=== PATIENT | male | born 1985 | race Caucasian/White ===

== ENCOUNTER 2017-09-25 07:00 | Inpatient (IN) ==
[2017-09-25] MEDS ORDERED: 0.9 % Sodium Chloride 1,000 ML IVC ONE (07:04)
[2017-09-25] MEDS ORDERED: Ondansetron 4 MG/2 ML VIAL IVP ONE ×2 (07:21→10:06)
--- NOTE | 2017-09-25 07:21 | Emergency Department Note ---
Disposition Clinical Impression: Dehydration, Noncompliance with medications, IV drug abuse, Metabolic acidosis DKA, type 1 Qualifiers: Diabetes mellitus complication detail: without coma Qualified Code(s): E10.10 - Type 1 diabetes mellitus with ketoacidosis without coma Disposition: Admitted As Inpatient Time of Disposition: 08:42 General Adult HPI - General Chief complaint: ED Nausea/Vomiting/Diarrhea Stated complaint: High Sugars Time Seen by Provider: 09/25/17 07:03 Source: EMS Mode of arrival: EMS Limitations: no limitations Nursing Notes Reviewed: Yes Vital Signs Reviewed: Yes - History of Present Illness HPI Narrative: 31-year-old insulin-dependent diabetic presents with complaint of "feeling rough ". He states he started feeling poorly yesterday. He requests water to drink. He mentions he has right chest wall pain. He has been nauseus. He states he has ran out of his 70/30, and NovoLog, because he no longer sees his PCP Dr. Holland, and normallly take 22u 70/30 am, 15units pm, and novolog sliding scale. He mentions he is [place] the [place]way where he has been residing for the past 2 days, previously he was from [facility]. He mentions a history of IV drug use, but denies any recent alcohol or illicit drug use. Squad reports pt admits heroin use 5 days ago. He denies fever, cough, abdominal pain, chest pain, shortness of breath. - Related Data Home Medications Medication Instructions Recorded Confirmed Gabapentin [Neurontin] 800 mg PO TID 09/25/17 09/25/17 Insulin ASPART [Novolog Flexpen] 2 - 10 unit SQ TIDWM 09/25/17 09/25/17 Insulin NPH Hum/Reg Insulin Hm 15 unit SQ HS 09/25/17 09/25/17 [Novolin 70-30 100 Unit/ml Vial] Insulin NPH Hum/Reg Insulin Hm 22 unit SQ QAM 09/25/17 09/25/17 [Novolin 70-30 100 Unit/ml Vial] Phenytoin ER [Dilantin ER] 100 mg PO TID 09/25/17 09/25/17 Allergies Allergy/AdvReac Type Severity Reaction Status Date / Time diphenhydramine Allergy Intermediate See Verified 09/25/17 07:34 [From Benadryl] Comments insulin glargine Allergy Blister Verified 09/25/17 07:34 [From Lantus] All systems ED: reviewed and negative except as stated. Constitutional: Denies: fever, chills Eyes: Denies: vision change ENT ED: Denies: throat pain Cardiovascular: Reports: as per HPI. Denies: chest pain, palpitations Respiratory: Reports: as per HPI. Denies: cough, dyspnea, wheezes Gastrointestinal: Reports: as per HPI. Denies: abdominal pain Genitourinary: Denies: dysuria Musculoskeletal: Denies: back pain Integumentary: Denies: rash Neurological: Denies: headache Endocrine: Denies: fatigue Hematological/Lymphatic: Denies: easy bleeding Allergic/Immunologic: Denies: facial swelling Past Medical History - Past Medical History Medical history: Reports: diabetes, hepatitis, seizures Physical Exam - General Limitations: no limitations General appearance: alert, in no apparent distress - Head Head exam: atraumatic, normocephalic - Eye Eye exam: Present: EOMI. Absent: conjunctival injection - ENT ENT exam: normal exam, mucous membranes moist, other (blue milky coating on tongue and lips/chin) - Neck Neck exam: Present: normal inspection, full ROM - Chest Chest inspection: Present: normal inspection, tenderness (right lateral chest wall). Absent: symmetric chest wall rise - Respiratory Respiratory exam: Present: normal lung sounds bilaterally. Absent: respiratory distress, wheezes, stridor - Cardiovascular Cardiovascular exam: Present: normal rhythm, tachycardia - Abdominal Exam Abdominal exam: Present: soft, Non-Tender - Extremities Exam Extremities exam: Present: normal inspection, full ROM, normal capillary refill - Back Exam Back exam: Present: normal inspection, full ROM. Absent: tenderness - Neurological Exam Neurological exam: Present: alert - Expanded Neurological Exam Patient oriented to: Present: person, place. Absent: time Speech: Present: fluid speech Coma Scale Eye Opening: To Voice Coma Scale Motor Response: Obeys Commands Coma Scale Verbal Response: Oriented Coma Scale Total: 14 - Psychiatric Psychiatric exam: Present: normal affect, normal mood - Skin Skin exam: Present: warm, dry, intact, normal color. Absent: rash, cyanosis, diaphoresis Course Course Narrative: 31-year-old insulin-dependent diabetic male arrives via squad with reported hyperglycemia. Squad reports this monitor read high. Squad unable to get IV access. Patient seen upon his arrival to exam room. He is alert, oriented to self and location but not to time. Slightly tachycardic. No notable injury to head and face extremities back or abdomen. Mouth/lips blue coating- pt thinks its from koolaid last night. Complaining of right chest wall pain, but no shortness of breath, cyanosis or diaphoresis. . Lungs clear to auscultation. Abdomen nontender. Good distal pulses. Full use of extremities, able to ambulate. Accu-Chek 552. Slightly Tachy at 108, and hypertenisve, otherwise afebrile and respirs at 22. EKG- tacycardic 114, short CA interval. Nursing attempting IV access. Workup initiated. - Reevaluation(s) Reevaluation #1: Patient has known history of diabetes, noncompliant with insulin regimen. Workup shows elevated blood glucose, serum ketones, ABG pH 7.14. Fluids ordered. Patient discussed with Dr. Saurabh Mack, who agreed for admission for DKA Hospitalist hilario. Time: 08:41 Reevaluation #2: I discussed patient with Matt Islas [employer], who requested information on patient's sepsis criteria. Discussed with Dr. Jennings who agreed respirations, heart rate consistent with metabolic acidosis, wbc reactionary and patient is responding to fluids. Time: 09:43 Reevaluation #3: Dr. Saurabh Mack and I discussed patient's vitals with Matt Islas [employer] consistent with metabolic acidosis from DKA due to h/o of medication non compliance. with hospitalist Dr. Islas who agreed to accept patient but requested IV vancomycin and Zosyn. Time: 09:59 Vital Signs Temperature 98.1 F 09/25/17 07:14 Pulse Rate 104 09/25/17 07:14 Respiratory Rate 22 09/25/17 07:14 Blood Pressure 160/87 09/25/17 07:14 O2 Sat by Pulse Oximetry 98 09/25/17 07:14 Temperature 98.1 F 09/25/17 07:37 Pulse Rate 116 09/25/17 07:37 Respiratory Rate 22 09/25/17 07:37 Blood Pressure 000/000 09/25/17 07:37 O2 Sat by Pulse Oximetry 100 09/25/17 07:56 Oxygen Delivery Oxygen Delivery Room Air Medical Decision Making - Lab Data Lab results reviewed: Yes I reviewed the patient's lab results. Result diagrams: 09/25/17 07:40 09/25/17 07:40 Lab Results 09/25/17 09/25/17 09/25/17 Range/Units 07:07 07:08 07:40 WBC 16.3 H (4.3-11.1) K/mcL RBC 4.98 (4.19-5.50) M/mcL Hgb 14.4 (12.9-16.9) g/dL Hct 44.0 (37.5-50.1) % MCV 88.4 (83.0-100.0) fL MCH 28.9 (28.0-33.3) pg MCHC 32.7 (31.6-35.5) g/dL RDW 13.4 (11.5-14.5) % Plt Count 368 (140-400) K/mcL MPV 9.0 L (9.4-12.4) fL Immature Gran % 0.8 (0-4) % Seg Neutrophils % 92.5 % Lymphocytes % 4.2 % Monocytes % 2.1 % Eosinophils % 0.0 % Basophils % 0.4 % Neutrophils # 15.1 H (1.6-8.9) K/mcL Lymphocytes # 0.7 (0.6-4.6) K/mcL Monocytes # 0.4 (0.0-1.3) K/mcL Eosinophils # 0.0 (0.0-0.6) K/mcL Basophils # 0.1 (0.0-0.2) K/mcL VBG pH (7.32-7.42) pH Units VBG pCO2 (41-51) mmHg VBG pO2 (25-50) mmHg VBG HCO3 (21-27) mEq/L Sodium (136-145) mEq/L Potassium (3.5-4.5) mEq/L Chloride (98-109) mEq/L Carbon Dioxide (19-29) mEq/L BUN (8-26) mg/dL Creatinine (0.72-1.25) mg/dL Est GFR ( Amer) (> 60) Est GFR (Non-Af Amer) (> 60) BUN/Creatinine Ratio (6-26) Glucose (70-99) mg/dL POC Glucose 545 H* 552 H* (58-89) Calculated Osmolality (280-300) Calcium (8.6-10.8) mg/dL Total Bilirubin (0.2-1.2) mg/dL Direct Bilirubin (0.0-0.5) mg/dL Indirect Bilirubin (0.0-1.2) mg/dL AST (5-34) Units/L ALT (0-55) Units/L Alkaline Phosphatase (38-126) Units/L Creatine Kinase (30-200) Units/L Serum Total Protein (6.0-8.3) g/dL Albumin (3.5-5.0) g/dL Globulin (2.4-3.5) g/dL Albumin/Globulin Ratio (1.1-2.2) Lipase (8-78) Units/L Beta-Hydroxybutyric Acd (0.02-0.27) mmol/L Urine Color (Yellow) Urine Clarity (Clear) Urine pH (5.0-8.0) pH Units Ur Specific [place] (1.010-1.025) Urine Protein (Neg-Trace) mg/dL Urine Glucose (UA) (Normal) mg/dL Urine Ketones (Negative) mg/dL Urine Blood (Negative) Urine Nitrite (Negative) Urine Bilirubin (Negative) Urine Urobilinogen (Normal) mg/dL Ur Leukocyte Esterase (Negative) Ur Culture Indicated? (NO) Urine Opiates Screen (Dpzbtu=975) ng/mL Ur Barbiturates Screen (Zrgzxa=693) ng/mL Ur Phencyclidine Scrn (Cutoff=25) ng/mL Ur Amphetamines Screen (Mxzdfh=5729) ng/mL U Benzodiazepines Scrn (Ovvkje=313) ng/mL Urine Cocaine Screen (Cutoff= 300) ng/mL U Marijuana (THC) Screen (Cutoff = 50) ng/mL Ethyl Alcohol (0-10) mg/dL Person Notif of Crit 09/25/17 09/25/17 09/25/17 Range/Units 07:40 08:05 08:26 WBC (4.3-11.1) K/mcL RBC (4.19-5.50) M/mcL Hgb (12.9-16.9) g/dL Hct (37.5-50.1) % MCV (83.0-100.0) fL MCH (28.0-33.3) pg MCHC (31.6-35.5) g/dL RDW (11.5-14.5) % Plt Count (140-400) K/mcL MPV (9.4-12.4) fL Immature Gran % (0-4) % Seg Neutrophils % % Lymphocytes % % Monocytes % % Eosinophils % % Basophils % % Neutrophils # (1.6-8.9) K/mcL Lymphocytes # (0.6-4.6) K/mcL Monocytes # (0.0-1.3) K/mcL Eosinophils # (0.0-0.6) K/mcL Basophils # (0.0-0.2) K/mcL VBG pH 7.14 L* (7.32-7.42) pH Units VBG pCO2 30 L (41-51) mmHg VBG pO2 117 H (25-50) mmHg VBG HCO3 10 L (21-27) mEq/L Sodium 129 L (136-145) mEq/L Potassium 5.4 H (3.5-4.5) mEq/L Chloride 88 L (98-109) mEq/L Carbon Dioxide 7 L* (19-29) mEq/L BUN 32 H (8-26) mg/dL Creatinine 1.61 H (0.72-1.25) mg/dL Est GFR ( Amer) > 60 (> 60) Est GFR (Non-Af Amer) 50 L (> 60) BUN/Creatinine Ratio 20 (6-26) Glucose 671 H* (70-99) mg/dL POC Glucose (58-89) Calculated Osmolality 307 H (280-300) Calcium 9.9 (8.6-10.8) mg/dL Total Bilirubin 0.6 (0.2-1.2) mg/dL Direct Bilirubin 0.3 (0.0-0.5) mg/dL Indirect Bilirubin 0.3 (0.0-1.2) mg/dL AST 47 H (5-34) Units/L ALT 63 H (0-55) Units/L Alkaline Phosphatase 156 H (38-126) Units/L Creatine Kinase 37 (30-200) Units/L Serum Total Protein 8.2 (6.0-8.3) g/dL Albumin 4.5 (3.5-5.0) g/dL Globulin 3.7 H (2.4-3.5) g/dL Albumin/Globulin Ratio 1.2 (1.1-2.2) Lipase < 10 (8-78) Units/L Beta-Hydroxybutyric Acd > 2.00 H (0.02-0.27) mmol/L Urine Color Yellow (Yellow) Urine Clarity Clear (Clear) Urine pH 5.5 (5.0-8.0) pH Units Ur Specific [place] 1.030 H (1.010-1.025) Urine Protein Negative (Neg-Trace) mg/dL Urine Glucose (UA) >=1000 H (Normal) mg/dL Urine Ketones 80 H (Negative) mg/dL Urine Blood Negative (Negative) Urine Nitrite Negative (Negative) Urine Bilirubin Negative (Negative) Urine Urobilinogen Normal (Normal) mg/dL Ur Leukocyte Esterase Negative (Negative) Ur Culture Indicated? NO (NO) Urine Opiates Screen (Wgdoaf=062) ng/mL Ur Barbiturates Screen (Oxnthh=330) ng/mL Ur Phencyclidine Scrn (Cutoff=25) ng/mL Ur Amphetamines Screen (Himkji=9220) ng/mL U Benzodiazepines Scrn (Zqybay=992) ng/mL Urine Cocaine Screen (Cutoff= 300) ng/mL U Marijuana (THC) Screen (Cutoff = 50) ng/mL Ethyl Alcohol < 10 (0-10) mg/dL Person Notif of [place] Willis 09/25/17 09/25/17 Range/Units 08:26 09:46 WBC (4.3-11.1) K/mcL RBC (4.19-5.50) M/mcL Hgb (12.9-16.9) g/dL Hct (37.5-50.1) % MCV (83.0-100.0) fL MCH (28.0-33.3) pg MCHC (31.6-35.5) g/dL RDW (11.5-14.5) % Plt Count (140-400) K/mcL MPV (9.4-12.4) fL Immature Gran % (0-4) % Seg Neutrophils % % Lymphocytes % % Monocytes % % Eosinophils % % Basophils % % Neutrophils # (1.6-8.9) K/mcL Lymphocytes # (0.6-4.6) K/mcL Monocytes # (0.0-1.3) K/mcL Eosinophils # (0.0-0.6) K/mcL Basophils # (0.0-0.2) K/mcL VBG pH (7.32-7.42) pH Units VBG pCO2 (41-51) mmHg VBG pO2 (25-50) mmHg VBG HCO3 (21-27) mEq/L Sodium (136-145) mEq/L Potassium (3.5-4.5) mEq/L Chloride (98-109) mEq/L Carbon Dioxide (19-29) mEq/L BUN (8-26) mg/dL Creatinine (0.72-1.25) mg/dL Est GFR ( Amer) (> 60) Est GFR (Non-Af Amer) (> 60) BUN/Creatinine Ratio (6-26) Glucose (70-99) mg/dL POC Glucose 514 H* (58-89) Calculated Osmolality (280-300) Calcium (8.6-10.8) mg/dL Total Bilirubin (0.2-1.2) mg/dL Direct Bilirubin (0.0-0.5) mg/dL Indirect Bilirubin (0.0-1.2) mg/dL AST (5-34) Units/L ALT (0-55) Units/L Alkaline Phosphatase (38-126) Units/L Creatine Kinase (30-200) Units/L Serum Total Protein (6.0-8.3) g/dL Albumin (3.5-5.0) g/dL Globulin (2.4-3.5) g/dL Albumin/Globulin Ratio (1.1-2.2) Lipase (8-78) Units/L Beta-Hydroxybutyric Acd (0.02-0.27) mmol/L Urine Color (Yellow) Urine Clarity (Clear) Urine pH (5.0-8.0) pH Units Ur Specific [place] (1.010-1.025) Urine Protein (Neg-Trace) mg/dL Urine Glucose (UA) (Normal) mg/dL Urine Ketones (Negative) mg/dL Urine Blood (Negative) Urine Nitrite (Negative) Urine Bilirubin (Negative) Urine Urobilinogen (Normal) mg/dL Ur Leukocyte Esterase (Negative) Ur Culture Indicated? (NO) Urine Opiates Screen Negative (Ldxtsk=883) ng/mL Ur Barbiturates Screen Negative (Nxlnmf=713) ng/mL Ur Phencyclidine Scrn Negative (Cutoff=25) ng/mL Ur Amphetamines Screen Negative (Kmrxhq=8529) ng/mL U Benzodiazepines Scrn Negative (Ooielg=213) ng/mL Urine Cocaine Screen Negative (Cutoff= 300) ng/mL U Marijuana (THC) Screen Negative (Cutoff = 50) ng/mL Ethyl Alcohol (0-10) mg/dL Person Notif of Crit - Radiology Data Radiology results reviewed: Yes I reviewed the patient's radiology results. - EKG Data EKG #1 EKG attestation: Yes I reviewed and interpreted this EKG. EKG results narrative: sinus tachy at 114, with short CA interval of 96, QRS dur 93, QTQTC 359/417 EKG shows normal: sinus rhythm Rate: tachycardia When compared to previous EKG there are: previous EKG unavailable Attestation Statement - Attestation Attestation: For this encounter, I have reviewed the [employer] or PA documentation, treatment plan, and medical decision making; and I have had face to face time with this patient. Patient is a 31-year-old white male with history of insulin-dependent diabetes mellitus and IV drug abuse who presents to the emergency department by EMS this morning from a homeless half-way for complaints of intractable nausea and vomiting, polydipsia and "just feeling rough". Patient states he has been out of his diabetic medicines he states for the past 2-3 days as he no longer sees the physician who is prescribing them. Patient states he has been diabetic for approximately 6 years and has never been hospitalized for high sugars in the past. Patient reports using heroin last approximately 5 days ago. Patient denies any preceding URI symptoms sore throat or cough, no bowel changes or abdominal pain, no urinary symptoms. Patient arrives actively vomiting by EMS. Patient also complained of some right-sided chest discomfort. Patient arrives hemodynamically stable, tachycardic and appears clinically dry. I agree with patient's physical exam findings as documented. Patient is awake alert and oriented 4 for me on my assessment. Patient states he began feeling bad yesterday and right now his only complaint is intense thirst and is requesting something to drink. Patient's EKG was sinus tachycardia with no acute ST or T-wave changes appreciated. There is no old EKG in our system for comparison. We are awaiting chest x-ray findings at this time. Patient's lab evaluation shows a gap metabolic acidosis with a bicarbonate of 7 and a significantly elevated glucose in the 600s. Patient has received 1 L of fluids on arrival we are starting a second liter of fluids as well as initiating insulin drip. Patient has had no further vomiting while in the department. Heart rate is responding nicely to fluids. Patient will be admitted to the hospitalist service for continued management of DKA. Case will be discussed with them and they have been paged. Patient's vital slowly improving with IV fluids. Patient has received 2 L of fluid and insulin drip running at this time. Sent a repeat BMP. Clinically there is no infectious etiology or symptoms that led up to patient's elevated sugars clinically by history as well as on exam. Chest x-ray is clear. Patient admits to medication noncompliance and also has known IV drug history. Feel the patient's metabolic drainage mincer secondary to his medication noncompliance. Physiologically patient would be tachycardic and Neck secondary to his level of acidosis and dehydration. Hospitalist requested we initiate Zosyn and vancomycin for empiric antibiotic coverage due to patient meeting sepsis criteria although I feel that the pt's metabolic derangements due to medical metabolic issues. Pt accepted to hospitalist service.
[2017-09-25 07:50] LABS: Basophils # 0.1 K/mcL (0.0-0.2); Basophils % 0.4 %; Hemoglobin 14.4 g/dL (12.9-16.9); Immature Granulocytes % 0.8 % (0-4); Lymphocytes # 0.7 K/mcL (0.6-4.6); Lymphocytes % 4.2 %; Mean Corpuscular HGB Conc 32.7 g/dL (31.6-35.5); Mean Corpuscular Hemoglobin 28.9 pg (28.0-33.3); Mean Corpuscular Volume 88.4 fL (83.0-100.0); Monocytes # 0.4 K/mcL (0.0-1.3); Monocytes % 2.1 %; Neutrophils # 15.1 K/mcL (1.6-8.9); Platelet Count 368 K/mcL (140-400); Red Blood Count 4.98 M/mcL (4.19-5.50); Red Cell Distribution Width 13.4 % (11.5-14.5); Segmented Neutrophils % 92.5 %
[2017-09-25 07:55] LABS: Beta-Hydroxybutyric Acid > 2.00 mmol/L (0.02-0.27)
[2017-09-25 08:10] LABS: Alanine Aminotransferase 63 Units/L (0-55); Albumin 4.5 g/dL (3.5-5.0); Albumin/Globulin Ratio 1.2 (1.1-2.2); Alkaline Phosphatase 156 Units/L (38-126); Aspartate Amino Transferase 47 Units/L (5-34); BUN/Creatinine Ratio 20 (6-26); Bilirubin,Direct 0.3 mg/dL (0.0-0.5); Bilirubin,Indirect 0.3 mg/dL (0.0-1.2); Bilirubin,Total 0.6 mg/dL (0.2-1.2); Blood Urea Nitrogen 32 mg/dL (8-26); Calcium 9.9 mg/dL (8.6-10.8); Chloride 88 mEq/L (98-109); Creatine Kinase 37 Units/L (30-200); Globulin 3.7 g/dL (2.4-3.5); Osmolality,Calculated 307 (280-300); Potassium 5.4 mEq/L (3.5-4.5); Sodium 129 mEq/L (136-145); Total Protein 8.2 g/dL (6.0-8.3); eGFR For African Americans > 60 (> 60); eGFR For Non-African Americans 50 (> 60)
[2017-09-25 08:19] LABS: VBG HCO3 10 mEq/L (21-27); VBG PCO2 30 mmHg (41-51); VBG PH 7.14 pH Units (7.32-7.42); VBG PO2 117 mmHg (25-50)
[2017-09-25 08:24] LABS: Ethanol < 10 mg/dL (0-10); Lipase < 10 Units/L (8-78)
[2017-09-25 08:27] LABS: Carbon Dioxide 7 mEq/L (19-29)
[2017-09-25 08:28] LABS: Glucose 671 mg/dL (70-99)
[2017-09-25] MEDS ORDERED: Insulin Human Regular 100 UNIT in 0.9 % Sodium Chloride 100 ML IVC SCH (08:30)
[2017-09-25 08:33] LABS: Bilirubin,Urine Negative (Negative); Blood,Urine Negative (Negative); Clarity,Urine Clear (Clear); Color,Urine Yellow (Yellow); Glucose,Urine (UA) >=1000 mg/dL (Normal); Ketones,Urine 80 mg/dL (Negative); Leukocyte Esterase,Urine Negative (Negative); Nitrite,Urine Negative (Negative); PH,Urine 5.5 pH Units (5.0-8.0); Protein,Urine Negative (Neg-Trace); Urobilinogen,Urine Normal (Normal)
[2017-09-25 08:40] LABS: Amphetamine Screen,Urine Negative ng/mL (Cutoff=1000); Barbiturate Screen,Urine Negative ng/mL (Cutoff=200); Benzodiazepines Screen,Urine Negative ng/mL (Cutoff=200); Cannabinoid Screen,Urine Negative ng/mL (Cutoff = 50); Cocaine Screen,Urine Negative ng/mL (Cutoff= 300); Opiate Screen,Urine Negative ng/mL (Cutoff=300); Phencyclidine Screen,Urine Negative ng/mL (Cutoff=25)
[2017-09-25] MEDS ORDERED: Piperacillin/Tazobactam 3.375 GM in D5% in Water (Mini-Bag+) 100 ML IVPB ONE (09:58)
[2017-09-25] MEDS ORDERED: Vancomycin 1,250 MG in D5% in Water 250 ML IVPB ONE (09:58)
[2017-09-25] MEDS: 0.9 % Sodium Chloride 1,000 ML IVC SCH ×6 (10:08→14:23)
[2017-09-25 10:20] LABS: BUN/Creatinine Ratio 18 (6-26); Blood Urea Nitrogen 29 mg/dL (8-26); Calcium 9.3 mg/dL (8.6-10.8); Chloride 93 mEq/L (98-109); Osmolality,Calculated 305 (280-300); Potassium 5.6 mEq/L (3.5-4.5); Sodium 131 mEq/L (136-145); eGFR For African Americans > 60 (> 60); eGFR For Non-African Americans 51 (> 60)
[2017-09-25 10:23] LABS: Carbon Dioxide 8 mEq/L (19-29); Glucose 595 mg/dL (70-99)
[2017-09-25] MEDS ORDERED: Naloxone 0.4 MG/ML INJ IVP PRN (10:40)
[2017-09-25] MEDS ORDERED: Ondansetron 4 MG/2 ML VIAL IVP PRN (10:40)
[2017-09-25] MEDS ORDERED: D5% in Water 1,000 ML IVC PRN (11:00)
[2017-09-25] MEDS ORDERED: Vancomycin 1,250 MG in D5% in Water 250 ML IVPB SCH (11:00)
[2017-09-25] MEDS ORDERED: Dextrose Gel 15 GM PO PRN ×2 (11:00)
[2017-09-25] MEDS ORDERED: *HR* Dextrose 50 % in Water (Syg) 50 ML SYRINGE IVP PRN ×2 (11:00→13:08)
[2017-09-25 12:03] LABS: BUN/Creatinine Ratio 19 (6-26); Blood Urea Nitrogen 27 mg/dL (8-26); Calcium 8.5 mg/dL (8.6-10.8); Chloride 101 mEq/L (98-109); Glucose 421 mg/dL (70-99); Osmolality,Calculated 299 (280-300); Potassium 4.7 mEq/L (3.5-4.5); Sodium 133 mEq/L (136-145); eGFR For African Americans > 60 (> 60); eGFR For Non-African Americans 56 (> 60)
[2017-09-25 12:05] LABS: Carbon Dioxide 8 mEq/L (19-29)
--- NOTE | 2017-09-25 12:21 | Internal Med History&Physical ---
<RoshanMatt Casarez - Last Filed: 09/25/17 14:12> Date of Encounter: 09/25/17 Time of Encounter: 09:30 Assessment and Plan (1) Sepsis Current visit: Yes Status: Acute Pt. presents w/sepsis criteria of WBC 16..3, HR 116 bpm, RR 24. Pt. currently in DKA w/infection source unknown. IV 0.9 NS 30 mL/kg then 125 mL/HR following. Blood cultures x2. Lactic acid 2.8 on admission, 1.6 following fluids. IVPB vancomycin pharmacy dosing and Zosyn 3.375 gm every 8 hours for infection coverage. Continous cardiac telemetry. Supplemental O2 w/titration and SpO2 monitoring. Pt. to be monitored closely for signs of increasing infection, cardiac, and/or respiratory distress. Pt. high risk for further infection/ morbidity based on current symptoms, history, and risk factors. Inpatient. Qualifiers: Sepsis type: sepsis due to unspecified organism Qualified Code(s): A41.9 - Sepsis, unspecified organism (2) Nausea & vomiting Current visit: Yes Status: Acute Pt. presents with acute N/V/diarrhea for the past 24 hours. Dehydrated. IV 0.9 NS 30 mL/kg per sepsis protocol. IVP Zofran Q6 PRN. IVP Protonix 40 mg BID. Monitor I&O. Qualifiers: Vomiting type: cyclical vomiting Vomiting Intractability: non-intractable Qualified Code(s): G43.A0 - Cyclical vomiting, not intractable (3) DKA, type 1 Current visit: Yes Status: Acute Pt. presents w/DKA and sepsis. No known infection source. Pt. receiving IV fluids d/t DKA/sepsis/dehydration. Insulin drip. BG checks Q2HR to start, then ACHS. IVPB vancomycin pharmacy dosing and Zosyn 3.375 gm every 8 for infection coverage. Qualifiers: Diabetes mellitus complication detail: without coma Qualified Code(s): E10.10 - Type 1 diabetes mellitus with ketoacidosis without coma (4) Dehydration Current visit: Yes Status: Acute Pt. currently dehydrated d/t N/V/Diarrhea. Pt. received 30 mL/kg per sepsis protocol. 125 mL/HR to follow. Monitor I&O. (5) Hepatitis C Current visit: Yes Status: Chronic Hx of chronic hepatatis C. AST 47, ALT 63. Qualifiers: Viral hepatitis chronicity: unspecified Hepatic coma status: without hepatic coma Qualified Code(s): B19.20 - Unspecified viral hepatitis C without hepatic coma (6) History of seizures Current visit: Yes Status: Chronic Pt. reports hx of seizures in the past. Currently takes Dilantin XR for seizures. Ativan Q2 PRN. Seizure precautions. Pt. to be monitored closely. (7) IV drug abuse Current visit: Yes Status: Chronic Hx of IV drug use. Pt. states he last used meth 4 days ago. Tox screen currently negative. (8) Noncompliance with medications Current visit: Yes Status: Chronic Pt. reports non-compliance w/medications d/t lack of PCP. SW consult ordered to provide information regarding placement, insurance needs, and PCPs. (9) DVT prophylaxis Current visit: Yes Status: Acute Heparin 5,000 units SQ Q8 for DVT prophylaxis. Internal Medicine - H&P: HPI Chief complaint: Nausea/Vomiting/Diarrhea Admitted From: Emergency Dept Plans for Post Hospital Care: Transfer Other History of present illness: Mr. Lemus is a 31 year old male with medical history of diabetes, hepatitis C, and seizures presents from the ED with chief complaint of nausea, vomiting, RLQ abdominal pain, and diarrhea for the 24 hours. Pt. reports his diabetes is not controlled because he has no current PCP and is homeless. Pt. states he has been staying at the homeless residential for the past 48 hours. States he has hx of IV drug abuse and used meth 4 days ago. Pts. BG is high at 421 at admission and found to be in DKA. Patient reports nausea, vomiting, RLQ pain, and diarrhea but denies recent illness, fever, chills, changes in vision, unusual bleeding, headache, dizziness, lightheadedness, pre-syncope, and syncope. Past Med Surg Social Fam HX - Past Medical History Source: patient, old records reviewed Medical history: diabetes, hepatitis (type C), seizures Psychiatric history: no psych history - Social History Smoking Status: Current every day smoker Packs per day: 1 PPD Smokeless Tobacco Status: No Alcohol use: none Drug use: methamphetamine, IV Drug Use Current living situation: Other Activity Level: Independent ambulation Recent Out of Country Travel Within the Last 8 Weeks: No Exposure or Possible Exposure to Illness During Travel: No - Family History Father Race: Family Member Ethnicity: Non- Living Status: Age at : 55 Cause of : NE Hx Family Cardiac Disorders: Yes (NE) Hx Family Endocrine Disorder: Yes (DM) Mother Race: Family Member Ethnicity: Non- Living Status: Still Living Hx Family Medical Disorders: No Sister History Unknown: Yes Race: Family Member Ethnicity: Non- Living Status: Still Living Internal Medicine - H&P: Meds Gabapentin [Neurontin] 800 mg PO TID 09/25/17 [History] Insulin ASPART [Novolog Flexpen] 2 - 10 unit SQ TIDWM 09/25/17 [History] Insulin NPH Hum/Reg Insulin Hm [Novolin 70-30 100 Unit/ml Vial] 15 unit SQ HS [History] Insulin NPH Hum/Reg Insulin Hm [Novolin 70-30 100 Unit/ml Vial] 22 unit SQ QAM 09/25/17 [History] Phenytoin ER [Dilantin ER] 100 mg PO TID 09/25/17 [History] 3 Allergy/AdvReac Type Severity Reaction Status Date / Time diphenhydramine Allergy Intermediate See Verified 09/25/17 07:34 [From Benadryl] Comments insulin glargine Allergy Blister Verified 09/25/17 07:34 [From Lantus] All Systems PM: A 10-system review of systems was performed and is negative for pertinent findings except as documented above in the HPI. - Constitutional Constitutional: no chills, no fever(s), no night sweats - EENT Eyes: no change in vision, no discharge, no pain, no photophobia Ears: no ear discharge, no ear pain, no tinnitus Nose, mouth and throat: no dysphagia, no nasal discharge, no neck pain, no sore throat - Breasts Breasts: as per HPI - Cardiovascular Cardiovascular ROS IM: no chest pain, no diaphoresis, no dyspnea, no lightheadedness, no palpitations, no syncope - Respiratory Respiratory: no cough, no dyspnea, no wheezing, no excessive phlegm production - Gastrointestinal Gastrointestinal: as per HPI, abdominal pain, diarrhea, nausea, vomiting - Genitourinary Genitourinary ROS male: as per HPI - Musculoskeletal Musculoskeletal ROS IM: no numbness, no tingling - Integumentary Integumentary IM: no rash, no unusual bruising - Neurological Neurological ROS: no confusion, no convulsions, no focal weakness, no numbness, no tingling, no tremor(s) - Psychiatric Psychiatric: as per HPI, anxiety, depression - Endocrine Endocrine IM: as per HPI - Hematologic/Lymphatic Hematologic/Lymphatic: no easy bruising - Allergic/Immunologic Allergic/Immunologic: as per HPI - Constitutional Vitals: Temp Pulse Resp BP Pulse Ox 98.1 F 96 18 152/86 100 09/25/17 10:50 09/25/17 12:02 09/25/17 12:02 09/25/17 12:02 09/25/17 12:02 General appearance: Present: cooperative, mild distress, A&O X 3, answers questions appropriately - Head Head exam: Present: atraumatic, normocephalic - Eye Eye exam: Present: PERRL, conjuntiva pink, sclera anicteric Pupils: Present: PERRL - ENT ENT exam: Present: normal exam - Neck Neck exam general surgery: Present: normal inspection, supple, trachea midline. Absent: lymphadenopathy - Respiratory Respiratory exam: Present: tachypnea. Absent: accessory muscle use, rales, rhonchi, wheezes - Cardiovascular Cardiovascular exam: Present: tachycardia - GI/Abdominal GI/Abdominal exam: Present: guarding (RLQ), normal bowel sounds, soft, tenderness (RLQ), no peritoneal signs. Absent: distended - Rectal Rectal exam: Present: deferred - Additional comments: exam deferred. - Extremities Exam Extremities exam: Present: warm, radial pulses palpable and symmetrical. Absent : calf tenderness, cyanotic, pedal edema - Back Exam Back exam: Present: normal inspection - Neurological Exam Neurological exam: Present: CN II-XII intact, oriented X3, no focal deficits. Absent: pronater drift, facial droop, speech deficit - Psychiatric Psychiatric exam: Present: anxious - Skin Skin exam: Present: dry, intact Internal Med - H&P Results - Labs CBC & Chem 7: 09/25/17 07:40 09/25/17 11:45 Labs: BMP 09/25/17 11:45 Sodium 133 L Potassium 4.7 H Chloride 101 Carbon Dioxide 8 L* BUN 27 H Creatinine 1.45 H Glucose 421 H Calcium 8.5 L - EKG Data EKG shows normal: sinus rhythm Rate: tachycardia - EKG Data Prior EKG available for review: no EKG comments: 09/25/17 12:55 EKG dated 09/25/17 shows sinus tachycardia with short AK interval. Abnormal rhythm ECG. - Diagnostic Studies Chest x-ray Additional comments: Impressions Chest X-Ray 09/25/17 07:20 IMPRESSION: No acute cardiopulmonary disease. D/ / Adithya Galvan MD / Adithya Galvna MD Interpreting Provider: Adithya Galvan MD <Aiden Cuadra P - Last Filed: 09/25/17 18:01> Date of Encounter: 09/25/17 Internal Medicine - H&P: HPI History of present illness: Mr. Lemus is a 31 year old male All Systems PM: A 10-system review of systems was performed and is negative for pertinent findings except as documented above in the HPI. - Constitutional Vitals: Temp Pulse Resp BP Pulse Ox 98.0 F 93 18 124/78 99 09/25/17 16:17 09/25/17 16:17 09/25/17 16:17 09/25/17 16:17 09/25/17 16:17 Internal Med - H&P Results - Labs CBC & Chem 7: 09/25/17 07:40 09/25/17 11:45 Labs: BMP 09/25/17 11:45 Sodium 133 L Potassium 4.7 H Chloride 101 Carbon Dioxide 8 L* BUN 27 H Creatinine 1.45 H Glucose 421 H Calcium 8.5 L - Impressions ITS Impressions Abdomen/Pelvis CT 09/25/17 13:15 IMPRESSION: Negative noncontrast CT of the abdomen and pelvis. D/ / Abram Murillo MD / Abram Murillo MD Interpreting Provider: Abram Murillo MD - Attending Attestation I examined this patient and my medical decision-making was reviewed with the Resident Physician. I agree with the documented findings, disposition and treatment plan as described except to the extent set forth below. 31/male Known to have diabetes for more than 6 years. His on insulin for his diabetes. Very uncooperative patient and not sure whether this is a type 1 diabetes type 2 diabetes. Patient claims that he ran of his insulin and he does not have a PCP. Patient is in mild DKA. We will follow the DKA protocol. Precipitation of DKA is likely secondary to infection. And is currently on antibiotics. Source of infection: Unclear at this point We will continue the symptomatic treatment.
[2017-09-25] MEDS ORDERED: Insulin Regular, Human 100 UNIT/ML IV PRN (13:08)
[2017-09-25] MEDS ORDERED: D5% in 0.45% NACL 1,000 ML IVC PRN (13:08)
[2017-09-25] MEDS: 0.45 % Sodium Chloride w/KCl 20 MEQ/1,000 ML MLS IVC SCH ×2 (13:21→20:50)
[2017-09-25] MEDS: Gabapentin 400 MG CAPSULE PO SCH ×2 (13:24→20:50)
[2017-09-25] MEDS: Piperacillin/Tazobactam 3.375 GM in D5% in Water (Mini-Bag+) 100 ML IVPB SCH ×2 (13:27→23:29)
[2017-09-25] MEDS: *HR* Heparin 5,000 UNIT/ML VIAL SQ SCH ×2 (15:23→23:29)
[2017-09-25 20:02] LABS: BUN/Creatinine Ratio 16 (6-26); Blood Urea Nitrogen 18 mg/dL (8-26); Calcium 8.9 mg/dL (8.6-10.8); Carbon Dioxide 15 mEq/L (19-29); Chloride 105 mEq/L (98-109); Glucose 196 mg/dL (70-99); Osmolality,Calculated 289 (280-300); Potassium 4.5 mEq/L (3.5-4.5); Sodium 136 mEq/L (136-145); eGFR For African Americans > 60 (> 60); eGFR For Non-African Americans > 60 (> 60)
[2017-09-25] MEDS ORDERED: D5% in 0.45% NACL w KCl 20 MEQ/1,000 ML MLS IVC PRN (20:30)
[2017-09-25] MEDS: *HR* LORazepam 2 MG/ML VIAL IVP PRN (20:49)
[2017-09-25] MEDS: Pantoprazole 40 MG VIAL IVP SCH (20:49)
[2017-09-25] MEDS: *HR* HYDROmorphone (PF) 1 MG/ML SYRINGE IVP PRN (20:49)
[2017-09-25] MEDS: Vancomycin 1,250 MG in D5% in Water 250 ML IVPB SCH (23:29)
[2017-09-26] MEDS: *HR* LORazepam 2 MG/ML VIAL IVP PRN (00:05)
[2017-09-26 00:59] LABS: Basophils % 0.1 %; Eosinophils % 0.1 %; Hematocrit 34.9 % (37.5-50.1); Immature Granulocytes % 0.6 % (0-4); Lymphocytes # 1.7 K/mcL (0.6-4.6); Mean Corpuscular HGB Conc 33.8 g/dL (31.6-35.5); Mean Corpuscular Hemoglobin 29.1 pg (28.0-33.3); Mean Platelet Volume 8.9 fL (9.4-12.4); Monocytes # 0.7 K/mcL (0.0-1.3); Monocytes % 5.2 %; Neutrophils # 11.3 K/mcL (1.6-8.9); Platelet Count 278 K/mcL (140-400); Red Blood Count 4.06 M/mcL (4.19-5.50); Red Cell Distribution Width 13.6 % (11.5-14.5)
[2017-09-26 01:00] LABS: Hemoglobin 11.8 g/dL (12.9-16.9)
[2017-09-26 01:05] LABS: BUN/Creatinine Ratio 15 (6-26); Blood Urea Nitrogen 15 mg/dL (8-26); Calcium 8.5 mg/dL (8.6-10.8); Carbon Dioxide 19 mEq/L (19-29); Chloride 106 mEq/L (98-109); Glucose 143 mg/dL (70-99); Hemoglobin A1C 10.4 %; Osmolality,Calculated 281 (280-300); Potassium 3.7 mEq/L (3.5-4.5); Sodium 134 mEq/L (136-145); eGFR For African Americans > 60 (> 60); eGFR For Non-African Americans > 60 (> 60)
[2017-09-26 01:10] LABS: Alanine Aminotransferase 57 Units/L (0-55); Albumin/Globulin Ratio 1.1 (1.1-2.2); Alkaline Phosphatase 105 Units/L (38-126); Aspartate Amino Transferase 63 Units/L (5-34); BUN/Creatinine Ratio 15 (6-26); Bilirubin,Total 0.5 mg/dL (0.2-1.2); Blood Urea Nitrogen 15 mg/dL (8-26); Calcium 8.5 mg/dL (8.6-10.8); Carbon Dioxide 19 mEq/L (19-29); Chloride 107 mEq/L (98-109); Chol/HDL Ratio 4.6 (0-4.9); Cholesterol 179 mg/dL (< 200); Globulin 2.9 g/dL (2.4-3.5); Glucose 147 mg/dL (70-99); HDL Cholesterol 39 mg/dL (40-59); LDL Cholesterol,Calculated 125 mg/dL (0-99); Magnesium 1.9 mg/dL (1.6-2.6); Osmolality,Calculated 280 (280-300); Potassium 3.7 mEq/L (3.5-4.5); Sodium 133 mEq/L (136-145); Triglycerides 73 mg/dL (< 150); eGFR For African Americans > 60 (> 60); eGFR For Non-African Americans > 60 (> 60)
[2017-09-26 01:11] LABS: Albumin 3.3 g/dL (3.5-5.0); Total Protein 6.2 g/dL (6.0-8.3)
[2017-09-26] MEDS: 0.9 % Sodium Chloride 1,000 ML IVC SCH (08:15)
[2017-09-26] MEDS ORDERED: Insulin LISPRO 300 UNITS/3 ML VIAL SQ SCH ×3 (08:15→21:00)
[2017-09-26] MEDS: Gabapentin 400 MG CAPSULE PO SCH ×3 (08:18→21:30)
[2017-09-26] MEDS: Pantoprazole 40 MG VIAL IVP SCH ×2 (08:18→21:31)
[2017-09-26] MEDS: *HR* Heparin 5,000 UNIT/ML VIAL SQ SCH ×2 (08:19→15:34)
[2017-09-26] MEDS: Vancomycin 1,250 MG in D5% in Water 250 ML IVPB SCH (10:30)
[2017-09-26] MEDS: Piperacillin/Tazobactam 3.375 GM in D5% in Water (Mini-Bag+) 100 ML IVPB SCH ×2 (10:40→15:42)
[2017-09-26] MEDS: Insulin LISPRO 300 UNITS/3 ML VIAL SQ SCH ×2 (12:57→15:34)
[2017-09-26] MEDS ORDERED: Aminoglycoside Consult 1 EACH MC ONE (14:59)
[2017-09-26] MEDS: Insulin NPH/REG 70/30 100 UNIT/ML (x5UNIT) SQ SCH (15:42)
--- NOTE | 2017-09-26 17:14 | Electrocardiograph Report ---
[address] [place], [place] [address] Test Date: 2017-09-25 Pat Name: John Lemus Department: 102 Room: 2N15 Gender: M [employer]: : 1985 Requested By: Bud Rodriguez Order Number: [id number] Reading MD: Gaby Gamez Measurements Intervals [place] Rate: 114 P: 70 MT: 96 QRS: 81 QRSD: 93 T: 61 QT: 349 QTc: 417 Interpretive Statements SINUS TACHYCARDIA WITH SHORT MT INTERVAL ABNORMAL RHYTHM ECG Electronically Signed On 09-26-2017 17:12:32 EDT by Gaby Gamez
[2017-09-26] MEDS: *HR* HYDROmorphone (PF) 1 MG/ML SYRINGE IVP PRN (18:52)
[2017-09-26] MEDS ORDERED: Temazepam 15 MG CAPSULE PO PRN (21:41)
[2017-09-27] MEDS: Vancomycin 1,250 MG in D5% in Water 250 ML IVPB SCH ×2 (00:48→12:19)
[2017-09-27] MEDS: Piperacillin/Tazobactam 3.375 GM in D5% in Water (Mini-Bag+) 100 ML IVPB SCH ×2 (00:49→08:21)
[2017-09-27] MEDS: *HR* Heparin 5,000 UNIT/ML VIAL SQ SCH ×2 (00:49→08:20)
[2017-09-27 04:56] LABS: Basophils % 0.4 %; Eosinophils # 0.1 K/mcL (0.0-0.6); Eosinophils % 1.1 %; Hematocrit 33.6 % (37.5-50.1); Hemoglobin 11.4 g/dL (12.9-16.9); Immature Granulocytes % 0.2 % (0-4); Lymphocytes # 1.6 K/mcL (0.6-4.6); Mean Corpuscular HGB Conc 33.9 g/dL (31.6-35.5); Mean Corpuscular Hemoglobin 29.1 pg (28.0-33.3); Mean Corpuscular Volume 85.7 fL (83.0-100.0); Mean Platelet Volume 9.1 fL (9.4-12.4); Monocytes # 0.4 K/mcL (0.0-1.3); Monocytes % 7.3 %; Platelet Count 187 K/mcL (140-400); Red Blood Count 3.92 M/mcL (4.19-5.50)
[2017-09-27 04:57] LABS: Neutrophils # 3.2 K/mcL (1.6-8.9)
[2017-09-27 05:23] LABS: Alanine Aminotransferase 66 Units/L (0-55); Albumin 2.9 g/dL (3.5-5.0); Albumin/Globulin Ratio 1.2 (1.1-2.2); Alkaline Phosphatase 86 Units/L (38-126); Aspartate Amino Transferase 76 Units/L (5-34); BUN/Creatinine Ratio 10 (6-26); Bilirubin,Total 0.4 mg/dL (0.2-1.2); Blood Urea Nitrogen 8 mg/dL (8-26); Calcium 8.3 mg/dL (8.6-10.8); Carbon Dioxide 24 mEq/L (19-29); Chloride 104 mEq/L (98-109); Globulin 2.4 g/dL (2.4-3.5); Glucose 232 mg/dL (70-99); Osmolality,Calculated 286 (280-300); Potassium 3.7 mEq/L (3.5-4.5); Sodium 135 mEq/L (136-145); Total Protein 5.3 g/dL (6.0-8.3); eGFR For African Americans > 60 (> 60); eGFR For Non-African Americans > 60 (> 60)
--- NOTE | 2017-09-27 05:48 | Internal Med Progress Note ---
Date of Encounter: 09/26/17 Time of Encounter: 13:00 - Assessment and plan (1) DKA, type 1 Current Visit: Yes Status: Acute Assessment and plan: Continue treatment per protocol Transitioning to SQ insulin will use NPH 70/30 to avoid potential allergic reaction to levemir. Qualifiers: Diabetes mellitus complication detail: without coma Qualified Code(s): E10.10 - Type 1 diabetes mellitus with ketoacidosis without coma (2) Noncompliance with medications Current Visit: Yes Status: Chronic (3) IV drug abuse Current Visit: Yes Status: Chronic (4) Hepatitis C Current Visit: Yes Status: Chronic Qualifiers: Viral hepatitis chronicity: unspecified Hepatic coma status: without hepatic coma Qualified Code(s): B19.20 - Unspecified viral hepatitis C without hepatic coma - Subjective Interval history: No acute events overnight or in AM. Patient ready to transition to long acting insulin but allergic to lantus, unsure if he's allergic to levemir which is our formulary. He does take NPH 70/30 without issue. - Constitutional Vitals: Temp Pulse Resp BP Pulse Ox 98.2 F 75 18 108/67 93 09/27/17 04:34 09/27/17 04:34 09/27/17 04:34 09/27/17 04:34 09/27/17 04:34 General appearance: Present: mild distress, A&O X 3, answers questions appropriately Exam: CVS: RRR lungs: CTAB Abd: patient defers exam, exhibits no acute distress, appears soft, not rigid. Ext: no edema Internal Medicine: Result - Labs CBC & Chem 7: 09/27/17 04:21 09/27/17 04:21 Labs: Short CBC 09/27/17 Range/Units 04:21 WBC 5.3 D (4.3-11.1) K/mcL Hgb 11.4 L (12.9-16.9) g/dL Hct 33.6 L (37.5-50.1) % Plt Count 187 (140-400) K/mcL Neutrophils # 3.2 (1.6-8.9) K/mcL BMP 09/27/17 04:21 Sodium 135 L Potassium 3.7 Chloride 104 Carbon Dioxide 24 BUN 8 Creatinine 0.81 Glucose 232 H Calcium 8.3 L Liver Function 09/27/17 Range/Units 04:21 Total Bilirubin 0.4 (0.2-1.2) mg/dL AST 76 H (5-34) Units/L ALT 66 H (0-55) Units/L Alkaline Phosphatase 86 (38-126) Units/L Albumin 2.9 L (3.5-5.0) g/dL Consult Discharge Plan - Plan Referrals: Butch Holland [Primary Care Provider] - (SENT WEB REQUEST ON 09-26-17 @ [id number])
[2017-09-27] MEDS: Gabapentin 400 MG CAPSULE PO SCH (08:20)
[2017-09-27] MEDS: Insulin LISPRO 300 UNITS/3 ML VIAL SQ SCH ×2 (08:20→12:18)
[2017-09-27] MEDS: Pantoprazole 40 MG VIAL IVP SCH (08:21)
[2017-09-27] MEDS: Insulin NPH/REG 70/30 100 UNIT/ML (x5UNIT) SQ SCH (10:01)
[2017-09-27 11:32] VITALS: BP 124/86
--- NOTE | 2017-09-27 12:51 | Discharge Summary ---
Date of Encounter: 09/27/17 Time of Encounter: 12:46 - Discharge Diagnosis (1) DKA, type 1 Priority: Primary Status: Acute Qualifiers: Diabetes mellitus complication detail: without coma Qualified Code(s): E10.10 - Type 1 diabetes mellitus with ketoacidosis without coma (2) Noncompliance with medications Priority: Primary Status: Chronic (3) Sepsis Priority: Primary Status: Ruled-out Comments: ruled out..no source of infection Qualifiers: Sepsis type: sepsis due to unspecified organism Qualified Code(s): A41.9 - Sepsis, unspecified organism (4) Hepatitis C Priority: Secondary Status: Chronic Qualifiers: Viral hepatitis chronicity: unspecified Hepatic coma status: without hepatic coma Qualified Code(s): B19.20 - Unspecified viral hepatitis C without hepatic coma (5) History of seizures Priority: Secondary Status: Chronic - Discharge Medications Prescriptions: Insulin NPH Hum/Reg Insulin Hm [Novolin 70-30 100 Unit/ml Vial] 22 unit SQ QAM # 1 vial Home Medications: Gabapentin [Neurontin] 800 mg PO TID 09/25/17 [History] Insulin ASPART [Novolog Flexpen] 2 - 10 unit SQ TIDWM 09/25/17 [History] Insulin NPH Hum/Reg Insulin Hm [Novolin 70-30 100 Unit/ml Vial] 15 unit SQ HS [History] Phenytoin ER [Dilantin ER] 100 mg PO TID 09/25/17 [History] Insulin NPH Hum/Reg Insulin Hm [Novolin 70-30 100 Unit/ml Vial] 22 unit SQ QAM # 1 vial 09/27/17 [Rx] Allergies/Adverse Reactions: 3 Allergy/AdvReac Type Severity Reaction Status Date / Time diphenhydramine Allergy Intermediate See Verified 09/25/17 07:34 [From Benadryl] Comments insulin glargine Allergy Blister Verified 09/25/17 07:34 [From Lantus] Procedures/tests Complete & Pending: Procedures Performed prior 72 hours Category Date Time Status CT abd pelvis wo iv oral only [CT] Routine Cat Scan 09/25/17 13:15 Completed Date of admission: 09/25/17 10:45 Primary care physician: Butch Holland - Patient Status Disposition: Home, Self-Care Condition: Good Overall status at discharge: patient is back to baseline - Discharge Instructions Instructions: Diabetic Ketoacidosis (DC) Follow Up With: Lenin Ortega DO [Resident] - 10/03/17 10:00 am (Please make sure you show up for your appointment if not please call [phone] and cancel. Please take picture ID, Insurance cards, and All medications in the bottles. Show up 15mins early.) - Diet and Activity Activity: increase activity as tolerated Diet: diabetic diet Hospital course: Mr. Lemus is a 31 year old male with medical history of diabetes, hepatitis C, and seizures presented to the ED with chief complaint of nausea, vomiting, RLQ abdominal pain, and diarrhea. Pt. reports his diabetes is not controlled because he did not take insulin for a couple of days since he does not have current PCP and is homeless. Pt. states [facility]. States he has hx of IV drug abuse and used meth 4 days ago. Pts. BG is high at 421 at admission and found to be in DKA. Pt was admitted into step down unit and started him on aggressive IV hydration. He was started on insulin gtt which later got changed to ISS + NPH 70/30 BID. Now his BS are stable and well controlled. He did have mils sepsis / SIRS when he first presented to ER due to DKA, no clear source of infection. His blod cx NGTD, urine is completely benign. He does not need to be on any abx. Regarding his insulin collins, provided him rx and arranged for PCP follow up. Counseled and educated the pt about importance of taking Insulin regularly in type 1 DM pt. - Time Spent with Patient Total time spent providing and/or coordinating discharge services: - Constitutional Vitals: Temp Pulse Resp BP Pulse Ox 98.0 F 78 18 124/86 94 09/27/17 11:31 09/27/17 11:31 09/27/17 11:31 09/27/17 11:31 09/27/17 11:31 General appearance: Present: A&O X 3, answers questions appropriately - Head Head exam: Present: atraumatic, normal inspection - Respiratory Respiratory exam: Present: decreased breath sounds. Absent: rales, respiratory distress, rhonchi, wheezes - Cardiovascular Cardiovascular exam: Present: RRR, +S1, +S2. Absent: systolic murmur - GI/Abdominal GI/Abdominal exam: Present: normal bowel sounds, soft. Absent: rebound, rigid, tenderness - Extremities Exam Extremities exam: Absent: calf tenderness, pedal edema, tenderness - Back Exam Back exam: Absent: CVA tenderness (L), CVA tenderness (R) - Neurological Exam Neurological exam: Present: alert. Absent: oriented X3 - Psychiatric Psychiatric exam: Present: normal affect, normal mood - VTE Documentation of Mechanical Device: Graduated compression elastic hosiery
[2017-09-27] MEDS ORDERED: Piperacillin/Tazobactam 3.375 GM in D5% in Water (Mini-Bag+) 100 ML IVPB SCH (16:00)
== END 2017-09-27 15:00 | disposition home or self-care (01) | DRG 420 ==
LOC: EMEROO 07:00 → 2NNU 07:00 → SUATTDRO 10:45 → 2NNU 10:57
PROVIDERS: ADMIT Nurse Practitioner Family; ATTEND Family Medicine

== ENCOUNTER 2017-10-24 16:56 | Inpatient (IN) ==
--- NOTE | 2017-10-24 18:45 | Emergency Department Note ---
Disposition Clinical Impression: Suicidal ideation Upper respiratory infection Qualifiers: URI type: unspecified viral URI Qualified Code(s): J06.9 - Acute upper respiratory infection, unspecified Disposition: Admitted As Inpatient Condition: Fair Referrals: Butch Holland [Primary Care Provider] - Forms: ED Satisfaction Letter Time of Disposition: 22:07 Psych HPI - General Chief Complaint: ED Upper Respiratory Infection Stated Complaint: SI/Cold/Flu like symptoms Time Seen by Provider: 10/24/17 16:57 Source: patient Mode of arrival: ambulatory Limitations: no limitations Nursing Notes Reviewed: Yes Vital Signs Reviewed: Yes - History of Present Illness HPI Narrative: 32yom hx of schizoaffective hepatitis C, diabetes, presents complaining of fever muscle aches myalgias, and states that he also has thoughts of harming himself. Patient states he has no reason to live. He has been on Seroquel but has been noncompliant and underdosed for last few weeks. He states that he is also having hallucinations intermittently. Patient states that he has active suicidal ideation but denies homicidal ideation. Patient denies chest pain, he has had some shortness of breath and productive cough. He thinks he might also have the flu. Pt complaint: suicidal ideation Duration: constant History of similar episodes: Yes - Related Data Home Medications Medication Instructions Recorded Confirmed Insulin NPH Hum/Reg Insulin Hm 15 unit SQ HS 09/25/17 10/24/17 [Novolin 70-30 100 Unit/ml Vial] Phenytoin ER [Dilantin ER] 100 mg PO TID 09/25/17 10/24/17 Gabapentin [Neurontin] 800 mg PO TID 10/24/17 10/24/17 Insulin Human Regular [HumuLIN R] 0 unit SQ DAILY 10/24/17 10/24/17 Quetiapine Fumarate [Seroquel] 300 mg PO HS 10/24/17 10/24/17 Previous Rx's Medication Instructions Recorded Insulin NPH Hum/Reg Insulin Hm 22 unit SQ QAM #1 vial 09/27/17 [Novolin 70-30 100 Unit/ml Vial] Allergies Allergy/AdvReac Type Severity Reaction Status Date / Time diphenhydramine Allergy Intermediate See Verified 10/24/17 22:01 [From Benadryl] Comments insulin glargine Allergy Blister Verified 11/27/17 22:01 [From Lantus] All systems ED: reviewed and negative except as stated. Review of Systems: As Per HPI Constitutional: Reports: as per HPI, fever Eyes: Denies: eye pain ENT ED: Denies: ear pain, congestion Cardiovascular: Denies: chest pain Respiratory: Reports: as per HPI, cough. Denies: dyspnea Gastrointestinal: Denies: abdominal pain Genitourinary: Denies: urgency, dysuria Musculoskeletal: Denies: back pain Integumentary: Denies: rash, abrasion Neurological: Denies: headache Psychiatric: Reports: as per HPI, suicidal thoughts, auditory hallucinations. Denies: anxiety, homicidal thoughts Endocrine: Denies: fatigue Past Medical History - Past Medical History Attestation: Yes The following information was validated with the patient. Source: patient Medical history: Reports: diabetes, hepatitis, seizures Psychiatric history: Reports: no psych history - Social History Smoking Status: Current every day smoker Smokeless Tobacco Status: No Alcohol use: Reports: none Drug use: Reports: methamphetamine, IV Drug Use Physical Exam Constitutional: NAD, vital signs reviewed and wnl Eyes: PERRLA, sclera anicteric ENT & Mouth: MM dry Neck: normal inspection, neck is supple Resp: CTA bilaterally, no resp distress CV: RRR, no m/g/r GI: normal inspection, soft, no guarding or rigidity Neuro: A&O3, CNII-XII grossly intact, VILLALBA Psych: Positive suicidal ideation. Skin: on limited exam, skin with multiple excoriations and lesions on extremities and torso - General Limitations: no limitations General appearance: alert, in no apparent distress Course Course Narrative: 32-year-old male history of schizoaffective, suicidal ideation currently concern for possible we will get a chest x-ray, basic lab work was swabbed medical clearance after this workup and line for psychiatric evaluation - Reevaluation(s) Reevaluation #1: Patient is been medically cleared will be evaluated by psychiatry at this time, patient seemed dynamically stable no findings on his chest x-ray, trace ketones in his urine with history of diabetes as is expected. Otherwise patient is admitted dynamically stable and appropriate for psychiatric evaluation Reevaluation #2: Awaiting 1A for disposition medically cleared see Dr Buck stratton for dispositon. Reevaluation #3: Discussed the case with the psychiatric evaluation nurse who discussed it with the admitting psychiatric attending but they feel the patient merits and requires admission and the psychiatric unit. Purple Sage slip has been accomplished admission orders have been placed. Patient to be admitted for suicidal ideation /depression in stable condition Time: 22:07 Vital Signs Temperature 98.3 F 10/24/17 18:25 Pulse Rate 108 10/24/17 18:25 Respiratory Rate 16 10/24/17 18:25 Blood Pressure 136/81 10/24/17 18:25 O2 Sat by Pulse Oximetry 98 10/24/17 18:25 Temperature 98.3 F 10/24/17 18:25 Pulse Rate 108 10/24/17 18:25 Respiratory Rate 16 10/24/17 18:25 Blood Pressure 136/81 10/24/17 18:25 O2 Sat by Pulse Oximetry 98 10/24/17 18:25 Oxygen Delivery Oxygen Delivery Room Air Psych - Lab Data Result diagrams: 10/24/17 19:01 10/24/17 19:01 Lab Results 10/24/17 10/24/17 10/24/17 Range/Units 18:53 18:53 19:01 WBC 7.9 (4.3-11.1) K/mcL RBC 4.48 (4.19-5.50) M/mcL Hgb 12.9 (12.9-16.9) g/dL Hct 38.8 (37.5-50.1) % MCV 86.6 (83.0-100.0) fL MCH 28.8 (28.0-33.3) pg MCHC 33.2 (31.6-35.5) g/dL RDW 14.0 (11.5-14.5) % Plt Count 250 (140-400) K/mcL MPV 9.9 (9.4-12.4) fL Immature Gran % 0.5 (0-4) % Seg Neutrophils % 59.9 % Lymphocytes % 29.0 % Monocytes % 8.1 % Eosinophils % 1.9 % Basophils % 0.6 % Neutrophils # 4.7 (1.6-8.9) K/mcL Lymphocytes # 2.3 (0.6-4.6) K/mcL Monocytes # 0.6 (0.0-1.3) K/mcL Eosinophils # 0.2 (0.0-0.6) K/mcL Basophils # 0.1 (0.0-0.2) K/mcL Sodium (136-145) mEq/L Potassium (3.5-4.5) mEq/L Chloride (98-109) mEq/L Carbon Dioxide (19-29) mEq/L BUN (8-26) mg/dL Creatinine (0.72-1.25) mg/dL Est GFR ( Amer) (> 60) Est GFR (Non-Af Amer) (> 60) BUN/Creatinine Ratio (6-26) Glucose (70-99) mg/dL Calculated Osmolality (280-300) Calcium (8.6-10.8) mg/dL Urine Color Yellow (Yellow) Urine Clarity Clear (Clear) Urine pH 6.0 (5.0-8.0) pH Units Ur Specific [place] 1.014 (1.010-1.025) Urine Protein Negative (Neg-Trace) mg/dL Urine Glucose (UA) 250 H (Normal) mg/dL Urine Ketones 15 H (Negative) mg/dL Urine Blood Negative (Negative) Urine Nitrite Negative (Negative) Urine Bilirubin Negative (Negative) Urine Urobilinogen Normal (Normal) mg/dL Ur Leukocyte Esterase Negative (Negative) Salicylates (15-30) mg/dL Urine Opiates Screen Negative (Ukqqcm=409) ng/mL Acetaminophen (10-30) mcg/mL Ur Barbiturates Screen Negative (Njorsl=442) ng/mL Ur Phencyclidine Scrn Negative (Cutoff=25) ng/mL Ur Amphetamines Screen Positive H (Ggaftc=2284) ng/mL U Benzodiazepines Scrn Negative (Ystfxu=342) ng/mL Urine Cocaine Screen Negative (Cutoff= 300) ng/mL U Marijuana (THC) Screen Positive H (Cutoff = 50) ng/mL Ethyl Alcohol (0-10) mg/dL 10/24/17 Range/Units 19:01 WBC (4.3-11.1) K/mcL RBC (4.19-5.50) M/mcL Hgb (12.9-16.9) g/dL Hct (37.5-50.1) % MCV (83.0-100.0) fL MCH (28.0-33.3) pg MCHC (31.6-35.5) g/dL RDW (11.5-14.5) % Plt Count (140-400) K/mcL MPV (9.4-12.4) fL Immature Gran % (0-4) % Seg Neutrophils % % Lymphocytes % % Monocytes % % Eosinophils % % Basophils % % Neutrophils # (1.6-8.9) K/mcL Lymphocytes # (0.6-4.6) K/mcL Monocytes # (0.0-1.3) K/mcL Eosinophils # (0.0-0.6) K/mcL Basophils # (0.0-0.2) K/mcL Sodium 133 L (136-145) mEq/L Potassium 4.1 (3.5-4.5) mEq/L Chloride 97 L (98-109) mEq/L Carbon Dioxide 24 (19-29) mEq/L BUN 11 (8-26) mg/dL Creatinine 0.94 (0.72-1.25) mg/dL Est GFR ( Amer) > 60 (> 60) Est GFR (Non-Af Amer) > 60 (> 60) BUN/Creatinine Ratio 12 (6-26) Glucose 290 H (70-99) mg/dL Calculated Osmolality 286 (280-300) Calcium 9.7 (8.6-10.8) mg/dL Urine Color (Yellow) Urine Clarity (Clear) Urine pH (5.0-8.0) pH Units Ur Specific [place] (1.010-1.025) Urine Protein (Neg-Trace) mg/dL Urine Glucose (UA) (Normal) mg/dL Urine Ketones (Negative) mg/dL Urine Blood (Negative) Urine Nitrite (Negative) Urine Bilirubin (Negative) Urine Urobilinogen (Normal) mg/dL Ur Leukocyte Esterase (Negative) Salicylates < 5.0 L (15-30) mg/dL Urine Opiates Screen (Gczabt=057) ng/mL Acetaminophen < 1.0 L (10-30) mcg/mL Ur Barbiturates Screen (Fjslqg=761) ng/mL Ur Phencyclidine Scrn (Cutoff=25) ng/mL Ur Amphetamines Screen (Mvvxfh=9123) ng/mL U Benzodiazepines Scrn (Rsqljv=289) ng/mL Urine Cocaine Screen (Cutoff= 300) ng/mL U Marijuana (THC) Screen (Cutoff = 50) ng/mL Ethyl Alcohol < 10 (0-10) mg/dL Psychiatric Medical Clearance - Medical Clearance Checklist Does the patient have a NEW psychiatric condition?: No Any abnormalities indicating possible medical illness?: No Any history of medical issues?: Yes Medical History: Dehydration (Acute) DKA, type 1 (Acute) Noncompliance with medications (Chronic) IV drug abuse (Chronic) Metabolic acidosis (Acute) Sepsis (Ruled-out) Nausea & vomiting (Acute) Hepatitis C (Chronic) History of seizures (Chronic) DVT prophylaxis (Acute) Suicidal ideation (Acute) Upper respiratory infection (Acute) No Social History Section defined Any abnormal vital signs prior to transfer?: No Current Vitals: Last Vital Signs Temp 98.3 F 10/24/17 18:25 Pulse 108 10/24/17 18:25 Resp 16 10/24/17 18:25 BP 136/81 10/24/17 18:25 Pulse Ox 98 10/24/17 18:25 Is the patient intoxicated or cognitively impaired?: No Psychiatric Lab Panel: Drug Levels and Toxicity 10/24/17 10/24/17 18:53 19:01 Urine Opiates Screen Negative Acetaminophen < 1.0 L Ur Barbiturates Screen Negative Ur Phencyclidine Scrn Negative Ur Amphetamines Screen Positive H U Benzodiazepines Scrn Negative Urine Cocaine Screen Negative U Marijuana (THC) Screen Positive H Ethyl Alcohol < 10 Any abnormalities on the physical exam?: Yes Any abnormal labs?: Yes Abnormal Labs: Abnormal lab results Sodium 133 mEq/L (136-145) L 10/24/17 19:01 Chloride 97 mEq/L (98-109) L 10/24/17 19:01 Glucose 290 mg/dL (70-99) H 10/24/17 19:01 Urine Glucose (UA) 250 mg/dL (Normal) H 10/24/17 18:53 Urine Ketones 15 mg/dL (Negative) H 10/24/17 18:53 Salicylates < 5.0 mg/dL (15-30) L 10/24/17 19:01 Acetaminophen < 1.0 mcg/mL (10-30) L 10/24/17 19:01 Ur Amphetamines Screen Positive ng/mL (Zomger=3121) H 10/24/17 18:53 U Marijuana (THC) Screen Positive ng/mL (Cutoff = 50) H 10/24/17 18:53 Does the patient require durable medical equiptment?: No Is the patient ambulatory?: Yes Is the patient a fall risk?: No Has the patient been medically cleared?: Yes Any acute medical condition require Tx prior to transfer?: No
--- NOTE | 2017-10-24 18:54 | Emergency Department Note ---
START Narrative - START START: I examined this patient and my medical decision-making was reviewed with the Resident Physician. I agree with the documented findings, disposition and treatment plan as described except to the extent set forth below. ED attending note: Patient seen with emergency medicine resident Dr. River. We independently evaluated the patient and had [id number] contact with the patient. Please see a copy of his note for details of the history and physical, evaluation, management and disposition of this emergency Department patient. Briefly: A 32-year-old male with schizoaffective disorder meth amphetamine abuser and depression presents with suicidal ideation. Physical examination is otherwise benign. He has had URI flulike symptoms for several days. Chest x- ray flu swab medical clearance screening labs. Disposition pending. Patient will then when medically cleared get a mental health evaluation for further management and disposition.
[2017-10-24 18:58] LABS: Bilirubin,Urine Negative (Negative); Blood,Urine Negative (Negative); Clarity,Urine Clear (Clear); Color,Urine Yellow (Yellow); Glucose,Urine (UA) 250 mg/dL (Normal); Ketones,Urine 15 mg/dL (Negative); Leukocyte Esterase,Urine Negative (Negative); Nitrite,Urine Negative (Negative); Protein,Urine Negative (Neg-Trace); Specific Gravity,Urine 1.014 (1.010-1.025); Urobilinogen,Urine Normal (Normal)
[2017-10-24 19:04] LABS: Amphetamine Screen,Urine Positive ng/mL (Cutoff=1000); Barbiturate Screen,Urine Negative ng/mL (Cutoff=200); Benzodiazepines Screen,Urine Negative ng/mL (Cutoff=200); Cannabinoid Screen,Urine Positive ng/mL (Cutoff = 50); Cocaine Screen,Urine Negative ng/mL (Cutoff= 300); Opiate Screen,Urine Negative ng/mL (Cutoff=300); Phencyclidine Screen,Urine Negative ng/mL (Cutoff=25)
[2017-10-24 19:28] LABS: Basophils # 0.1 K/mcL (0.0-0.2); Basophils % 0.6 %; Eosinophils # 0.2 K/mcL (0.0-0.6); Eosinophils % 1.9 %; Hematocrit 38.8 % (37.5-50.1); Hemoglobin 12.9 g/dL (12.9-16.9); Immature Granulocytes % 0.5 % (0-4); Lymphocytes # 2.3 K/mcL (0.6-4.6); Mean Corpuscular HGB Conc 33.2 g/dL (31.6-35.5); Mean Corpuscular Hemoglobin 28.8 pg (28.0-33.3); Mean Corpuscular Volume 86.6 fL (83.0-100.0); Mean Platelet Volume 9.9 fL (9.4-12.4); Monocytes # 0.6 K/mcL (0.0-1.3); Monocytes % 8.1 %; Neutrophils # 4.7 K/mcL (1.6-8.9); Platelet Count 250 K/mcL (140-400); Red Blood Count 4.48 M/mcL (4.19-5.50); Segmented Neutrophils % 59.9 %
[2017-10-24 19:44] LABS: BUN/Creatinine Ratio 12 (6-26); Blood Urea Nitrogen 11 mg/dL (8-26); Calcium 9.7 mg/dL (8.6-10.8); Carbon Dioxide 24 mEq/L (19-29); Chloride 97 mEq/L (98-109); Glucose 290 mg/dL (70-99); Osmolality,Calculated 286 (280-300); Potassium 4.1 mEq/L (3.5-4.5); Sodium 133 mEq/L (136-145); eGFR For African Americans > 60 (> 60); eGFR For Non-African Americans > 60 (> 60)
[2017-10-24 19:57] LABS: Acetaminophen < 1.0 mcg/mL (10-30); Ethanol < 10 mg/dL (0-10); Salicylate < 5.0 mg/dL (15-30)
[2017-10-24] MEDS ORDERED: *HR* LORazepam 1 MG TABLET PO ONE (21:27)
--- NOTE | 2017-10-25 06:07 | Emergency Department Note ---
START Narrative - START START: No events overnight patient was sleeping. 1 A evaluating.
--- NOTE | 2017-10-25 09:46 | Emergency Department Note ---
Disposition Clinical Impression: Suicidal ideation Upper respiratory infection Qualifiers: URI type: unspecified viral URI Qualified Code(s): J06.9 - Acute upper respiratory infection, unspecified Disposition: Admitted As Inpatient Condition: Fair Psych HPI - General Chief Complaint: ED Upper Respiratory Infection Stated Complaint: SI/Cold/Flu like symptoms Time Seen by Provider: 10/24/17 16:57 Source: patient Mode of arrival: ambulatory - History of Present Illness Duration: constant - Related Data Home Medications Medication Instructions Recorded Confirmed Insulin NPH Hum/Reg Insulin Hm 15 unit SQ HS 09/25/17 10/24/17 [Novolin 70-30 100 Unit/ml Vial] Phenytoin ER [Dilantin ER] 100 mg PO TID 09/25/17 10/24/17 Gabapentin [Neurontin] 800 mg PO TID 10/24/17 10/24/17 Insulin Human Regular [HumuLIN R] 0 unit SQ DAILY 10/24/17 10/24/17 Quetiapine Fumarate [Seroquel] 300 mg PO HS 10/24/17 10/24/17 Previous Rx's Medication Instructions Recorded Insulin NPH Hum/Reg Insulin Hm 22 unit SQ QAM #1 vial 09/27/17 [Novolin 70-30 100 Unit/ml Vial] Allergies Allergy/AdvReac Type Severity Reaction Status Date / Time diphenhydramine Allergy Intermediate See Verified 10/24/17 22:01 [From Benadryl] Comments insulin glargine Allergy Blister Verified 10/24/17 22:01 [From Lantus] Constitutional: Reports: as per HPI, fever Eyes: Denies: eye pain ENT ED: Denies: ear pain, congestion Cardiovascular: Denies: chest pain Respiratory: Reports: as per HPI, cough. Denies: dyspnea Gastrointestinal: Denies: abdominal pain Genitourinary: Denies: urgency, dysuria Musculoskeletal: Denies: back pain Integumentary: Denies: rash, abrasion Neurological: Denies: headache Psychiatric: Reports: as per HPI, suicidal thoughts, auditory hallucinations. Denies: anxiety, homicidal thoughts Endocrine: Denies: fatigue Past Medical History - Past Medical History Medical history: Reports: diabetes, hepatitis, seizures Psychiatric history: Reports: no psych history - Social History Smoking Status: Current every day smoker Smokeless Tobacco Status: No Alcohol use: Reports: none Drug use: Reports: methamphetamine, IV Drug Use Physical Exam - General Limitations: no limitations General appearance: alert, in no apparent distress Course Vital Signs Temperature 98.3 F 10/24/17 18:25 Pulse Rate 108 10/24/17 18:25 Respiratory Rate 16 10/24/17 18:25 Blood Pressure 136/81 10/24/17 18:25 O2 Sat by Pulse Oximetry 98 10/24/17 18:25 Temperature 98.3 F 10/24/17 18:25 Pulse Rate 76 10/25/17 06:00 Respiratory Rate 16 10/25/17 06:00 Blood Pressure 130/74 10/25/17 06:00 O2 Sat by Pulse Oximetry 99 10/25/17 06:00 Oxygen Delivery Oxygen Delivery Room Air Psych - Lab Data Result diagrams: 10/24/17 19:01 10/24/17 19:01 Lab Results 10/24/17 10/24/17 10/24/17 Range/Units 18:53 18:53 19:01 WBC 7.9 (4.3-11.1) K/mcL RBC 4.48 (4.19-5.50) M/mcL Hgb 12.9 (12.9-16.9) g/dL Hct 38.8 (37.5-50.1) % MCV 86.6 (83.0-100.0) fL MCH 28.8 (28.0-33.3) pg MCHC 33.2 (31.6-35.5) g/dL RDW 14.0 (11.5-14.5) % Plt Count 250 (140-400) K/mcL MPV 9.9 (9.4-12.4) fL Immature Gran % 0.5 (0-4) % Seg Neutrophils % 59.9 % Lymphocytes % 29.0 % Monocytes % 8.1 % Eosinophils % 1.9 % Basophils % 0.6 % Neutrophils # 4.7 (1.6-8.9) K/mcL Lymphocytes # 2.3 (0.6-4.6) K/mcL Monocytes # 0.6 (0.0-1.3) K/mcL Eosinophils # 0.2 (0.0-0.6) K/mcL Basophils # 0.1 (0.0-0.2) K/mcL Sodium (136-145) mEq/L Potassium (3.5-4.5) mEq/L Chloride (98-109) mEq/L Carbon Dioxide (19-29) mEq/L BUN (8-26) mg/dL Creatinine (0.72-1.25) mg/dL Est GFR ( Amer) (> 60) Est GFR (Non-Af Amer) (> 60) BUN/Creatinine Ratio (6-26) Glucose (70-99) mg/dL Calculated Osmolality (280-300) Calcium (8.6-10.8) mg/dL Urine Color Yellow (Yellow) Urine Clarity Clear (Clear) Urine pH 6.0 (5.0-8.0) pH Units Ur Specific [place] 1.014 (1.010-1.025) Urine Protein Negative (Neg-Trace) mg/dL Urine Glucose (UA) 250 H (Normal) mg/dL Urine Ketones 15 H (Negative) mg/dL Urine Blood Negative (Negative) Urine Nitrite Negative (Negative) Urine Bilirubin Negative (Negative) Urine Urobilinogen Normal (Normal) mg/dL Ur Leukocyte Esterase Negative (Negative) Salicylates (15-30) mg/dL Urine Opiates Screen Negative (Yxdidh=431) ng/mL Acetaminophen (10-30) mcg/mL Ur Barbiturates Screen Negative (Dbgtcb=695) ng/mL Ur Phencyclidine Scrn Negative (Cutoff=25) ng/mL Ur Amphetamines Screen Positive H (Bzpgnh=4991) ng/mL U Benzodiazepines Scrn Negative (Jdlaxc=488) ng/mL Urine Cocaine Screen Negative (Cutoff= 300) ng/mL U Marijuana (THC) Screen Positive H (Cutoff = 50) ng/mL Ethyl Alcohol (0-10) mg/dL 10/24/17 Range/Units 19:01 WBC (4.3-11.1) K/mcL RBC (4.19-5.50) M/mcL Hgb (12.9-16.9) g/dL Hct (37.5-50.1) % MCV (83.0-100.0) fL MCH (28.0-33.3) pg MCHC (31.6-35.5) g/dL RDW (11.5-14.5) % Plt Count (140-400) K/mcL MPV (9.4-12.4) fL Immature Gran % (0-4) % Seg Neutrophils % % Lymphocytes % % Monocytes % % Eosinophils % % Basophils % % Neutrophils # (1.6-8.9) K/mcL Lymphocytes # (0.6-4.6) K/mcL Monocytes # (0.0-1.3) K/mcL Eosinophils # (0.0-0.6) K/mcL Basophils # (0.0-0.2) K/mcL Sodium 133 L (136-145) mEq/L Potassium 4.1 (3.5-4.5) mEq/L Chloride 97 L (98-109) mEq/L Carbon Dioxide 24 (19-29) mEq/L BUN 11 (8-26) mg/dL Creatinine 0.94 (0.72-1.25) mg/dL Est GFR ( Amer) > 60 (> 60) Est GFR (Non-Af Amer) > 60 (> 60) BUN/Creatinine Ratio 12 (6-26) Glucose 290 H (70-99) mg/dL Calculated Osmolality 286 (280-300) Calcium 9.7 (8.6-10.8) mg/dL Urine Color (Yellow) Urine Clarity (Clear) Urine pH (5.0-8.0) pH Units Ur Specific [place] (1.010-1.025) Urine Protein (Neg-Trace) mg/dL Urine Glucose (UA) (Normal) mg/dL Urine Ketones (Negative) mg/dL Urine Blood (Negative) Urine Nitrite (Negative) Urine Bilirubin (Negative) Urine Urobilinogen (Normal) mg/dL Ur Leukocyte Esterase (Negative) Salicylates < 5.0 L (15-30) mg/dL Urine Opiates Screen (Osavss=157) ng/mL Acetaminophen < 1.0 L (10-30) mcg/mL Ur Barbiturates Screen (Aggdxc=034) ng/mL Ur Phencyclidine Scrn (Cutoff=25) ng/mL Ur Amphetamines Screen (Rubyjm=2122) ng/mL U Benzodiazepines Scrn (Iirqup=997) ng/mL Urine Cocaine Screen (Cutoff= 300) ng/mL U Marijuana (THC) Screen (Cutoff = 50) ng/mL Ethyl Alcohol < 10 (0-10) mg/dL Psychiatric Medical Clearance - Medical Clearance Checklist Medical History: Dehydration (Acute) DKA, type 1 (Acute) Noncompliance with medications (Chronic) IV drug abuse (Chronic) Metabolic acidosis (Acute) Sepsis (Ruled-out) Nausea & vomiting (Acute) Hepatitis C (Chronic) History of seizures (Chronic) DVT prophylaxis (Acute) Suicidal ideation (Acute) Upper respiratory infection (Acute) No Social History Section defined Current Vitals: Last Vital Signs Temp 98.3 F 10/24/17 18:25 Pulse 76 10/25/17 06:00 Resp 16 10/25/17 06:00 BP 130/74 10/25/17 06:00 Pulse Ox 99 10/25/17 06:00 Psychiatric Lab Panel: Drug Levels and Toxicity 10/24/17 10/24/17 18:53 19:01 Urine Opiates Screen Negative Acetaminophen < 1.0 L Ur Barbiturates Screen Negative Ur Phencyclidine Scrn Negative Ur Amphetamines Screen Positive H U Benzodiazepines Scrn Negative Urine Cocaine Screen Negative U Marijuana (THC) Screen Positive H Ethyl Alcohol < 10 Abnormal Labs: Abnormal lab results Sodium 133 mEq/L (136-145) L 10/24/17 19:01 Chloride 97 mEq/L (98-109) L 10/24/17 19:01 Glucose 290 mg/dL (70-99) H 10/24/17 19:01 Urine Glucose (UA) 250 mg/dL (Normal) H 10/24/17 18:53 Urine Ketones 15 mg/dL (Negative) H 10/24/17 18:53 Salicylates < 5.0 mg/dL (15-30) L 10/24/17 19:01 Acetaminophen < 1.0 mcg/mL (10-30) L 10/24/17 19:01 Ur Amphetamines Screen Positive ng/mL (Dfezuh=3184) H 10/24/17 18:53 U Marijuana (THC) Screen Positive ng/mL (Cutoff = 50) H 10/24/17 18:53 Statement of Medical Clearance: I have evaluated the patient, reviewed diagnostic information, and certify that the patient's medical condition is sufficiently stable that transfer to the psychiatric unit does not pose a significant risk of deterioration. Attestation Statement - Attestation Attestation: I, Butch Cedeño, examined this patient and my medical decision-making was reviewed with the COMMUNITY DIETITIAN/PA/Advanced Practice Nurse/Resident Physician. I agree with the documented findings, disposition and treatment plan as described except to the extent set forth below. 32-year-old male received in sign out at start of shift pending placement by [facility] for suicidal ideation. Patient accepted to 1A and feels comfortable with the plan for admission to hospital. No further concerns or complaints
[2017-10-25] MEDS: Insulin LISPRO 300 UNITS/3 ML VIAL SQ SCH ×3 (11:54→20:46)
[2017-10-25] MEDS ORDERED: MOM Conc 10 ML UD.LIQ PO PRN (12:56)
[2017-10-25] MEDS ORDERED: traZODone 50 MG TABLET PO PRN (12:56)
[2017-10-25] MEDS ORDERED: *HR* LORazepam 1 MG TABLET PO PRN (12:56)
[2017-10-25] MEDS ORDERED: Mag Hydrox/Al Hydrox/Simeth 30 ML UDC PO PRN (12:56)
[2017-10-25] MEDS ORDERED: Haloperidol Lactate 5 MG/ML VIAL IM PRN (12:56)
[2017-10-25] MEDS ORDERED: Ibuprofen 400 MG TABLET PO PRN (12:56)
[2017-10-25] MEDS ORDERED: *HR* LORazepam 2 MG/ML VIAL IM PRN (12:56)
--- NOTE | 2017-10-25 15:06 | Psychiatry History & Physical ---
Date of Encounter: 10/25/17 Time of Encounter: 15:04 History of Present Illness Patient Stated Chief Complaint: Suicidal ideation Medicare Admission Attestation: For traditional Medicare patients the provided hospital inpatient services are reasonable and necessary and in the case of services not specified as inpatient -only under 42 CFR 419.22 (n), that they are appropriately provided as inpatient services in accordance 42 CFR 412.3. For Critical Access Hospital the patient may reasonably be expected to be discharged or transferred to a hospital within 96 hours after admission to the Critical Access Hospital. Admitted From: Emergency Dept History of Present Illness: Mr. Lemus is a 32 year old male admitted from the emergency department for suicidal ideation. Patient is angry, uncooperative and irritable and agitated and did not cooperate with evaluation. Past Med Surg Social Fam HX - Past Medical History Medical history: diabetes, hepatitis, seizures - Past Psychiatric History Psychiatric history: Reports: other (Unknown) - Social History Smoking Status: Current some day smoker Smokeless Tobacco Status: No Alcohol use: none Drug use: methamphetamine, IV Drug Use - Family History Father Family Member Ethnicity: Non- Living Status: Hx Family Cardiac Disorders: Yes ([place]) Hx Family Endocrine Disorder: Yes (DM) Mother Family Member Ethnicity: Non- Living Status: Still Living Sister Family Member Ethnicity: Non- Living Status: Still Living Medications & Allergies Insulin NPH Hum/Reg Insulin Hm [Novolin 70-30 100 Unit/ml Vial] 15 unit SQ HS [History] Phenytoin ER [Dilantin ER] 100 mg PO TID 09/25/17 [History] Insulin NPH Hum/Reg Insulin Hm [Novolin 70-30 100 Unit/ml Vial] 22 unit SQ QAM # 1 vial 09/27/17 [Rx] Gabapentin [Neurontin] 800 mg PO TID 10/24/17 [History] Insulin Human Regular [HumuLIN R] 0 unit SQ DAILY 10/24/17 [History] Quetiapine Fumarate [Seroquel] 300 mg PO HS 10/24/17 [History] 3 Allergy/AdvReac Type Severity Reaction Status Date / Time diphenhydramine Allergy Intermediate See Verified 10/24/17 22:01 [From Benadryl] Comments insulin glargine Allergy Blister Verified 10/24/17 22:01 [From Lantus] Review of Systems Psychiatric: Reports: suicidal ideation, irritability Mental Status Exam Patient orientation: Yes Person, Yes Time, Yes Place Level of alertness: Alert Patient appearance: Appropriate, Unkempt, Disheveled, Inappropriate, Thin Behavior: calm, hostile, uncooperative, suspicious Psychomotor activity: Increased Eye contact: Intense Contact Mood description: Angry, Labile, Irritable Affect description: congruent with mood, labile, dysphoric, inappropriate to situation Speech pattern: Normal rate, Normal rhythm, Normal tone, Includes Profanity Speech volume: Loud Thought process: Linear, Goal Oriented, Tangential, Evasive Thought content: Yes Suicidal ideation, No Homicidal ideation, No Overt delusions Perceptual disturbances: No Auditory hallucinations, No Visual hallucinations Attention span: Capable of Focused Attention Memory description: Grossly Intact Patient reliability: Reliable Historian Intelligence estimate: Average Judgment: Limited Insight: Partial Results - Vital Signs Vital signs: Temp Pulse Resp BP Pulse Ox 98.3 F 76 16 130/74 99 10/24/17 18:25 10/25/17 06:00 10/25/17 06:00 10/25/17 06:00 10/25/17 06:00 - Labs Labs: Laboratory Last Values WBC 7.9 K/mcL (4.3-11.1) 10/24/17 19:01 RBC 4.48 M/mcL (4.19-5.50) 10/24/17 19:01 Hgb 12.9 g/dL (12.9-16.9) 10/24/17 19:01 Hct 38.8 % (37.5-50.1) 10/24/17 19:01 MCV 86.6 fL (83.0-100.0) 10/24/17 19:01 MCH 28.8 pg (28.0-33.3) 10/24/17 19:01 MCHC 33.2 g/dL (31.6-35.5) 10/24/17 19:01 RDW 14.0 % (11.5-14.5) 10/24/17 19:01 Plt Count 250 K/mcL (140-400) 10/24/17 19:01 MPV 9.9 fL (9.4-12.4) 10/24/17 19:01 Immature Gran % 0.5 % (0-4) 10/24/17 19:01 Seg Neutrophils % 59.9 % 10/24/17 19:01 Lymphocytes % 29.0 % 10/24/17 19:01 Monocytes % 8.1 % 10/24/17 19:01 Eosinophils % 1.9 % 10/24/17 19: Basophils % 0.6 % 10/24/17 19:01 Neutrophils # 4.7 K/mcL (1.6-8.9) 10/24/17 19:01 Lymphocytes # 2.3 K/mcL (0.6-4.6) 10/24/17 19:01 Monocytes # 0.6 K/mcL (0.0-1.3) 10/24/17 19:01 Eosinophils # 0.2 K/mcL (0.0-0.6) 10/24/17 19:01 Basophils # 0.1 K/mcL (0.0-0.2) 10/24/17 19:01 Sodium 133 mEq/L (136-145) L 10/24/17 19:01 Potassium 4.1 mEq/L (3.5-4.5) 10/24/17 19:01 Chloride 97 mEq/L (98-109) L 10/24/17 19:01 Carbon Dioxide 24 mEq/L (19-29) 10/24/17 19:01 BUN 11 mg/dL (8-26) 10/24/17 19:01 Creatinine 0.94 mg/dL (0.72-1.25) 10/24/17 19:01 Est GFR ( Amer) > 60 (> 60) 10/24/17 19:01 Est GFR (Non-Af Amer) > 60 (> 60) 10/24/17 19:01 BUN/Creatinine Ratio 12 (6-26) 10/24/17 19:01 Glucose 290 mg/dL (70-99) H 10/24/17 19:01 POC Glucose 523 (58-89) H* 10/25/17 10:46 Calculated Osmolality 286 (280-300) 10/24/17 19:01 Calcium 9.7 mg/dL (8.6-10.8) 10/24/17 19:01 Urine Color Yellow (Yellow) 10/24/17 18:53 Urine Clarity Clear (Clear) 10/24/17 18:53 Urine pH 6.0 pH Units (5.0-8.0) 10/24/17 18:53 Ur Specific [place] 1.014 (1.010-1.025) 10/24/17 18:53 Urine Protein Negative mg/dL (Neg-Trace) 10/24/17 18:53 Urine Glucose (UA) 250 mg/dL (Normal) H 10/24/17 18:53 Urine Ketones 15 mg/dL (Negative) H 10/24/17 18:53 Urine Blood Negative (Negative) 10/24/17 18:53 Urine Nitrite Negative (Negative) 10/24/17 18:53 Urine Bilirubin Negative (Negative) 10/24/17 18:53 Urine Urobilinogen Normal mg/dL (Normal) 10/24/17 18:53 Ur Leukocyte Esterase Negative (Negative) 10/24/17 18:53 Salicylates < 5.0 mg/dL (15-30) L 10/24/17 19:01 Urine Opiates Screen Negative ng/mL (Vykooh=485) 10/24/17 18:53 Acetaminophen < 1.0 mcg/mL (10-30) L 10/24/17 19:01 Ur Barbiturates Screen Negative ng/mL (Yhsjqf=664) 10/24/17 18:53 Ur Phencyclidine Scrn Negative ng/mL (Cutoff=25) 10/24/17 18:53 Ur Amphetamines Screen Positive ng/mL (Ofzjfg=1062) H 10/24/17 18:53 U Benzodiazepines Scrn Negative ng/mL (Qakbkk=106) 10/24/17 18:53 Urine Cocaine Screen Negative ng/mL (Cutoff= 300) 10/24/17 18:53 U Marijuana (THC) Screen Positive ng/mL (Cutoff = 50) H 10/24/17 18:53 Ethyl Alcohol < 10 mg/dL (0-10) 10/24/17 19:01 Assessment and Plan (1) Suicidal ideation Current visit: Yes Status: Acute Plan: Admit inpatient for safety and stabilization, Close observation, Suicide Precautions per unit protocol, Encourage participation in unit milieu, Group Therapy, Monitor sleep, Monitor appetite Risks, benefits, side effects, alternatives discussed w/pt: Yes Patient agreeable to treatment: No (Agitated uncooperative) Estimated Length of Stay (Days): 3 (2) Amphetamine abuse Current visit: Yes Status: Acute Risks, benefits, side effects, alternatives discussed w/pt: Yes Patient agreeable to treatment: No (3) Mild tetrahydrocannabinol (THC) abuse Current visit: Yes Status: Acute Plan: Admit inpatient for safety and stabilization, Close observation, Suicide Precautions per unit protocol, Encourage participation in unit milieu, Group Therapy, Monitor sleep, Monitor appetite Risks, benefits, side effects, alternatives discussed w/pt: Yes Patient agreeable to treatment: No
[2017-10-25] MEDS: hydrOXYzine pamoate 25 MG CAPSULE PO PRN (20:36)
[2017-10-26] MEDS: Insulin LISPRO 300 UNITS/3 ML VIAL SQ SCH ×4 (08:30→20:43)
[2017-10-26] MEDS: hydrOXYzine pamoate 25 MG CAPSULE PO PRN (10:19)
--- NOTE | 2017-10-26 13:42 | Psychiatry Progress Note ---
Date of Encounter: 10/26/17 Time of Encounter: 13:38 Subjective Interval history: Patient seen for follow-up with nursing staff. Staff report continued agitated , irritable and using profane language. He refused care and medication at times. His diabetic control is adequate at this time and we will consult internal medicine. He denies suicidal and homicidal ideation. He is resistant to any questions or evaluations. He is focused on being homeless. His medication and medical history was reviewed and updated. All medication verified and restarted. He refused to participate in activities or groups. Review of Systems Psychiatric: Reports: suicidal ideation, irritability Objective: Exam Patient orientation: Yes Person, Yes Time, Yes Place Level of alertness: Alert Patient appearance: Appropriate, Unkempt, Thin Behavior: calm, aggressive, hostile, uncooperative, guarded Psychomotor activity: Agitated Eye contact: Avoids Eye Contact Mood description: Angry, Irritable Affect description: congruent with mood, labile, dysphoric Speech pattern: Normal rate, Normal rhythm, Normal tone, Limited, Includes Profanity Speech volume: Normal Thought process: Linear, Goal Oriented, Evasive Thought content: No Suicidal ideation, No Homicidal ideation, No Overt delusions Perceptual disturbances: No Auditory hallucinations, No Visual hallucinations Judgment: Fair Insight: Partial Results - Vital Signs Vital Signs: Temp Pulse Resp BP Pulse Ox 98.4 F 105 20 109/73 99 10/26/17 08:35 10/26/17 08:35 10/26/17 08:35 10/26/17 08:35 10/25/17 06:00 - Labs Labs: Laboratory Results - last 24 hr 10/25/17 10/26/17 10/26/17 16:20 07:46 07:55 POC Glucose 375 H 424 H* 412 H* 10/26/17 11:36 POC Glucose 405 H* Assessment and Plan (1) Suicidal ideation Current visit: Yes Status: Acute Plan: Continue hospitalization, Close observation, Suicide Precautions per unit protocol, Encourage participation in unit milieu, Group Therapy, Monitor sleep, Monitor appetite Risks, benefits, side effects, alternatives discussed w/pt: Yes Patient agreeable to treatment: No (Agitated uncooperative) (2) Amphetamine abuse Current visit: Yes Status: Acute Plan: Continue hospitalization, Close observation, Suicide Precautions per unit protocol, Encourage participation in unit milieu, Group Therapy, Monitor sleep, Monitor appetite Risks, benefits, side effects, alternatives discussed w/pt: Yes Patient agreeable to treatment: No (3) Mild tetrahydrocannabinol (THC) abuse Current visit: Yes Status: Acute Plan: Continue hospitalization, Close observation, Suicide Precautions per unit protocol, Encourage participation in unit milieu, Group Therapy, Monitor sleep, Monitor appetite Risks, benefits, side effects, alternatives discussed w/pt: Yes Patient agreeable to treatment: No Consult Discharge Plan - Plan Referrals: NONE,PCP [Primary Care Provider] -
--- NOTE | 2017-10-26 17:31 | Internal Medicine Consult Note ---
<[place] - Last Filed: 10/26/17 18:50> Date of Encounter: 10/26/17 Time of Encounter: 17:28 - Assessment and Plan (1) Diabetes Current Visit: Yes Status: Acute Assessment and plan: History of diabetes. Remains her glycemic while. Hospital service 7 consult to assist with management of diabetes. The patient reports his home insulin regimen includes Humulin 70/30, 15 units in the morning and 22 units at night. We will resume Humulin 70/30 at home dose and start medium sliding scale insulin coverage with before meals and at bedtime Accu-Cheks and diabetic diet. 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 Lemus is a 32 year old male with a PMH of seizures, hepatitis C, schizoaffective, diabetes. He has been admitted to psychiatric unit at [facility] due to suicidal ideation. At the time of admission on 10/24/17 the patient was indicating that he feels he has no reason to live, admitting that he was having intermittent hallucinations. He reports that he is on Seroquel at home but has not been taking it appropriately. He has a history of IV drug abuse and methamphetamine abuse. While on 1-A patient continued to have hyperglycemia and the hospitalist team is consulted to assist with management. Past Med Surg Social Fam HX - Past Medical History Medical history: diabetes, hepatitis, seizures Psychiatric history: other (Unknown) - Social History Smoking Status: Current some day smoker Packs per day: 1 pack Smokeless Tobacco Status: No Alcohol use: none Drug use: methamphetamine, IV Drug Use - Family History Father Family Member Ethnicity: Non- Living Status: Hx Family Cardiac Disorders: Yes ([place]) Hx Family Endocrine Disorder: Yes (DM) Mother Family Member Ethnicity: Non- Living Status: Still Living Sister Family Member Ethnicity: Non- Living Status: Still Living - Constitutional Constitutional: fatigue, no chills, no fever(s) - EENT Eyes: no blurry vision - Cardiovascular Cardiovascular ROS IM: no chest pain - Respiratory Respiratory: no cough, no dyspnea on exertion, no wheezing - Neurological Neurological ROS: no headache(s), no numbness, no tingling - Endocrine Endocrine IM: fatigue, no excessive sweating, no polydipsia, no polyphagia, no polyuria Internal Medicine - CN: Meds Insulin NPH Hum/Reg Insulin Hm [Novolin 70-30 100 Unit/ml Vial] 15 unit SQ HS [History] Phenytoin ER [Dilantin ER] 100 mg PO TID 09/25/17 [History] Insulin NPH Hum/Reg Insulin Hm [Novolin 70-30 100 Unit/ml Vial] 22 unit SQ QAM # 1 vial 09/27/17 [Rx] Gabapentin [Neurontin] 800 mg PO TID 10/24/17 [History] Insulin Human Regular [HumuLIN R] 0 unit SQ DAILY 10/24/17 [History] Quetiapine Fumarate [Seroquel] 300 mg PO HS 10/24/17 [History] 3 Allergy/AdvReac Type Severity Reaction Status Date / Time diphenhydramine Allergy Intermediate See Verified 10/24/17 22:01 [From Benadryl] Comments insulin glargine Allergy Blister Verified 10/24/17 22:01 [From Lantus] Internal Medicine - CN: Exam - Constitutional Vitals: Temp Pulse Resp BP Pulse Ox 98.4 F 105 20 109/73 99 10/26/17 08:35 10/26/17 08:35 10/26/17 08:35 10/26/17 08:35 10/25/17 06:00 General appearance IM: Present: cooperative, A&O X 3, no acute distress, answers questions appropriately - Respiratory Respiratory exam: Present: CTAB. Absent: accessory muscle use, rales, respiratory distress, rhonchi, wheezes, tachypnea - Cardiovascular Cardiovascular exam IM: Present: RRR, +S1, +S2 - GI/Abdominal GI/Abdominal exam IM: Present: normal bowel sounds, soft. Absent: tenderness Internal Medicine - CN: Reslt - Labs CBC & Chem 7: 10/24/17 19:01 10/24/17 19:01 Consult Discharge Plan - Plan Referrals: NONE,PCP [Primary Care Provider] - <Aiden Cuadra - Last Filed: 10/26/17 18:53> Date of Encounter: 10/26/17 Internal Medicine - CN: HPI - Data of Consult Requesting Physician: Erickson Almonte MD - Consult Narrative History of present illness: Mr. Lemus is a 32 year old male Internal Medicine - CN: Exam - Constitutional Vitals: Temp Pulse Resp BP Pulse Ox 98.4 F 105 20 109/73 99 10/26/17 08:35 10/26/17 08:35 10/26/17 08:35 10/26/17 08:35 10/25/17 06:00 Internal Medicine - CN: Reslt - Labs CBC & Chem 7: 10/24/17 19:01 10/24/17 19:01 - Attending Attestation I examined this patient and my medical decision-making was reviewed with the Resident Physician/WIRE COMMUNICATIONS ENGINEER. I agree with the documented findings, disposition and treatment plan as described except to the extent set forth below. patient seen and examined. chart reviewed Patient received first dose of his home dose insulin today. Patient did not receive any titration correctional dose. After receiving home dose of insulin patient's blood sugar is 240. We will resume home dose of insulin and correctional insulin as per the insulin order set. We will follow this patient very closely
[2017-10-26] MEDS ORDERED: Insulin NPH/REG 70/30 100 UNIT/ML (x5UNIT) SQ SCH (21:00)
[2017-10-27 06:14] LABS: Hemoglobin A1C 9.5 %
--- NOTE | 2017-10-27 06:33 | Electrocardiograph Report ---
[facility] [facility] [employer] 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
[2017-10-27] MEDS: Insulin LISPRO 300 UNITS/3 ML VIAL SQ SCH (08:31)
[2017-10-27] MEDS ORDERED: Insulin NPH/REG 70/30 100 UNIT/ML (x5UNIT) SQ SCH (09:00)
[2017-10-27 09:06] VITALS: BP 121/80
--- NOTE | 2017-10-27 10:59 | Discharge Summary ---
Date of Encounter: 10/27/17 Time of Encounter: 10:54 Diagnosis - Discharge Diagnosis (1) Suicidal ideation Status: Acute (2) Amphetamine abuse Status: Acute (3) Mild tetrahydrocannabinol (THC) abuse Status: Acute Medications - Discharge Medications Insulin NPH Hum/Reg Insulin Hm [Novolin 70-30 100 Unit/ml Vial] 15 unit SQ HS [History] Phenytoin ER [Dilantin ER] 100 mg PO TID 09/25/17 [History] Insulin NPH Hum/Reg Insulin Hm [Novolin 70-30 100 Unit/ml Vial] 22 unit SQ QAM # 1 vial 09/27/17 [Rx] Gabapentin [Neurontin] 800 mg PO TID 10/24/17 [History] Quetiapine Fumarate [Seroquel] 300 mg PO HS 10/24/17 [History] hydrOXYzine pamoate [HydrOXYzine Pamoate] 25 mg PO TID PRN capsule 10/27/17 [Rx ] 3 Allergy/AdvReac Type Severity Reaction Status Date / Time diphenhydramine Allergy Intermediate See Verified 10/24/17 22:01 [From Benadryl] Comments insulin glargine Allergy Blister Verified 10/24/17 22:01 [From Lantus] Results Procedures and tests throughout hospitalization: Completed Lab Orders Category Date Time Status A1C [Hgb A1C] Routine Lab 10/27/17 07:00 Completed Provider Date of admission: 10/25/17 09:30 Primary care physician: PCP NONE Consults: 10/26/17 13:46 Consult to Hospitalist [CONS] Stat Consulting Provider: Hospitalist [place] Reason for Consult: Uncontrolled diabetes Time Notified: 13:47 Call Completed: Yes Discharging clinician: Erickson Almonte Assessment and Plan - Patient/Caregiver Discharge Instructions Activity: resume usual activities as tolerated Diet: regular diet - Follow up Plan Follow up with: [facility] [Outside] - 10/28/17 1:00 pm (The above appointment is with Faith Holt, counselor at [facility]. Your first appointment will be very thorough and the total appointment time will take between two and three hours. You will be completing paperwork, meeting with a counselor and a nurse, and developing a treatment plan. You will receive follow- up appointments for on-going services , which could include community support, mental health and substance abuse counseling, groups/partial hospitalization programming, medication assisted treatment, and psychiatric medication management. Please bring the following with you to your first visit to the clinic: 1) proof of household income (two consecutive pay stubs, social security award letter, bank statement, statement letter from [facility], child support statement, IRS 1040 or W2 form, or a statement from the person who financially supports you stating they help provide for your basic needs), 2) proof of residency (drivers license, a piece of mail showing your address, a statement from person you live with verifying you live at their address), 3) your social security card, 4) photo ID, and 5) your insurance card (if you have commercial insurance you must call to obtain a prior authorization number before you arrive to your first appointment). If you do not bring these items, you will not be seen. ) Lenin Ortega, [Resident] - 11/29/17 1:00 pm (The above appointment is with Lenin Ortega for primary health care and medication management services. Please arrive 10 minutes early to complete the check-in process. Please also bring your insurance card, photo ID, and all medications in their original bottles to this appointment. If you are unable to keep this appointment, 24 hour business notice of cancellation is expected. The above appointment(s) reflects first availability. You may contact the office regularly to check for cancellations that may allow you to be seen sooner.) Functional capacity at discharge: independent ambulation Overall status at discharge: Stable Disposition: Home, Self-Care Hospital Course Hospital course: Mr. Lemus is a 32 year old male admitted to suicidal ideation. For details admission please see H&P On the unit patient was irritable, uncooperative, verbally abusive to staff, refusing care, refusing meds. He refused to participate in groups or activities. Diabetic control was very poor, internal medicine consult was requested and new orders for insulin and Accu-Cheks were given. Patient was refusing Accu-Cheks on and off. On discharge he was medically stable, his blood sugar was coming down. He denies any suicidal or homicidal ideation. farm worker informed she has follow-up appointments. He was discharged in stable condition. - Time Spent with Patient Total time spent providing and/or coordinating discharge services: Less than 30 minutes Quality - Multiple Antipsychotics Patient discharged on 2 or more antipsychotic medications: No Procedures - Procedures Procedures: Medication Management, Crisis Stabilization, Supportive Therapy, Group Therapy, Psychoeducational Therapy Mental Status Exam - Mental Status Exam Patient orientation: Yes Person, Yes Time, Yes Place Level of alertness: Alert Patient appearance: Appropriate, Well Groomed Behavior: calm, cooperative, restless, guarded Psychomotor activity: Normal Eye contact: Minimal Contact Mood description: Euthymic/stable Affect description: congruent with mood, full range Speech pattern: Normal rate, Normal rhythm, Normal tone Speech Volume: Normal Thought process: Linear, Goal Oriented Thought Content: No Suicidal ideation, No Homicidal ideation, No Overt delusions Perceptual Disturbances: No Auditory hallucinations, No Visual hallucinations Judgment: Limited Insight: Partial
== END 2017-10-27 11:35 | disposition home or self-care (01) | DRG 776 ==
LOC: EMEROO 16:56 → 1ANU 10-25 09:30
PROVIDERS: ADMIT Psychiatry & Neurology Psychiatry; ATTEND Psychiatry & Neurology Psychiatry

== ENCOUNTER 2017-11-04 18:34 | Inpatient (IN) ==
[2017-11-04 19:06] LABS: Bilirubin,Urine Negative (Negative); Blood,Urine Negative (Negative); Clarity,Urine Clear (Clear); Color,Urine Yellow (Yellow); Glucose,Urine (UA) >=1000 mg/dL (Normal); Ketones,Urine 40 mg/dL (Negative); Leukocyte Esterase,Urine Negative (Negative); Nitrite,Urine Negative (Negative); PH,Urine 6.5 pH Units (5.0-8.0); Protein,Urine Negative (Neg-Trace); Specific Gravity,Urine > 1.030 (1.010-1.025); Urobilinogen,Urine Normal (Normal)
[2017-11-04 19:18] LABS: Amphetamine Screen,Urine Positive ng/mL (Cutoff=1000); Barbiturate Screen,Urine Negative ng/mL (Cutoff=200); Benzodiazepines Screen,Urine Negative ng/mL (Cutoff=200); Cannabinoid Screen,Urine Negative ng/mL (Cutoff = 50); Cocaine Screen,Urine Negative ng/mL (Cutoff= 300); Opiate Screen,Urine Negative ng/mL (Cutoff=300); Phencyclidine Screen,Urine Negative ng/mL (Cutoff=25)
[2017-11-04] MEDS ORDERED: 0.9 % Sodium Chloride 1,000 ML IVC ONE ×2 (19:19→20:00)
[2017-11-04] MEDS ORDERED: Insulin Regular, Human 100 UNIT/ML SQ ONE (19:19)
--- NOTE | 2017-11-04 19:29 | Emergency Department Note ---
Disposition Clinical Impression: Hyperglycemia, Suicidal ideation Disposition: Admitted As Inpatient Condition: Good Referrals: NONE,PCP [Primary Care Provider] - Forms: ED Satisfaction Letter Time of Disposition: 21:17 Psych HPI - General Chief Complaint: ED Psychiatric Symptoms Stated Complaint: SI Time Seen by Provider: 11/04/17 18:37 Source: patient, EMS Limitations: no limitations Nursing Notes Reviewed: Yes Vital Signs Reviewed: Yes - History of Present Illness HPI Narrative: 32 year old male presents ot the Ed with compatisn of suicide because he is trying to get clean but has been havig increased thoughts of suicide. In addition he is a diabetic and has decided that to stop taking his insulin and stop refillig it. He has been hyperglycemic in the past and needed admission He denies abdominla pain or nausea at this time and states the last time he checked is was 4 days go and that time it was over 500. He has no plan set althouhg he seems depressed in the exam room and hopeless. - Related Data Home Medications Medication Instructions Recorded Confirmed Insulin NPH Hum/Reg Insulin Hm 15 unit SQ HS 09/25/17 10/24/17 [Novolin 70-30 100 Unit/ml Vial] Phenytoin ER [Dilantin ER] 100 mg PO TID 09/25/17 10/24/17 Gabapentin [Neurontin] 800 mg PO TID 10/24/17 10/24/17 Quetiapine Fumarate [Seroquel] 300 mg PO HS 10/24/17 10/24/17 Previous Rx's Medication Instructions Recorded Insulin NPH Hum/Reg Insulin Hm 22 unit SQ QAM #1 vial 09/27/17 [Novolin 70-30 100 Unit/ml Vial] hydrOXYzine pamoate [HydrOXYzine 25 mg PO TID PRN capsule 10/27/17 Pamoate] Allergies Allergy/AdvReac Type Severity Reaction Status Date / Time diphenhydramine Allergy Intermediate See Verified 10/24/17 22:01 [From Benadryl] Comments insulin glargine Allergy Blister Verified 10/24/17 22:01 [From Lantus] Constitutional: Denies: fever, chills, weakness, weight change Eyes: Denies: eye pain, eye discharge, vision change ENT ED: Denies: ear pain, throat pain, dental pain, hearing loss, epistaxis, congestion, dysphagia Cardiovascular: Denies: chest pain, palpitations, dyspnea on exertion, edema, syncope Respiratory: Denies: cough, dyspnea, wheezes, hemoptysis, stridor Gastrointestinal: Denies: abdominal pain, nausea, vomiting, diarrhea, constipation, hematemesis, melena, hematochezia Genitourinary: Denies: urgency, dysuria, frequency, hematuria Musculoskeletal: Denies: back pain, neck pain, arthralgia, myalgia Integumentary: Denies: rash, abrasion, lesions Neurological: Denies: headache, weakness, numbness, paresthesias, confusion, abnormal gait, vertigo Psychiatric: Reports: depression, suicidal thoughts. Denies: anxiety, homicidal thoughts, auditory hallucinations, visual hallucinations Endocrine: Denies: fatigue Hematological/Lymphatic: Denies: easy bleeding, easy bruising Allergic/Immunologic: Denies: facial swelling, urticaria Past Medical History - Past Medical History Medical history: Reports: diabetes, hepatitis, seizures Psychiatric history: Reports: bipolar, depression, prior suicide attempt, schizophrenia, other - Social History Smoking Status: Current some day smoker Smokeless Tobacco Status: No Alcohol use: Reports: none Drug use: Reports: methamphetamine, IV Drug Use Physical Exam - General Limitations: no limitations General appearance: alert - Head Head exam: atraumatic, normocephalic, normal inspection - Eye Eye exam: Present: normal appearance, PERRL, EOMI - Expanded Eye Exam Pupils: Left: reactive - ENT ENT exam: normal exam, normal oropharynx, mucous membranes moist - Expanded ENT Exam External ear exam: Present: normal external inspection Mouth exam: Present: normal external inspection Teeth exam: Present: normal inspection Throat exam: Present: normal inspection - Neck Neck exam: Present: normal inspection, full ROM, trachea midline - Chest Chest inspection: Present: normal inspection, symmetric chest wall rise - Respiratory Respiratory exam: Present: normal lung sounds bilaterally - Cardiovascular Cardiovascular exam: Present: regular rate, normal rhythm, normal heart sounds - Abdominal Exam Abdominal exam: Present: soft, Non-Tender. Absent: tenderness, distention, guarding, rebound, rigidity - Extremities Exam Extremities exam: Present: normal inspection, full ROM. Absent: tenderness, pedal edema - Expanded Upper Extremity Exam Shoulder exam: Present: normal inspection, full ROM Arm exam: Present: normal inspection, full ROM Elbow exam: Present: normal inspection, full ROM Forearm/Wrist exam: Present: normal inspection, full ROM Hand exam: Present: normal inspection, full ROM Vascular exam: Normal: capillary refill, radial pulse - Expanded Lower Extremity Exam Hip/Pelvis exam: Present: normal inspection, full ROM Upper leg exam: Present: normal inspection, full ROM Knee exam: Present: normal inspection, full ROM Lower leg exam: Present: normal inspection, full ROM Ankle exam: Present: normal inspection, full ROM Foot/toe exam: Present: normal inspection, full ROM Neurovascular/Tendon exam: Absent: motor deficit, sensory deficit, tendon deficit - Back Exam Back exam: Present: normal inspection, full ROM. Absent: tenderness - Neurological Exam Neurological exam: Present: alert, oriented X3 - Expanded Neurological Exam Patient oriented to: Present: person, place, time Coma Scale Eye Opening: Spontaneous Coma Scale Motor Response: Obeys Commands Coma Scale Verbal Response: Oriented Coma Scale Total: 15 - Psychiatric Psychiatric exam: Present: normal affect, normal mood - Skin Skin exam: Present: warm, dry, intact, normal color Course Course Narrative: we will not be able to do a medical clearance at this time seocndary to his hyperglycemia. We will likley have ot admit him to medicine for 24 hour obs and hen they can do a pysch clearance. - Reevaluation(s) Reevaluation #1: updated patient on results. His BS has improved to 348. He is agreeable to admission. Time: 21:16 - Consultations Consultation #1: discussed case with Dr. Walker and he has accepted patient for admission to hsi service. Time: 21:16 Vital Signs Temperature 97.7 F 11/04/17 18:35 Pulse Rate 77 11/04/17 18:35 Respiratory Rate 20 11/04/17 18:35 Blood Pressure 137/85 11/04/17 18:35 O2 Sat by Pulse Oximetry 96 11/04/17 18:35 Temperature 97.7 F 11/04/17 18:35 Pulse Rate 77 11/04/17 18:35 Respiratory Rate 20 11/04/17 18:35 Blood Pressure 137/85 11/04/17 18:35 O2 Sat by Pulse Oximetry 96 11/04/17 18:35 Oxygen Delivery Oxygen Delivery Room Air Psych - Lab Data Result diagrams: 11/04/17 19:31 11/04/17 19:31 Lab Results 12/08/17 12/08/17 12/08/17 Range/Units 18:58 18:58 19:10 WBC (4.3-11.1) K/mcL RBC (4.19-5.50) M/mcL Hgb (12.9-16.9) g/dL Hct (37.5-50.1) % MCV (83.0-100.0) fL MCH (28.0-33.3) pg MCHC (31.6-35.5) g/dL RDW (11.5-14.5) % Plt Count (140-400) K/mcL MPV (9.4-12.4) fL Immature Gran % (0-4) % Seg Neutrophils % % Lymphocytes % % Monocytes % % Eosinophils % % Basophils % % Neutrophils # (1.6-8.9) K/mcL Lymphocytes # (0.6-4.6) K/mcL Monocytes # (0.0-1.3) K/mcL Eosinophils # (0.0-0.6) K/mcL Basophils # (0.0-0.2) K/mcL VBG pH (7.32-7.42) pH Units VBG pCO2 (41-51) mmHg VBG pO2 (25-50) mmHg VBG HCO3 (21-27) mEq/L Sodium (136-145) mEq/L Potassium (3.5-4.5) mEq/L Chloride (98-109) mEq/L Carbon Dioxide (19-29) mEq/L BUN (8-26) mg/dL Creatinine (0.72-1.25) mg/dL Est GFR ( Amer) (> 60) Est GFR (Non-Af Amer) (> 60) BUN/Creatinine Ratio (6-26) Glucose (70-99) mg/dL POC Glucose 513 H* (58-89) Calculated Osmolality (280-300) Lactic Acid (0.5-2.2) mmol/L Calcium (8.6-10.8) mg/dL Beta-Hydroxybutyric Acd (0.02-0.27) mmol/L Urine Color Yellow (Yellow) Urine Clarity Clear (Clear) Urine pH 6.5 (5.0-8.0) pH Units Ur Specific [place] > 1.030 H (1.010-1.025) Urine Protein Negative (Neg-Trace) mg/dL Urine Glucose (UA) >=1000 H (Normal) mg/dL Urine Ketones 40 H (Negative) mg/dL Urine Blood Negative (Negative) Urine Nitrite Negative (Negative) Urine Bilirubin Negative (Negative) Urine Urobilinogen Normal (Normal) mg/dL Ur Leukocyte Esterase Negative (Negative) Salicylates (15-30) mg/dL Urine Opiates Screen Negative (Dusgjf=310) ng/mL Acetaminophen (10-30) mcg/mL Ur Barbiturates Screen Negative (Hjfnyf=241) ng/mL Ur Phencyclidine Scrn Negative (Cutoff=25) ng/mL Ur Amphetamines Screen Positive H (Vvtsov=3790) ng/mL U Benzodiazepines Scrn Negative (Lzfvxt=308) ng/mL Urine Cocaine Screen Negative (Cutoff= 300) ng/mL U Marijuana (THC) Screen Negative (Cutoff = 50) ng/mL Ethyl Alcohol (0-10) mg/dL 11/04/17 11/04/17 11/04/17 Range/Units 19:12 19:31 19:31 WBC 5.0 (4.3-11.1) K/mcL RBC 4.18 L (4.19-5.50) M/mcL Hgb 12.2 L (12.9-16.9) g/dL Hct 36.8 L (37.5-50.1) % MCV 88.0 (83.0-100.0) fL MCH 29.2 (28.0-33.3) pg MCHC 33.2 (31.6-35.5) g/dL RDW 14.3 (11.5-14.5) % Plt Count 237 (140-400) K/mcL MPV 9.9 (9.4-12.4) fL Immature Gran % 0.4 (0-4) % Seg Neutrophils % 59.9 % Lymphocytes % 28.3 % Monocytes % 8.6 % Eosinophils % 2.2 % Basophils % 0.6 % Neutrophils # 3.0 (1.6-8.9) K/mcL Lymphocytes # 1.4 (0.6-4.6) K/mcL Monocytes # 0.4 (0.0-1.3) K/mcL Eosinophils # 0.1 (0.0-0.6) K/mcL Basophils # 0.0 (0.0-0.2) K/mcL VBG pH (7.32-7.42) pH Units VBG pCO2 (41-51) mmHg VBG pO2 (25-50) mmHg VBG HCO3 (21-27) mEq/L Sodium 132 L (136-145) mEq/L Potassium 4.7 H (3.5-4.5) mEq/L Chloride 94 L (98-109) mEq/L Carbon Dioxide 24 (19-29) mEq/L BUN 13 (8-26) mg/dL Creatinine 0.91 (0.72-1.25) mg/dL Est GFR ( Amer) > 60 (> 60) Est GFR (Non-Af Amer) > 60 (> 60) BUN/Creatinine Ratio 14 (6-26) Glucose 553 H* (70-99) mg/dL POC Glucose 475 H* (58-89) Calculated Osmolality 299 (280-300) Lactic Acid (0.5-2.2) mmol/L Calcium 9.1 (8.6-10.8) mg/dL Beta-Hydroxybutyric Acd (0.02-0.27) mmol/L Urine Color (Yellow) Urine Clarity (Clear) Urine pH (5.0-8.0) pH Units Ur Specific [place] (1.010-1.025) Urine Protein (Neg-Trace) mg/dL Urine Glucose (UA) (Normal) mg/dL Urine Ketones (Negative) mg/dL Urine Blood (Negative) Urine Nitrite (Negative) Urine Bilirubin (Negative) Urine Urobilinogen (Normal) mg/dL Ur Leukocyte Esterase (Negative) Salicylates < 5.0 L (15-30) mg/dL Urine Opiates Screen (Pbxzuk=480) ng/mL Acetaminophen < 1.0 L (10-30) mcg/mL Ur Barbiturates Screen (Xibrpk=165) ng/mL Ur Phencyclidine Scrn (Cutoff=25) ng/mL Ur Amphetamines Screen (Tftzcl=9957) ng/mL U Benzodiazepines Scrn (Parpmz=791) ng/mL Urine Cocaine Screen (Cutoff= 300) ng/mL U Marijuana (THC) Screen (Cutoff = 50) ng/mL Ethyl Alcohol < 10 (0-10) mg/dL 11/04/17 11/04/17 11/04/17 Range/Units 19:31 19:42 20:36 WBC (4.3-11.1) K/mcL RBC (4.19-5.50) M/mcL Hgb (12.9-16.9) g/dL Hct (37.5-50.1) % MCV (83.0-100.0) fL MCH (28.0-33.3) pg MCHC (31.6-35.5) g/dL RDW (11.5-14.5) % Plt Count (140-400) K/mcL MPV (9.4-12.4) fL Immature Gran % (0-4) % Seg Neutrophils % % Lymphocytes % % Monocytes % % Eosinophils % % Basophils % % Neutrophils # (1.6-8.9) K/mcL Lymphocytes # (0.6-4.6) K/mcL Monocytes # (0.0-1.3) K/mcL Eosinophils # (0.0-0.6) K/mcL Basophils # (0.0-0.2) K/mcL VBG pH 7.33 (7.32-7.42) pH Units VBG pCO2 56 H (41-51) mmHg VBG pO2 50 (25-50) mmHg VBG HCO3 30 H (21-27) mEq/L Sodium (136-145) mEq/L Potassium (3.5-4.5) mEq/L Chloride (98-109) mEq/L Carbon Dioxide (19-29) mEq/L BUN (8-26) mg/dL Creatinine (0.72-1.25) mg/dL Est GFR ( Amer) (> 60) Est GFR (Non-Af Amer) (> 60) BUN/Creatinine Ratio (6-26) Glucose (70-99) mg/dL POC Glucose (58-89) Calculated Osmolality (280-300) Lactic Acid 0.8 (0.5-2.2) mmol/L Calcium (8.6-10.8) mg/dL Beta-Hydroxybutyric Acd > 2.00 H (0.02-0.27) mmol/L Urine Color (Yellow) Urine Clarity (Clear) Urine pH (5.0-8.0) pH Units Ur Specific [place] (1.010-1.025) Urine Protein (Neg-Trace) mg/dL Urine Glucose (UA) (Normal) mg/dL Urine Ketones (Negative) mg/dL Urine Blood (Negative) Urine Nitrite (Negative) Urine Bilirubin (Negative) Urine Urobilinogen (Normal) mg/dL Ur Leukocyte Esterase (Negative) Salicylates (15-30) mg/dL Urine Opiates Screen (Yjgtlc=809) ng/mL Acetaminophen (10-30) mcg/mL Ur Barbiturates Screen (Uiyhpr=976) ng/mL Ur Phencyclidine Scrn (Cutoff=25) ng/mL Ur Amphetamines Screen (Syzxda=1521) ng/mL U Benzodiazepines Scrn (Xxqgrh=391) ng/mL Urine Cocaine Screen (Cutoff= 300) ng/mL U Marijuana (THC) Screen (Cutoff = 50) ng/mL Ethyl Alcohol (0-10) mg/dL 11/04/17 11/04/17 Range/Units 20:59 21:01 WBC (4.3-11.1) K/mcL RBC (4.19-5.50) M/mcL Hgb (12.9-16.9) g/dL Hct (37.5-50.1) % MCV (83.0-100.0) fL MCH (28.0-33.3) pg MCHC (31.6-35.5) g/dL RDW (11.5-14.5) % Plt Count (140-400) K/mcL MPV (9.4-12.4) fL Immature Gran % (0-4) % Seg Neutrophils % % Lymphocytes % % Monocytes % % Eosinophils % % Basophils % % Neutrophils # (1.6-8.9) K/mcL Lymphocytes # (0.6-4.6) K/mcL Monocytes # (0.0-1.3) K/mcL Eosinophils # (0.0-0.6) K/mcL Basophils # (0.0-0.2) K/mcL VBG pH (7.32-7.42) pH Units VBG pCO2 (41-51) mmHg VBG pO2 (25-50) mmHg VBG HCO3 (21-27) mEq/L Sodium (136-145) mEq/L Potassium (3.5-4.5) mEq/L Chloride (98-109) mEq/L Carbon Dioxide (19-29) mEq/L BUN (8-26) mg/dL Creatinine (0.72-1.25) mg/dL Est GFR ( Amer) (> 60) Est GFR (Non-Af Amer) (> 60) BUN/Creatinine Ratio (6-26) Glucose (70-99) mg/dL POC Glucose 425 H* 384 H (58-89) Calculated Osmolality (280-300) Lactic Acid (0.5-2.2) mmol/L Calcium (8.6-10.8) mg/dL Beta-Hydroxybutyric Acd (0.02-0.27) mmol/L Urine Color (Yellow) Urine Clarity (Clear) Urine pH (5.0-8.0) pH Units Ur Specific [place] (1.010-1.025) Urine Protein (Neg-Trace) mg/dL Urine Glucose (UA) (Normal) mg/dL Urine Ketones (Negative) mg/dL Urine Blood (Negative) Urine Nitrite (Negative) Urine Bilirubin (Negative) Urine Urobilinogen (Normal) mg/dL Ur Leukocyte Esterase (Negative) Salicylates (15-30) mg/dL Urine Opiates Screen (Hzepcq=273) ng/mL Acetaminophen (10-30) mcg/mL Ur Barbiturates Screen (Ogeqft=767) ng/mL Ur Phencyclidine Scrn (Cutoff=25) ng/mL Ur Amphetamines Screen (Cpvrcq=4217) ng/mL U Benzodiazepines Scrn (Nbwucm=262) ng/mL Urine Cocaine Screen (Cutoff= 300) ng/mL U Marijuana (THC) Screen (Cutoff = 50) ng/mL Ethyl Alcohol (0-10) mg/dL - EKG Data EKG attestation: Yes I reviewed and interpreted this EKG. EKG results narrative: NSR with rate of 71. NO QRS widening or QT prolongation. NO STEMI. normal intervals. no change from 10/24/17. 1937 Psychiatric Medical Clearance - Medical Clearance Checklist Medical History: Dehydration (Acute) DKA, type 1 (Acute) Noncompliance with medications (Chronic) IV drug abuse (Chronic) Metabolic acidosis (Acute) Sepsis (Ruled-out) Nausea & vomiting (Acute) Hepatitis C (Chronic) History of seizures (Chronic) DVT prophylaxis (Acute) Suicidal ideation (Acute) Upper respiratory infection (Acute) Amphetamine abuse (Acute) Mild tetrahydrocannabinol (THC) abuse (Acute) Diabetes (Acute) No Social History Section defined Current Vitals: Last Vital Signs Temp 97.7 F 11/04/17 18:35 Pulse 77 11/04/17 18:35 Resp 20 11/04/17 18:35 BP 137/85 11/04/17 18:35 Pulse Ox 96 11/04/17 18:35 Psychiatric Lab Panel: Drug Levels and Toxicity 11/04/17 12 18:58 19:31 Urine Opiates Screen Negative Acetaminophen < 1.0 L Ur Barbiturates Screen Negative Ur Phencyclidine Scrn Negative Ur Amphetamines Screen Positive H U Benzodiazepines Scrn Negative Urine Cocaine Screen Negative U Marijuana (THC) Screen Negative Ethyl Alcohol < 10 Abnormal Labs: Abnormal lab results RBC 4.18 M/mcL (4.19-5.50) L 11/04/17 19:31 Hgb 12.2 g/dL (12.9-16.9) L 11/04/17 19:31 Hct 36.8 % (37.5-50.1) L 11/04/17 19:31 VBG pCO2 56 mmHg (41-51) H 11/04/17 19:42 VBG HCO3 30 mEq/L (21-27) H 11/04/17 19:42 Sodium 132 mEq/L (136-145) L 11/04/17 19:31 Potassium 4.7 mEq/L (3.5-4.5) H 11/04/17 19:31 Chloride 94 mEq/L (98-109) L 11/04/17 19:31 Glucose 553 mg/dL (70-99) H* 11/04/17 19:31 POC Glucose 384 (58-89) H 11/04/17 21:01 Beta-Hydroxybutyric Acd > 2.00 mmol/L (0.02-0.27) H 11/04/17 19:31 Ur Specific [place] > 1.030 (1.010-1.025) H 11/04/17 18:58 Urine Glucose (UA) >=1000 mg/dL (Normal) H 11/04/17 18:58 Urine Ketones 40 mg/dL (Negative) H 11/04/17 18:58 Salicylates < 5.0 mg/dL (15-30) L 11/04/17 19:31 Acetaminophen < 1.0 mcg/mL (10-30) L 11/04/17 19:31 Ur Amphetamines Screen Positive ng/mL (Uczwyg=8226) H 11/04/17 18:58 Statement of Medical Clearance: I have evaluated the patient, reviewed diagnostic information, and certify that the patient's medical condition is sufficiently stable that transfer to the psychiatric unit does not pose a significant risk of deterioration.
[2017-11-04 19:42] LABS: Basophils % 0.6 %; Eosinophils # 0.1 K/mcL (0.0-0.6); Eosinophils % 2.2 %; Hematocrit 36.8 % (37.5-50.1); Hemoglobin 12.2 g/dL (12.9-16.9); Immature Granulocytes % 0.4 % (0-4); Lymphocytes # 1.4 K/mcL (0.6-4.6); Lymphocytes % 28.3 %; Mean Corpuscular HGB Conc 33.2 g/dL (31.6-35.5); Mean Corpuscular Hemoglobin 29.2 pg (28.0-33.3); Mean Platelet Volume 9.9 fL (9.4-12.4); Monocytes # 0.4 K/mcL (0.0-1.3); Monocytes % 8.6 %; Platelet Count 237 K/mcL (140-400); Red Blood Count 4.18 M/mcL (4.19-5.50); Red Cell Distribution Width 14.3 % (11.5-14.5); Segmented Neutrophils % 59.9 %
[2017-11-04 19:45] LABS: VBG HCO3 30 mEq/L (21-27); VBG PCO2 56 mmHg (41-51); VBG PH 7.33 pH Units (7.32-7.42); VBG PO2 50 mmHg (25-50)
[2017-11-04 19:53] LABS: BUN/Creatinine Ratio 14 (6-26); Blood Urea Nitrogen 13 mg/dL (8-26); Calcium 9.1 mg/dL (8.6-10.8); Carbon Dioxide 24 mEq/L (19-29); Chloride 94 mEq/L (98-109); Osmolality,Calculated 299 (280-300); Potassium 4.7 mEq/L (3.5-4.5); Sodium 132 mEq/L (136-145); eGFR For African Americans > 60 (> 60); eGFR For Non-African Americans > 60 (> 60)
[2017-11-04 19:54] LABS: Acetaminophen < 1.0 mcg/mL (10-30); Ethanol < 10 mg/dL (0-10); Salicylate < 5.0 mg/dL (15-30)
[2017-11-04 19:56] LABS: Glucose 553 mg/dL (70-99)
--- NOTE | 2017-11-05 01:08 | Internal Med History&Physical ---
Date of Encounter: 11/05/17 Time of Encounter: 00:45 Assessment and Plan (1) Suicidal ideation Current visit: Yes Status: Acute Suicidal ideation without a clear plan - history of prior suicide attempt - chronic major depressive disorder Psychiatry consultation pending Patient's sitter, precautions, monitor closely (2) Diabetes Current visit: Yes Status: Acute Type 2 diabetes, insulin-dependent, hyperglycemia - with ketones, anion gap is closed Continue insulin sliding-scale, glucose checks, IV fluids HbA1c - 9.7 ADA diet, Cardiac telemetry, labs in a.m., monitor closely Qualifiers: Diabetes mellitus type: type 2 Diabetes mellitus complication status: without complication Diabetes mellitus shear operator insulin use: with shear operator use Qualified Code(s): E11.9 - Type 2 diabetes mellitus without complications ; Z79.4 - [facility] (current) use of insulin; Z79.4 - 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 of insulin; Z79.4 - [facility] (current) use of insulin; Z79.4 - [facility] ( current) use of insulin (3) Depression Current visit: Yes Status: Acute Chronic major depressive disorder - with suicidal ideation Psychiatry consult pending Qualifiers: Depression Type: major depressive disorder Major depression recurrence: recurrent Active/Remission status: currently active Major depression episode severity: severe Psychotic features: without psychotic features Qualified Code(s): F33.2 - Major depressive disorder, recurrent severe without psychotic features (4) IV drug abuse Current visit: Yes Status: Acute Chronic IV drug abuse - last use of meth was about 3 days ago Counseled extensively about cessation (5) Tobacco abuse Current visit: Yes Status: Acute Chronic tobacco abuse, counseled about cessation - patient smokes about one pack of cigarettes daily Nicotine patch (6) DVT prophylaxis Current visit: Yes Status: Acute Heparin subcutaneous Internal Medicine - H&P: HPI Chief complaint: Suicidal ideation, hyperglycemia Admitted From: Emergency Dept Plans for Post Hospital Care: Home History of present illness: Mr. Lemus is a 32 year old male with past medical history of diabetes, bipolar disorder, depression, seizures, hepatitis, schizophrenia and prior suicide attempt. Patient presents to the ED with suicidal ideation and hyperglycemia. Examined in the room. Patient is awake and alert. Not in any distress. No family members at bedside. Patient is able to answer questions appropriately. He is a vague historian. Patient states he has been having increased thoughts of suicide. He does not have a clear plan, but states he is feeling more depressed and this had suicidal thoughts over the past few days. States his last IV drug use was about 3 days ago. No auditory or visual hallucinations. No homicidal thoughts. States he wants to get clean but is unable to. Patient also mentions that he has not been using his insulin at all for the past 3-4 days. Patient denies chest pain or shortness of breath. Denies abdominal pain or nausea or vomiting. No fever. No headache or dizziness. No other acute complaints. No other associated symptoms. Initial workup in the ED is significant for hyperglycemia and elevated ketones. Drug screen is positive for amphetamines. Patient is being admitted for suicidal ideation and hyperglycemia. Psychiatry consult pending. Patient will be on insulin sliding scale and IV fluids. Patient has been explained about his condition and plan of care in detail. He understood and agreed. No unanswered questions. CODE STATUS full code. Past Med Surg Social Fam HX - Past Medical History Medical history: diabetes, hepatitis, seizures Psychiatric history: bipolar, depression, prior suicide attempt, schizophrenia, other - Social History Smoking Status: Current some day smoker Smokeless Tobacco Status: No Alcohol use: none Drug use: methamphetamine, IV Drug Use - Family History Father Family Member Ethnicity: Non- Living Status: Hx Family Cardiac Disorders: Yes ([place]) Hx Family Endocrine Disorder: Yes (DM) Mother Family Member Ethnicity: Non- Living Status: Still Living Sister Family Member Ethnicity: Non- Living Status: Still Living Internal Medicine - H&P: Meds Insulin NPH Hum/Reg Insulin Hm [Novolin 70-30 100 Unit/ml Vial] 15 unit SQ HS [History] Phenytoin ER [Dilantin ER] 100 mg PO TID 09/25/17 [History] Insulin NPH Hum/Reg Insulin Hm [Novolin 70-30 100 Unit/ml Vial] 22 unit SQ QAM # 1 vial 09/27/17 [Rx] Gabapentin [Neurontin] 800 mg PO TID 10/24/17 [History] Quetiapine Fumarate [Seroquel] 300 mg PO HS 10/24/17 [History] hydrOXYzine pamoate [HydrOXYzine Pamoate] 25 mg PO TID PRN capsule 10/27/17 [Rx ] 3 Allergy/AdvReac Type Severity Reaction Status Date / Time diphenhydramine Allergy Intermediate See Verified 10/24/17 22:01 [From Benadryl] Comments insulin glargine Allergy Blister Verified 10/24/17 22:01 [From Lantus] All Systems PM: A 10-system review of systems was performed and is negative for pertinent findings except as documented above in the HPI. - Constitutional Constitutional: fatigue, no fever(s), no weakness - EENT Eyes: no blurry vision - Cardiovascular Cardiovascular ROS IM: no chest pain, no diaphoresis, no dyspnea, no dyspnea on exertion, no edema, no lightheadedness, no orthopnea, no palpitations, no syncope - Respiratory Respiratory: no cough, no dyspnea, no hemoptysis, no dyspnea on exertion, no wheezing, no chest congestion - Gastrointestinal Gastrointestinal: nausea, no abdominal pain, no bloating, no cramping, no diarrhea, no hematemesis, no hematochezia, no vomiting - Genitourinary Genitourinary ROS male: no dysuria - Musculoskeletal Musculoskeletal ROS IM: no back pain - Neurological Neurological ROS: no abnormal gait, no confusion, no dizziness, no memory loss, no numbness, no tingling - Psychiatric Psychiatric: depression, suicidal ideation, no anxiety, no hallucinations, no homicidal ideation - Constitutional Vitals: Temp Pulse Resp BP Pulse Ox 97.5 F L 70 16 111/67 97 11/05/17 00:40 11/05/17 00:40 11/05/17 00:40 11/05/17 00:40 11/05/17 00:40 General appearance: Present: cooperative, A&O X 3, pleasant, no acute distress, answers questions appropriately Exam: Patient seems severely depressed. - Head Head exam: Present: atraumatic - Eye Eye exam: Present: EOMI - ENT ENT exam: Present: mucous membranes dry - Respiratory Respiratory exam: Present: CTAB. Absent: accessory muscle use, chest wall tenderness, rales, respiratory distress, rhonchi, wheezes, tachypnea - Cardiovascular Cardiovascular exam: Present: RRR, +S1, +S2 - GI/Abdominal GI/Abdominal exam: Present: soft. Absent: distended, firm, guarding, tenderness - Extremities Exam Extremities exam: Present: radial pulses palpable and symmetrical. Absent: calf tenderness, cyanotic, pedal edema - Neurological Exam Neurological exam: Present: alert, oriented X3, no focal deficits. Absent: facial droop, speech deficit Internal Med - H&P Results - Labs CBC & Chem 7: 11/05/17 01:21 11/05/17 01:21
[2017-11-05] MEDS ORDERED: Acetaminophen 325 MG TABLET PO PRN (01:09)
[2017-11-05] MEDS ORDERED: Ondansetron 4 MG/2 ML VIAL IVP PRN (01:09)
[2017-11-05] MEDS ORDERED: Naloxone 0.4 MG/ML INJ IVP PRN (01:09)
[2017-11-05] MEDS ORDERED: *HR* Dextrose 50 % in Water (Syg) 50 ML SYRINGE IVP PRN (01:12)
[2017-11-05] MEDS ORDERED: Dextrose Gel 15 GM PO PRN ×2 (01:12)
[2017-11-05] MEDS ORDERED: D5% in Water 1,000 ML IVC PRN (01:12)
[2017-11-05 01:35] LABS: Basophils % 0.6 %; Eosinophils # 0.2 K/mcL (0.0-0.6); Eosinophils % 3.4 %; Hematocrit 35.5 % (37.5-50.1); Hemoglobin 11.7 g/dL (12.9-16.9); Immature Granulocytes % 0.4 % (0-4); Lymphocytes # 1.9 K/mcL (0.6-4.6); Lymphocytes % 38.4 %; Mean Corpuscular Hemoglobin 28.9 pg (28.0-33.3); Mean Corpuscular Volume 87.7 fL (83.0-100.0); Mean Platelet Volume 9.5 fL (9.4-12.4); Monocytes # 0.5 K/mcL (0.0-1.3); Monocytes % 9.5 %; Neutrophils # 2.4 K/mcL (1.6-8.9); Platelet Count 234 K/mcL (140-400); Red Blood Count 4.05 M/mcL (4.19-5.50); Red Cell Distribution Width 13.9 % (11.5-14.5); Segmented Neutrophils % 47.7 %
[2017-11-05] MEDS: 0.9 % Sodium Chloride 1,000 ML IVC SCH ×2 (01:46→10:19)
[2017-11-05 01:49] LABS: BUN/Creatinine Ratio 14 (6-26); Blood Urea Nitrogen 9 mg/dL (8-26); Calcium 8.4 mg/dL (8.6-10.8); Carbon Dioxide 28 mEq/L (19-29); Chloride 100 mEq/L (98-109); Glucose 236 mg/dL (70-99); Osmolality,Calculated 286 (280-300); Potassium 3.8 mEq/L (3.5-4.5); Sodium 135 mEq/L (136-145); eGFR For African Americans > 60 (> 60); eGFR For Non-African Americans > 60 (> 60)
[2017-11-05 02:36] LABS: Hemoglobin A1C 9.7 %
[2017-11-05] MEDS ORDERED: Insulin LISPRO 300 UNITS/3 ML VIAL SQ SCH (04:00)
[2017-11-05] MEDS: *HR* Heparin 5,000 UNIT/ML VIAL SQ SCH ×2 (04:35→17:37)
[2017-11-05] MEDS: Insulin LISPRO 300 UNITS/3 ML VIAL SQ SCH ×4 (08:16→20:48)
[2017-11-05] MEDS: Nicotine 21 MG PATCH.TD24 TD SCH (08:18)
--- NOTE | 2017-11-05 10:59 | Consult Note ---
Date of Encounter: 11/05/17 Time of Encounter: 10:15 Assessment & Recommendation (1) Bipolar 1 disorder, depressed Current visit: Yes Status: Acute Assessment & Recommendation: start gabapentin 800 mg tid. and seroquel 50 mg hs patient impulsive and irritable , need in patient stabilizaton. (2) Suicidal ideation Current visit: Yes Status: Acute Assessment & Recommendation: patient is impulsive, off meds and previous suicide attempt is high risk . needs inpatient stabilization (3) Amphetamine abuse Current visit: No Status: Acute History of Present Illness Patient: new to practice Requesting Physician: Liz Bello CNP Reason for consult: suicidal ideation. History of present illness: Mr. Lemus is a 32 year old male was consulted today for suicidal ideation. Patient was evaluated today on medical floor. He has history of substance use, bipolar , depression , prior suicide attempt , seizures, hepatitis and diabetes. He presented to ER with suicidal ideation and hyperglycemia. During the interview patient very irritable , vague in his answers and no eye contact. I am drug addict and in and out of residential, I need help. he has mood swings, mind racing, irritability , decrease sleep , suicidal ideation none at present but very impulsive and has prior attempt tried to hang self. he is not on his meds for few weeks and has been using iv meth, states has not used in 2-3 days. deies any psychosis at present , admits being very depress and angry. he denies homicidal ideation . states neurontin , seroquel has helped him. he has been non compliant with his treatment both psych and medical. A/P Bipolar affective disorder mixed Methamphetamine dependence. Patient at present is not suicidal but is very impulsive , irritable, unable to contract for safety. Once medically stable He will need to be stabilized inpatient psychiatric hospital and inpatient rehab. for safety . continue sitter at present. we have no beds at [facility] today. Start gabapentin his regular dose and low dose seroquel 50 mg hs. Thank you for consult and letting me part of his care. Will sign off. CC: Liz Bello CNP Past Med Surg Social Fam HX - Past Medical History Medical history: diabetes, hepatitis, seizures - Past Psychiatric History Psychiatric history: Reports: anxiety, bipolar, depression, prior suicide attempt, previous psychiatric hospitalization Family psychiatric history: Yes Family History of Suicide: Unknown - Social History Smoking Status: Current some day smoker Smokeless Tobacco Status: No Alcohol use: none Drug use: methamphetamine, IV Drug Use - Family History Father Family Member Ethnicity: Non- Living Status: Hx Family Cardiac Disorders: Yes ([place]) Hx Family Endocrine Disorder: Yes ([place]) Mother Family Member Ethnicity: Non- Living Status: Still Living Sister Family Member Ethnicity: Non- Living Status: Still Living Medications & Allergies Insulin NPH Hum/Reg Insulin Hm [Novolin 70-30 100 Unit/ml Vial] 15 unit SQ HS [History] Phenytoin ER [Dilantin ER] 100 mg PO TID 09/25/17 [History] Insulin NPH Hum/Reg Insulin Hm [Novolin 70-30 100 Unit/ml Vial] 22 unit SQ QAM # 1 vial 09/27/17 [Rx] Gabapentin [Neurontin] 800 mg PO TID 10/24/17 [History] Quetiapine Fumarate [Seroquel] 300 mg PO HS 10/24/17 [History] hydrOXYzine pamoate [HydrOXYzine Pamoate] 25 mg PO TID PRN capsule 10/27/17 [Rx ] 3 Allergy/AdvReac Type Severity Reaction Status Date / Time diphenhydramine Allergy Intermediate See Verified 10/24/17 22:01 [From Benadryl] Comments insulin glargine Allergy Blister Verified 10/24/17 22:01 [From Lantus] Review of Systems Psychiatric: Reports: depression, anxiety, abnormal sleep pattern, hopelessness , irritability, mood swings Mental Status Exam Patient orientation: Yes Person, Yes Time, Yes Place Level of alertness: Alert Patient appearance: Appropriate Behavior: uncooperative, impulsive Psychomotor activity: Increased Eye contact: No Eye Contact Mood description: Angry, Depressed, Anxious, Irritable Affect description: congruent with mood Speech pattern: Coherent Speech volume: Normal Thought process: Racing Thought content: Yes Guilt Attention span: Unable to Sustain Attention Patient reliability: Questionable Historian Intelligence estimate: Average Judgment: Poor Insight: Minimal Results - Vital Signs Vital signs: Temp Pulse Resp BP Pulse Ox 98.2 F 83 16 132/80 96 11/05/17 08:03 11/05/17 08:03 11/05/17 08:03 11/05/17 08:03 11/05/17 08:03 - Labs Labs: Laboratory Last Values WBC 5.0 K/mcL (4.3-11.1) 11/05/17 01:21 RBC 4.05 M/mcL (4.19-5.50) L 11/05/17 01:21 Hgb 11.7 g/dL (12.9-16.9) L 11/05/17 01:21 Hct 35.5 % (37.5-50.1) L 11/05/17 01:21 MCV 87.7 fL (83.0-100.0) 11/05/17 01:21 MCH 28.9 pg (28.0-33.3) 11/05/17 01:21 MCHC 33.0 g/dL (31.6-35.5) 11/05/17 01:21 RDW 13.9 % (11.5-14.5) 11/05/17 01:21 Plt Count 234 K/mcL (140-400) 11/05/17 01:21 MPV 9.5 fL (9.4-12.4) 11/05/17 01:21 Immature Gran % 0.4 % (0-4) 11/05/17 01:21 Seg Neutrophils % 47.7 % 11/05/17 01:21 Lymphocytes % 38.4 % 11/05/17 01:21 Monocytes % 9.5 % 11/05/17 01:21 Eosinophils % 3.4 % 11/05/17 01:21 Basophils % 0.6 % 11/05/17 01:21 Neutrophils # 2.4 K/mcL (1.6-8.9) 11/05/17 01:21 Lymphocytes # 1.9 K/mcL (0.6-4.6) 11/05/17 01:21 Monocytes # 0.5 K/mcL (0.0-1.3) 11/05/17 01:21 Eosinophils # 0.2 K/mcL (0.0-0.6) 11/05/17 01:21 Basophils # 0.0 K/mcL (0.0-0.2) 11/05/17 01:21 VBG pH 7.33 pH Units (7.32-7.42) 11/04/17 19:42 VBG pCO2 56 mmHg (41-51) H 11/04/17 19:42 VBG pO2 50 mmHg (25-50) 11/04/17 19:42 VBG HCO3 30 mEq/L (21-27) H 11/04/17 19:42 Sodium 135 mEq/L (136-145) L 11/05/17 01:21 Potassium 3.8 mEq/L (3.5-4.5) 11/05/17 01:21 Chloride 100 mEq/L (98-109) 11/05/17 01:21 Carbon Dioxide 28 mEq/L (19-29) 11/05/17 01:21 BUN 9 mg/dL (8-26) 11/05/17 01:21 Creatinine 0.65 mg/dL (0.72-1.25) L 11/05/17 01:21 Est GFR ( Amer) > 60 (> 60) 11/05/17 01:21 Est GFR (Non-Af Amer) > 60 (> 60) 11/05/17 01:21 BUN/Creatinine Ratio 14 (6-26) 11/05/17 01:21 Glucose 236 mg/dL (70-99) H 11/05/17 01:21 POC Glucose 185 (58-89) H 11/05/17 00:38 Est Mean Plasma Glucose 232 mg/dl 11/05/17 01:21 Hemoglobin A1c 9.7 % (-5.6) H 11/05/17 01:21 Calculated Osmolality 286 (280-300) 11/05/17 01:21 Lactic Acid 0.8 mmol/L (0.5-2.2) 11/04/17 20:36 Calcium 8.4 mg/dL (8.6-10.8) L 11/05/17 01:21 Magnesium 1.8 mg/dL (1.6-2.6) 11/05/17 01:21 Beta-Hydroxybutyric Acd > 2.00 mmol/L (0.02-0.27) H 11/04/17 19:31 Urine Color Yellow (Yellow) 11/04/17 18:58 Urine Clarity Clear (Clear) 11/04/17 18:58 Urine pH 6.5 pH Units (5.0-8.0) 11/04/17 18:58 Ur Specific [place] > 1.030 (1.010-1.025) H 11/04/17 18:58 Urine Protein Negative mg/dL (Neg-Trace) 11/04/17 18:58 Urine Glucose (UA) >=1000 mg/dL (Normal) H 11/04/17 18:58 Urine Ketones 40 mg/dL (Negative) H 11/04/17 18:58 Urine Blood Negative (Negative) 11/04/17 18:58 Urine Nitrite Negative (Negative) 11/04/17 18:58 Urine Bilirubin Negative (Negative) 11/04/17 18:58 Urine Urobilinogen Normal mg/dL (Normal) 11/04/17 18:58 Ur Leukocyte Esterase Negative (Negative) 11/04/17 18:58 Salicylates < 5.0 mg/dL (15-30) L 11/04/17 19:31 Urine Opiates Screen Negative ng/mL (Jpqnvw=299) 11/04/17 18:58 Acetaminophen < 1.0 mcg/mL (10-30) L 11/04/17 19:31 Ur Barbiturates Screen Negative ng/mL (Nygotd=737) 11/04/17 18:58 Ur Phencyclidine Scrn Negative ng/mL (Cutoff=25) 11/04/17 18:58 Ur Amphetamines Screen Positive ng/mL (Kjwoxn=5409) H 11/04/17 18:58 U Benzodiazepines Scrn Negative ng/mL (Svrkby=240) 11/04/17 18:58 Urine Cocaine Screen Negative ng/mL (Cutoff= 300) 11/04/17 18:58 U Marijuana (THC) Screen Negative ng/mL (Cutoff = 50) 11/04/17 18:58 Ethyl Alcohol < 10 mg/dL (0-10) 11/04/17 19:31 - Impressions Impressions Chest X-Ray 11/05/17 01:04 IMPRESSION: Increased atelectasis at the lung bases, otherwise negative D/ / Roe Littlejohn MD / Roe Littlejohn MD Interpreting Provider: Roe Littlejohn MD Consult Discharge Plan - Plan Referrals: NONE,PCP [Primary Care Provider] -
[2017-11-05] MEDS: *HR* Morphine 2 MG/ML SYRINGE IVP PRN (17:36)
--- NOTE | 2017-11-05 17:49 | Event Note ---
Date of Encounter: 11/05/17 Time of Encounter: 17:31 Patient presented for suicidal ideation and also hyperglycemia with ketosis without any acidosis. He states that he wants to kill himself but he did not have a specific plan. He was hyperglycemic because he is not adherent to his medications. Vital signs reviewed Physical exam is unremarkable Labs reviewed: glucose trended down 180 but came back up to 200s. Continue IVF Restart home NPH 70/30 regimen Psychiatry consulted, 1A beds full. Needs inpatient treatment so will wait for placement once stable.
[2017-11-05] MEDS ORDERED: Insulin NPH/REG 70/30 100 UNIT/ML (x5UNIT) SQ SCH (21:00)
[2017-11-06] MEDS: *HR* Heparin 5,000 UNIT/ML VIAL SQ SCH ×2 (05:21→17:29)
[2017-11-06] MEDS ORDERED: Insulin NPH/REG 70/30 100 UNIT/ML (x5UNIT) SQ SCH ×2 (09:00→21:00)
[2017-11-06] MEDS: Nicotine 21 MG PATCH.TD24 TD SCH (10:11)
[2017-11-06] MEDS: Insulin LISPRO 300 UNITS/3 ML VIAL SQ SCH ×4 (10:12→21:15)
--- NOTE | 2017-11-06 12:05 | Internal Med Progress Note ---
Date of Encounter: 11/06/17 Time of Encounter: 12:03 - Assessment and plan (1) Suicidal ideation Current Visit: Yes Status: Acute Assessment and plan: Evaluated by psychiatry. Patient will need patient monitoring and 1A is full. Awaiting patient placement (2) Bipolar 1 disorder, depressed Current Visit: Yes Status: Acute Assessment and plan: Tinea gabapentin, Seroquel, newly started Depakote. (3) Depression Current Visit: Yes Status: Acute Qualifiers: Depression Type: major depressive disorder Major depression recurrence: recurrent Active/Remission status: currently active Major depression episode severity: severe Psychotic features: without psychotic features Qualified Code(s): F33.2 - Major depressive disorder, recurrent severe without psychotic features (4) Diabetes Current Visit: Yes Status: Acute Qualifiers: Diabetes mellitus type: type 2 Diabetes mellitus complication status: without complication Diabetes mellitus skilled nursing insulin use: with skilled nursing use Qualified Code(s): E11.9 - Type 2 diabetes mellitus without complications ; Z79.4 - exterminator termite (current) use of insulin; Z79.4 - exterminator termite (current) use of insulin; Z79.4 - exterminator termite (current) use of insulin; Z79.4 - detention ( current) use of insulin (5) DVT prophylaxis Current Visit: Yes Status: Acute (6) IV drug abuse Current Visit: Yes Status: Acute (7) Tobacco abuse Current Visit: Yes Status: Acute - Subjective Interval history: Acute events overnight. Patient denies any suicidal ideations currently, denies any depressed mood. He did have episode of low blood sugar dropped to 43 around midnight. Blood sugar is now 180. - Constitutional Vitals: Temp Pulse Resp BP Pulse Ox 97.9 F 81 16 121/76 95 11/06/17 08:50 11/06/17 08:50 11/06/17 08:50 11/06/17 08:50 11/06/17 08:50 General appearance: Present: cooperative, A&O X 3, pleasant, no acute distress, answers questions appropriately Exam: - Constitutional Constitutional: fatigue, no fever(s), no weakness - EENT Eyes: no blurry vision - Cardiovascular Cardiovascular ROS IM: no chest pain, no diaphoresis, no dyspnea, no dyspnea on exertion, no edema, no lightheadedness, no orthopnea, no palpitations, no syncope - Respiratory Respiratory: no cough, no dyspnea, no hemoptysis, no dyspnea on exertion, no wheezing, no chest congestion - Gastrointestinal Gastrointestinal: nausea, no abdominal pain, no bloating, no cramping, no diarrhea, no hematemesis, no hematochezia, no vomiting - Genitourinary Genitourinary ROS male: no dysuria - Musculoskeletal Musculoskeletal ROS IM: no back pain - Neurological Neurological ROS: no abnormal gait, no confusion, no dizziness, no memory loss, no numbness, no tingling - Psychiatric Psychiatric: depression, suicidal ideation, no anxiety, no hallucinations, no homicidal ideation Internal Medicine: Result - Labs CBC & Chem 7: 11/05/17 01:21 11/05/17 01:21 Consult Discharge Plan - Plan Referrals: NONE,PCP [Primary Care Provider] -
--- NOTE | 2017-11-07 02:20 | Electrocardiograph Report ---
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
[2017-11-07] MEDS: *HR* Heparin 5,000 UNIT/ML VIAL SQ SCH ×2 (06:24→17:25)
[2017-11-07] MEDS ORDERED: hydrOXYzine pamoate 25 MG CAPSULE PO PRN (07:33)
[2017-11-07] MEDS: Insulin LISPRO 300 UNITS/3 ML VIAL SQ SCH ×4 (08:58→21:40)
[2017-11-07] MEDS: Gabapentin 400 MG CAPSULE PO SCH ×3 (08:59→21:39)
[2017-11-07] MEDS: Insulin NPH/REG 70/30 100 UNIT/ML (x5UNIT) SQ SCH (08:59)
[2017-11-07] MEDS: Nicotine 21 MG PATCH.TD24 TD SCH (08:59)
--- NOTE | 2017-11-07 16:03 | Consult Note ---
Date of Encounter: 11/07/17 Time of Encounter: 16:02 Assessment & Recommendation (1) Major depressive disorder, recurrent severe without psychotic features Current visit: Yes Status: Acute (2) IV drug abuse Current visit: Yes Status: Acute (3) Tobacco abuse Current visit: Yes Status: Acute (4) Amphetamine abuse Current visit: No Status: Acute (5) Mild tetrahydrocannabinol (THC) abuse Current visit: No Status: Acute (6) History of seizures Current visit: No Status: Chronic History of Present Illness Requesting Physician: Terry Doherty MD Reason for consult: SI follow-up History of present illness: Mr. Lemus is a 32 year old male he is from [facility] . Patient was seen previously on a consult but no beds were available. Chief complaint: I ain't been stable I have a drug problem and I need to address. I was locked up and I have trouble being around people sometimes I feel suicidal. History of present illness: Patient reports a lot of depression and anxiety. He has trouble calming down. He has used meth amphetamine for 20 years he is refused previous treatment. He was never approved in the 3 different correctional facilities that he spent time. He has lived in [facility] since November 2016. Patient return to the [facility] one month ago and he did good but when he went back to [place] he got worse. He had difficulties with people and he got out of AA. He began using 1-1.5 g of methamphetamine since that time is used to heroin IV drug heroin that has led to hepatitis C.. The patient is brought Suboxone off the street but is not been treated with Suboxone he can get clean he has not been on methadone given Narcan 2 times by the squad and by friends several times. 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 After his timeout he has worked several jobs but had stressed. Lives on [facility]. The patient has been placed in the hole for fights and having hooch while in the alf. He recalls being in the [facility] and is having 4-5 suicide attempts, including hanging. Past psychiatric hospitalization the patient spent time in [facility] he has been told that he has borderline personality disorder antisocial personality disorder and others. Her previous consult he was diagnosed bipolar disorder mixed phase Past medical history surgeries: Surgery to right ankle for fix-it fixation Illnesses hepatitis C diabetes mellitus insulin-dependent cirrhosis of the liver. History of seizure disorder with last seizure 2 months ago. Allergies to Benadryl Medicines: Insulin, gabapentin, Dilantin, Seroquel, Valium Family history: Father was a drinker half of his family's been in fpc or alf 's mother uses Xanax and drinks a lot. No history of suicide. Social history the patient completed fourth grade he was awarded SSI he can keep his mind on things or 80s been one time he is she has several children. The patient has care source insurance. Review of systems essentially noncontributory. The patient was told to get out of [facility] in 2 hours on one occasion CC: Terry Doherty MD Past Med Surg Social Fam HX - Past Medical History Medical history: diabetes, hepatitis, seizures - Social History Smoking Status: Current some day smoker Smokeless Tobacco Status: No Alcohol use: none Drug use: methamphetamine, IV Drug Use - Family History Father Family Member Ethnicity: Non- Living Status: Hx Family Cardiac Disorders: Yes ([place]) Hx Family Endocrine Disorder: Yes (DM) Mother Family Member Ethnicity: Non- Living Status: Still Living Sister Family Member Ethnicity: Non- Living Status: Still Living Medications & Allergies Insulin NPH Hum/Reg Insulin Hm [Novolin 70-30 100 Unit/ml Vial] 15 unit SQ HS [History] Phenytoin ER [Dilantin ER] 100 mg PO TID 09/25/17 [History] Insulin NPH Hum/Reg Insulin Hm [Novolin 70-30 100 Unit/ml Vial] 22 unit SQ QAM # 1 vial 09/27/17 [Rx] Gabapentin [Neurontin] 800 mg PO TID 10/24/17 [History] Quetiapine Fumarate [Seroquel] 300 mg PO HS 10/24/17 [History] hydrOXYzine pamoate [HydrOXYzine Pamoate] 25 mg PO TID PRN capsule 10/27/17 [Rx ] 3 Allergy/AdvReac Type Severity Reaction Status Date / Time diphenhydramine Allergy Intermediate See Verified 10/24/17 22:01 [From Benadryl] Comments insulin glargine Allergy Blister Verified 10/24/17 22:01 [From Lantus] Review of Systems Gastrointestinal: Reports: other (cirrhosis) Neurological: Reports: other (seizres) Psychiatric: Reports: depression, anxiety, abnormal sleep pattern, hopelessness , irritability, mood swings Mental Status Exam Patient orientation: Yes Time, Yes Place, Yes Circumstance Level of alertness: Alert Patient appearance: Bizarre Behavior: nervous, guarded Psychomotor activity: Agitated Eye contact: Maintains Eye Contact Mood description: Depressed Affect description: full range Speech pattern: Normal rhythm Speech volume: Normal Thought process: Logical, Linear Thought content: Yes Suicidal ideation Attention span: Capable of Sustained Attention Memory description: Immediate Intact, Remote Impaired Patient reliability: Questionable Historian Intelligence estimate: Below Average Judgment: Limited Insight: Minimal Results - Vital Signs Vital signs: Temp Pulse Resp BP Pulse Ox 98.0 F 74 16 127/71 97 11/07/17 15:00 11/07/17 15:00 11/07/17 15:00 11/07/17 15:00 11/07/17 15:00 - Labs Labs: Laboratory Last Values WBC 5.0 K/mcL (4.3-11.1) 11/05/17 01:21 RBC 4.05 M/mcL (4.19-5.50) L 11/05/17 01:21 Hgb 11.7 g/dL (12.9-16.9) L 11/05/17 01:21 Hct 35.5 % (37.5-50.1) L 11/05/17 01:21 MCV 87.7 fL (83.0-100.0) 11/05/17 01:21 MCH 28.9 pg (28.0-33.3) 11/05/17 01:21 MCHC 33.0 g/dL (31.6-35.5) 11/05/17 01:21 RDW 13.9 % (11.5-14.5) 11/05/17 01:21 Plt Count 234 K/mcL (140-400) 11/05/17 01:21 MPV 9.5 fL (9.4-12.4) 11/05/17 01:21 Immature Gran % 0.4 % (0-4) 11/05/17 01:21 Seg Neutrophils % 47.7 % 11/05/17 01:21 Lymphocytes % 38.4 % 11/05/17 01:21 Monocytes % 9.5 % 11/05/17 01:21 Eosinophils % 3.4 % 11/05/17 01:21 Basophils % 0.6 % 11/05/17 01:21 Neutrophils # 2.4 K/mcL (1.6-8.9) 11/05/17 01:21 Lymphocytes # 1.9 K/mcL (0.6-4.6) 11/05/17 01:21 Monocytes # 0.5 K/mcL (0.0-1.3) 11/05/17 01:21 Eosinophils # 0.2 K/mcL (0.0-0.6) 11/05/17 01:21 Basophils # 0.0 K/mcL (0.0-0.2) 11/05/17 01:21 VBG pH 7.33 pH Units (7.32-7.42) 11/04/17 19:42 VBG pCO2 56 mmHg (41-51) H 11/04/17 19:42 VBG pO2 50 mmHg (25-50) 11/04/17 19:42 VBG HCO3 30 mEq/L (21-27) H 11/04/17 19:42 Sodium 135 mEq/L (136-145) L 11/05/17 01:21 Potassium 3.8 mEq/L (3.5-4.5) 11/05/17 01:21 Chloride 100 mEq/L (98-109) 11/05/17 01:21 Carbon Dioxide 28 mEq/L (19-29) 11/05/17 01:21 BUN 9 mg/dL (8-26) 11/05/17 01:21 Creatinine 0.65 mg/dL (0.72-1.25) L 11/05/17 01:21 Est GFR ( Amer) > 60 (> 60) 11/05/17 01:21 Est GFR (Non-Af Amer) > 60 (> 60) 11/05/17 01:21 BUN/Creatinine Ratio 14 (6-26) 11/05/17 01:21 Glucose 236 mg/dL (70-99) H 11/05/17 01:21 POC Glucose 271 (58-89) H 11/06/17 20:23 Est Mean Plasma Glucose 232 mg/dl 11/05/17 01:21 Hemoglobin A1c 9.7 % (-5.6) H 11/05/17 01:21 Calculated Osmolality 286 (280-300) 11/05/17 01:21 Lactic Acid 0.8 mmol/L (0.5-2.2) 11/04/17 20:36 Calcium 8.4 mg/dL (8.6-10.8) L 11/05/17 01:21 Magnesium 1.8 mg/dL (1.6-2.6) 11/05/17 01:21 Beta-Hydroxybutyric Acd > 2.00 mmol/L (0.02-0.27) H 11/04/17 19:31 Urine Color Yellow (Yellow) 11/04/17 18:58 Urine Clarity Clear (Clear) 11/04/17 18:58 Urine pH 6.5 pH Units (5.0-8.0) 11/04/17 18:58 Ur Specific [place] > 1.030 (1.010-1.025) H 11/04/17 18:58 Urine Protein Negative mg/dL (Neg-Trace) 11/04/17 18:58 Urine Glucose (UA) >=1000 mg/dL (Normal) H 11/04/17 18:58 Urine Ketones 40 mg/dL (Negative) H 11/04/17 18:58 Urine Blood Negative (Negative) 11/04/17 18:58 Urine Nitrite Negative (Negative) 11/04/17 18:58 Urine Bilirubin Negative (Negative) 11/04/17 18:58 Urine Urobilinogen Normal mg/dL (Normal) 11/04/17 18:58 Ur Leukocyte Esterase Negative (Negative) 11/04/17 18:58 Salicylates < 5.0 mg/dL (15-30) L 11/04/17 19:31 Urine Opiates Screen Negative ng/mL (Vllzed=289) 11/04/17 18:58 Acetaminophen < 1.0 mcg/mL (10-30) L 11/04/17 19:31 Ur Barbiturates Screen Negative ng/mL (Cnmbsl=871) 11/04/17 18:58 Ur Phencyclidine Scrn Negative ng/mL (Cutoff=25) 11/04/17 18:58 Ur Amphetamines Screen Positive ng/mL (Crlyzc=9262) H 11/04/17 18:58 U Benzodiazepines Scrn Negative ng/mL (Kvkizj=357) 11/04/17 18:58 Urine Cocaine Screen Negative ng/mL (Cutoff= 300) 11/04/17 18:58 U Marijuana (THC) Screen Negative ng/mL (Cutoff = 50) 11/04/17 18:58 Ethyl Alcohol < 10 mg/dL (0-10) 11/04/17 19:31 Consult Discharge Plan - Plan Additional Instructions: The patient would benefit from inpatient psychiatric hospitalization. He has been on our unit before he agrees to come as a voluntary patient. We are currently awaiting A bed to open up. The patient was agreed to come in for treatment. Please continue to have him on observation with the sitter as this patient has a history of impulsive behavior The consult remains open cholecystectomy can be of further assistance Referrals: NONE,PCP [Primary Care Provider] -
[2017-11-07] MEDS: *HR* Morphine 2 MG/ML SYRINGE IVP PRN (19:40)
--- NOTE | 2017-11-08 03:03 | Internal Med Progress Note ---
Date of Encounter: 11/07/17 Time of Encounter: 13:21 - Assessment and plan (1) Suicidal ideation Current Visit: Yes Status: Acute Assessment and plan: 1A was full unit over the weekend. Reconsultated Psychiatry, recommendations appreciated. (2) Bipolar 1 disorder, depressed Current Visit: Yes Status: Acute Assessment and plan: Tinea gabapentin, Seroquel, newly started Depakote. (3) Depression Current Visit: Yes Status: Acute Qualifiers: Depression Type: major depressive disorder Major depression recurrence: recurrent Active/Remission status: currently active Major depression episode severity: severe Psychotic features: without psychotic features Qualified Code(s): F33.2 - Major depressive disorder, recurrent severe without psychotic features (4) Diabetes Current Visit: Yes Status: Acute Assessment and plan: NPH in AM and also at dinner. Qualifiers: Diabetes mellitus type: type 2 Diabetes mellitus complication status: without complication Diabetes mellitus termite renewal inspector insulin use: with shelter use Qualified Code(s): E11.9 - Type 2 diabetes mellitus without complications ; Z79.4 - longterm (current) use of insulin; Z79.4 - ferry terminal agent (current) use of insulin; Z79.4 - ferry terminal agent (current) use of insulin; Z79.4 - ferry terminal agent ( current) use of insulin (5) DVT prophylaxis Current Visit: Yes Status: Acute (6) IV drug abuse Current Visit: Yes Status: Acute (7) Tobacco abuse Current Visit: Yes Status: Acute - Subjective Interval history: No acute events. Denies SI/HI currently. - Constitutional Vitals: Temp Pulse Resp BP Pulse Ox 98.1 F 87 14 106/65 97 11/07/17 23:07 11/07/17 23:07 11/07/17 23:07 11/07/17 23:07 11/07/17 23:07 General appearance: Present: cooperative, A&O X 3, pleasant, no acute distress, answers questions appropriately - Respiratory Respiratory exam: Present: CTAB. Absent: accessory muscle use, rales, rhonchi, wheezes - Cardiovascular Cardiovascular exam: Present: RRR, +S1, +S2. Absent: diastolic murmur, gallop, rubs, systolic murmur - Psychiatric Psychiatric exam: Present: flat affect, normal affect, normal mood. Absent: agitated, anxious, suicidal ideation Internal Medicine: Result - Labs CBC & Chem 7: 11/05/17 01:21 11/05/17 01:21 Consult Discharge Plan - Plan Additional Instructions: The patient would benefit from inpatient psychiatric hospitalization. He has been on our unit before he agrees to come as a voluntary patient. We are currently awaiting A bed to open up. The patient was agreed to come in for treatment. Please continue to have him on observation with the sitter as this patient has a history of impulsive behavior The consult remains open cholecystectomy can be of further assistance Referrals: NONE,PCP [Primary Care Provider] -
[2017-11-08] MEDS: *HR* Heparin 5,000 UNIT/ML VIAL SQ SCH ×2 (05:29→17:07)
[2017-11-08] MEDS: Nicotine 21 MG PATCH.TD24 TD SCH (08:29)
[2017-11-08] MEDS: Gabapentin 400 MG CAPSULE PO SCH ×2 (08:30→14:42)
[2017-11-08] MEDS: Insulin LISPRO 300 UNITS/3 ML VIAL SQ SCH ×3 (08:31→17:07)
[2017-11-08] MEDS: *HR* Morphine 2 MG/ML SYRINGE IVP PRN ×2 (08:39→17:16)
[2017-11-08] MEDS: Insulin NPH/REG 70/30 100 UNIT/ML (x5UNIT) SQ SCH (09:20)
--- NOTE | 2017-11-08 10:07 | Discharge Summary ---
Date of Encounter: 11/08/17 Time of Encounter: 10:07 - Discharge Diagnosis (1) Suicidal ideation Priority: Primary Status: Acute (2) Diabetes Priority: Secondary Status: Chronic Qualifiers: Diabetes mellitus type: type 2 Diabetes mellitus complication status: without complication Diabetes mellitus chcf insulin use: with chcf use Qualified Code(s): E11.9 - Type 2 diabetes mellitus without complications ; Z79.4 - skilled nursing (current) use of insulin; Z79.4 - skilled nursing (current) use of insulin; Z79.4 - intermediate card tender (current) use of insulin; Z79.4 - skilled nursing ( current) use of insulin (3) Tobacco abuse Priority: Secondary Status: Chronic (4) Depression Priority: Secondary Status: Chronic Qualifiers: Depression Type: major depressive disorder Major depression recurrence: recurrent Active/Remission status: currently active Major depression episode severity: severe Psychotic features: without psychotic features Qualified Code(s): F33.2 - Major depressive disorder, recurrent severe without psychotic features (5) Bipolar 1 disorder, depressed Priority: Secondary Status: Chronic - Discharge Medications Home Medications: Insulin NPH Hum/Reg Insulin Hm [Novolin 70-30 100 Unit/ml Vial] 15 unit SQ HS [History] Phenytoin ER [Dilantin ER] 100 mg PO TID 09/25/17 [History] Insulin NPH Hum/Reg Insulin Hm [Novolin 70-30 100 Unit/ml Vial] 22 unit SQ QAM # 1 vial 09/27/17 [Rx] Gabapentin [Neurontin] 800 mg PO TID 10/24/17 [History] Quetiapine Fumarate [Seroquel] 300 mg PO HS 10/24/17 [History] hydrOXYzine pamoate [HydrOXYzine Pamoate] 25 mg PO TID PRN capsule 10/27/17 [Rx ] Allergies/Adverse Reactions: 3 Allergy/AdvReac Type Severity Reaction Status Date / Time diphenhydramine Allergy Intermediate See Verified 10/24/17 22:01 [From Benadryl] Comments insulin glargine Allergy Blister Verified 10/24/17 22:01 [From Lantus] Date of admission: 11/05/17 00:10 Primary care physician: PCP NONE Consults: 11/05/17 01:06 Consult to Psychiatry [CONS] Routine Consulting Provider: Psychiatry Elana Reason for Consult: suicidal ideation Call Completed: No 11/07/17 14:48 Consult to Psychiatry [CONS] Routine Consulting Provider: Bob Huitron Reason for Consult: re evaluate Call Completed: Yes Discharging clinician: Abad Bonilla Anticipated date of discharge: 11/08/17 - Patient Status Disposition: Transfer Psychiatric Hosp Condition: Good Functional capacity at discharge: independent ambulation Overall status at discharge: patient is back to baseline - Discharge Instructions Follow Up With: NONE,PCP [Primary Care Provider] - Additional Instructions: The patient would benefit from inpatient psychiatric hospitalization. He has been on our unit before he agrees to come as a voluntary patient. We are currently awaiting A bed to open up. The patient was agreed to come in for treatment. Please continue to have him on observation with the sitter as this patient has a history of impulsive behavior The consult remains open cholecystectomy can be of further assistance - Diet and Activity Activity: resume usual activities as tolerated Diet: diabetic diet Interval History: See below Hospital course: Mr. Lemus is a 32 year old male with medical history of type 1 diabetes mellitus, intravenous drug abuse, tobacco abuse, depression and bipolar disorder. Patient was admitted for suicidal ideation. Patient is medically stable to be transferred to psych inpatient unit. Time spent discussing smoking cessation with patient: 3 to 10 minutes - Time Spent with Patient Total time spent providing and/or coordinating discharge services: Greater than 30 minutes (45 minutes) - Constitutional Vitals: Temp Pulse Resp BP Pulse Ox 97.7 F 77 16 116/77 97 11/08/17 08:00 11/08/17 08:00 11/08/17 08:00 11/08/17 08:00 11/08/17 08:00 General appearance: Present: cooperative, A&O X 3, pleasant, no acute distress, answers questions appropriately - Head Head exam: Present: atraumatic, normocephalic - Eye Eye exam: Present: PERRL, conjuntiva pink, sclera anicteric Pupils: Present: PERRL - Neck Neck exam general surgery: Present: supple, trachea midline. Absent: lymphadenopathy - Respiratory Respiratory exam: Present: CTAB. Absent: accessory muscle use, rales, rhonchi, wheezes - Cardiovascular Cardiovascular exam: Present: RRR, +S1, +S2. Absent: diastolic murmur, gallop, rubs, systolic murmur - GI/Abdominal GI/Abdominal exam: Present: normal bowel sounds, soft, no peritoneal signs. Absent: distended, tenderness - Extremities Exam Extremities exam: Present: warm, radial pulses palpable and symmetrical. Absent : calf tenderness, cyanotic, pedal edema - Neurological Exam Neurological exam: Present: alert, CN II-XII intact, oriented X3, no focal deficits. Absent: pronater drift, facial droop, speech deficit - Skin Skin exam: Present: dry, intact
[2017-11-08 16:05] VITALS: BP 113/74
[2017-11-08] MEDS ORDERED: Insulin NPH/REG 70/30 100 UNIT/ML (x5UNIT) SQ SCH (21:00)
== END 2017-11-08 17:44 | DRG 751 ==
LOC: 3BNU 18:34 → EMEROO 18:34 → 3BNU 11-05 00:06 → SUATTDRO 11-05 00:10 → 3BNU 11-05 00:30
PROVIDERS: ADMIT Internal Medicine; ATTEND Internal Medicine

== ENCOUNTER 2017-11-08 17:45 | Inpatient (IN) ==
[2017-11-08] MEDS ORDERED: *HR* LORazepam 1 MG TABLET PO PRN (18:18)
[2017-11-08] MEDS ORDERED: *HR* LORazepam 2 MG/ML VIAL IM PRN (18:18)
[2017-11-08] MEDS ORDERED: Ibuprofen 400 MG TABLET PO PRN (18:18)
[2017-11-08] MEDS ORDERED: Mag Hydrox/Al Hydrox/Simeth 30 ML UDC PO PRN (18:18)
[2017-11-08] MEDS ORDERED: hydrOXYzine pamoate 25 MG CAPSULE PO PRN (18:18)
[2017-11-08] MEDS ORDERED: MOM Conc 10 ML UD.LIQ PO PRN (18:18)
[2017-11-08] MEDS ORDERED: Haloperidol Lactate 5 MG/ML VIAL IM PRN (18:18)
[2017-11-08] MEDS ORDERED: Dextrose Gel 15 GM PO PRN ×2 (18:21)
[2017-11-08] MEDS ORDERED: Insulin LISPRO 300 UNITS/3 ML VIAL SQ SCH (21:00)
[2017-11-08] MEDS: Gabapentin 400 MG CAPSULE PO SCH (21:06)
[2017-11-08] MEDS: Insulin NPH/REG 70/30 100 UNIT/ML (x5UNIT) SQ SCH (21:09)
[2017-11-09] MEDS: Gabapentin 400 MG CAPSULE PO SCH ×3 (08:26→20:37)
[2017-11-09] MEDS: Insulin LISPRO 300 UNITS/3 ML VIAL SQ SCH ×4 (08:27→20:36)
[2017-11-09] MEDS: Insulin NPH/REG 70/30 100 UNIT/ML (x5UNIT) SQ SCH ×2 (08:30→20:36)
--- NOTE | 2017-11-09 12:53 | Psychiatry History & Physical ---
Date of Encounter: 11/09/17 Time of Encounter: 12:45 History of Present Illness Patient Stated Chief Complaint: get clean and go to [facility] Medicare Admission Attestation: For traditional Medicare patients the provided hospital inpatient services are reasonable and necessary and in the case of services not specified as inpatient -only under 42 CFR 419.22 (n), that they are appropriately provided as inpatient services in accordance 42 CFR 412.3. For Critical Access Hospital the patient may reasonably be expected to be discharged or transferred to a hospital within 96 hours after admission to the Critical Access Hospital. Admitted From: Intrahospital Transfer Plans for Post Hospital Care: Transfer Other History of Present Illness: Mr. Lemus is a 32 year old male He is known to me from my consult. Please review my consult for details. The patient has a history of IV drug abuse including methamphetamine and THC and IV heroin occasionally. The patient's suicidal ideation includes plans to kill himself. He was not specific about the details of this but this patient's history is most concerning for drug-induced overdose. The patient also has insulin-dependent diabetes making his efforts suicide or potentially more lethal. The patient was previously on several medicines and was discharged from [facility] within the last 30 days. The reader is referred to review this document. Today the patient reports improvement in depressive symptoms and improvement in anxiety symptoms associated with being on his medicines. He is willing to stay and for treatment and has signed a voluntary admission form. Past Med Surg Social Fam HX - Past Medical History Medical history: diabetes, hepatitis, seizures - Past Psychiatric History Psychiatric history: Reports: previous psychiatric hospitalization Family psychiatric history: Yes Family History of Suicide: Completed - Social History Smoking Status: Current some day smoker Smokeless Tobacco Status: No Alcohol use: none Drug use: marijuana, methamphetamine, IV Drug Use Occupational status: unemployed Current living situation: Other Activity Level: Independent ambulation Recent Out of Country Travel Within the Last 8 Weeks: No Exposure or Possible Exposure to Illness During Travel: No - Family History Father Family Member Ethnicity: Non- Living Status: Hx Family Cardiac Disorders: Yes ([place]) Hx Family Endocrine Disorder: Yes (DM) Mother Family Member Ethnicity: Non- Living Status: Still Living Sister Family Member Ethnicity: Non- Living Status: Still Living Medications & Allergies Insulin NPH Hum/Reg Insulin Hm [Novolin 70-30 100 Unit/ml Vial] 15 unit SQ HS [History] Phenytoin ER [Dilantin ER] 100 mg PO TID 09/25/17 [History] Insulin NPH Hum/Reg Insulin Hm [Novolin 70-30 100 Unit/ml Vial] 22 unit SQ QAM # 1 vial 09/27/17 [Rx] Gabapentin [Neurontin] 800 mg PO TID 10/24/17 [History] Quetiapine Fumarate [Seroquel] 300 mg PO HS 10/24/17 [History] 3 Allergy/AdvReac Type Severity Reaction Status Date / Time diphenhydramine Allergy Intermediate See Verified 10/24/17 22:01 [From Benadryl] Comments insulin glargine Allergy Blister Verified 10/24/17 22:01 [From Lantus] Review of Systems Constitutional: Reports: weight change. Denies: fever, chills, weakness Eyes: Denies: eye pain, vision change Ears, Nose, Throat: Denies: ear pain, throat pain, dental pain, hearing loss, congestion Cardiovascular: Denies: chest pain, palpitations, dyspnea on exertion Respiratory: Denies: cough, dyspnea, wheezes Gastrointestinal: Denies: abdominal pain, nausea, vomiting, diarrhea, constipation Genitourinary male: Denies: urgency, dysuria, frequency, genital lesions Musculoskeletal: Reports: joint pain, myalgia Integumentary: Denies: rash, lesions, pruritus Neurological: Reports: numbness, paresthesias. Denies: headache, weakness, memory loss Endocrine: Denies: fatigue, heat or cold intolerance Hematologic/Lymphatic: Denies: easy bruising, lymphadenopathy Allergic/Immunologic: Denies: urticaria, itchy eyes Mental Status Exam Patient orientation: Yes Person, Yes Time, Yes Place Level of alertness: Alert Patient appearance: Appropriate, Unkempt Behavior: calm, nervous Psychomotor activity: Slowed Eye contact: Minimal Contact Mood description: Depressed Affect description: congruent with mood, full range Speech pattern: Normal rate, Normal rhythm, Normal tone, Slowed Speech volume: Normal Thought process: Linear, Goal Oriented Thought content: Yes Suicidal ideation, No Homicidal ideation, No Overt delusions, Yes Paranoid delusion Perceptual disturbances: No Auditory hallucinations, No Visual hallucinations Attention span: Capable of Sustained Attention Judgment: Limited Insight: Partial Exam - HEENT Head exam IM: Present: normal inspection - Neurological Neurological exam IM: Present: normal gait Results - Vital Signs Vital signs: Temp Pulse Resp BP 97 F L 91 16 112/69 11/09/17 08:13 11/09/17 08:13 11/09/17 08:13 11/09/17 08:13 - Labs Labs: Laboratory Last Values POC Glucose 506 (58-89) H* 11/09/17 11:40 was given 16 unit for coverage Assessment and Plan (1) Major depressive disorder, recurrent severe without psychotic features Current visit: No Status: Acute Plan: Admit inpatient for safety and stabilization, Close observation, Suicide Precautions per unit protocol Additional Plan: add Quetiapine While this patient will be restarted on his medications. He is seeking admission to a [facility] hospitalization program. The patient can be restarted on gabapentin quetiapine hydroxyzine and baclofen 10 mg 3 times a day will be added for his foot pain. He may have developed some diabetic neuropathy. The patient is still having suicidal ideation needs to be observed within our environment. He also has a history of seizures and is on seizure precautions although none recent. Risks, benefits, side effects, alternatives discussed w/pt: Yes Patient agreeable to treatment: Yes (2) IV drug abuse Current visit: Yes Status: Acute Plan: Group Therapy, Monitor appetite Risks, benefits, side effects, alternatives discussed w/pt: Yes Patient agreeable to treatment: Yes Plans for Post Hospital Care: Transfer Other (3) DKA, type 1 Current visit: No Status: Acute Plan: Monitor appetite Additional Plan: minotor blood sugars, provide insulin coverage Risks, benefits, side effects, alternatives discussed w/pt: Yes Patient agreeable to treatment: Yes Plans for Post Hospital Care: Transfer Other Qualifiers: Diabetes mellitus complication detail: without coma Qualified Code(s): E10.10 - Type 1 diabetes mellitus with ketoacidosis without coma
[2017-11-09] MEDS ORDERED: Baclofen 10 MG TABLET PO PRN (13:12)
[2017-11-10] MEDS: Gabapentin 400 MG CAPSULE PO SCH ×3 (08:26→21:20)
[2017-11-10] MEDS: Insulin NPH/REG 70/30 100 UNIT/ML (x5UNIT) SQ SCH ×2 (08:26→21:19)
[2017-11-10] MEDS: Insulin LISPRO 300 UNITS/3 ML VIAL SQ SCH ×4 (08:28→21:19)
--- NOTE | 2017-11-10 11:31 | Psychiatry Progress Note ---
Date of Encounter: 11/10/17 Time of Encounter: 11:28 Subjective Interval history: Patient is willing to go the clinic. He has plans to Suboxone. He would like to valium. He was told of the warning. State monitor of drugs. Review of Systems Psychiatric: Reports: irritability, mood swings Endocrine: Reports: polydipsia Objective: Exam Patient orientation: Yes Person (cannot say what will happen if he goes on the street.), Yes Time, Yes Place Level of alertness: Alert Patient appearance: Appropriate Behavior: calm, cooperative, hostile, suspicious Psychomotor activity: Normal Eye contact: Minimal Contact (he cannt say what might happen if he leaves and is on the street) Mood description: Irritable Affect description: dysphoric Speech pattern: Normal rate, Normal rhythm, Normal tone Speech volume: Normal Thought process: Linear, Goal Oriented Thought content: Yes Suicidal ideation (some paranoia, and irritability), No Homicidal ideation, No Overt delusions Perceptual disturbances: No Auditory hallucinations, No Visual hallucinations, Yes Depersonalization Judgment: Fair Insight: Partial Results - Vital Signs Vital Signs: Temp Pulse Resp BP 97.5 F L 84 16 100/73 11/10/17 09:00 11/10/17 09:00 11/10/17 09:00 11/10/17 09:00 - Drug Levels and Toxicology Drug Levels and Toxicology: elevated blood sugar on sliding insulin scale - Labs Labs: Laboratory Results - last 24 hr 11/09/17 11/09/17 11/09/17 11:37 11:40 13:02 POC Glucose > 600 H* 506 H* 484 H* 11/09/17 11/09/17 11/09/17 13:44 16:31 20:04 POC Glucose 419 H* 379 H 331 H 11/10/17 11/10/17 11/10/17 08:09 11:22 11:25 POC Glucose 199 H 434 H* 402 H* Assessment and Plan (1) Major depressive disorder, recurrent severe without psychotic features Current visit: No Status: Acute Plan: Continue hospitalization, Encourage participation in unit milieu, Monitor sleep Additional Plan: cotninue meds, add Xanaflex, while valium was requested, it is not advised for patients who wish to start Suboxone. Risks, benefits, side effects, alternatives discussed w/pt: Yes Patient agreeable to treatment: Yes (2) IV drug abuse Current visit: Yes Status: Acute Risks, benefits, side effects, alternatives discussed w/pt: Yes Patient agreeable to treatment: Yes (3) DKA, type 1 Current visit: No Status: Acute Plan: Continue hospitalization Additional Plan: medical consult for hyperglycemia an diabetes mellitus Risks, benefits, side effects, alternatives discussed w/pt: Yes Patient agreeable to treatment: Yes Qualifiers: Diabetes mellitus complication detail: without coma Qualified Code(s): E10.10 - Type 1 diabetes mellitus with ketoacidosis without coma Consult Discharge Plan - Plan Referrals: Self, Refind [Other] - 11/23/17 12:30 pm (You will see Sylvia Beny on 2016 at 12:30 PM. This appointment is for assessment for Suboxone treatment. You must not arrive late to this appointment. You must also have your insurance card and photo ID or you will not be seen.) [facility] [Outside] (You will see Filomena Hahn for outpatient psychiatric assessment and medication management services on 12/13/2016 at 8:30 AM.) Lenin Ortega DO [Resident] - 11/29/17 1:00 pm (The above appointment is with Lenin Ortega for primary health care and medication management services. Please arrive 10 minutes early to complete the check-in process. Please also bring your insurance card, photo ID, and all medications in their original bottles to this appointment. If you are unable to keep this appointment, 24 hour business notice of cancellation is expected. The above appointment(s) reflects first availability. You may contact the office regularly to check for cancellations that may allow you to be seen sooner.)
--- NOTE | 2017-11-10 13:20 | Internal Medicine Consult Note ---
Date of Encounter: 11/10/17 Time of Encounter: 13:16 - Assessment and Plan (1) Diabetes Current Visit: No Status: Chronic Assessment and plan: Mariah is a 32 year old male diabetic patient . Recent blood glucose level, was 402 . we recommend Accu-Chek four times daily the morning insulin to be increased to 25 units in the evening went to 70 units we continue to monitor the trending . He should also continued to on diabetic diet Qualifiers: Diabetes mellitus type: type 2 Diabetes mellitus complication status: without complication Diabetes mellitus chcf insulin use: with terminal gauger use Qualified Code(s): E11.9 - Type 2 diabetes mellitus without complications ; Z79.4 - long-term (current) use of insulin; Z79.4 - ferry terminal agent (current) use of insulin; Z79.4 - ferry terminal agent (current) use of insulin; Z79.4 - ferry terminal agent ( current) use of insulin Internal Medicine - CN: HPI - Data of Consult Consult date: 11/10/17 Requesting Physician: Jose Miguel Vincent - Consult Narrative Reason for consult: Diabetic management History of present illness: Mr. Lemus is a 32 year old male Mariah is a 32 year old male admitted to psych unit at [facility] in [place]. The hospitalist group was consulted, for his diabetic management blood sugar showed his blood sugar being in the 400s and the group was consulted to initiate treatment to reduce the level of his blood sugar. Past Med Surg Social Fam HX - Past Medical History Medical history: diabetes, hepatitis, seizures Psychiatric history: previous psychiatric hospitalization - Social History Smoking Status: Current some day smoker Smokeless Tobacco Status: No Alcohol use: none Drug use: marijuana, methamphetamine, IV Drug Use - Family History Father Family Member Ethnicity: Non- Living Status: Hx Family Cardiac Disorders: Yes ([place]) Hx Family Endocrine Disorder: Yes (DM) Mother Family Member Ethnicity: Non- Living Status: Still Living Sister Family Member Ethnicity: Non- Living Status: Still Living Internal Medicine - CN: Meds Insulin NPH Hum/Reg Insulin Hm [Novolin 70-30 100 Unit/ml Vial] 15 unit SQ HS [History] Phenytoin ER [Dilantin ER] 100 mg PO TID 09/25/17 [History] Insulin NPH Hum/Reg Insulin Hm [Novolin 70-30 100 Unit/ml Vial] 22 unit SQ QAM # 1 vial 09/27/17 [Rx] Gabapentin [Neurontin] 800 mg PO TID 10/24/17 [History] Quetiapine Fumarate [Seroquel] 300 mg PO HS 10/24/17 [History] 3 Allergy/AdvReac Type Severity Reaction Status Date / Time diphenhydramine Allergy Intermediate See Verified 10/24/17 22:01 [From Benadryl] Comments insulin glargine Allergy Blister Verified 10/24/17 22:01 [From Lantus] Internal Medicine - CN: Exam - Constitutional Vitals: Temp Pulse Resp BP 97.5 F L 84 16 100/73 11/10/17 09:00 11/10/17 09:00 11/10/17 09:00 11/10/17 09:00 General appearance IM: Present: A&O X 3 - Head Head exam: Present: atraumatic Consult Discharge Plan - Plan Referrals: Self, Refind [Other] - 11/23/17 12:30 pm (You will see Sylvia Swan on 2016 at 12:30 PM. This appointment is for assessment for Suboxone treatment. You must not arrive late to this appointment. You must also have your insurance card and photo ID or you will not be seen.) [facility] [Outside] (You will see Filomena Hahn for outpatient psychiatric assessment and medication management services on 12/13/2016 at 8:30 AM.) Lenin Ortega DO [Resident] - 11/29/17 1:00 pm (The above appointment is with Lenin Ortega for primary health care and medication management services. Please arrive 10 minutes early to complete the check-in process. Please also bring your insurance card, photo ID, and all medications in their original bottles to this appointment. If you are unable to keep this appointment, 24 hour business notice of cancellation is expected. The above appointment(s) reflects first availability. You may contact the office regularly to check for cancellations that may allow you to be seen sooner.) - Attending Attestation Anish Ritter
[2017-11-10] MEDS: tiZANidine 4 MG TABLET PO SCH ×2 (15:22→21:20)
[2017-11-11] MEDS: Insulin LISPRO 300 UNITS/3 ML VIAL SQ SCH ×4 (08:24→20:45)
[2017-11-11] MEDS: Gabapentin 400 MG CAPSULE PO SCH ×3 (08:25→20:44)
[2017-11-11] MEDS: tiZANidine 4 MG TABLET PO SCH ×3 (08:25→20:44)
[2017-11-11] MEDS: Insulin NPH/REG 70/30 100 UNIT/ML (x5UNIT) SQ SCH ×2 (08:34→20:44)
--- NOTE | 2017-11-11 14:37 | Psychiatry Progress Note ---
Date of Encounter: 11/11/17 Time of Encounter: 14:34 Subjective Interval history: Patient is irritable. he is saying "there is no sense in trying to get help" He is concerned about the dosing of his insulin. he took the Zaniflex. He notes it was tolerated. He says "insulin" at the meal does not help, I am sick of it"/ I didn't take the meds ... because she pissed me off. Review of Systems Musculoskeletal: Reports: back pain, joint pain, myalgia Psychiatric: Reports: irritability, mood swings Endocrine: Reports: polydipsia Objective: Exam Patient orientation: Yes Person, Yes Time, Yes Place, Yes Circumstance Level of alertness: Alert Patient appearance: Appropriate Behavior: aggressive, hostile Psychomotor activity: Normal Eye contact: Minimal Contact Mood description: Irritable Affect description: labile Speech pattern: Normal rate Speech volume: Loud Thought process: Intact, Logical Thought content: Yes Paranoid delusion Judgment: Fair Insight: Partial Results - Vital Signs Vital Signs: Temp Pulse Resp BP 97 F L 91 16 106/72 11/11/17 09:00 11/11/17 09:00 11/11/17 09:00 11/11/17 09:00 - Labs Labs: Laboratory Results - last 24 hr 11/10/17 11/10/17 11/10/17 16:12 16:14 20:57 POC Glucose 265 H 293 H 328 H 11/11/17 08:16 POC Glucose 168 H Assessment and Plan (1) Major depressive disorder, recurrent severe without psychotic features Current visit: No Status: Acute Plan: Continue hospitalization Additional Plan: conitnue current meds Risks, benefits, side effects, alternatives discussed w/pt: Yes Patient agreeable to treatment: Yes (2) IV drug abuse Current visit: Yes Status: Acute Plan: Continue hospitalization, Suicide Precautions per unit protocol, Group Therapy Additional Plan: seek rehab, look at residential issues. Risks, benefits, side effects, alternatives discussed w/pt: Yes Patient agreeable to treatment: Yes (3) DKA, type 1 Current visit: No Status: Acute Additional Plan: consider medical consult Risks, benefits, side effects, alternatives discussed w/pt: Yes Patient agreeable to treatment: Yes Qualifiers: Diabetes mellitus complication detail: without coma Qualified Code(s): E10.10 - Type 1 diabetes mellitus with ketoacidosis without coma Consult Discharge Plan - Plan Referrals: Self, Refind [Other] - 11/23/17 12:30 pm (You will see Sylvia Swan on 2016 at 12:30 PM. This appointment is for assessment for Suboxone treatment. You must not arrive late to this appointment. You must also have your insurance card and photo ID or you will not be seen.) [facility] [Outside] - 11/15/17 10:00 am (The above appointment is with Faith Holt for outpatient mental health and substance abuse counseling services. You will also see Filomena Hahn for outpatient psychiatric assessment and medication management services on 12/13/2016 at 8:30 AM.) Lenin Ortega DO [Resident] - 11/29/17 1:00 pm (The above appointment is with Lenin Ortega for primary health care and medication management services. Please arrive 10 minutes early to complete the check-in process. Please also bring your insurance card, photo ID, and all medications in their original bottles to this appointment. If you are unable to keep this appointment, 24 hour business notice of cancellation is expected. The above appointment(s) reflects first availability. You may contact the office regularly to check for cancellations that may allow you to be seen sooner.)
--- NOTE | 2017-11-11 18:37 | Internal Med Progress Note ---
Date of Encounter: 11/11/17 Time of Encounter: 18:34 - Assessment and plan (1) DKA, type 1 Current Visit: No Status: Chronic Qualifiers: Diabetes mellitus complication detail: without coma Qualified Code(s): E10.10 - Type 1 diabetes mellitus with ketoacidosis without coma (2) Suicidal ideation Current Visit: No Status: Acute (3) Tobacco abuse Current Visit: No Status: Chronic (4) Bipolar 1 disorder, depressed Current Visit: No Status: Chronic Assessment and plan: PT'S GLUCOSE HAS BEEN ELEVATED TODAY. NURSE REPORTS THAT HE REFUSED HIS INSULIN EARLIER TODAY. WHEN I ASKED PT HE SAID HE WANTED THE INSULIN EARLIER THAT HIS WHY HE REFUSED IT. HE SAID HE WAS PREVIOUSLY GIVEN AFTER MEAL WHILE HE WAS ON THE [employer] FLOOR RESULTING IN HYPOGLYCEMIA AND THAT WAS WHAT HE WAS AVOIDING. I COUNSELED PT ON IMPORTANCE OF TAKING HIS MEDS PRESCRIBED. CONTINUE ACCUCHECKS. STRICT DIABETIC DIET. WILL CONTINUE TO FOLLOW. - Subjective Interval history: NO COMPLAINS - Constitutional Vitals: Temp Pulse Resp BP 97 F L 91 16 106/72 11/11/17 09:00 11/11/17 09:00 11/11/17 09:00 11/11/17 09:00 General appearance: Present: A&O X 3 - Respiratory Respiratory exam: Present: CTAB. Absent: accessory muscle use, rales, rhonchi, wheezes - Cardiovascular Cardiovascular exam: Present: RRR, +S1, +S2. Absent: diastolic murmur, gallop, rubs, systolic murmur - GI/Abdominal GI/Abdominal exam: Present: normal bowel sounds, soft, no peritoneal signs. Absent: distended, tenderness - Extremities Exam Extremities exam: Present: warm, radial pulses palpable and symmetrical. Absent : calf tenderness, cyanotic, pedal edema - VTE Reasons for not Prescribing Prophylaxis: Treatment not Indicated - Low risk for VTE Consult Discharge Plan - Plan Referrals: Self, Refind [Other] - 11/23/17 12:30 pm (You will see Sylvia Swan on 2016 at 12:30 PM. This appointment is for assessment for Suboxone treatment. You must not arrive late to this appointment. You must also have your insurance card and photo ID or you will not be seen.) [facility] [Outside] - 11/15/17 10:00 am (The above appointment is with Faith Holt for outpatient mental health and substance abuse counseling services. You will also see Filomena Hahn for outpatient psychiatric assessment and medication management services on 12/13/2016 at 8:30 AM.) Lenin Ortega DO [Resident] - 11/29/17 1:00 pm (The above appointment is with Lenin Ortega for primary health care and medication management services. Please arrive 10 minutes early to complete the check-in process. Please also bring your insurance card, photo ID, and all medications in their original bottles to this appointment. If you are unable to keep this appointment, 24 hour business notice of cancellation is expected. The above appointment(s) reflects first availability. You may contact the office regularly to check for cancellations that may allow you to be seen sooner.)
[2017-11-11] MEDS: traMADol 50 MG TABLET PO PRN (20:43)
[2017-11-12] MEDS ORDERED: Insulin LISPRO 300 UNITS/3 ML VIAL SQ SCH (08:11)
[2017-11-12] MEDS: Insulin NPH/REG 70/30 100 UNIT/ML (x5UNIT) SQ SCH ×2 (08:15→20:33)
[2017-11-12] MEDS: Gabapentin 400 MG CAPSULE PO SCH ×3 (08:24→20:33)
[2017-11-12] MEDS: tiZANidine 4 MG TABLET PO SCH ×3 (08:24→20:33)
[2017-11-12] MEDS: Insulin LISPRO 300 UNITS/3 ML VIAL SQ SCH ×4 (11:35→20:34)
--- NOTE | 2017-11-12 11:59 | Psychiatry Progress Note ---
Date of Encounter: 11/12/17 Time of Encounter: 11:52 Subjective Interval history: Continues to endorse vague SI/HI but claims SI/HI only intensifies when he is on the street. Claims he came here because he wanted help but will be returning to the street because he has no other options at this point. Refusing all services. Will not consider residential AOD placement. Refusing to consider out of county placement. Shelters here will not take him. No supports. He is linked with mental health services but client admits he is unlikely to follow through with appointments. States he will return to drugs if he goes back to the streets but not engaging in treatment here and refusing all resources that are being offered to him in the community. Client states he plans to go to the [facility] and follow up with AA on his own. Hospitalist saw client yesterday due to out of control blood sugars. Insulin regimen being adjusted. Likely discharge on Tuesday. Review of Systems Constitutional: Denies: fever, chills, weakness, weight change Eyes: Denies: eye pain, vision change Ears, Nose, Throat: Denies: ear pain, throat pain, dental pain, hearing loss, congestion Cardiovascular: Denies: chest pain, palpitations, dyspnea on exertion Respiratory: Denies: cough, dyspnea, wheezes Gastrointestinal: Denies: abdominal pain, nausea, vomiting, diarrhea, constipation Musculoskeletal: Denies: joint swelling, joint pain Neurological: Denies: headache, weakness, numbness, memory loss Psychiatric: Reports: irritability, mood swings Objective: Exam Patient orientation: Yes Person, Yes Time, Yes Place Level of alertness: Alert Patient appearance: Appropriate Behavior: calm, cooperative Psychomotor activity: Normal Eye contact: Maintains Eye Contact Mood description: Depressed Affect description: congruent with mood, full range Speech pattern: Normal rate, Normal rhythm, Normal tone Speech volume: Normal Thought process: Linear Thought content: Yes Suicidal ideation, Yes Homicidal ideation Perceptual disturbances: No Auditory hallucinations, No Visual hallucinations Judgment: Poor Insight: Minimal Results - Vital Signs Vital Signs: Temp Pulse Resp BP 98.1 F 90 20 100/62 11/12/17 09:00 11/12/17 09:00 11/12/17 09:00 11/12/17 09:00 - Labs Labs: Laboratory Results - last 24 hr 11/11/17 11/11/17 11/12/17 16:33 20:32 07:59 POC Glucose 432 H* 257 H 118 H 11/12/17 11:27 POC Glucose 222 H Assessment and Plan (1) Major depressive disorder, recurrent severe without psychotic features Current visit: No Status: Acute Plan: Continue hospitalization, Close observation, Suicide Precautions per unit protocol, Encourage participation in unit milieu, Group Therapy, Monitor sleep, Monitor appetite Risks, benefits, side effects, alternatives discussed w/pt: Yes Patient agreeable to treatment: Yes (2) IV drug abuse Current visit: Yes Status: Acute Plan: Continue hospitalization, Close observation, Suicide Precautions per unit protocol, Encourage participation in unit milieu, Group Therapy, Monitor sleep, Monitor appetite Risks, benefits, side effects, alternatives discussed w/pt: Yes Patient agreeable to treatment: Yes Consult Discharge Plan - Plan Referrals: Self, Refind [Other] - 11/23/17 12:30 pm (You will see Sylvia Swan on 2016 at 12:30 PM. This appointment is for assessment for Suboxone treatment. You must not arrive late to this appointment. You must also have your insurance card and photo ID or you will not be seen.) [facility] [Outside] - 11/15/17 10:00 am (The above appointment is with Faith Holt for outpatient mental health and substance abuse counseling services. You will also see Filomena Hahn for outpatient psychiatric assessment and medication management services on 12/13/2016 at 8:30 AM.) Lenin Ortega DO [Resident] - 11/29/17 1:00 pm (The above appointment is with Lenin Ortega for primary health care and medication management services. Please arrive 10 minutes early to complete the check-in process. Please also bring your insurance card, photo ID, and all medications in their original bottles to this appointment. If you are unable to keep this appointment, 24 hour business notice of cancellation is expected. The above appointment(s) reflects first availability. You may contact the office regularly to check for cancellations that may allow you to be seen sooner.)
--- NOTE | 2017-11-12 17:16 | Event Note ---
Date of Encounter: 11/12/17 Time of Encounter: 17:13 Reviewed patient's blood glucose recordings today. Blood sugars are better controlled today. His blood sugar this morning was 118. I decreased his pain meal insulin dosage to low correctional sliding scale. His blood sugars have since persistently been in the 200s. As such I recommend increasing his coverage to medium correctional scale. We will continue to follow blood sugars during his stay here.
[2017-11-12] MEDS: traMADol 50 MG TABLET PO PRN (20:32)
[2017-11-13] MEDS: Gabapentin 400 MG CAPSULE PO SCH ×3 (08:10→21:52)
[2017-11-13] MEDS: tiZANidine 4 MG TABLET PO SCH ×3 (08:10→21:48)
[2017-11-13] MEDS: Insulin LISPRO 300 UNITS/3 ML VIAL SQ SCH ×4 (08:11→21:09)
[2017-11-13] MEDS: Insulin NPH/REG 70/30 100 UNIT/ML (x5UNIT) SQ SCH ×4 (08:12→21:10)
--- NOTE | 2017-11-13 11:06 | Psychiatry Progress Note ---
Date of Encounter: 11/13/17 Time of Encounter: 10:59 Subjective Interval history: Client likes to say things for shock value. Talked about finding the woman he believes killed his father and cutting her up into little pieces. Also talked about "being a man" and killing anyone who would harm a child. Full of bravado. Has no plans for after discharge. Refusing all services. Won't consider residential rehab. Won't consider an out of county placement. Not welcome in shelters here. Plan was to discharge client tomorrow. 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 Would recommend sticking to the discharge plan of tomorrow. Client is not endorsing SI or HI. Talks extensively about what he would do to people if they crossed him some way but he has no specific target in mind. Woman he believes killed his father has left the state and he has no idea where she is. Review of Systems Constitutional: Denies: fever, chills, weakness, weight change Eyes: Denies: eye pain, vision change Ears, Nose, Throat: Denies: ear pain, throat pain, dental pain, hearing loss, congestion Cardiovascular: Denies: chest pain, palpitations, dyspnea on exertion Respiratory: Denies: cough, dyspnea, wheezes Gastrointestinal: Denies: abdominal pain, nausea, vomiting, diarrhea, constipation Musculoskeletal: Denies: joint swelling, joint pain Neurological: Denies: headache, weakness, numbness, memory loss Psychiatric: Reports: irritability, mood swings Objective: Exam Patient orientation: Yes Person, Yes Time, Yes Place Level of alertness: Alert Patient appearance: Appropriate, Well Groomed Behavior: calm, cooperative Psychomotor activity: Normal Eye contact: Maintains Eye Contact Mood description: Depressed Affect description: full range Speech pattern: Normal rate, Normal rhythm, Normal tone Speech volume: Normal Thought process: Linear Thought content: No Suicidal ideation, No Homicidal ideation, No Overt delusions Perceptual disturbances: No Auditory hallucinations, No Visual hallucinations Judgment: Limited Insight: Minimal Results - Vital Signs Vital Signs: Temp Pulse Resp BP 97.4 F L 98 18 112/71 11/13/17 09:00 11/13/17 09:00 11/13/17 09:00 11/13/17 09:00 - Labs Labs: Laboratory Results - last 24 hr 11/12/17 11/12/17 11/12/17 11:27 16:34 20:31 POC Glucose 222 H 208 H 283 H 11/13/17 07:53 POC Glucose 301 H Assessment and Plan (1) Major depressive disorder, recurrent severe without psychotic features Current visit: No Status: Acute Plan: Continue hospitalization, Close observation, Suicide Precautions per unit protocol, Encourage participation in unit milieu, Group Therapy, Monitor sleep, Monitor appetite Risks, benefits, side effects, alternatives discussed w/pt: Yes Patient agreeable to treatment: Yes (2) IV drug abuse Current visit: Yes Status: Acute Plan: Continue hospitalization, Close observation, Suicide Precautions per unit protocol, Encourage participation in unit milieu, Group Therapy, Monitor sleep, Monitor appetite Risks, benefits, side effects, alternatives discussed w/pt: Yes Patient agreeable to treatment: Yes (3) Antisocial personality disorder Current visit: Yes Status: Acute Plan: Continue hospitalization, Close observation, Suicide Precautions per unit protocol, Encourage participation in unit milieu, Group Therapy, Monitor sleep, Monitor appetite Consult Discharge Plan - Plan Referrals: Self, Refind [Other] - 11/23/17 12:30 pm (You will see Sylvia Swan on 2016 at 12:30 PM. This appointment is for assessment for Suboxone treatment. You must not arrive late to this appointment. You must also have your insurance card and photo ID or you will not be seen.) [facility] [Outside] - 11/15/17 10:00 am (The above appointment is with Faith Holt for outpatient mental health and substance abuse counseling services. You will also see Filomena Hahn for outpatient psychiatric assessment and medication management services on 12/13/2016 at 8:30 AM.) Lenin Ortega DO [Resident] - 11/29/17 1:00 pm (The above appointment is with Lenin Ortega for primary health care and medication management services. Please arrive 10 minutes early to complete the check-in process. Please also bring your insurance card, photo ID, and all medications in their original bottles to this appointment. If you are unable to keep this appointment, 24 hour business notice of cancellation is expected. The above appointment(s) reflects first availability. You may contact the office regularly to check for cancellations that may allow you to be seen sooner.)
--- NOTE | 2017-11-13 14:44 | Internal Med Progress Note ---
Date of Encounter: 11/13/17 Time of Encounter: 13:20 - Assessment and plan (1) Diabetes Current Visit: Yes Status: Chronic Assessment and plan: Blood sugars are better controlled compared to prior 2 days. Remain greater than 200. We will increase Novolin 70/30 dose. Continue sliding scale coverage at current levels. Continue to monitor blood sugars. Qualifiers: Diabetes mellitus type: type 1 Diabetes mellitus complication status: with hyperglycemia Qualified Code(s): E10.65 - Type 1 diabetes mellitus with hyperglycemia - Subjective Interval history: Patient is doing well at this time. Denies any medical complaints. He says that his blood sugars have always been in the 200s. At home, Usually calls his family member who has diabetes and asked him what to do in his blood sugars go high and increase his insulin dose based on the recommendations. No nausea or vomiting. - Constitutional Vitals: Temp Pulse Resp BP 97.4 F L 98 18 112/71 11/13/17 09:00 11/13/17 09:00 11/13/17 09:00 11/13/17 09:00 General appearance: Present: A&O X 3, no acute distress, answers questions appropriately - Respiratory Respiratory exam: Absent: respiratory distress, tachypnea - Neurological Exam Neurological exam: Present: alert, oriented X3, no focal deficits. Absent: facial droop, speech deficit - VTE Reasons for not Prescribing Prophylaxis: Treatment not Indicated - Low risk for VTE Consult Discharge Plan - Plan Referrals: Self, Refind [Other] - 11/23/17 12:30 pm (You will see Sylvia Swan on 2016 at 12:30 PM. This appointment is for assessment for Suboxone treatment. You must not arrive late to this appointment. You must also have your insurance card and photo ID or you will not be seen.) [facility] [Outside] - 11/15/17 10:00 am (The above appointment is with Faith Holt for outpatient mental health and substance abuse counseling services. You will also see Filomena Hahn for outpatient psychiatric assessment and medication management services on 12/13/2016 at 8:30 AM.) Lenin Ortega DO [Resident] - 11/29/17 1:00 pm (The above appointment is with Lenin Ortega for primary health care and medication management services. Please arrive 10 minutes early to complete the check-in process. Please also bring your insurance card, photo ID, and all medications in their original bottles to this appointment. If you are unable to keep this appointment, 24 hour business notice of cancellation is expected. The above appointment(s) reflects first availability. You may contact the office regularly to check for cancellations that may allow you to be seen sooner.)
[2017-11-13] MEDS: traMADol 50 MG TABLET PO PRN (17:46)
[2017-11-14] MEDS: Insulin LISPRO 300 UNITS/3 ML VIAL SQ SCH ×2 (07:53→11:37)
[2017-11-14] MEDS: Insulin NPH/REG 70/30 100 UNIT/ML (x5UNIT) SQ SCH (07:55)
[2017-11-14] MEDS: Gabapentin 400 MG CAPSULE PO SCH (08:32)
[2017-11-14] MEDS: tiZANidine 4 MG TABLET PO SCH (08:32)
[2017-11-14 08:54] VITALS: BP 120/76
--- NOTE | 2017-11-14 12:18 | Discharge Summary ---
Date of Encounter: 11/14/17 Time of Encounter: 10:00 Diagnosis - Discharge Diagnosis (1) Major depressive disorder, recurrent severe without psychotic features Priority: Primary Status: Acute (2) Antisocial personality disorder Priority: Secondary Status: Acute Medications - Discharge Medications Prescriptions: hydrOXYzine pamoate [HydrOXYzine Pamoate] 25 mg PO TID PRN #90 capsule PRN Reason: Anxiety Quetiapine Fumarate [Seroquel] 600 mg PO HS #60 tablet Quetiapine Fumarate [Seroquel] 600 mg PO HS #60 tablet Insulin NPH Hum/Reg Insulin Hm [Novolin 70-30 100 Unit/ml Vial] 15 unit SQ HS [History] Phenytoin ER [Dilantin ER] 100 mg PO TID 09/25/17 [History] Insulin NPH Hum/Reg Insulin Hm [Novolin 70-30 100 Unit/ml Vial] 22 unit SQ QAM # 1 vial 09/27/17 [Rx] Gabapentin [Neurontin] 800 mg PO TID 10/24/17 [History] Quetiapine Fumarate [Seroquel] 600 mg PO HS #60 tablet 11/14/17 [Rx] Quetiapine Fumarate [Seroquel] 600 mg PO HS #60 tablet 11/14/17 [Rx] hydrOXYzine pamoate [HydrOXYzine Pamoate] 25 mg PO TID PRN #90 capsule 11/14/17 [Rx] 3 Allergy/AdvReac Type Severity Reaction Status Date / Time diphenhydramine Allergy Intermediate See Verified 10/24/17 22:01 [From Benadryl] Comments insulin glargine Allergy Blister Verified 10/24/17 22:01 [From Lantus] Provider Date of admission: 11/08/17 17:45 Primary care physician: PCP NONE Consults: 11/10/17 11:43 Consult to Hospitalist [CONS] Routine Consulting Provider: Sergio De León Reason for Consult: Uncontrolled DM Call Completed: Yes Discharging clinician: Xochitl Real Assessment and Plan - Patient/Caregiver Discharge Instructions Activity: resume usual activities as tolerated Diet: regular diet - Follow up Plan Follow up with: Self, Refind [Other] - 11/23/17 12:30 pm (You will see Sylvia Swan on 2016 at 12:30 PM. This appointment is for assessment for Suboxone treatment. You must not arrive late to this appointment. You must also have your insurance card and photo ID or you will not be seen.) [facility] [Outside] - 11/15/17 10:00 am (The above appointment is with Faith Holt for outpatient mental health and substance abuse counseling services. You will also see Filomena Hahn for outpatient psychiatric assessment and medication management services on 12/13/2016 at 8:30 AM.) Lenin Ortega DO [Resident] - 11/29/17 1:00 pm (The above appointment is with Lenin Ortega for primary health care and medication management services. Please arrive 10 minutes early to complete the check-in process. Please also bring your insurance card, photo ID, and all medications in their original bottles to this appointment. If you are unable to keep this appointment, 24 hour business notice of cancellation is expected. The above appointment(s) reflects first availability. You may contact the office regularly to check for cancellations that may allow you to be seen sooner.) Functional capacity at discharge: independent ambulation Overall status at discharge: Stable Disposition: Home, Self-Care Hospital Course Hospital course: Mr. Lemus is a 32 year old male with a history of depression and antisocial personality disorder as well as substance abuse who presented to the hospital with depression. He was admitted to for psychiatric stabilization. Patient was incorporated into therapeutic milieu and group and individual as well as recreational therapy. He was also offered psychoeducational materials and supportive therapy. He was placed on suicide precautions and close observation for your protocol. Patient was started on Seroquel for his mood. He has used this medication in the past. Patient was not interested in complying with treatment recommendations and verbalize to staff that he did not want outpatient follow-up. He was willing to keep an appointment for Suboxone at the end of this month. Patient was offered numerous options for substance abuse as well as mental health follow-up and he declined. At the time of discharge he did report improved mood and sleep. He denied suicidal or homicidal ideation, intent, or plan. Secondary to his inability to comply with recommendations and offer numbers that we could call to confirm he was discharged from the hospital without a place to stay. Patient was agreeable to this plan and states he has "people I can call." Time spent discussing smoking cessation with patient: 3 to 10 minutes - Time Spent with Patient Total time spent providing and/or coordinating discharge services: Greater than 30 minutes Quality - Multiple Antipsychotics Patient discharged on 2 or more antipsychotic medications: No Procedures - Procedures Procedures: Medication Management, Crisis Stabilization, Supportive Therapy, Group Therapy, Psychoeducational Therapy Mental Status Exam - Mental Status Exam Patient orientation: Yes Person Level of alertness: Alert Patient appearance: Appropriate Behavior: calm, cooperative Psychomotor activity: Normal Eye contact: Maintains Eye Contact Mood description: Euthymic/stable Affect description: congruent with mood Speech pattern: Normal rate, Normal rhythm, Normal tone Speech Volume: Normal Thought process: Intact Thought Content: Yes Intact, No Suicidal ideation, No Homicidal ideation Perceptual Disturbances: No Auditory hallucinations, No Visual hallucinations Judgment: Limited Insight: Minimal
== END 2017-11-14 12:48 | disposition home or self-care (01) | DRG 751 ==
LOC: 1ANU 17:45
PROVIDERS: ADMIT Psychiatry & Neurology Forensic Psychiatry; ATTEND Psychiatry & Neurology Forensic Psychiatry

== ENCOUNTER 2017-12-03 08:23 | Inpatient (IN) ==
[2017-12-03] MEDS: Ondansetron 4 MG/2 ML VIAL IVP ONE ×2 (08:37→11:35)
[2017-12-03] MEDS: 0.9 % Sodium Chloride 1,000 ML IVC ONE ×4 (08:37→11:35)
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
[2017-12-03 08:49] LABS: Basophils # 0.1 K/mcL (0.0-0.2); Basophils % 0.3 %; Hematocrit 44.8 % (37.5-50.1); Immature Granulocytes % 0.8 % (0-4); Lymphocytes # 1.3 K/mcL (0.6-4.6); Lymphocytes % 7.7 %; Mean Corpuscular HGB Conc 31.3 g/dL (31.6-35.5); Mean Corpuscular Hemoglobin 28.7 pg (28.0-33.3); Mean Corpuscular Volume 91.8 fL (83.0-100.0); Mean Platelet Volume 8.9 fL (9.4-12.4); Monocytes # 0.6 K/mcL (0.0-1.3); Monocytes % 3.9 %; Neutrophils # 14.1 K/mcL (1.6-8.9); Platelet Count 433 K/mcL (140-400); Red Blood Count 4.88 M/mcL (4.19-5.50); Red Cell Distribution Width 13.7 % (11.5-14.5); Segmented Neutrophils % 87.3 %
[2017-12-03 08:58] LABS: VBG HCO3 6 mEq/L (21-27); VBG PCO2 17 mmHg (41-51); VBG PH 7.16 pH Units (7.32-7.42); VBG PO2 156 mmHg (25-50)
[2017-12-03] MEDS ORDERED: *HR* Dextrose 50 % in Water (Syg) 50 ML SYRINGE IVP PRN (09:14)
[2017-12-03 09:21] LABS: Alanine Aminotransferase 83 Units/L (7-52); Albumin 4.3 g/dL (3.5-5.7); Albumin/Globulin Ratio 1.5 (1.1-2.2); Alkaline Phosphatase 120 Units/L (34-104); Aspartate Amino Transferase 77 Units/L (13-39); BUN/Creatinine Ratio 17 (6-26); Bilirubin,Total 0.5 mg/dL (0.3-1.0); Blood Urea Nitrogen 19 mg/dL (6-20); Carbon Dioxide 5 mEq/L (23-29); Chloride 89 mEq/L (98-107); Globulin 2.8 g/dL (2.4-3.5); Glucose 740 mg/dL (70-105); Lipase 4 Units/L (11-82); Osmolality,Calculated 310 (280-300); Potassium 4.3 mEq/L (3.5-5.1); Sodium 131 mEq/L (136-145); Total Protein 7.1 g/dL (6.4-8.9); eGFR For African Americans > 60 (> 60); eGFR For Non-African Americans > 60 (> 60)
[2017-12-03] MEDS: Promethazine 25 MG in 0.9 % Sodium Chloride 50 ML IVPB ONE ×2 (09:29→11:35)
[2017-12-03] MEDS ORDERED: Insulin Human Regular 10 UNIT in 0.9 % Sodium Chloride 10 ML IV ONE (09:41)
[2017-12-03 09:47] LABS: Ethanol < 10 mg/dL (0-10)
--- NOTE | 2017-12-03 09:48 | Emergency Department Note ---
START Narrative - START START: I examined this patient and my medical decision-making was reviewed with the PA. I agree with the documented findings, disposition and treatment plan as described except to the extent set forth below. 32-year-old male presented with weakness and vomiting. Patient was found to be in diabetic ketoacidosis. History of same in the past. Patient's pH is 7.1. His bicarbonate less than 5. All consistent with dehydration secondary to DKA. We will start the patient insulin drip. Fluid resuscitation with IV fluids. Suspect noncompliance as exacerbating factor. He denies any fevers. No cough. No diarrhea. No urinary symptoms other than some polyuria. Critical care time spent was 35 minutes spent in medical management of fluid resuscitation and treatment of diabetic ketoacidosis with insulin drip.
[2017-12-03] MEDS: Insulin Human Regular 100 UNIT in 0.9 % Sodium Chloride 100 ML IVC SCH ×2 (09:59→11:35)
[2017-12-03 10:27] LABS: Bilirubin,Urine Negative (Negative); Blood,Urine Negative (Negative); Clarity,Urine Clear (Clear); Color,Urine Yellow (Yellow); Glucose,Urine (UA) >=1000 mg/dL (Normal); Ketones,Urine 80 mg/dL (Negative); Leukocyte Esterase,Urine Negative (Negative); Nitrite,Urine Negative (Negative); PH,Urine 5.5 pH Units (5.0-8.0); Protein,Urine Trace mg/dL (Neg-Trace); Specific Gravity,Urine > 1.030 (1.010-1.025); Urobilinogen,Urine Normal (Normal)
[2017-12-03 10:30] LABS: Bacteria,Urine None Seen per hpf (None-Few); Hyaline Casts,Urine None Seen per lpf (None-Few); RBC,Urine 0-3 per hpf (0-3); Squamous Epithelial Cell,Urine None Seen per lpf (None-Few); WBC,Urine 0-3 per hpf (0-3)
[2017-12-03 10:39] LABS: Amphetamine Screen,Urine Positive ng/mL (Cutoff=1000); Barbiturate Screen,Urine Negative ng/mL (Cutoff=200); Benzodiazepines Screen,Urine Negative ng/mL (Cutoff=200); Cannabinoid Screen,Urine Negative ng/mL (Cutoff = 50); Cocaine Screen,Urine Negative ng/mL (Cutoff= 300); Opiate Screen,Urine Negative ng/mL (Cutoff=300); Phencyclidine Screen,Urine Negative ng/mL (Cutoff=25)
[2017-12-03] MEDS ORDERED: 0.9 % Sodium Chloride 1,000 ML IVC ONE (10:45)
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
[2017-12-03] MEDS ORDERED: 0.9 % Sodium Chloride 1,000 ML IVC SCH (11:00)
[2017-12-03 12:50] LABS: VBG HCO3 14 mEq/L (21-27); VBG PCO2 28 mmHg (41-51); VBG PH 7.31 pH Units (7.32-7.42); VBG PO2 142 mmHg (25-50)
[2017-12-03 12:53] LABS: BUN/Creatinine Ratio 16 (6-26); Blood Urea Nitrogen 16 mg/dL (6-20); Calcium 8.3 mg/dL (8.6-10.3); Carbon Dioxide 13 mEq/L (23-29); Chloride 100 mEq/L (98-107); Glucose 338 mg/dL (70-105); Osmolality,Calculated 286 (280-300); Potassium 3.8 mEq/L (3.5-5.1); Sodium 131 mEq/L (136-145); eGFR For African Americans > 60 (> 60); eGFR For Non-African Americans > 60 (> 60)
[2017-12-03 12:59] LABS: Beta-Hydroxybutyric Acid > 2.00 mmol/L (0.02-0.27)
[2017-12-03] MEDS ORDERED: 0.9 % Sodium Chloride w KCl 20 MEQ/1,000 ML MLS IVC SCH (13:00)
[2017-12-03] MEDS: Ondansetron 4 MG/2 ML VIAL IVP PRN (14:24)
[2017-12-03] MEDS: D5% in 0.45% NACL w KCl 20 MEQ/1,000 ML MLS IVC SCH ×3 (15:40→23:57)
[2017-12-03] MEDS: Gabapentin 300 MG CAPSULE PO SCH ×2 (15:49→21:15)
[2017-12-03] MEDS ORDERED: Insulin Human Regular 100 UNIT in 0.9 % Sodium Chloride 100 ML IVC SCH (16:00)
[2017-12-03 16:11] LABS: VBG HCO3 21 mEq/L (21-27); VBG PCO2 37 mmHg (41-51); VBG PH 7.36 pH Units (7.32-7.42); VBG PO2 109 mmHg (25-50)
[2017-12-03 16:15] LABS: Beta-Hydroxybutyric Acid 1.04 mmol/L (0.02-0.27)
[2017-12-03 16:22] LABS: BUN/Creatinine Ratio 14 (6-26); Blood Urea Nitrogen 13 mg/dL (6-20); Calcium 8.3 mg/dL (8.6-10.3); Carbon Dioxide 20 mEq/L (23-29); Chloride 106 mEq/L (98-107); Glucose 121 mg/dL (70-105); Osmolality,Calculated 281 (280-300); Potassium 3.7 mEq/L (3.5-5.1); Sodium 135 mEq/L (136-145); eGFR For African Americans > 60 (> 60); eGFR For Non-African Americans > 60 (> 60)
[2017-12-03] MEDS: Famotidine 20 MG/2 ML VIAL IVP SCH (18:02)
[2017-12-03] MEDS: *HR* Heparin 5,000 UNIT/ML VIAL SQ SCH (18:03)
[2017-12-03 20:00] LABS: Beta-Hydroxybutyric Acid 0.89 mmol/L (0.02-0.27)
[2017-12-03 20:05] LABS: VBG HCO3 22 mEq/L (21-27); VBG PCO2 40 mmHg (41-51); VBG PH 7.35 pH Units (7.32-7.42); VBG PO2 134 mmHg (25-50)
[2017-12-03 20:13] LABS: BUN/Creatinine Ratio 13 (6-26); Blood Urea Nitrogen 11 mg/dL (6-20); Carbon Dioxide 21 mEq/L (23-29); Chloride 104 mEq/L (98-107); Glucose 202 mg/dL (70-105); Osmolality,Calculated 281 (280-300); Sodium 133 mEq/L (136-145); eGFR For African Americans > 60 (> 60); eGFR For Non-African Americans > 60 (> 60)
[2017-12-04 00:56] LABS: BUN/Creatinine Ratio 13 (6-26); Blood Urea Nitrogen 10 mg/dL (6-20); Calcium 8.2 mg/dL (8.6-10.3); Carbon Dioxide 23 mEq/L (23-29); Chloride 106 mEq/L (98-107); Glucose 177 mg/dL (70-105); Osmolality,Calculated 279 (280-300); Potassium 3.6 mEq/L (3.5-5.1); Sodium 133 mEq/L (136-145); eGFR For African Americans > 60 (> 60); eGFR For Non-African Americans > 60 (> 60)
[2017-12-04 01:24] LABS: VBG HCO3 24 mEq/L (21-27); VBG PCO2 44 mmHg (41-51); VBG PH 7.34 pH Units (7.32-7.42); VBG PO2 168 mmHg (25-50)
[2017-12-04 04:18] LABS: Basophils % 0.3 %; Eosinophils % 0.3 %; Hematocrit 35.6 % (37.5-50.1); Immature Granulocytes % 0.4 % (0-4); Lymphocytes % 24.3 %; Mean Corpuscular Hemoglobin 28.4 pg (28.0-33.3); Mean Corpuscular Volume 88.8 fL (83.0-100.0); Monocytes # 0.7 K/mcL (0.0-1.3); Monocytes % 9.8 %; Neutrophils # 4.4 K/mcL (1.6-8.9); Platelet Count 257 K/mcL (140-400); Red Blood Count 4.01 M/mcL (4.19-5.50); Red Cell Distribution Width 13.6 % (11.5-14.5); Segmented Neutrophils % 64.9 %
[2017-12-04 04:22] LABS: Lymphocytes # 1.7 K/mcL (0.6-4.6)
[2017-12-04 04:23] LABS: Hemoglobin 11.4 g/dL (12.9-16.9)
[2017-12-04 04:41] LABS: BUN/Creatinine Ratio 13 (6-26); Blood Urea Nitrogen 9 mg/dL (6-20); Calcium 8.2 mg/dL (8.6-10.3); Carbon Dioxide 22 mEq/L (23-29); Chloride 106 mEq/L (98-107); Glucose 178 mg/dL (70-105); Magnesium 1.7 mg/dL (1.6-2.6); Osmolality,Calculated 279 (280-300); Potassium 3.3 mEq/L (3.5-5.1); Sodium 133 mEq/L (136-145); eGFR For African Americans > 60 (> 60); eGFR For Non-African Americans > 60 (> 60)
[2017-12-04] MEDS: D5% in 0.45% NACL w KCl 20 MEQ/1,000 ML MLS IVC SCH (05:06)
[2017-12-04] MEDS: *HR* Heparin 5,000 UNIT/ML VIAL SQ SCH ×2 (05:06→16:42)
[2017-12-04] MEDS: Famotidine 20 MG/2 ML VIAL IVP SCH (05:06)
[2017-12-04] MEDS ORDERED: D5% in Water 1,000 ML IVC PRN (08:10)
[2017-12-04] MEDS ORDERED: *HR* Dextrose 50 % in Water (Syg) 50 ML SYRINGE IVP PRN (08:10)
[2017-12-04] MEDS: Gabapentin 300 MG CAPSULE PO SCH ×3 (08:14→21:25)
[2017-12-04] MEDS: Insulin NPH/REG 70/30 100 UNIT/ML (x5UNIT) SQ SCH (08:22)
[2017-12-04] MEDS: Insulin LISPRO 300 UNITS/3 ML VIAL SQ SCH ×2 (11:32→16:43)
[2017-12-04] MEDS ORDERED: traMADol 50 MG TABLET PO PRN (13:13)
[2017-12-04] MEDS ORDERED: hydrOXYzine pamoate 25 MG CAPSULE PO PRN (13:13)
--- NOTE | 2017-12-04 13:30 | Internal Med Progress Note ---
Date of Encounter: 12/04/17 Time of Encounter: 13:00 - Assessment and plan (1) DKA (diabetic ketoacidoses) Current Visit: Yes Status: Resolved Assessment and plan: Acidosis has resolved. Currently on his home regimen of 70/30. Not eating much at this time due to abdominal pain Monitoring glucose and covering as needed. Qualifiers: Diabetes mellitus type: type 1 Diabetes mellitus complication detail: without coma Qualified Code(s): E10.10 - Type 1 diabetes mellitus with ketoacidosis without coma (2) Abdominal pain Current Visit: Yes Status: Acute Assessment and plan: Has RUQ pain. Says he has hx of gallstones. Will check CT abd/pel for further evaluation. Qualifiers: Abdominal location: right upper quadrant Qualified Code(s): R10.11 - Right upper quadrant pain (3) Hepatitis C Current Visit: No Status: Chronic Assessment and plan: Pt with hx of Hep C. Liver function elevated. 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 Follow clinically. (5) Noncompliance with medications Current Visit: No Status: Chronic Assessment and plan: Chronic issue (6) Tobacco abuse Current Visit: No Status: Chronic Assessment and plan: Cessation counselling. - Subjective Interval history: Mr. Lemus is currently admitted for acute DKA due to medication noncompliance. He remains moderate to high risk due to potential for worsening clinical status. Mr Lemus is complaining of significant abdominal pain. Says he has history of gallstones and that no one will take out his gallbladder. No fever or chills. Not eating much. Off insulin drip. BS has been OK at this time. Has hx of Hep C and polysubstance abuse. - Constitutional Vitals: Temp Pulse Resp BP Pulse Ox 97.6 F 93 20 123/82 100 12/04/17 10:28 12/04/17 10:28 12/04/17 10:28 12/04/17 10:28 12/04/17 10:28 General appearance: Present: A&O X 3, answers questions appropriately - Head Head exam: Present: atraumatic, normocephalic - Eye Eye exam: Present: EOMI, conjuntiva pink - ENT ENT exam: Present: mucous membranes dry - Respiratory Respiratory exam: Present: CTAB. Absent: rales, rhonchi, wheezes - Cardiovascular Cardiovascular exam: Present: RRR. Absent: tachycardia - GI/Abdominal GI/Abdominal exam: Present: normal bowel sounds, soft, tenderness Additional comments: Tender in epigastric RUQ area. No peritoneal signs. - Extremities Exam Extremities exam: Present: warm. Absent: tenderness - Neurological Exam Neurological exam: Present: alert, oriented X3, no focal deficits - Psychiatric Psychiatric exam: Present: depressed, flat affect. Absent: homicidal ideation, suicidal ideation - Skin Skin exam: Present: dry, warm Internal Medicine: Result - Labs CBC & Chem 7: 12/04/17 03:26 12/04/17 03:26 Labs: Short CBC 12/04/17 Range/Units 03:26 WBC 6.8 D (4.3-11.1) K/mcL Hgb 11.4 L D (12.9-16.9) g/dL Hct 35.6 L (37.5-50.1) % Plt Count 257 (140-400) K/mcL Neutrophils # 4.4 (1.6-8.9) K/mcL BMP 12/03/17 12/03/17 12/04/17 15:50 19:31 00:26 Sodium 135 L 133 L 133 L Potassium 3.7 4.0 3.6 Chloride 106 104 106 Carbon Dioxide 20 L 21 L 23 BUN 13 11 10 Creatinine 0.94 0.82 0.80 Glucose 121 H 202 H 177 H Calcium 8.3 L 8.0 L 8.2 L 12/04/17 03:26 Sodium 133 L Potassium 3.3 L Chloride 106 Carbon Dioxide 22 L BUN 9 Creatinine 0.70 Glucose 178 H Calcium 8.2 L - Impressions Impressions Chest X-Ray 12/03/17 10:49 IMPRESSION: No acute process. D/ / Abram Murillo MD / Abram Murillo MD Interpreting Provider: Abram Murillo MD Consult Discharge Plan - Plan Referrals: NONE,PCP [Primary Care Provider] -
[2017-12-04 14:09] LABS: Alanine Aminotransferase 67 Units/L (7-52); Albumin 3.1 g/dL (3.5-5.7); Albumin/Globulin Ratio 1.4 (1.1-2.2); Alkaline Phosphatase 82 Units/L (34-104); Aspartate Amino Transferase 88 Units/L (13-39); BUN/Creatinine Ratio 8 (6-26); Bilirubin,Direct 0.1 mg/dL (0.0-0.2); Bilirubin,Indirect 0.3 mg/dL (0.0-1.2); Bilirubin,Total 0.4 mg/dL (0.3-1.0); Blood Urea Nitrogen 6 mg/dL (6-20); Calcium 8.3 mg/dL (8.6-10.3); Carbon Dioxide 24 mEq/L (23-29); Chloride 106 mEq/L (98-107); Globulin 2.2 g/dL (2.4-3.5); Glucose 184 mg/dL (70-105); Osmolality,Calculated 280 (280-300); Potassium 3.9 mEq/L (3.5-5.1); Sodium 134 mEq/L (136-145); Total Protein 5.3 g/dL (6.4-8.9); eGFR For African Americans > 60 (> 60); eGFR For Non-African Americans > 60 (> 60)
[2017-12-04] MEDS: Ondansetron 4 MG/2 ML VIAL IVP PRN (14:27)
[2017-12-04] MEDS ORDERED: Insulin LISPRO 300 UNITS/3 ML VIAL SQ SCH (21:00)
[2017-12-04] MEDS ORDERED: Insulin NPH/REG 70/30 100 UNIT/ML (x5UNIT) SQ SCH (21:00)
[2017-12-05 04:24] LABS: Hematocrit 33.9 % (37.5-50.1); Mean Corpuscular HGB Conc 32.4 g/dL (31.6-35.5); Mean Corpuscular Hemoglobin 28.8 pg (28.0-33.3); Mean Corpuscular Volume 88.7 fL (83.0-100.0); Mean Platelet Volume 9.1 fL (9.4-12.4); Platelet Count 193 K/mcL (140-400); Red Blood Count 3.82 M/mcL (4.19-5.50); Red Cell Distribution Width 13.6 % (11.5-14.5)
[2017-12-05 04:41] LABS: BUN/Creatinine Ratio 14 (6-26); Blood Urea Nitrogen 9 mg/dL (6-20); Calcium 8.4 mg/dL (8.6-10.3); Carbon Dioxide 30 mEq/L (23-29); Chloride 104 mEq/L (98-107); Glucose 105 mg/dL (70-105); Magnesium 1.6 mg/dL (1.6-2.6); Osmolality,Calculated 283 (280-300); Potassium 3.6 mEq/L (3.5-5.1); Sodium 137 mEq/L (136-145); eGFR For African Americans > 60 (> 60); eGFR For Non-African Americans > 60 (> 60)
[2017-12-05] MEDS: *HR* Heparin 5,000 UNIT/ML VIAL SQ SCH (05:12)
[2017-12-05] MEDS: Gabapentin 300 MG CAPSULE PO SCH ×2 (08:46→16:03)
[2017-12-05] MEDS: Insulin LISPRO 300 UNITS/3 ML VIAL SQ SCH ×3 (08:46→17:15)
[2017-12-05] MEDS: Insulin NPH/REG 70/30 100 UNIT/ML (x5UNIT) SQ SCH (08:46)
[2017-12-05] MEDS ORDERED: D5% in 0.9% NACL 1,000 ML IVC SCH (12:45)
--- NOTE | 2017-12-05 13:45 | Electrocardiograph Report ---
[facility] Test Date: 2017-12-03 Pat Name: John Lemus Department: 102 Room: 3A56 Gender: M Seismograph Computer: : [id number] Requested By: Vaishali Frances Order Number: [id number] Reading MD: Matt Coronel DO Measurements Intervals [place] Rate: 112 P: 70 WA: 121 QRS: 78 QRSD: 83 T: -50 QT: 343 QTc: 409 Interpretive Statements SINUS TACHYCARDIA MODERATE T-WAVE ABNORMALITY, CONSIDER ANTEROLATERAL ISCHEMIA [-0.1+ mV T WAVE IN V3-V6] MODERATE T-WAVE ABNORMALITY, CONSIDER INFERIOR ISCHEMIA [-0.1+ mV T WAVE IN II/aVF] Electronically Signed On 12-05-2017 13:43:47 EST by Matt Coronel DO
[2017-12-05 16:48] VITALS: BP 124/75
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
== END 2017-12-05 18:35 | disposition home or self-care (01) | DRG 420 ==
LOC: EMEROO 08:23 → 2NNU 10:35 → 3ANU 12-04 19:44
PROVIDERS: ADMIT Hospitalist; ATTEND Internal Medicine

== ENCOUNTER 2018-01-31 21:24 | Inpatient (IN) ==
--- NOTE | 2018-01-31 21:33 | Emergency Department Note ---
Disposition Clinical Impression: Hyperglycemia, Seizure, IVDU (intravenous drug user) Disposition: Still a Patient Referrals: NONE,PCP [Primary Care Provider] - Forms: ED Satisfaction Letter, Work/School Release Time of Disposition: 22:26 General Adult HPI - General Chief complaint: ED General Medical Stated complaint: I got infection in my body from ICE Time Seen by Provider: 01/31/18 21:32 - Related Data Home Medications Medication Instructions Recorded Confirmed Insulin NPH Human Isophane 11 unit SQ QPM 01/23/18 01/23/18 [Novolin N] Insulin NPH Human Isophane 15 unit SQ QAM 01/23/18 01/23/18 [Novolin N] Insulin Regular, Human [Novolin R] 5 unit SQ QPM 01/23/18 01/23/18 Insulin Regular, Human [Novolin R] 7 unit SQ QAM 01/23/18 01/23/18 Quetiapine Fumarate 800 mg PO HS 01/23/18 01/23/18 Venlafaxine HCl [Venlafaxine HCl 75 mg PO DAILY 01/23/18 01/23/18 ER] Previous Rx's Medication Instructions Recorded Gabapentin [Neurontin] 800 mg PO TID #90 tablet 12/05/17 Naproxen 500 mg PO BID PRN #60 tablet 12/05/17 Phenytoin ER [Dilantin ER] 100 mg PO TID #90 capsule 12/05/17 hydrOXYzine pamoate [HydrOXYzine 25 mg PO TID PRN #90 capsule 12/05/17 Pamoate] Allergies Allergy/AdvReac Type Severity Reaction Status Date / Time diphenhydramine Allergy Intermediate See Verified 01/31/18 21:28 [From Benadryl] Comments insulin glargine Allergy Blister Verified 01/31/18 21:28 [From Lantus] Past Medical History - Past Medical History Medical history: Reports: diabetes, hepatitis, seizures Surgical history: Reports: no surgical history Psychiatric history: Reports: prior suicide attempt, previous psychiatric hospitalization - Social History Smoking Status: Current every day smoker Smokeless Tobacco Status: No Alcohol use: Reports: occasionally Drug use: Reports: marijuana, methamphetamine, IV Drug Use Course Vital Signs Temperature 97.5 F L 01/31/18 21:31 Pulse Rate 82 01/31/18 21:31 Respiratory Rate 20 01/31/18 21:31 Blood Pressure 109/78 01/31/18 21:31 O2 Sat by Pulse Oximetry 100 01/31/18 21:31 Temperature 97.5 F L 01/31/18 21:31 Pulse Rate 82 01/31/18 21:31 Respiratory Rate 20 01/31/18 21:31 Blood Pressure 109/78 01/31/18 21:31 O2 Sat by Pulse Oximetry 100 01/31/18 21:31 Oxygen Delivery Oxygen Delivery Room Air Medical Decision Making - Lab Data Lab Results 01/31/18 01/31/18 Range/Units 22:02 22:04 POC Glucose 511 H* 597 H* (58-89) Attestation Statement - Attestation Attestation: I examined this patient and my medical decision-making was reviewed with the Resident Physician. I agree with the documented findings, disposition and treatment plan as described except to the extent set forth below. [id number] time provided Patient states he feels as if he has noninfection throughout his body from "using ice." He admits to active methamphetamine IV drug use. He was sent to the emergency department after witnesses allegedly reported seeing seizure-like activity. The patient takes Dilantin for seizures. He is verbally abusive and a guarded historian upon arrival. He seems easily agitated 22:10: The patient has been intermittently refusing care including refusing fingerstick glucose, blood draw, IV placement, EKG, chest x-ray. He continues to be belligerent and cursing at staff. Both myself and the nurse and the resident have had multiple conversations with him regarding our concern for his health and the need for his allowance of our medical intervention 22:26: Care to be endorsed to at 23:00 pending labs and re-eval
[2018-01-31] MEDS ORDERED: 0.9 % Sodium Chloride 1,000 ML IVC ONE ×2 (21:52→23:10)
--- NOTE | 2018-01-31 21:53 | Emergency Department Note ---
Disposition Clinical Impression: Hyperglycemia, Seizure Disposition: Still a Patient Referrals: NONE,PCP [Primary Care Provider] - Forms: ED Satisfaction Letter, Work/School Release General Adult HPI - General Chief complaint: ED General Medical Stated complaint: I got infection in my body from ICE Time Seen by Provider: 01/31/18 21:32 Source: patient, EMS Mode of arrival: EMS Limitations: altered mental status, other Nursing Notes Reviewed: Yes Vital Signs Reviewed: Yes - History of Present Illness HPI Narrative: 32-year-old male presents to emergency department via EMS with complaint of "I have got an infection in my body from using ice ". Per EMS report, patient has reported drug user and EMS was called for reported withdrawal. He does have a history of seizures but the people whose home he was staying in do not believe he had a seizure. During time of exam, patient is uncooperative and lashing out at hospital staff. He does express that he uses methamphetamine, most recently 2 days ago as well as heroin most recently 5 days ago. He states he has never withdrawn off meth however he has withdrawn off heroin a couple months ago. He states he has had an infection in his body in the past and this feels similar. His symptoms at this time include chills, nausea, bilateral lower extremity pain, nonproductive cough x2 days. He denies any symptoms of fevers, chest pain, shortness of breath. The remainder of the exam is limited secondary to uncooperation. Pain Scale: 0 - Related Data Home Medications Medication Instructions Recorded Confirmed Insulin NPH Human Isophane 11 unit SQ QPM 01/23/18 01/23/18 [Novolin N] Insulin NPH Human Isophane 15 unit SQ QAM 01/23/18 01/23/18 [Novolin N] Insulin Regular, Human [Novolin R] 5 unit SQ QPM 01/23/18 01/23/18 Insulin Regular, Human [Novolin R] 7 unit SQ QAM 01/23/18 01/23/18 Quetiapine Fumarate 800 mg PO HS 01/23/18 01/23/18 Venlafaxine HCl [Venlafaxine HCl 75 mg PO DAILY 01/23/18 01/23/18 ER] Previous Rx's Medication Instructions Recorded Gabapentin [Neurontin] 800 mg PO TID #90 tablet 12/05/17 Naproxen 500 mg PO BID PRN #60 tablet 12/05/17 Phenytoin ER [Dilantin ER] 100 mg PO TID #90 capsule 12/05/17 hydrOXYzine pamoate [HydrOXYzine 25 mg PO TID PRN #90 capsule 12/05/17 Pamoate] Allergies Allergy/AdvReac Type Severity Reaction Status Date / Time diphenhydramine Allergy Intermediate See Verified 01/31/18 21:28 [From Benadryl] Comments insulin glargine Allergy Blister Verified 01/31/18 21:28 [From Lantus] All systems ED: reviewed and negative except as stated. Review of Systems: As Per HPI Limitations: ROS unobtainable due to patients medical condition Past Medical History - Past Medical History Medical history: Reports: diabetes, hepatitis, seizures Surgical history: Reports: no surgical history Psychiatric history: Reports: prior suicide attempt, previous psychiatric hospitalization - Social History Smoking Status: Current every day smoker Smokeless Tobacco Status: No Alcohol use: Reports: occasionally Drug use: Reports: marijuana, methamphetamine, IV Drug Use Physical Exam - General Limitations: altered mental status, other (Uncooperative. Lashes out at staff, cursing refusing blood draws. Poor hygiene) General appearance: alert, in no apparent distress, appears intoxicated - Eye Eye exam: Present: normal appearance, PERRL, EOMI - ENT ENT exam: mucous membranes dry, other (Poor dentition) - Chest Chest inspection: Present: normal inspection, symmetric chest wall rise - Respiratory Respiratory exam: Present: normal lung sounds bilaterally - Cardiovascular Cardiovascular exam: Present: regular rate, normal rhythm, normal heart sounds - Extremities Exam Extremities exam: Present: other (Track grewal on bilateral upper extremity) Course Course Narrative: 32-year-old male brought in by EMS for reported substance abuse. He does freely admit to methamphetamine and heroin use. During time of interview, patient is uncooperative and unwilling to participate in interview, physical exam and is refusing extensive workup. He did agree to one attempt at a blood draw. There is concern for diabetic ketoacidosis given reported blood sugars in the 500s for EMS, as well as seizure activity, possible endocarditis and bacteremia. He is notably nonseptic to this point. We will attempt to obtain further labs of blood cultures, CBC, CMP, Dilantin level, VBG, beta hydroxybutyric acid. We will also attempt a chest x-ray at the patient is cooperative. Vital Signs Temperature 97.5 F L 03/06/18 21:31 Pulse Rate 82 01/31/18 21:31 Respiratory Rate 20 01/31/18 21:31 Blood Pressure 109/78 01/31/18 21:31 O2 Sat by Pulse Oximetry 100 01/31/18 21:31 Temperature 97.5 F L 01/31/18 21:31 Pulse Rate 82 01/31/18 21:31 Respiratory Rate 20 01/31/18 21:31 Blood Pressure 109/78 01/31/18 21:31 O2 Sat by Pulse Oximetry 100 01/31/18 21:31 Oxygen Delivery Oxygen Delivery Room Air Medical Decision Making - MDM Narrative Medical decision making narrative: 32-year-old male presents to emergency department via EMS for possible substance abuse. EMS reports that they were called by friend of patient with concerns of altered mental status. During time of interview and presentation emergency department, patient is being very uncooperative and refusing management and evaluation of his medical problems. He is refusing most blood draws, thorough physical examination, IVs. At this point we are able to ascertain that his vital signs are stable and he has agreed to one blood draw. He is being verbally abusive to staff and not responding to most interview questions. We will obtain what information we can. There is concern with his past medical history as well as presentation for diabetic ketoacidosis, substance abuse/withdrawal, bacteremia with possible endocarditis. Unfortunately at this time due to patient's noncooperation where unable to perform adequate medical care. We are not able to fully diagnose and treat this patient appropriately. - Lab Data Lab Results 01/31/18 01/31/18 Range/Units 22:02 22:04 POC Glucose 511 H* 597 H* (58-89) - EKG Data EKG #1 EKG shows normal: sinus rhythm Rate: normal Rhythm: NSR [place]/QRS: normal When compared to previous EKG there are: previous EKG unavailable Interpretation: normal EKG
[2018-01-31 22:31] LABS: Basophils # 0.1 K/mcL (0.0-0.2); Basophils % 0.5 %; Eosinophils % 0.1 %; Hematocrit 45.1 % (37.5-50.1); Immature Granulocytes % 1.5 % (0-4); Mean Corpuscular HGB Conc 31.9 g/dL (31.6-35.5); Mean Corpuscular Hemoglobin 29.1 pg (28.0-33.3); Mean Corpuscular Volume 91.3 fL (83.0-100.0); Mean Platelet Volume 9.3 fL (9.4-12.4); Monocytes # 0.9 K/mcL (0.0-1.3); Monocytes % 5.2 %; Neutrophils # 14.4 K/mcL (1.6-8.9); Platelet Count 435 K/mcL (140-400); Red Blood Count 4.94 M/mcL (4.19-5.50); Red Cell Distribution Width 13.4 % (11.5-14.5); Segmented Neutrophils % 83.7 %
[2018-01-31 22:32] LABS: Hemoglobin 14.4 g/dL (12.9-16.9); Lymphocytes # 1.6 K/mcL (0.6-4.6)
[2018-01-31 22:51] LABS: Alanine Aminotransferase 32 Units/L (7-52); Albumin 4.8 g/dL (3.5-5.7); Albumin/Globulin Ratio 1.3 (1.1-2.2); Alkaline Phosphatase 171 Units/L (34-104); Aspartate Amino Transferase 27 Units/L (13-39); BUN/Creatinine Ratio 16 (6-26); Bilirubin,Total 0.5 mg/dL (0.3-1.0); Blood Urea Nitrogen 17 mg/dL (6-20); Calcium 10.3 mg/dL (8.6-10.3); Carbon Dioxide 12 mEq/L (23-29); Chloride 89 mEq/L (98-107); Globulin 3.6 g/dL (2.4-3.5); Glucose 552 mg/dL (70-105); Osmolality,Calculated 289 (280-300); Sodium 126 mEq/L (136-145); Total Protein 8.4 g/dL (6.4-8.9); eGFR For African Americans > 60 (> 60); eGFR For Non-African Americans > 60 (> 60)
[2018-01-31 22:54] LABS: Phenytoin (Dilantin) < 0.5 mcg/mL (10.0-20.0)
[2018-01-31 22:56] LABS: VBG HCO3 13 mEq/L (21-27); VBG PCO2 34 mmHg (41-51); VBG PO2 35 mmHg (25-50)
[2018-01-31] MEDS ORDERED: Insulin Human Regular 10 UNIT in 0.9 % Sodium Chloride 10 ML IV ONE (23:10)
[2018-01-31] MEDS ORDERED: Piperacillin/Tazobactam 3.375 GM in 0.9 % Sodium Chloride Mini Bag 100 ML IVPB ONE (23:21)
[2018-01-31] MEDS ORDERED: Vancomycin 1,000 MG in D5% in Water 250 ML IVPB ONE (23:21)
[2018-01-31] MEDS ORDERED: *HR* Dextrose 50 % in Water (Syg) 50 ML SYRINGE IVP PRN (23:24)
[2018-01-31] MEDS ORDERED: Insulin Human Regular 100 UNIT in 0.9 % Sodium Chloride 100 ML IVC SCH (23:30)
--- NOTE | 2018-01-31 23:41 | Emergency Department Note ---
Disposition Clinical Impression: Hyperglycemia, Seizure, IVDU (intravenous drug user), DKA (diabetic ketoacidoses) Disposition: Admitted As Inpatient Condition: Fair Referrals: NONE,PCP [Primary Care Provider] - Forms: ED Satisfaction Letter, Work/School Release Time of Disposition: 23:30 General Adult HPI - General Chief complaint: ED General Medical Stated complaint: I got infection in my body from ICE Time Seen by Provider: 01/31/18 21:32 Source: patient, EMS Mode of arrival: EMS Limitations: altered mental status, other (Uncooperative. Lashes out at staff, cursing refusing blood draws. Poor hygiene) Nursing Notes Reviewed: Yes Vital Signs Reviewed: Yes - History of Present Illness Pain Scale: 0 - Related Data Home Medications Medication Instructions Recorded Confirmed Insulin NPH Human Isophane 11 unit SQ QPM 01/23/18 01/23/18 [Novolin N] Insulin NPH Human Isophane 15 unit SQ QAM 01/23/18 01/23/18 [Novolin N] Insulin Regular, Human [Novolin R] 5 unit SQ QPM 01/23/18 01/23/18 Insulin Regular, Human [Novolin R] 7 unit SQ QAM 01/23/18 01/23/18 Quetiapine Fumarate 800 mg PO HS 01/23/18 01/23/18 Venlafaxine HCl [Venlafaxine HCl 75 mg PO DAILY 01/23/18 01/23/18 ER] Previous Rx's Medication Instructions Recorded Gabapentin [Neurontin] 800 mg PO TID #90 tablet 12/05/17 Naproxen 500 mg PO BID PRN #60 tablet 12/05/17 Phenytoin ER [Dilantin ER] 100 mg PO TID #90 capsule 12/05/17 hydrOXYzine pamoate [HydrOXYzine 25 mg PO TID PRN #90 capsule 12/05/17 Pamoate] Allergies Allergy/AdvReac Type Severity Reaction Status Date / Time diphenhydramine Allergy Intermediate See Verified 01/31/18 21:28 [From Benadryl] Comments insulin glargine Allergy Blister Verified 01/31/18 21:28 [From Lantus] Past Medical History - Past Medical History Medical history: Reports: diabetes, hepatitis, seizures Surgical history: Reports: no surgical history Psychiatric history: Reports: prior suicide attempt, previous psychiatric hospitalization - Social History Smoking Status: Current every day smoker Smokeless Tobacco Status: No Alcohol use: Reports: occasionally Drug use: Reports: marijuana, methamphetamine, IV Drug Use Physical Exam - General Limitations: altered mental status, other (Uncooperative. Lashes out at staff, cursing refusing blood draws. Poor hygiene) General appearance: alert, in no apparent distress, appears intoxicated Course Vital Signs Temperature 97.5 F L 01/31/18 21:31 Pulse Rate 82 01/31/18 21:31 Respiratory Rate 20 01/31/18 21:31 Blood Pressure 109/78 01/31/18 21:31 O2 Sat by Pulse Oximetry 100 01/31/18 21:31 Temperature 97.5 F L 01/31/18 21:31 Pulse Rate 82 01/31/18 21:31 Respiratory Rate 20 01/31/18 21:31 Blood Pressure 109/78 01/31/18 21:31 O2 Sat by Pulse Oximetry 100 01/31/18 21:31 Oxygen Delivery Oxygen Delivery Room Air Medical Decision Making - MDM Narrative Medical decision making narrative: 32-year-old male received in signout at 11 PM pending laboratory evaluation, reevaluation and disposition. Patient has a significantly elevated fingerstick glucose. He has anion gap of 25. He is acidotic and has elevated beta hydroxybutyric acid level. Patient reports he has not taken his insulin in 2 days. He also has a history of seizure disorder for which she is supposed to take Dilantin however he has not taken that medication either. Bystander told EMS that there may have been seizure-like activity present. Patient is refusing CT of the head or neck. He does not have obvious trauma to the head or neck. He is verbally abusive to the staff during the evaluation. He is able to answer questions when asked repeatedly. Patient states he is an IV drug user and has a history of bacteremia. Patient also has a leukocytosis however he is afebrile. Patient will be started on IV antibiotics for possible sepsis. Patient started on IV insulin drip in the emergency department. He will be admitted to the ICU for further care and evaluation. - Medical Records Medical records reviewed: Yes I reviewed the patient's medical records. - Lab Data Lab results reviewed: Yes I reviewed the patient's lab results. Result diagrams: 01/31/18 22:18 01/31/18 21:57 Lab Results 01/31/18 01/31/18 01/31/18 Range/Units 21:57 22:02 22:04 WBC (4.3-11.1) K/mcL RBC (4.19-5.50) M/mcL Hgb (12.9-16.9) g/dL Hct (37.5-50.1) % MCV (83.0-100.0) fL MCH (28.0-33.3) pg MCHC (31.6-35.5) g/dL RDW (11.5-14.5) % Plt Count (140-400) K/mcL MPV (9.4-12.4) fL Immature Gran % (0-4) % Seg Neutrophils % % Lymphocytes % % Monocytes % % Eosinophils % % Basophils % % Neutrophils # (1.6-8.9) K/mcL Lymphocytes # (0.6-4.6) K/mcL Monocytes # (0.0-1.3) K/mcL Eosinophils # (0.0-0.6) K/mcL Basophils # (0.0-0.2) K/mcL VBG pH (7.32-7.42) pH Units VBG pCO2 (41-51) mmHg VBG pO2 (25-50) mmHg VBG HCO3 (21-27) mEq/L Sodium 126 L (136-145) mEq/L Potassium 5.0 (3.5-5.1) mEq/L Chloride 89 L (98-107) mEq/L Carbon Dioxide 12 L (23-29) mEq/L BUN 17 (6-20) mg/dL Creatinine 1.08 (0.70-1.30) mg/dL Est GFR ( Amer) > 60 (> 60) Est GFR (Non-Af Amer) > 60 (> 60) BUN/Creatinine Ratio 16 (6-26) Glucose 552 H* (70-105) mg/dL POC Glucose 511 H* 597 H* (58-89) Calculated Osmolality 289 (280-300) Calcium 10.3 (8.6-10.3) mg/dL Total Bilirubin 0.5 (0.3-1.0) mg/dL AST 27 (13-39) Units/L ALT 32 (7-52) Units/L Alkaline Phosphatase 171 H (34-104) Units/L Serum Total Protein 8.4 (6.4-8.9) g/dL Albumin 4.8 (3.5-5.7) g/dL Globulin 3.6 H (2.4-3.5) g/dL Albumin/Globulin Ratio 1.3 (1.1-2.2) Beta-Hydroxybutyric Acd (0.02-0.27) mmol/L Phenytoin < 0.5 L (10.0-20.0) mcg/mL 01/31/18 01/31/18 01/31/18 Range/Units 22:18 22:18 22:28 WBC 17.2 H D (4.3-11.1) K/mcL RBC 4.94 (4.19-5.50) M/mcL Hgb 14.4 D (12.9-16.9) g/dL Hct 45.1 (37.5-50.1) % MCV 91.3 (83.0-100.0) fL MCH 29.1 (28.0-33.3) pg MCHC 31.9 (31.6-35.5) g/dL RDW 13.4 (11.5-14.5) % Plt Count 435 H D (140-400) K/mcL MPV 9.3 L (9.4-12.4) fL Immature Gran % 1.5 (0-4) % Seg Neutrophils % 83.7 % Lymphocytes % 9.0 % Monocytes % 5.2 % Eosinophils % 0.1 % Basophils % 0.5 % Neutrophils # 14.4 H (1.6-8.9) K/mcL Lymphocytes # 1.6 (0.6-4.6) K/mcL Monocytes # 0.9 (0.0-1.3) K/mcL Eosinophils # 0.0 (0.0-0.6) K/mcL Basophils # 0.1 (0.0-0.2) K/mcL VBG pH 7.20 L* (7.32-7.42) pH Units VBG pCO2 34 L (41-51) mmHg VBG pO2 35 (25-50) mmHg VBG HCO3 13 L (21-27) mEq/L Sodium (136-145) mEq/L Potassium (3.5-5.1) mEq/L Chloride (98-107) mEq/L Carbon Dioxide (23-29) mEq/L BUN (6-20) mg/dL Creatinine (0.70-1.30) mg/dL Est GFR ( Amer) (> 60) Est GFR (Non-Af Amer) (> 60) BUN/Creatinine Ratio (6-26) Glucose (70-105) mg/dL POC Glucose (58-89) Calculated Osmolality (280-300) Calcium (8.6-10.3) mg/dL Total Bilirubin (0.3-1.0) mg/dL AST (13-39) Units/L ALT (7-52) Units/L Alkaline Phosphatase (34-104) Units/L Serum Total Protein (6.4-8.9) g/dL Albumin (3.5-5.7) g/dL Globulin (2.4-3.5) g/dL Albumin/Globulin Ratio (1.1-2.2) Beta-Hydroxybutyric Acd > 2.00 H (0.02-0.27) mmol/L Phenytoin (10.0-20.0) mcg/mL - Radiology Data Radiology results reviewed: Yes I reviewed the patient's radiology results. - EKG Data EKG #1 EKG attestation: Yes I reviewed and interpreted this EKG. EKG results narrative: ECG - interpreted by ED physician. Rate 69, normal sinus rhythm, no STEMI, DC, QT intervals, and QRS within normal limits
[2018-01-31] MEDS ORDERED: PHENYTOIN IVPB ONE (23:46)
[2018-01-31] MEDS ORDERED: Ondansetron 4 MG/2 ML VIAL IVP ONE (23:50)
[2018-02-01 00:09] LABS: Troponin I 0.07 ng/mL (< 0.04)
[2018-02-01] MEDS ORDERED: Naloxone 0.4 MG/ML INJ IVP PRN (01:01)
[2018-02-01 01:03] LABS: Bilirubin,Urine Negative (Negative); Blood,Urine Negative (Negative); Clarity,Urine Clear (Clear); Color,Urine Yellow (Yellow); Glucose,Urine (UA) >=1000 mg/dL (Normal); Ketones,Urine >=160 mg/dL (Negative); Leukocyte Esterase,Urine Negative (Negative); Nitrite,Urine Negative (Negative); PH,Urine 5.5 pH Units (5.0-8.0); Protein,Urine Trace mg/dL (Neg-Trace); Specific Gravity,Urine > 1.030 (1.010-1.025); Urobilinogen,Urine Normal (Normal)
[2018-02-01 01:06] LABS: Bacteria,Urine None Seen per hpf (None-Few); Hyaline Casts,Urine None Seen per lpf (None-Few); RBC,Urine 0-3 per hpf (0-3); Squamous Epithelial Cell,Urine None Seen per lpf (None-Few); WBC,Urine 0-3 per hpf (0-3)
[2018-02-01 01:07] LABS: Amphetamine Screen,Urine Positive ng/mL (Cutoff=1000); Barbiturate Screen,Urine Negative ng/mL (Cutoff=200); Benzodiazepines Screen,Urine Negative ng/mL (Cutoff=200); Cannabinoid Screen,Urine Negative ng/mL (Cutoff = 50); Cocaine Screen,Urine Negative ng/mL (Cutoff= 300); Opiate Screen,Urine Negative ng/mL (Cutoff=300); Phencyclidine Screen,Urine Negative ng/mL (Cutoff=25)
[2018-02-01 01:18] LABS: Ethanol < 10 mg/dL (0-10)
[2018-02-01 01:53] LABS: Basophils # 0.1 K/mcL (0.0-0.2); Basophils % 0.5 %; Eosinophils % 0.2 %; Hematocrit 45.1 % (37.5-50.1); Hemoglobin 14.6 g/dL (12.9-16.9); Immature Granulocytes % 2.2 % (0-4); Lymphocytes % 11.5 %; Mean Corpuscular HGB Conc 32.4 g/dL (31.6-35.5); Mean Corpuscular Volume 89.7 fL (83.0-100.0); Mean Platelet Volume 8.9 fL (9.4-12.4); Monocytes # 0.8 K/mcL (0.0-1.3); Monocytes % 4.6 %; Neutrophils # 14.3 K/mcL (1.6-8.9); Platelet Count 437 K/mcL (140-400); Red Blood Count 5.03 M/mcL (4.19-5.50); Red Cell Distribution Width 13.4 % (11.5-14.5)
[2018-02-01] MEDS ORDERED: Ondansetron 4 MG/2 ML VIAL IVP ONE (01:55)
--- NOTE | 2018-02-01 02:24 | Internal Med History&Physical ---
Date of Encounter: 02/01/18 Time of Encounter: 02:00 Assessment and Plan (1) DKA (diabetic ketoacidoses) Current visit: Yes Status: Acute Patient with acute diabetic ketoacidosis. Admit inpatient. Place him on intravenous insulin drip and fluids per DKA protocol. Monitor basic panel and vital signs closely. High risk for complications. Qualifiers: Diabetes mellitus type: type 1 Diabetes mellitus complication detail: without coma Qualified Code(s): E10.10 - Type 1 diabetes mellitus with ketoacidosis without coma (2) Sepsis Current visit: Yes Status: Suspected Patient presenting with leukocytosis which could be due to possible sepsis versus acute DKA. We will continue IV antibiotics for now. Follow culture results. De-escalate and possibly discontinue antibiotics if cultures are negative. Qualifiers: Sepsis type: sepsis due to unspecified organism Qualified Code(s): A41.9 - Sepsis, unspecified organism (3) IVDU (intravenous drug user) Current visit: Yes Status: Acute Patient with history of IV drug abuse. Social work consult. Will monitor for signs of withdrawal. (4) Seizure Current visit: Yes Status: Chronic Patient has history of seizure disorder and according to ED records was noted to have seizure-like activity by EMS. Subtherapeutic phenytoin levels. Patient received Dilantin in the ER Which we will continue. Seizure precautions. (5) DVT prophylaxis Current visit: Yes Status: Acute With subcutaneous heparin (6) Diabetes Current visit: Yes Status: Chronic With DKA. We will treat with intravenous insulin drip. Qualifiers: Diabetes mellitus type: type 1 Diabetes mellitus complication status: with ketoacidosis Diabetes mellitus complication detail: without coma Qualified Code(s): E10.10 - Type 1 diabetes mellitus with ketoacidosis without coma Internal Medicine - H&P: HPI Chief complaint: Patient complained of infection Admitted From: Emergency Dept Plans for Post Hospital Care: Home History of present illness: Mr. Lemus is a 32 year old male patient with a history of diabetes mellitus type 1 who presented to the ER complaining that he has an infection from using ICE. He is presently very somnolent and not waking up to answer questions and so history has been obtained from ED records. Patient had come in complaining of having an infection and was apparently intoxicated and altered. He was also agitated and uncooperative lashing out at staff and refusing blood draws. He was found to have elevated blood sugars and was acidotic. His urine was positive for methamphetamines. It is unclear when he last used them. In the ER, patient has received IV antibiotics, Zofran and intravenous Dilantin. Past Med Surg Social Fam HX - Past Medical History Source: old records reviewed Medical history: diabetes, hepatitis, seizures Psychiatric history: prior suicide attempt, previous psychiatric hospitalization - Past Surgical History Surgical History: no surgical history - Social History Smoking Status: Current every day smoker Smokeless Tobacco Status: No Alcohol use: occasionally Drug use: marijuana, methamphetamine, IV Drug Use - Family History Father Family Member Ethnicity: Non- Living Status: Hx Family Cardiac Disorders: Yes ([place]) Hx Family Endocrine Disorder: Yes ([place]) Mother Family Member Ethnicity: Non- Living Status: Still Living Sister Family Member Ethnicity: Non- Living Status: Still Living Internal Medicine - H&P: Meds Gabapentin [Neurontin] 800 mg PO TID #90 tablet 12/05/17 [Rx] Naproxen 500 mg PO BID PRN #60 tablet 12/05/17 [Rx] Phenytoin ER [Dilantin ER] 100 mg PO TID #90 capsule 12/05/17 [Rx] hydrOXYzine pamoate [HydrOXYzine Pamoate] 25 mg PO TID PRN #90 capsule 12/05/17 [Rx] Insulin NPH Human Isophane [Novolin N] 11 unit SQ QPM 01/23/18 [History] Insulin NPH Human Isophane [Novolin N] 15 unit SQ QAM 01/23/18 [History] Insulin Regular, Human [Novolin R] 5 unit SQ QPM 01/23/18 [History] Insulin Regular, Human [Novolin R] 7 unit SQ QAM 01/23/18 [History] Quetiapine Fumarate 800 mg PO HS 01/23/18 [History] Venlafaxine HCl [Venlafaxine HCl ER] 75 mg PO DAILY 01/23/18 [History] 3 Allergy/AdvReac Type Severity Reaction Status Date / Time diphenhydramine Allergy Intermediate See Verified 01/31/18 21:28 [From Benadryl] Comments insulin glargine Allergy Blister Verified 01/31/18 21:28 [From Lantus] ROS unobtainable: due to mental status All Systems PM: A 10-system review of systems was performed and is negative for pertinent findings except as documented above in the HPI. Review of systems: Obtained through review of ED records - Constitutional Constitutional: no chills, no fever(s), no night sweats - EENT Eyes: no change in vision, no discharge, no pain, no photophobia Ears: no ear discharge, no ear pain, no tinnitus Nose, mouth and throat: no dysphagia, no nasal discharge, no neck pain, no sore throat - Cardiovascular Cardiovascular ROS IM: no chest pain, no diaphoresis, no dyspnea, no lightheadedness, no palpitations, no syncope - Respiratory Respiratory: cough, no dyspnea, no wheezing, no excessive phlegm production - Gastrointestinal Gastrointestinal: no abdominal pain, no diarrhea, no hematemesis, no hematochezia, no melena, no nausea, no vomiting - Musculoskeletal Musculoskeletal ROS IM: no numbness, no tingling - Integumentary Integumentary IM: no rash, no unusual bruising - Neurological Neurological ROS: no confusion, no convulsions, no focal weakness, no numbness, no tingling, no tremor(s) - Constitutional Vitals: Temp Pulse Resp BP Pulse Ox 97.5 F L 77 18 135/97 94 01/31/18 21:31 02/01/18 00:53 02/01/18 00:53 02/01/18 00:53 02/01/18 00:53 General appearance: Present: disheveled. Absent: answers questions appropriately Exam: Somnolent - Neck Neck exam general surgery: Present: supple, trachea midline. Absent: lymphadenopathy - Respiratory Respiratory exam: Present: CTAB. Absent: accessory muscle use, rales, rhonchi, wheezes - Cardiovascular Cardiovascular exam: Present: RRR, +S1, +S2. Absent: diastolic murmur, gallop, rubs, systolic murmur - GI/Abdominal GI/Abdominal exam: Present: normal bowel sounds, soft, no peritoneal signs. Absent: distended, tenderness - Extremities Exam Extremities exam: Present: warm, radial pulses palpable and symmetrical. Absent : calf tenderness, cyanotic, pedal edema - Neurological Exam Neurological exam: Present: altered (Somnolent), no focal deficits. Absent: facial droop, speech deficit - Skin Skin exam: Present: dry, intact Internal Med - H&P Results - Labs CBC & Chem 7: 02/01/18 01:30 01/31/18 21:57 Labs: Short CBC 01/31/18 02/01/18 Range/Units 22:18 01:30 WBC 17.2 H D 17.7 H (4.3-11.1) K/mcL Hgb 14.4 D 14.6 (12.9-16.9) g/dL Hct 45.1 45.1 (37.5-50.1) % Plt Count 435 H D 437 H (140-400) K/mcL Neutrophils # 14.4 H 14.3 H (1.6-8.9) K/mcL BMP 01/31/18 21:57 Sodium 126 L Potassium 5.0 Chloride 89 L Carbon Dioxide 12 L BUN 17 Creatinine 1.08 Glucose 552 H* Calcium 10.3 Cardiac Enzymes 01/31/18 Range/Units 22:18 Troponin I 0.07 H* (< 0.04) ng/mL Liver Function 01/31/18 Range/Units 21:57 Total Bilirubin 0.5 (0.3-1.0) mg/dL AST 27 (13-39) Units/L ALT 32 (7-52) Units/L Alkaline Phosphatase 171 H (34-104) Units/L Albumin 4.8 (3.5-5.7) g/dL Urine 02/01/18 Range/Units 00:20 Urine Color Yellow (Yellow) Urine Clarity Clear (Clear) Urine pH 5.5 (5.0-8.0) pH Units Ur Specific [place] > 1.030 H (1.010-1.025) Urine Protein Trace (Neg-Trace) mg/dL Urine Glucose (UA) >=1000 H (Normal) mg/dL - ABG Interpretation ABG results: 01/31/18 22:28 VBG pH 7.20 L* VBG pCO2 34 L VBG pO2 35 VBG HCO3 13 L - Impressions ITS Impressions Chest X-Ray 01/31/18 21:29 IMPRESSION: Stable negative chest. D/ / Vera Gonsales MD / Vera Gonsales MD Interpreting Provider: Vera Gonsales MD
[2018-02-01] MEDS ORDERED: *HR* Heparin 5,000 UNIT/ML VIAL IVP ONE (02:39)
[2018-02-01] MEDS ORDERED: *HR* Heparin 5,000 UNIT/ML VIAL IVP PRN ×2 (02:39)
[2018-02-01] MEDS ORDERED: Heparin 25,000 UNIT/500 ML D5W 25,000 UNIT/500 ML BAG IVC SCH (02:45)
[2018-02-01 03:55] LABS: INR 1.1; Prothrombin Time 11.4 Seconds (9.4-12.1)
[2018-02-01 03:58] LABS: Activated Partial Thrombo Time 23.4 Seconds (26.0-36.0)
[2018-02-01] MEDS ORDERED: 0.9 % Sodium Chloride 1,000 ML IVC ONE (04:03)
[2018-02-01 06:44] LABS: BUN/Creatinine Ratio 17 (6-26); Blood Urea Nitrogen 12 mg/dL (6-20); Calcium 8.5 mg/dL (8.6-10.3); Carbon Dioxide 17 mEq/L (23-29); Chloride 105 mEq/L (98-107); Glucose 187 mg/dL (70-105); Osmolality,Calculated 277 (280-300); Sodium 131 mEq/L (136-145); eGFR For African Americans > 60 (> 60); eGFR For Non-African Americans > 60 (> 60)
--- NOTE | 2018-02-01 08:11 | Internal Med Progress Note ---
Date of Encounter: 02/01/18 Time of Encounter: 08:10 - Subjective Interval history: HPI: 32 year old male patient with a history of diabetes mellitus type 1 admitted to ICU with DKA who presented to the ER complaining that he has an infection from using "ICE". Assessment and Plan (1) DKA (diabetic ketoacidoses) Currently on insulin drip but the AG is closed and he will be given his NPH insulin (alergic to levemir and lantus) and SSI (Novalog) will be started. AccuChecks qACHS. (2) Sepsis Patient presenting with leukocytosis which could be due to possible sepsis versus acute DKA. Continue current antibiotics and follow culture reports. Given IVDA vacteremia and BE are possible. No murrur on exam. Echo ordered. (3) IVDU (intravenous drug user) Reported history of IVDU. Patient initially presented with concerns regarding infection. Urine positive for amphetamines. Leukocytosis but afebrile, started on Abx. Blood cultures pending. Echo pending. No murmur on exam. (4) Elevated troponin. Subsequent troponins trended back to normal. Heparin drip stopped. Cardiology consulted and agree this is not ACS. (5) Seizure Patient has history of seizure disorder and according to ED records was noted to have seizure-like activity by EMS. Subtherapeutic phenytoin levels. Patient received Dilantin in the ER Which we will continue. Seizure precautions. (6) DVT prophylaxis With subcutaneous heparin - Constitutional Vitals: Temp Pulse Resp BP Pulse Ox 98.3 F 76 16 110/98 94 02/01/18 07:40 02/01/18 07:46 02/01/18 07:37 02/01/18 07:37 02/01/18 07:42 General appearance: Present: disheveled. Absent: answers questions appropriately - Head Head exam: Present: atraumatic, normocephalic - Eye Eye exam: Present: PERRL, conjuntiva pink, sclera anicteric Pupils: Present: PERRL - Neck Neck exam general surgery: Present: supple, trachea midline. Absent: lymphadenopathy - Respiratory Respiratory exam: Present: CTAB. Absent: accessory muscle use, rales, rhonchi, wheezes - Cardiovascular Cardiovascular exam: Present: RRR, +S1, +S2. Absent: diastolic murmur, gallop, rubs, systolic murmur - GI/Abdominal GI/Abdominal exam: Present: normal bowel sounds, soft, no peritoneal signs. Absent: distended, tenderness - Extremities Exam Extremities exam: Present: warm, radial pulses palpable and symmetrical. Absent : calf tenderness, cyanotic, pedal edema - Neurological Exam Neurological exam: Present: CN II-XII intact, oriented X3, no focal deficits. Absent: pronater drift, facial droop, speech deficit - Skin Skin exam: Present: dry, intact Internal Medicine: Result - Labs CBC & Chem 7: 02/01/18 01:30 02/01/18 06:13 Labs: BMP 02/01/18 06:13 Sodium 131 L Potassium 4.0 Chloride 105 Carbon Dioxide 17 L BUN 12 Creatinine 0.69 L Glucose 187 H Calcium 8.5 L Cardiac Enzymes 02/01/18 Range/Units 06:13 Troponin I < 0.03 (< 0.04) ng/mL - ABG Interpretation ABG results: PT/INR, D-dimer PT 11.4 Seconds (9.4-12.1) 02/01/18 03:25 Consult Discharge Plan - Plan Referrals: NONE,PCP [Primary Care Provider] -
[2018-02-01] MEDS ORDERED: Dextrose Gel 15 GM/37.5 ML TUBE PO PRN ×4 (08:28→18:16)
[2018-02-01] MEDS ORDERED: *HR* Dextrose 50 % in Water (Syg) 50 ML SYRINGE IVP PRN ×2 (08:28→18:16)
[2018-02-01] MEDS ORDERED: D5% in Water 1,000 ML IVC PRN ×2 (08:28→18:16)
[2018-02-01] MEDS: Piperacillin/Tazobactam 3.375 GM in 0.9 % Sodium Chloride Mini Bag 100 ML IVPB SCH ×2 (08:40→17:00)
[2018-02-01] MEDS: Gabapentin 400 MG CAPSULE PO SCH ×3 (08:41→20:57)
[2018-02-01] MEDS: Venlafaxine XR (24 HR) 75 MG CAP.ER.24H PO SCH (08:41)
[2018-02-01] MEDS: Insulin NPH 100 UNIT/ML (x5UNIT) SQ SCH (09:08)
--- NOTE | 2018-02-01 09:56 | Cardiology Consult Note ---
Date of Encounter: 02/01/18 Time of Encounter: 09:30 Assessment and Plan (1) Elevated troponin Current Visit: Yes Status: Acute Troponin mildly elevated, peak at 0.1 likely representing demand ischemia in setting of DKA. ECG without new ischemic changes. Heparin stopped by primary team. Echo is pending. Patient not cooperative - does not provide information about symptoms. (2) IVDU (intravenous drug user) Current Visit: Yes Status: Acute Reported history of IVDU. Patient initially presented with concerns regarding infection. Urine positive for amphetamines. Leukocytosis but afebrile, started on Abx. Blood cultures pending. Echo pending. No murmur on exam. Discussion w patient/family: The assessment and plan as outlined above was discussed with the patient and/or family members who expressed understanding and agreement. All questions were answered. Thank you for involving us in the care of your patient. Anticipate sign off pending results of echo. Please call with any questions. History of Present Illness Consult date: 02/01/18 Requesting physician: Tiarra Wolf Consult reason: elevated troponin Chief complaint: patient complained of infection History of present illness: Mr. Lemus is a 32 year old male presenting to the ER with concerns regarding "infection from using ICE". I was paged by the ER physician overnight and reviewed all documentation from the ER and Hospitalist team today. The patient was started on heparin gtt overnight when troponin was found to be elevated at 0.1 in setting of type I diabetes. It has since downtrended and been discontinued by primary team. An echo is pending. Also noted to have DKA - patient is a type I diabetic. Patient urine positive for amphetamines - unclear if use was by IV. Patient also with leukocytosis, afebrile. Hemodynamically stable. At the bedside, the patient is not cooperative. Multiple attempts were made to precipitate conversation but patient was non verbal in my presence. Past Med Surg Social Fam HX - Past Medical History Source: old records reviewed Medical history: diabetes, hepatitis, seizures Psychiatric history: prior suicide attempt, previous psychiatric hospitalization - Past Surgical History Surgical History: no surgical history - Social History Smoking Status: Current every day smoker Smokeless Tobacco Status: No Alcohol use: occasionally Drug use: marijuana, methamphetamine, IV Drug Use - Family History Father Family Member Ethnicity: Non- Living Status: Hx Family Cardiac Disorders: Yes (AR) Hx Family Endocrine Disorder: Yes (DM) Mother Family Member Ethnicity: Non- Living Status: Still Living Sister Family Member Ethnicity: Non- Living Status: Still Living Medications and Allergies Gabapentin [Neurontin] 800 mg PO TID #90 tablet 12/05/17 [Rx] Naproxen 500 mg PO BID PRN #60 tablet 12/05/17 [Rx] Phenytoin ER [Dilantin ER] 100 mg PO TID #90 capsule 12/05/17 [Rx] hydrOXYzine pamoate [HydrOXYzine Pamoate] 25 mg PO TID PRN #90 capsule 12/05/17 [Rx] Insulin NPH Human Isophane [Novolin N] 11 unit SQ QPM 01/23/18 [History] Insulin NPH Human Isophane [Novolin N] 15 unit SQ QAM 01/23/18 [History] Insulin Regular, Human [Novolin R] 5 unit SQ QPM 01/23/18 [History] Insulin Regular, Human [Novolin R] 7 unit SQ QAM 01/23/18 [History] Quetiapine Fumarate 800 mg PO HS 01/23/18 [History] Venlafaxine HCl [Venlafaxine HCl ER] 75 mg PO DAILY 01/23/18 [History] 3 Allergy/AdvReac Type Severity Reaction Status Date / Time insulin glargine Allergy Blister Verified 01/31/18 21:28 [From Lantus] diphenhydramine AdvReac Intermediate See Verified 02/01/18 07:46 [From Benadryl] Comments ROS unobtainable: other (Patient not cooperative, not answering questions) All Systems Review: The remainder of the systems were reviewed and are negative Physical Examination Vital Signs, Last 4 Hours Temp Pulse Resp BP Pulse Ox 02/01/18 09:00 82 16 133/85 95 02/01/18 08:50 78 16 119/86 98 02/01/18 07:46 76 02/01/18 07:42 94 02/01/18 07:40 98.3 F 02/01/18 07:37 98.6 F 79 16 110/98 94 02/01/18 06:00 89 16 126/74 97 General: Other (not cooperative or conversant) HEENT: Atraumatic, Other (mucus membranes not able to be visualized) Neck: No JVD, Normal carotid pulses Cardiac: Reg Rate and Rhythm, Normal S1 and S2, No Murmur Lungs: Other (lack of inspiratory effort, no apparent wheeze rales or rhonchi) Neuro: Other (alert, not conversant, unable to evaluate for focal deficit) Abdomen: Soft, Non-Tender, Other (bowel sounds present) Extremities: No Edema, Normal Pulses Results 02/01/18 01:30 02/01/18 06:13 Lab Results 02/01/18 02/01/18 06:13 06:13 Sodium 131 L Potassium 4.0 Chloride 105 Carbon Dioxide 17 L BUN 12 Creatinine 0.69 L Glucose 187 H Calcium 8.5 L Troponin I < 0.03 - Imaging and Cardiology Chest Xray: report reviewed - EKG Interpretation EKG results cardiology: personally reviewed (NSR HR [address] abnormalities, similar when compared to ECG from 01/23/2018), other (telemetry reviewed - no concering dysrhythmia or pauses) Consult Discharge Plan - Plan Referrals: NONE,PCP [Primary Care Provider] -
[2018-02-01 10:02] LABS: VBG HCO3 13 mEq/L (21-27); VBG PCO2 36 mmHg (41-51); VBG PH 7.17 pH Units (7.32-7.42); VBG PO2 70 mmHg (25-50)
[2018-02-01] MEDS: Insulin LISPRO 300 UNITS/3 ML VIAL SQ SCH ×2 (11:32→16:59)
[2018-02-01] MEDS: *HR* HYDROcodone/Acet 7.5/325 mg TABLET PO PRN (18:05)
[2018-02-01] MEDS: hydrOXYzine pamoate 25 MG CAPSULE PO PRN (18:05)
--- NOTE | 2018-02-01 20:02 | Electrocardiograph Report ---
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
--- NOTE | 2018-02-01 20:20 | Electrocardiograph Report ---
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
[2018-02-01] MEDS ORDERED: Insulin LISPRO 300 UNITS/3 ML VIAL SQ SCH (21:00)
[2018-02-02] MEDS ORDERED: Insulin LISPRO 300 UNITS/3 ML VIAL SQ SCH (07:30)
[2018-02-02] MEDS: Gabapentin 400 MG CAPSULE PO SCH ×3 (07:45→21:10)
[2018-02-02] MEDS: Piperacillin/Tazobactam 3.375 GM in 0.9 % Sodium Chloride Mini Bag 100 ML IVPB SCH ×4 (07:45→23:30)
[2018-02-02] MEDS: Venlafaxine XR (24 HR) 75 MG CAP.ER.24H PO SCH (07:45)
[2018-02-02] MEDS: Insulin NPH 100 UNIT/ML (x5UNIT) SQ SCH (07:46)
[2018-02-02] MEDS ORDERED: Dextrose Gel 15 GM/37.5 ML TUBE PO PRN ×4 (07:49→07:53)
[2018-02-02] MEDS ORDERED: D5% in Water 1,000 ML IVC PRN ×2 (07:49→07:53)
[2018-02-02] MEDS ORDERED: *HR* Dextrose 50 % in Water (Syg) 50 ML SYRINGE IVP PRN ×2 (07:49→07:53)
--- NOTE | 2018-02-02 07:58 | Internal Med Progress Note ---
Date of Encounter: 02/02/18 Time of Encounter: 07:56 - Subjective Interval history: HPI: 02/01/18: 32 year old male patient with a history of diabetes mellitus type 1 admitted to ICU with DKA who presented to the ER complaining that he has an infection from using "ICE". 02/02/2018: A&Ox3 today. Not c/o cp/sob. No fever. BG still elevated 200-300 range. No N/V /D Echo results pending. Assessment and Plan (1) DKA (diabetic ketoacidoses) Off insulin drip 24 hrs. He takes NPH at home but after restarting NPH his BG still high. Change to SSI (Novalog) will be started. AccuChecks qACHS. Allergic to Levimer and Lantus (2) Sepsis Patient presenting with leukocytosis which could be due to possible sepsis versus acute DKA. Continue current antibiotics and follow culture reports. Given IVDA vacteremia and BE are possible. No murmur on exam. Echo ordered. Yesterday he initially refused but is allowing echo today. AM labs still pending Unfortunately abx were started in ER before blood cultures. He remains afebrile (3) IVDU (intravenous drug user) Reported history of IVDU. Patient initially presented with concerns regarding infection. Urine positive for amphetamines. Leukocytosis but afebrile, started on Abx. Blood cultures pending. Echo pending. No murmur on exam. (4) Elevated troponin. Subsequent troponins trended back to normal. Heparin drip stopped. Cardiology consulted and agree this is not ACS. (5) Seizure Patient has history of seizure disorder and according to ED records was noted to have seizure-like activity by EMS. Subtherapeutic phenytoin levels. Patient received Dilantin in the ER Which we will continue. Seizure precautions. Recheck dilantin level (6) DVT prophylaxis With subcutaneous heparin - Constitutional Vitals: Temp Pulse Resp BP Pulse Ox 98.2 F 61 18 132/87 95 02/02/18 07:27 02/02/18 06:00 02/02/18 06:00 02/02/18 06:00 02/02/18 06:00 General appearance: Present: A&O X 3, pleasant, no acute distress, answers questions appropriately - Head Head exam: Present: atraumatic, normocephalic - Eye Eye exam: Present: PERRL, conjuntiva pink, sclera anicteric Pupils: Present: PERRL - Neck Neck exam general surgery: Present: supple, trachea midline. Absent: lymphadenopathy - Respiratory Respiratory exam: Present: CTAB. Absent: accessory muscle use, rales, rhonchi, wheezes - Cardiovascular Cardiovascular exam: Present: RRR, +S1, +S2. Absent: diastolic murmur, gallop, rubs, systolic murmur - GI/Abdominal GI/Abdominal exam: Present: normal bowel sounds, soft, no peritoneal signs. Absent: distended, tenderness - Extremities Exam Extremities exam: Present: warm, radial pulses palpable and symmetrical. Absent : calf tenderness, cyanotic, pedal edema - Neurological Exam Neurological exam: Present: CN II-XII intact, oriented X3, no focal deficits. Absent: pronater drift, facial droop, speech deficit - Skin Skin exam: Present: dry, intact Internal Medicine: Result - Labs CBC & Chem 7: 02/01/18 01:30 02/01/18 06:13 - ABG Interpretation ABG results: PT/INR, D-dimer PT 11.4 Seconds (9.4-12.1) 02/01/18 03:25 Consult Discharge Plan - Plan Referrals: NONE,PCP [Primary Care Provider] -
[2018-02-02 08:25] LABS: BUN/Creatinine Ratio 12 (6-26); Blood Urea Nitrogen 7 mg/dL (6-20); Calcium 8.5 mg/dL (8.6-10.3); Carbon Dioxide 23 mEq/L (23-29); Chloride 101 mEq/L (98-107); Glucose 345 mg/dL (70-105); Osmolality,Calculated 286 (280-300); Potassium 3.9 mEq/L (3.5-5.1); Sodium 132 mEq/L (136-145); eGFR For African Americans > 60 (> 60); eGFR For Non-African Americans > 60 (> 60)
[2018-02-02 08:33] LABS: Basophils % 0.5 %; Eosinophils # 0.1 K/mcL (0.0-0.6); Eosinophils % 0.8 %; Hematocrit 39.1 % (37.5-50.1); Immature Granulocytes % 1.1 % (0-4); Lymphocytes # 1.3 K/mcL (0.6-4.6); Lymphocytes % 15.8 %; Mean Corpuscular Hemoglobin 29.1 pg (28.0-33.3); Mean Corpuscular Volume 88.1 fL (83.0-100.0); Mean Platelet Volume 9.1 fL (9.4-12.4); Monocytes # 0.6 K/mcL (0.0-1.3); Monocytes % 6.8 %; Neutrophils # 6.4 K/mcL (1.6-8.9); Platelet Count 355 K/mcL (140-400); Red Blood Count 4.44 M/mcL (4.19-5.50); Red Cell Distribution Width 13.2 % (11.5-14.5)
[2018-02-02 08:43] LABS: Hemoglobin 12.9 g/dL (12.9-16.9)
[2018-02-02 08:52] LABS: Phenytoin (Dilantin) 5.1 mcg/mL (10.0-20.0)
[2018-02-02] MEDS: Insulin LISPRO 300 UNITS/3 ML VIAL SQ SCH ×4 (09:23→21:13)
[2018-02-02] MEDS: *HR* HYDROcodone/Acet 7.5/325 mg TABLET PO PRN ×2 (09:23→15:34)
[2018-02-02] MEDS ORDERED: Aminoglycoside Consult 1 EACH MC ONE (12:41)
--- NOTE | 2018-02-02 13:20 | Cardiology Progress Note ---
Date of Encounter: 02/02/18 Time of Encounter: 11:00 Assessment and Plan (1) Elevated troponin Current Visit: Yes Status: Acute Troponin mildly elevated, peak at 0.1 (now negative) likely representing demand ischemia in setting of DKA. ECG without new ischemic changes. No chest pain reported. TTE shows normal LVEF with normal wall motion. Risk factor modification encouraged. No further testing warranted. Cardiology will sign-off. Discussion w patient/family: The assessment and plan as outlined above was discussed with the patient and/or family members who expressed understanding and agreement. All questions were answered. Thank you for involving us in the care of your patient. Please call with any questions. The patient will be discussed and reviewed with Dr. Butch Florian; Cardiology will sign off. No further testing warranted. Subjective Principal diagnosis: IVDA, elevated troponin, DKA Interval history: Seen and examined. No complaints this AM upon exam. Objective Vital Signs, Last 4 Hours Temp Pulse Resp BP Pulse Ox 02/02/18 12:00 61 17 134/89 98 02/02/18 11:52 98.0 F 02/02/18 11:00 67 18 130/83 98 02/02/18 10:00 68 17 124/69 97 General: Conversant, No Apparent Distress HEENT: Atraumatic, Normocephaly, Mucus Membranes Moist Cardiac: Reg Rate and Rhythm, Normal S1 and S2 Lungs: Normal Breath Sounds Neuro: Alert and responsive Abdomen: Soft Skin: No rashes noted on visualized skin Musculoskeletal: No Chest Wall Tenderness Extremities: No Edema, Normal Pulses Other: open area/redness right forearm s/p IVDA Results 02/02/18 07:26 02/02/18 07:26 Lab Results 02/02/18 02/02/18 07:26 07:26 WBC 8.5 D Hgb 12.9 D Hct 39.1 Plt Count 355 Sodium 132 L Potassium 3.9 Chloride 101 Carbon Dioxide 23 BUN 7 Creatinine 0.57 L Glucose 345 H Calcium 8.5 L Active Medications Hydrocodone Bitart/Acetaminophen ([place] 7.5-325 Mg) 1 tab PO Q6HR PRN PRN Reason: Severe Pain Stop: 08/03/18 17:53 Last Admin: 02/02/18 09:23 Dose: 1 tab Dextrose/Water (Dextrose 50% (Syg)) 25 ml IVP AD PRN PRN Reason: Hypoglycemia Stop: 08/04/18 07:54 Gabapentin (Neurontin) 800 mg PO TID [facility] Stop: 08/03/18 09:01 Last Admin: 02/02/18 07:45 Dose: 800 mg Glucagon (Glucagen) 1 mg IM ONCE PRN PRN Reason: Hypoglycemia Stop: 08/04/18 07:54 Glucose (Gluctose) 15 gm PO ONCE PRN PRN Reason: Hypoglycemia Stop: 08/04/18 07:54 Glucose (Gluctose) 30 gm PO ONCE PRN PRN Reason: Hypoglycemia Stop: 08/04/18 07:54 Heparin Sodium (Porcine) (Heparin) 5,000 unit SQ Q8H [facility] Stop: 08/04/18 14:01 Hydroxyzine Pamoate (Hydroxyzine Pamoate) 25 mg PO TID PRN PRN Reason: Anxiety Stop: 08/03/18 02:34 Last Admin: 02/01/18 18:05 Dose: 25 mg Piperacillin Sod/Tazobactam (Sod 3.375 gm/ Sodium Chloride) 100 mls @ 25 mls/ hr IVPB Q8HR [facility] Stop: 08/03/18 08:01 Last Infusion: 02/02/18 12:07 Dose: Infused Vancomycin HCl 1,500 mg/ (Sodium Chloride) 250 mls @ 166.67 mls/hr IVPB Q12H [facility] Stop: 08/03/18 11:01 Last Admin: 02/02/18 12:07 Dose: 100 mls/hr Dextrose (Dextrose 5%) 1,000 mls @ 100 mls/hr IVC .Q10H PRN PRN Reason: HYPOGLYCEMIA Stop: 08/04/18 07:54 Insulin Human Lispro (Humalog) 0 units SQ TIDAC [facility] PRN Reason: Protocol Stop: 08/04/18 08:01 Last Admin: 02/02/18 12:06 Dose: 12 units Insulin Human Lispro (Humalog) 0 units SQ HS [facility] PRN Reason: Protocol Stop: 08/04/18 21:01 Insulin Human NPH (Humulin Nph) 15 unit SQ 0800 [facility] Stop: 08/05/18 08:01 Insulin Human NPH (Humulin Nph) 12 unit SQ 1700 [facility] Stop: 08/04/18 17:01 Lisinopril (Zestril) 5 mg PO DAILY [facility] PRN Reason: Protocol Stop: 08/03/18 17:31 Last Admin: 02/02/18 07:45 Dose: 5 mg Naloxone HCl (Narcan) 0.4 mg IVP Q2MIN PRN PRN Reason: SEE COMMENTS Stop: 08/03/18 01:02 Naproxen (Naprosyn) 500 mg PO BID PRN; Protocol PRN Reason: Pain Stop: 08/03/18 02:34 Phenytoin (Dilantin Er) 100 mg PO TID [facility] Stop: 08/03/18 09:01 Last Admin: 02/02/18 07:45 Dose: 100 mg Quetiapine Fumarate (Seroquel) 800 mg PO HS [facility] Stop: 08/03/18 21:01 Last Admin: 02/01/18 20:57 Dose: Not Given Venlafaxine HCl (Effexor Xr) 75 mg PO DAILY [facility] Stop: 08/03/18 09:01 Last Admin: 02/02/18 07:45 Dose: 75 mg - Imaging and Cardiology Echo: report reviewed Other Results: 12 hour tele: avg HR 66 - EKG Interpretation EKG results cardiology: personally reviewed Consult Discharge Plan - Plan Referrals: NONE,PCP [Primary Care Provider] -
[2018-02-02] MEDS: *HR* Heparin 5,000 UNIT/ML VIAL SQ SCH ×2 (15:16→21:11)
[2018-02-02] MEDS: hydrOXYzine pamoate 25 MG CAPSULE PO PRN (15:33)
[2018-02-02] MEDS ORDERED: Insulin NPH 300 UNIT/3 ML per UNIT SQ SCH (17:00)
[2018-02-02] MEDS ORDERED: Insulin NPH 100 UNIT/ML (x5UNIT) SQ SCH (17:38)
[2018-02-03] MEDS: *HR* Heparin 5,000 UNIT/ML VIAL SQ SCH ×3 (05:27→20:49)
[2018-02-03 07:33] LABS: Basophils # 0.1 K/mcL (0.0-0.2); Basophils % 1.1 %; Eosinophils # 0.1 K/mcL (0.0-0.6); Eosinophils % 1.5 %; Hematocrit 40.8 % (37.5-50.1); Hemoglobin 13.3 g/dL (12.9-16.9); Immature Granulocytes % 1.8 % (0-4); Lymphocytes # 1.5 K/mcL (0.6-4.6); Lymphocytes % 21.9 %; Mean Corpuscular HGB Conc 32.6 g/dL (31.6-35.5); Mean Corpuscular Volume 88.9 fL (83.0-100.0); Mean Platelet Volume 9.2 fL (9.4-12.4); Monocytes # 0.3 K/mcL (0.0-1.3); Monocytes % 5.1 %; Neutrophils # 4.5 K/mcL (1.6-8.9); Platelet Count 339 K/mcL (140-400); Red Blood Count 4.59 M/mcL (4.19-5.50); Red Cell Distribution Width 13.2 % (11.5-14.5); Segmented Neutrophils % 68.6 %
[2018-02-03] MEDS ORDERED: Insulin NPH 100 UNIT/ML (x5UNIT) SQ SCH ×2 (08:00→17:00)
[2018-02-03] MEDS ORDERED: Insulin NPH 300 UNIT/3 ML per UNIT SQ SCH (08:00)
[2018-02-03] MEDS: Insulin LISPRO 300 UNITS/3 ML VIAL SQ SCH ×4 (08:39→20:50)
[2018-02-03] MEDS: Piperacillin/Tazobactam 3.375 GM in 0.9 % Sodium Chloride Mini Bag 100 ML IVPB SCH (08:40)
[2018-02-03] MEDS: Venlafaxine XR (24 HR) 75 MG CAP.ER.24H PO SCH (08:41)
[2018-02-03] MEDS: Gabapentin 400 MG CAPSULE PO SCH ×3 (08:41→20:09)
--- NOTE | 2018-02-03 11:55 | Internal Med Progress Note ---
Date of Encounter: 02/03/18 Time of Encounter: 11:55 - Subjective Interval history: HPI: 02/01/18: 32 year old male patient with a history of diabetes mellitus type 1 admitted to ICU with DKA who presented to the ER complaining that he has an infection from using "ICE". 02/02/2018: A&Ox3 today. Not c/o cp/sob. No fever. BG still elevated 200-300 range. No N/V /D Echo results pending. 02/03/2018: A&Ox3 today. Not c/o cp/sob. No fever. BG still elevated 200-300 range despite large changes in insulin dosing. . No N/V/D Echo did not show valular lesions. B.Cx remain NTD. Vanc and Zosyn d/c'd Assessment and Plan (1) DKA (diabetic ketoacidoses) Off insulin drip 24 hrs. He takes NPH at home but after restarting NPH his BG still high. HD-SSI (Humalog) qACHS with scheduled Hmalob at meals started. AccuChecks qACHS. Allergic to Levimer and Lantus (2) Sepsis Patient presenting with leukocytosis which could be due to possible sepsis versus acute DKA. Continue current antibiotics and follow culture reports. Given IVDA vacteremia and BE are possible. No murmur on exam. Echo ordered. Yesterday he initially refused but is allowing echo today. AM labs still pending Unfortunately abx were started in ER before blood cultures. He remains afebrile (3) IVDU (intravenous drug user) Reported history of IVDU. Patient initially presented with concerns regarding infection. Urine positive for amphetamines. Leukocytosis but afebrile, started on Abx. Blood cultures pending. No murmur on exam. Echo neg for veg. (4) Elevated troponin. Subsequent troponins trended back to normal. Heparin drip stopped. Cardiology consulted and agree this is not ACS. (5) Seizure Patient has history of seizure disorder and according to ED records was noted to have seizure-like activity by EMS. Subtherapeutic phenytoin levels. Patient received Dilantin in the ER Which we will continue. Seizure precautions. Recheck dilantin level (6) DVT prophylaxis With subcutaneous heparin - Constitutional Vitals: Temp Pulse Resp BP Pulse Ox 98.1 F 61 17 109/61 94 02/03/18 11:53 02/03/18 09:00 02/03/18 09:00 02/03/18 09:00 02/03/18 09:00 General appearance: Present: A&O X 3, pleasant, no acute distress, answers questions appropriately - Head Head exam: Present: atraumatic, normocephalic - Eye Eye exam: Present: PERRL, conjuntiva pink, sclera anicteric Pupils: Present: PERRL - Neck Neck exam general surgery: Present: supple, trachea midline. Absent: lymphadenopathy - Respiratory Respiratory exam: Present: CTAB. Absent: accessory muscle use, rales, rhonchi, wheezes - Cardiovascular Cardiovascular exam: Present: RRR, +S1, +S2. Absent: diastolic murmur, gallop, rubs, systolic murmur - GI/Abdominal GI/Abdominal exam: Present: normal bowel sounds, soft, no peritoneal signs. Absent: distended, tenderness - Extremities Exam Extremities exam: Present: warm, radial pulses palpable and symmetrical. Absent : calf tenderness, cyanotic, pedal edema - Neurological Exam Neurological exam: Present: CN II-XII intact, oriented X3, no focal deficits. Absent: pronater drift, facial droop, speech deficit - Skin Skin exam: Present: abrasion, dry, intact Internal Medicine: Result - Labs CBC & Chem 7: 02/03/18 07:03 02/02/18 07:26 Labs: Short CBC 02/03/18 Range/Units 07:03 WBC 6.6 (4.3-11.1) K/mcL Hgb 13.3 (12.9-16.9) g/dL Hct 40.8 (37.5-50.1) % Plt Count 339 (140-400) K/mcL Neutrophils # 4.5 (1.6-8.9) K/mcL - ABG Interpretation ABG results: PT/INR, D-dimer PT 11.4 Seconds (9.4-12.1) 02/01/18 03:25 Consult Discharge Plan - Plan Referrals: NONE,PCP [Primary Care Provider] -
[2018-02-03] MEDS: hydrOXYzine pamoate 25 MG CAPSULE PO PRN (20:49)
[2018-02-04] MEDS: *HR* Heparin 5,000 UNIT/ML VIAL SQ SCH ×2 (05:05→14:05)
[2018-02-04] MEDS: Insulin LISPRO 300 UNITS/3 ML VIAL SQ SCH ×5 (07:48→17:06)
[2018-02-04] MEDS: Venlafaxine XR (24 HR) 75 MG CAP.ER.24H PO SCH (07:49)
[2018-02-04] MEDS: Gabapentin 400 MG CAPSULE PO SCH ×2 (07:49→14:04)
[2018-02-04] MEDS ORDERED: Insulin NPH 100 UNIT/ML (x5UNIT) SQ SCH ×3 (08:00→11:53)
[2018-02-04 09:41] LABS: Basophils # 0.1 K/mcL (0.0-0.2); Basophils % 0.6 %; Eosinophils # 0.1 K/mcL (0.0-0.6); Eosinophils % 0.9 %; Immature Granulocytes % 1.1 % (0-4); Lymphocytes # 2.2 K/mcL (0.6-4.6); Lymphocytes % 24.6 %; Mean Corpuscular HGB Conc 32.6 g/dL (31.6-35.5); Mean Corpuscular Hemoglobin 28.4 pg (28.0-33.3); Mean Corpuscular Volume 87.2 fL (83.0-100.0); Mean Platelet Volume 9.3 fL (9.4-12.4); Monocytes # 0.5 K/mcL (0.0-1.3); Monocytes % 5.2 %; Platelet Count 409 K/mcL (140-400); Red Blood Count 4.93 M/mcL (4.19-5.50); Red Cell Distribution Width 13.3 % (11.5-14.5); Segmented Neutrophils % 67.6 %
[2018-02-04 09:55] LABS: Alanine Aminotransferase 25 Units/L (7-52); Albumin 3.3 g/dL (3.5-5.7); Albumin/Globulin Ratio 1.1 (1.1-2.2); Alkaline Phosphatase 105 Units/L (34-104); Aspartate Amino Transferase 30 Units/L (13-39); BUN/Creatinine Ratio 17 (6-26); Bilirubin,Total 0.2 mg/dL (0.3-1.0); Blood Urea Nitrogen 11 mg/dL (6-20); Calcium 9.3 mg/dL (8.6-10.3); Carbon Dioxide 32 mEq/L (23-29); Chloride 92 mEq/L (98-107); Globulin 2.9 g/dL (2.4-3.5); Glucose 267 mg/dL (70-105); Osmolality,Calculated 283 (280-300); Potassium 4.1 mEq/L (3.5-5.1); Sodium 132 mEq/L (136-145); Total Protein 6.2 g/dL (6.4-8.9); eGFR For African Americans > 60 (> 60); eGFR For Non-African Americans > 60 (> 60)
[2018-02-04] MEDS: *HR* HYDROcodone/Acet 7.5/325 mg TABLET PO PRN (11:35)
[2018-02-04] MEDS ORDERED: Insulin LISPRO 300 UNITS/3 ML VIAL SQ SCH (11:49)
[2018-02-04 16:15] VITALS: BP 113/72
--- NOTE | 2018-02-04 17:07 | Discharge Summary ---
Date of Encounter: 02/04/18 Time of Encounter: 16:48 Hospital course: Mr. Lemus is a 32 year old male patient with a history of diabetes mellitus type 1 who presented to the ER complaining that he has an infection from injecting methamphetamine. He was very somnolent, agitated and uncooperative lashing out at staff and refusing blood draws. He was found to be in DKA and his urine was positive for methamphetamines. He was admitted to ICU and the DKA protocol was initiate. Blood cultures were obtained and he was started on broad spectrum antibiotics (Vancomycin and Zosyn) out of concern for endocarditis associated with IVDA. An Echocardiogram was obtained and did not show valvular vegitations or any other significant abnormalities. His blood cultures were NTD at the time of his discharge and he was afebrile with a normal WBC and no signs of infection. No murmurs were observed. His NPH insulin along with SSI (Humalog) was restarted and he was given prescriptions for all of his medications. He was discharged in stable condition. Discharge discussed with: patient, nurse Time spent discussing smoking cessation with patient: more than 10 minutes - Time Spent with Patient Total time spent providing and/or coordinating discharge services: Greater than 30 minutes - Discharge Medications Prescriptions: Amoxicillin/Clavulanate [Augmentin] 875 mg PO BIDWM 7 Days #14 tablet Gabapentin [Neurontin] 800 mg PO TID #90 tablet hydrOXYzine pamoate [HydrOXYzine Pamoate] 25 mg PO TID PRN #90 capsule PRN Reason: Anxiety Insulin NPH Human Isophane [Novolin N] 11 unit SQ QPM 30 Days #8 vial Insulin NPH Human Isophane [Novolin N] 15 unit SQ QAM 30 Days #8 vial Lisinopril [Zestril] 5 mg PO DAILY 30 Days #30 tablet Phenytoin ER [Dilantin ER] 100 mg PO TID #90 capsule Home Medications: Naproxen 500 mg PO BID PRN #60 tablet 12/05/17 [Rx] Insulin Regular, Human [Novolin R] 5 unit SQ QPM 01/23/18 [History] Insulin Regular, Human [Novolin R] 7 unit SQ QAM 01/23/18 [History] Quetiapine Fumarate 800 mg PO HS 01/23/18 [History] Venlafaxine HCl [Venlafaxine HCl ER] 75 mg PO DAILY 01/23/18 [History] Amoxicillin/Clavulanate [Augmentin] 875 mg PO BIDWM 7 Days #14 tablet 02/04/18 [ Rx] Gabapentin [Neurontin] 800 mg PO TID #90 tablet 02/04/18 [Rx] Insulin NPH Human Isophane [Novolin N] 11 unit SQ QPM 30 Days #8 vial 02/04/18 [ Rx] Insulin NPH Human Isophane [Novolin N] 15 unit SQ QAM 30 Days #8 vial 02/04/18 [ Rx] Lisinopril [Zestril] 5 mg PO DAILY 30 Days #30 tablet 02/04/18 [Rx] Phenytoin ER [Dilantin ER] 100 mg PO TID #90 capsule 02/04/18 [Rx] hydrOXYzine pamoate [HydrOXYzine Pamoate] 25 mg PO TID PRN #90 capsule 02/04/18 [Rx] Allergies/Adverse Reactions: 3 Allergy/AdvReac Type Severity Reaction Status Date / Time insulin glargine Allergy Blister Verified 01/31/18 21:28 [From Lantus] diphenhydramine AdvReac Intermediate See Verified 02/01/18 07:46 [From Benadryl] Comments Date of admission: 02/01/18 03:52 Primary care physician: PCP NONE - Constitutional Vitals: Temp Pulse Resp BP Pulse Ox 97.8 F 73 18 113/72 96 02/04/18 16:00 02/04/18 16:00 02/04/18 16:00 02/04/18 16:00 02/04/18 16:00 General appearance: Present: A&O X 3, pleasant, no acute distress, answers questions appropriately - Head Head exam: Present: atraumatic, normocephalic - Eye Eye exam: Present: PERRL, conjuntiva pink, sclera anicteric Pupils: Present: PERRL - Neck Neck exam general surgery: Present: supple, trachea midline. Absent: lymphadenopathy - Respiratory Respiratory exam: Present: CTAB. Absent: accessory muscle use, rales, rhonchi, wheezes - Cardiovascular Cardiovascular exam: Present: RRR, +S1, +S2. Absent: diastolic murmur, gallop, rubs, systolic murmur - GI/Abdominal GI/Abdominal exam: Present: normal bowel sounds, soft, no peritoneal signs. Absent: distended, tenderness - Extremities Exam Extremities exam: Present: warm, radial pulses palpable and symmetrical. Absent : calf tenderness, cyanotic, pedal edema - Neurological Exam Neurological exam: Present: CN II-XII intact, oriented X3, no focal deficits. Absent: pronater drift, facial droop, speech deficit - Psychiatric Psychiatric exam: Present: normal affect, normal mood - Skin Skin exam: Present: abrasion, dry, intact - Patient Status Disposition: Home, Self-Care Condition: Good - Discharge Instructions Follow Up With: Marsha Vang DO [Resident] - (Web request sent 02/03/18)
== END 2018-02-04 17:57 | disposition home or self-care (01) | DRG 720 ==
LOC: EMEROO 21:24 → ICNU 02-01 03:52 → 3ANU 02-03 17:48
PROVIDERS: ADMIT Family Medicine; ATTEND Family Medicine

== ENCOUNTER 2018-02-08 10:03 | Inpatient (IN) ==
--- NOTE | 2018-02-08 10:37 | Emergency Department Note ---
Disposition Clinical Impression: DKA (diabetic ketoacidoses) Qualifiers: Diabetes mellitus type: type 1 Diabetes mellitus complication detail: without coma Qualified Code(s): E10.10 - Type 1 diabetes mellitus with ketoacidosis without coma Disposition: Admitted As Inpatient Condition: Fair Referrals: NONE,PCP [Primary Care Provider] - Forms: Work/School Release, ED Satisfaction Letter Time of Disposition: 11:53 General Adult HPI - General Chief complaint: ED Recheck/Abnormal Lab/Rx Stated complaint: hyperglycemia Time Seen by Provider: 02/08/18 10:03 Source: patient, EMS Mode of arrival: EMS Limitations: no limitations Nursing Notes Reviewed: Yes Vital Signs Reviewed: Yes - History of Present Illness HPI Narrative: 32-year-old male with significant past medical history of type 1 diabetes poorly controlled and multiple episodes of DKA along with IV drug use presenting to the emergency department with multiple complaints. Patient states he is feeling nauseous and vomited once today. He states he was standing on a bucket when he lost balance and landed on his right shoulder causing right shoulder pain. He also was complaining of an anxiety attack to EMS and stated his chest hurt. He denies any chest pain at this time. He denies any abdominal pain or diarrhea. He denies any recent illnesses or fevers. Patient is a poor historian and the rim and refuses to respond to multiple questions. Pain Scale: 9 - Related Data Home Medications Medication Instructions Recorded Confirmed Venlafaxine HCl [Venlafaxine HCl 75 mg PO DAILY 01/23/18 02/08/18 ER] Insulin NPH Hum/Reg Insulin Hm 15 units SQ HS 02/08/18 02/08/18 [Novolin 70-30 100 Unit/ml Vial] Insulin NPH Hum/Reg Insulin Hm 22 unit SQ QAM 02/08/18 02/08/18 [Novolin 70-30 100 Unit/ml Vial] Insulin Regular Human [HumuLIN R] 2 - 10 unit SQ BID 02/08/18 02/08/18 Quetiapine Fumarate [SEROquel] 300 mg PO HS 02/08/18 02/08/18 Previous Rx's Medication Instructions Recorded Naproxen 500 mg PO BID PRN #60 tablet 12/05/17 Amoxicillin/Clavulanate [Augmentin] 875 mg PO BIDWM 7 Days #14 tablet 02/04/18 Gabapentin [Neurontin] 800 mg PO TID #90 tablet 02/04/18 Lisinopril [Zestril] 5 mg PO DAILY 30 Days #30 tablet 02/04/18 Phenytoin ER [Dilantin ER] 100 mg PO TID #90 capsule 02/04/18 hydrOXYzine pamoate [HydrOXYzine 25 mg PO TID PRN #90 capsule 02/04/18 Pamoate] Allergies Allergy/AdvReac Type Severity Reaction Status Date / Time insulin glargine Allergy Blister Verified 01/31/18 21:28 [From Lantus] diphenhydramine AdvReac Intermediate See Verified 02/01/18 07:46 [From Benadryl] Comments All systems ED: reviewed and negative except as stated. Cardiovascular: Reports: chest pain Gastrointestinal: Reports: nausea, vomiting Musculoskeletal: Reports: arthralgia Past Medical History - Past Medical History Attestation: Yes The following information was validated with the patient. Medical history: Reports: diabetes, hepatitis, seizures Surgical history: Reports: no surgical history Psychiatric history: Reports: prior suicide attempt, previous psychiatric hospitalization - Social History Smoking Status: Current every day smoker Smokeless Tobacco Status: No Alcohol use: Reports: rarely Drug use: Reports: marijuana, methamphetamine, IV Drug Use Physical Exam - General Limitations: no limitations General appearance: alert - Head Head exam: atraumatic, normocephalic, normal inspection - Eye Eye exam: Present: normal appearance. Absent: scleral icterus, conjunctival injection - ENT ENT exam: mucous membranes dry - Neck Neck exam: Present: normal inspection, full ROM. Absent: tenderness, meningismus - Chest Chest inspection: Present: normal inspection, symmetric chest wall rise. Absent : tenderness, rash - Respiratory Respiratory exam: Present: normal lung sounds bilaterally. Absent: respiratory distress, wheezes - Cardiovascular Cardiovascular exam: Present: regular rate, normal rhythm, normal heart sounds - Abdominal Exam Abdominal exam: Present: soft, Non-Tender. Absent: tenderness, distention, guarding, rebound, rigidity - Extremities Exam Extremities exam: Present: other (Right shoulder pain on palpation. Decreased range of motion due to pain. Distally neurovascularly intact. No obvious step- off, dislocation or crepitus) - Neurological Exam Neurological exam: Present: alert, oriented X3 - Psychiatric Psychiatric exam: Present: agitated - Skin Skin exam: Present: warm, dry Course Course Narrative: 32-year-old male with multiple episodes of DKA presenting to the emergency department with hyperglycemia and chest pain. Patient also discloses nausea, vomiting and right shoulder pain. We will obtain a DKA workup along with shoulder x-ray, troponin, EKG and chest x-ray. Patient is alert and oriented 3 in the room. Stable vital signs. Disposition pending results of most likely admission for DKA. Patient agrees with this plan. - Reevaluation(s) Reevaluation #1: Patient's x-rays within normal limits. Patient has blood ketones greater than 2 and is acidotic on VBG. An insulin drip and 2 L of fluids were ordered. Patient will be admitted for DKA at this time. Patient refuses to provide urine analysis. Patient is alert and oriented 3 in the room with stable vital signs. Refuses to respond to questions. I spoke with the hospitalist on-call Dr. Doherty who agrees to accept the patient at this time. Vital Signs Temperature 97.2 F L 02/08/18 10:04 Pulse Rate 65 02/08/18 10:04 Respiratory Rate 20 02/08/18 10:04 Blood Pressure 145/92 02/08/18 10:04 O2 Sat by Pulse Oximetry 99 02/08/18 10:04 Temperature 97.2 F L 02/08/18 10:04 Pulse Rate 65 02/08/18 10:04 Respiratory Rate 20 02/08/18 10:04 Blood Pressure 145/92 02/08/18 10:04 O2 Sat by Pulse Oximetry 99 02/08/18 10:04 Oxygen Delivery Oxygen Delivery Room Air Medical Decision Making - Lab Data Result diagrams: 02/08/18 10:21 02/08/18 10:21 Lab Results 02/08/18 02/08/18 02/08/18 Range/Units 10:13 10:14 10:21 WBC 14.9 H D (4.3-11.1) K/mcL RBC 5.29 (4.19-5.50) M/mcL Hgb 15.6 D (12.9-16.9) g/dL Hct 48.4 (37.5-50.1) % MCV 91.5 (83.0-100.0) fL MCH 29.5 (28.0-33.3) pg MCHC 32.2 (31.6-35.5) g/dL RDW 14.1 (11.5-14.5) % Plt Count 499 H (140-400) K/mcL MPV 9.1 L (9.4-12.4) fL Immature Gran % 1.5 (0-4) % Seg Neutrophils % 90.2 % Lymphocytes % 5.2 % Monocytes % 2.6 % Eosinophils % 0.0 % Basophils % 0.5 % Neutrophils # 13.4 H (1.6-8.9) K/mcL Lymphocytes # 0.8 (0.6-4.6) K/mcL Monocytes # 0.4 (0.0-1.3) K/mcL Eosinophils # 0.0 (0.0-0.6) K/mcL Basophils # 0.1 (0.0-0.2) K/mcL VBG pH (7.32-7.42) pH Units VBG pCO2 (41-51) mmHg VBG pO2 (25-50) mmHg VBG HCO3 (21-27) mEq/L Sodium (136-145) mEq/L Potassium (3.5-5.1) mEq/L Chloride (98-107) mEq/L Carbon Dioxide (23-29) mEq/L BUN (6-20) mg/dL Creatinine (0.70-1.30) mg/dL Est GFR ( Amer) (> 60) Est GFR (Non-Af Amer) (> 60) BUN/Creatinine Ratio (6-26) Glucose (70-105) mg/dL POC Glucose 544 H* 516 H* (58-89) Calculated Osmolality (280-300) Calcium (8.6-10.3) mg/dL Troponin I (< 0.04) ng/mL Beta-Hydroxybutyric Acd (0.02-0.27) mmol/L Person Notif of Crit 02/08/18 02/08/18 02/08/18 Range/Units 10:21 10:21 10:52 WBC (4.3-11.1) K/mcL RBC (4.19-5.50) M/mcL Hgb (12.9-16.9) g/dL Hct (37.5-50.1) % MCV (83.0-100.0) fL MCH (28.0-33.3) pg MCHC (31.6-35.5) g/dL RDW (11.5-14.5) % Plt Count (140-400) K/mcL MPV (9.4-12.4) fL Immature Gran % (0-4) % Seg Neutrophils % % Lymphocytes % % Monocytes % % Eosinophils % % Basophils % % Neutrophils # (1.6-8.9) K/mcL Lymphocytes # (0.6-4.6) K/mcL Monocytes # (0.0-1.3) K/mcL Eosinophils # (0.0-0.6) K/mcL Basophils # (0.0-0.2) K/mcL VBG pH 7.17 L* (7.32-7.42) pH Units VBG pCO2 44 (41-51) mmHg VBG pO2 35 (25-50) mmHg VBG HCO3 16 L (21-27) mEq/L Sodium 129 L (136-145) mEq/L Potassium 4.2 (3.5-5.1) mEq/L Chloride 90 L (98-107) mEq/L Carbon Dioxide 14 L (23-29) mEq/L BUN 20 (6-20) mg/dL Creatinine 1.02 (0.70-1.30) mg/dL Est GFR ( Amer) > 60 (> 60) Est GFR (Non-Af Amer) > 60 (> 60) BUN/Creatinine Ratio 20 (6-26) Glucose 456 H (70-105) mg/dL POC Glucose (58-89) Calculated Osmolality 290 (280-300) Calcium 10.4 H (8.6-10.3) mg/dL Troponin I < 0.03 (< 0.04) ng/mL Beta-Hydroxybutyric Acd > 2.00 H (0.02-0.27) mmol/L Person Notif of [place] Vang - EKG Data EKG #1 EKG attestation: Yes I reviewed and interpreted this EKG. EKG results narrative: Sinus rhythm. [address] and T-wave abnormalities. CA interval 117 , QRS 106, QTc 439. No signs of acute ST segment elevation or ischemia noted. Compared to previous EKG completed on 02/01/2018 no significant changes noted
[2018-02-08] MEDS: 0.9 % Sodium Chloride 1,000 ML IVC SCH ×5 (10:43→17:09)
[2018-02-08] MEDS ORDERED: *HR* Dextrose 50 % in Water (Syg) 50 ML SYRINGE IVP PRN ×4 (10:59→16:15)
[2018-02-08] MEDS ORDERED: Insulin Human Regular 100 UNIT in 0.9 % Sodium Chloride 100 ML IVC SCH (11:00)
[2018-02-08 11:02] LABS: VBG HCO3 16 mEq/L (21-27); VBG PCO2 44 mmHg (41-51); VBG PH 7.17 pH Units (7.32-7.42); VBG PO2 35 mmHg (25-50)
--- NOTE | 2018-02-08 11:06 | Emergency Department Note ---
START Narrative - START START: I examined this patient and my medical decision-making was reviewed with the Resident Physician. I agree with the documented findings, disposition and treatment plan as described except to the extent set forth below. 32-year-old male presents to the emergency room for nausea vomiting weakness and a fall as well as elevated blood sugars. All the symptoms are stemming from his diabetic ketoacidosis. X-rays of the chest and right shoulder are negative. Patient fell this morning injuring his right shoulder. He has had persistent vomiting as well. He has a history of diabetic ketoacidosis. Patient will be started on insulin drip as well as IV fluids and patient will need to be admitted. His venous blood gas shows a pH of 7.1 as well as a low bicarbonate. Critical care time approximately 35 minutes spent in medical management of diabetic ketoacidosis with insulin drip and IV fluids.
[2018-02-08 11:09] LABS: Basophils # 0.1 K/mcL (0.0-0.2); Basophils % 0.5 %; Hematocrit 48.4 % (37.5-50.1); Immature Granulocytes % 1.5 % (0-4); Lymphocytes # 0.8 K/mcL (0.6-4.6); Lymphocytes % 5.2 %; Mean Corpuscular HGB Conc 32.2 g/dL (31.6-35.5); Mean Corpuscular Hemoglobin 29.5 pg (28.0-33.3); Mean Corpuscular Volume 91.5 fL (83.0-100.0); Mean Platelet Volume 9.1 fL (9.4-12.4); Monocytes # 0.4 K/mcL (0.0-1.3); Monocytes % 2.6 %; Neutrophils # 13.4 K/mcL (1.6-8.9); Platelet Count 499 K/mcL (140-400); Red Blood Count 5.29 M/mcL (4.19-5.50); Red Cell Distribution Width 14.1 % (11.5-14.5); Segmented Neutrophils % 90.2 %
[2018-02-08 11:13] LABS: Hemoglobin 15.6 g/dL (12.9-16.9)
[2018-02-08 11:17] LABS: Troponin I < 0.03 ng/mL (< 0.04)
[2018-02-08 11:18] LABS: BUN/Creatinine Ratio 20 (6-26); Blood Urea Nitrogen 20 mg/dL (6-20); Calcium 10.4 mg/dL (8.6-10.3); Carbon Dioxide 14 mEq/L (23-29); Chloride 90 mEq/L (98-107); Glucose 456 mg/dL (70-105); Osmolality,Calculated 290 (280-300); Potassium 4.2 mEq/L (3.5-5.1); Sodium 129 mEq/L (136-145); eGFR For African Americans > 60 (> 60); eGFR For Non-African Americans > 60 (> 60)
--- NOTE | 2018-02-08 12:19 | Internal Med History&Physical ---
Date of Encounter: 02/08/18 Time of Encounter: 12:03 Assessment and Plan (1) DKA (diabetic ketoacidoses) Current visit: Yes Status: Acute This is likely caused by non-compliance but will need to rule out infection. He had workup within last week for endocarditis which did not show any vegitations. Chest x-ray today unremarkable. He has 1 SIRS criteria on admission for leukocytosis. -Continue treatment per DKA protocol. -Screen for infection; Obtain blood cultures, trend lactic acid presumably will be elevated. Respiratory infection panel, procalcitonin, urinalysis, -Obtain LFTs Qualifiers: Diabetes mellitus type: type 1 Diabetes mellitus complication detail: without coma Qualified Code(s): E10.10 - Type 1 diabetes mellitus with ketoacidosis without coma (2) Acute kidney failure Current visit: Yes Status: Acute Could be from dehydration. Obtain FENa Hold naproxen, gabapentin and lisinopril Recheck BMP in AM Qualifiers: Acute renal failure type: unspecified Qualified Code(s): N17.9 - Acute kidney failure, unspecified (3) Leukocytosis Current visit: Yes Status: Acute Likely DKA related but will screen for infection with workup as above. Currently afebrile. He was discharged home on Augmentin but unsure if he has been taking this medication. If signs of sepsis develop, will start patient on emperic antibiotic therapy. Qualifiers: Leukocytosis type: unspecified Qualified Code(s): D72.829 - Elevated white blood cell count, unspecified (4) IVDU (intravenous drug user) Current visit: No Status: Acute Obtain serum drug screen monitor for any signs or symptoms of drug withdrawal (5) Bipolar 1 disorder, depressed Current visit: No Status: Chronic (6) Hepatitis C Current visit: No Status: Chronic Qualifiers: Viral hepatitis chronicity: chronic Hepatic coma status: without hepatic coma Qualified Code(s): B18.2 - Chronic viral hepatitis C (7) Noncompliance with medications Current visit: No Status: Chronic (8) Seizure Current visit: No Status: Chronic Continue phenytoin. (9) Chest pain Current visit: Yes Status: Acute Had complaints of chest pain en route to ED which he attributed to anxiety. He had an EKG that was unremarkable and negative initial troponin. Currently he denies any chest pain. - Cycle troponin and monitor. Qualifiers: Chest pain type: unspecified Qualified Code(s): R07.9 - Chest pain, unspecified (10) DVT prophylaxis Current visit: No Status: Acute Heparin 5,000 Sq bid Internal Medicine - H&P: HPI History of present illness: Mr. Lemus is a 32 year old male with history of Type I DKA, non-compliance, IVDA presented today after friend called because of hyperglycemia. Patient had elevated glucose for past week. Accompanied with nausea and one episode of vomiting. He denies diarrhea, abdominal pain, or change in stools. He denies any fevers/chills. Patient has had several admissions for DKA with non- compliance to medication. History is limited to patient's cooperation with exam. Patient complained about falling on his shoulder today. Per EMR, he complained of anxiety attack to EMS and stated that his chest hurt. He has history of allergy to insulin glargine. He was most recently discharged admitted to ICU for DKA. He had treatment per protocol. He had echocardiogram done for concern of endocarditis and was negative. He had no signs/symptoms of infection on discharge. A CT of abdomen and pelvis was negative in Nov 2017. He has reported history of bactermia but review of EMR does not show any positive results. In the ED he was found to be in DKA with glucose 516 on arrival, elevated ketones, acidosis with pH of 7.17 on VBG. Uncorrected sodium of 129, creatinine 1.02 which is higher than his baseline (0.5-0.6). EKG was unremarkable NSR without any ST/T wave changes. He has leukocytosis of 14.9. Chest xr-ay showed no acute process, shoulder x-ray was negative. She was started on insulin drip. Past Med Surg Social Fam HX - Past Medical History Medical history: diabetes, hepatitis, seizures Psychiatric history: prior suicide attempt, previous psychiatric hospitalization - Past Surgical History Surgical History: no surgical history - Social History Smoking Status: Current every day smoker Smokeless Tobacco Status: No Alcohol use: rarely Drug use: marijuana, methamphetamine, IV Drug Use - Family History Father Family Member Ethnicity: Non- Living Status: Hx Family Cardiac Disorders: Yes (AL) Hx Family Endocrine Disorder: Yes (DM) Mother Family Member Ethnicity: Non- Living Status: Still Living Sister Family Member Ethnicity: Non- Living Status: Still Living Internal Medicine - H&P: Meds Naproxen 500 mg PO BID PRN #60 tablet 12/05/17 [Rx] Venlafaxine HCl [Venlafaxine HCl ER] 75 mg PO DAILY 01/23/18 [History] Amoxicillin/Clavulanate [Augmentin] 875 mg PO BIDWM 7 Days #14 tablet 02/04/18 [ Rx] Gabapentin [Neurontin] 800 mg PO TID #90 tablet 02/04/18 [Rx] Lisinopril [Zestril] 5 mg PO DAILY 30 Days #30 tablet 02/04/18 [Rx] Phenytoin ER [Dilantin ER] 100 mg PO TID #90 capsule 02/04/18 [Rx] hydrOXYzine pamoate [HydrOXYzine Pamoate] 25 mg PO TID PRN #90 capsule 02/04/18 [Rx] Insulin NPH Hum/Reg Insulin Hm [Novolin 70-30 100 Unit/ml Vial] 15 units SQ HS 02/08/18 [History] Insulin NPH Hum/Reg Insulin Hm [Novolin 70-30 100 Unit/ml Vial] 22 unit SQ QAM 02/08/18 [History] Insulin Regular Human [HumuLIN R] 2 - 10 unit SQ BID 02/08/18 [History] Quetiapine Fumarate [SEROquel] 300 mg PO HS 02/08/18 [History] 3 Allergy/AdvReac Type Severity Reaction Status Date / Time insulin glargine Allergy Blister Verified 01/31/18 21:28 [From Lantus] diphenhydramine AdvReac Intermediate See Verified 02/01/18 07:46 [From Benadryl] Comments ROS unobtainable: other (Patient uncooperative) All Systems PM: A 10-system review of systems was performed and is negative for pertinent findings except as documented above in the HPI. - Constitutional Vitals: Temp Pulse Resp BP Pulse Ox 97.2 F L 65 20 145/92 99 02/08/18 10:04 02/08/18 10:04 02/08/18 10:04 02/08/18 10:04 02/08/18 10:04 Exam: Limited exam due to patient cooperation: Gen: NAD, AAOx3, limits responses, does not answer most questions appropriately HEENT: Excessive amount of nasal discharge, non-purulent. No sinus tenderness. Nasal mucosa not visualized. No lymphadenopathy CVS: RRR Lungs: CTAB Abd; Soft, NT/ND Ext: no edema, no cyanosis Skin: warm, dry Neuro: Patient refused neurological exam. Internal Med - H&P Results - Labs CBC & Chem 7: 02/08/18 10:21 02/08/18 10:21 Labs: Short CBC 02/08/18 Range/Units 10:21 WBC 14.9 H D (4.3-11.1) K/mcL Hgb 15.6 D (12.9-16.9) g/dL Hct 48.4 (37.5-50.1) % Plt Count 499 H (140-400) K/mcL Neutrophils # 13.4 H (1.6-8.9) K/mcL BMP 02/08/18 10:21 Sodium 129 L Potassium 4.2 Chloride 90 L Carbon Dioxide 14 L BUN 20 Creatinine 1.02 Glucose 456 H Calcium 10.4 H Cardiac Enzymes 02/08/18 Range/Units 10:21 Troponin I < 0.03 (< 0.04) ng/mL - ABG Interpretation ABG results: 02/08/18 10:52 VBG pH 7.17 L* VBG pCO2 44 VBG pO2 35 VBG HCO3 16 L - Impressions ITS Impressions Chest X-Ray 02/08/18 10:21 IMPRESSION: 1. No acute osseous abnormality of the right shoulder. 2. No acute cardiopulmonary process. D/ : / 02/08/2018 10:58:35 Kyle Malloy MD / Kathi Rubio Interpreting Provider: Kyle Malloy MD Shoulder X-Ray 02/08/18 10:23 IMPRESSION: 1. No acute osseous abnormality of the right shoulder. 2. No acute cardiopulmonary process. D/ / 02/08/2018 10:58:35 Kyle Malloy MD / Kathi Rubio Interpreting Provider: Kyle Malloy MD
[2018-02-08] MEDS ORDERED: hydrOXYzine pamoate 25 MG CAPSULE PO PRN (12:42)
[2018-02-08] MEDS ORDERED: Insulin Regular, Human 100 UNIT/ML IV PRN ×2 (13:13→13:23)
[2018-02-08] MEDS ORDERED: 0.45 % Sodium Chloride w/KCl 20 MEQ/1,000 ML MLS IVC SCH (13:15)
[2018-02-08 13:26] LABS: Bilirubin,Urine Negative (Negative); Blood,Urine Negative (Negative); Clarity,Urine Clear (Clear); Color,Urine Yellow (Yellow); Glucose,Urine (UA) >=1000 mg/dL (Normal); Ketones,Urine >=160 mg/dL (Negative); Leukocyte Esterase,Urine Negative (Negative); Nitrite,Urine Negative (Negative); Protein,Urine Trace mg/dL (Neg-Trace); Specific Gravity,Urine 1.029 (1.010-1.025); Urobilinogen,Urine Normal (Normal)
[2018-02-08] MEDS ORDERED: Naloxone 0.4 MG/ML INJ IVP PRN (13:26)
[2018-02-08 13:27] LABS: Bacteria,Urine None Seen per hpf (None-Few); Hyaline Casts,Urine None Seen per lpf (None-Few); RBC,Urine 0-3 per hpf (0-3); Squamous Epithelial Cell,Urine Moderate per lpf (None-Few); WBC,Urine 0-3 per hpf (0-3)
[2018-02-08 14:15] LABS: INR 1.1; Prothrombin Time 11.3 Seconds (9.4-12.1)
[2018-02-08 14:39] LABS: Alanine Aminotransferase 55 Units/L (7-52); Albumin 4.1 g/dL (3.5-5.7); Albumin/Globulin Ratio 1.3 (1.1-2.2); Alkaline Phosphatase 124 Units/L (34-104); Aspartate Amino Transferase 45 Units/L (13-39); BUN/Creatinine Ratio 21 (6-26); Bilirubin,Total 0.4 mg/dL (0.3-1.0); Blood Urea Nitrogen 15 mg/dL (6-20); Calcium 9.4 mg/dL (8.6-10.3); Carbon Dioxide 22 mEq/L (23-29); Chloride 99 mEq/L (98-107); Globulin 3.1 g/dL (2.4-3.5); Glucose 175 mg/dL (70-105); Osmolality,Calculated 277 (280-300); Sodium 131 mEq/L (136-145); Total Protein 7.2 g/dL (6.4-8.9); Troponin I < 0.03 ng/mL (< 0.04); eGFR For African Americans > 60 (> 60); eGFR For Non-African Americans > 60 (> 60)
[2018-02-08 14:53] LABS: Sodium, Urine 37.9 mEq/L
[2018-02-08 15:32] LABS: Salicylate < 5.0 mg/dL (15.0-30.0)
[2018-02-08] MEDS ORDERED: D5% in Water 1,000 ML IVC PRN (16:15)
[2018-02-08] MEDS ORDERED: Dextrose Gel 15 GM/37.5 ML TUBE PO PRN ×2 (16:15)
[2018-02-08] MEDS ORDERED: Insulin LISPRO 300 UNITS/3 ML VIAL SQ SCH ×2 (16:30→21:00)
--- NOTE | 2018-02-08 16:48 | Electrocardiograph Report ---
[place] [address] Test Date: 2018-02-08 Pat Name: John Lemus Department: 103 Room: Gender: M Service Inspector: HIMANSHU : 1985 Requested By: Thu Berry Order Number: [id number] Reading MD: Woo Vasquez DO Measurements Intervals [place] Rate: 62 P: 64 GA: 117 QRS: 80 QRSD: 106 T: 65 QT: 435 QTc: 439 Interpretive Statements SINUS RHYTHM WITH SHORT GA INTERVAL NONSPECIFIC ST & T-WAVE ABNORMALITY Electronically Signed On 02-08-2018 16:46:23 EDT by Woo Vasquez DO
[2018-02-08] MEDS ORDERED: Insulin NPH 100 UNIT/ML (x5UNIT) SQ SCH (17:00)
[2018-02-08] MEDS: *HR* Heparin 5,000 UNIT/ML VIAL SQ SCH (20:12)
[2018-02-08 20:28] LABS: BUN/Creatinine Ratio 16 (6-26); Blood Urea Nitrogen 12 mg/dL (6-20); Carbon Dioxide 25 mEq/L (23-29); Chloride 102 mEq/L (98-107); Glucose 126 mg/dL (70-105); Sodium 132 mEq/L (136-145); eGFR For African Americans > 60 (> 60); eGFR For Non-African Americans > 60 (> 60)
[2018-02-08 20:29] LABS: Calcium 8.8 mg/dL (8.6-10.3); Osmolality,Calculated 275 (280-300)
[2018-02-08] MEDS: Acetaminophen 325 MG TABLET PO PRN (22:04)
[2018-02-08] MEDS: GuaiFENesin Liq 200 MG/10 ML UDC PO SCH (22:33)
[2018-02-09] MEDS ORDERED: Insulin LISPRO 300 UNITS/3 ML VIAL SQ PRN ×2 (00:41→00:48)
[2018-02-09 01:08] LABS: Amphetamine Screen,Urine Negative ng/mL (Cutoff=1000); Barbiturate Screen,Urine Negative ng/mL (Cutoff=200); Benzodiazepines Screen,Urine Negative ng/mL (Cutoff=200); Cannabinoid Screen,Urine Positive ng/mL (Cutoff = 50); Cocaine Screen,Urine Negative ng/mL (Cutoff= 300); Opiate Screen,Urine Negative ng/mL (Cutoff=300); Phencyclidine Screen,Urine Negative ng/mL (Cutoff=25)
[2018-02-09 01:29] LABS: Basophils % 0.2 %; Eosinophils # 0.1 K/mcL (0.0-0.6); Eosinophils % 0.4 %; Hematocrit 36.4 % (37.5-50.1); Immature Granulocytes % 0.5 % (0-4); Lymphocytes # 2.1 K/mcL (0.6-4.6); Lymphocytes % 15.2 %; Mean Corpuscular HGB Conc 33.2 g/dL (31.6-35.5); Mean Corpuscular Hemoglobin 29.4 pg (28.0-33.3); Mean Corpuscular Volume 88.3 fL (83.0-100.0); Monocytes # 0.9 K/mcL (0.0-1.3); Monocytes % 6.6 %; Neutrophils # 10.7 K/mcL (1.6-8.9); Platelet Count 376 K/mcL (140-400); Red Blood Count 4.12 M/mcL (4.19-5.50); Red Cell Distribution Width 13.7 % (11.5-14.5); Segmented Neutrophils % 77.1 %
[2018-02-09 01:30] LABS: Hemoglobin 12.1 g/dL (12.9-16.9)
[2018-02-09 01:49] LABS: VBG HCO3 26 mEq/L (21-27); VBG PCO2 39 mmHg (41-51); VBG PH 7.43 pH Units (7.32-7.42); VBG PO2 174 mmHg (25-50)
[2018-02-09 01:52] LABS: BUN/Creatinine Ratio 20 (6-26); Blood Urea Nitrogen 16 mg/dL (6-20); Calcium 8.4 mg/dL (8.6-10.3); Carbon Dioxide 25 mEq/L (23-29); Chloride 96 mEq/L (98-107); Glucose 578 mg/dL (70-105); Osmolality,Calculated 292 (280-300); Potassium 4.6 mEq/L (3.5-5.1); Sodium 127 mEq/L (136-145); eGFR For African Americans > 60 (> 60); eGFR For Non-African Americans > 60 (> 60)
[2018-02-09] MEDS ORDERED: Insulin Human Regular 100 UNIT in 0.9 % Sodium Chloride 100 ML IVC SCH ×2 (02:30→04:45)
[2018-02-09] MEDS: 0.9 % Sodium Chloride 1,000 ML IVC SCH (03:18)
[2018-02-09] MEDS: GuaiFENesin Liq 200 MG/10 ML UDC PO SCH ×3 (06:23→17:05)
[2018-02-09] MEDS: *HR* Heparin 5,000 UNIT/ML VIAL SQ SCH ×2 (06:25→17:05)
[2018-02-09] MEDS ORDERED: Insulin NPH 100 UNIT/ML (x5UNIT) SQ SCH (08:00)
[2018-02-09] MEDS ORDERED: *HR* Dextrose 50 % in Water (Syg) 50 ML SYRINGE IVP PRN (08:32)
[2018-02-09] MEDS ORDERED: Dextrose Gel 15 GM/37.5 ML TUBE PO PRN ×2 (08:32)
[2018-02-09] MEDS ORDERED: D5% in Water 1,000 ML IVC PRN (08:32)
[2018-02-09] MEDS: Insulin LISPRO 300 UNITS/3 ML VIAL SQ SCH ×3 (09:16→17:07)
[2018-02-09] MEDS: Venlafaxine XR (24 HR) 75 MG CAP.ER.24H PO SCH (09:16)
[2018-02-09 09:26] LABS: BUN/Creatinine Ratio 22 (6-26); Blood Urea Nitrogen 13 mg/dL (6-20); Calcium 8.4 mg/dL (8.6-10.3); Carbon Dioxide 22 mEq/L (23-29); Chloride 100 mEq/L (98-107); Glucose 345 mg/dL (70-105); Osmolality,Calculated 284 (280-300); Potassium 4.5 mEq/L (3.5-5.1); Sodium 130 mEq/L (136-145); eGFR For African Americans > 60 (> 60); eGFR For Non-African Americans > 60 (> 60)
[2018-02-09 12:56] LABS: BUN/Creatinine Ratio 18 (6-26); Blood Urea Nitrogen 12 mg/dL (6-20); Calcium 8.8 mg/dL (8.6-10.3); Carbon Dioxide 25 mEq/L (23-29); Chloride 101 mEq/L (98-107); Glucose 231 mg/dL (70-105); Osmolality,Calculated 279 (280-300); Potassium 4.1 mEq/L (3.5-5.1); Sodium 131 mEq/L (136-145); eGFR For African Americans > 60 (> 60); eGFR For Non-African Americans > 60 (> 60)
[2018-02-09] MEDS ORDERED: Insulin LISPRO 300 UNITS/3 ML VIAL SQ SCH (21:00)
[2018-02-09] MEDS: Gabapentin 400 MG CAPSULE PO SCH (21:41)
--- NOTE | 2018-02-09 23:32 | Internal Med Progress Note ---
Date of Encounter: 02/09/18 Time of Encounter: 23:30 - Assessment and plan (1) DKA (diabetic ketoacidoses) Current Visit: Yes Status: Acute Assessment and plan: Blood glucose improved. Off insulin drip now. Off IVF now. Tolerating PO. Will start accuchecks and high dose SSI QID AC/HS. Will start home insulin regimen tomorrow if blood glucose stable overnight. Recheck BMP in AM. Qualifiers: Diabetes mellitus type: type 1 Diabetes mellitus complication detail: without coma Qualified Code(s): E10.10 - Type 1 diabetes mellitus with ketoacidosis without coma (2) Acute kidney injury Current Visit: Yes Status: Resolved Assessment and plan: Resolved. Cr = 0.66. (3) Chest pain Current Visit: Yes Status: Resolved Assessment and plan: Resolved. Unremarkable EKG and troponin WNL. Likely secondary to anxiety. Qualifiers: Chest pain type: unspecified Qualified Code(s): R07.9 - Chest pain, unspecified (4) Leukocytosis Current Visit: Yes Status: Acute Assessment and plan: Improved. WBC = 13.8. Likely DKA related. Recheck CBC in AM. Qualifiers: Leukocytosis type: unspecified Qualified Code(s): D72.829 - Elevated white blood cell count, unspecified (5) IVDU (intravenous drug user) Current Visit: Yes Status: Chronic Assessment and plan: Drug screen positive only for marijuana. Monitor for any signs or symptoms of drug withdrawal. (6) Bipolar 1 disorder, depressed Current Visit: Yes Status: Chronic Assessment and plan: Continue home medications. (7) Hepatitis C Current Visit: Yes Status: Chronic Qualifiers: Viral hepatitis chronicity: chronic Hepatic coma status: without hepatic coma Qualified Code(s): B18.2 - Chronic viral hepatitis C (8) Noncompliance with medications Current Visit: Yes Status: Chronic (9) Seizure Current Visit: Yes Status: Chronic Assessment and plan: Continue home medications. (10) DVT prophylaxis Current Visit: No Status: Acute Assessment and plan: Continue SC heparin. - Time Spent With Patient less than 15 minutes - Subjective Interval history: Patient had no acute events overnight. He states that he is feeling much better today. Thrist, nausea, and vomiting all improved. He denies chest pain or SOB. Nursing staff reports insulin drip stopped last night due to hypoglycemia. He is started this AM on accuchecks and high dose SSI QID AC/HS. He is tolerating diet; in fact wants to eat more. He has no new complaints. - Constitutional Vitals: Temp Pulse Resp BP Pulse Ox 98.6 F 87 19 134/79 98 02/09/18 18:45 02/09/18 18:45 02/09/18 18:45 02/09/18 18:45 02/09/18 18:45 General appearance: Present: cooperative, A&O X 3, pleasant, no acute distress, answers questions appropriately - Respiratory Respiratory exam: Present: CTAB. Absent: accessory muscle use, rales, rhonchi, wheezes Additional comments: Normal WOB - Cardiovascular Cardiovascular exam: Present: RRR, +S1, +S2. Absent: diastolic murmur, gallop, rubs, systolic murmur Additional comments: No BLE edema - GI/Abdominal GI/Abdominal exam: Present: normal bowel sounds, soft. Absent: distended, hepatomegaly, mass, splenomegaly, tenderness - Psychiatric Psychiatric exam: Present: normal affect, normal mood. Absent: anxious, depressed - Skin Skin exam: Present: dry, intact, warm. Absent: cyanosis, rash Internal Medicine: Result - Labs CBC & Chem 7: 02/09/18 01:17 02/09/18 12:03 Labs: Short CBC 02/09/18 Range/Units 01:17 WBC 13.8 H (4.3-11.1) K/mcL Hgb 12.1 L D (12.9-16.9) g/dL Hct 36.4 L (37.5-50.1) % Plt Count 376 (140-400) K/mcL Neutrophils # 10.7 H (1.6-8.9) K/mcL BMP 02/09/18 02/09/18 02/09/18 01:17 07:59 12:03 Sodium 127 L 130 L 131 L Potassium 4.6 4.5 4.1 Chloride 96 L 100 101 Carbon Dioxide 25 22 L 25 BUN 16 13 12 Creatinine 0.82 0.60 L 0.66 L Glucose 578 H* 345 H 231 H Calcium 8.4 L 8.4 L 8.8 - ABG Interpretation ABG results: PT/INR, D-dimer PT 11.3 Seconds (9.4-12.1) 02/08/18 10:41 Consult Discharge Plan - Plan Referrals: NONE,PCP [Primary Care Provider] -
[2018-02-10] MEDS: GuaiFENesin Liq 200 MG/10 ML UDC PO SCH ×4 (00:10→17:35)
[2018-02-10 04:09] LABS: Basophils % 0.5 %; Eosinophils # 0.1 K/mcL (0.0-0.6); Eosinophils % 0.8 %; Hematocrit 37.5 % (37.5-50.1); Hemoglobin 12.6 g/dL (12.9-16.9); Immature Granulocytes % 0.5 % (0-4); Lymphocytes # 1.7 K/mcL (0.6-4.6); Lymphocytes % 19.7 %; Mean Corpuscular HGB Conc 33.6 g/dL (31.6-35.5); Mean Corpuscular Hemoglobin 29.1 pg (28.0-33.3); Mean Corpuscular Volume 86.6 fL (83.0-100.0); Mean Platelet Volume 9.2 fL (9.4-12.4); Monocytes # 0.7 K/mcL (0.0-1.3); Monocytes % 8.2 %; Neutrophils # 6.2 K/mcL (1.6-8.9); Nucleated Red Blood Cells 0.2 /100 WBC (0); Platelet Count 309 K/mcL (140-400); Red Blood Count 4.33 M/mcL (4.19-5.50); Red Cell Distribution Width 13.5 % (11.5-14.5); Segmented Neutrophils % 70.3 %
[2018-02-10 04:27] LABS: BUN/Creatinine Ratio 21 (6-26); Blood Urea Nitrogen 13 mg/dL (6-20); Calcium 8.4 mg/dL (8.6-10.3); Carbon Dioxide 25 mEq/L (23-29); Chloride 95 mEq/L (98-107); Glucose 496 mg/dL (70-105); Osmolality,Calculated 288 (280-300); Sodium 128 mEq/L (136-145); eGFR For African Americans > 60 (> 60); eGFR For Non-African Americans > 60 (> 60)
[2018-02-10] MEDS: *HR* Heparin 5,000 UNIT/ML VIAL SQ SCH ×2 (05:29→17:35)
[2018-02-10] MEDS: 0.9 % Sodium Chloride 1,000 ML IVC SCH (08:23)
[2018-02-10] MEDS: Venlafaxine XR (24 HR) 75 MG CAP.ER.24H PO SCH (08:26)
[2018-02-10] MEDS: Gabapentin 400 MG CAPSULE PO SCH ×3 (08:26→21:48)
[2018-02-10] MEDS: Insulin LISPRO 300 UNITS/3 ML VIAL SQ SCH ×3 (08:27→21:48)
[2018-02-10] MEDS ORDERED: 0.9 % Sodium Chloride 1,000 ML IVC SCH (11:15)
[2018-02-10] MEDS ORDERED: Insulin DETEMIR 100 UNIT/ML X5UNITS SQ SCH (11:15)
[2018-02-10] MEDS ORDERED: Insulin LISPRO 300 UNITS/3 ML VIAL SQ SCH (11:30)
[2018-02-10] MEDS ORDERED: Insulin NPH/REG 70/30 100 UNIT/ML (x5UNIT) SQ SCH (16:30)
--- NOTE | 2018-02-10 23:52 | Internal Med Progress Note ---
Date of Encounter: 02/10/18 Time of Encounter: 23:52 - Assessment and plan (1) DKA (diabetic ketoacidoses) Current Visit: Yes Status: Acute Assessment and plan: Blood glucose coming back up again. Tolerating PO. Continue accuchecks and high dose SSI QID AC/HS. Restart 70/30 insulin at 20 units BID today. Recheck BMP in AM. Qualifiers: Diabetes mellitus type: type 1 Diabetes mellitus complication detail: without coma Qualified Code(s): E10.10 - Type 1 diabetes mellitus with ketoacidosis without coma (2) Acute kidney injury Current Visit: Yes Status: Resolved Assessment and plan: Resolved. Cr = 0.62. (3) Chest pain Current Visit: Yes Status: Resolved Assessment and plan: Resolved. Unremarkable EKG and troponin WNL. Likely secondary to anxiety. Qualifiers: Chest pain type: unspecified Qualified Code(s): R07.9 - Chest pain, unspecified (4) Leukocytosis Current Visit: Yes Status: Resolved Assessment and plan: Resolved. Likely DKA related. Qualifiers: Leukocytosis type: unspecified Qualified Code(s): D72.829 - Elevated white blood cell count, unspecified (5) IVDU (intravenous drug user) Current Visit: Yes Status: Chronic Assessment and plan: Drug screen positive only for marijuana. Monitor for any signs or symptoms of drug withdrawal. (6) Bipolar 1 disorder, depressed Current Visit: Yes Status: Chronic Assessment and plan: Continue home medications. (7) Hepatitis C Current Visit: Yes Status: Chronic Qualifiers: Viral hepatitis chronicity: chronic Hepatic coma status: without hepatic coma Qualified Code(s): B18.2 - Chronic viral hepatitis C (8) Noncompliance with medications Current Visit: Yes Status: Chronic (9) Seizure Current Visit: Yes Status: Chronic Assessment and plan: Continue home medications. (10) DVT prophylaxis Current Visit: Yes Status: Acute Assessment and plan: Continue SC heparin. - Time Spent With Patient less than 15 minutes - Subjective Interval history: Patient had no acute events overnight. He states that he is feeling well today. No more excessive thrist, nausea, or vomiting. He denies chest pain or SOB. He is tolerating SSI. He wants to go back on 70/30 insulin regimen instead of basal bolus, despite his insurance approving this. He is tolerating diet; in fact wants to eat more. He has no new complaints. - Constitutional Vitals: Temp Pulse Resp BP Pulse Ox 98.3 F 75 18 149/95 95 02/10/18 20:55 02/10/18 20:55 02/10/18 20:55 02/10/18 20:55 02/10/18 20:55 General appearance: Present: cooperative, A&O X 3, pleasant, no acute distress, answers questions appropriately - Respiratory Respiratory exam: Present: CTAB. Absent: accessory muscle use, rales, rhonchi, wheezes Additional comments: Normal WOB - Cardiovascular Cardiovascular exam: Present: RRR, +S1, +S2. Absent: diastolic murmur, gallop, rubs, systolic murmur Additional comments: Trace bilateral pedal edema - GI/Abdominal GI/Abdominal exam: Present: normal bowel sounds, soft. Absent: distended, hepatomegaly, mass, splenomegaly, tenderness - Psychiatric Psychiatric exam: Present: normal affect, normal mood. Absent: anxious, depressed - Skin Skin exam: Present: dry, intact, warm. Absent: cyanosis, rash Internal Medicine: Result - Labs CBC & Chem 7: 02/10/18 03:43 02/10/18 03:43 Labs: Short CBC 02/10/18 Range/Units 03:43 WBC 8.9 (4.3-11.1) K/mcL Hgb 12.6 L (12.9-16.9) g/dL Hct 37.5 (37.5-50.1) % Plt Count 309 (140-400) K/mcL Neutrophils # 6.2 (1.6-8.9) K/mcL BMP 02/10/18 03:43 Sodium 128 L Potassium 4.0 Chloride 95 L Carbon Dioxide 25 BUN 13 Creatinine 0.62 L Glucose 496 H Calcium 8.4 L - ABG Interpretation ABG results: PT/INR, D-dimer PT 11.3 Seconds (9.4-12.1) 02/08/18 10:41 Consult Discharge Plan - Plan Referrals: NONE,PCP [Primary Care Provider] -
[2018-02-11] MEDS: GuaiFENesin Liq 200 MG/10 ML UDC PO SCH ×4 (01:15→17:01)
--- NOTE | 2018-02-11 01:36 | Event Note ---
Date of Encounter: 02/10/18 Time of Encounter: 21:45 Called to floor by patient's nurse regarding patient's hyperglycemia. Pt. told nurse that he was going to eat whatever he wanted because that's what he was told he could do by someone. I explained that he could not eat whatever he wanted due to his diabetes and uncontrolled blood glucose. I explained that I had ordered an HS dose of insulin coverage to help reduce his BG but he had to be compliant with his diet. Pt. expressed understanding but said he would do whatever he wanted. Order placed for HS insulin coverage. Informed by his nurse that pt. refused to take his insulin coverage after ordered. Will continue to monitor pts. BG w/Accucheks.
[2018-02-11] MEDS: *HR* Heparin 5,000 UNIT/ML VIAL SQ SCH ×2 (05:24→17:01)
[2018-02-11 05:31] LABS: BUN/Creatinine Ratio 25 (6-26); Blood Urea Nitrogen 14 mg/dL (6-20); Calcium 8.9 mg/dL (8.6-10.3); Carbon Dioxide 28 mEq/L (23-29); Chloride 96 mEq/L (98-107); Glucose 366 mg/dL (70-105); Osmolality,Calculated 287 (280-300); Sodium 131 mEq/L (136-145); eGFR For African Americans > 60 (> 60); eGFR For Non-African Americans > 60 (> 60)
[2018-02-11] MEDS: Gabapentin 400 MG CAPSULE PO SCH ×3 (08:16→22:19)
[2018-02-11] MEDS: Venlafaxine XR (24 HR) 75 MG CAP.ER.24H PO SCH (08:16)
[2018-02-11] MEDS ORDERED: Furosemide 20 MG/2 ML VIAL IVP STA (09:03)
[2018-02-11] MEDS: Insulin NPH/REG 70/30 100 UNIT/ML (x5UNIT) SQ SCH ×2 (09:27→17:00)
[2018-02-11] MEDS: Insulin LISPRO 300 UNITS/3 ML VIAL SQ SCH ×3 (14:45→22:18)
[2018-02-11 22:22] LABS: Albumin 3.4 g/dL (3.5-5.7); Albumin/Globulin Ratio 1.2 (1.1-2.2); Bilirubin,Direct 0.1 mg/dL (0.0-0.2); Bilirubin,Indirect 0.1 mg/dL (0.0-1.2); Bilirubin,Total 0.2 mg/dL (0.3-1.0); Globulin 2.9 g/dL (2.4-3.5); Total Protein 6.3 g/dL (6.4-8.9)
[2018-02-11] MEDS: *HR* HYDROcodone/Acet 7.5/325 mg TABLET PO PRN (22:24)
[2018-02-12 00:31] LABS: Phenytoin (Dilantin) Free <0.5 ug/mL (1.0-2.5); Phenytoin Dose NOT PROVIDED; Phenytoin Dose Frequency NOT PROVIDED; Phenytoin Route NOT PROVIDED
--- NOTE | 2018-02-12 00:58 | Internal Med Progress Note ---
Date of Encounter: 02/11/18 Time of Encounter: 19:47 - Assessment and plan (1) DKA (diabetic ketoacidoses) Current Visit: Yes Status: Acute Assessment and plan: Blood glucose improving; running in 300s today. Tolerating PO. Continue accuchecks and high dose SSI QID AC/HS. Increase 70/30 insulin to 40 units BID today. Encourage to adhere to diabetic diet. Recheck BMP in AM. Qualifiers: Diabetes mellitus type: type 1 Diabetes mellitus complication detail: without coma Qualified Code(s): E10.10 - Type 1 diabetes mellitus with ketoacidosis without coma (2) Acute kidney injury Current Visit: Yes Status: Resolved Assessment and plan: Resolved. Cr = 0.57. (3) Chest pain Current Visit: Yes Status: Resolved Assessment and plan: Resolved. Unremarkable EKG and troponin WNL. Likely secondary to anxiety. Qualifiers: Chest pain type: unspecified Qualified Code(s): R07.9 - Chest pain, unspecified (4) Leukocytosis Current Visit: Yes Status: Resolved Assessment and plan: Resolved. Likely DKA related. Qualifiers: Leukocytosis type: unspecified Qualified Code(s): D72.829 - Elevated white blood cell count, unspecified (5) IVDU (intravenous drug user) Current Visit: Yes Status: Chronic Assessment and plan: Drug screen positive only for marijuana. Monitor for any signs or symptoms of drug withdrawal. (6) Bipolar 1 disorder, depressed Current Visit: Yes Status: Chronic Assessment and plan: Continue home medications. (7) Hepatitis C Current Visit: Yes Status: Chronic Assessment and plan: Follow up with GI outpatient. Qualifiers: Viral hepatitis chronicity: chronic Hepatic coma status: without hepatic coma Qualified Code(s): B18.2 - Chronic viral hepatitis C (8) Noncompliance with medications Current Visit: Yes Status: Chronic (9) Seizure Current Visit: Yes Status: Chronic Assessment and plan: Continue home medications. (10) DVT prophylaxis Current Visit: Yes Status: Acute Assessment and plan: Continue SC heparin. - Time Spent With Patient less than 15 minutes - Subjective Interval history: Patient had no acute events overnight. He states that he is feeling well today. He has some pain located in this bilateral toes. He states that it is not his usual nerve pain. Tylenol is not helping. He denies chest pain or SOB. Appetite remains very good. He has no new complaints. - Constitutional Vitals: Temp Pulse Resp BP Pulse Ox 98.8 F 94 19 141/97 96 02/11/18 19:11 02/11/18 19:11 02/11/18 19:11 02/11/18 19:11 02/11/18 22:25 General appearance: Present: cooperative, A&O X 3, pleasant, no acute distress, answers questions appropriately - Respiratory Respiratory exam: Present: CTAB. Absent: accessory muscle use, rales, rhonchi, wheezes Additional comments: Normal WOB - Cardiovascular Cardiovascular exam: Present: RRR, +S1, +S2. Absent: diastolic murmur, gallop, rubs, systolic murmur Additional comments: Trace edema in BLE toes - GI/Abdominal GI/Abdominal exam: Present: normal bowel sounds, soft. Absent: distended, hepatomegaly, mass, splenomegaly, tenderness - Extremities Exam Additional comments: Some minor erythema and flaking skin on bottom of BLE toes - Psychiatric Psychiatric exam: Present: normal affect, normal mood. Absent: anxious, depressed - Skin Skin exam: Present: dry, intact, warm. Absent: cyanosis, rash Internal Medicine: Result - Labs CBC & Chem 7: 02/10/18 03:43 02/12/18 05:35 Labs: BMP 02/11/18 04:34 Sodium 131 L Potassium 4.0 Chloride 96 L Carbon Dioxide 28 BUN 14 Creatinine 0.57 L Glucose 366 H Calcium 8.9 Liver Function 02/11/18 Range/Units 21:21 Total Bilirubin 0.2 L (0.3-1.0) mg/dL Direct Bilirubin 0.1 (0.0-0.2) mg/dL AST 59 H (13-39) Units/L ALT 67 H (7-52) Units/L Alkaline Phosphatase 134 H (34-104) Units/L Albumin 3.4 L (3.5-5.7) g/dL - ABG Interpretation ABG results: PT/INR, D-dimer PT 11.3 Seconds (9.4-12.1) 02/08/18 10:41 Consult Discharge Plan - Plan Referrals: NONE,PCP [Primary Care Provider] -
[2018-02-12] MEDS: GuaiFENesin Liq 200 MG/10 ML UDC PO SCH ×3 (01:24→12:11)
[2018-02-12] MEDS: Acetaminophen 325 MG TABLET PO PRN (05:18)
[2018-02-12] MEDS: *HR* Heparin 5,000 UNIT/ML VIAL SQ SCH (05:19)
[2018-02-12 06:20] LABS: BUN/Creatinine Ratio 28 (6-26); Blood Urea Nitrogen 16 mg/dL (6-20); Calcium 9.1 mg/dL (8.6-10.3); Carbon Dioxide 29 mEq/L (23-29); Chloride 98 mEq/L (98-107); Glucose 104 mg/dL (70-105); Osmolality,Calculated 281 (280-300); Sodium 135 mEq/L (136-145); eGFR For African Americans > 60 (> 60); eGFR For Non-African Americans > 60 (> 60)
[2018-02-12 07:19] VITALS: BP 132/91
[2018-02-12] MEDS: *HR* HYDROcodone/Acet 7.5/325 mg TABLET PO PRN (08:29)
[2018-02-12] MEDS: Venlafaxine XR (24 HR) 75 MG CAP.ER.24H PO SCH (08:29)
[2018-02-12] MEDS: Insulin LISPRO 300 UNITS/3 ML VIAL SQ SCH ×2 (08:29→12:11)
[2018-02-12] MEDS: Gabapentin 400 MG CAPSULE PO SCH (08:29)
[2018-02-12] MEDS: Insulin NPH/REG 70/30 100 UNIT/ML (x5UNIT) SQ SCH (08:56)
[2018-02-12 09:39] LABS: Amphetamines NEGATIVE ng/mL (Cutoff 30); Barbiturates NEGATIVE ng/mL (Cutoff 75); Benzodiazepines NEGATIVE ng/mL (Cutoff 75); Cocaine NEGATIVE ng/mL (Cutoff 30); Methadone NEGATIVE ng/mL (Cutoff 40); Methamphetamines NEGATIVE ng/mL (Cutoff 30); Opiates NEGATIVE ng/mL (Cutoff 30); Phencyclidine NEGATIVE ng/mL (Cutoff 15)
--- NOTE | 2018-02-12 12:42 | Discharge Summary ---
- NOTES TO OUTPATIENT PROVIDER Notes to Outpatient Provider: Follow up with PCP in 2-3 days after discharge. Insulin regimen can be further titrated at that time. Date of Encounter: 02/12/18 Time of Encounter: 12:39 - Discharge Diagnosis (1) DKA (diabetic ketoacidoses) Priority: Primary Status: Resolved Qualifiers: Diabetes mellitus type: type 1 Diabetes mellitus complication detail: without coma Qualified Code(s): E10.10 - Type 1 diabetes mellitus with ketoacidosis without coma (2) Acute kidney injury Priority: Secondary Status: Resolved (3) Chest pain Priority: Secondary Status: Resolved Qualifiers: Chest pain type: unspecified Qualified Code(s): R07.9 - Chest pain, unspecified (4) Leukocytosis Priority: Secondary Status: Resolved Qualifiers: Leukocytosis type: unspecified Qualified Code(s): D72.829 - Elevated white blood cell count, unspecified (5) IVDU (intravenous drug user) Priority: Secondary Status: Chronic (6) Bipolar 1 disorder, depressed Priority: Secondary Status: Chronic (7) Hepatitis C Priority: Secondary Status: Chronic Qualifiers: Viral hepatitis chronicity: chronic Hepatic coma status: without hepatic coma Qualified Code(s): B18.2 - Chronic viral hepatitis C (8) Noncompliance with medications Priority: Secondary Status: Chronic (9) Seizure Priority: Secondary Status: Chronic (10) DVT prophylaxis Priority: Secondary Status: Acute Hospital course: Mr. Lemus is a 32 year old male admitted for DKA. He was admitted to general medical floor with telemetry on insulin drip. He had some hypoglycemia the night of admission and insulin drip was stopped. He was started on accuchecks and high dose sliding scale insulin after blood glucose came up toe 400s. His home 70/30 insulin was restarted at home dose of 20 units BID. He refuses to use any other insulin except 70/30 and sliding scale coverage with novolin R. Blood glucose remained unchanged after these insulin changes, so 70/30 was increased to 40 units BID. His blood glucose now on the morning of discharge is in the 100s. His only complaint during this hospitalization was BLE toe pain. Pain improved with gentle diuresis with lasix and PRN tylenol/norco. He had DIO on admission that resolved the next day with IV hydration. Chest pain and leukocytosis resolved after admission. He will follow up with his PCP in 2- 3 days after discharge. PCP can futher adjust his insulin at that time based on home blood glucose log. Patient has met maximum benefit of this hospitalization and will be discharged home in stable condition. Discharge discussed with: patient, nurse - Time Spent with Patient Total time spent providing and/or coordinating discharge services: Greater than 30 minutes - Discharge Medications Prescriptions: RX: HYDROcodone/Acet 7.5/325 mg [[place] 7.5-325 mg] 1 tab PO Q8HR PRN 2 Days #6 tablet PRN Reason: Severe Pain Home Medications: Naproxen 500 mg PO BID PRN #60 tablet 12/05/17 [Rx] Venlafaxine HCl [Venlafaxine HCl ER] 75 mg PO DAILY 01/23/18 [History] Gabapentin [Neurontin] 800 mg PO TID #90 tablet 02/04/18 [Rx] Lisinopril [Zestril] 5 mg PO DAILY 30 Days #30 tablet 02/04/18 [Rx] Phenytoin ER [Dilantin ER] 100 mg PO TID #90 capsule 02/04/18 [Rx] hydrOXYzine pamoate [HydrOXYzine Pamoate] 25 mg PO TID PRN #90 capsule 02/04/18 [Rx] Insulin Regular Human [Humulin R] 2 - 10 unit SQ BID 02/08/18 [History] Quetiapine Fumarate [Seroquel] 300 mg PO HS 02/08/18 [History] Acetaminophen [Tylenol] 650 mg PO Q6HR PRN tablet 02/12/18 [Rx] HYDROcodone/Acet 7.5/325 mg [[place] 7.5-325 mg] 1 tab PO Q8HR PRN 2 Days #6 tablet 02/12/18 [Rx] Insulin NPH/REG 70/30 (HUMAN) [Humulin 70/30 Vial] 40 unit SQ BIDAC [id number] [Rx] Allergies/Adverse Reactions: 3 Allergy/AdvReac Type Severity Reaction Status Date / Time insulin glargine Allergy Blister Verified 01/31/18 21:28 [From Lantus] diphenhydramine AdvReac Intermediate See Verified 02/01/18 07:46 [From Benadryl] Comments Date of admission: 02/08/18 17:00 Primary care physician: PCP NONE Consults: 02/08/18 19:17 Consult to Nutrition [CONS] Routine Comment: Consulting Provider: NUTRITION Reason for Dietary Consult: Other Other:: lost 20 pounds 02/09/18 08:32 Consult to Diabetes Education [CONS] Stat Comment: Reason for Consult: DKA, DM 02/09/18 17:13 Consult to Mask Designer [CONS] Routine Reason for SW Consult: substance abuse; ? homeless; patient seen by with previous admissions Discharging clinician: Philip Hanson Anticipated date of discharge: 02/12/18 - Constitutional Vitals: Temp Pulse Resp BP Pulse Ox 97.9 F 90 15 132/91 97 02/12/18 07:17 02/12/18 07:17 02/12/18 07:17 02/12/18 07:17 02/12/18 07:17 General appearance: Present: cooperative, A&O X 3, pleasant, no acute distress, answers questions appropriately - Respiratory Respiratory exam: Present: accessory muscle use, CTAB. Absent: rales, rhonchi, wheezes Additional comments: Normal WOB - Cardiovascular Cardiovascular exam: Present: RRR, +S1, +S2. Absent: diastolic murmur, gallop, rubs, systolic murmur Additional comments: Trace edema of BLE toes, improved from yesterday - GI/Abdominal GI/Abdominal exam: Present: normal bowel sounds, soft. Absent: distended, hepatomegaly, mass, splenomegaly, tenderness - Extremities Exam Additional comments: Some minor erythema and flaking skin on bottom of BLE toes - Psychiatric Psychiatric exam: Present: normal affect, normal mood. Absent: anxious, depressed - Skin Skin exam: Present: dry, intact, warm. Absent: cyanosis, rash - Patient Status Disposition: Home, Self-Care Condition: Good Functional capacity at discharge: independent ambulation Overall status at discharge: patient is back to baseline - Discharge Instructions Follow Up With: NONE,PCP [Primary Care Provider] - Additional Instructions: Follow up with PCP in 2-3 days after discharge. Insulin regimen can be further titrated at that time. - Diet and Activity Activity: resume usual activities as tolerated Diet: diabetic diet
[2018-02-13 09:19] LABS: Phenytoin Type of Draw NOT PROVIDED
== END 2018-02-12 16:27 | disposition home or self-care (01) | DRG 420 ==
LOC: EMEROO 10:03 → 2NENU 17:00
PROVIDERS: ADMIT Student in an Organized Health Care Education/Training Program; ATTEND Family Medicine

== ENCOUNTER 2018-03-01 12:47 | Observation (INO) ==
[2018-03-01 14:27] LABS: Basophils % 0.2 %; Eosinophils % 0.1 %; Hematocrit 35.7 % (37.5-50.1); Hemoglobin 11.9 g/dL (12.9-16.9); Immature Granulocytes % 0.6 % (0-4); Lymphocytes # 0.9 K/mcL (0.6-4.6); Lymphocytes % 6.8 %; Mean Corpuscular HGB Conc 33.3 g/dL (31.6-35.5); Mean Corpuscular Hemoglobin 29.5 pg (28.0-33.3); Mean Corpuscular Volume 88.4 fL (83.0-100.0); Mean Platelet Volume 9.5 fL (9.4-12.4); Monocytes # 0.5 K/mcL (0.0-1.3); Monocytes % 3.4 %; Neutrophils # 11.7 K/mcL (1.6-8.9); Platelet Count 262 K/mcL (140-400); Red Blood Count 4.04 M/mcL (4.19-5.50); Red Cell Distribution Width 13.4 % (11.5-14.5); Segmented Neutrophils % 88.9 %
[2018-03-01 14:49] LABS: Alanine Aminotransferase 49 Units/L (7-52); Albumin 3.8 g/dL (3.5-5.7); Albumin/Globulin Ratio 1.6 (1.1-2.2); Alkaline Phosphatase 134 Units/L (34-104); Aspartate Amino Transferase 41 Units/L (13-39); BUN/Creatinine Ratio 14 (6-26); Bilirubin,Direct 0.2 mg/dL (0.0-0.2); Bilirubin,Indirect 0.4 mg/dL (0.0-1.2); Bilirubin,Total 0.6 mg/dL (0.3-1.0); Blood Urea Nitrogen 12 mg/dL (6-20); Calcium 8.9 mg/dL (8.6-10.3); Carbon Dioxide 21 mEq/L (23-29); Chloride 93 mEq/L (98-107); Globulin 2.4 g/dL (2.4-3.5); Glucose 543 mg/dL (70-105); Osmolality,Calculated 290 (280-300); Sodium 128 mEq/L (136-145); Total Protein 6.2 g/dL (6.4-8.9); eGFR For African Americans > 60 (> 60); eGFR For Non-African Americans > 60 (> 60)
[2018-03-01] MEDS ORDERED: *HR* FentaNYL (PF) 100 MCG/2 ML VIAL IVP ONE (15:21)
[2018-03-01] MEDS ORDERED: Ondansetron 4 MG/2 ML VIAL IVP ONE (15:21)
--- NOTE | 2018-03-01 15:47 | Emergency Department Note ---
Disposition Clinical Impression: Hyperglycemia, Poorly controlled diabetes mellitus, Dehydration, Atypical chest pain Disposition: Admitted As Inpatient Condition: Fair General Adult HPI - General Chief complaint: ED Back Pain/Injury Stated complaint: Hyperglycemia Time Seen by Provider: 03/01/18 14:57 Source: patient Limitations: no limitations - History of Present Illness Pain Scale: 7 - Related Data Home Medications Medication Instructions Recorded Confirmed Venlafaxine HCl [Venlafaxine HCl 75 mg PO DAILY 01/23/18 03/02/18 ER] Insulin Regular Human [Humulin R] 2 - 10 unit SQ BID 02/08/18 03/02/18 Quetiapine Fumarate [Seroquel] 300 mg PO HS 02/08/18 03/02/18 Previous Rx's Medication Instructions Recorded Naproxen 500 mg PO BID PRN #60 tablet 12/05/17 Gabapentin [Neurontin] 800 mg PO TID #90 tablet 02/04/18 Lisinopril [Zestril] 5 mg PO DAILY 30 Days #30 tablet 02/04/18 Phenytoin ER [Dilantin ER] 100 mg PO TID #90 capsule 02/04/18 hydrOXYzine pamoate [HydrOXYzine 25 mg PO TID PRN #90 capsule 02/04/18 Pamoate] Acetaminophen [Tylenol] 650 mg PO Q6HR PRN tablet 02/12/18 Insulin NPH/REG 70/30 (HUMAN) 40 unit SQ BIDAC [id number] 02/12/18 [Humulin 70/30 Vial] Allergies Allergy/AdvReac Type Severity Reaction Status Date / Time insulin glargine Allergy Blister Verified 03/01/18 13:19 [From Lantus] diphenhydramine AdvReac Intermediate See Verified 03/01/18 13:19 [From Benadryl] Comments Past Medical History - Past Medical History Medical history: Reports: diabetes, hepatitis, seizures Surgical history: Reports: no surgical history Psychiatric history: Reports: anxiety, bipolar, depression, prior suicide attempt, previous psychiatric hospitalization - Social History Smoking Status: Current every day smoker Smokeless Tobacco Status: No Alcohol use: Reports: rarely Drug use: Reports: marijuana, methamphetamine Physical Exam - General Limitations: no limitations General appearance: alert, in no apparent distress Course Vital Signs Temperature 97.7 F 03/01/18 13:16 Pulse Rate 108 03/01/18 13:16 Respiratory Rate 18 03/01/18 13:16 Blood Pressure 128/62 03/01/18 13:16 O2 Sat by Pulse Oximetry 99 03/01/18 13:16 Temperature 98.3 F 03/02/18 18:48 Pulse Rate 80 03/02/18 18:48 Respiratory Rate 14 03/02/18 18:48 Blood Pressure 120/69 03/02/18 18:48 O2 Sat by Pulse Oximetry 96 03/02/18 18:48 Oxygen Delivery Oxygen Delivery Room Air Medical Decision Making - Lab Data Result diagrams: 03/02/18 06:04 03/02/18 06:04 Lab Results 03/01/18 03/01/18 03/01/18 Range/Units 13:22 13:24 13:54 WBC (4.3-11.1) K/mcL RBC (4.19-5.50) M/mcL Hgb (12.9-16.9) g/dL Hct (37.5-50.1) % MCV (83.0-100.0) fL MCH (28.0-33.3) pg MCHC (31.6-35.5) g/dL RDW (11.5-14.5) % Plt Count (140-400) K/mcL MPV (9.4-12.4) fL Immature Gran % (0-4) % Seg Neutrophils % % Lymphocytes % % Monocytes % % Eosinophils % % Basophils % % Neutrophils # (1.6-8.9) K/mcL Lymphocytes # (0.6-4.6) K/mcL Monocytes # (0.0-1.3) K/mcL Eosinophils # (0.0-0.6) K/mcL Basophils # (0.0-0.2) K/mcL VBG pH (7.32-7.42) pH Units VBG pCO2 (41-51) mmHg VBG pO2 (25-50) mmHg VBG HCO3 (21-27) mEq/L Sodium (136-145) mEq/L Potassium (3.5-5.1) mEq/L Chloride (98-107) mEq/L Carbon Dioxide (23-29) mEq/L BUN (6-20) mg/dL Creatinine (0.70-1.30) mg/dL Est GFR ( Amer) (> 60) Est GFR (Non-Af Amer) (> 60) BUN/Creatinine Ratio (6-26) Glucose (70-105) mg/dL POC Glucose 549 H* 539 H* (70-99) mg/dL Est Mean Plasma Glucose mg/dl Hemoglobin A1c ( - 5.6) % Calculated Osmolality (280-300) Calcium (8.6-10.3) mg/dL Total Bilirubin (0.3-1.0) mg/dL Direct Bilirubin (0.0-0.2) mg/dL Indirect Bilirubin (0.0-1.2) mg/dL AST (13-39) Units/L ALT (7-52) Units/L Alkaline Phosphatase (34-104) Units/L Troponin I (< 0.04) ng/mL Serum Total Protein (6.4-8.9) g/dL Albumin (3.5-5.7) g/dL Globulin (2.4-3.5) g/dL Albumin/Globulin Ratio (1.1-2.2) Urine Color Yellow (Yellow) Urine Clarity Clear (Clear) Urine pH 6.0 (5.0-8.0) pH Units Ur Specific [place] > 1.030 H (1.010-1.025) Urine Protein Negative (Neg-Trace) mg/dL Urine Glucose (UA) >=1000 H (Normal) mg/dL Urine Ketones 40 H (Negative) mg/dL Urine Blood Negative (Negative) Urine Nitrite Negative (Negative) Urine Bilirubin Negative (Negative) Urine Urobilinogen Normal (Normal) mg/dL Ur Leukocyte Esterase Negative (Negative) 03/01/18 03/01/18 03/01/18 Range/Units 13:55 13:55 13:55 WBC 13.2 H (4.3-11.1) K/mcL RBC 4.04 L (4.19-5.50) M/mcL Hgb 11.9 L (12.9-16.9) g/dL Hct 35.7 L (37.5-50.1) % MCV 88.4 (83.0-100.0) fL MCH 29.5 (28.0-33.3) pg MCHC 33.3 (31.6-35.5) g/dL RDW 13.4 (11.5-14.5) % Plt Count 262 (140-400) K/mcL MPV 9.5 (9.4-12.4) fL Immature Gran % 0.6 (0-4) % Seg Neutrophils % 88.9 % Lymphocytes % 6.8 % Monocytes % 3.4 % Eosinophils % 0.1 % Basophils % 0.2 % Neutrophils # 11.7 H (1.6-8.9) K/mcL Lymphocytes # 0.9 (0.6-4.6) K/mcL Monocytes # 0.5 (0.0-1.3) K/mcL Eosinophils # 0.0 (0.0-0.6) K/mcL Basophils # 0.0 (0.0-0.2) K/mcL VBG pH (7.32-7.42) pH Units VBG pCO2 (41-51) mmHg VBG pO2 (25-50) mmHg VBG HCO3 (21-27) mEq/L Sodium 128 L (136-145) mEq/L Potassium 4.0 (3.5-5.1) mEq/L Chloride 93 L (98-107) mEq/L Carbon Dioxide 21 L (23-29) mEq/L BUN 12 (6-20) mg/dL Creatinine 0.87 (0.70-1.30) mg/dL Est GFR ( Amer) > 60 (> 60) Est GFR (Non-Af Amer) > 60 (> 60) BUN/Creatinine Ratio 14 (6-26) Glucose 543 H* (70-105) mg/dL POC Glucose (70-99) mg/dL Est Mean Plasma Glucose 275 mg/dl Hemoglobin A1c 11.2 H ( - 5.6) % Calculated Osmolality 290 (280-300) Calcium 8.9 (8.6-10.3) mg/dL Total Bilirubin 0.6 (0.3-1.0) mg/dL Direct Bilirubin 0.2 (0.0-0.2) mg/dL Indirect Bilirubin 0.4 (0.0-1.2) mg/dL AST 41 H (13-39) Units/L ALT 49 (7-52) Units/L Alkaline Phosphatase 134 H (34-104) Units/L Troponin I < 0.03 (< 0.04) ng/mL Serum Total Protein 6.2 L (6.4-8.9) g/dL Albumin 3.8 (3.5-5.7) g/dL Globulin 2.4 (2.4-3.5) g/dL Albumin/Globulin Ratio 1.6 (1.1-2.2) Urine Color (Yellow) Urine Clarity (Clear) Urine pH (5.0-8.0) pH Units Ur Specific [place] (1.010-1.025) Urine Protein (Neg-Trace) mg/dL Urine Glucose (UA) (Normal) mg/dL Urine Ketones (Negative) mg/dL Urine Blood (Negative) Urine Nitrite (Negative) Urine Bilirubin (Negative) Urine Urobilinogen (Normal) mg/dL Ur Leukocyte Esterase (Negative) 03/01/18 Range/Units 18:49 WBC (4.3-11.1) K/mcL RBC (4.19-5.50) M/mcL Hgb (12.9-16.9) g/dL Hct (37.5-50.1) % MCV (83.0-100.0) fL MCH (28.0-33.3) pg MCHC (31.6-35.5) g/dL RDW (11.5-14.5) % Plt Count (140-400) K/mcL MPV (9.4-12.4) fL Immature Gran % (0-4) % Seg Neutrophils % % Lymphocytes % % Monocytes % % Eosinophils % % Basophils % % Neutrophils # (1.6-8.9) K/mcL Lymphocytes # (0.6-4.6) K/mcL Monocytes # (0.0-1.3) K/mcL Eosinophils # (0.0-0.6) K/mcL Basophils # (0.0-0.2) K/mcL VBG pH 7.41 (7.32-7.42) pH Units VBG pCO2 45 (41-51) mmHg VBG pO2 146 H (25-50) mmHg VBG HCO3 28 H (21-27) mEq/L Sodium (136-145) mEq/L Potassium (3.5-5.1) mEq/L Chloride (98-107) mEq/L Carbon Dioxide (23-29) mEq/L BUN (6-20) mg/dL Creatinine (0.70-1.30) mg/dL Est GFR ( Amer) (> 60) Est GFR (Non-Af Amer) (> 60) BUN/Creatinine Ratio (6-26) Glucose (70-105) mg/dL POC Glucose (70-99) mg/dL Est Mean Plasma Glucose mg/dl Hemoglobin A1c ( - 5.6) % Calculated Osmolality (280-300) Calcium (8.6-10.3) mg/dL Total Bilirubin (0.3-1.0) mg/dL Direct Bilirubin (0.0-0.2) mg/dL Indirect Bilirubin (0.0-1.2) mg/dL AST (13-39) Units/L ALT (7-52) Units/L Alkaline Phosphatase (34-104) Units/L Troponin I (< 0.04) ng/mL Serum Total Protein (6.4-8.9) g/dL Albumin (3.5-5.7) g/dL Globulin (2.4-3.5) g/dL Albumin/Globulin Ratio (1.1-2.2) Urine Color (Yellow) Urine Clarity (Clear) Urine pH (5.0-8.0) pH Units Ur Specific [place] (1.010-1.025) Urine Protein (Neg-Trace) mg/dL Urine Glucose (UA) (Normal) mg/dL Urine Ketones (Negative) mg/dL Urine Blood (Negative) Urine Nitrite (Negative) Urine Bilirubin (Negative) Urine Urobilinogen (Normal) mg/dL Ur Leukocyte Esterase (Negative) Attestation Statement - Attestation Attestation: I examined this patient and my medical decision-making was reviewed with the PET HANDLER/PA/Advanced Practice Nurse/Resident Physician. I agree with the documented findings, disposition and treatment plan as described except to the extent set forth below. I did see the patient in the [place] and examined him and he does have a history of diabetes and injection methamphetamine use and presents today with back pain and elevated blood sugar. I did review his labs. Receive IV fluids and be admitted to the hospital. The patient denies any fevers. No confusion. When I examined him he does answer questions but does not seem upset because it took several attempts to get the IV placed. Patient is mentating well however based on his laboratory evaluation does have significant illness. [id number] I did review the patient's EKG showing normal sinus rhythm with rate of 81 without acute ischemic change or arrhythmia and there is some minimal T-wave flattening in lead aVL. On my exam abdomen is soft and nontender without rigidity, rebound, guarding. Additional labs are pending. Patient is ambulatory. [id number]
[2018-03-01] MEDS ORDERED: 0.9 % Sodium Chloride 1,000 ML IVC ONE ×2 (15:53→17:52)
--- NOTE | 2018-03-01 16:20 | Emergency Department Note ---
Disposition Clinical Impression: Hyperglycemia, Poorly controlled diabetes mellitus, Dehydration, Atypical chest pain Disposition: Admitted As Inpatient Condition: Fair Referrals: NONE,PCP [Primary Care Provider] - Forms: ED Satisfaction Letter Time of Disposition: 18:18 General Adult HPI - General Chief complaint: ED Back Pain/Injury Stated complaint: Hyperglycemia Time Seen by Provider: 03/01/18 14:57 Source: patient Mode of arrival: ambulatory Limitations: no limitations Nursing Notes Reviewed: Yes Vital Signs Reviewed: Yes - History of Present Illness HPI Narrative: Patient is a 32-year-old male with a past medical history of insulin-dependent diabetes, hep C, IVDU, and bipolar disorder, presenting to the emergency department for the complaint of elevated blood glucose, "kidney pain", and chest pain. The patient states his symptoms have been going on intermittently over the past at least 3 months due to his poorly controlled blood sugar. He states that he has been seen in the hospital multiple times for his blood sugar. The chest pain in particular started today at around 8AM, he describes it as mild, aching, without radiation and does not notice alleviating or exacerbating factors. He denies any fevers, headache, nausea, vomiting, shortness of breath, abdominal pain or lower extremity swelling. He does admit to dysuria. Patient states he has no primary care follow-up and he also admits to doing meth at 2 AM. Pain Scale: 7 - Related Data Home Medications Medication Instructions Recorded Confirmed Venlafaxine HCl [Venlafaxine HCl 75 mg PO DAILY 01/23/18 02/08/18 ER] Insulin Regular Human [Humulin R] 2 - 10 unit SQ BID 02/08/18 02/08/18 Quetiapine Fumarate [Seroquel] 300 mg PO HS 02/08/18 02/08/18 Previous Rx's Medication Instructions Recorded Naproxen 500 mg PO BID PRN #60 tablet 12/05/17 Gabapentin [Neurontin] 800 mg PO TID #90 tablet 02/04/18 Lisinopril [Zestril] 5 mg PO DAILY 30 Days #30 tablet 02/04/18 Phenytoin ER [Dilantin ER] 100 mg PO TID #90 capsule 02/04/18 hydrOXYzine pamoate [HydrOXYzine 25 mg PO TID PRN #90 capsule 02/04/18 Pamoate] Acetaminophen [Tylenol] 650 mg PO Q6HR PRN tablet 02/12/18 HYDROcodone/Acet 7.5/325 mg [[place] 1 tab PO Q8HR PRN 2 Days #6 tablet 02/12/18 7.5-325 mg] Insulin NPH/REG 70/30 (HUMAN) 40 unit SQ BIDAC [id number] 02/12/18 [Humulin 70/30 Vial] Allergies Allergy/AdvReac Type Severity Reaction Status Date / Time insulin glargine Allergy Blister Verified 03/01/18 13:19 [From Lantus] diphenhydramine AdvReac Intermediate See Verified 03/01/18 13:19 [From Benadryl] Comments All systems ED: reviewed and negative except as stated. Review of Systems: As Per HPI Constitutional: Denies: fever, chills ENT ED: Denies: congestion Cardiovascular: Reports: chest pain. Denies: palpitations, dyspnea on exertion , syncope Respiratory: Denies: cough, dyspnea, wheezes Gastrointestinal: Denies: abdominal pain, nausea, vomiting Genitourinary: Reports: dysuria, frequency (decreased) Musculoskeletal: Reports: back pain (Bilateral flank pain). Denies: neck pain Integumentary: Denies: rash Neurological: Denies: headache Past Medical History - Past Medical History Attestation: Yes The following information was validated with the patient. Medical history: Reports: diabetes, hepatitis, seizures Surgical history: Reports: no surgical history Psychiatric history: Reports: anxiety, bipolar, depression, prior suicide attempt, previous psychiatric hospitalization - Social History Smoking Status: Current every day smoker Smokeless Tobacco Status: No Alcohol use: Reports: rarely Drug use: Reports: marijuana, methamphetamine Physical Exam CONSTITUTIONAL: A&O X 3, in no apparent distress. The patient sits in a chair with his head down throughout most of my questioning. He is in no acute distress at this time. He speaks with frustration and it is difficult to obtain specific information from him. HEAD: Normocephalic; atraumatic EYES: PERRL, no scleral icterus NOSE: The nose is normal in appearance without rhinorrhea NECK: No JVD or distended neck veins RESP: Normal chest excursion with respiration; breath sounds clear and equal bilaterally; no wheezes, rhonchi, or rales CARD: Regular rhythm, without murmurs, rub or gallop ABD: Non-distended; non-tender, soft, without rigidity, rebound or guarding,no pulsatile mass CHEST: No pain with palpation SKIN: Normal for age and race; warm and dry without diaphoresis ; no apparent lesions EXTREMITIES: Pulses are 2 plus and equal times 4 extremities, no peripheral edema or calf muscle pain - General Limitations: no limitations General appearance: alert, in no apparent distress Course Course Narrative: Plan at this time is to order basic labs to evaluate specifically for an anion gap and the extent of the patient's hyperglycemia. We will also order additional labs to evaluate the patient's chest pain which will include a troponin as well as obtaining an EKG and chest x-ray. While waiting the patient will be given a 1 L bolus of normal saline. The patient was recently discharged from the hospital on February 122017 in which she was presented with similar complaints and was seen by cardiology and had a TTE which showed normal ejection fraction and normal wall movement. The patient also initially had a mildly elevated troponin which resolved with treatment of his hyperglycemia and was considered to be due to demand ischemia. The patient was also restarted on his home insulin and he refuses to change his current regimen so his dose of 70/30 was increased to 40 units BID patient was given follow-up with PCP. - Reevaluation(s) Reevaluation #1: I discussed with the patient the plan to admit him to the hospital for improved glucose control as well as dehydration. Discussed that he will receive another liter of IV fluids. We will order 10 units of SQ humulin. I also discussed with the patient has been having chest pain since 8 AM this morning, however given the onset of his pain and his initial troponin being negative and an EKG without ischemic changes I do think that this is an atypical chest pain and most likely unrelated to a cardiac etiology. I discussed the patient's case with the hospitalist on-call and they agree with this plan and they requested that I order a VBG from the emergency department and they will follow up with this. Patient accepted to the hospital by Dr. Bosch. Time: 18:17 Vital Signs Temperature 97.7 F 03/01/18 13:16 Pulse Rate 108 03/01/18 13:16 Respiratory Rate 18 03/01/18 13:16 Blood Pressure 128/62 03/01/18 13:16 O2 Sat by Pulse Oximetry 99 04/04/18 13:16 Temperature 97.7 F 03/01/18 13:16 Pulse Rate 75 03/01/18 17:06 Respiratory Rate 16 03/01/18 17:06 Blood Pressure 109/73 03/01/18 17:06 O2 Sat by Pulse Oximetry 97 03/01/18 17:06 Oxygen Delivery Oxygen Delivery Room Air Medical Decision Making - Medical Records Medical records reviewed: Yes I reviewed the patient's medical records. - Lab Data Lab results reviewed: Yes I reviewed the patient's lab results. Result diagrams: 03/01/18 13:55 03/01/18 13:55 Lab Results 03/01/18 03/01/18 03/01/18 Range/Units 13:22 13:24 13:54 WBC (4.3-11.1) K/mcL RBC (4.19-5.50) M/mcL Hgb (12.9-16.9) g/dL Hct (37.5-50.1) % MCV (83.0-100.0) fL MCH (28.0-33.3) pg MCHC (31.6-35.5) g/dL RDW (11.5-14.5) % Plt Count (140-400) K/mcL MPV (9.4-12.4) fL Immature Gran % (0-4) % Seg Neutrophils % % Lymphocytes % % Monocytes % % Eosinophils % % Basophils % % Neutrophils # (1.6-8.9) K/mcL Lymphocytes # (0.6-4.6) K/mcL Monocytes # (0.0-1.3) K/mcL Eosinophils # (0.0-0.6) K/mcL Basophils # (0.0-0.2) K/mcL Sodium (136-145) mEq/L Potassium (3.5-5.1) mEq/L Chloride (98-107) mEq/L Carbon Dioxide (23-29) mEq/L BUN (6-20) mg/dL Creatinine (0.70-1.30) mg/dL Est GFR ( Amer) (> 60) Est GFR (Non-Af Amer) (> 60) BUN/Creatinine Ratio (6-26) Glucose (70-105) mg/dL POC Glucose 549 H* 539 H* (70-99) mg/dL Calculated Osmolality (280-300) Calcium (8.6-10.3) mg/dL Total Bilirubin (0.3-1.0) mg/dL Direct Bilirubin (0.0-0.2) mg/dL Indirect Bilirubin (0.0-1.2) mg/dL AST (13-39) Units/L ALT (7-52) Units/L Alkaline Phosphatase (34-104) Units/L Troponin I (< 0.04) ng/mL Serum Total Protein (6.4-8.9) g/dL Albumin (3.5-5.7) g/dL Globulin (2.4-3.5) g/dL Albumin/Globulin Ratio (1.1-2.2) Urine Color Yellow (Yellow) Urine Clarity Clear (Clear) Urine pH 6.0 (5.0-8.0) pH Units Ur Specific [place] > 1.030 H (1.010-1.025) Urine Protein Negative (Neg-Trace) mg/dL Urine Glucose (UA) >=1000 H (Normal) mg/dL Urine Ketones 40 H (Negative) mg/dL Urine Blood Negative (Negative) Urine Nitrite Negative (Negative) Urine Bilirubin Negative (Negative) Urine Urobilinogen Normal (Normal) mg/dL Ur Leukocyte Esterase Negative (Negative) 03/01/18 03/01/18 Range/Units 13:55 13:55 WBC 13.2 H (4.3-11.1) K/mcL RBC 4.04 L (4.19-5.50) M/mcL Hgb 11.9 L (12.9-16.9) g/dL Hct 35.7 L (37.5-50.1) % MCV 88.4 (83.0-100.0) fL MCH 29.5 (28.0-33.3) pg MCHC 33.3 (31.6-35.5) g/dL RDW 13.4 (11.5-14.5) % Plt Count 262 (140-400) K/mcL MPV 9.5 (9.4-12.4) fL Immature Gran % 0.6 (0-4) % Seg Neutrophils % 88.9 % Lymphocytes % 6.8 % Monocytes % 3.4 % Eosinophils % 0.1 % Basophils % 0.2 % Neutrophils # 11.7 H (1.6-8.9) K/mcL Lymphocytes # 0.9 (0.6-4.6) K/mcL Monocytes # 0.5 (0.0-1.3) K/mcL Eosinophils # 0.0 (0.0-0.6) K/mcL Basophils # 0.0 (0.0-0.2) K/mcL Sodium 128 L (136-145) mEq/L Potassium 4.0 (3.5-5.1) mEq/L Chloride 93 L (98-107) mEq/L Carbon Dioxide 21 L (23-29) mEq/L BUN 12 (6-20) mg/dL Creatinine 0.87 (0.70-1.30) mg/dL Est GFR ( Amer) > 60 (> 60) Est GFR (Non-Af Amer) > 60 (> 60) BUN/Creatinine Ratio 14 (6-26) Glucose 543 H* (70-105) mg/dL POC Glucose (70-99) mg/dL Calculated Osmolality 290 (280-300) Calcium 8.9 (8.6-10.3) mg/dL Total Bilirubin 0.6 (0.3-1.0) mg/dL Direct Bilirubin 0.2 (0.0-0.2) mg/dL Indirect Bilirubin 0.4 (0.0-1.2) mg/dL AST 41 H (13-39) Units/L ALT 49 (7-52) Units/L Alkaline Phosphatase 134 H (34-104) Units/L Troponin I < 0.03 (< 0.04) ng/mL Serum Total Protein 6.2 L (6.4-8.9) g/dL Albumin 3.8 (3.5-5.7) g/dL Globulin 2.4 (2.4-3.5) g/dL Albumin/Globulin Ratio 1.6 (1.1-2.2) Urine Color (Yellow) Urine Clarity (Clear) Urine pH (5.0-8.0) pH Units Ur Specific [place] (1.010-1.025) Urine Protein (Neg-Trace) mg/dL Urine Glucose (UA) (Normal) mg/dL Urine Ketones (Negative) mg/dL Urine Blood (Negative) Urine Nitrite (Negative) Urine Bilirubin (Negative) Urine Urobilinogen (Normal) mg/dL Ur Leukocyte Esterase (Negative) - Radiology Data Radiology results reviewed: Yes I reviewed the patient's radiology results. Chest X-Ray 03/01/18 15:53 IMPRESSION: Density at the right lung base which could reflect a soft tissue shadow. Recommend clinical correlation as well as repeat exam with PA and lateral positioning for further evaluation. D/ / Arnel Ramirez MD / Arnel Ramirez MD Interpreting Provider: Arnel Ramirez MD - EKG Data EKG #1 EKG attestation: Yes I reviewed and interpreted this EKG. EKG results narrative: EKG done at 16:30 shows sinus rhythm at a rate of 81 bpm. Normal axis. TN is 120, QRS is 90, QT is 380 and QTc is 417 and these are within normal limits. No signs of ST elevation, ST depression or Q waves present at this time. I have no old EKG for comparison. Essentially normal EKG.
[2018-03-01 16:22] LABS: Troponin I < 0.03 ng/mL (< 0.04)
[2018-03-01 17:22] LABS: Bilirubin,Urine Negative (Negative); Blood,Urine Negative (Negative); Clarity,Urine Clear (Clear); Color,Urine Yellow (Yellow); Glucose,Urine (UA) >=1000 mg/dL (Normal); Ketones,Urine 40 mg/dL (Negative); Leukocyte Esterase,Urine Negative (Negative); Nitrite,Urine Negative (Negative); Protein,Urine Negative (Neg-Trace); Specific Gravity,Urine > 1.030 (1.010-1.025); Urobilinogen,Urine Normal (Normal)
[2018-03-01] MEDS ORDERED: Insulin Regular, Human 100 UNIT/ML SQ ONE (18:25)
[2018-03-01 18:52] LABS: VBG HCO3 28 mEq/L (21-27); VBG PCO2 45 mmHg (41-51); VBG PH 7.41 pH Units (7.32-7.42); VBG PO2 146 mmHg (25-50)
[2018-03-01] MEDS ORDERED: Acetaminophen 325 MG TABLET PO PRN (19:44)
[2018-03-01] MEDS ORDERED: Naloxone 0.4 MG/ML INJ IVP PRN (19:44)
[2018-03-01] MEDS ORDERED: D5% in Water 1,000 ML IVC PRN (19:47)
[2018-03-01] MEDS ORDERED: Dextrose Gel 15 GM/37.5 ML TUBE PO PRN ×2 (19:47)
[2018-03-01] MEDS ORDERED: *HR* Dextrose 50 % in Water (Syg) 50 ML SYRINGE IVP PRN (19:47)
[2018-03-01] MEDS ORDERED: hydrOXYzine pamoate 25 MG CAPSULE PO PRN (19:48)
[2018-03-01] MEDS: *HR* HYDROcodone/Acet 5/325 mg TABLET PO PRN (21:21)
[2018-03-01] MEDS: Insulin LISPRO 300 UNITS/3 ML VIAL SQ SCH (21:21)
[2018-03-01] MEDS: Gabapentin 400 MG CAPSULE PO SCH (21:22)
[2018-03-01] MEDS: 0.9 % Sodium Chloride 1,000 ML IVC SCH (21:23)
--- NOTE | 2018-03-01 21:36 | Internal Med History&Physical ---
Date of Encounter: 03/01/18 Time of Encounter: 19:45 Internal Medicine - H&P: HPI Chief complaint: Body aches and hyperglycemia Admitted From: Emergency Dept Plans for Post Hospital Care: Home History of present illness: Mr. Lemus is a 32 year old male with known PMH of insulin-dependent diabetes, hep C, IVDU, and bipolar disorder, presented to the emergency department for the complaint of elevated blood glucose and body aches. He did mention he stopped taking insulin from last few days and now he is concerned about his blood sugars are so high. He does c/o generalized body aches and rt flank pain. Denied any dysuria. Denied any N/V. He also admits to doing meth this morning Past Med Surg Social Fam HX - Past Medical History Medical history: diabetes, hepatitis, seizures Psychiatric history: anxiety, bipolar, depression, prior suicide attempt, previous psychiatric hospitalization - Past Surgical History Surgical History: no surgical history - Social History Smoking Status: Current every day smoker Packs per day: 1 Smokeless Tobacco Status: No Alcohol use: rarely Drug use: marijuana, methamphetamine - Family History Father Family Member Ethnicity: Non- Living Status: Hx Family Cardiac Disorders: Yes ([place]) Hx Family Endocrine Disorder: Yes (DM) Mother Family Member Ethnicity: Non- Living Status: Still Living Sister Family Member Ethnicity: Non- Living Status: Still Living Internal Medicine - H&P: Meds Naproxen 500 mg PO BID PRN #60 tablet 12/05/17 [Rx] Venlafaxine HCl [Venlafaxine HCl ER] 75 mg PO DAILY 01/23/18 [History] Gabapentin [Neurontin] 800 mg PO TID #90 tablet 02/04/18 [Rx] Lisinopril [Zestril] 5 mg PO DAILY 30 Days #30 tablet 02/04/18 [Rx] Phenytoin ER [Dilantin ER] 100 mg PO TID #90 capsule 02/04/18 [Rx] hydrOXYzine pamoate [HydrOXYzine Pamoate] 25 mg PO TID PRN #90 capsule 02/04/18 [Rx] Insulin Regular Human [Humulin R] 2 - 10 unit SQ BID 02/08/18 [History] Quetiapine Fumarate [Seroquel] 300 mg PO HS 02/08/18 [History] Acetaminophen [Tylenol] 650 mg PO Q6HR PRN tablet 02/12/18 [Rx] HYDROcodone/Acet 7.5/325 mg [[place] 7.5-325 mg] 1 tab PO Q8HR PRN 2 Days #6 tablet 02/12/18 [Rx] Insulin NPH/REG 70/30 (HUMAN) [Humulin 70/30 Vial] 40 unit SQ BIDAC [id number] [Rx] 3 Allergy/AdvReac Type Severity Reaction Status Date / Time insulin glargine Allergy Blister Verified 03/01/18 13:19 [From Lantus] diphenhydramine AdvReac Intermediate See Verified 03/01/18 13:19 [From Benadryl] Comments All Systems PM: A 10-system review of systems was performed and is negative for pertinent findings except as documented above in the HPI. Review of systems: All the systems are reviewed everything is benign except the systems and symptoms I mentioned in the history of present illness - Constitutional Vitals: Temp Pulse Resp BP Pulse Ox 97.6 F 81 16 119/75 97 03/01/18 20:48 03/01/18 20:48 03/01/18 20:48 03/01/18 20:48 03/01/18 20:48 General appearance: Present: cooperative, A&O X 3, no acute distress, answers questions appropriately - Head Head exam: Present: atraumatic, normal inspection - Neck Neck exam general surgery: Present: supple - Respiratory Respiratory exam: Present: decreased breath sounds. Absent: rales, respiratory distress, rhonchi, wheezes - Cardiovascular Cardiovascular exam: Present: RRR, +S1, +S2. Absent: tachycardia - GI/Abdominal GI/Abdominal exam: Present: normal bowel sounds, soft. Absent: rebound, rigid, tenderness - Extremities Exam Extremities exam: Absent: calf tenderness, pedal edema, tenderness - Back Exam Back exam: Absent: CVA tenderness (L), CVA tenderness (R) - Neurological Exam Neurological exam: Present: alert, oriented X3 - Psychiatric Psychiatric exam: Present: normal affect, normal mood - Skin Skin exam: Absent: rash Internal Med - H&P Results - Labs CBC & Chem 7: 03/01/18 13:55 03/01/18 13:55 - Assessment and plan (1) Hyperglycemia Current Visit: Yes Status: Acute Assessment and plan: Place the pt into Med Surg for observation Not in DKA reviewed his labs.. Anion gap -14 will check stat BMP now no need of insulin gtt started him on ISS at high will check HbA1C in AM Aggressive IV hydration continue symptomatic and supportive care (2) Dehydration Current Visit: Yes Status: Acute Assessment and plan: started him on IV hydration (3) Poorly controlled diabetes mellitus Current Visit: Yes Status: Acute Assessment and plan: counseled to be compliance with meds check HbA1C in AM (4) Substance abuse Current Visit: No Status: Acute Assessment and plan: Check UDS (5) IVDU (intravenous drug user) Current Visit: No Status: Chronic (6) Noncompliance with medications Current Visit: No Status: Chronic (7) Seizure Current Visit: No Status: Chronic Assessment and plan: resumed home meds (8) Tobacco abuse Current Visit: No Status: Chronic Assessment and plan: counseled to quit on nicotine patch - Time Spent With Patient Total time spent is greater than 50% in coordination of care (as documented) at patient's floor/unit and/or counseling patient:
[2018-03-01 23:18] LABS: BUN/Creatinine Ratio 16 (6-26); Blood Urea Nitrogen 11 mg/dL (6-20); Calcium 8.5 mg/dL (8.6-10.3); Carbon Dioxide 28 mEq/L (23-29); Chloride 104 mEq/L (98-107); Glucose 223 mg/dL (70-105); Magnesium 1.7 mg/dL (1.6-2.6); Osmolality,Calculated 288 (280-300); Potassium 4.2 mEq/L (3.5-5.1); Sodium 136 mEq/L (136-145); eGFR For African Americans > 60 (> 60); eGFR For Non-African Americans > 60 (> 60)
[2018-03-02] MEDS: 0.9 % Sodium Chloride 1,000 ML IVC SCH (05:51)
[2018-03-02 06:42] LABS: Basophils % 0.8 %; Eosinophils # 0.2 K/mcL (0.0-0.6); Eosinophils % 3.1 %; Hematocrit 35.4 % (37.5-50.1); Hemoglobin 11.5 g/dL (12.9-16.9); Immature Granulocytes % 0.6 % (0-4); Lymphocytes # 1.5 K/mcL (0.6-4.6); Mean Corpuscular HGB Conc 32.5 g/dL (31.6-35.5); Mean Corpuscular Hemoglobin 28.8 pg (28.0-33.3); Mean Corpuscular Volume 88.7 fL (83.0-100.0); Mean Platelet Volume 9.4 fL (9.4-12.4); Monocytes # 0.6 K/mcL (0.0-1.3); Monocytes % 11.3 %; Neutrophils # 2.8 K/mcL (1.6-8.9); Platelet Count 232 K/mcL (140-400); Red Blood Count 3.99 M/mcL (4.19-5.50); Red Cell Distribution Width 13.7 % (11.5-14.5); Segmented Neutrophils % 54.2 %
[2018-03-02 06:57] LABS: BUN/Creatinine Ratio 22 (6-26); Blood Urea Nitrogen 12 mg/dL (6-20); Calcium 8.2 mg/dL (8.6-10.3); Carbon Dioxide 24 mEq/L (23-29); Chloride 108 mEq/L (98-107); Cholesterol 127 mg/dL (< 200); Glucose 283 mg/dL (70-105); HDL Cholesterol 43 mg/dL (40-59); LDL Cholesterol,Calculated 68 mg/dL (0-99); Magnesium 1.7 mg/dL (1.6-2.6); Osmolality,Calculated 286 (280-300); Phosphorous 3.5 mg/dL (2.7-4.5); Potassium 4.3 mEq/L (3.5-5.1); Sodium 133 mEq/L (136-145); Triglycerides 82 mg/dL (< 150); eGFR For African Americans > 60 (> 60); eGFR For Non-African Americans > 60 (> 60)
[2018-03-02] MEDS: Venlafaxine XR (24 HR) 75 MG CAP.ER.24H PO SCH (08:45)
[2018-03-02] MEDS: Nicotine 21 MG PATCH.TD24 TD SCH (08:46)
[2018-03-02] MEDS: Gabapentin 400 MG CAPSULE PO SCH ×3 (08:46→21:12)
[2018-03-02] MEDS: Insulin LISPRO 300 UNITS/3 ML VIAL SQ SCH ×4 (08:47→21:11)
[2018-03-02 09:43] LABS: Estimated Average Glucose 275 mg/dl; Hemoglobin A1C 11.2 %
[2018-03-02 10:35] LABS: Amphetamine Screen,Urine Positive ng/mL (Cutoff=1000); Barbiturate Screen,Urine Negative ng/mL (Cutoff=200); Benzodiazepines Screen,Urine Negative ng/mL (Cutoff=200); Cannabinoid Screen,Urine Positive ng/mL (Cutoff = 50); Cocaine Screen,Urine Negative ng/mL (Cutoff= 300); Opiate Screen,Urine Positive ng/mL (Cutoff=300); Phencyclidine Screen,Urine Negative ng/mL (Cutoff=25)
[2018-03-02] MEDS: Insulin NPH/REG 70/30 100 UNIT/ML (x5UNIT) SQ SCH ×2 (10:56→16:39)
[2018-03-02] MEDS: *HR* HYDROcodone/Acet 5/325 mg TABLET PO PRN (11:39)
--- NOTE | 2018-03-02 16:03 | Internal Med Progress Note ---
Date of Encounter: 03/02/18 Time of Encounter: 16:00 - Assessment and plan (1) Dehydration Current Visit: Yes Status: Acute Assessment and plan: - improved with IVF, dc IVF, continue ADA diet. (2) Noncompliance with medications Current Visit: No Status: Chronic Assessment and plan: - education re-enforced. (3) Hyperglycemia Current Visit: Yes Status: Acute Assessment and plan: - non-compliant with treatment, resume home dose of insulin, BS improved. - monitor, if BG well controlled , will dc in am. (4) Tobacco abuse Current Visit: No Status: Chronic (5) Seizure Current Visit: No Status: Chronic Assessment and plan: - continue Phenytoin. (6) IVDU (intravenous drug user) Current Visit: No Status: Chronic Assessment and plan: - discuss about the resource of outpatient rehab, pt states he will try subaxone clinic after dc. (7) Substance abuse Current Visit: No Status: Acute (8) Poorly controlled diabetes mellitus Current Visit: Yes Status: Acute - Time Spent With Patient Total time spent is greater than 50% in coordination of care (as documented) at patient's floor/unit and/or counseling patient: Greater than 35 minutes - Subjective Interval history: Patient resting in the bed, he has no complaints. - Constitutional Vitals: Temp Pulse Resp BP Pulse Ox 98.1 F 79 18 121/78 95 03/02/18 15:08 03/02/18 15:08 03/02/18 15:08 03/02/18 15:08 03/02/18 15:08 General appearance: Present: cooperative, A&O X 3, no acute distress, answers questions appropriately Exam: PHYSICAL EXAMINATION: GENERAL APPEARANCE: The patient is alert, oriented and in no acute distress. HEENT: Head is normocephalic. The sinuses are nontender. Pupils are equal and reactive. The nares are patent. Oropharynx clear without lesions. NECK: Supple without lymphadenopathy. HEART: Regular rate and rhythm. LUNGS: No crackles or wheezes are heard. ABDOMEN: Soft, nontender, nondistended with good bowel sounds heard. Inguinal area is normal. EXTREMITIES: Without cyanosis, clubbing or edema. NEUROLOGICAL: Gross nonfocal. SKIN: Warm and dry without any rash. Internal Medicine: Result - Labs CBC & Chem 7: 03/02/18 06:04 03/02/18 06:04 Labs: Short CBC 03/02/18 Range/Units 06:04 WBC 5.1 D (4.3-11.1) K/mcL Hgb 11.5 L (12.9-16.9) g/dL Hct 35.4 L (37.5-50.1) % Plt Count 232 (140-400) K/mcL Neutrophils # 2.8 (1.6-8.9) K/mcL BMP 03/01/18 03/02/18 22:34 06:04 Sodium 136 133 L Potassium 4.2 4.3 Chloride 104 108 H Carbon Dioxide 28 24 BUN 11 12 Creatinine 0.70 0.55 L Glucose 223 H 283 H Calcium 8.5 L 8.2 L Consult Discharge Plan - Plan Referrals: NONE,PCP [Primary Care Provider] -
[2018-03-03] MEDS: Insulin LISPRO 300 UNITS/3 ML VIAL SQ SCH ×3 (07:42→17:27)
[2018-03-03] MEDS: Gabapentin 400 MG CAPSULE PO SCH ×2 (07:43→17:27)
[2018-03-03] MEDS: Insulin NPH/REG 70/30 100 UNIT/ML (x5UNIT) SQ SCH ×2 (07:43→17:27)
[2018-03-03] MEDS: Venlafaxine XR (24 HR) 75 MG CAP.ER.24H PO SCH (07:43)
[2018-03-03] MEDS: Nicotine 21 MG PATCH.TD24 TD SCH (07:47)
[2018-03-03] MEDS: *HR* HYDROcodone/Acet 5/325 mg TABLET PO PRN (09:30)
[2018-03-03 11:31] VITALS: BP 119/68
--- NOTE | 2018-03-03 14:06 | Discharge Summary ---
- NOTES TO OUTPATIENT PROVIDER Notes to Outpatient Provider: f/u with PCP within a week. Date of Encounter: 03/03/18 Time of Encounter: 14:00 - Discharge Diagnosis (1) Dehydration Priority: Primary Status: Acute (2) Noncompliance with medications Priority: Secondary Status: Chronic (3) Hyperglycemia Priority: Primary Status: Acute (4) Tobacco abuse Priority: Secondary Status: Chronic (5) Seizure Priority: Secondary Status: Chronic (6) IVDU (intravenous drug user) Priority: Secondary Status: Chronic (7) Substance abuse Priority: Secondary Status: Chronic (8) Poorly controlled diabetes mellitus Priority: Secondary Status: Acute Hospital course: Mr. Lemus is a 32 year old male with type 1 diabetes mellitus presented with hyperglycemia. He has been missed several doses of NPH prior to admission. Lab test ruled out DKA. His home insulin regimen was resumed. His blood glucose level was improved and under control. His vital signs were stable, his blood glucose level on the discharge day was between 130 to 150. He is discharged home today with continuation of home insulin dose. He was instructed to check blood glucose level before each meal and before sleep. He was instructed to come back or call the primary care physician if blood glucose level is persistently high or low. Time spent discussing smoking cessation with patient: more than 10 minutes - Time Spent with Patient Total time spent providing and/or coordinating discharge services: Less than 30 minutes - Discharge Medications Prescriptions: Blood Sugar Diagnostic [Test Strips] 1 each [facility] #100 strip Insulin NPH/REG 70/30 (HUMAN) [Humulin 70/30 Vial] 40 unit SQ BIDAC #1 bottle Insulin Regular Human [Humulin R] 2 - 10 unit SQ BID #1 bottle Nicotine Patch [Nicoderm] 21 mg TD DAILY #30 patch.td24 Home Medications: Naproxen 500 mg PO BID PRN #60 tablet 12/05/17 [Rx] Venlafaxine HCl [Venlafaxine HCl ER] 75 mg PO DAILY 01/23/18 [History] Gabapentin [Neurontin] 800 mg PO TID #90 tablet 02/04/18 [Rx] Lisinopril [Zestril] 5 mg PO DAILY 30 Days #30 tablet 02/04/18 [Rx] Phenytoin ER [Dilantin ER] 100 mg PO TID #90 capsule 02/04/18 [Rx] hydrOXYzine pamoate [HydrOXYzine Pamoate] 25 mg PO TID PRN #90 capsule 02/04/18 [Rx] Quetiapine Fumarate [Seroquel] 300 mg PO HS 02/08/18 [History] Acetaminophen [Tylenol] 650 mg PO Q6HR PRN tablet 02/12/18 [Rx] Blood Sugar Diagnostic [Test Strips] 1 each [facility] #100 strip 03/03/18 [Rx] Insulin NPH/REG 70/30 (HUMAN) [Humulin 70/30 Vial] 40 unit SQ BIDAC #1 bottle [Rx] Insulin Regular Human [Humulin R] 2 - 10 unit SQ BID #1 bottle 03/03/18 [Rx] Nicotine Patch [Nicoderm] 21 mg TD DAILY #30 patch.td24 03/03/18 [Rx] Allergies/Adverse Reactions: 3 Allergy/AdvReac Type Severity Reaction Status Date / Time insulin glargine Allergy Blister Verified 03/01/18 13:19 [From Lantus] diphenhydramine AdvReac Intermediate See Verified 03/01/18 13:19 [From Benadryl] Comments Date of admission: 03/01/18 18:52 Primary care physician: PCP NONE Consults: 03/01/18 21:00 Consult to Nutrition [CONS] Routine Comment: Consulting Provider: NUTRITION Reason for Dietary Consult: MST Score Anticipated date of discharge: 03/03/18 - Constitutional Vitals: Temp Pulse Resp BP Pulse Ox 98.3 F 78 16 119/68 99 03/03/18 10:00 03/03/18 10:00 03/03/18 10:00 03/03/18 10:00 03/03/18 10:00 General appearance: Present: cooperative, A&O X 3, no acute distress, answers questions appropriately Exam: PHYSICAL EXAMINATION: GENERAL APPEARANCE: The patient is alert, oriented and in no acute distress. HEENT: Head is normocephalic. The sinuses are nontender. Pupils are equal and reactive. The nares are patent. Oropharynx clear without lesions. NECK: Supple without lymphadenopathy. HEART: Regular rate and rhythm. LUNGS: No crackles or wheezes are heard. ABDOMEN: Soft, nontender, nondistended with good bowel sounds heard. Inguinal area is normal. EXTREMITIES: Without cyanosis, clubbing or edema. NEUROLOGICAL: Gross nonfocal. SKIN: Warm and dry without any rash. - Patient Status Disposition: Home, Self-Care Condition: Fair Functional capacity at discharge: independent ambulation Overall status at discharge: patient is back to baseline - Discharge Instructions Follow Up With: NONE,PCP [Primary Care Provider] - (within a week.) - Diet and Activity Activity: increase activity as tolerated Diet: diabetic diet
--- NOTE | 2018-03-04 13:38 | Electrocardiograph Report ---
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
== END 2018-03-03 18:56 | disposition home or self-care (01) ==
LOC: EMEROO 12:47 → 3NENU 12:47 → SUATTDRO 18:52 → 3NENU 20:31
PROVIDERS: ADMIT Family Medicine; ATTEND Internal Medicine

== ENCOUNTER 2018-03-10 21:07 | Observation (INO) ==
[2018-03-10] MEDS ORDERED: *HR* Dextrose 50 % in Water (Syg) 50 ML SYRINGE IVP PRN (22:06)
[2018-03-10] MEDS ORDERED: Insulin Human Regular 100 UNIT in 0.9 % Sodium Chloride 100 ML IVC SCH (22:15)
[2018-03-10 22:51] LABS: VBG HCO3 22 mEq/L (21-27); VBG PCO2 42 mmHg (41-51); VBG PH 7.33 pH Units (7.32-7.42); VBG PO2 30 mmHg (25-50)
[2018-03-10] MEDS: 0.9 % Sodium Chloride 1,000 ML IVC SCH (22:51)
[2018-03-10 22:56] LABS: Basophils # 0.1 K/mcL (0.0-0.2); Basophils % 0.4 %; Eosinophils % 0.2 %; Hemoglobin 14.3 g/dL (12.9-16.9); Immature Granulocytes % 0.5 % (0-4); Lymphocytes # 1.2 K/mcL (0.6-4.6); Lymphocytes % 8.4 %; Mean Corpuscular Hemoglobin 29.2 pg (28.0-33.3); Mean Corpuscular Volume 85.7 fL (83.0-100.0); Monocytes # 0.8 K/mcL (0.0-1.3); Monocytes % 5.5 %; Neutrophils # 12.1 K/mcL (1.6-8.9); Platelet Count 331 K/mcL (140-400); Red Cell Distribution Width 13.2 % (11.5-14.5)
[2018-03-10] MEDS ORDERED: Ondansetron 4 MG/2 ML VIAL IVP ONE (23:00)
--- NOTE | 2018-03-10 23:00 | Emergency Department Note ---
Disposition Clinical Impression: Hyperglycemia, Elevated blood ketone body level Disposition: Admitted As Inpatient Condition: Fair Referrals: NONE,PCP [Primary Care Provider] - Forms: ED Satisfaction Letter, Work/School Release Time of Disposition: 00:25 General Adult HPI - General Chief complaint: ED General Medical Stated complaint: Hyperglycemia Time Seen by Provider: 03/10/18 22:06 Source: patient, family, EMS Limitations: no limitations Nursing Notes Reviewed: Yes Vital Signs Reviewed: Yes - History of Present Illness HPI Narrative: Mr. Maki, 32-year-old type I diabetic, presents from home for evaluation of hyperglycemia. For the past 5 days, patient has been incarcerated andthat he was not given all of his regular insulin shots. He was released from shelter this morning and has not had any insulin today. His home glucose meter read "high." Insulin regimen: Novolin 70/30: 40 units every morning and at bedtime Novolin R : medium sliding scale insulin ROS: Positive: He feels weak, nauseous, abdominal pain, lower back pain, slight blurry vision. Negative: Fever, chills, vomiting, chest pains, palpitations, numbness or tingling, changes in bowel or bladder habits, cough, no sores or open skin wounds Pain Scale: 5 - Related Data Home Medications Medication Instructions Recorded Confirmed Venlafaxine HCl [Venlafaxine HCl 75 mg PO DAILY 01/23/18 03/02/18 ER] Quetiapine Fumarate [Seroquel] 300 mg PO HS 02/08/18 03/02/18 Previous Rx's Medication Instructions Recorded Naproxen 500 mg PO BID PRN #60 tablet 12/05/17 Gabapentin [Neurontin] 800 mg PO TID #90 tablet 02/04/18 Lisinopril [Zestril] 5 mg PO DAILY 30 Days #30 tablet 02/04/18 Phenytoin ER [Dilantin ER] 100 mg PO TID #90 capsule 02/04/18 hydrOXYzine pamoate [HydrOXYzine 25 mg PO TID PRN #90 capsule 02/04/18 Pamoate] Acetaminophen [Tylenol] 650 mg PO Q6HR PRN tablet 02/12/18 Blood Sugar Diagnostic [Test 1 each [facility] #100 strip 03/03/18 Strips] Insulin NPH/REG 70/30 (HUMAN) 40 unit SQ BIDAC #1 bottle 03/03/18 [Humulin 70/30 Vial] Insulin Regular Human [Humulin R] 2 - 10 unit SQ BID #1 bottle 03/03/18 Nicotine Patch [Nicoderm] 21 mg TD DAILY #30 patch.td24 03/03/18 Allergies Allergy/AdvReac Type Severity Reaction Status Date / Time insulin glargine Allergy Blister Verified 03/01/18 13:19 [From Lantus] diphenhydramine AdvReac Intermediate See Verified 03/01/18 13:19 [From Benadryl] Comments All systems ED: reviewed and negative except as stated. Review of Systems: As Per HPI Past Medical History - Past Medical History Medical history: Reports: diabetes, hepatitis, seizures Surgical history: Reports: no surgical history Psychiatric history: Reports: anxiety, bipolar, depression, prior suicide attempt, previous psychiatric hospitalization - Social History Smoking Status: Current every day smoker Smokeless Tobacco Status: No Alcohol use: Reports: rarely Drug use: Reports: opiates, marijuana, methamphetamine, IV Drug Use Physical Exam Vital Signs Reviewed General: Patient is alert, oriented, and in mild distress-abdominal pain, nausea. Head: atraumatic, normocephalic Eye: normal appearance, PERRL, EOMI, no scleral icterus, no conjunctival injection ENT: mucous membranes dry, normal external ear exam Neck: normal inspection, trachea midline, full ROM Chest: normal inspection, symmetric chest rise Respiratory: Good respiratory effort. Bilateral breath sounds are clear without wheezing, crackles, or rhonchi. Cardiovascular: Regular rate and rhythm. No clicks, rubs, gallops, or murmors. Normal heart sounds. Abdomen: Scaphoid. Bowel sounds present normoactive x-4 quadrants. Abdomen is soft, nondistended, and nontender. No guarding or rebound. No organomegaly noted. Musculoskeletal: Spontaneously moving all extremities. Skin: warm, dry, intact. Neuro: Alert and oriented x4. Sensation light touch intact. Psych: Patient's affect is appropriate for situation. - General Limitations: no limitations General appearance: alert Course Course Narrative: EKG dated 03/10/18 at 22:26 interpreted as sinus tachycardia with a rate of 100. Short [place] 1:15 milliseconds. Otherwise normal intervals. Normal axis. Nonspecific ST-T changes. No previous EKG for comparison. Patient is not acidotic with pH of 7.33. He does have serum ketones. Initial blood glucose on serum chemistry is in the 700s. Will manage per DKA protocol. Repeat blood glucoses in the 500s. Patient is beginning to subjectively feel better. He is hyponatremic to 120; likely pseudohyponatremia. Corrected serum glucose is 136. I discussed the above the patient. He is agreeable to admission for continued evaluation and management. I discussed the patient with the admitting hospitalist, Dr. Collado, who agrees to accept the patient for continued management. Vital Signs Temperature 97.9 F 03/10/18 21:27 Pulse Rate 119 03/10/18 21:27 Respiratory Rate 24 03/10/18 21:27 Blood Pressure 131/79 03/10/18 21:27 O2 Sat by Pulse Oximetry 96 03/10/18 21:27 Temperature 97.9 F 03/10/18 21:27 Pulse Rate 119 03/10/18 21:27 Respiratory Rate 24 03/10/18 21:27 Blood Pressure 131/79 03/10/18 21:27 O2 Sat by Pulse Oximetry 96 03/10/18 21:27 Oxygen Delivery Oxygen Delivery Room Air Medical Decision Making - Lab Data Result diagrams: 03/10/18 22:38 03/10/18 22:38 Lab Results 03/10/18 03/10/18 03/10/18 Range/Units 21:13 21:14 22:38 WBC 14.2 H (4.3-11.1) K/mcL RBC 4.90 (4.19-5.50) M/mcL Hgb 14.3 (12.9-16.9) g/dL Hct 42.0 (37.5-50.1) % MCV 85.7 (83.0-100.0) fL MCH 29.2 (28.0-33.3) pg MCHC 34.0 (31.6-35.5) g/dL RDW 13.2 (11.5-14.5) % Plt Count 331 (140-400) K/mcL MPV 9.0 L (9.4-12.4) fL Immature Gran % 0.5 (0-4) % Seg Neutrophils % 85.0 % Lymphocytes % 8.4 % Monocytes % 5.5 % Eosinophils % 0.2 % Basophils % 0.4 % Neutrophils # 12.1 H (1.6-8.9) K/mcL Lymphocytes # 1.2 (0.6-4.6) K/mcL Monocytes # 0.8 (0.0-1.3) K/mcL Eosinophils # 0.0 (0.0-0.6) K/mcL Basophils # 0.1 (0.0-0.2) K/mcL VBG pH (7.32-7.42) pH Units VBG pCO2 (41-51) mmHg VBG pO2 (25-50) mmHg VBG HCO3 (21-27) mEq/L Sodium (136-145) mEq/L Potassium (3.5-5.1) mEq/L Chloride (98-107) mEq/L Carbon Dioxide (23-29) mEq/L BUN (6-20) mg/dL Creatinine (0.70-1.30) mg/dL Est GFR ( Amer) (> 60) Est GFR (Non-Af Amer) (> 60) BUN/Creatinine Ratio (6-26) Glucose (70-105) mg/dL POC Glucose > 600 H* > 600 H* (70-99) mg/dL Calculated Osmolality (280-300) Lactic Acid (0.5-2.2) mmol/L Calcium (8.6-10.3) mg/dL Phosphorus (2.7-4.5) mg/dL Magnesium (1.6-2.6) mg/dL Total Bilirubin (0.3-1.0) mg/dL AST (13-39) Units/L ALT (7-52) Units/L Alkaline Phosphatase (34-104) Units/L Troponin I (< 0.04) ng/mL Serum Total Protein (6.4-8.9) g/dL Albumin (3.5-5.7) g/dL Globulin (2.4-3.5) g/dL Albumin/Globulin Ratio (1.1-2.2) Beta-Hydroxybutyric Acd (0.02-0.27) mmol/L 03/10/18 03/10/18 03/10/18 Range/Units 22:38 22:38 22:38 WBC (4.3-11.1) K/mcL RBC (4.19-5.50) M/mcL Hgb (12.9-16.9) g/dL Hct (37.5-50.1) % MCV (83.0-100.0) fL MCH (28.0-33.3) pg MCHC (31.6-35.5) g/dL RDW (11.5-14.5) % Plt Count (140-400) K/mcL MPV (9.4-12.4) fL Immature Gran % (0-4) % Seg Neutrophils % % Lymphocytes % % Monocytes % % Eosinophils % % Basophils % % Neutrophils # (1.6-8.9) K/mcL Lymphocytes # (0.6-4.6) K/mcL Monocytes # (0.0-1.3) K/mcL Eosinophils # (0.0-0.6) K/mcL Basophils # (0.0-0.2) K/mcL VBG pH (7.32-7.42) pH Units VBG pCO2 (41-51) mmHg VBG pO2 (25-50) mmHg VBG HCO3 (21-27) mEq/L Sodium 120 L* (136-145) mEq/L Potassium 5.1 (3.5-5.1) mEq/L Chloride 85 L (98-107) mEq/L Carbon Dioxide 19 L (23-29) mEq/L BUN 21 H (6-20) mg/dL Creatinine 1.18 (0.70-1.30) mg/dL Est GFR ( Amer) > 60 (> 60) Est GFR (Non-Af Amer) > 60 (> 60) BUN/Creatinine Ratio 18 (6-26) Glucose 778 H* (70-105) mg/dL POC Glucose (70-99) mg/dL Calculated Osmolality 291 (280-300) Lactic Acid 0.9 (0.5-2.2) mmol/L Calcium 9.5 (8.6-10.3) mg/dL Phosphorus 3.6 (2.7-4.5) mg/dL Magnesium 1.8 (1.6-2.6) mg/dL Total Bilirubin 0.7 (0.3-1.0) mg/dL AST 43 H (13-39) Units/L ALT 68 H (7-52) Units/L Alkaline Phosphatase 155 H (34-104) Units/L Troponin I < 0.03 (< 0.04) ng/mL Serum Total Protein 7.5 (6.4-8.9) g/dL Albumin 4.3 (3.5-5.7) g/dL Globulin 3.2 (2.4-3.5) g/dL Albumin/Globulin Ratio 1.3 (1.1-2.2) Beta-Hydroxybutyric Acd > 2.00 H (0.02-0.27) mmol/L 03/10/18 Range/Units 22:48 WBC (4.3-11.1) K/mcL RBC (4.19-5.50) M/mcL Hgb (12.9-16.9) g/dL Hct (37.5-50.1) % MCV (83.0-100.0) fL MCH (28.0-33.3) pg MCHC (31.6-35.5) g/dL RDW (11.5-14.5) % Plt Count (140-400) K/mcL MPV (9.4-12.4) fL Immature Gran % (0-4) % Seg Neutrophils % % Lymphocytes % % Monocytes % % Eosinophils % % Basophils % % Neutrophils # (1.6-8.9) K/mcL Lymphocytes # (0.6-4.6) K/mcL Monocytes # (0.0-1.3) K/mcL Eosinophils # (0.0-0.6) K/mcL Basophils # (0.0-0.2) K/mcL VBG pH 7.33 (7.32-7.42) pH Units VBG pCO2 42 (41-51) mmHg VBG pO2 30 (25-50) mmHg VBG HCO3 22 (21-27) mEq/L Sodium (136-145) mEq/L Potassium (3.5-5.1) mEq/L Chloride (98-107) mEq/L Carbon Dioxide (23-29) mEq/L BUN (6-20) mg/dL Creatinine (0.70-1.30) mg/dL Est GFR ( Amer) (> 60) Est GFR (Non-Af Amer) (> 60) BUN/Creatinine Ratio (6-26) Glucose (70-105) mg/dL POC Glucose (70-99) mg/dL Calculated Osmolality (280-300) Lactic Acid (0.5-2.2) mmol/L Calcium (8.6-10.3) mg/dL Phosphorus (2.7-4.5) mg/dL Magnesium (1.6-2.6) mg/dL Total Bilirubin (0.3-1.0) mg/dL AST (13-39) Units/L ALT (7-52) Units/L Alkaline Phosphatase (34-104) Units/L Troponin I (< 0.04) ng/mL Serum Total Protein (6.4-8.9) g/dL Albumin (3.5-5.7) g/dL Globulin (2.4-3.5) g/dL Albumin/Globulin Ratio (1.1-2.2) Beta-Hydroxybutyric Acd (0.02-0.27) mmol/L
--- NOTE | 2018-03-10 23:04 | Emergency Department Note ---
START Narrative - START START: I examined this patient and my medical decision-making was reviewed with the Resident Physician. I agree with the documented findings, disposition and treatment plan as described except to the extent set forth below. 32-year-old male presented to the emergency room for hyperglycemia. Patient is a known diabetic. He is on insulin. He had been incarcerated for the past few days. He states he was not getting the appropriate dose of his insulin. Was discharged from the half-way today. He presents for glucose greater than 600. He does have elevated serum ketones. Patient states he does not feel well. Patient appears to be going into diabetic ketoacidosis. He does have a history of this in the past. We will give him some IV fluids and start him on insulin drip. Patient will likely need to be admitted overnight for hyperglycemia control. No critical care.
[2018-03-10 23:15] LABS: Alanine Aminotransferase 68 Units/L (7-52); Albumin 4.3 g/dL (3.5-5.7); Albumin/Globulin Ratio 1.3 (1.1-2.2); Alkaline Phosphatase 155 Units/L (34-104); Aspartate Amino Transferase 43 Units/L (13-39); BUN/Creatinine Ratio 18 (6-26); Bilirubin,Total 0.7 mg/dL (0.3-1.0); Blood Urea Nitrogen 21 mg/dL (6-20); Calcium 9.5 mg/dL (8.6-10.3); Carbon Dioxide 19 mEq/L (23-29); Chloride 85 mEq/L (98-107); Globulin 3.2 g/dL (2.4-3.5); Glucose 778 mg/dL (70-105); Magnesium 1.8 mg/dL (1.6-2.6); Osmolality,Calculated 291 (280-300); Phosphorous 3.6 mg/dL (2.7-4.5); Potassium 5.1 mEq/L (3.5-5.1); Sodium 120 mEq/L (136-145); Total Protein 7.5 g/dL (6.4-8.9); Troponin I < 0.03 ng/mL (< 0.04); eGFR For African Americans > 60 (> 60); eGFR For Non-African Americans > 60 (> 60)
[2018-03-11] MEDS: 0.9 % Sodium Chloride 1,000 ML IVC SCH ×3 (00:02→08:38)
[2018-03-11] MEDS ORDERED: *HR* Dextrose 50 % in Water (Syg) 50 ML SYRINGE IVP PRN (04:22)
[2018-03-11] MEDS ORDERED: Dextrose Gel 15 GM/37.5 ML TUBE PO PRN ×2 (04:22)
[2018-03-11] MEDS ORDERED: D5% in Water 1,000 ML IVC PRN (04:22)
[2018-03-11] MEDS ORDERED: Naloxone 0.4 MG/ML INJ IVP PRN (05:05)
[2018-03-11] MEDS: Insulin LISPRO 300 UNITS/3 ML VIAL SQ SCH ×3 (05:15→18:07)
--- NOTE | 2018-03-11 05:16 | Internal Med History&Physical ---
Date of Encounter: 03/11/18 Time of Encounter: 05:09 Internal Medicine - H&P: HPI Chief complaint: high glucose Admitted From: Emergency Dept Plans for Post Hospital Care: Home History of present illness: Mr. Lemus is a 32 year old male presents the ER tonight with complaints of high glucose, nausea, abdominal cramping, and feeling weak. He was just [facility] and was incarcerated for about 5 days. He had minimal insulin during his time in long term. He felt as though his glucose was climbing and once he had it checked, it was over 700. He therefore called the squad and was brought to the ER. In the ER, he received insulin drip and IV fluids and was admitted to hospitalist service. Upon my assessment of the patient, he feels better, but states he is thirsty and hungry. He denies any fevers, cough, congestion, vomiting, or diarrhea. He has had some nausea, which has resolved. His abdominal cramping is resolved as well. He states he normally takes his insulin regularly and watches glucose control. However, while in long term this past week, he did not receive his insulin except on sporadic occasions. Past Med Surg Social Fam HX - Past Medical History Attestation: Yes The following information was validated with the patient. Source: patient, old records reviewed Medical history: diabetes, hepatitis, seizures Psychiatric history: anxiety, bipolar, depression, prior suicide attempt, previous psychiatric hospitalization - Past Surgical History Surgical History: orthopedic, other - Social History Smoking Status: Current every day smoker Smokeless Tobacco Status: No Alcohol use: rarely Drug use: opiates, marijuana, methamphetamine, IV Drug Use Activity Level: Independent ambulation - Family History Father Family Member Ethnicity: Non- Living Status: Hx Family Cardiac Disorders: Yes (LA) Hx Family Endocrine Disorder: Yes (DM) Mother Family Member Ethnicity: Non- Living Status: Still Living Sister Family Member Ethnicity: Non- Living Status: Still Living Internal Medicine - H&P: Meds Naproxen 500 mg PO BID PRN #60 tablet 12/05/17 [Rx] Venlafaxine HCl [Venlafaxine HCl ER] 75 mg PO DAILY 01/23/18 [History] Gabapentin [Neurontin] 800 mg PO TID #90 tablet 02/04/18 [Rx] Lisinopril [Zestril] 5 mg PO DAILY 30 Days #30 tablet 02/04/18 [Rx] Phenytoin ER [Dilantin ER] 100 mg PO TID #90 capsule 02/04/18 [Rx] hydrOXYzine pamoate [HydrOXYzine Pamoate] 25 mg PO TID PRN #90 capsule 02/04/18 [Rx] Quetiapine Fumarate [Seroquel] 300 mg PO HS 02/08/18 [History] Acetaminophen [Tylenol] 650 mg PO Q6HR PRN tablet 02/12/18 [Rx] Blood Sugar Diagnostic [Test Strips] 1 each ACHS #100 strip 03/03/18 [Rx] Insulin NPH/REG 70/30 (HUMAN) [Humulin 70/30 Vial] 40 unit SQ BIDAC #1 bottle [Rx] Insulin Regular Human [Humulin R] 2 - 10 unit SQ BID #1 bottle 03/03/18 [Rx] Nicotine Patch [Nicoderm] 21 mg TD DAILY #30 patch.[id number] 03/03/18 [Rx] 3 Allergy/AdvReac Type Severity Reaction Status Date / Time insulin glargine Allergy Blister Verified 03/01/18 13:19 [From Lantus] diphenhydramine AdvReac Intermediate See Verified 03/01/18 13:19 [From Benadryl] Comments - Constitutional Constitutional: no chills, no fever(s) - EENT Eyes: change in vision Ears: no ear pain, no tinnitus Nose, mouth and throat: no nasal congestion, no nasal discharge, no sinus pressure, no sore throat - Cardiovascular Cardiovascular ROS IM: no chest pain, no dyspnea, no dyspnea on exertion - Respiratory Respiratory: no cough, no hemoptysis, no chest congestion, no excessive phlegm production, no change in phlegm color - Gastrointestinal Gastrointestinal: cramping, nausea, no abdominal pain, no diarrhea, no hematemesis, no hematochezia, no melena, no vomiting - Genitourinary Genitourinary ROS male: no dysuria, no flank pain, no hematuria - Musculoskeletal Musculoskeletal ROS IM: no arthralgias, no muscle cramps - Integumentary Integumentary IM: no rash, no jaundice - Neurological Neurological ROS: no dizziness, no focal weakness, no frequent falls, no headache(s) - Psychiatric Psychiatric: no anxiety, no depression - Endocrine Endocrine IM: no polydipsia, no polyuria - Hematologic/Lymphatic Hematologic/Lymphatic: no easy bruising, no lymphadenopathy - Allergic/Immunologic Allergic/Immunologic: no wheezing, no GI upset with certain foods - Constitutional Vitals: Temp Pulse Resp BP Pulse Ox 97.9 F 79 16 112/72 98 03/11/18 04:38 03/11/18 04:38 03/11/18 04:38 03/11/18 04:38 03/11/18 04:38 General appearance: Present: cooperative, A&O X 3, pleasant, no acute distress, answers questions appropriately - Head Head exam: Present: atraumatic, normal inspection - Eye Eye exam: Present: EOMI, normal appearance, PERRL. Absent: scleral icterus Pupils: Present: normal accommodation - ENT ENT exam: Present: mucous membranes dry, normal exam, normal oropharynx - Neck Neck exam general surgery: Present: full ROM, supple. Absent: lymphadenopathy, tenderness, nuchal rigidity, thyromegaly - Respiratory Respiratory exam: Present: CTAB. Absent: chest wall tenderness, rales, respiratory distress, rhonchi, wheezes - Cardiovascular Cardiovascular exam: Present: RRR, +S1, +S2. Absent: diastolic murmur, systolic murmur - GI/Abdominal GI/Abdominal exam: Present: normal bowel sounds, soft. Absent: guarding, hepatomegaly, mass, rebound, splenomegaly, tenderness - Extremities Exam Extremities exam: Present: full ROM, normal capillary refill, warm, radial pulses palpable and symmetrical. Absent: calf tenderness, joint swelling, pedal edema, tenderness - Back Exam Back exam: Present: normal inspection. Absent: CVA tenderness (L), CVA tenderness (R) - Neurological Exam Neurological exam: Present: alert, CN II-XII intact, oriented X3, no focal deficits - Psychiatric Psychiatric exam: Present: normal affect, normal mood - Skin Skin exam: Present: dry, warm. Absent: rash Additional comments: multiple tattoos Internal Med - H&P Results - Labs CBC & Chem 7: 03/10/18 22:38 03/10/18 22:38 - Assessment and plan (1) Hyperglycemia Current Visit: Yes Status: Acute Assessment and plan: 1. Insulin drip weaned off, now on SSI. 2. Continue IVF and hourly glucose levels. 3. Recheck chemistries and resume SQ insulin when PO feeds begin later this morning. (2) Hyponatremia Current Visit: Yes Status: Acute Assessment and plan: 1. Likely due to hyperglycemia (pseudohyponatremia). 2. Recheck chemistries and follow closely. (3) DVT prophylaxis Current Visit: No Status: Acute Assessment and plan: 1. Heparin SQ.
[2018-03-11] MEDS: *HR* Heparin 5,000 UNIT/ML VIAL SQ SCH ×2 (05:17→17:56)
[2018-03-11 05:26] LABS: Alanine Aminotransferase 49 Units/L (7-52); Albumin 3.4 g/dL (3.5-5.7); Albumin/Globulin Ratio 1.4 (1.1-2.2); Alkaline Phosphatase 122 Units/L (34-104); Aspartate Amino Transferase 31 Units/L (13-39); BUN/Creatinine Ratio 19 (6-26); Bilirubin,Total 0.5 mg/dL (0.3-1.0); Blood Urea Nitrogen 13 mg/dL (6-20); Calcium 8.5 mg/dL (8.6-10.3); Carbon Dioxide 22 mEq/L (23-29); Chloride 97 mEq/L (98-107); Globulin 2.5 g/dL (2.4-3.5); Glucose 359 mg/dL (70-105); Magnesium 1.7 mg/dL (1.6-2.6); Osmolality,Calculated 285 (280-300); Potassium 3.8 mEq/L (3.5-5.1); Sodium 130 mEq/L (136-145); Total Protein 5.9 g/dL (6.4-8.9); eGFR For African Americans > 60 (> 60); eGFR For Non-African Americans > 60 (> 60)
[2018-03-11] MEDS: Insulin NPH/REG 70/30 100 UNIT/ML (x5UNIT) SQ SCH ×3 (08:37→17:00)
[2018-03-11] MEDS ORDERED: Acetaminophen 325 MG TABLET PO PRN (15:31)
--- NOTE | 2018-03-11 19:55 | Event Note ---
Date of Encounter: 03/11/18 Time of Encounter: 11:00 Patient was evaluated by nocturnalist earlier this morning and also by myself 1. DKA-resolved CM c/s for prescription assistance as patient has no insulin or financial means to buy and is homeless
[2018-03-11] MEDS: Gabapentin 400 MG CAPSULE PO SCH (20:52)
[2018-03-12] MEDS: Insulin LISPRO 300 UNITS/3 ML VIAL SQ SCH ×4 (00:26→17:43)
[2018-03-12 05:36] LABS: Basophils % 0.3 %; Eosinophils # 0.1 K/mcL (0.0-0.6); Eosinophils % 1.4 %; Hematocrit 34.6 % (37.5-50.1); Immature Granulocytes % 0.4 % (0-4); Lymphocytes # 1.8 K/mcL (0.6-4.6); Lymphocytes % 25.6 %; Mean Corpuscular HGB Conc 33.8 g/dL (31.6-35.5); Mean Corpuscular Hemoglobin 29.1 pg (28.0-33.3); Mean Corpuscular Volume 86.1 fL (83.0-100.0); Mean Platelet Volume 8.9 fL (9.4-12.4); Monocytes # 0.5 K/mcL (0.0-1.3); Monocytes % 7.1 %; Neutrophils # 4.7 K/mcL (1.6-8.9); Platelet Count 253 K/mcL (140-400); Red Blood Count 4.02 M/mcL (4.19-5.50); Red Cell Distribution Width 13.2 % (11.5-14.5); Segmented Neutrophils % 65.2 %
[2018-03-12 05:37] LABS: Hemoglobin 11.7 g/dL (12.9-16.9)
[2018-03-12] MEDS: *HR* Heparin 5,000 UNIT/ML VIAL SQ SCH ×2 (05:39→17:52)
[2018-03-12 05:56] LABS: Alanine Aminotransferase 42 Units/L (7-52); Albumin 2.9 g/dL (3.5-5.7); Albumin/Globulin Ratio 1.3 (1.1-2.2); Alkaline Phosphatase 96 Units/L (34-104); Aspartate Amino Transferase 45 Units/L (13-39); BUN/Creatinine Ratio 33 (6-26); Bilirubin,Total 0.2 mg/dL (0.3-1.0); Blood Urea Nitrogen 18 mg/dL (6-20); Calcium 8.3 mg/dL (8.6-10.3); Carbon Dioxide 29 mEq/L (23-29); Chloride 99 mEq/L (98-107); Globulin 2.2 g/dL (2.4-3.5); Glucose 232 mg/dL (70-105); Magnesium 1.6 mg/dL (1.6-2.6); Osmolality,Calculated 285 (280-300); Sodium 133 mEq/L (136-145); Total Protein 5.1 g/dL (6.4-8.9); eGFR For African Americans > 60 (> 60); eGFR For Non-African Americans > 60 (> 60)
[2018-03-12] MEDS: Gabapentin 400 MG CAPSULE PO SCH ×3 (08:18→21:23)
[2018-03-12] MEDS: Venlafaxine XR (24 HR) 75 MG CAP.ER.24H PO SCH (08:18)
[2018-03-12] MEDS: Insulin NPH/REG 70/30 100 UNIT/ML (x5UNIT) SQ SCH ×2 (08:55→17:01)
[2018-03-12] MEDS ORDERED: Ketorolac 15 MG/ML VIAL IVP ONE (14:41)
--- NOTE | 2018-03-12 15:30 | Internal Med Progress Note ---
Date of Encounter: 03/12/18 Time of Encounter: 11:00 - Assessment and plan (1) DKA (diabetic ketoacidoses) Current Visit: No Status: Resolved Assessment and plan: Resolved; will continue patient's Novolin units subcutaneous twice a day before meals Qualifiers: Diabetes mellitus type: type 1 Diabetes mellitus complication detail: without coma Qualified Code(s): E10.10 - Type 1 diabetes mellitus with ketoacidosis without coma (2) Poorly controlled diabetes mellitus Current Visit: No Status: Acute Assessment and plan: Hemoglobin A1c of 11.2 Case management consulted for prescription coverage assistance for compliance of medications for improvement of diabetes and prevention of DKA repeat admissions (3) Hyponatremia Current Visit: Yes Status: Acute Assessment and plan: Resolved; secondary to hyperglycemia (pseudohyponatremia). Continue to monitor (4) Mood disorder Current Visit: Yes Status: Acute Assessment and plan: Will continue Seroquel and venlafaxine (5) Hepatitis C Current Visit: No Status: Chronic Assessment and plan: History of hepatitis C; hepatic function panel unremarkable Qualifiers: Viral hepatitis chronicity: chronic Hepatic coma status: without hepatic coma Qualified Code(s): B18.2 - Chronic viral hepatitis C (6) History of seizures Current Visit: No Status: Chronic Assessment and plan: Continue Dilantin; will get Dilantin levels (7) IV drug abuse Current Visit: No Status: Chronic Assessment and plan: History of; cautious with opiate pain medications (8) DVT prophylaxis Current Visit: No Status: Acute Assessment and plan: Subcutaneous heparin - Time Spent With Patient Total time spent is greater than 50% in coordination of care (as documented) at patient's floor/unit and/or counseling patient: - Subjective Interval history: Patient with no complaints or issues overnight Awaiting consult for case management for assistance with prescriptions as patient has no medications and cannot afford them Patient also homeless - Constitutional Vitals: Temp Pulse Resp BP Pulse Ox 98.1 F 84 14 107/73 97 03/12/18 15:00 03/12/18 15:00 03/12/18 15:00 03/12/18 15:00 03/12/18 15:00 General appearance: Present: cooperative, A&O X 3, pleasant, no acute distress, answers questions appropriately - Respiratory Respiratory exam: Present: CTAB. Absent: accessory muscle use, rales, rhonchi, wheezes - Cardiovascular Cardiovascular exam: Present: RRR, +S1, +S2. Absent: diastolic murmur, gallop, rubs, systolic murmur Internal Medicine: Result - Labs CBC & Chem 7: 03/12/18 05:23 03/12/18 05:23 Labs: Short CBC 03/12/18 Range/Units 05:23 WBC 7.2 (4.3-11.1) K/mcL Hgb 11.7 L D (12.9-16.9) g/dL Hct 34.6 L (37.5-50.1) % Plt Count 253 (140-400) K/mcL Neutrophils # 4.7 (1.6-8.9) K/mcL BMP 03/12/18 05:23 Sodium 133 L Potassium 4.0 Chloride 99 Carbon Dioxide 29 BUN 18 Creatinine 0.55 L Glucose 232 H Calcium 8.3 L Liver Function 03/12/18 Range/Units 05:23 Total Bilirubin 0.2 L (0.3-1.0) mg/dL AST 45 H (13-39) Units/L ALT 42 (7-52) Units/L Alkaline Phosphatase 96 (34-104) Units/L Albumin 2.9 L (3.5-5.7) g/dL Consult Discharge Plan - Plan Referrals: NONE,PCP [Primary Care Provider] -
[2018-03-12 23:37] LABS: Estimated Average Glucose 283 mg/dl; Hemoglobin A1C 11.5 %
[2018-03-13] MEDS: Insulin LISPRO 300 UNITS/3 ML VIAL SQ SCH ×4 (00:01→16:57)
[2018-03-13] MEDS: *HR* Heparin 5,000 UNIT/ML VIAL SQ SCH ×2 (05:26→18:06)
[2018-03-13] MEDS: Gabapentin 400 MG CAPSULE PO SCH ×3 (08:10→22:39)
[2018-03-13] MEDS: Venlafaxine XR (24 HR) 75 MG CAP.ER.24H PO SCH (08:10)
[2018-03-13] MEDS: Insulin NPH/REG 70/30 100 UNIT/ML (x5UNIT) SQ SCH ×3 (08:13→23:08)
[2018-03-13 09:26] LABS: Basophils % 0.2 %; Eosinophils # 0.1 K/mcL (0.0-0.6); Eosinophils % 1.4 %; Hematocrit 37.9 % (37.5-50.1); Hemoglobin 12.7 g/dL (12.9-16.9); Immature Granulocytes % 0.6 % (0-4); Lymphocytes # 1.7 K/mcL (0.6-4.6); Lymphocytes % 20.6 %; Mean Corpuscular HGB Conc 33.5 g/dL (31.6-35.5); Mean Corpuscular Hemoglobin 29.1 pg (28.0-33.3); Mean Corpuscular Volume 86.9 fL (83.0-100.0); Mean Platelet Volume 9.4 fL (9.4-12.4); Monocytes # 0.4 K/mcL (0.0-1.3); Monocytes % 5.2 %; Platelet Count 270 K/mcL (140-400); Red Blood Count 4.36 M/mcL (4.19-5.50); Red Cell Distribution Width 13.2 % (11.5-14.5)
[2018-03-13 09:45] LABS: BUN/Creatinine Ratio 25 (6-26); Blood Urea Nitrogen 16 mg/dL (6-20); Calcium 8.4 mg/dL (8.6-10.3); Carbon Dioxide 30 mEq/L (23-29); Chloride 95 mEq/L (98-107); Glucose 324 mg/dL (70-105); Osmolality,Calculated 284 (280-300); Potassium 4.6 mEq/L (3.5-5.1); Sodium 130 mEq/L (136-145); eGFR For African Americans > 60 (> 60); eGFR For Non-African Americans > 60 (> 60)
--- NOTE | 2018-03-13 18:48 | Internal Med Progress Note ---
Date of Encounter: 03/13/18 Time of Encounter: 11:00 - Assessment and plan (1) Poorly controlled diabetes mellitus Current Visit: No Status: Acute Assessment and plan: Hemoglobin A1c of 11.2 Patient with uncontrolled blood glucose levels Patient's Humulin 70/30 was changed to 40 units in the a.m. and 20 units daily at bedtime Will monitor overnight for proper glucose control (2) DKA (diabetic ketoacidoses) Current Visit: No Status: Resolved Assessment and plan: Resolved; insulin management as above Qualifiers: Diabetes mellitus type: type 1 Diabetes mellitus complication detail: without coma Qualified Code(s): E10.10 - Type 1 diabetes mellitus with ketoacidosis without coma (3) Hyponatremia Current Visit: Yes Status: Acute Assessment and plan: Resolved; secondary to hyperglycemia (pseudohyponatremia). Continue to monitor (4) Mood disorder Current Visit: Yes Status: Acute (5) Hepatitis C Current Visit: No Status: Chronic Qualifiers: Viral hepatitis chronicity: chronic Hepatic coma status: without hepatic coma Qualified Code(s): B18.2 - Chronic viral hepatitis C (6) History of seizures Current Visit: No Status: Chronic (7) IV drug abuse Current Visit: No Status: Chronic (8) DVT prophylaxis Current Visit: No Status: Acute - Time Spent With Patient Total time spent is greater than 50% in coordination of care (as documented) at patient's floor/unit and/or counseling patient: - Subjective Interval history: Patient with glucose control issues overnight and this morning Continuing to adjust insulin for proper diabetic management - Constitutional Vitals: Temp Pulse Resp BP Pulse Ox 98.1 F 89 15 130/80 97 03/13/18 13:50 03/13/18 13:50 03/13/18 13:50 03/13/18 13:50 03/13/18 13:50 General appearance: Present: cooperative, A&O X 3, pleasant, no acute distress, answers questions appropriately - Cardiovascular Cardiovascular exam: Present: RRR, +S1, +S2. Absent: diastolic murmur, gallop, rubs, systolic murmur Internal Medicine: Result - Labs CBC & Chem 7: 03/13/18 09:14 03/13/18 09:14 Labs: Short CBC 03/13/18 Range/Units 09:14 WBC 8.4 (4.3-11.1) K/mcL Hgb 12.7 L (12.9-16.9) g/dL Hct 37.9 (37.5-50.1) % Plt Count 270 (140-400) K/mcL Neutrophils # 6.0 (1.6-8.9) K/mcL BMP 03/13/18 09:14 Sodium 130 L Potassium 4.6 Chloride 95 L Carbon Dioxide 30 H BUN 16 Creatinine 0.65 L Glucose 324 H Calcium 8.4 L Consult Discharge Plan - Plan Referrals: Lenin Ortega DO [Resident] - 03/17/18 10:00 am
[2018-03-13] MEDS ORDERED: Insulin LISPRO 300 UNITS/3 ML VIAL SQ SCH (21:00)
[2018-03-13] MEDS: 0.9 % Sodium Chloride 1,000 ML IVC SCH ×6 (23:09→23:14)
[2018-03-14] MEDS: *HR* Heparin 5,000 UNIT/ML VIAL SQ SCH (05:52)
[2018-03-14] MEDS: Insulin LISPRO 300 UNITS/3 ML VIAL SQ SCH ×2 (07:59→11:46)
[2018-03-14] MEDS: Insulin NPH/REG 70/30 100 UNIT/ML (x5UNIT) SQ SCH (08:00)
[2018-03-14] MEDS: Gabapentin 400 MG CAPSULE PO SCH ×2 (08:00→14:30)
[2018-03-14] MEDS: Venlafaxine XR (24 HR) 75 MG CAP.ER.24H PO SCH (08:01)
[2018-03-14 10:06] VITALS: BP 117/74
--- NOTE | 2018-03-14 12:54 | Discharge Summary ---
- NOTES TO OUTPATIENT PROVIDER Notes to Outpatient Provider: f/u with PCP in one week. Changed your insulin NPH/reg 70/30 dose to 25 U in AM and 15 U in PM. Hold your regular insulin sliding scale coverage for now. If your blood sugars are elavted more than 250- 300, then you an start taking low dose ISS. Date of Encounter: 03/14/18 Time of Encounter: 12:51 - Discharge Diagnosis (1) DKA (diabetic ketoacidoses) Priority: Primary Status: Resolved Qualifiers: Diabetes mellitus type: type 1 Diabetes mellitus complication detail: without coma Qualified Code(s): E10.10 - Type 1 diabetes mellitus with ketoacidosis without coma (2) IV drug abuse Priority: Secondary Status: Chronic (3) Hepatitis C Priority: Secondary Status: Chronic Qualifiers: Viral hepatitis chronicity: chronic Hepatic coma status: without hepatic coma Qualified Code(s): B18.2 - Chronic viral hepatitis C (4) History of seizures Priority: Secondary Status: Chronic (5) DVT prophylaxis Priority: Secondary Status: Acute (6) Poorly controlled diabetes mellitus Priority: Secondary Status: Acute (7) Hyponatremia Priority: Primary Status: Acute (8) Mood disorder Priority: Secondary Status: Acute Hospital course: Mr. Lemus is a 32 year old male with known type 1 DM, who was admitted here for severe hyperglycemia. Pt was started on aggressive IV hydration and Insulin gtt. His symptoms started improving slowly. His HbA1C 11.5. Also he does have some fluctuation sin BS, so recommend to use insulin NPH/reg 70/30 dose to 25 U in AM and 15 U in PM. Hold your regular insulin sliding scale coverage for now. If your blood sugars are elevated more than 250- 300, then you an start taking low dose ISS. Recommend to f/u with PCP in one week. SW helping the pt to arrange for his insulin. - Time Spent with Patient Total time spent providing and/or coordinating discharge services: - Discharge Medications Prescriptions: Insulin NPH/REG 70/30 (HUMAN) [Humulin 70/30 Vial] 15 unit SQ QPM #1 Insulin NPH/REG 70/30 (HUMAN) [Humulin 70/30 Vial] 25 unit SQ QAM #1 bottle Home Medications: Venlafaxine HCl [Venlafaxine HCl ER] 75 mg PO DAILY 01/23/18 [History] Gabapentin [Neurontin] 800 mg PO TID #90 tablet 02/04/18 [Rx] Phenytoin ER [Dilantin ER] 100 mg PO TID #90 capsule 02/04/18 [Rx] Quetiapine Fumarate [Seroquel] 300 mg PO HS 02/08/18 [History] Acetaminophen [Tylenol] 650 mg PO Q6HR PRN tablet 02/12/18 [Rx] Insulin NPH/REG 70/30 (HUMAN) [Humulin 70/30 Vial] 15 unit SQ QPM #1 03/14/18 [ Rx] Insulin NPH/REG 70/30 (HUMAN) [Humulin 70/30 Vial] 25 unit SQ QAM #1 bottle [Rx] Allergies/Adverse Reactions: 3 Allergy/AdvReac Type Severity Reaction Status Date / Time insulin glargine Allergy Blister Verified 03/01/18 13:19 [From Lantus] diphenhydramine AdvReac Intermediate See Verified 03/01/18 13:19 [From Benadryl] Comments Date of admission: 03/11/18 04:03 Primary care physician: PCP NONE Consults: 03/11/18 18:52 Consult to Soft Boarder [CONS] Routine Reason for SW Consult: discharge planning. Pt does not have the means to obtain home medications. 03/12/18 10:26 Consult to Case Management [CONS] Routine Comment: homeless and can't afford meds; admitted for DKA - Constitutional Vitals: Temp Pulse Resp BP Pulse Ox 97.7 F 89 15 117/74 98 03/14/18 10:04 03/14/18 10:04 03/14/18 10:04 03/14/18 10:04 03/14/18 10:04 General appearance: Present: cooperative, A&O X 3, pleasant, no acute distress, answers questions appropriately - Head Head exam: Present: atraumatic, normal inspection - Neck Neck exam general surgery: Present: supple - Respiratory Respiratory exam: Present: decreased breath sounds. Absent: rales, respiratory distress, rhonchi, wheezes - Cardiovascular Cardiovascular exam: Present: RRR, +S1, +S2. Absent: tachycardia - GI/Abdominal GI/Abdominal exam: Present: normal bowel sounds, soft. Absent: rebound, rigid, tenderness - Extremities Exam Extremities exam: Absent: calf tenderness, pedal edema, tenderness - Back Exam Back exam: Absent: CVA tenderness (L), CVA tenderness (R) - Neurological Exam Neurological exam: Present: alert, oriented X3 - Patient Status Disposition: Home, Self-Care Condition: Good Overall status at discharge: patient is back to baseline - Discharge Instructions Follow Up With: Lenin Ortega DO [Resident] - 03/17/18 10:00 am - Diet and Activity Activity: increase activity as tolerated Diet: low salt diet
--- NOTE | 2018-03-17 09:04 | Electrocardiograph Report ---
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
--- NOTE | 2018-03-17 09:10 | Electrocardiograph Report ---
[place] [address] Test Date: 2018-03-11 Pat Name: John Lemus Department: 110 Room: 3A Gender: M Security Associate: YESICA : 1985 Requested By: Nirmal Philip MD Order Number: [id number] Reading MD: Woo Vasquez Measurements Intervals [place] Rate: 67 P: 56 NM: 121 QRS: 71 QRSD: 93 T: 62 QT: 424 QTc: 439 Interpretive Statements SINUS RHYTHM NONSPECIFIC T-WAVE ABNORMALITY Electronically Signed On 03-17-2018 9:09:16 EDT by Woo Vasquez
== END 2018-03-14 14:55 | disposition home or self-care (01) ==
LOC: EMEROO 21:07 → 2NNU 21:07 → 3ANU 03-11 20:32
PROVIDERS: ADMIT Internal Medicine; ATTEND Hospitalist

== ENCOUNTER 2018-04-09 18:00 | Observation (INO) ==
--- NOTE | 2018-04-09 18:07 | Emergency Department Note ---
Disposition Clinical Impression: Diabetes mellitus with hyperglycemia Qualifiers: Diabetes mellitus type: type 1 Qualified Code(s): E10.65 - Type 1 diabetes mellitus with hyperglycemia Disposition: Admitted As Inpatient Condition: Good Referrals: NONE,PCP [Primary Care Provider] - Time of Disposition: 19:41 General Adult HPI - General Stated complaint: high glucose Time Seen by Provider: 04/09/18 18:03 Source: patient, EMS Mode of arrival: EMS Limitations: no limitations Nursing Notes Reviewed: Yes Vital Signs Reviewed: Yes - History of Present Illness HPI Narrative: 32-year-old diabetic comes in stating that his glucose control been having some diarrhea. Squad notes his glucoses in the fourth 70 range. The stick glucose on arrival here is 506. 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 Pain Severity: moderate Associated symptoms: Reports: other (Diarrhea) - Related Data Previous Rx's Medication Instructions Recorded Gabapentin [Neurontin] 800 mg PO TID #90 tablet 03/14/18 Insulin NPH/REG 70/30 (HUMAN) 15 unit SQ QPM #1 03/14/18 [Humulin 70/30 Vial] Insulin NPH/REG 70/30 (HUMAN) 25 unit SQ QAM #1 bottle 03/14/18 [Humulin 70/30 Vial] Phenytoin ER [Dilantin ER] 100 mg PO TID #90 capsule 03/14/18 Quetiapine Fumarate [Seroquel] 300 mg PO HS #30 tablet 03/14/18 Venlafaxine HCl [Venlafaxine HCl 75 mg PO DAILY #30 cap.er.24h 03/14/18 ER] Allergies Allergy/AdvReac Type Severity Reaction Status Date / Time insulin glargine Allergy Blister Verified 04/01/18 13:52 [From Lantus] diphenhydramine AdvReac Intermediate See Verified 04/01/18 13:52 [From Benadryl] Comments All systems ED: reviewed and negative except as stated. Constitutional: Denies: fever, chills, weakness, weight change Eyes: Denies: eye pain, eye discharge, vision change ENT ED: Denies: ear pain, throat pain, dental pain, hearing loss, epistaxis, congestion, dysphagia Cardiovascular: Denies: chest pain, palpitations, dyspnea on exertion, edema, syncope Respiratory: Denies: cough, dyspnea, wheezes, hemoptysis, stridor Gastrointestinal: Reports: diarrhea. Denies: abdominal pain, nausea, vomiting, constipation, hematemesis, melena, hematochezia Genitourinary: Denies: urgency, dysuria, frequency, hematuria Musculoskeletal: Denies: back pain, neck pain, arthralgia, myalgia Integumentary: Denies: rash, abrasion, lesions Neurological: Denies: headache, weakness, numbness, paresthesias, confusion, abnormal gait, vertigo Psychiatric: Denies: anxiety, depression, suicidal thoughts, homicidal thoughts , auditory hallucinations, visual hallucinations Endocrine: Denies: fatigue Hematological/Lymphatic: Denies: easy bleeding, easy bruising Allergic/Immunologic: Denies: facial swelling, urticaria Past Medical History - Past Medical History Medical history: Reports: diabetes, hepatitis, seizures Surgical history: Reports: orthopedic, other Psychiatric history: Reports: anxiety, bipolar, depression, prior suicide attempt, schizophrenia, previous psychiatric hospitalization - Social History Smoking Status: Current every day smoker Smokeless Tobacco Status: No Alcohol use: Reports: rarely Drug use: Reports: opiates, marijuana, methamphetamine, IV Drug Use Physical Exam - General Limitations: no limitations General appearance: alert, in no apparent distress - Head Head exam: atraumatic, normocephalic, normal inspection - Eye Eye exam: Present: normal appearance, PERRL, EOMI - ENT ENT exam: normal exam, normal oropharynx, mucous membranes moist - Neck Neck exam: Present: normal inspection, full ROM, trachea midline - Chest Chest inspection: Present: normal inspection, symmetric chest wall rise - Respiratory Respiratory exam: Present: normal lung sounds bilaterally - Cardiovascular Cardiovascular exam: Present: regular rate, normal rhythm, normal heart sounds - Abdominal Exam Abdominal exam: Present: soft, Non-Tender. Absent: tenderness, distention, guarding, rebound, rigidity - Extremities Exam Extremities exam: Present: normal inspection, full ROM. Absent: tenderness, pedal edema - Expanded Lower Extremity Exam Neurovascular/Tendon exam: Absent: motor deficit, sensory deficit, tendon deficit Gait: observed and normal - Back Exam Back exam: Present: normal inspection, full ROM. Absent: tenderness - Neurological Exam Neurological exam: Present: alert, oriented X3 - Psychiatric Psychiatric exam: Present: normal affect, normal mood - Skin Skin exam: Present: warm, dry, intact, normal color Course - Reevaluation(s) Reevaluation #1: 32-year-old with a history of diabetes comes in with diarrhea says his glucose is out of control. Patient will be admitted for further evaluation and treatment. Time: 19:37 - Consultations Consultation #1: Discussed with , admit. Time: 19:37 Vital Signs Temperature 98.2 F 04/09/18 18:01 Pulse Rate 107 04/09/18 18:01 Respiratory Rate 18 04/09/18 18:01 Blood Pressure 131/79 04/09/18 18:01 O2 Sat by Pulse Oximetry 96 04/09/18 18:01 Temperature 98.2 F 04/09/18 18:01 Pulse Rate 107 04/09/18 18:01 Respiratory Rate 18 04/09/18 18:01 Blood Pressure 131/79 04/09/18 18:01 O2 Sat by Pulse Oximetry 96 04/09/18 18:01 Oxygen Delivery Oxygen Delivery Room Air Medical Decision Making - Lab Data Lab results reviewed: Yes I reviewed the patient's lab results. Result diagrams: 04/09/18 18:37 04/09/18 18:37 Lab Results 04/09/18 04/09/18 04/09/18 Range/Units 18:03 18:04 18:37 WBC 8.6 (4.3-11.1) K/mcL RBC 3.54 L (4.19-5.50) M/mcL Hgb 10.6 L (12.9-16.9) g/dL Hct 31.3 L (37.5-50.1) % MCV 88.4 (83.0-100.0) fL MCH 29.9 (28.0-33.3) pg MCHC 33.9 (31.6-35.5) g/dL RDW 14.9 H (11.5-14.5) % Plt Count 269 (140-400) K/mcL MPV 8.8 L (9.4-12.4) fL Immature Gran % 1.2 (0-4) % Seg Neutrophils % 64.0 % Lymphocytes % 26.0 % Monocytes % 7.5 % Eosinophils % 1.0 % Basophils % 0.3 % Neutrophils # 5.5 (1.6-8.9) K/mcL Lymphocytes # 2.2 (0.6-4.6) K/mcL Monocytes # 0.6 (0.0-1.3) K/mcL Eosinophils # 0.1 (0.0-0.6) K/mcL Basophils # 0.0 (0.0-0.2) K/mcL VBG pH (7.32-7.42) pH Units VBG pCO2 (41-51) mmHg VBG pO2 (25-50) mmHg VBG HCO3 (21-27) mEq/L Sodium (136-145) mEq/L Potassium (3.5-5.1) mEq/L Chloride (98-107) mEq/L Carbon Dioxide (23-29) mEq/L BUN (6-20) mg/dL Glucose (70-105) mg/dL POC Glucose 478 H* 506 H* (70-99) mg/dL Calculated Osmolality (280-300) Calcium (8.6-10.3) mg/dL Total Bilirubin (0.3-1.0) mg/dL Direct Bilirubin (0.0-0.2) mg/dL Indirect Bilirubin (0.0-1.2) mg/dL AST (13-39) Units/L ALT (7-52) Units/L Alkaline Phosphatase (34-104) Units/L Troponin I (< 0.04) ng/mL Serum Total Protein (6.4-8.9) g/dL Albumin (3.5-5.7) g/dL Globulin (2.4-3.5) g/dL Albumin/Globulin Ratio (1.1-2.2) Amylase (29-103) Units/L Lipase (11-82) Units/L Beta-Hydroxybutyric Acd (0.02-0.27) mmol/L 04/09/18 04/09/18 04/09/18 Range/Units 18:37 18:37 18:49 WBC (4.3-11.1) K/mcL RBC (4.19-5.50) M/mcL Hgb (12.9-16.9) g/dL Hct (37.5-50.1) % MCV (83.0-100.0) fL MCH (28.0-33.3) pg MCHC (31.6-35.5) g/dL RDW (11.5-14.5) % Plt Count (140-400) K/mcL MPV (9.4-12.4) fL Immature Gran % (0-4) % Seg Neutrophils % % Lymphocytes % % Monocytes % % Eosinophils % % Basophils % % Neutrophils # (1.6-8.9) K/mcL Lymphocytes # (0.6-4.6) K/mcL Monocytes # (0.0-1.3) K/mcL Eosinophils # (0.0-0.6) K/mcL Basophils # (0.0-0.2) K/mcL VBG pH 7.40 (7.32-7.42) pH Units VBG pCO2 42 (41-51) mmHg VBG pO2 171 H (25-50) mmHg VBG HCO3 26 (21-27) mEq/L Sodium 132 L (136-145) mEq/L Potassium 3.9 (3.5-5.1) mEq/L Chloride 98 (98-107) mEq/L Carbon Dioxide 23 (23-29) mEq/L BUN 14 (6-20) mg/dL Glucose 409 H (70-105) mg/dL POC Glucose (70-99) mg/dL Calculated Osmolality 292 (280-300) Calcium 8.6 (8.6-10.3) mg/dL Total Bilirubin 0.2 L (0.3-1.0) mg/dL Direct Bilirubin 0.0 (0.0-0.2) mg/dL Indirect Bilirubin 0.2 (0.0-1.2) mg/dL AST 58 H (13-39) Units/L ALT 65 H (7-52) Units/L Alkaline Phosphatase 102 (34-104) Units/L Troponin I < 0.03 (< 0.04) ng/mL Serum Total Protein 5.9 L (6.4-8.9) g/dL Albumin 3.5 (3.5-5.7) g/dL Globulin 2.4 (2.4-3.5) g/dL Albumin/Globulin Ratio 1.5 (1.1-2.2) Amylase 35 (29-103) Units/L Lipase 49 (11-82) Units/L Beta-Hydroxybutyric Acd 0.18 (0.02-0.27) mmol/L - EKG Data EKG #1 EKG attestation: Yes I reviewed and interpreted this EKG. EKG shows normal: sinus rhythm Rate: normal Rhythm: NSR Momence/QRS: normal Interpretation: no acute changes
[2018-04-09] MEDS ORDERED: 0.9 % Sodium Chloride 1,000 ML IVC ONE ×2 (18:08→19:37)
[2018-04-09 18:52] LABS: VBG HCO3 26 mEq/L (21-27); VBG PCO2 42 mmHg (41-51); VBG PO2 171 mmHg (25-50)
[2018-04-09 18:52] LABS: Basophils % 0.3 %; Eosinophils # 0.1 K/mcL (0.0-0.6); Hematocrit 31.3 % (37.5-50.1); Hemoglobin 10.6 g/dL (12.9-16.9); Immature Granulocytes % 1.2 % (0-4); Lymphocytes # 2.2 K/mcL (0.6-4.6); Mean Corpuscular HGB Conc 33.9 g/dL (31.6-35.5); Mean Corpuscular Hemoglobin 29.9 pg (28.0-33.3); Mean Corpuscular Volume 88.4 fL (83.0-100.0); Mean Platelet Volume 8.8 fL (9.4-12.4); Monocytes # 0.6 K/mcL (0.0-1.3); Monocytes % 7.5 %; Neutrophils # 5.5 K/mcL (1.6-8.9); Platelet Count 269 K/mcL (140-400); Red Blood Count 3.54 M/mcL (4.19-5.50); Red Cell Distribution Width 14.9 % (11.5-14.5)
[2018-04-09] MEDS ORDERED: Insulin Human Regular 8 UNIT in 0.9 % Sodium Chloride 10 ML IV ONE (19:18)
[2018-04-09] MEDS ORDERED: *HR* Dextrose 50 % in Water (Syg) 50 ML SYRINGE IVP PRN ×2 (19:20→20:20)
[2018-04-09 19:25] LABS: Alanine Aminotransferase 65 Units/L (7-52); Albumin 3.5 g/dL (3.5-5.7); Albumin/Globulin Ratio 1.5 (1.1-2.2); Alkaline Phosphatase 102 Units/L (34-104); Aspartate Amino Transferase 58 Units/L (13-39); Bilirubin,Indirect 0.2 mg/dL (0.0-1.2); Bilirubin,Total 0.2 mg/dL (0.3-1.0); Blood Urea Nitrogen 14 mg/dL (6-20); Calcium 8.6 mg/dL (8.6-10.3); Carbon Dioxide 23 mEq/L (23-29); Chloride 98 mEq/L (98-107); Globulin 2.4 g/dL (2.4-3.5); Glucose 409 mg/dL (70-105); Osmolality,Calculated 292 (280-300); Potassium 3.9 mEq/L (3.5-5.1); Sodium 132 mEq/L (136-145); Total Protein 5.9 g/dL (6.4-8.9)
[2018-04-09 19:26] LABS: Amylase 35 Units/L (29-103); Lipase 49 Units/L (11-82); Troponin I < 0.03 ng/mL (< 0.04)
[2018-04-09] MEDS ORDERED: Insulin Human Regular 100 UNIT in 0.9 % Sodium Chloride 100 ML IVC SCH (19:30)
[2018-04-09 19:45] LABS: BUN/Creatinine Ratio 22 (6-26); eGFR For African Americans > 60 (> 60); eGFR For Non-African Americans > 60 (> 60)
[2018-04-09 20:04] LABS: Bilirubin,Urine Negative (Negative); Blood,Urine Negative (Negative); Clarity,Urine Clear (Clear); Color,Urine Yellow (Yellow); Glucose,Urine (UA) >=1000 mg/dL (Normal); Ketones,Urine Negative (Negative); Leukocyte Esterase,Urine Negative (Negative); Nitrite,Urine Negative (Negative); Protein,Urine Negative (Neg-Trace); Specific Gravity,Urine > 1.030 (1.010-1.025); Urobilinogen,Urine Normal (Normal)
[2018-04-09] MEDS ORDERED: Acetaminophen 325 MG TABLET PO PRN (20:16)
[2018-04-09] MEDS ORDERED: Naloxone 0.4 MG/ML INJ IVP PRN (20:16)
[2018-04-09] MEDS ORDERED: Ondansetron 4 MG/2 ML VIAL IVP PRN (20:16)
[2018-04-09] MEDS ORDERED: Dextrose Gel 15 GM/37.5 ML TUBE PO PRN ×2 (20:20)
[2018-04-09] MEDS ORDERED: D5% in Water 1,000 ML IVC PRN (20:20)
--- NOTE | 2018-04-09 20:48 | Internal Med History&Physical ---
Date of Encounter: 04/09/18 Time of Encounter: 20:00 Internal Medicine - H&P: HPI Chief complaint: High blood sugar Admitted From: Home Plans for Post Hospital Care: Home History of present illness: Mr. Lemus is a 32 year old male presented to ER for high blood sugar. Past medical history is significant for diabetes, seizure, hep C, bipolar disorder. Patient said he feels weak, mild nausea for about 3 days. No vomiting. Patient thought he has a high blood sugar but his glucometer is broken and he cannot measure glucose by himself. Patient denies a fever, runny nose, sore throat, abdominal pain. He has few times softer stool this morning. In the emergency room, he was found glucose high to 500s. Ketone negative. Patient was admitted for uncontrolled diabetes. I have discussed CODE STATUS with this young gentleman. He apparently fully understand the conversation and clearly told me he does not want resuscitation or intubation. DNR DNI placed. Past Med Surg Social Fam HX - Past Medical History Medical history: diabetes, hepatitis, seizures Psychiatric history: anxiety, bipolar, depression, prior suicide attempt, schizophrenia, previous psychiatric hospitalization - Past Surgical History Surgical History: orthopedic, other - Social History Smoking Status: Current every day smoker Smokeless Tobacco Status: No Alcohol use: rarely Drug use: opiates, marijuana, methamphetamine, IV Drug Use - Family History Father Family Member Ethnicity: Non- Living Status: Hx Family Cardiac Disorders: Yes (MD) Hx Family Endocrine Disorder: Yes (DM) Mother Family Member Ethnicity: Non- Living Status: Still Living Sister Family Member Ethnicity: Non- Living Status: Still Living Internal Medicine - H&P: Meds Gabapentin [Neurontin] 800 mg PO TID #90 tablet 03/14/18 [Rx] Insulin NPH/REG 70/30 (HUMAN) [Humulin 70/30 Vial] 15 unit SQ QPM #1 03/14/18 [ Rx] Insulin NPH/REG 70/30 (HUMAN) [Humulin 70/30 Vial] 25 unit SQ QAM #1 bottle [Rx] Phenytoin ER [Dilantin ER] 100 mg PO TID #90 capsule 03/14/18 [Rx] Quetiapine Fumarate [Seroquel] 300 mg PO HS #30 tablet 03/14/18 [Rx] Venlafaxine HCl [Venlafaxine HCl ER] 75 mg PO DAILY #30 cap.er.24h 03/14/18 [Rx] 3 Allergy/AdvReac Type Severity Reaction Status Date / Time insulin glargine Allergy Blister Verified 04/01/18 13:52 [From Lantus] diphenhydramine AdvReac Intermediate See Verified 04/01/18 13:52 [From Benadryl] Comments All Systems PM: A 10-system review of systems was performed and is negative for pertinent findings except as documented above in the HPI. - Constitutional Vitals: Temp Pulse Resp BP Pulse Ox 98.2 F 107 16 126/76 96 04/09/18 18:01 04/09/18 18:01 04/09/18 20:25 04/09/18 20:25 04/09/18 18:01 General appearance: Present: mild distress, A&O X 3, answers questions appropriately - Head Head exam: Present: atraumatic, normocephalic - Eye Eye exam: Present: PERRL, conjuntiva pink, sclera anicteric Pupils: Present: PERRL - Neck Neck exam general surgery: Present: supple, trachea midline. Absent: lymphadenopathy - Respiratory Respiratory exam: Present: CTAB. Absent: accessory muscle use, rales, rhonchi, wheezes - Cardiovascular Cardiovascular exam: Present: RRR, +S1, +S2. Absent: diastolic murmur, gallop, rubs, systolic murmur - GI/Abdominal GI/Abdominal exam: Present: normal bowel sounds, soft, no peritoneal signs. Absent: distended, tenderness - Extremities Exam Extremities exam: Present: warm, radial pulses palpable and symmetrical. Absent : calf tenderness, cyanotic, pedal edema - Neurological Exam Neurological exam: Present: CN II-XII intact, oriented X3, no focal deficits. Absent: pronater drift, facial droop, speech deficit - Skin Skin exam: Present: dry, intact Internal Med - H&P Results - Labs CBC & Chem 7: 04/09/18 18:37 04/09/18 18:37 - Assessment and plan (1) Uncontrolled diabetes mellitus Current Visit: Yes Status: Acute Assessment and plan: Patient has poorly controlled diabetes. No ketone. AG 11. - Place patient on basal and sliding scale insulin coverage, closely monitor glucose level, adjust insulin dose per glucose level. - Patient need to be prescribed glucometer meter upon discharge - IV fluid to correct dehydration - Potassium 40 mEq by mouth once as potassium will decrease after hypoglycemia corrected. Qualifiers: Diabetes mellitus type: type 1 Diabetes mellitus complication status: without complication Qualified Code(s): E10.65 - Type 1 diabetes mellitus with hyperglycemia (2) DVT prophylaxis Current Visit: No Status: Acute Assessment and plan: Patient is a young and ambulating well. No anticoagulation placed (3) Dehydration Current Visit: No Status: Acute Assessment and plan: Continue IV fluid. (4) Mood disorder Current Visit: No Status: Acute Assessment and plan: Continue home medications (5) Hepatitis C Current Visit: No Status: Chronic Assessment and plan: AST and ALT mildly elevated. Continue outpatient follow-up and treatment Qualifiers: Viral hepatitis chronicity: chronic Hepatic coma status: without hepatic coma Qualified Code(s): B18.2 - Chronic viral hepatitis C (6) History of seizures Current Visit: No Status: Chronic Assessment and plan: Continue home seizure medications (7) Tobacco abuse Current Visit: No Status: Chronic Assessment and plan: Smoking cessation education. Patient refuses nicotine patch - Time Spent With Patient Total time spent is greater than 50% in coordination of care (as documented) at patient's floor/unit and/or counseling patient: 40 minutes Greater than 35 minutes
[2018-04-09] MEDS ORDERED: Insulin LISPRO 300 UNITS/3 ML VIAL SQ SCH (21:00)
[2018-04-09] MEDS: Gabapentin 400 MG CAPSULE PO SCH (22:04)
[2018-04-09] MEDS: 0.9 % Sodium Chloride 1,000 ML IVC SCH (22:05)
[2018-04-10 05:22] LABS: Basophils % 0.5 %; Eosinophils # 0.2 K/mcL (0.0-0.6); Eosinophils % 2.3 %; Hematocrit 34.7 % (37.5-50.1); Hemoglobin 11.2 g/dL (12.9-16.9); Immature Granulocytes % 0.6 % (0-4); Lymphocytes % 30.7 %; Mean Corpuscular HGB Conc 32.3 g/dL (31.6-35.5); Mean Corpuscular Hemoglobin 28.9 pg (28.0-33.3); Mean Corpuscular Volume 89.4 fL (83.0-100.0); Mean Platelet Volume 9.1 fL (9.4-12.4); Monocytes # 0.5 K/mcL (0.0-1.3); Monocytes % 8.1 %; Neutrophils # 3.7 K/mcL (1.6-8.9); Platelet Count 252 K/mcL (140-400); Red Blood Count 3.88 M/mcL (4.19-5.50); Segmented Neutrophils % 57.8 %
[2018-04-10 05:43] LABS: BUN/Creatinine Ratio 22 (6-26); Blood Urea Nitrogen 10 mg/dL (6-20); Calcium 8.5 mg/dL (8.6-10.3); Carbon Dioxide 27 mEq/L (23-29); Chloride 105 mEq/L (98-107); Glucose 273 mg/dL (70-105); Magnesium 1.9 mg/dL (1.6-2.6); Osmolality,Calculated 291 (280-300); Potassium 4.7 mEq/L (3.5-5.1); Sodium 136 mEq/L (136-145); eGFR For African Americans > 60 (> 60); eGFR For Non-African Americans > 60 (> 60)
[2018-04-10] MEDS: 0.9 % Sodium Chloride 1,000 ML IVC SCH (05:59)
[2018-04-10] MEDS: Insulin LISPRO 300 UNITS/3 ML VIAL SQ SCH ×2 (08:38→11:09)
[2018-04-10] MEDS: Insulin NPH/REG 70/30 100 UNIT/ML (x5UNIT) SQ SCH ×2 (08:39→18:04)
[2018-04-10] MEDS: Gabapentin 400 MG CAPSULE PO SCH ×3 (08:39→20:55)
[2018-04-10] MEDS: Venlafaxine XR (24 HR) 75 MG CAP.ER.24H PO SCH (08:39)
--- NOTE | 2018-04-10 13:15 | Electrocardiograph Report ---
[address] [address] Test Date: 2018-04-09 Pat Name: John Lemus Department: 104 Room: [facility] Gender: M Welfare Specialist: HIMANSHU : 1985 Requested By: Amado Martinez Order Number: [id number] Reading MD: Blayne Sommers Measurements Intervals [place] Rate: 88 P: 60 TN: 126 QRS: 70 QRSD: 90 T: 62 QT: 356 QTc: 402 Interpretive Statements SINUS RHYTHM Electronically Signed On 04-10-2018 10:20:05 EDT by Blayne Sommers
--- NOTE | 2018-04-10 17:35 | Internal Med Progress Note ---
Date of Encounter: 04/10/18 Time of Encounter: 11:00 - Assessment and plan (1) Uncontrolled diabetes mellitus Current Visit: Yes Status: Acute Assessment and plan: Patient has poorly controlled diabetes. No ketone. AG 11 on admission-patient' s blood sugars have improved he did have a drop of blood sugar on 63 at noon today.-I will hold sliding scale for now continue with 70/30-did speak with social service agency director there is concern about patient obtaining food after discharge since he is homeless. Social service has worked with patient concerning shelters as well as food pantry's - Place patient on basal insulin coverage, closely monitor glucose level, adjust insulin dose per glucose level.-Holding sliding scale tonight - Patient need to be prescribed glucometer meter upon discharge-prescription has been written social service agency director attempting to obtain glucometer - Monitor electrolytes and replace as needed presently stable Qualifiers: Diabetes mellitus type: type 1 Diabetes mellitus complication status: without complication Qualified Code(s): E10.65 - Type 1 diabetes mellitus with hyperglycemia (2) Dehydration Current Visit: No Status: Acute Assessment and plan: Tolerating oral intake no diarrhea at this time continue to monitor electrolytes and replace as needed Monitor intake output (3) Hepatitis C Current Visit: No Status: Chronic Assessment and plan: AST and ALT mildly elevated. Continue outpatient follow-up and treatment Qualifiers: Viral hepatitis chronicity: chronic Hepatic coma status: without hepatic coma Qualified Code(s): B18.2 - Chronic viral hepatitis C (4) History of seizures Current Visit: No Status: Chronic Assessment and plan: Continue home seizure medications No signs and symptoms of seizure activity Seizure precautions (5) DVT prophylaxis Current Visit: No Status: Acute Assessment and plan: Patient is a young and ambulating well. No anticoagulation placed (6) Tobacco abuse Current Visit: No Status: Chronic Assessment and plan: Smoking cessation education. Patient refuses nicotine patch (7) Mood disorder Current Visit: No Status: Acute Assessment and plan: Continue home medications-patient was recently discharged from psychiatric hospital - Time Spent With Patient Total time spent is greater than 50% in coordination of care (as documented) at patient's floor/unit and/or counseling patient: - Subjective Interval history: I did review review medical records examine the patient at bedside. Patient is in bed denies any chest pain abdominal pain or shortness of breath. No loose stools at this time denies any nausea vomiting. Tolerating oral intake I reviewed treatment plan with the patient who verbalized understanding. - Constitutional Vitals: Temp Pulse Resp BP Pulse Ox 98.1 F 92 15 120/76 98 04/10/18 15:19 04/10/18 15:19 04/10/18 15:19 04/10/18 15:19 04/10/18 15:19 General appearance: Present: mild distress, A&O X 3, answers questions appropriately - Head Head exam: Present: atraumatic, normocephalic - Eye Eye exam: Present: PERRL, conjuntiva pink, sclera anicteric Pupils: Present: PERRL - Neck Neck exam general surgery: Present: supple, trachea midline. Absent: lymphadenopathy - Respiratory Respiratory exam: Present: CTAB. Absent: accessory muscle use, rales, rhonchi, wheezes - Cardiovascular Cardiovascular exam: Present: RRR, +S1, +S2. Absent: diastolic murmur, gallop, rubs, systolic murmur - GI/Abdominal GI/Abdominal exam: Present: normal bowel sounds, soft, no peritoneal signs. Absent: distended, tenderness - Extremities Exam Extremities exam: Present: warm, radial pulses palpable and symmetrical. Absent : calf tenderness, cyanotic, pedal edema - Neurological Exam Neurological exam: Present: CN II-XII intact, oriented X3, no focal deficits. Absent: pronater drift, facial droop, speech deficit - Skin Skin exam: Present: dry, intact Internal Medicine: Result - Labs CBC & Chem 7: 04/10/18 05:04 04/10/18 05:04 Labs: Short CBC 04/10/18 Range/Units 05:04 WBC 6.4 (4.3-11.1) K/mcL Hgb 11.2 L (12.9-16.9) g/dL Hct 34.7 L (37.5-50.1) % Plt Count 252 (140-400) K/mcL Neutrophils # 3.7 (1.6-8.9) K/mcL BMP 04/10/18 05:04 Sodium 136 Potassium 4.7 Chloride 105 Carbon Dioxide 27 BUN 10 Creatinine 0.45 L Glucose 273 H Calcium 8.5 L Consult Discharge Plan - Plan Referrals: Lenin Ortega DO [Resident] -
[2018-04-10] MEDS ORDERED: *HR* LORazepam 2 MG/ML VIAL IVP ONE (19:53)
[2018-04-11 07:14] LABS: Basophils % 0.5 %; Eosinophils # 0.2 K/mcL (0.0-0.6); Eosinophils % 2.7 %; Hematocrit 34.7 % (37.5-50.1); Hemoglobin 11.5 g/dL (12.9-16.9); Immature Granulocytes % 0.9 % (0-4); Lymphocytes # 1.4 K/mcL (0.6-4.6); Lymphocytes % 25.4 %; Mean Corpuscular HGB Conc 33.1 g/dL (31.6-35.5); Mean Corpuscular Hemoglobin 29.2 pg (28.0-33.3); Mean Corpuscular Volume 88.1 fL (83.0-100.0); Mean Platelet Volume 9.4 fL (9.4-12.4); Monocytes # 0.4 K/mcL (0.0-1.3); Monocytes % 7.2 %; Neutrophils # 3.5 K/mcL (1.6-8.9); Platelet Count 274 K/mcL (140-400); Red Blood Count 3.94 M/mcL (4.19-5.50); Red Cell Distribution Width 14.7 % (11.5-14.5); Segmented Neutrophils % 63.3 %
[2018-04-11 07:43] LABS: BUN/Creatinine Ratio 34 (6-26); Blood Urea Nitrogen 18 mg/dL (6-20); Calcium 8.8 mg/dL (8.6-10.3); Carbon Dioxide 25 mEq/L (23-29); Chloride 99 mEq/L (98-107); Glucose 362 mg/dL (70-105); Osmolality,Calculated 293 (280-300); Sodium 133 mEq/L (136-145); eGFR For African Americans > 60 (> 60); eGFR For Non-African Americans > 60 (> 60)
[2018-04-11] MEDS: Venlafaxine XR (24 HR) 75 MG CAP.ER.24H PO SCH (08:43)
[2018-04-11] MEDS: Insulin NPH/REG 70/30 100 UNIT/ML (x5UNIT) SQ SCH (08:43)
[2018-04-11] MEDS: Insulin LISPRO 300 UNITS/3 ML VIAL SQ SCH ×2 (08:43→12:47)
[2018-04-11] MEDS: Gabapentin 400 MG CAPSULE PO SCH (08:43)
[2018-04-11 10:41] VITALS: BP 122/82
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
== END 2018-04-11 13:39 | disposition home or self-care (01) ==
LOC: 3BNU 18:00 → EMEROO 18:00 → 3BNU 19:51
PROVIDERS: ADMIT Pediatrics; ATTEND Pediatrics

== ENCOUNTER 2018-04-19 08:39 | Inpatient (IN) ==
[2018-04-19 09:47] LABS: Basophils # 0.1 K/mcL (0.0-0.2); Basophils % 0.8 %; Eosinophils # 0.2 K/mcL (0.0-0.6); Eosinophils % 3.4 %; Hematocrit 38.9 % (37.5-50.1); Hemoglobin 12.9 g/dL (12.9-16.9); Immature Granulocytes % 0.5 % (0-4); Lymphocytes # 1.2 K/mcL (0.6-4.6); Lymphocytes % 17.9 %; Mean Corpuscular HGB Conc 33.2 g/dL (31.6-35.5); Mean Corpuscular Hemoglobin 29.6 pg (28.0-33.3); Mean Corpuscular Volume 89.2 fL (83.0-100.0); Mean Platelet Volume 8.9 fL (9.4-12.4); Monocytes # 0.5 K/mcL (0.0-1.3); Monocytes % 7.6 %; Neutrophils # 4.5 K/mcL (1.6-8.9); Platelet Count 313 K/mcL (140-400); Red Blood Count 4.36 M/mcL (4.19-5.50); Red Cell Distribution Width 14.4 % (11.5-14.5); Segmented Neutrophils % 69.8 %
--- NOTE | 2018-04-19 09:47 | Emergency Department Note ---
Disposition Clinical Impression: Suicidal ideation, Substance abuse, Hyperglycemia Disposition: Transfer Psychiatric Hosp Condition: Fair Time of Disposition: 13:08 General Adult HPI - General Chief complaint: ED Psychiatric Symptoms Stated complaint: Psych/SI Time Seen by Provider: 04/19/18 09:22 Source: patient Limitations: no limitations Nursing Notes Reviewed: Yes Vital Signs Reviewed: Yes - History of Present Illness HPI Narrative: Patient is a 32-year-old male that presents the emergency department for suicidal ideations. Patient states that over the past couple of days he has relapsed and is begin taking methamphetamine again. Patient states that he has been feeling suicidal and wanting to hurt himself. Patient states that he has a previous history of suicidal attempts. He states that he has overdosed and cut his wrists. Patient states that he has required admission to the hospital for his suicidal ideations and attempts in the past. Patient states he has a history of depression and anxiety however he has not been taking his medications over the past few days. Patient denies any hallucinations at this time. Patient denies any homicidal ideations. Pain Scale: 0 - Related Data Home Medications Medication Instructions Recorded Confirmed Venlafaxine XR (24 HR) [Effexor Xr] 150 mg PO DAILY 04/10/18 04/19/18 Previous Rx's Medication Instructions Recorded Gabapentin [Neurontin] 800 mg PO TID #90 tablet 03/14/18 Quetiapine Fumarate [Seroquel] 300 mg PO HS #30 tablet 03/14/18 Insulin Aspart Prot/Insuln Asp 20 units SQ BID #1 insuln.pen 04/11/18 [Novolog Mix 70-30 Flexpen Syrn] Insulin LISPRO [HumaLOG] See Protocol SQ TIDAC #1 vial 04/11/18 Phenytoin ER [Dilantin ER] 100 mg PO TID #90 capsule 04/11/18 Sulfamethoxazole/Trimeth DS 1 each PO BID 10 Days #20 tablet 04/18/18 [Bactrim DS] Allergies Allergy/AdvReac Type Severity Reaction Status Date / Time insulin glargine Allergy Blister Verified 04/19/18 08:57 [From Lantus] diphenhydramine AdvReac Intermediate See Verified 04/19/18 08:57 [From Benadryl] Comments All systems ED: reviewed and negative except as stated. Cardiovascular: Denies: chest pain Respiratory: Denies: dyspnea Gastrointestinal: Denies: abdominal pain, nausea, vomiting Genitourinary: Denies: urgency, dysuria, frequency Past Medical History - Past Medical History Medical history: Reports: diabetes, hepatitis, seizures Surgical history: Reports: orthopedic, other Psychiatric history: Reports: anxiety, bipolar, depression, prior suicide attempt, schizophrenia, previous psychiatric hospitalization - Social History Smoking Status: Current every day smoker Smokeless Tobacco Status: No Alcohol use: Reports: rarely Drug use: Reports: opiates, marijuana, methamphetamine, IV Drug Use Physical Exam - General Limitations: no limitations General appearance: alert, in no apparent distress - Head Head exam: atraumatic, normocephalic - Eye Eye exam: Present: normal appearance, EOMI - Neck Neck exam: Present: normal inspection, full ROM, trachea midline - Respiratory Respiratory exam: Present: normal lung sounds bilaterally. Absent: respiratory distress, wheezes - Cardiovascular Cardiovascular exam: Present: regular rate, normal rhythm, normal heart sounds, +S1, +S2 - Abdominal Exam Abdominal exam: Present: soft, Non-Tender, normal bowel sounds - Neurological Exam Neurological exam: Present: alert, oriented X3 - Psychiatric Psychiatric exam: Present: normal affect, normal mood - Skin Skin exam: Present: warm, dry, intact, other (multiple tattoos ) Course Vital Signs Temperature 97.6 F 04/19/18 08:43 Pulse Rate 84 04/19/18 08:43 Respiratory Rate 18 04/19/18 08:43 Blood Pressure 121/86 04/19/18 08:43 O2 Sat by Pulse Oximetry 97 04/19/18 08:43 Temperature 97.6 F 04/19/18 12:41 Pulse Rate 70 04/19/18 12:41 Respiratory Rate 18 04/19/18 12:41 Blood Pressure 123/79 04/19/18 12:41 O2 Sat by Pulse Oximetry 100 04/19/18 12:41 Oxygen Delivery Oxygen Delivery Room Air Medical Decision Making - MDM Narrative Medical decision making narrative: Due to the patient presented to the emergency department with suicidal ideation we will obtain basic medical screening labs including CBC, BMP, urinalysis, urine drug screen, ethanol, salicylate and acetaminophen. Once these a been completed the patient will need a psychiatric evaluation by 1A. Patient did have an elevated blood glucose and evidence of glucose in his urine due to being diabetic. Patient does have a sodium of 131 however the patient appears to be chronically hyponatremic. The remainder laboratory testing is unremarkable. 1A our psychiatric service to evaluate the patient and they felt that he should be admitted to the psychiatric service. The patient will be admitted to the psychiatric service at this time for further evaluation and management. - Lab Data Lab results reviewed: Yes I reviewed the patient's lab results. Result diagrams: 04/19/18 09:28 04/19/18 09:28 Lab Results 04/19/18 04/19/18 04/19/18 Range/Units 09:25 09:25 09:28 WBC 6.4 (4.3-11.1) K/mcL RBC 4.36 (4.19-5.50) M/mcL Hgb 12.9 (12.9-16.9) g/dL Hct 38.9 (37.5-50.1) % MCV 89.2 (83.0-100.0) fL MCH 29.6 (28.0-33.3) pg MCHC 33.2 (31.6-35.5) g/dL RDW 14.4 (11.5-14.5) % Plt Count 313 (140-400) K/mcL MPV 8.9 L (9.4-12.4) fL Immature Gran % 0.5 (0-4) % Seg Neutrophils % 69.8 % Lymphocytes % 17.9 % Monocytes % 7.6 % Eosinophils % 3.4 % Basophils % 0.8 % Neutrophils # 4.5 (1.6-8.9) K/mcL Lymphocytes # 1.2 (0.6-4.6) K/mcL Monocytes # 0.5 (0.0-1.3) K/mcL Eosinophils # 0.2 (0.0-0.6) K/mcL Basophils # 0.1 (0.0-0.2) K/mcL Sodium (136-145) mEq/L Potassium (3.5-5.1) mEq/L Chloride (98-107) mEq/L Carbon Dioxide (23-29) mEq/L BUN (6-20) mg/dL Creatinine (0.70-1.30) mg/dL Est GFR ( Amer) (> 60) Est GFR (Non-Af Amer) (> 60) BUN/Creatinine Ratio (6-26) Glucose (70-105) mg/dL Calculated Osmolality (280-300) Calcium (8.6-10.3) mg/dL Urine Color Yellow (Yellow) Urine Clarity Clear (Clear) Urine pH 6.0 (5.0-8.0) pH Units Ur Specific [place] > 1.030 H (1.010-1.025) Urine Protein Negative (Neg-Trace) mg/dL Urine Glucose (UA) >=1000 H (Normal) mg/dL Urine Ketones 40 H (Negative) mg/dL Urine Blood Negative (Negative) Urine Nitrite Negative (Negative) Urine Bilirubin Negative (Negative) Urine Urobilinogen Normal (Normal) mg/dL Ur Leukocyte Esterase Negative (Negative) Salicylates (15.0-30.0) mg/dL Urine Opiates Screen Negative (Hmvqmq=381) ng/mL Acetaminophen (10-20) mcg/mL Ur Barbiturates Screen Negative (Jgbrmi=231) ng/mL Ur Phencyclidine Scrn Negative (Cutoff=25) ng/mL Ur Amphetamines Screen Positive H (Qwmlgz=2599) ng/mL U Benzodiazepines Scrn Negative (Dkqikv=870) ng/mL Urine Cocaine Screen Negative (Cutoff= 300) ng/mL U Marijuana (THC) Screen Negative (Cutoff = 50) ng/mL Ethyl Alcohol (Less than 10) mg/dL 04/19/18 Range/Units 09:28 WBC (4.3-11.1) K/mcL RBC (4.19-5.50) M/mcL Hgb (12.9-16.9) g/dL Hct (37.5-50.1) % MCV (83.0-100.0) fL MCH (28.0-33.3) pg MCHC (31.6-35.5) g/dL RDW (11.5-14.5) % Plt Count (140-400) K/mcL MPV (9.4-12.4) fL Immature Gran % (0-4) % Seg Neutrophils % % Lymphocytes % % Monocytes % % Eosinophils % % Basophils % % Neutrophils # (1.6-8.9) K/mcL Lymphocytes # (0.6-4.6) K/mcL Monocytes # (0.0-1.3) K/mcL Eosinophils # (0.0-0.6) K/mcL Basophils # (0.0-0.2) K/mcL Sodium 131 L (136-145) mEq/L Potassium 4.3 (3.5-5.1) mEq/L Chloride 98 (98-107) mEq/L Carbon Dioxide 23 (23-29) mEq/L BUN 13 (6-20) mg/dL Creatinine 0.64 L (0.70-1.30) mg/dL Est GFR ( Amer) > 60 (> 60) Est GFR (Non-Af Amer) > 60 (> 60) BUN/Creatinine Ratio 20 (6-26) Glucose 385 H (70-105) mg/dL Calculated Osmolality 288 (280-300) Calcium 9.1 (8.6-10.3) mg/dL Urine Color (Yellow) Urine Clarity (Clear) Urine pH (5.0-8.0) pH Units Ur Specific [place] (1.010-1.025) Urine Protein (Neg-Trace) mg/dL Urine Glucose (UA) (Normal) mg/dL Urine Ketones (Negative) mg/dL Urine Blood (Negative) Urine Nitrite (Negative) Urine Bilirubin (Negative) Urine Urobilinogen (Normal) mg/dL Ur Leukocyte Esterase (Negative) Salicylates < 2.5 L (15.0-30.0) mg/dL Urine Opiates Screen (Utfuak=687) ng/mL Acetaminophen < 10 L (10-20) mcg/mL Ur Barbiturates Screen (Aqhwij=796) ng/mL Ur Phencyclidine Scrn (Cutoff=25) ng/mL Ur Amphetamines Screen (Xgfatq=6634) ng/mL U Benzodiazepines Scrn (Qftyct=369) ng/mL Urine Cocaine Screen (Cutoff= 300) ng/mL U Marijuana (THC) Screen (Cutoff = 50) ng/mL Ethyl Alcohol < 10 (Less than 10) mg/dL
--- NOTE | 2018-04-19 09:48 | Emergency Department Note ---
Disposition Clinical Impression: Suicidal ideation, Substance abuse, Hyperglycemia Disposition: Transfer Psychiatric Hosp Condition: Fair General Adult HPI - General Chief complaint: ED Psychiatric Symptoms Stated complaint: Psych/SI Time Seen by Provider: 04/19/18 09:22 Source: patient Limitations: no limitations - History of Present Illness Pain Scale: 0 - Related Data Home Medications Medication Instructions Recorded Confirmed Venlafaxine XR (24 HR) [Effexor Xr] 150 mg PO DAILY 04/10/18 04/19/18 Previous Rx's Medication Instructions Recorded Gabapentin [Neurontin] 800 mg PO TID #90 tablet 03/14/18 Quetiapine Fumarate [Seroquel] 300 mg PO HS #30 tablet 03/14/18 Insulin Aspart Prot/Insuln Asp 20 units SQ BID #1 insuln.pen 04/11/18 [Novolog Mix 70-30 Flexpen Syrn] Insulin LISPRO [HumaLOG] See Protocol SQ TIDAC #1 vial 04/11/18 Phenytoin ER [Dilantin ER] 100 mg PO TID #90 capsule 04/11/18 Sulfamethoxazole/Trimeth DS 1 each PO BID 10 Days #20 tablet 04/18/18 [Bactrim DS] Allergies Allergy/AdvReac Type Severity Reaction Status Date / Time insulin glargine Allergy Blister Verified 04/19/18 08:57 [From Lantus] diphenhydramine AdvReac Intermediate See Verified 04/19/18 08:57 [From Benadryl] Comments Cardiovascular: Denies: chest pain Respiratory: Denies: dyspnea Gastrointestinal: Denies: abdominal pain, nausea, vomiting Genitourinary: Denies: urgency, dysuria, frequency Past Medical History - Past Medical History Medical history: Reports: diabetes, hepatitis, seizures Surgical history: Reports: orthopedic, other Psychiatric history: Reports: anxiety, bipolar, depression, prior suicide attempt, schizophrenia, previous psychiatric hospitalization - Social History Smoking Status: Current every day smoker Smokeless Tobacco Status: No Alcohol use: Reports: rarely Drug use: Reports: opiates, marijuana, methamphetamine, IV Drug Use Physical Exam - General Limitations: no limitations General appearance: alert, in no apparent distress Course Vital Signs Temperature 97.6 F 04/19/18 08:43 Pulse Rate 84 04/19/18 08:43 Respiratory Rate 18 04/19/18 08:43 Blood Pressure 121/86 05/23/18 08:43 O2 Sat by Pulse Oximetry 97 04/19/18 08:43 Temperature 97.6 F 04/19/18 12:41 Pulse Rate 70 04/19/18 12:41 Respiratory Rate 18 04/19/18 12:41 Blood Pressure 123/79 04/19/18 12:41 O2 Sat by Pulse Oximetry 100 04/19/18 12:41 Oxygen Delivery Oxygen Delivery Room Air Medical Decision Making - Lab Data Result diagrams: 04/19/18 09:28 04/19/18 09:28 Lab Results 04/19/18 04/19/18 04/19/18 Range/Units 09:25 09:25 09:28 WBC 6.4 (4.3-11.1) K/mcL RBC 4.36 (4.19-5.50) M/mcL Hgb 12.9 (12.9-16.9) g/dL Hct 38.9 (37.5-50.1) % MCV 89.2 (83.0-100.0) fL MCH 29.6 (28.0-33.3) pg MCHC 33.2 (31.6-35.5) g/dL RDW 14.4 (11.5-14.5) % Plt Count 313 (140-400) K/mcL MPV 8.9 L (9.4-12.4) fL Immature Gran % 0.5 (0-4) % Seg Neutrophils % 69.8 % Lymphocytes % 17.9 % Monocytes % 7.6 % Eosinophils % 3.4 % Basophils % 0.8 % Neutrophils # 4.5 (1.6-8.9) K/mcL Lymphocytes # 1.2 (0.6-4.6) K/mcL Monocytes # 0.5 (0.0-1.3) K/mcL Eosinophils # 0.2 (0.0-0.6) K/mcL Basophils # 0.1 (0.0-0.2) K/mcL Sodium (136-145) mEq/L Potassium (3.5-5.1) mEq/L Chloride (98-107) mEq/L Carbon Dioxide (23-29) mEq/L BUN (6-20) mg/dL Creatinine (0.70-1.30) mg/dL Est GFR ( Amer) (> 60) Est GFR (Non-Af Amer) (> 60) BUN/Creatinine Ratio (6-26) Glucose (70-105) mg/dL Calculated Osmolality (280-300) Calcium (8.6-10.3) mg/dL Urine Color Yellow (Yellow) Urine Clarity Clear (Clear) Urine pH 6.0 (5.0-8.0) pH Units Ur Specific [place] > 1.030 H (1.010-1.025) Urine Protein Negative (Neg-Trace) mg/dL Urine Glucose (UA) >=1000 H (Normal) mg/dL Urine Ketones 40 H (Negative) mg/dL Urine Blood Negative (Negative) Urine Nitrite Negative (Negative) Urine Bilirubin Negative (Negative) Urine Urobilinogen Normal (Normal) mg/dL Ur Leukocyte Esterase Negative (Negative) Salicylates (15.0-30.0) mg/dL Urine Opiates Screen Negative (Kdleox=064) ng/mL Acetaminophen (10-20) mcg/mL Ur Barbiturates Screen Negative (Ybsvod=598) ng/mL Ur Phencyclidine Scrn Negative (Cutoff=25) ng/mL Ur Amphetamines Screen Positive H (Himyre=4151) ng/mL U Benzodiazepines Scrn Negative (Exvmxx=171) ng/mL Urine Cocaine Screen Negative (Cutoff= 300) ng/mL U Marijuana (THC) Screen Negative (Cutoff = 50) ng/mL Ethyl Alcohol (Less than 10) mg/dL 04/19/18 Range/Units 09:28 WBC (4.3-11.1) K/mcL RBC (4.19-5.50) M/mcL Hgb (12.9-16.9) g/dL Hct (37.5-50.1) % MCV (83.0-100.0) fL MCH (28.0-33.3) pg MCHC (31.6-35.5) g/dL RDW (11.5-14.5) % Plt Count (140-400) K/mcL MPV (9.4-12.4) fL Immature Gran % (0-4) % Seg Neutrophils % % Lymphocytes % % Monocytes % % Eosinophils % % Basophils % % Neutrophils # (1.6-8.9) K/mcL Lymphocytes # (0.6-4.6) K/mcL Monocytes # (0.0-1.3) K/mcL Eosinophils # (0.0-0.6) K/mcL Basophils # (0.0-0.2) K/mcL Sodium 131 L (136-145) mEq/L Potassium 4.3 (3.5-5.1) mEq/L Chloride 98 (98-107) mEq/L Carbon Dioxide 23 (23-29) mEq/L BUN 13 (6-20) mg/dL Creatinine 0.64 L (0.70-1.30) mg/dL Est GFR ( Amer) > 60 (> 60) Est GFR (Non-Af Amer) > 60 (> 60) BUN/Creatinine Ratio 20 (6-26) Glucose 385 H (70-105) mg/dL Calculated Osmolality 288 (280-300) Calcium 9.1 (8.6-10.3) mg/dL Urine Color (Yellow) Urine Clarity (Clear) Urine pH (5.0-8.0) pH Units Ur Specific [place] (1.010-1.025) Urine Protein (Neg-Trace) mg/dL Urine Glucose (UA) (Normal) mg/dL Urine Ketones (Negative) mg/dL Urine Blood (Negative) Urine Nitrite (Negative) Urine Bilirubin (Negative) Urine Urobilinogen (Normal) mg/dL Ur Leukocyte Esterase (Negative) Salicylates < 2.5 L (15.0-30.0) mg/dL Urine Opiates Screen (Btuakz=797) ng/mL Acetaminophen < 10 L (10-20) mcg/mL Ur Barbiturates Screen (Egafer=940) ng/mL Ur Phencyclidine Scrn (Cutoff=25) ng/mL Ur Amphetamines Screen (Etljbm=0327) ng/mL U Benzodiazepines Scrn (Xyqlhf=879) ng/mL Urine Cocaine Screen (Cutoff= 300) ng/mL U Marijuana (THC) Screen (Cutoff = 50) ng/mL Ethyl Alcohol < 10 (Less than 10) mg/dL Attestation Statement - Attestation Attestation: I examined this patient and my medical decision-making was reviewed with the SURGICAL SALES REPRESENTATIVE/PA/Advanced Practice Nurse/Resident Physician. I agree with the documented findings, disposition and treatment plan as described except to the extent set forth below. I did see the patient is spoke with him. He is resting comfortably in the cart. He is emotionally upset. Patient is actively suicidal. Evaluation in progress. [id number]
[2018-04-19 09:51] LABS: Bilirubin,Urine Negative (Negative); Blood,Urine Negative (Negative); Clarity,Urine Clear (Clear); Color,Urine Yellow (Yellow); Glucose,Urine (UA) >=1000 mg/dL (Normal); Ketones,Urine 40 mg/dL (Negative); Leukocyte Esterase,Urine Negative (Negative); Nitrite,Urine Negative (Negative); Protein,Urine Negative (Neg-Trace); Specific Gravity,Urine > 1.030 (1.010-1.025); Urobilinogen,Urine Normal (Normal)
[2018-04-19 09:56] LABS: Amphetamine Screen,Urine Positive ng/mL (Cutoff=1000); Barbiturate Screen,Urine Negative ng/mL (Cutoff=200); Benzodiazepines Screen,Urine Negative ng/mL (Cutoff=200); Cannabinoid Screen,Urine Negative ng/mL (Cutoff = 50); Cocaine Screen,Urine Negative ng/mL (Cutoff= 300); Opiate Screen,Urine Negative ng/mL (Cutoff=300); Phencyclidine Screen,Urine Negative ng/mL (Cutoff=25)
[2018-04-19 10:07] LABS: Ethanol < 10 mg/dL (Less than 10)
[2018-04-19 10:08] LABS: Acetaminophen < 10 mcg/mL (10-20); BUN/Creatinine Ratio 20 (6-26); Blood Urea Nitrogen 13 mg/dL (6-20); Calcium 9.1 mg/dL (8.6-10.3); Carbon Dioxide 23 mEq/L (23-29); Chloride 98 mEq/L (98-107); Glucose 385 mg/dL (70-105); Osmolality,Calculated 288 (280-300); Potassium 4.3 mEq/L (3.5-5.1); Salicylate < 2.5 mg/dL (15.0-30.0); Sodium 131 mEq/L (136-145); eGFR For African Americans > 60 (> 60); eGFR For Non-African Americans > 60 (> 60)
[2018-04-19] MEDS ORDERED: Ziprasidone 20 MG CAPSULE PO STA (12:10)
[2018-04-19] MEDS ORDERED: Mag Hydrox/Al Hydrox/Simeth 30 ML UDC PO PRN (13:20)
[2018-04-19] MEDS ORDERED: *HR* LORazepam 1 MG TABLET PO PRN (13:20)
[2018-04-19] MEDS ORDERED: traZODone 50 MG TABLET PO PRN (13:20)
[2018-04-19] MEDS ORDERED: *HR* LORazepam 2 MG/ML VIAL IM PRN (13:20)
[2018-04-19] MEDS ORDERED: hydrOXYzine pamoate 25 MG CAPSULE PO PRN (13:20)
[2018-04-19] MEDS ORDERED: Haloperidol Lactate 5 MG/ML VIAL IM PRN (13:20)
[2018-04-19] MEDS ORDERED: MOM Conc 10 ML UD.LIQ PO PRN (13:20)
[2018-04-19] MEDS ORDERED: Ibuprofen 400 MG TABLET PO PRN (13:20)
[2018-04-19] MEDS ORDERED: cloNIDine HCl 0.1 MG TABLET PO PRN (13:33)
[2018-04-19] MEDS ORDERED: Ondansetron ODT 4 MG TAB.RAPDIS SL PRN (13:33)
[2018-04-19] MEDS ORDERED: Dextrose Gel 15 GM/37.5 ML TUBE PO PRN ×2 (13:38)
[2018-04-19] MEDS ORDERED: Ziprasidone injection 20 MG/ML VIAL IM PRN (14:03)
[2018-04-19] MEDS: Gabapentin 400 MG CAPSULE PO SCH ×2 (15:47→21:17)
[2018-04-19] MEDS: Baclofen 10 MG TABLET PO SCH (15:47)
[2018-04-19] MEDS: Insulin LISPRO 300 UNITS/3 ML VIAL SQ SCH ×2 (18:38→22:49)
[2018-04-19] MEDS: Insulin NPH/REG 70/30 100 UNIT/ML (x5UNIT) SQ SCH (21:14)
[2018-04-20] MEDS: Baclofen 10 MG TABLET PO SCH ×4 (01:20→21:39)
[2018-04-20] MEDS: Insulin LISPRO 300 UNITS/3 ML VIAL SQ SCH ×4 (06:36→21:21)
[2018-04-20] MEDS: Gabapentin 400 MG CAPSULE PO SCH ×4 (09:34→20:09)
[2018-04-20] MEDS: Insulin NPH/REG 70/30 100 UNIT/ML (x5UNIT) SQ SCH ×2 (10:09→21:03)
--- NOTE | 2018-04-20 14:09 | Psychiatry History & Physical ---
Date of Encounter: 04/20/18 Time of Encounter: 13:30 History of Present Illness Patient Stated Chief Complaint: Leave me, get me back on my meds Medicare Admission Attestation: For traditional Medicare patients the provided hospital inpatient services are reasonable and necessary and in the case of services not specified as inpatient -only under 42 CFR 419.22 (n), that they are appropriately provided as inpatient services in accordance 42 CFR 412.3. For Critical Access Hospital the patient may reasonably be expected to be discharged or transferred to a hospital within 96 hours after admission to the Critical Access Hospital. Admitted From: Emergency Dept Plans for Post Hospital Care: Home History of Present Illness: Mr. Lemus is a 32 year old male The patient is known to me, his previous hospitalization in October. He did not wish to participate in the interview he did not wish to submit to a physical examination he requested to be placed back on his medicines and then stopped talking to me. He was lying in bed. Thus history and physical was conducted by observation and the patient's is not cooperative so his chart was reviewed Past Med Surg Social Fam HX - Past Medical History Source: old records reviewed Medical history: diabetes, hepatitis, seizures - Past Psychiatric History Psychiatric history: Reports: previous psychiatric hospitalization Family psychiatric history: Unknown Family History of Suicide: Unknown - Past Surgical History Surgical History: orthopedic, other - Social History Smoking Status: Current every day smoker Smokeless Tobacco Status: No Alcohol use: rarely Drug use: opiates, marijuana, methamphetamine, IV Drug Use Occupational status: unemployed Current living situation: Homeless Recent Out of Country Travel Within the Last 8 Weeks: No - Family History Father Family Member Ethnicity: Non- Living Status: Hx Family Cardiac Disorders: Yes (PR) Hx Family Endocrine Disorder: Yes (DM) Mother Family Member Ethnicity: Non- Living Status: Still Living Sister Family Member Ethnicity: Non- Living Status: Still Living Medications & Allergies Gabapentin [Neurontin] 800 mg PO TID #90 tablet 03/14/18 [Rx] Quetiapine Fumarate [Seroquel] 300 mg PO HS #30 tablet 03/14/18 [Rx] Venlafaxine XR (24 HR) [Effexor Xr] 150 mg PO DAILY 04/10/18 [History] Insulin Aspart Prot/Insuln Asp [Novolog Mix 70-30 Flexpen Syrn] 20 units SQ BID #1 insuln.pen 04/11/18 [Rx] Insulin LISPRO [HumaLOG] See Protocol SQ TIDAC #1 vial 04/11/18 [Rx] Phenytoin ER [Dilantin ER] 100 mg PO TID #90 capsule 04/11/18 [Rx] Sulfamethoxazole/Trimeth DS [Bactrim DS] 1 each PO BID 10 Days #20 tablet [Rx] 3 Allergy/AdvReac Type Severity Reaction Status Date / Time insulin glargine Allergy Blister Verified 04/19/18 08:57 [From Lantus] diphenhydramine AdvReac Intermediate See Verified 04/19/18 08:57 [From Benadryl] Comments Review of Systems Psychiatric: Reports: depression, abnormal sleep pattern, suicidal ideation Exam - HEENT Head exam IM: Present: atraumatic - Neurological Neurological exam: Present: alert - Constitutional Vitals: Temp Pulse Resp BP Pulse Ox 98.1 F 71 16 106/68 100 04/20/18 09:00 04/20/18 09:00 04/20/18 09:00 04/20/18 09:00 04/19/18 12:41 General appearance: malodorous, malnourished - Musculoskeletal Gait: normal Station: stooped Strength & Tone: normal for patient - Psychiatric Patient Orientation: Yes Person, Yes Time, Yes Place Level of alertness: Other Behavior: uncooperative Psychomotor activity: Slowed Eye Contact: Avoids Eye Contact Mood Description: Angry, Irritable Affect description: inappropriate to situation Speech Volume: No speech Speech pattern: non-verbal Language & Vocabulary: consistent with education Thought Content: Yes Suicidal ideation Attention Span Ability: Unable to Focus Patient Reliability: Not Reliable Historian Judgment: Poor Insight: None Results - Labs Labs: Laboratory Last Values WBC 6.4 K/mcL (4.3-11.1) 04/19/18 09:28 RBC 4.36 M/mcL (4.19-5.50) 04/19/18 09:28 Hgb 12.9 g/dL (12.9-16.9) 04/19/18 09:28 Hct 38.9 % (37.5-50.1) 04/19/18 09:28 MCV 89.2 fL (83.0-100.0) 04/19/18 09:28 MCH 29.6 pg (28.0-33.3) 04/19/18: MCHC 33.2 g/dL (31.6-35.5) 04/19/18 RDW 14.4 % (11.5-14.5) 04/19/18: Plt Count 313 K/mcL (140-400) 04/19/18 MPV 8.9 fL (9.4-12.4) L 04/19/18 Immature Gran % 0.5 % (0-4) 04/19/18: Seg Neutrophils % 69.8 % 04/19/18: Lymphocytes % 17.9 % 04/19/18 Monocytes % 7.6 % 04/19/18 Eosinophils % 3.4 % 04/19/18 Basophils % 0.8 % 04/19/18 Neutrophils # 4.5 K/mcL (1.6-8.9) 04/19/18 Lymphocytes # 1.2 K/mcL (0.6-4.6) 04/19/18 Monocytes # 0.5 K/mcL (0.0-1.3) 04/19/18 Eosinophils # 0.2 K/mcL (0.0-0.6) 04/19/18 Basophils # 0.1 K/mcL (0.0-0.2) 04/19/18 Sodium 131 mEq/L (136-145) L 04/19/18 Potassium 4.3 mEq/L (3.5-5.1) 04/19/18 Chloride 98 mEq/L (98-107) 04/19/18 Carbon Dioxide 23 mEq/L (23-29) 04/19/18 BUN 13 mg/dL (6-20) 04/19/18 Creatinine 0.64 mg/dL (0.70-1.30) L 04/19/18: Est GFR ( Amer) > 60 (> 60) 04/19/18 Est GFR (Non-Af Amer) > 60 (> 60) 04/19/18: BUN/Creatinine Ratio 20 (6-26) 04/19/18: Glucose 385 mg/dL (70-105) H 04/19/18 09: POC Glucose 233 mg/dL (70-99) H 04/20/18 12:12 Calculated Osmolality 288 (280-300) 04/19/18: Calcium 9.1 mg/dL (8.6-10.3) 04/19/18 09: Urine Color Yellow (Yellow) 04/19/18 09: Urine Clarity Clear (Clear) 04/19/18: Urine pH 6.0 pH Units (5.0-8.0) 04/19/18: Ur Specific [place] > 1.030 (1.010-1.025) H 04/19/18: Urine Protein Negative mg/dL (Neg-Trace) 04/19/18: Urine Glucose (UA) >=1000 mg/dL (Normal) H 04/19/18 09: Urine Ketones 40 mg/dL (Negative) H 04/19/18: Urine Blood Negative (Negative) 04/19/18: Urine Nitrite Negative (Negative) 04/19/18 09: Urine Bilirubin Negative (Negative) 04/19/18 09: Urine Urobilinogen Normal mg/dL (Normal) 04/19/18: Ur Leukocyte Esterase Negative (Negative) 04/19/18: Salicylates < 2.5 mg/dL (15.0-30.0) L 04/19/18 09:28 Urine Opiates Screen Negative ng/mL (Vwybzz=834) 04/19/18: Acetaminophen < 10 mcg/mL (10-20) L 04/19/18 09:28 Ur Barbiturates Screen Negative ng/mL (Xsukuq=774) 04/19/18 09:25 Ur Phencyclidine Scrn Negative ng/mL (Cutoff=25) 04/19/18 09:25 Ur Amphetamines Screen Positive ng/mL (Qhequc=2302) H 04/19/18 09:25 U Benzodiazepines Scrn Negative ng/mL (Owzlsj=003) 04/19/18 09:25 Urine Cocaine Screen Negative ng/mL (Cutoff= 300) 04/19/18 09: U Marijuana (THC) Screen Negative ng/mL (Cutoff = 50) 04/19/18 09:25 Ethyl Alcohol < 10 mg/dL (Less than 10) 04/19/18 09:28 Assessment and Plan (1) DKA, type 1 Current visit: No Status: Chronic Plan: Admit inpatient for safety and stabilization, Close observation, Encourage participation in unit milieu, Monitor appetite Risks, benefits, side effects, alternatives discussed w/pt: No Patient agreeable to treatment: No Plans for Post Hospital Care: Home Qualifiers: Diabetes mellitus complication detail: without coma Qualified Code(s): E10.10 - Type 1 diabetes mellitus with ketoacidosis without coma (2) Noncompliance with medications Current visit: No Status: Chronic Plan: Admit inpatient for safety and stabilization, Close observation, Group Therapy, Secure weapons Plans for Post Hospital Care: Home (3) IV drug abuse Current visit: No Status: Chronic Plan: Group Therapy, Monitor sleep Risks, benefits, side effects, alternatives discussed w/pt: No Patient agreeable to treatment: No Plans for Post Hospital Care: Home (4) Hepatitis C Current visit: No Status: Chronic Plan: Admit inpatient for safety and stabilization, Close observation, Monitor appetite Risks, benefits, side effects, alternatives discussed w/pt: No Patient agreeable to treatment: No Plans for Post Hospital Care: Home Qualifiers: Viral hepatitis chronicity: chronic Hepatic coma status: without hepatic coma Qualified Code(s): B18.2 - Chronic viral hepatitis C (5) Suicidal ideation Current visit: Yes Status: Acute Plan: Admit inpatient for safety and stabilization, Close observation, Suicide Precautions per unit protocol, Encourage participation in unit milieu, Secure weapons Risks, benefits, side effects, alternatives discussed w/pt: No Patient agreeable to treatment: No Plans for Post Hospital Care: Home (6) Major depressive disorder, recurrent severe without psychotic features Current visit: No Status: Acute Plan: Admit inpatient for safety and stabilization, Close observation, Suicide Precautions per unit protocol, Encourage participation in unit milieu, Monitor sleep, Monitor appetite, Secure weapons Plans for Post Hospital Care: Home Estimated Length of Stay (Days): 7 (7) Antisocial personality disorder Current visit: No Status: Chronic Plan: Admit inpatient for safety and stabilization, Group Therapy, Family/ Supportive other meeting Risks, benefits, side effects, alternatives discussed w/pt: No Patient agreeable to treatment: No Plans for Post Hospital Care: Home
[2018-04-21] MEDS: Insulin LISPRO 300 UNITS/3 ML VIAL SQ SCH ×4 (08:20→20:42)
[2018-04-21] MEDS: Venlafaxine XR (24 HR) 150 MG CAP.ER.24H PO SCH (08:21)
[2018-04-21] MEDS: Gabapentin 400 MG CAPSULE PO SCH ×4 (08:21→23:32)
[2018-04-21] MEDS: Insulin NPH/REG 70/30 100 UNIT/ML (x5UNIT) SQ SCH ×2 (09:11→20:43)
[2018-04-21] MEDS: Baclofen 10 MG TABLET PO SCH ×3 (09:12→23:32)
--- NOTE | 2018-04-21 16:40 | Psychiatry Progress Note ---
Date of Encounter: 04/21/18 Time of Encounter: 16:30 Subjective Interval history: The patient is a 32-year-old white male and he spoke to me briefly today. The patient has been noncompliant with some blood sugar checks and with some of his medicines. The patient has a history of DKA. He is homeless. He is identifying some grief due to loss of friend of his. The patient has hypertension. The patient asked to have his medicines restarted and I have done that. At this point I do not see if further adjustment medicines necessary the patient is interested in rehabilitation locally. His options are limited. While he does have a history of opiate dependence I am not starting Subutex or Suboxone because this may limit his opportunities for rehabilitation community area nonetheless the patient and I did discussed the goal of sobriety. He is willing to stay in the hospital until rehabilitation resources can be obtained Review of Systems Psychiatric: Reports: depression, abnormal sleep pattern, suicidal ideation, hopelessness, irritability Results - Vital Signs Vital Signs: Temp Pulse Resp BP Pulse Ox 98.2 F 90 16 115/78 100 04/20/18 21:00 04/20/18 21:00 04/20/18 21:00 04/20/18 21:00 04/19/18 12:41 - Labs Labs: Laboratory Results - last 24 hr 04/20/18 04/21/18 04/21/18 16:47 08:08 11:40 POC Glucose 498 H* 473 H* 433 H* 04/21/18 16:22 POC Glucose 379 H Assessment and Plan (1) DKA, type 1 Current visit: No Status: Chronic Plan: Continue hospitalization, Close observation, Monitor sleep, Monitor appetite Risks, benefits, side effects, alternatives discussed w/pt: No Patient agreeable to treatment: No Qualifiers: Diabetes mellitus complication detail: without coma Qualified Code(s): E10.10 - Type 1 diabetes mellitus with ketoacidosis without coma (2) Noncompliance with medications Current visit: No Status: Chronic Plan: Continue hospitalization, Group Therapy, Monitor sleep, Monitor appetite, Secure weapons Risks, benefits, side effects, alternatives discussed w/pt: Yes Patient agreeable to treatment: Yes (3) IV drug abuse Current visit: No Status: Chronic Plan: Continue hospitalization, Group Therapy, Monitor sleep Risks, benefits, side effects, alternatives discussed w/pt: No Patient agreeable to treatment: No (4) Hepatitis C Current visit: No Status: Chronic Plan: Monitor appetite Risks, benefits, side effects, alternatives discussed w /pt: No Patient agreeable to treatment: No Qualifiers: Viral hepatitis chronicity: chronic Hepatic coma status: without hepatic coma Qualified Code(s): B18.2 - Chronic viral hepatitis C (5) Suicidal ideation Current visit: Yes Status: Acute Plan: Continue hospitalization, Monitor sleep Risks, benefits, side effects, alternatives discussed w/pt: No Patient agreeable to treatment: No (6) Major depressive disorder, recurrent severe without psychotic features Current visit: No Status: Acute Plan: Continue hospitalization, Suicide Precautions per unit protocol, Encourage participation in unit milieu, Secure weapons Risks, benefits, side effects, alternatives discussed w/pt: Yes Patient agreeable to treatment: Yes (7) Antisocial personality disorder Current visit: No Status: Chronic Plan: Encourage participation in unit milieu, Group Therapy Risks, benefits, side effects, alternatives discussed w/pt: No Patient agreeable to treatment: No Consult Discharge Plan - Plan Referrals: NONE,PCP [Primary Care Provider] - Psychiatry Exam - Constitutional Vitals: Temp Pulse Resp BP Pulse Ox 98.2 F 90 16 115/78 100 04/20/18 21:00 04/20/18 21:00 04/20/18 21:00 04/20/18 21:00 04/19/18 12:41 General appearance: unkempt, disheveled, malodorous - Musculoskeletal Gait: slow Strength & Tone: normal for patient - Psychiatric Patient Orientation: Yes Person, Yes Time, Yes Place Level of alertness: Alert Behavior: suspicious, withdrawn Psychomotor activity: Slowed Eye Contact: Avoids Eye Contact Mood Description: Irritable Affect description: dysphoric, incongruent with mood Speech Volume: Normal Speech pattern: impoverished Language & Vocabulary: consistent with education Thought Process: Intact Thought Content: Yes Suicidal ideation Perceptual Disturbances: No Auditory hallucinations, No Visual hallucinations Attention Span Ability: Unable to Sustain Attention Patient Reliability: Questionable Historian Intelligence Estimate: Average Judgment: Limited Insight: Minimal
[2018-04-22] MEDS: Insulin NPH/REG 70/30 100 UNIT/ML (x5UNIT) SQ SCH (08:13)
[2018-04-22] MEDS: Insulin LISPRO 300 UNITS/3 ML VIAL SQ SCH ×2 (08:14→11:36)
[2018-04-22] MEDS: Venlafaxine XR (24 HR) 150 MG CAP.ER.24H PO SCH (08:15)
[2018-04-22] MEDS: Gabapentin 400 MG CAPSULE PO SCH ×2 (08:15→13:57)
[2018-04-22 09:12] VITALS: BP 121/85
[2018-04-22] MEDS: Baclofen 10 MG TABLET PO SCH ×2 (09:15→14:02)
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
== END 2018-04-22 14:35 | disposition other institution (70) | DRG 751 ==
LOC: EMEROO 08:39 → 1ANU 12:55
PROVIDERS: ADMIT Psychiatry & Neurology Forensic Psychiatry; ATTEND Psychiatry & Neurology Forensic Psychiatry

== ENCOUNTER 2018-04-22 12:21 | Inpatient (IN) ==
--- NOTE | 2018-04-22 12:52 | Internal Med History&Physical ---
Date of Encounter: 04/22/18 Time of Encounter: 12:41 Internal Medicine - H&P: HPI Chief complaint: hyperglycemia Admitted From: Home Plans for Post Hospital Care: Transfer Inp Rehab Fac History of present illness: Mr. Lemus is a 32 year old male who has history of suicidal depression, substance abuse, type type 1 diabetes, diabetic neuropathy, admitted to the inpatient psychiatry unit from April 17 for suicidal and depression. He also has type 1 diabetes on insulin at home. Patient blood glucose has been running about 400-500 due to his noncompliance to insulin therapy. Today psychiatrist cleared him for medical treatment, Dr Ortiz requested to transfor the patient to medical floor for better diabetes control. I discussed with psychiatrist, Dr Ortiz and she said the patient has capacity to make his own decision. he denies any suicide, no need for suicidal precaution. the plan is to discharge him to the inpatient substance rehabilitation facility on Tuesday. I saw the patient in psychiatric unit, he is alert oriented 3 he said he has type 1 diabetes since age of 27, he has been taking NPH 70/30, 20 units twice a day, and this insulin conservative sliding scale at home. Normally his sugar is well controlled, due to noncompliance and he has multiple DKA admissions. Patient agrees to have medical treatment to agree to comply needlestick and the insulin regimen. Past Med Surg Social Fam HX - Past Medical History Medical history: diabetes, hepatitis, seizures Psychiatric history: previous psychiatric hospitalization - Past Surgical History Surgical History: orthopedic, other - Social History Smoking Status: Current every day smoker Smokeless Tobacco Status: No Alcohol use: rarely Drug use: opiates, marijuana, methamphetamine, IV Drug Use - Family History Father Family Member Ethnicity: Non- Living Status: Hx Family Cardiac Disorders: Yes (MS) Hx Family Endocrine Disorder: Yes (DM) Mother Family Member Ethnicity: Non- Living Status: Still Living Sister Family Member Ethnicity: Non- Living Status: Still Living Internal Medicine - H&P: Meds Gabapentin [Neurontin] 800 mg PO TID #90 tablet 03/14/18 [Rx] Quetiapine Fumarate [Seroquel] 300 mg PO HS #30 tablet 03/14/18 [Rx] Venlafaxine XR (24 HR) [Effexor Xr] 150 mg PO DAILY 04/10/18 [History] Insulin Aspart Prot/Insuln Asp [Novolog Mix 70-30 Flexpen Syrn] 20 units SQ BID #1 insuln.pen 04/11/18 [Rx] Insulin LISPRO [HumaLOG] See Protocol SQ TIDAC #1 vial 04/11/18 [Rx] Phenytoin ER [Dilantin ER] 100 mg PO TID #90 capsule 04/11/18 [Rx] Sulfamethoxazole/Trimeth DS [Bactrim DS] 1 each PO BID 10 Days #20 tablet [Rx] 3 Allergy/AdvReac Type Severity Reaction Status Date / Time insulin glargine Allergy Blister Verified 04/19/18 08:57 [From Lantus] diphenhydramine AdvReac Intermediate See Verified 04/19/18 08:57 [From Benadryl] Comments All Systems PM: A 10-system review of systems was performed and is negative for pertinent findings except as documented above in the HPI. - Constitutional General appearance: Present: A&O X 3, pleasant, answers questions appropriately Exam: CONSTITUTIONAL: Patient appears as an age appropriate male well developed, in no acute distress. EYES Clear sclerae, bilateral pupils are equal, reactive to light and accommodation. Extraocular movements are intact RESPIRATORY: No accessory muscle use, bilateral clear to auscultation, no wheezing, no crackles/rales. CARDIOVASCULAR: Regular heart rate, normal S1 and S2, no murmurs GASTROINTESTINAL: bowel sounds present, soft, no tenderness. No hepatosplenomegaly. No bilateral CVA tenderness MUSCULOSKELETAL: Joints in normal range of motion, no clubbing, no edema, no cyanosis. Bilateral peripheral pulses 2+ LYMPHATIC no lymphadenopathy in neck, groin and axilla bilaterally, no thyromegaly. NEUROLOGIC: CN II to XII are grossly intact, no focal neurological deficit. Deep tendon reflexes 2+ bilaterally. Normal light touch sensation to upper and lower extremity PSYCHIATRIC: Oriented x3, with good insight, mood is euthymic. No hallucinations or delusions. SKIN: Skin warm and dry, no rashes, no open wound. - Attending Attestation Assessment and plan #1 type 1 diabetes with hyperglycemia due to noncompliance, we will continue home regimen he NPH 20 units twice a day, conservatively with sliding scale diabetes diet. Check A1c #2 possible dehydration, we will give IV fluids follow up electrolytes #3. Suicidal depression, resolved a psychiatrist cleared to him for discharge to inpatient rehabilitation #4. Substance abuse, consult to social work, Tuesday discharge to inpatient rehab #4. diabetic neuropathy - Time Spent With Patient Total time spent is greater than 50% in coordination of care (as documented) at patient's floor/unit and/or counseling patient: Greater than 35 minutes
[2018-04-22] MEDS ORDERED: *HR* Dextrose 50 % in Water (Syg) 50 ML SYRINGE IVP PRN (13:04)
[2018-04-22] MEDS ORDERED: Dextrose Gel 15 GM/37.5 ML TUBE PO PRN ×2 (13:04)
[2018-04-22] MEDS ORDERED: D5% in Water 1,000 ML IVC PRN (13:04)
[2018-04-22] MEDS ORDERED: Naloxone 0.4 MG/ML INJ IVP PRN (13:06)
[2018-04-22] MEDS: Insulin LISPRO 300 UNITS/3 ML VIAL SQ SCH ×2 (16:35→16:44)
[2018-04-22] MEDS: Gabapentin 400 MG CAPSULE PO SCH ×2 (16:44→21:01)
[2018-04-22] MEDS ORDERED: Insulin LISPRO 300 UNITS/3 ML VIAL SQ ONE (17:30)
[2018-04-22 19:53] LABS: Hematocrit 37.6 % (37.5-50.1); Hemoglobin 12.8 g/dL (12.9-16.9); Mean Corpuscular Hemoglobin 29.5 pg (28.0-33.3); Mean Corpuscular Volume 86.6 fL (83.0-100.0); Mean Platelet Volume 9.1 fL (9.4-12.4); Platelet Count 338 K/mcL (140-400); Red Blood Count 4.34 M/mcL (4.19-5.50); Red Cell Distribution Width 14.2 % (11.5-14.5)
[2018-04-22 20:13] LABS: BUN/Creatinine Ratio 32 (6-26); Blood Urea Nitrogen 23 mg/dL (6-20); Carbon Dioxide 27 mEq/L (23-29); Chloride 96 mEq/L (98-107); Glucose 388 mg/dL (70-105); Osmolality,Calculated 292 (280-300); Potassium 4.4 mEq/L (3.5-5.1); Sodium 131 mEq/L (136-145); eGFR For African Americans > 60 (> 60); eGFR For Non-African Americans > 60 (> 60)
[2018-04-22] MEDS: Insulin NPH/REG 70/30 100 UNIT/ML (x5UNIT) SQ SCH (21:01)
[2018-04-22] MEDS: Ringers Solution, Lactated 1,000 ML IVC SCH (23:27)
[2018-04-23] MEDS ORDERED: Insulin NPH/REG 70/30 100 UNIT/ML (x5UNIT) SQ ONE
[2018-04-23] MEDS: Gabapentin 400 MG CAPSULE PO SCH ×3 (08:14→20:27)
[2018-04-23] MEDS: Venlafaxine XR (24 HR) 150 MG CAP.ER.24H PO SCH (08:14)
[2018-04-23] MEDS: Insulin LISPRO 300 UNITS/3 ML VIAL SQ SCH ×4 (08:15→20:28)
[2018-04-23] MEDS: Insulin NPH/REG 70/30 100 UNIT/ML (x5UNIT) SQ SCH ×2 (14:12→20:28)
[2018-04-23] MEDS ORDERED: Ringers Solution, Lactated 500 ML IVC ONE (15:06)
--- NOTE | 2018-04-23 15:06 | Internal Med Progress Note ---
Date of Encounter: 04/23/18 Time of Encounter: 15:06 - Assessment and plan (1) Hyperglycemia Current Visit: No Status: Acute Assessment and plan: Secondary to non-compliance. - Resume home medication - Continue ISS Glucose during day time runs high, will change ISS AC to medium dose Glucose in night time/early AM runs very low, will keep HS ISS to low dose. - IV fluids as needed - Education of importance of medication compliance (2) Hyponatremia Current Visit: No Status: Acute Assessment and plan: Not true hyponatremia Pseudohyponatremia from elevate glucose. Should appear corrected on BMP if glucose levels better. (3) Major depressive disorder, recurrent severe without psychotic features Current Visit: No Status: Acute (4) Uncontrolled diabetes mellitus Current Visit: No Status: Acute Assessment and plan: Plan as above Qualifiers: Diabetes mellitus type: type 1 Diabetes mellitus complication status: without complication Qualified Code(s): E10.65 - Type 1 diabetes mellitus with hyperglycemia (5) Bipolar 1 disorder, depressed Current Visit: No Status: Chronic Assessment and plan: Continue Home medications (6) Hepatitis C Current Visit: No Status: Chronic Qualifiers: Viral hepatitis chronicity: chronic Hepatic coma status: without hepatic coma Qualified Code(s): B18.2 - Chronic viral hepatitis C (7) History of seizures Current Visit: No Status: Chronic Assessment and plan: Continue home medications (8) Noncompliance with medications Current Visit: No Status: Resolved - Time Spent With Patient Total time spent is greater than 50% in coordination of care (as documented) at patient's floor/unit and/or counseling patient: - Subjective Interval history: Patient has no complaints, no acute events. Glucose elevated in afternoon but lower limits on morning time. - Constitutional Vitals: Temp Pulse Resp BP Pulse Ox 98.4 F 81 16 151/92 97 04/23/18 14:52 04/23/18 14:52 04/23/18 14:52 04/23/18 14:52 04/23/18 14:52 General appearance: Present: A&O X 3, pleasant, answers questions appropriately - Head Head exam: Present: atraumatic, normocephalic - Eye Eye exam: Present: PERRL, conjuntiva pink, sclera anicteric Pupils: Present: PERRL - Neck Neck exam general surgery: Present: supple, trachea midline. Absent: lymphadenopathy - Respiratory Respiratory exam: Present: CTAB. Absent: accessory muscle use, rales, rhonchi, wheezes - Cardiovascular Cardiovascular exam: Present: RRR, +S1, +S2. Absent: diastolic murmur, gallop, rubs, systolic murmur - GI/Abdominal GI/Abdominal exam: Present: normal bowel sounds, soft, no peritoneal signs. Absent: distended, tenderness - Extremities Exam Extremities exam: Present: warm, radial pulses palpable and symmetrical. Absent : calf tenderness, cyanotic, pedal edema - Neurological Exam Neurological exam: Present: CN II-XII intact, oriented X3, no focal deficits. Absent: pronater drift, facial droop, speech deficit - Skin Skin exam: Present: dry, intact Internal Medicine: Result - Labs CBC & Chem 7: 04/22/18 19:16 04/22/18 19:16 Labs: Short CBC 04/22/18 Range/Units 19:16 WBC 9.7 D (4.3-11.1) K/mcL Hgb 12.8 L (12.9-16.9) g/dL Hct 37.6 (37.5-50.1) % Plt Count 338 (140-400) K/mcL BMP 04/22/18 19:16 Sodium 131 L Potassium 4.4 Chloride 96 L Carbon Dioxide 27 BUN 23 H Creatinine 0.73 Glucose 388 H Calcium 9.0 Consult Discharge Plan - Plan Referrals: NONE,PCP [Primary Care Provider] -
[2018-04-23 15:52] LABS: Basophils % 0.4 %; Eosinophils # 0.1 K/mcL (0.0-0.6); Eosinophils % 1.2 %; Hematocrit 37.5 % (37.5-50.1); Hemoglobin 12.8 g/dL (12.9-16.9); Lymphocytes # 2.3 K/mcL (0.6-4.6); Lymphocytes % 31.8 %; Mean Corpuscular HGB Conc 34.1 g/dL (31.6-35.5); Mean Platelet Volume 9.4 fL (9.4-12.4); Monocytes # 0.6 K/mcL (0.0-1.3); Neutrophils # 4.2 K/mcL (1.6-8.9); Platelet Count 291 K/mcL (140-400); Red Blood Count 4.26 M/mcL (4.19-5.50); Red Cell Distribution Width 14.4 % (11.5-14.5); Segmented Neutrophils % 57.6 %
[2018-04-23 16:11] LABS: BUN/Creatinine Ratio 27 (6-26); Blood Urea Nitrogen 21 mg/dL (6-20); Calcium 8.9 mg/dL (8.6-10.3); Carbon Dioxide 26 mEq/L (23-29); Chloride 96 mEq/L (98-107); Glucose 342 mg/dL (70-105); Osmolality,Calculated 285 (280-300); Potassium 4.8 mEq/L (3.5-5.1); Sodium 129 mEq/L (136-145); eGFR For African Americans > 60 (> 60); eGFR For Non-African Americans > 60 (> 60)
[2018-04-23] MEDS ORDERED: Ringers Solution, Lactated 1,000 ML ONE (18:23)
[2018-04-23] MEDS: Ringers Solution, Lactated 1,000 ML IVC SCH (18:25)
[2018-04-23] MEDS ORDERED: Insulin LISPRO 300 UNITS/3 ML VIAL SQ SCH (21:00)
[2018-04-24 06:57] LABS: Basophils % 0.6 %; Eosinophils # 0.1 K/mcL (0.0-0.6); Eosinophils % 1.8 %; Hematocrit 39.1 % (37.5-50.1); Hemoglobin 13.2 g/dL (12.9-16.9); Immature Granulocytes % 1.1 % (0-4); Lymphocytes # 1.8 K/mcL (0.6-4.6); Lymphocytes % 28.4 %; Mean Corpuscular HGB Conc 33.8 g/dL (31.6-35.5); Mean Corpuscular Hemoglobin 29.7 pg (28.0-33.3); Mean Corpuscular Volume 87.9 fL (83.0-100.0); Mean Platelet Volume 9.4 fL (9.4-12.4); Monocytes # 0.4 K/mcL (0.0-1.3); Monocytes % 6.1 %; Neutrophils # 3.9 K/mcL (1.6-8.9); Platelet Count 263 K/mcL (140-400); Red Blood Count 4.45 M/mcL (4.19-5.50); Red Cell Distribution Width 14.1 % (11.5-14.5)
[2018-04-24 07:21] LABS: BUN/Creatinine Ratio 34 (6-26); Blood Urea Nitrogen 26 mg/dL (6-20); Calcium 9.1 mg/dL (8.6-10.3); Carbon Dioxide 26 mEq/L (23-29); Chloride 91 mEq/L (98-107); Glucose 790 mg/dL (70-105); Osmolality,Calculated 301 (280-300); Sodium 124 mEq/L (136-145); eGFR For African Americans > 60 (> 60); eGFR For Non-African Americans > 60 (> 60)
[2018-04-24] MEDS: Insulin LISPRO 300 UNITS/3 ML VIAL SQ SCH ×4 (07:30→20:19)
[2018-04-24] MEDS ORDERED: Ringers Solution, Lactated 1,000 ML IVC ONE (07:56)
[2018-04-24] MEDS ORDERED: Insulin Regular, Human 100 UNIT/ML SQ ONE ×2 (07:56→08:15)
[2018-04-24] MEDS: Gabapentin 400 MG CAPSULE PO SCH ×3 (07:57→20:19)
[2018-04-24] MEDS: Venlafaxine XR (24 HR) 150 MG CAP.ER.24H PO SCH (07:57)
[2018-04-24 08:06] LABS: Potassium 5.8 mEq/L (3.5-5.1)
[2018-04-24] MEDS: Insulin NPH/REG 70/30 100 UNIT/ML (x5UNIT) SQ SCH ×2 (10:28→20:20)
--- NOTE | 2018-04-24 14:05 | Internal Med Progress Note ---
Date of Encounter: 04/24/18 Time of Encounter: 14:04 - Assessment and plan (1) Hyperglycemia Current Visit: No Status: Acute Assessment and plan: Secondary to non-compliance. - Continue home medication NPH - Continue ISS - IV fluids as needed - Regular insulin as needed Dispo: pending acceptance due to holiday weekend. (2) Hyponatremia Current Visit: No Status: Acute Assessment and plan: Not true hyponatremia Pseudohyponatremia from elevate glucose. Should appear corrected on BMP if glucose levels better. (3) Major depressive disorder, recurrent severe without psychotic features Current Visit: No Status: Acute (4) Uncontrolled diabetes mellitus Current Visit: No Status: Acute Assessment and plan: Plan as above Qualifiers: Diabetes mellitus type: type 1 Diabetes mellitus complication status: without complication Qualified Code(s): E10.65 - Type 1 diabetes mellitus with hyperglycemia (5) Bipolar 1 disorder, depressed Current Visit: No Status: Chronic Assessment and plan: Continue Home medications (6) Hepatitis C Current Visit: No Status: Chronic Qualifiers: Viral hepatitis chronicity: chronic Hepatic coma status: without hepatic coma Qualified Code(s): B18.2 - Chronic viral hepatitis C (7) History of seizures Current Visit: No Status: Chronic Assessment and plan: Continue home medications (8) Noncompliance with medications Current Visit: No Status: Resolved - Time Spent With Patient Total time spent is greater than 50% in coordination of care (as documented) at patient's floor/unit and/or counseling patient: - Subjective Interval history: Patient has no complaints. Glucose was severely elevated at 790 requiring additional 12 units regular insulin, brought glucose down to 300s. - Constitutional Vitals: Temp Pulse Resp BP Pulse Ox 98.1 F 95 16 121/80 96 04/24/18 10:23 04/24/18 10:23 04/24/18 10:23 04/24/18 10:23 04/24/18 10:23 General appearance: Present: A&O X 3, pleasant, answers questions appropriately - Head Head exam: Present: atraumatic, normocephalic - Eye Eye exam: Present: PERRL, conjuntiva pink, sclera anicteric Pupils: Present: PERRL - Neck Neck exam general surgery: Present: supple, trachea midline. Absent: lymphadenopathy - Respiratory Respiratory exam: Present: CTAB. Absent: accessory muscle use, rales, rhonchi, wheezes - Cardiovascular Cardiovascular exam: Present: RRR, +S1, +S2. Absent: diastolic murmur, gallop, rubs, systolic murmur - GI/Abdominal GI/Abdominal exam: Present: normal bowel sounds, soft, no peritoneal signs. Absent: distended, tenderness - Extremities Exam Extremities exam: Present: warm, radial pulses palpable and symmetrical. Absent : calf tenderness, cyanotic, pedal edema - Neurological Exam Neurological exam: Present: CN II-XII intact, oriented X3, no focal deficits. Absent: pronater drift, facial droop, speech deficit - Skin Skin exam: Present: dry, intact Internal Medicine: Result - Labs CBC & Chem 7: 04/24/18 06:40 04/24/18 06:40 Labs: Short CBC 04/23/18 04/24/18 Range/Units 15:28 06:40 WBC 7.3 6.2 (4.3-11.1) K/mcL Hgb 12.8 L 13.2 (12.9-16.9) g/dL Hct 37.5 39.1 (37.5-50.1) % Plt Count 291 263 (140-400) K/mcL Neutrophils # 4.2 3.9 (1.6-8.9) K/mcL BMP 04/23/18 04/24/18 15:28 06:40 Sodium 129 L 124 L Potassium 4.8 5.8 H Chloride 96 L 91 L Carbon Dioxide 26 26 BUN 21 H 26 H Creatinine 0.77 0.77 Glucose 342 H 790 H* Calcium 8.9 9.1 Consult Discharge Plan - Plan Referrals: NONE,PCP [Primary Care Provider] -
[2018-04-24 18:08] LABS: BUN/Creatinine Ratio 33 (6-26); Blood Urea Nitrogen 28 mg/dL (6-20); Calcium 8.9 mg/dL (8.6-10.3); Carbon Dioxide 27 mEq/L (23-29); Chloride 92 mEq/L (98-107); Glucose 381 mg/dL (70-105); Osmolality,Calculated 285 (280-300); Potassium 4.6 mEq/L (3.5-5.1); Sodium 127 mEq/L (136-145); eGFR For African Americans > 60 (> 60); eGFR For Non-African Americans > 60 (> 60)
[2018-04-25 06:28] LABS: Basophils # 0.1 K/mcL (0.0-0.2); Basophils % 0.6 %; Eosinophils # 0.2 K/mcL (0.0-0.6); Eosinophils % 2.6 %; Hematocrit 39.3 % (37.5-50.1); Immature Granulocytes % 1.2 % (0-4); Lymphocytes # 2.3 K/mcL (0.6-4.6); Lymphocytes % 28.5 %; Mean Corpuscular HGB Conc 33.1 g/dL (31.6-35.5); Mean Corpuscular Hemoglobin 29.2 pg (28.0-33.3); Mean Corpuscular Volume 88.3 fL (83.0-100.0); Monocytes # 0.5 K/mcL (0.0-1.3); Monocytes % 5.7 %; Platelet Count 295 K/mcL (140-400); Red Blood Count 4.45 M/mcL (4.19-5.50); Red Cell Distribution Width 14.6 % (11.5-14.5); Segmented Neutrophils % 61.4 %
[2018-04-25 07:03] LABS: BUN/Creatinine Ratio 40 (6-26); Blood Urea Nitrogen 28 mg/dL (6-20); Carbon Dioxide 25 mEq/L (23-29); Chloride 95 mEq/L (98-107); Glucose 471 mg/dL (70-105); Osmolality,Calculated 292 (280-300); Sodium 128 mEq/L (136-145); eGFR For African Americans > 60 (> 60); eGFR For Non-African Americans > 60 (> 60)
[2018-04-25] MEDS: Gabapentin 400 MG CAPSULE PO SCH ×2 (07:42→14:04)
[2018-04-25] MEDS: Venlafaxine XR (24 HR) 150 MG CAP.ER.24H PO SCH (07:42)
[2018-04-25] MEDS: Insulin NPH/REG 70/30 100 UNIT/ML (x5UNIT) SQ SCH (07:43)
[2018-04-25] MEDS: Insulin LISPRO 300 UNITS/3 ML VIAL SQ SCH ×2 (08:04→11:57)
[2018-04-25] MEDS ORDERED: Insulin NPH/REG 70/30 100 UNIT/ML (x5UNIT) SQ SCH ×3 (08:22→21:00)
[2018-04-25] MEDS ORDERED: Insulin NPH/REG 70/30 100 UNIT/ML (x5UNIT) SQ STA (08:29)
[2018-04-25 08:56] LABS: Estimated Average Glucose 286 mg/dl; Hemoglobin A1C 11.6 %
[2018-04-25 14:44] VITALS: BP 127/78
[2018-04-25] MEDS ORDERED: Ibuprofen 600 MG TABLET PO PRN (15:03)
--- NOTE | 2018-04-25 15:53 | Discharge Summary ---
Date of Encounter: 04/25/18 Time of Encounter: 10:00 - Discharge Diagnosis (1) Noncompliance with medications Priority: Primary Status: Resolved Assessment and Plan: Glyceminc control improved. NPH increased to 30 units SubQbid (2) Hepatitis C Priority: Secondary Status: Chronic Assessment and Plan: chronic, follow up with PCP Qualifiers: Viral hepatitis chronicity: chronic Hepatic coma status: without hepatic coma Qualified Code(s): B18.2 - Chronic viral hepatitis C (3) History of seizures Priority: Secondary Status: Chronic Assessment and Plan: Continue home medications (4) Hyperglycemia Priority: Primary Status: Acute Assessment and Plan: Secondary to non-compliance. - Continue home medication NPH - Continue ISS - IV fluids as needed - Regular insulin as needed Dispo: pending acceptance due to holiday weekend. See above for new med doses (5) Bipolar 1 disorder, depressed Priority: Secondary Status: Chronic Assessment and Plan: Continue Home medications (6) Major depressive disorder, recurrent severe without psychotic features Priority: Secondary Status: Acute (7) Hyponatremia Priority: Secondary Status: Acute Assessment and Plan: Not true hyponatremia Pseudohyponatremia from elevate glucose. Should appear corrected on BMP if glucose levels better. (8) Uncontrolled diabetes mellitus Priority: Secondary Status: Acute Qualifiers: Diabetes mellitus type: type 1 Diabetes mellitus complication status: without complication Qualified Code(s): E10.65 - Type 1 diabetes mellitus with hyperglycemia Hospital course: Mr. Lemus is a 32 year old male who has history of suicidal depression, substance abuse, type type 1 diabetes, diabetic neuropathy, admitted to the inpatient psychiatry unit from April 17 for suicidal and depression. He also has type 1 diabetes on insulin at home. Patient blood glucose has been running about 400-500 due to his noncompliance to insulin therapy. Today psychiatrist cleared him for medical treatment, Dr Ortiz requested to transfor the patient to medical floor for better diabetes control. I discussed with psychiatrist, Dr Ortiz and she said the patient has capacity to make his own decision. he denies any suicide, no need for suicidal precaution. the plan is to discharge him to the inpatient substance rehabilitation facility on Tuesday. I saw the patient in psychiatric unit, he is alert oriented 3 he said he has type 1 diabetes since age of 27, he has been taking NPH 70/30, 20 units twice a day, and this insulin conservative sliding scale at home. Normally his sugar is well controlled, due to noncompliance and he has multiple DKA admissions. Patient agrees to have medical treatment to agree to comply needlestick and the insulin regimen. 04/25: Pt improved. Blood sugars remained elevated. NPH was increased to 32 units subcutaneous twice a day. Patient was insisting on leaving "no matter what". Patient was tolerating a diet and deemed stable for discharge. We discussed the importance of compliance with his blood sugars. His A1c came back at 11.6 which is consistent with his noncompliance. He did not show any signs of DKA. To arrange for placement for patient refused. Discharge discussed with: patient - Time Spent with Patient Total time spent providing and/or coordinating discharge services: Less than 30 minutes - Discharge Medications Home Medications: Gabapentin [Neurontin] 800 mg PO TID #90 tablet 03/14/18 [Rx] Quetiapine Fumarate [Seroquel] 300 mg PO HS #30 tablet 03/14/18 [Rx] Venlafaxine XR (24 HR) [Effexor Xr] 150 mg PO DAILY 04/10/18 [History] Insulin Aspart Prot/Insuln Asp [Novolog Mix 70-30 Flexpen Syrn] 20 units SQ BID #1 insuln.pen 04/11/18 [Rx] Insulin LISPRO [HumaLOG] See Protocol SQ TIDAC #1 vial 04/11/18 [Rx] Phenytoin ER [Dilantin ER] 100 mg PO TID #90 capsule 04/11/18 [Rx] Sulfamethoxazole/Trimeth DS [Bactrim DS] 1 each PO BID 10 Days #20 tablet [Rx] Allergies/Adverse Reactions: 3 Allergy/AdvReac Type Severity Reaction Status Date / Time insulin glargine Allergy Blister Verified 04/19/18 08:57 [From Lantus] diphenhydramine AdvReac Intermediate See Verified 04/19/18 08:57 [From Benadryl] Comments Date of admission: 04/24/18 14:06 Primary care physician: PCP NONE Consults: 04/22/18 13:08 Consult to Line Manager [CONS] Routine Reason for SW Consult: inpatient rehab Discharging clinician: Zac Gillespie Anticipated date of discharge: 04/25/18 - Constitutional Vitals: Temp Pulse Resp BP Pulse Ox 98.1 F 99 15 127/78 98 04/25/18 14:43 04/25/18 14:43 04/25/18 14:43 04/25/18 14:43 04/25/18 14:43 General appearance: Present: A&O X 3, pleasant, answers questions appropriately - Head Head exam: Present: atraumatic, normocephalic - Eye Eye exam: Present: PERRL, conjuntiva pink, sclera anicteric Pupils: Present: PERRL - Respiratory Respiratory exam: Present: CTAB. Absent: accessory muscle use, rales, rhonchi, wheezes - Cardiovascular Cardiovascular exam: Present: RRR, +S1, +S2. Absent: diastolic murmur, gallop, rubs, systolic murmur - GI/Abdominal GI/Abdominal exam: Present: normal bowel sounds, soft, no peritoneal signs. Absent: distended, tenderness - Neurological Exam Neurological exam: Present: CN II-XII intact, oriented X3, no focal deficits. Absent: pronater drift, facial droop, speech deficit - Skin Skin exam: Present: dry, intact - Patient Status Disposition: Home, Self-Care Condition: Good Functional capacity at discharge: independent ambulation Overall status at discharge: patient is back to baseline - Discharge Instructions Follow Up With: Cristobal Neil DO [Resident] - 05/04/18 10:15 am (Please arrive 15 minutes prior to your appointment.) NONE,PCP [Primary Care Provider] - Additional Instructions: Follow up with your doctor in one week Monitor blood sugars as directed. - Diet and Activity Activity: resume usual activities as tolerated Diet: advance to your usual diet, diabetic diet
== END 2018-04-25 16:48 | disposition home or self-care (01) | DRG 420 ==
LOC: 3ANU
PROVIDERS: ADMIT Hospitalist; ATTEND Hospitalist

== ENCOUNTER 2018-05-13 05:06 | Observation (INO) ==
[2018-05-13] MEDS: 0.9 % Sodium Chloride 1,000 ML IVC SCH ×6 (05:58→14:48)
[2018-05-13 06:05] LABS: Basophils % 0.3 %; Eosinophils % 0.2 %; Hematocrit 36.5 % (37.5-50.1); Immature Granulocytes % 0.3 % (0-4); Lymphocytes # 1.5 K/mcL (0.6-4.6); Lymphocytes % 16.1 %; Mean Corpuscular HGB Conc 32.9 g/dL (31.6-35.5); Mean Corpuscular Hemoglobin 28.5 pg (28.0-33.3); Mean Corpuscular Volume 86.7 fL (83.0-100.0); Mean Platelet Volume 9.6 fL (9.4-12.4); Monocytes # 0.6 K/mcL (0.0-1.3); Platelet Count 270 K/mcL (140-400); Red Blood Count 4.21 M/mcL (4.19-5.50); Red Cell Distribution Width 13.9 % (11.5-14.5); Segmented Neutrophils % 76.1 %
[2018-05-13 06:06] LABS: VBG HCO3 23 mEq/L (21-27); VBG PCO2 39 mmHg (41-51); VBG PH 7.38 pH Units (7.32-7.42); VBG PO2 44 mmHg (25-50)
[2018-05-13 06:08] LABS: Bilirubin,Urine Negative (Negative); Blood,Urine Negative (Negative); Clarity,Urine Clear (Clear); Color,Urine Yellow (Yellow); Glucose,Urine (UA) >=1000 mg/dL (Normal); Ketones,Urine 40 mg/dL (Negative); Leukocyte Esterase,Urine Negative (Negative); Nitrite,Urine Negative (Negative); PH,Urine 6.5 pH Units (5.0-8.0); Protein,Urine Negative (Neg-Trace); Specific Gravity,Urine 1.028 (1.010-1.025); Urobilinogen,Urine Normal (Normal)
[2018-05-13] MEDS ORDERED: diazePAM 10 MG/2 ML SYRINGE IVP STA (06:16)
[2018-05-13 06:27] LABS: Alanine Aminotransferase 62 Units/L (7-52); Albumin 4.4 g/dL (3.5-5.7); Albumin/Globulin Ratio 1.5 (1.1-2.2); Alkaline Phosphatase 116 Units/L (34-104); Aspartate Amino Transferase 76 Units/L (13-39); BUN/Creatinine Ratio 35 (6-26); Bilirubin,Total 0.6 mg/dL (0.3-1.0); Blood Urea Nitrogen 32 mg/dL (6-20); Calcium 9.2 mg/dL (8.6-10.3); Carbon Dioxide 19 mEq/L (23-29); Chloride 88 mEq/L (98-107); Glucose 705 mg/dL (70-105); Magnesium 2.1 mg/dL (1.6-2.6); Osmolality,Calculated 297 (280-300); Phosphorous 3.8 mg/dL (2.7-4.5); Potassium 4.7 mEq/L (3.5-5.1); Salicylate < 2.5 mg/dL (15.0-30.0); Sodium 123 mEq/L (136-145); Total Protein 7.4 g/dL (6.4-8.9); Troponin I < 0.03 ng/mL (< 0.04); eGFR For African Americans > 60 (> 60); eGFR For Non-African Americans > 60 (> 60)
--- NOTE | 2018-05-13 06:28 | Emergency Department Note ---
Disposition Clinical Impression: DKA, type 1 Qualifiers: Diabetes mellitus complication detail: without coma Qualified Code(s): E10.10 - Type 1 diabetes mellitus with ketoacidosis without coma Disposition: Admitted As Inpatient Condition: Fair Referrals: NONE,PCP [Primary Care Provider] - Forms: ED Satisfaction Letter General Adult HPI - General Chief complaint: ED Altered Mental Status Stated complaint: High blood sugar Time Seen by Provider: 05/13/18 05:22 Source: patient Nursing Notes Reviewed: Yes Vital Signs Reviewed: Yes - History of Present Illness HPI Narrative: 32-year-old male with history of Type 1 diabetes, Meth abuse presents with not feeling well. EMS picked him up and relieved he ran out of insulin over 24 hours. EMS checked he sugar was high in the meter. Patient reported legs cramps and uncomfortable all his body. No headache and chest pain. Pain Scale: 0 Consistency: constant Improves with: nothing - Related Data Home Medications Medication Instructions Recorded Confirmed Venlafaxine XR (24 HR) [Effexor Xr] 150 mg PO DAILY 04/10/18 04/19/18 Previous Rx's Medication Instructions Recorded Gabapentin [Neurontin] 800 mg PO TID #90 tablet 03/14/18 Quetiapine Fumarate [Seroquel] 300 mg PO HS #30 tablet 03/14/18 Insulin LISPRO [HumaLOG] See Protocol SQ TIDAC #1 vial 04/11/18 Phenytoin ER [Dilantin ER] 100 mg PO TID #90 capsule 04/11/18 Sulfamethoxazole/Trimeth DS 1 each PO BID 10 Days #20 tablet 04/18/18 [Bactrim Ds] Gabapentin [Neurontin] 800 mg PO TID 14 Days #42 capsule 04/25/18 Insulin Aspart Prot/Insuln Asp 32 units SQ BID #1 insuln.pen 04/25/18 [Novolog Mix 70-30 Flexpen Syrn] Allergies Allergy/AdvReac Type Severity Reaction Status Date / Time insulin glargine Allergy Blister Verified 04/19/18 08:57 [From Lantus] diphenhydramine AdvReac Intermediate See Verified 04/19/18 08:57 [From Benadryl] Comments Constitutional: Reports: other (uncomfortable). Denies: fever, chills, weakness , weight change Eyes: Denies: eye pain, eye discharge, vision change ENT ED: Denies: ear pain, throat pain, dental pain, hearing loss, epistaxis, congestion, dysphagia Cardiovascular: Denies: chest pain, palpitations, dyspnea on exertion, edema, syncope Respiratory: Denies: cough, dyspnea, wheezes, hemoptysis, stridor Gastrointestinal: Denies: abdominal pain, nausea, vomiting, diarrhea, constipation, hematemesis, melena, hematochezia Genitourinary: Denies: urgency, dysuria, frequency, hematuria Musculoskeletal: Reports: arthralgia, myalgia (legs cramp), other. Denies: back pain, neck pain Integumentary: Denies: rash, abrasion, lesions Neurological: Denies: headache, weakness, numbness, paresthesias, confusion, abnormal gait, vertigo Psychiatric: Denies: anxiety, depression, suicidal thoughts, homicidal thoughts , auditory hallucinations, visual hallucinations Endocrine: Denies: fatigue Hematological/Lymphatic: Denies: easy bleeding, easy bruising Allergic/Immunologic: Denies: facial swelling, urticaria Past Medical History - Past Medical History Medical history: Reports: diabetes, hepatitis, seizures Surgical history: Reports: orthopedic, other Psychiatric history: Reports: previous psychiatric hospitalization - Social History Smoking Status: Current every day smoker Smokeless Tobacco Status: No Alcohol use: Reports: rarely Drug use: Reports: opiates, marijuana, methamphetamine, IV Drug Use Physical Exam - General Limitations: no limitations General appearance: alert - Head Head exam: atraumatic, normal inspection - Eye Eye exam: Present: normal appearance. Absent: scleral icterus, conjunctival injection - ENT ENT exam: normal exam, normal external ear exam - Neck Neck exam: Present: normal inspection, full ROM, trachea midline. Absent: tenderness - Chest Chest inspection: Present: normal inspection, symmetric chest wall rise. Absent : tenderness - Respiratory Respiratory exam: Present: normal lung sounds bilaterally. Absent: respiratory distress, wheezes - Cardiovascular Cardiovascular exam: Present: regular rate, normal rhythm - Abdominal Exam Abdominal exam: Present: soft, Non-Tender - Extremities Exam Extremities exam: Present: normal inspection, full ROM, tenderness (tender on right calf and thigh) - Back Exam Back exam: Present: normal inspection, full ROM, tenderness - Neurological Exam Neurological exam: Present: alert, oriented X3 - Psychiatric Psychiatric exam: Present: agitated, anxious - Skin Skin exam: Present: warm. Absent: intact (scatches all over the body) Course Vital Signs Temperature 98.9 F 05/13/18 05:12 Pulse Rate 108 05/13/18 05:12 Respiratory Rate 20 05/13/18 05:12 Blood Pressure 147/103 05/13/18 05:12 O2 Sat by Pulse Oximetry 100 05/13/18 05:12 Temperature 98.9 F 05/13/18 05:12 Pulse Rate 94 05/13/18 06:56 Respiratory Rate 18 05/13/18 06:56 Blood Pressure 131/90 05/13/18 06:56 O2 Sat by Pulse Oximetry 95 05/13/18 06:56 Oxygen Delivery Oxygen Delivery Room Air Medical Decision Making - MDM Narrative Medical decision making narrative: 32-year-old male with a history of type 1 diabetes and meth abuse presents with not feeling well and hyperglycemia. Patient was believed ran out of insulin over 24 hours. Physical exam: Alert and oriented, anxious, and agitated, bilateral lung sounds clear, mild tachycardia, no murmur, abdomen soft no tender , right calf and thigh mild tender . Labs: Glucose 705, CO2 19, beta hydroxybutyric positive, ketone positive. Impression DKA. Start 2 L saline insulin 10 units subcutaneous, start insulin drip. Paged hospitalist. We will admit patient to ICU. Dr. Horne also saw the patient and agrees the above plan. 07:40 am, discussed the case with Hospitalist Dr. Hanson. pt is accepted to Step down unit. Last time BS 477. - Medical Records Medical records reviewed: Yes I reviewed the patient's medical records. - Lab Data Lab results reviewed: Yes I reviewed the patient's lab results. Result diagrams: 05/13/18 05:49 05/13/18 05:49 Lab Results 05/13/18 05/13/18 05/13/18 Range/Units 05:14 05:15 05:36 WBC (4.3-11.1) K/mcL RBC (4.19-5.50) M/mcL Hgb (12.9-16.9) g/dL Hct (37.5-50.1) % MCV (83.0-100.0) fL MCH (28.0-33.3) pg MCHC (31.6-35.5) g/dL RDW (11.5-14.5) % Plt Count (140-400) K/mcL MPV (9.4-12.4) fL Immature Gran % (0-4) % Seg Neutrophils % % Lymphocytes % % Monocytes % % Eosinophils % % Basophils % % Neutrophils # (1.6-8.9) K/mcL Lymphocytes # (0.6-4.6) K/mcL Monocytes # (0.0-1.3) K/mcL Eosinophils # (0.0-0.6) K/mcL Basophils # (0.0-0.2) K/mcL VBG pH (7.32-7.42) pH Units VBG pCO2 (41-51) mmHg VBG pO2 (25-50) mmHg VBG HCO3 (21-27) mEq/L Sodium (136-145) mEq/L Potassium (3.5-5.1) mEq/L Chloride (98-107) mEq/L Carbon Dioxide (23-29) mEq/L BUN (6-20) mg/dL Creatinine (0.70-1.30) mg/dL Est GFR ( Amer) (> 60) Est GFR (Non-Af Amer) (> 60) BUN/Creatinine Ratio (6-26) Glucose (70-105) mg/dL POC Glucose > 600 H* > 600 H* (70-99) mg/dL Est Mean Plasma Glucose mg/dl Hemoglobin A1c ( - 5.6) % Calculated Osmolality (280-300) Lactic Acid (0.5-2.2) mmol/L Calcium (8.6-10.3) mg/dL Phosphorus (2.7-4.5) mg/dL Magnesium (1.6-2.6) mg/dL Total Bilirubin (0.3-1.0) mg/dL AST (13-39) Units/L ALT (7-52) Units/L Alkaline Phosphatase (34-104) Units/L Troponin I (< 0.04) ng/mL Serum Total Protein (6.4-8.9) g/dL Albumin (3.5-5.7) g/dL Globulin (2.4-3.5) g/dL Albumin/Globulin Ratio (1.1-2.2) Beta-Hydroxybutyric Acd (0.02-0.27) mmol/L Urine Color Yellow (Yellow) Urine Clarity Clear (Clear) Urine pH 6.5 (5.0-8.0) pH Units Ur Specific [place] 1.028 H (1.010-1.025) Urine Protein Negative (Neg-Trace) mg/dL Urine Glucose (UA) >=1000 H (Normal) mg/dL Urine Ketones 40 H (Negative) mg/dL Urine Blood Negative (Negative) Urine Nitrite Negative (Negative) Urine Bilirubin Negative (Negative) Urine Urobilinogen Normal (Normal) mg/dL Ur Leukocyte Esterase Negative (Negative) Ur Culture Indicated? NO (NO) Salicylates (15.0-30.0) mg/dL Urine Opiates Screen (Vqtxvt=503) ng/mL Ur Barbiturates Screen (Jgdpjk=294) ng/mL Ur Phencyclidine Scrn (Cutoff=25) ng/mL Ur Amphetamines Screen (Npfygg=0718) ng/mL U Benzodiazepines Scrn (Jjeeng=660) ng/mL Urine Cocaine Screen (Cutoff= 300) ng/mL U Marijuana (THC) Screen (Cutoff = 50) ng/mL 05/13/18 05/13/18 05/13/18 Range/Units 05:36 05:49 05:49 WBC 9.2 (4.3-11.1) K/mcL RBC 4.21 (4.19-5.50) M/mcL Hgb 12.0 L (12.9-16.9) g/dL Hct 36.5 L (37.5-50.1) % MCV 86.7 (83.0-100.0) fL MCH 28.5 (28.0-33.3) pg MCHC 32.9 (31.6-35.5) g/dL RDW 13.9 (11.5-14.5) % Plt Count 270 (140-400) K/mcL MPV 9.6 (9.4-12.4) fL Immature Gran % 0.3 (0-4) % Seg Neutrophils % 76.1 % Lymphocytes % 16.1 % Monocytes % 7.0 % Eosinophils % 0.2 % Basophils % 0.3 % Neutrophils # 7.0 (1.6-8.9) K/mcL Lymphocytes # 1.5 (0.6-4.6) K/mcL Monocytes # 0.6 (0.0-1.3) K/mcL Eosinophils # 0.0 (0.0-0.6) K/mcL Basophils # 0.0 (0.0-0.2) K/mcL VBG pH (7.32-7.42) pH Units VBG pCO2 (41-51) mmHg VBG pO2 (25-50) mmHg VBG HCO3 (21-27) mEq/L Sodium 123 L (136-145) mEq/L Potassium 4.7 (3.5-5.1) mEq/L Chloride 88 L (98-107) mEq/L Carbon Dioxide 19 L (23-29) mEq/L BUN 32 H (6-20) mg/dL Creatinine 0.92 (0.70-1.30) mg/dL Est GFR ( Amer) > 60 (> 60) Est GFR (Non-Af Amer) > 60 (> 60) BUN/Creatinine Ratio 35 H (6-26) Glucose 705 H* (70-105) mg/dL POC Glucose (70-99) mg/dL Est Mean Plasma Glucose mg/dl Hemoglobin A1c ( - 5.6) % Calculated Osmolality 297 (280-300) Lactic Acid (0.5-2.2) mmol/L Calcium 9.2 (8.6-10.3) mg/dL Phosphorus 3.8 (2.7-4.5) mg/dL Magnesium 2.1 (1.6-2.6) mg/dL Total Bilirubin 0.6 (0.3-1.0) mg/dL AST 76 H (13-39) Units/L ALT 62 H (7-52) Units/L Alkaline Phosphatase 116 H (34-104) Units/L Troponin I < 0.03 (< 0.04) ng/mL Serum Total Protein 7.4 (6.4-8.9) g/dL Albumin 4.4 (3.5-5.7) g/dL Globulin 3.0 (2.4-3.5) g/dL Albumin/Globulin Ratio 1.5 (1.1-2.2) Beta-Hydroxybutyric Acd (0.02-0.27) mmol/L Urine Color (Yellow) Urine Clarity (Clear) Urine pH (5.0-8.0) pH Units Ur Specific [place] (1.010-1.025) Urine Protein (Neg-Trace) mg/dL Urine Glucose (UA) (Normal) mg/dL Urine Ketones (Negative) mg/dL Urine Blood (Negative) Urine Nitrite (Negative) Urine Bilirubin (Negative) Urine Urobilinogen (Normal) mg/dL Ur Leukocyte Esterase (Negative) Ur Culture Indicated? (NO) Salicylates < 2.5 L (15.0-30.0) mg/dL Urine Opiates Screen Negative (Aebyvi=597) ng/mL Ur Barbiturates Screen Negative (Ootwsh=536) ng/mL Ur Phencyclidine Scrn Negative (Cutoff=25) ng/mL Ur Amphetamines Screen Positive H (Kiqvxp=7288) ng/mL U Benzodiazepines Scrn Negative (Cthskv=230) ng/mL Urine Cocaine Screen Negative (Cutoff= 300) ng/mL U Marijuana (THC) Screen Negative (Cutoff = 50) ng/mL 05/13/18 05/13/18 05/13/18 Range/Units 05:49 05:49 05:49 WBC (4.3-11.1) K/mcL RBC (4.19-5.50) M/mcL Hgb (12.9-16.9) g/dL Hct (37.5-50.1) % MCV (83.0-100.0) fL MCH (28.0-33.3) pg MCHC (31.6-35.5) g/dL RDW (11.5-14.5) % Plt Count (140-400) K/mcL MPV (9.4-12.4) fL Immature Gran % (0-4) % Seg Neutrophils % % Lymphocytes % % Monocytes % % Eosinophils % % Basophils % % Neutrophils # (1.6-8.9) K/mcL Lymphocytes # (0.6-4.6) K/mcL Monocytes # (0.0-1.3) K/mcL Eosinophils # (0.0-0.6) K/mcL Basophils # (0.0-0.2) K/mcL VBG pH (7.32-7.42) pH Units VBG pCO2 (41-51) mmHg VBG pO2 (25-50) mmHg VBG HCO3 (21-27) mEq/L Sodium (136-145) mEq/L Potassium (3.5-5.1) mEq/L Chloride (98-107) mEq/L Carbon Dioxide (23-29) mEq/L BUN (6-20) mg/dL Creatinine (0.70-1.30) mg/dL Est GFR ( Amer) (> 60) Est GFR (Non-Af Amer) (> 60) BUN/Creatinine Ratio (6-26) Glucose (70-105) mg/dL POC Glucose (70-99) mg/dL Est Mean Plasma Glucose 263 mg/dl Hemoglobin A1c 10.8 H ( - 5.6) % Calculated Osmolality (280-300) Lactic Acid 0.8 (0.5-2.2) mmol/L Calcium (8.6-10.3) mg/dL Phosphorus (2.7-4.5) mg/dL Magnesium (1.6-2.6) mg/dL Total Bilirubin (0.3-1.0) mg/dL AST (13-39) Units/L ALT (7-52) Units/L Alkaline Phosphatase (34-104) Units/L Troponin I (< 0.04) ng/mL Serum Total Protein (6.4-8.9) g/dL Albumin (3.5-5.7) g/dL Globulin (2.4-3.5) g/dL Albumin/Globulin Ratio (1.1-2.2) Beta-Hydroxybutyric Acd > 2.00 H (0.02-0.27) mmol/L Urine Color (Yellow) Urine Clarity (Clear) Urine pH (5.0-8.0) pH Units Ur Specific [place] (1.010-1.025) Urine Protein (Neg-Trace) mg/dL Urine Glucose (UA) (Normal) mg/dL Urine Ketones (Negative) mg/dL Urine Blood (Negative) Urine Nitrite (Negative) Urine Bilirubin (Negative) Urine Urobilinogen (Normal) mg/dL Ur Leukocyte Esterase (Negative) Ur Culture Indicated? (NO) Salicylates (15.0-30.0) mg/dL Urine Opiates Screen (Tjwrch=935) ng/mL Ur Barbiturates Screen (Nissyt=524) ng/mL Ur Phencyclidine Scrn (Cutoff=25) ng/mL Ur Amphetamines Screen (Coxixp=4235) ng/mL U Benzodiazepines Scrn (Cpdbxl=433) ng/mL Urine Cocaine Screen (Cutoff= 300) ng/mL U Marijuana (THC) Screen (Cutoff = 50) ng/mL 05/13/18 05/13/18 Range/Units 06:03 07:41 WBC (4.3-11.1) K/mcL RBC (4.19-5.50) M/mcL Hgb (12.9-16.9) g/dL Hct (37.5-50.1) % MCV (83.0-100.0) fL MCH (28.0-33.3) pg MCHC (31.6-35.5) g/dL RDW (11.5-14.5) % Plt Count (140-400) K/mcL MPV (9.4-12.4) fL Immature Gran % (0-4) % Seg Neutrophils % % Lymphocytes % % Monocytes % % Eosinophils % % Basophils % % Neutrophils # (1.6-8.9) K/mcL Lymphocytes # (0.6-4.6) K/mcL Monocytes # (0.0-1.3) K/mcL Eosinophils # (0.0-0.6) K/mcL Basophils # (0.0-0.2) K/mcL VBG pH 7.38 (7.32-7.42) pH Units VBG pCO2 39 L (41-51) mmHg VBG pO2 44 (25-50) mmHg VBG HCO3 23 (21-27) mEq/L Sodium (136-145) mEq/L Potassium (3.5-5.1) mEq/L Chloride (98-107) mEq/L Carbon Dioxide (23-29) mEq/L BUN (6-20) mg/dL Creatinine (0.70-1.30) mg/dL Est GFR ( Amer) (> 60) Est GFR (Non-Af Amer) (> 60) BUN/Creatinine Ratio (6-26) Glucose (70-105) mg/dL POC Glucose 477 H* (70-99) mg/dL Est Mean Plasma Glucose mg/dl Hemoglobin A1c ( - 5.6) % Calculated Osmolality (280-300) Lactic Acid (0.5-2.2) mmol/L Calcium (8.6-10.3) mg/dL Phosphorus (2.7-4.5) mg/dL Magnesium (1.6-2.6) mg/dL Total Bilirubin (0.3-1.0) mg/dL AST (13-39) Units/L ALT (7-52) Units/L Alkaline Phosphatase (34-104) Units/L Troponin I (< 0.04) ng/mL Serum Total Protein (6.4-8.9) g/dL Albumin (3.5-5.7) g/dL Globulin (2.4-3.5) g/dL Albumin/Globulin Ratio (1.1-2.2) Beta-Hydroxybutyric Acd (0.02-0.27) mmol/L Urine Color (Yellow) Urine Clarity (Clear) Urine pH (5.0-8.0) pH Units Ur Specific [place] (1.010-1.025) Urine Protein (Neg-Trace) mg/dL Urine Glucose (UA) (Normal) mg/dL Urine Ketones (Negative) mg/dL Urine Blood (Negative) Urine Nitrite (Negative) Urine Bilirubin (Negative) Urine Urobilinogen (Normal) mg/dL Ur Leukocyte Esterase (Negative) Ur Culture Indicated? (NO) Salicylates (15.0-30.0) mg/dL Urine Opiates Screen (Plqmdw=054) ng/mL Ur Barbiturates Screen (Xihvgk=993) ng/mL Ur Phencyclidine Scrn (Cutoff=25) ng/mL Ur Amphetamines Screen (Hfxcoj=9530) ng/mL U Benzodiazepines Scrn (Omfqqo=050) ng/mL Urine Cocaine Screen (Cutoff= 300) ng/mL U Marijuana (THC) Screen (Cutoff = 50) ng/mL - Radiology Data Radiology results reviewed: Yes I reviewed the patient's radiology results. Critical Care Time Critical Care Time: Yes Total Critical Care Time: 35 Attestation: Critical care time 35 minutes with the PA involvement. Attestation Statement - Attestation Attestation: Patient was seen in cooperation with the physician bilingual executive assistant. I reviewed the history physical assessment and plan I agree with the findings. 32-year-old male presents to the emergency department with a chief complaint of not feeling well and leg cramps. He has a history of diabetes and has been out of his colon for 24 hours. Also has multiple track grewal on his arms. Denies other specific complaints at this time. Review of systems as above remainder negative. Physical exam vital signs are stable. ENT is unremarkable. Heart regular rhythm and rate. Lungs clear. Abdomen soft nontender. Extremities multiple track grewal in upper extremities. There is no obvious abscess. Neurologically patient's arousable he had been given Valium prior to my evaluation. Moves all extremities and does not appear to have focal neurologic deficits. Skin track grewal as noted. Psych unremarkable. Patient's glucose and findings were consistent with DKA. He was started on insulin drip given several liters of IV hydration. He was also given Valium for his leg cramps which was highly effective. The PA notified the hospitalist service as the need for admission. The patient will be taken to stepdown unit. Critical care time for this case was 35 minutes.
[2018-05-13] MEDS ORDERED: Insulin Regular, Human 100 UNIT/ML SQ ONE (06:29)
[2018-05-13] MEDS ORDERED: 0.9 % Sodium Chloride 1,000 ML IVC ONE (06:29)
[2018-05-13 06:31] LABS: Amphetamine Screen,Urine Positive ng/mL (Cutoff=1000); Barbiturate Screen,Urine Negative ng/mL (Cutoff=200); Benzodiazepines Screen,Urine Negative ng/mL (Cutoff=200); Cannabinoid Screen,Urine Negative ng/mL (Cutoff = 50); Cocaine Screen,Urine Negative ng/mL (Cutoff= 300); Opiate Screen,Urine Negative ng/mL (Cutoff=300); Phencyclidine Screen,Urine Negative ng/mL (Cutoff=25)
[2018-05-13 06:51] LABS: Estimated Average Glucose 263 mg/dl; Hemoglobin A1C 10.8 %
[2018-05-13] MEDS ORDERED: *HR* Dextrose 50 % in Water (Syg) 50 ML SYRINGE IVP PRN ×2 (07:04→09:37)
[2018-05-13] MEDS ORDERED: Insulin Human Regular 100 UNIT in 0.9 % Sodium Chloride 100 ML IVC SCH ×3 (07:15→12:45)
[2018-05-13] MEDS ORDERED: D5% in 0.45% NACL 1,000 ML IVC PRN (09:37)
[2018-05-13] MEDS ORDERED: Insulin Regular, Human 100 UNIT/ML IV PRN (09:37)
[2018-05-13] MEDS ORDERED: Acetaminophen 325 MG TABLET PO PRN (09:43)
[2018-05-13] MEDS ORDERED: Naloxone 0.4 MG/ML INJ IVP PRN (09:43)
[2018-05-13] MEDS: *HR* Enoxaparin 40 MG/0.4 ML SYRINGE SQ SCH (10:35)
[2018-05-13] MEDS: 0.45 % Sodium Chloride w/KCl 20 MEQ/1,000 ML MLS IVC SCH ×4 (10:36→14:49)
[2018-05-13] MEDS: D5% in 0.45% NACL w KCl 20 MEQ/1,000 ML MLS IVC PRN ×2 (10:38→14:46)
[2018-05-13 11:42] LABS: Sodium 136 mEq/L (136-145)
[2018-05-13 11:43] LABS: BUN/Creatinine Ratio 39 (6-26); Blood Urea Nitrogen 22 mg/dL (6-20); Calcium 8.3 mg/dL (8.6-10.3); Carbon Dioxide 23 mEq/L (23-29); Chloride 108 mEq/L (98-107); Glucose 110 mg/dL (70-105); Osmolality,Calculated 286 (280-300); Potassium 4.2 mEq/L (3.5-5.1); eGFR For African Americans > 60 (> 60); eGFR For Non-African Americans > 60 (> 60)
[2018-05-13] MEDS: Venlafaxine XR (24 HR) 150 MG CAP.ER.24H PO SCH (11:45)
[2018-05-13 12:01] LABS: Estimated Average Glucose 263 mg/dl; Hemoglobin A1C 10.8 %
[2018-05-13] MEDS: Gabapentin 400 MG CAPSULE PO SCH ×2 (14:48→22:10)
[2018-05-13] MEDS ORDERED: Insulin NPH/REG 70/30 100 UNIT/ML (x5UNIT) SQ SCH (15:27)
[2018-05-13] MEDS: Insulin NPH/REG 70/30 100 UNIT/ML (x5UNIT) SQ SCH (16:31)
[2018-05-13 16:50] LABS: BUN/Creatinine Ratio 31 (6-26); Blood Urea Nitrogen 15 mg/dL (6-20); Calcium 8.3 mg/dL (8.6-10.3); Carbon Dioxide 26 mEq/L (23-29); Chloride 106 mEq/L (98-107); Glucose 126 mg/dL (70-105); Osmolality,Calculated 284 (280-300); Potassium 3.8 mEq/L (3.5-5.1); Sodium 136 mEq/L (136-145); eGFR For African Americans > 60 (> 60); eGFR For Non-African Americans > 60 (> 60)
[2018-05-13] MEDS: Insulin LISPRO 300 UNITS/3 ML VIAL SQ SCH (16:58)
--- NOTE | 2018-05-13 17:47 | Internal Med History&Physical ---
Date of Encounter: 05/13/18 Time of Encounter: 10:27 Internal Medicine - H&P: HPI Chief complaint: "Not feeling good" Admitted From: Emergency Dept Plans for Post Hospital Care: Home History of present illness: Mr. Lemus is a 32 year old male who presented to ED today because he felt "sick." He was picked up by EMS and found to have "high" reading on glucometer enroute. He states that he "hurts all over." He denies nausea or vomiting. He has history of Type I DM. He states that he last took insulin yesterday morning. He states that he was not given needles for his insulin at last hospital discharge. He is in a very angry mood during my interview and examination. He is using extensive profanity, and being vulgar about nursing staff. I advised him that mistreatment of nurses or other hospital staff will not be tolerated. After further discussion, it seems that he is angry about repeated blood draws. He states that he is OK with blood draws from his "hand" but not from his "arm." I advised nursing staff and radiology technologist of this. He seems to be very high risk of leaving AMA if he is inconvenienced. I counselled him extensively on DKA and the extent of his illness, but he denies that he is in DKA. He is agreeable to staying at this time if blood draws are only from his hand. Blood glucose was 700s in ED. On insulin drip, it has come down to 400s. He has no specific complaints at this time. He denies fever , chills, chest pain, SOB, nausea, vomiting, abdominal pain, changes in bladder , or changes in bowels. Past Med Surg Social Fam HX - Past Medical History Attestation: Yes The following information was validated with the patient. Source: patient Medical history: diabetes, hepatitis, seizures, other (IVDU) Additional medical history: hep C Psychiatric history: previous psychiatric hospitalization - Past Surgical History Surgical History: orthopedic, other Additional surgical history: right ankle - Social History Smoking Status: Current every day smoker Smokeless Tobacco Status: No Alcohol use: rarely Drug use: opiates, marijuana, methamphetamine, IV Drug Use - Family History Father Family Member Ethnicity: Non- Living Status: Hx Family Cardiac Disorders: Yes ([place]) Hx Family Endocrine Disorder: Yes (DM) Mother Family Member Ethnicity: Non- Living Status: Still Living Sister Family Member Ethnicity: Non- Living Status: Still Living - Additional Family History Additional family history: Family history verified with patient. Internal Medicine - H&P: Meds RX: Gabapentin [Neurontin] 800 mg PO TID #90 tablet 03/14/18 [Rx] RX: Quetiapine Fumarate [Seroquel] 300 mg PO HS #30 tablet 03/14/18 [Rx] RX: Venlafaxine XR (24 HR) [Effexor Xr] 150 mg PO DAILY 04/10/18 [History] RX: Insulin LISPRO [HumaLOG] See Protocol SQ TIDAC #1 vial 04/11/18 [Rx] RX: Phenytoin ER [Dilantin ER] 100 mg PO TID #90 capsule 04/11/18 [Rx] RX: Insulin Aspart Prot/Insuln Asp [Novolog Mix 70-30 Flexpen Syrn] 32 units SQ BID #1 insuln.pen 04/25/18 [Rx] 3 Allergy/AdvReac Type Severity Reaction Status Date / Time insulin glargine Allergy Blister Verified 04/19/18 08:57 [From Lantus] diphenhydramine AdvReac Intermediate See Verified 04/19/18 08:57 [From Benadryl] Comments All Systems PM: A 10-system review of systems was performed and is negative for pertinent findings except as documented above in the HPI. - Constitutional Vitals: Temp Pulse Resp BP Pulse Ox 97.8 F 74 18 117/88 96 05/13/18 16:06 05/13/18 16:06 05/13/18 16:06 05/13/18 16:06 05/13/18 16:06 General appearance: Present: mild distress (Angry), A&O X 3, answers questions appropriately. Absent: cooperative, pleasant - Head Head exam: Present: atraumatic, normal inspection, normocephalic - Eye Eye exam: Present: EOMI, PERRL. Absent: conjunctival injection, nystagmus, scleral icterus - ENT ENT exam: Present: mucous membranes moist, normal external ear exam, normal oropharynx - Neck Neck exam general surgery: Present: supple, trachea midline. Absent: lymphadenopathy, tenderness, thyromegaly - Respiratory Respiratory exam: Present: CTAB. Absent: accessory muscle use, rales, rhonchi, wheezes Additional comments: Normal WOB - Cardiovascular Cardiovascular exam: Present: RRR, +S1, +S2. Absent: diastolic murmur, gallop, rubs, systolic murmur Additional comments: No BLE edema - GI/Abdominal GI/Abdominal exam: Present: normal bowel sounds, soft. Absent: distended, hepatomegaly, mass, splenomegaly, tenderness - Neurological Exam Neurological exam: Present: alert, CN II-XII intact, oriented X3, no focal deficits, strengths equal and symetr throughout. Absent: motor sensory deficit , facial droop, speech deficit - Psychiatric Psychiatric exam: Present: agitated. Absent: anxious, depressed - Skin Skin exam: Present: dry, intact, warm. Absent: cyanosis, rash Internal Med - H&P Results - Labs CBC & Chem 7: 05/13/18 05:49 05/13/18 16:18 Labs: BMP 05/13/18 05/13/18 11:12 16:18 Sodium 136 D 136 Potassium 4.2 3.8 Chloride 108 H 106 Carbon Dioxide 23 26 BUN 22 H 15 Creatinine 0.56 L 0.49 L Glucose 110 H 126 H Calcium 8.3 L 8.3 L - Assessment and plan (1) DKA (diabetic ketoacidoses) Current Visit: Yes Status: Acute Assessment and plan: Admit as inpatient to step down unit with telemetry. Start DKA protocol with IVF and insulin drip. Monitor accuchecks and labwork. Will transition to home 70/30 insulin and SSI once blood glucose improved and anion gap closed. Will start diabetic diet once on SQ insulin. Social work consulted for possible discharge planning issues. He has already declined some treatments, and he is high risk for leaving AMA despite my education. Qualifiers: Diabetes mellitus type: type 1 Diabetes mellitus complication detail: without coma Qualified Code(s): E10.10 - Type 1 diabetes mellitus with ketoacidosis without coma (2) DKA, type 1 Current Visit: Yes Status: Chronic Assessment and plan: Management as per above. Qualifiers: Diabetes mellitus complication detail: without coma Qualified Code(s): E10.10 - Type 1 diabetes mellitus with ketoacidosis without coma (3) Noncompliance Current Visit: Yes Status: Chronic Assessment and plan: High risk of leaving AMA as per above. (4) Antisocial personality disorder Current Visit: Yes Status: Chronic Assessment and plan: Disrespectful to nursing and hospital staff. I have addressed with him and explained that this will not be tolerated. Continue home medications. (5) Bipolar 1 disorder, depressed Current Visit: Yes Status: Chronic Assessment and plan: Continue home medications. (6) History of seizures Current Visit: Yes Status: Chronic Assessment and plan: Continue home medications. (7) IV drug abuse Current Visit: Yes Status: Chronic Assessment and plan: Counselled on cessation of drug use. He is not receptive to listening at this time. (8) DVT prophylaxis Current Visit: Yes Status: Acute Assessment and plan: Start lovenox 40 mg SQ QD and SCDs. - Time Spent With Patient Total time spent is greater than 50% in coordination of care (as documented) at patient's floor/unit and/or counseling patient: 25 - 35 minutes
[2018-05-13] MEDS ORDERED: Insulin LISPRO 300 UNITS/3 ML VIAL SQ SCH (21:00)
[2018-05-14] MEDS: *HR* Enoxaparin 40 MG/0.4 ML SYRINGE SQ SCH (06:50)
[2018-05-14 07:25] LABS: Alanine Aminotransferase 53 Units/L (7-52); Albumin/Globulin Ratio 1.3 (1.1-2.2); Alkaline Phosphatase 82 Units/L (34-104); Aspartate Amino Transferase 66 Units/L (13-39); BUN/Creatinine Ratio 23 (6-26); Bilirubin,Total 0.3 mg/dL (0.3-1.0); Blood Urea Nitrogen 13 mg/dL (6-20); Calcium 8.5 mg/dL (8.6-10.3); Carbon Dioxide 26 mEq/L (23-29); Chloride 106 mEq/L (98-107); Chol/HDL Ratio 3.4 (0-4.9); Cholesterol 163 mg/dL (< 200); Globulin 2.3 g/dL (2.4-3.5); Glucose 310 mg/dL (70-105); HDL Cholesterol 48 mg/dL (40-59); LDL Cholesterol,Calculated 90 mg/dL (0-99); Magnesium 1.8 mg/dL (1.6-2.6); Osmolality,Calculated 292 (280-300); Potassium 4.4 mEq/L (3.5-5.1); Sodium 135 mEq/L (136-145); Total Protein 5.3 g/dL (6.4-8.9); Triglycerides 123 mg/dL (< 150); eGFR For African Americans > 60 (> 60); eGFR For Non-African Americans > 60 (> 60)
[2018-05-14] MEDS: Gabapentin 400 MG CAPSULE PO SCH (08:06)
[2018-05-14] MEDS: Venlafaxine XR (24 HR) 150 MG CAP.ER.24H PO SCH (08:06)
[2018-05-14] MEDS: Insulin NPH/REG 70/30 100 UNIT/ML (x5UNIT) SQ SCH (08:06)
[2018-05-14] MEDS: Insulin LISPRO 300 UNITS/3 ML VIAL SQ SCH ×2 (08:07→11:12)
--- NOTE | 2018-05-14 09:38 | Discharge Summary ---
- NOTES TO OUTPATIENT PROVIDER Notes to Outpatient Provider: Patient admitted with DKA. Treated with DKA protocol with IV fluids and insulin. DKA has now resolved. Patient stable to be discharged back home. His been strongly advised to keep compliant with his insulin regimen. He has been provided with prescriptions for all his medications and his insulin. Date of Encounter: 05/14/18 Time of Encounter: 09:34 - Discharge Diagnosis (1) DKA, type 1 Priority: Primary Status: Chronic Qualifiers: Diabetes mellitus complication detail: without coma Qualified Code(s): E10.10 - Type 1 diabetes mellitus with ketoacidosis without coma (2) IV drug abuse Priority: Secondary Status: Chronic (3) History of seizures Priority: Secondary Status: Chronic (4) Bipolar 1 disorder, depressed Priority: Secondary Status: Chronic (5) Antisocial personality disorder Priority: Secondary Status: Chronic (6) DKA (diabetic ketoacidoses) Priority: Secondary Status: Acute Qualifiers: Diabetes mellitus type: type 1 Diabetes mellitus complication detail: without coma Qualified Code(s): E10.10 - Type 1 diabetes mellitus with ketoacidosis without coma (7) DVT prophylaxis Priority: Secondary Status: Acute (8) Noncompliance Priority: Secondary Status: Chronic Hospital course: Mr. Lemus is a 32 year old male Patient with history of type 1 diabetes, depression, seizures, IV drug abuse was admitted with DKA. He was Treated with DKA protocol with IV fluids and insulin. DKA has now resolved. Patient stable to be discharged back home. His been strongly advised to keep compliant with his insulin regimen. He has been provided with prescriptions for all his medications and his insulin. Discharge discussed with: patient, nurse - Time Spent with Patient Total time spent providing and/or coordinating discharge services: Greater than 30 minutes (32 min) - Discharge Medications Prescriptions: Gabapentin [Neurontin] 800 mg PO TID 20 Days #60 tablet Insulin Aspart Prot/Insuln Asp [Novolog Mix 70-30 Flexpen Syrn] 32 units SQ BID #1 insuln.pen Insulin LISPRO [HumaLOG] See Protocol SQ TIDAC #1 vial Phenytoin ER [Dilantin ER] 100 mg PO TID #90 capsule Quetiapine Fumarate [Seroquel] 300 mg PO HS #30 tablet Venlafaxine XR (24 HR) [Effexor Xr] 150 mg PO DAILY #30 cap.er.24h Home Medications: Gabapentin [Neurontin] 800 mg PO TID 20 Days #60 tablet 05/14/18 [Rx] Insulin Aspart Prot/Insuln Asp [Novolog Mix 70-30 Flexpen Syrn] 32 units SQ BID #1 insuln.pen 05/14/18 [Rx] Insulin LISPRO [HumaLOG] See Protocol SQ TIDAC #1 vial 05/14/18 [Rx] Phenytoin ER [Dilantin ER] 100 mg PO TID #90 capsule 05/14/18 [Rx] Quetiapine Fumarate [Seroquel] 300 mg PO HS #30 tablet 05/14/18 [Rx] Venlafaxine XR (24 HR) [Effexor Xr] 150 mg PO DAILY #30 cap.er.24h 05/14/18 [Rx] Allergies/Adverse Reactions: 3 Allergy/AdvReac Type Severity Reaction Status Date / Time insulin glargine Allergy Blister Verified 04/19/18 08:57 [From Lantus] diphenhydramine AdvReac Intermediate See Verified 04/19/18 08:57 [From Benadryl] Comments Date of admission: 05/13/18 07:57 Primary care physician: PCP NONE Consults: 05/13/18 09:37 Consult to Cloth Hauler [CONS] Routine Reason for SW Consult: Discharge Planning Discharging clinician: Tiarra Wolf Anticipated date of discharge: 05/14/18 - Constitutional Vitals: Temp Pulse Resp BP Pulse Ox 98.0 F 73 18 125/78 95 05/14/18 07:29 05/14/18 07:29 05/14/18 07:29 05/14/18 07:29 05/14/18 07:29 General appearance: Present: A&O X 3, no acute distress, answers questions appropriately. Absent: cooperative, pleasant - Eye Eye exam: Present: PERRL, conjuntiva pink, sclera anicteric - Neck Neck exam general surgery: Present: supple, trachea midline. Absent: lymphadenopathy - Respiratory Respiratory exam: Present: CTAB. Absent: accessory muscle use, rales, rhonchi, wheezes - Cardiovascular Cardiovascular exam: Present: RRR, +S1, +S2. Absent: diastolic murmur, gallop, rubs, systolic murmur - GI/Abdominal GI/Abdominal exam: Present: normal bowel sounds, soft, no peritoneal signs. Absent: distended, tenderness - Patient Status Disposition: Home, Self-Care Condition: Good Functional capacity at discharge: independent ambulation Overall status at discharge: patient is back to baseline - Discharge Instructions Instructions: Diabetes Mellitus Type 2 in Adults (DC) Follow Up With: NONE,PCP [Primary Care Provider] - (Please set up care with a PCP and follow up LENA) - Diet and Activity Activity: increase activity as tolerated Diet: diabetic diet
[2018-05-14 11:06] VITALS: BP 130/80
--- NOTE | 2018-05-15 09:40 | Electrocardiograph Report ---
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
== END 2018-05-14 13:02 | disposition home or self-care (01) ==
LOC: EMEROO 05:06 → SUATTDRO 07:57 → INTOOBSV 07:57 → 2NNU 07:57
PROVIDERS: ADMIT Internal Medicine; ATTEND Internal Medicine

== ENCOUNTER 2018-05-30 12:13 | Observation (INO) ==
[2018-05-30] MEDS ORDERED: Gabapentin 400 MG CAPSULE PO STA ×2 (12:36→21:07)
[2018-05-30 13:25] LABS: Bilirubin,Urine Negative (Negative); Blood,Urine Negative (Negative); Clarity,Urine Clear (Clear); Color,Urine Yellow (Yellow); Glucose,Urine (UA) >=1000 mg/dL (Normal); Ketones,Urine Trace mg/dL (Negative); Leukocyte Esterase,Urine Negative (Negative); Nitrite,Urine Negative (Negative); Protein,Urine Negative (Neg-Trace); Specific Gravity,Urine 1.014 (1.010-1.025); Urobilinogen,Urine Normal (Normal)
[2018-05-30] MEDS: 0.9 % Sodium Chloride 1,000 ML IVC SCH ×2 (13:48→15:20)
[2018-05-30 13:51] LABS: VBG HCO3 24 mEq/L (21-27); VBG PCO2 33 mmHg (41-51); VBG PH 7.47 pH Units (7.32-7.42); VBG PO2 178 mmHg (25-50)
[2018-05-30 13:53] LABS: Basophils % 0.3 %; Eosinophils # 0.1 K/mcL (0.0-0.6); Eosinophils % 1.3 %; Hemoglobin 11.6 g/dL (12.9-16.9); Immature Granulocytes % 0.5 % (0-4); Lymphocytes # 0.8 K/mcL (0.6-4.6); Lymphocytes % 13.1 %; Mean Corpuscular HGB Conc 34.1 g/dL (31.6-35.5); Mean Corpuscular Hemoglobin 28.9 pg (28.0-33.3); Mean Corpuscular Volume 84.8 fL (83.0-100.0); Mean Platelet Volume 9.2 fL (9.4-12.4); Monocytes # 0.3 K/mcL (0.0-1.3); Platelet Count 218 K/mcL (140-400); Red Blood Count 4.01 M/mcL (4.19-5.50); Red Cell Distribution Width 13.4 % (11.5-14.5); Segmented Neutrophils % 79.8 %
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
[2018-05-30 14:16] LABS: Alanine Aminotransferase 44 Units/L (7-52); Albumin 3.3 g/dL (3.5-5.7); Albumin/Globulin Ratio 1.6 (1.1-2.2); Alkaline Phosphatase 100 Units/L (34-104); Aspartate Amino Transferase 43 Units/L (13-39); BUN/Creatinine Ratio 13 (6-26); Bilirubin,Total 0.5 mg/dL (0.3-1.0); Blood Urea Nitrogen 9 mg/dL (6-20); Calcium 8.6 mg/dL (8.6-10.3); Carbon Dioxide 23 mEq/L (23-29); Chloride 102 mEq/L (98-107); Globulin 2.1 g/dL (2.4-3.5); Glucose 479 mg/dL (70-105); Magnesium 1.7 mg/dL (1.6-2.6); Osmolality,Calculated 292 (280-300); Potassium 4.2 mEq/L (3.5-5.1); Sodium 131 mEq/L (136-145); Total Protein 5.4 g/dL (6.4-8.9); eGFR For African Americans > 60 (> 60); eGFR For Non-African Americans > 60 (> 60)
[2018-05-30 14:22] LABS: Amphetamine Screen,Urine Positive ng/mL (Cutoff=1000); Barbiturate Screen,Urine Negative ng/mL (Cutoff=200); Benzodiazepines Screen,Urine Negative ng/mL (Cutoff=200); Cannabinoid Screen,Urine Negative ng/mL (Cutoff = 50); Cocaine Screen,Urine Negative ng/mL (Cutoff= 300); Opiate Screen,Urine Negative ng/mL (Cutoff=300); Phencyclidine Screen,Urine Negative ng/mL (Cutoff=25)
[2018-05-30] MEDS ORDERED: Insulin Regular, Human 100 UNIT/ML IV ONE (14:23)
[2018-05-30 17:02] LABS: Acetaminophen < 10 mcg/mL (10-20); Ethanol < 10 mg/dL (Less than 10); Salicylate < 2.5 mg/dL (15.0-30.0)
--- NOTE | 2018-05-30 17:31 | Electrocardiograph Report ---
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
[2018-05-30] MEDS ORDERED: SODIUM CHLORIDE 0.9% IV ONE (19:07)
[2018-05-30] MEDS ORDERED: INSULIN HUMAN REGULAR IV ONE (19:07)
--- NOTE | 2018-05-30 21:07 | Emergency Department Note ---
Disposition Clinical Impression: Elevated glucose, Suicidal ideation Uncontrolled diabetes mellitus Qualifiers: Diabetes mellitus type: other specified (including [place]) Diabetes mellitus [facility] insulin use: with intermodal dispatcher use Diabetes mellitus complication status : without complication Qualified Code(s): E13.65 - Other specified diabetes mellitus with hyperglycemia Disposition: Admitted As Inpatient Condition: Good Reasons to Return/Additional Instructions: Continue to stay hydrated and eat a well-balanced diet. Your pharmacy will have medications and testing equipment made available to you. Use the flex pen as previously prescribed. Return to the emergency department for worsening symptoms including: Worsening fatigue, any fevers or chills, or any nausea and vomiting. Referrals: [facility] [Outside] [facility] [Outside] NONE,PCP [Primary Care Provider] - Forms: ED Satisfaction Letter, Work/School Release General Adult HPI - General Chief complaint: ED General Medical Stated complaint: "sugar is high" Time Seen by Provider: 05/30/18 12:23 Source: patient Mode of arrival: ambulatory Limitations: no limitations - History of Present Illness Pain Scale: 0 - Related Data Home Medications Medication Instructions Recorded Confirmed Insulin Aspart Prot/Insuln Asp 22 units SQ BID 05/30/18 05/30/18 [Novolog Mix 70-30 Flexpen Syrn] Previous Rx's Medication Instructions Recorded Gabapentin [Neurontin] 800 mg PO TID 20 Days #60 tablet 05/14/18 Insulin LISPRO [HumaLOG] See Protocol SQ TIDAC #1 vial 05/14/18 Phenytoin ER [Dilantin ER] 100 mg PO TID #90 capsule 05/14/18 Quetiapine Fumarate [Seroquel] 300 mg PO HS #30 tablet 05/14/18 Venlafaxine XR (24 HR) [Effexor Xr] 150 mg PO DAILY #30 cap.er.24h 05/14/18 Allergies Allergy/AdvReac Type Severity Reaction Status Date / Time insulin glargine Allergy Blister Verified 05/30/18 20:54 [From Lantus] diphenhydramine AdvReac Intermediate See Verified 05/30/18 20:54 [From Benadryl] Comments Past Medical History - Past Medical History Medical history: Reports: diabetes, hepatitis, seizures, other (IVDU) Surgical history: Reports: orthopedic, other Psychiatric history: Reports: previous psychiatric hospitalization - Social History Smoking Status: Current every day smoker Smokeless Tobacco Status: No Alcohol use: Reports: rarely Drug use: Reports: opiates, marijuana, methamphetamine, IV Drug Use Physical Exam - General Limitations: no limitations General appearance: lethargic Course Course Narrative: See prior note for further details. Uncontrolled diabetes secondary to noncompliance. Elevated serum ketones. Patient seen by one ean and kendra slip recommended secondary to suicidal ideation expressed during stay. Case is discussed with hospitalist. Patient except for admission. - Consultations Consultation #1: Discussed with hospitalist. Patient accepted for admission. Vital Signs Temperature 97.7 F 05/30/18 12:15 Pulse Rate 97 05/30/18 12:15 Respiratory Rate 16 05/30/18 12:15 Blood Pressure 114/80 05/30/18 12:15 O2 Sat by Pulse Oximetry 98 05/30/18 12:15 Temperature 97.7 F 05/30/18 14:09 Pulse Rate 85 05/30/18 14:10 Respiratory Rate 16 05/30/18 14:10 Blood Pressure 129/83 05/30/18 14:10 O2 Sat by Pulse Oximetry 94 05/30/18 14:10 Oxygen Delivery Oxygen Delivery Room Air Medical Decision Making - Lab Data Result diagrams: 05/30/18 13:39 05/30/18 13:39 Lab Results 05/30/18 05/30/18 05/30/18 Range/Units 13:05 13:05 13:39 WBC 6.2 (4.3-11.1) K/mcL RBC 4.01 L (4.19-5.50) M/mcL Hgb 11.6 L (12.9-16.9) g/dL Hct 34.0 L (37.5-50.1) % MCV 84.8 (83.0-100.0) fL MCH 28.9 (28.0-33.3) pg MCHC 34.1 (31.6-35.5) g/dL RDW 13.4 (11.5-14.5) % Plt Count 218 (140-400) K/mcL MPV 9.2 L (9.4-12.4) fL Immature Gran % 0.5 (0-4) % Seg Neutrophils % 79.8 % Lymphocytes % 13.1 % Monocytes % 5.0 % Eosinophils % 1.3 % Basophils % 0.3 % Neutrophils # 5.0 (1.6-8.9) K/mcL Lymphocytes # 0.8 (0.6-4.6) K/mcL Monocytes # 0.3 (0.0-1.3) K/mcL Eosinophils # 0.1 (0.0-0.6) K/mcL Basophils # 0.0 (0.0-0.2) K/mcL VBG pH (7.32-7.42) pH Units VBG pCO2 (41-51) mmHg VBG pO2 (25-50) mmHg VBG HCO3 (21-27) mEq/L Sodium (136-145) mEq/L Potassium (3.5-5.1) mEq/L Chloride (98-107) mEq/L Carbon Dioxide (23-29) mEq/L BUN (6-20) mg/dL Creatinine (0.70-1.30) mg/dL Est GFR ( Amer) (> 60) Est GFR (Non-Af Amer) (> 60) BUN/Creatinine Ratio (6-26) Glucose (70-105) mg/dL Calculated Osmolality (280-300) Calcium (8.6-10.3) mg/dL Magnesium (1.6-2.6) mg/dL Total Bilirubin (0.3-1.0) mg/dL AST (13-39) Units/L ALT (7-52) Units/L Alkaline Phosphatase (34-104) Units/L Serum Total Protein (6.4-8.9) g/dL Albumin (3.5-5.7) g/dL Globulin (2.4-3.5) g/dL Albumin/Globulin Ratio (1.1-2.2) Beta-Hydroxybutyric Acd (0.02-0.27) mmol/L Urine Color Yellow (Yellow) Urine Clarity Clear (Clear) Urine pH 6.0 (5.0-8.0) pH Units Ur Specific [place] 1.014 (1.010-1.025) Urine Protein Negative (Neg-Trace) mg/dL Urine Glucose (UA) >=1000 H (Normal) mg/dL Urine Ketones Trace H (Negative) mg/dL Urine Blood Negative (Negative) Urine Nitrite Negative (Negative) Urine Bilirubin Negative (Negative) Urine Urobilinogen Normal (Normal) mg/dL Ur Leukocyte Esterase Negative (Negative) Ur Culture Indicated? NO (NO) Salicylates (15.0-30.0) mg/dL Urine Opiates Screen Negative (Umngrd=444) ng/mL Acetaminophen (10-20) mcg/mL Ur Barbiturates Screen Negative (Calbet=027) ng/mL Ur Phencyclidine Scrn Negative (Cutoff=25) ng/mL Ur Amphetamines Screen Positive H (Knhfne=7250) ng/mL U Benzodiazepines Scrn Negative (Bveaai=784) ng/mL Urine Cocaine Screen Negative (Cutoff= 300) ng/mL U Marijuana (THC) Screen Negative (Cutoff = 50) ng/mL Ur Drug Screen Interp See Below Ethyl Alcohol (Less than 10) mg/dL 05/30/18 05/30/18 05/30/18 Range/Units 13:39 13:39 13:48 WBC (4.3-11.1) K/mcL RBC (4.19-5.50) M/mcL Hgb (12.9-16.9) g/dL Hct (37.5-50.1) % MCV (83.0-100.0) fL MCH (28.0-33.3) pg MCHC (31.6-35.5) g/dL RDW (11.5-14.5) % Plt Count (140-400) K/mcL MPV (9.4-12.4) fL Immature Gran % (0-4) % Seg Neutrophils % % Lymphocytes % % Monocytes % % Eosinophils % % Basophils % % Neutrophils # (1.6-8.9) K/mcL Lymphocytes # (0.6-4.6) K/mcL Monocytes # (0.0-1.3) K/mcL Eosinophils # (0.0-0.6) K/mcL Basophils # (0.0-0.2) K/mcL VBG pH 7.47 H (7.32-7.42) pH Units VBG pCO2 33 L (41-51) mmHg VBG pO2 178 H (25-50) mmHg VBG HCO3 24 (21-27) mEq/L Sodium 131 L (136-145) mEq/L Potassium 4.2 (3.5-5.1) mEq/L Chloride 102 (98-107) mEq/L Carbon Dioxide 23 (23-29) mEq/L BUN 9 (6-20) mg/dL Creatinine 0.67 L (0.70-1.30) mg/dL Est GFR ( Amer) > 60 (> 60) Est GFR (Non-Af Amer) > 60 (> 60) BUN/Creatinine Ratio 13 (6-26) Glucose 479 H (70-105) mg/dL Calculated Osmolality 292 (280-300) Calcium 8.6 (8.6-10.3) mg/dL Magnesium 1.7 (1.6-2.6) mg/dL Total Bilirubin 0.5 (0.3-1.0) mg/dL AST 43 H (13-39) Units/L ALT 44 (7-52) Units/L Alkaline Phosphatase 100 (34-104) Units/L Serum Total Protein 5.4 L (6.4-8.9) g/dL Albumin 3.3 L (3.5-5.7) g/dL Globulin 2.1 L (2.4-3.5) g/dL Albumin/Globulin Ratio 1.6 (1.1-2.2) Beta-Hydroxybutyric Acd 0.84 H (0.02-0.27) mmol/L Urine Color (Yellow) Urine Clarity (Clear) Urine pH (5.0-8.0) pH Units Ur Specific [place] (1.010-1.025) Urine Protein (Neg-Trace) mg/dL Urine Glucose (UA) (Normal) mg/dL Urine Ketones (Negative) mg/dL Urine Blood (Negative) Urine Nitrite (Negative) Urine Bilirubin (Negative) Urine Urobilinogen (Normal) mg/dL Ur Leukocyte Esterase (Negative) Ur Culture Indicated? (NO) Salicylates < 2.5 L (15.0-30.0) mg/dL Urine Opiates Screen (Stbfbb=171) ng/mL Acetaminophen < 10 L (10-20) mcg/mL Ur Barbiturates Screen (Ekpzuw=714) ng/mL Ur Phencyclidine Scrn (Cutoff=25) ng/mL Ur Amphetamines Screen (Xstkho=5673) ng/mL U Benzodiazepines Scrn (Fvvcmw=014) ng/mL Urine Cocaine Screen (Cutoff= 300) ng/mL U Marijuana (THC) Screen (Cutoff = 50) ng/mL Ur Drug Screen Interp Ethyl Alcohol < 10 (Less than 10) mg/dL
[2018-05-30] MEDS ORDERED: Naloxone 0.4 MG/ML INJ IVP PRN (23:01)
[2018-05-30] MEDS ORDERED: *HR* Dextrose 50 % in Water (Syg) 50 ML SYRINGE IVP PRN (23:08)
[2018-05-30] MEDS ORDERED: Dextrose Gel 15 GM/37.5 ML TUBE PO PRN ×2 (23:08)
[2018-05-30] MEDS ORDERED: D5% in Water 1,000 ML IVC PRN (23:08)
[2018-05-30] MEDS ORDERED: 0.9 % Sodium Chloride 1,000 ML IVC SCH (23:15)
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
[2018-05-30] MEDS: Insulin NPH/REG 70/30 100 UNIT/ML (x5UNIT) SQ SCH (23:32)
[2018-05-31] MEDS: Insulin LISPRO 300 UNITS/3 ML VIAL SQ SCH ×6 (04:23→19:24)
[2018-05-31 07:25] LABS: Basophils % 0.6 %; Eosinophils # 0.2 K/mcL (0.0-0.6); Eosinophils % 3.6 %; Hematocrit 36.7 % (37.5-50.1); Hemoglobin 12.7 g/dL (12.9-16.9); Immature Granulocytes % 0.4 % (0-4); Lymphocytes # 1.7 K/mcL (0.6-4.6); Lymphocytes % 35.2 %; Mean Corpuscular HGB Conc 34.6 g/dL (31.6-35.5); Mean Corpuscular Hemoglobin 29.7 pg (28.0-33.3); Mean Corpuscular Volume 85.7 fL (83.0-100.0); Mean Platelet Volume 9.5 fL (9.4-12.4); Monocytes # 0.4 K/mcL (0.0-1.3); Monocytes % 7.8 %; Neutrophils # 2.5 K/mcL (1.6-8.9); Platelet Count 249 K/mcL (140-400); Red Blood Count 4.28 M/mcL (4.19-5.50); Red Cell Distribution Width 13.2 % (11.5-14.5); Segmented Neutrophils % 52.4 %
[2018-05-31 07:46] LABS: BUN/Creatinine Ratio 25 (6-26); Blood Urea Nitrogen 14 mg/dL (6-20); Calcium 8.9 mg/dL (8.6-10.3); Carbon Dioxide 24 mEq/L (23-29); Chloride 111 mEq/L (98-107); Glucose 45 mg/dL (70-105); Osmolality,Calculated 288 (280-300); Potassium 4.1 mEq/L (3.5-5.1); Sodium 140 mEq/L (136-145); eGFR For African Americans > 60 (> 60); eGFR For Non-African Americans > 60 (> 60)
[2018-05-31] MEDS: Insulin NPH/REG 70/30 100 UNIT/ML (x5UNIT) SQ SCH ×2 (08:26→17:00)
[2018-05-31] MEDS: Venlafaxine XR (24 HR) 150 MG CAP.ER.24H PO SCH (09:28)
[2018-05-31] MEDS: Gabapentin 400 MG CAPSULE PO SCH ×3 (09:28→19:38)
--- NOTE | 2018-05-31 15:24 | Internal Med Progress Note ---
Date of Encounter: 05/31/18 Time of Encounter: 11:15 - Assessment and plan (1) Antisocial personality disorder Current Visit: Yes Status: Chronic Assessment and plan: Patient was disruptive with care and hospital staff on admission. Patient is drowsy, calm. Sitter at bedside. High risk for continued disruptive behavior. Psychiatry consulted. (2) Elevated glucose Current Visit: Yes Status: Acute Assessment and plan: Pt with uncontrolled type II DM. A1c 10.8% in April,. Monitor labs. Patient did not receive morning dose of 70/30 insulin. It does not appear that he breakfast, looks that he approximates 75% of lunch. Accu-Chek was 60 this morning at 0825, 415 after lunch. Continue to monitor for DKA. Anion gap is currently 5.0. Patient been refusing insulin previously, continue to encourage insulin. (3) History of seizures Current Visit: Yes Status: Chronic Assessment and plan: Seizure precautions. Continue home medications. (4) Hyponatremia Current Visit: Yes Status: Resolved (5) Substance abuse Current Visit: Yes Status: Acute Assessment and plan: Drug screen positive for amphetamines. [facility] report indicates that he has no amphetamines prescribed to him. (6) Suicidal ideation Current Visit: Yes Status: Acute Assessment and plan: Sitter remains at bedside. Pt is drowsy and assessment was difficult. Psychiatrist has been consulted today. Continue to monitor for safety (7) Uncontrolled diabetes mellitus Current Visit: Yes Status: Chronic Assessment and plan: Elevated A1c. Plan as above. Qualifiers: Diabetes mellitus type: other specified (including [place]) Diabetes mellitus snf insulin use: with snf use Diabetes mellitus complication status: without complication Qualified Code(s): E13.65 - Other specified diabetes mellitus with hyperglycemia; Z79.4 - rn long term care (current) use of insulin - Time Spent With Patient Total time spent is greater than 50% in coordination of care (as documented) at patient's floor/unit and/or counseling patient: less than 15 minutes - Subjective Interval history: Patient was seen and assessed at bedside 11:15 AM. He is very drowsy, arouses briefly to answer questions but goes back to sleep. Sitter is at bedside. - Constitutional Vitals: Temp Pulse Resp BP Pulse Ox 97.5 F L 70 16 99/63 98 05/31/18 04:00 05/31/18 04:00 05/31/18 04:00 05/31/18 04:00 05/31/18 04:00 General appearance: Present: cooperative, pleasant, no acute distress, answers questions appropriately - Head Head exam: Present: atraumatic, normocephalic - Eye Eye exam: Present: normal appearance, conjuntiva pink, sclera anicteric - Neck Neck exam general surgery: Present: supple, trachea midline. Absent: lymphadenopathy - Respiratory Respiratory exam: Present: CTAB. Absent: accessory muscle use, rales, respiratory distress, rhonchi, wheezes - Cardiovascular Cardiovascular exam: Present: RRR, +S1, +S2. Absent: diastolic murmur, gallop, rubs, systolic murmur - GI/Abdominal GI/Abdominal exam: Present: normal bowel sounds, soft. Absent: distended, hepatomegaly, tenderness - Extremities Exam Extremities exam: Present: normal capillary refill, normal inspection, warm, radial pulses palpable and symmetrical. Absent: calf tenderness, cyanotic, pedal edema, tenderness - Neurological Exam Neurological exam: Present: no focal deficits. Absent: facial droop, speech deficit - Skin Skin exam: Present: dry, intact, normal color, warm. Absent: rash Internal Medicine: Result - Labs CBC & Chem 7: 05/31/18 06:59 05/31/18 06:59 Labs: Short CBC 05/31/18 Range/Units 06:59 WBC 4.7 (4.3-11.1) K/mcL Hgb 12.7 L (12.9-16.9) g/dL Hct 36.7 L (37.5-50.1) % Plt Count 249 (140-400) K/mcL Neutrophils # 2.5 (1.6-8.9) K/mcL BMP 05/31/18 06:59 Sodium 140 D Potassium 4.1 Chloride 111 H Carbon Dioxide 24 BUN 14 Creatinine 0.55 L Glucose 45 L Calcium 8.9 - VTE Reasons for not Prescribing Prophylaxis: Treatment not Indicated - Low risk for VTE Consult Discharge Plan - Plan Referrals: NONE,PCP [Primary Care Provider] -
[2018-05-31] MEDS ORDERED: Insulin NPH/REG 70/30 100 UNIT/ML (x5UNIT) SQ SCH (23:30)
[2018-06-01] MEDS: Insulin LISPRO 300 UNITS/3 ML VIAL SQ SCH ×6 (02:48→20:18)
[2018-06-01 06:41] LABS: Basophils % 0.3 %; Eosinophils # 0.2 K/mcL (0.0-0.6); Eosinophils % 2.9 %; Hematocrit 36.3 % (37.5-50.1); Hemoglobin 11.9 g/dL (12.9-16.9); Immature Granulocytes % 0.2 % (0-4); Lymphocytes # 1.7 K/mcL (0.6-4.6); Mean Corpuscular HGB Conc 32.8 g/dL (31.6-35.5); Mean Corpuscular Hemoglobin 28.6 pg (28.0-33.3); Mean Corpuscular Volume 87.3 fL (83.0-100.0); Mean Platelet Volume 9.5 fL (9.4-12.4); Monocytes # 0.4 K/mcL (0.0-1.3); Monocytes % 6.2 %; Neutrophils # 3.7 K/mcL (1.6-8.9); Platelet Count 222 K/mcL (140-400); Red Blood Count 4.16 M/mcL (4.19-5.50); Red Cell Distribution Width 13.4 % (11.5-14.5); Segmented Neutrophils % 61.4 %
[2018-06-01 06:58] LABS: BUN/Creatinine Ratio 29 (6-26); Blood Urea Nitrogen 18 mg/dL (6-20); Calcium 8.7 mg/dL (8.6-10.3); Carbon Dioxide 26 mEq/L (23-29); Chloride 100 mEq/L (98-107); Glucose 392 mg/dL (70-105); Osmolality,Calculated 292 (280-300); Potassium 3.8 mEq/L (3.5-5.1); Sodium 132 mEq/L (136-145); eGFR For African Americans > 60 (> 60); eGFR For Non-African Americans > 60 (> 60)
[2018-06-01] MEDS: Insulin NPH/REG 70/30 100 UNIT/ML (x5UNIT) SQ SCH ×3 (08:46→17:47)
[2018-06-01] MEDS: Gabapentin 400 MG CAPSULE PO SCH ×3 (08:55→20:19)
[2018-06-01] MEDS: Venlafaxine XR (24 HR) 150 MG CAP.ER.24H PO SCH (08:55)
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
--- NOTE | 2018-06-01 17:53 | Internal Med Progress Note ---
Date of Encounter: 06/01/18 Time of Encounter: 10:30 - Assessment and plan (1) Antisocial personality disorder Current Visit: Yes Status: Chronic Assessment and plan: Patient was disruptive with care and hospital staff on admission. Patient is calm, cooperative. Sitter at bedside. Psychiatry has signed off. Continue gabapentin, Seroquel, Effexor. Psychiatry feels patient will not likely benefit from psychiatric hospitalization and does not require pink slip. Sitter can be discontinued. (2) Elevated glucose Current Visit: Yes Status: Acute Assessment and plan: Pt with uncontrolled type II DM. A1c 10.8% in April,. Patient has been refusing insulin and Accu-Cheks. Continue to monitor for DKA. Continue to monitor labs and encourage insulin and Accu-Cheks. (3) History of seizures Current Visit: Yes Status: Chronic Assessment and plan: Seizure precautions. Continue home medications. (4) Hyponatremia Current Visit: Yes Status: Resolved Assessment and plan: 132 today. Continue to monitor. Likely secondary to mental health medications and reduced by mouth intake. (5) Substance abuse Current Visit: Yes Status: Chronic Assessment and plan: Drug screen positive for amphetamines. OARRS report indicates that he has no amphetamines prescribed to him. Patient has been counseled by psychiatrist regarding abstinence from drugs. Patient verbalized understanding. (6) Suicidal ideation Current Visit: Yes Status: Acute Assessment and plan: Sitter has been discontinued. [place] slip has also been discontinued. Patient does not require inpatient admission. Continue to monitor for safety (7) Uncontrolled diabetes mellitus Current Visit: Yes Status: Chronic Assessment and plan: Elevated A1c. Plan as above. Qualifiers: Diabetes mellitus type: other specified (including [place]) Diabetes mellitus medical terminologist insulin use: with fci use Diabetes mellitus complication status: without complication Qualified Code(s): E13.65 - Other specified diabetes mellitus with hyperglycemia; Z79.4 - medical terminologist (current) use of insulin - Time Spent With Patient Total time spent is greater than 50% in coordination of care (as documented) at patient's floor/unit and/or counseling patient: less than 15 minutes - Subjective Interval history: Patient was seen and assessed at bedside 1030 AM. He is more alert today, answers questions appropriately. Sitter is at bedside. Patient states that he is not feeling well, that he is better than he was before. He denies any complaints including headache, nausea, vomiting, shortness of breath, chest pain , blurred vision, abdominal pain. He states he is very tired. We will continue to monitor his blood sugar overnight, ensure that he has his medications prior to discharge, the patient will most likely discharge tomorrow. - Constitutional Vitals: Temp Pulse Resp BP Pulse Ox 98.1 F 82 17 135/82 97 06/01/18 15:43 06/01/18 15:43 06/01/18 15:43 06/01/18 15:43 06/01/18 15:43 General appearance: Present: cooperative, pleasant, no acute distress, answers questions appropriately - Head Head exam: Present: atraumatic, normal inspection, normocephalic - Eye Eye exam: Present: normal appearance, conjuntiva pink, sclera anicteric - Neck Neck exam general surgery: Present: supple, trachea midline. Absent: lymphadenopathy - Respiratory Respiratory exam: Present: CTAB. Absent: accessory muscle use, rales, rhonchi, wheezes - Cardiovascular Cardiovascular exam: Present: RRR, +S1, +S2. Absent: diastolic murmur, gallop, rubs, systolic murmur - GI/Abdominal GI/Abdominal exam: Present: normal bowel sounds, soft. Absent: distended, hepatomegaly, tenderness - Extremities Exam Extremities exam: Present: normal capillary refill, normal inspection, warm, radial pulses palpable and symmetrical. Absent: calf tenderness, cyanotic, pedal edema, tenderness - Neurological Exam Neurological exam: Present: alert, oriented X3, no focal deficits. Absent: facial droop, speech deficit - Skin Skin exam: Present: dry, intact, normal color, warm. Absent: rash Internal Medicine: Result - Labs CBC & Chem 7: 06/01/18 06:06 06/01/18 06:06 Labs: Short CBC 06/01/18 Range/Units 06:06 WBC 6.0 (4.3-11.1) K/mcL Hgb 11.9 L (12.9-16.9) g/dL Hct 36.3 L (37.5-50.1) % Plt Count 222 (140-400) K/mcL Neutrophils # 3.7 (1.6-8.9) K/mcL BMP 06/01/18 06:06 Sodium 132 L Potassium 3.8 Chloride 100 Carbon Dioxide 26 BUN 18 Creatinine 0.62 L Glucose 392 H Calcium 8.7 - VTE Reasons for not Prescribing Prophylaxis: Treatment not Indicated - Low risk for VTE Consult Discharge Plan - Plan Referrals: NONE,PCP [Primary Care Provider] -
[2018-06-02] MEDS: Insulin LISPRO 300 UNITS/3 ML VIAL SQ SCH ×4 (00:46→12:48)
[2018-06-02 05:41] LABS: Basophils % 0.5 %; Eosinophils # 0.2 K/mcL (0.0-0.6); Eosinophils % 3.6 %; Hematocrit 40.3 % (37.5-50.1); Hemoglobin 13.1 g/dL (12.9-16.9); Immature Granulocytes % 0.6 % (0-4); Lymphocytes # 2.1 K/mcL (0.6-4.6); Lymphocytes % 32.6 %; Mean Corpuscular HGB Conc 32.5 g/dL (31.6-35.5); Mean Corpuscular Hemoglobin 28.4 pg (28.0-33.3); Mean Corpuscular Volume 87.2 fL (83.0-100.0); Mean Platelet Volume 9.6 fL (9.4-12.4); Monocytes # 0.4 K/mcL (0.0-1.3); Neutrophils # 3.5 K/mcL (1.6-8.9); Platelet Count 252 K/mcL (140-400); Red Blood Count 4.62 M/mcL (4.19-5.50); Red Cell Distribution Width 13.3 % (11.5-14.5); Segmented Neutrophils % 55.7 %
[2018-06-02 05:55] LABS: BUN/Creatinine Ratio 38 (6-26); Blood Urea Nitrogen 20 mg/dL (6-20); Calcium 9.1 mg/dL (8.6-10.3); Carbon Dioxide 27 mEq/L (23-29); Chloride 103 mEq/L (98-107); Glucose 51 mg/dL (70-105); Osmolality,Calculated 282 (280-300); Sodium 136 mEq/L (136-145); eGFR For African Americans > 60 (> 60); eGFR For Non-African Americans > 60 (> 60)
[2018-06-02] MEDS: Gabapentin 400 MG CAPSULE PO SCH (08:01)
[2018-06-02] MEDS: Venlafaxine XR (24 HR) 150 MG CAP.ER.24H PO SCH (08:01)
[2018-06-02] MEDS: Insulin NPH/REG 70/30 100 UNIT/ML (x5UNIT) SQ SCH (08:02)
[2018-06-02 11:26] VITALS: BP 107/71
--- NOTE | 2018-06-02 16:01 | Discharge Summary ---
- NOTES TO OUTPATIENT PROVIDER Notes to Outpatient Provider: Pt will need refills on his mental health medications and will need to establish with mental health provider Orders not resulted at time of discharge: Pending orders 06/03/18 04:00 Basic Metabolic Panel AM 0400 Complete Blood Count [HEME] AM 0400 Date of Encounter: 06/02/18 Time of Encounter: 09:05 - Discharge Diagnosis (1) Antisocial personality disorder Priority: Primary Status: Chronic Assessment and Plan: Patient was disruptive with care and hospital staff on admission. Patient is calm, cooperative. Psychiatry has signed off. Continue gabapentin, Seroquel, Effexor. Psychiatry feels patient will not likely benefit from psychiatric hospitalization and does not require pink slip. (2) Elevated glucose Priority: Secondary Status: Acute Assessment and Plan: Pt with uncontrolled type II DM. A1c 10.8% in April,. Pt has achieved adequate control while inpatient with supervision when he is compliant with medications and accuchecks. Pt will be given a prescription for his insulin and for pens, lancets, lancet device, and glucometer. (3) History of seizures Priority: Secondary Status: Chronic Assessment and Plan: Seizure precautions. Continue home medications. (4) Hyponatremia Priority: Secondary Status: Resolved Assessment and Plan: 136 today. Continue to monitor. Likely secondary to mental health medications and reduced by mouth intake. (5) Substance abuse Priority: Secondary Status: Chronic Assessment and Plan: Drug screen positive for amphetamines. OARRS report indicates that he has no amphetamines prescribed to him. Patient has been counseled by psychiatrist regarding abstinence from drugs. Patient verbalized understanding. (6) Suicidal ideation Priority: Secondary Status: Resolved Assessment and Plan: Sitter has been discontinued. [place] slip has also been discontinued. Pt denies SI/HI today Patient does not require inpatient admission. (7) Uncontrolled diabetes mellitus Priority: Secondary Status: Chronic Assessment and Plan: Elevated A1c. Plan as above for elevated glucose. Qualifiers: Diabetes mellitus type: other specified (including [place]) Diabetes mellitus intermediate insulin use: with terminal superintendent use Diabetes mellitus complication status: without complication Qualified Code(s): E13.65 - Other specified diabetes mellitus with hyperglycemia; Z79.4 - terminal superintendent (current) use of insulin (8) DVT prophylaxis Priority: Secondary Status: Acute Assessment and Plan: Pt has been ambulatory in his room, up in chair. Hospital course: Mr. Lemus is a 32 year old male with pmh of diabetes, IV drug abuse, amphetamine abuse, DKA, bipolar, antisocial personality disorder, hepatitis C. patient was brought here by the police for evaluation. Patient was found to be suicidal and had a pink slip. Patient was also seen for uncontrolled diabetes and hyperglycemia. Patient was not in DKA. He had a sitter for several days, he was evaluated by 3 who found him to not be suicidal, did not need hospitalization for mental health issues, also did not need pink slip. Patient is going to be discharged. He states he is going to move to [place] on Tuesday and he will be staying with a friend in town until that time. I will be refilling his insulin, Lantus sats, we will be giving him and his glucometer. Patient will need to follow with primary care or mental health for medications pertinent to mental health such as gabapentin and Seroquel, I will refill Effexor. Labs are stable, serum glucose 165 today. Accu-Cheks have been scattered, patient has been noncompliant with allowing them. Patient will be discharged to home in stable condition. Discharge discussed with: patient, nurse - Time Spent with Patient Total time spent providing and/or coordinating discharge services: Less than 30 minutes - Discharge Medications Prescriptions: Insulin Aspart Prot/Insuln Asp [Novolog Mix 70-30 Flexpen Syrn] 22 units SQ BID #2 insuln.pen Home Medications: Gabapentin [Neurontin] 800 mg PO TID 20 Days #60 tablet 05/14/18 [Rx] Insulin LISPRO [HumaLOG] See Protocol SQ TIDAC #1 vial 05/14/18 [Rx] Phenytoin ER [Dilantin ER] 100 mg PO TID #90 capsule 05/14/18 [Rx] Quetiapine Fumarate [Seroquel] 300 mg PO HS #30 tablet 05/14/18 [Rx] Venlafaxine XR (24 HR) [Effexor Xr] 150 mg PO DAILY #30 cap.er.24h 05/14/18 [Rx] Insulin Aspart Prot/Insuln Asp [Novolog Mix 70-30 Flexpen Syrn] 22 units SQ BID #2 insuln.pen 06/02/18 [Rx] Allergies/Adverse Reactions: 3 Allergy/AdvReac Type Severity Reaction Status Date / Time insulin glargine Allergy Blister Verified 05/30/18 20:54 [From Lantus] diphenhydramine AdvReac Intermediate See Verified 05/30/18 20:54 [From Benadryl] Comments Date of admission: 05/30/18 21:26 Primary care physician: PCP NONE Consults: 05/31/18 15:45 Consult to Psychiatry [CONS] Routine Consulting Provider: Psychiatry Elana Reason consult: Sitter/1:1 Other reason and/or additional details: Suicidal Time Notified: 15:47 Call Completed: Yes Discharging clinician: Liz Bello Anticipated date of discharge: 06/02/18 - Constitutional Vitals: Temp Pulse Resp BP Pulse Ox 98.2 F 81 18 107/71 99 06/02/18 11:21 06/02/18 11:21 06/02/18 11:21 06/02/18 11:21 06/02/18 11:21 General appearance: Present: cooperative, pleasant, no acute distress, answers questions appropriately - Head Head exam: Present: atraumatic, normal inspection, normocephalic - Eye Eye exam: Present: normal appearance, conjuntiva pink, sclera anicteric - Neck Neck exam general surgery: Present: supple, trachea midline. Absent: lymphadenopathy, tenderness - Respiratory Respiratory exam: Present: CTAB. Absent: accessory muscle use, chest wall tenderness, rales, rhonchi, wheezes - Cardiovascular Cardiovascular exam: Present: RRR, +S1, +S2. Absent: diastolic murmur, gallop, rubs, systolic murmur - GI/Abdominal GI/Abdominal exam: Present: normal bowel sounds, soft. Absent: distended, hepatomegaly, tenderness - Extremities Exam Extremities exam: Present: normal capillary refill, normal inspection, warm, radial pulses palpable and symmetrical. Absent: calf tenderness, cyanotic, pedal edema, tenderness - Neurological Exam Neurological exam: Present: alert, oriented X3, no focal deficits. Absent: altered, facial droop, speech deficit - Skin Skin exam: Present: dry, intact, normal color, warm. Absent: rash - Patient Status Disposition: Home, Self-Care Condition: Good Functional capacity at discharge: independent ambulation Overall status at discharge: patient is progressing back to baseline - Discharge Instructions Follow Up With: NONE,PCP [Primary Care Provider] - Additional Instructions: Please establish with primary care provider when you arrive in [place]. You will need to get refills on your Seroquel and gabapentin. Watch your diet. Your A1c is highly elevated and you can control this with compliance with diet and insulin. Take your medications as directed. REturn to the ER as needed for any other problem or concern, or if your symptoms return or worsen. - Diet and Activity Activity: increase activity as tolerated Diet: diabetic diet - VTE Reasons for not Prescribing Prophylaxis: Treatment not Indicated - Low risk for VTE
== END 2018-06-02 17:35 | disposition home or self-care (01) ==
LOC: EMEROO 12:13 → 3BNU 12:13
PROVIDERS: ADMIT Internal Medicine; ATTEND Internal Medicine

== ENCOUNTER 2018-06-03 10:03 | Inpatient (IN) ==
--- NOTE | 2018-06-03 10:10 | Emergency Department Note ---
Disposition Clinical Impression: Hyperglycemia, Suicidal ideation Disposition: Admitted As Inpatient Condition: Fair Referrals: NONE,PCP [Primary Care Provider] - General Adult HPI - General Stated complaint: hypoglycemia Time Seen by Provider: 06/03/18 10:06 Nursing Notes Reviewed: Yes Vital Signs Reviewed: Yes - Related Data Previous Rx's Medication Instructions Recorded Gabapentin [Neurontin] 800 mg PO TID 20 Days #60 tablet 05/14/18 Insulin LISPRO [HumaLOG] See Protocol SQ TIDAC #1 vial 05/14/18 Quetiapine Fumarate [Seroquel] 300 mg PO HS #30 tablet 05/14/18 Insulin Aspart Prot/Insuln Asp 22 units SQ BID #2 insuln.pen 06/02/18 [Novolog Mix 70-30 Flexpen Syrn] Phenytoin ER [Dilantin ER] 100 mg PO TID #90 capsule 06/02/18 Venlafaxine XR (24 HR) [Effexor Xr] 150 mg PO DAILY #30 cap.er.24h 06/02/18 Allergies Allergy/AdvReac Type Severity Reaction Status Date / Time insulin glargine Allergy Blister Verified 05/30/18 20:54 [From Lantus] diphenhydramine AdvReac Intermediate See Verified 05/30/18 20:54 [From Benadryl] Comments Past Medical History - Past Medical History Medical history: Reports: diabetes, hepatitis, seizures, other Surgical history: Reports: orthopedic, other Psychiatric history: Reports: depression, previous psychiatric hospitalization - Social History Smoking Status: Current every day smoker Smokeless Tobacco Status: No Alcohol use: Reports: rarely Drug use: Reports: opiates, marijuana, methamphetamine, IV Drug Use Course Vital Signs Temperature 97.7 F 06/03/18 10:04 Pulse Rate 1 06/03/18 10:04 Respiratory Rate 18 06/03/18 10:04 Blood Pressure 139/85 06/03/18 10:04 O2 Sat by Pulse Oximetry 99 06/03/18 10:04 Temperature 97.7 F 06/03/18 10:04 Pulse Rate 70 06/03/18 11:44 Respiratory Rate 18 06/03/18 11:44 Blood Pressure 128/76 06/03/18 11:44 O2 Sat by Pulse Oximetry 96 06/03/18 11:44 Oxygen Delivery Oxygen Delivery Room Air Medical Decision Making - MDM Narrative Medical decision making narrative: 1020 hrs.: Patient now states he does have some suicidal ideations which is his baseline. So we will move him into a secured room remains had ER with a sitter. However we will still manage him. 1100 hrs.: Patient's labs are coming back he is hyperglycemic, he is not acidotic, his ketones are high. We will start him on insulin. We will he does have hyponatremia, but some of this is due to the fact that he has a high glucose. We replenished do a medical admission on him. He will need a pink slip hour because he will need evaluated by psychiatry. We will speak with hospitalist, and 1A. 1200 hrs.: Placed a consult for psychiatry hospitalist as accepted patient for admission. - Lab Data Result diagrams: 06/03/18 10:17 06/03/18 10:17 Lab Results 06/03/18 06/03/18 06/03/18 Range/Units 10:17 10:17 10:17 WBC 10.8 D (4.3-11.1) K/mcL RBC 4.52 (4.19-5.50) M/mcL Hgb 13.2 (12.9-16.9) g/dL Hct 38.8 (37.5-50.1) % MCV 85.8 (83.0-100.0) fL MCH 29.2 (28.0-33.3) pg MCHC 34.0 (31.6-35.5) g/dL RDW 13.4 (11.5-14.5) % Plt Count 276 (140-400) K/mcL MPV 9.4 (9.4-12.4) fL Immature Gran % 0.6 (0-4) % Seg Neutrophils % 77.6 % Lymphocytes % 14.0 % Monocytes % 6.5 % Eosinophils % 0.9 % Basophils % 0.4 % Neutrophils # 8.4 (1.6-8.9) K/mcL Lymphocytes # 1.5 (0.6-4.6) K/mcL Monocytes # 0.7 (0.0-1.3) K/mcL Eosinophils # 0.1 (0.0-0.6) K/mcL Basophils # 0.0 (0.0-0.2) K/mcL VBG pH (7.32-7.42) pH Units VBG pCO2 (41-51) mmHg VBG pO2 (25-50) mmHg VBG HCO3 (21-27) mEq/L Sodium 125 L (136-145) mEq/L Potassium 4.7 (3.5-5.1) mEq/L Chloride 91 L (98-107) mEq/L Carbon Dioxide 25 (23-29) mEq/L BUN 24 H (6-20) mg/dL Creatinine 0.73 (0.70-1.30) mg/dL Est GFR ( Amer) > 60 (> 60) Est GFR (Non-Af Amer) > 60 (> 60) BUN/Creatinine Ratio 33 H (6-26) Glucose 675 H* (70-105) mg/dL Calculated Osmolality 296 (280-300) Calcium 9.4 (8.6-10.3) mg/dL Beta-Hydroxybutyric Acd 1.47 H (0.02-0.27) mmol/L Urine Color (Yellow) Urine Clarity (Clear) Urine pH (5.0-8.0) pH Units Ur Specific [place] (1.010-1.025) Urine Protein (Neg-Trace) mg/dL Urine Glucose (UA) (Normal) mg/dL Urine Ketones (Negative) mg/dL Urine Blood (Negative) Urine Nitrite (Negative) Urine Bilirubin (Negative) Urine Urobilinogen (Normal) mg/dL Ur Leukocyte Esterase (Negative) Ur Culture Indicated? (NO) Salicylates < 2.5 L (15.0-30.0) mg/dL Acetaminophen < 10 L (10-20) mcg/mL Ur Drug Screen Interp Ethyl Alcohol < 10 (Less than 10) mg/dL 06/03/18 06/03/18 06/03/18 Range/Units 10:54 10:54 11:22 WBC (4.3-11.1) K/mcL RBC (4.19-5.50) M/mcL Hgb (12.9-16.9) g/dL Hct (37.5-50.1) % MCV (83.0-100.0) fL MCH (28.0-33.3) pg MCHC (31.6-35.5) g/dL RDW (11.5-14.5) % Plt Count (140-400) K/mcL MPV (9.4-12.4) fL Immature Gran % (0-4) % Seg Neutrophils % % Lymphocytes % % Monocytes % % Eosinophils % % Basophils % % Neutrophils # (1.6-8.9) K/mcL Lymphocytes # (0.6-4.6) K/mcL Monocytes # (0.0-1.3) K/mcL Eosinophils # (0.0-0.6) K/mcL Basophils # (0.0-0.2) K/mcL VBG pH 7.37 (7.32-7.42) pH Units VBG pCO2 51 (41-51) mmHg VBG pO2 69 H (25-50) mmHg VBG HCO3 29 H (21-27) mEq/L Sodium (136-145) mEq/L Potassium (3.5-5.1) mEq/L Chloride (98-107) mEq/L Carbon Dioxide (23-29) mEq/L BUN (6-20) mg/dL Creatinine (0.70-1.30) mg/dL Est GFR ( Amer) (> 60) Est GFR (Non-Af Amer) (> 60) BUN/Creatinine Ratio (6-26) Glucose (70-105) mg/dL Calculated Osmolality (280-300) Calcium (8.6-10.3) mg/dL Beta-Hydroxybutyric Acd (0.02-0.27) mmol/L Urine Color Yellow (Yellow) Urine Clarity Clear (Clear) Urine pH 6.5 (5.0-8.0) pH Units Ur Specific [place] > 1.030 H (1.010-1.025) Urine Protein Negative (Neg-Trace) mg/dL Urine Glucose (UA) >=1000 H (Normal) mg/dL Urine Ketones Trace H (Negative) mg/dL Urine Blood Negative (Negative) Urine Nitrite Negative (Negative) Urine Bilirubin Negative (Negative) Urine Urobilinogen Normal (Normal) mg/dL Ur Leukocyte Esterase Negative (Negative) Ur Culture Indicated? NO (NO) Salicylates (15.0-30.0) mg/dL Acetaminophen (10-20) mcg/mL Ur Drug Screen Interp See Below Ethyl Alcohol (Less than 10) mg/dL Critical Care Time Critical Care Time: Yes Total Critical Care Time: 45 Attestation: Excluding any separately billable procedures. Attestation Statement - Attestation Attestation: This documentation is done with the assistance of Catherine muroation. Despite efforts made to ensure accuracy, there may be inaccuracies in echocardiograph tech or spelling and typographical errors. I examined this patient and my medical decision-making was reviewed with the Resident Physician. I agree with the documented findings, disposition and treatment plan as described except to the extent set forth below. Patient seen and evaluated by Dr. Dillard myself, I agree with his evaluation and management plan, supervised the care of the patient's stay. Patient presents with elevated blood sugar. Just discharged from the hospital yesterday following a psychiatric evaluation and admission for hyperglycemia. He was prescribed his meds but urinating and felt against: Depending on which story he tells you. Were going to check his blood sugar here check labs and safelyservice consult for him also. Depending what his lab work looks like an this situation will determine if he needs an medical admission or not. Raynaud is not suicidal or homicidal is cooperative.
--- NOTE | 2018-06-03 10:12 | Emergency Department Note ---
Disposition Clinical Impression: Hyperglycemia, Suicidal ideation Disposition: Admitted As Inpatient Condition: Fair Referrals: NONE,PCP [Primary Care Provider] - Time of Disposition: 11:43 General Adult HPI - General Stated complaint: hypoglycemia Time Seen by Provider: 06/03/18 10:06 Nursing Notes Reviewed: Yes Vital Signs Reviewed: Yes - History of Present Illness HPI Narrative: 32-year-old male presents via EMS for evaluation of hyperglycemia. His home glucose meter read, "high." EMS glucose meter read the same. He has associated nausea with no vomiting. No abdominal pain at this time. In general , he feels "like crap." Patient is uncontrolled type II diabetic 7 years. Insulin regimen is as below. He was discharged from this facility yesterday with prescriptions for insulin needles and insulin. He has not filled these. Is a history of antisocial personality disorder, seizure history, substance abuse, history of suicidal ideation. When discussing his previous admission, patient was wheeled reasons he was admitted was for mental health services. He states that, since discharge yesterday, he has had intermittent suicidal ideation. Lantus 70/30-20 units a.m., 20 units p.m. Humalog on medium sliding scale ROS: Pos: as above Neg: fever, chills vomiting, abdominal pain, chest pain, dyspnea, diaphoresis, unusual back pains, trauma, changes in bowel or bladder habits, confusion - Related Data Previous Rx's Medication Instructions Recorded Gabapentin [Neurontin] 800 mg PO TID 20 Days #60 tablet 05/14/18 Insulin LISPRO [HumaLOG] See Protocol SQ TIDAC #1 vial 05/14/18 Quetiapine Fumarate [Seroquel] 300 mg PO HS #30 tablet 05/14/18 Insulin Aspart Prot/Insuln Asp 22 units SQ BID #2 insuln.pen 06/02/18 [Novolog Mix 70-30 Flexpen Syrn] Phenytoin ER [Dilantin ER] 100 mg PO TID #90 capsule 06/02/18 Venlafaxine XR (24 HR) [Effexor Xr] 150 mg PO DAILY #30 cap.er.24h 06/02/18 Allergies Allergy/AdvReac Type Severity Reaction Status Date / Time insulin glargine Allergy Blister Verified 05/30/18 20:54 [From Lantus] diphenhydramine AdvReac Intermediate See Verified 05/30/18 20:54 [From [place]] Comments All systems ED: reviewed and negative except as stated. Review of Systems: As Per HPI Past Medical History - Past Medical History Medical history: Reports: diabetes, hepatitis, seizures, other Surgical history: Reports: orthopedic, other Psychiatric history: Reports: depression, previous psychiatric hospitalization - Social History Smoking Status: Current every day smoker Smokeless Tobacco Status: No Alcohol use: Reports: rarely Drug use: Reports: opiates, marijuana, methamphetamine, IV Drug Use Physical Exam Vital Signs Reviewed General: Patient is alert, oriented, and in no acute distress. Head: atraumatic, normocephalic Eye: normal appearance, PERRL, EOMI, no scleral icterus, no conjunctival injection ENT: mucous membranes moist, normal external ear exam Neck: normal inspection, trachea midline, full ROM Chest: normal inspection, symmetric chest rise Respiratory: Good respiratory effort. Bilateral breath sounds are clear without wheezing, crackles, or rhonchi. Cardiovascular: Regular rate and rhythm. No clicks, rubs, gallops, or murmors. Normal heart sounds. Abdomen: Bowel sounds present normoactive. Abdomen is soft, nondistended, and nontender. No guarding or rebound. No organomegaly noted. Musculoskeletal: Spontaneously moving all extremities. Skin: warm, dry, intact. Neuro: Alert and oriented x4. Sensation light touch intact. Psych: Patient's affect is appropriate for situation. Course Course Narrative: Clinically, patient does not appear to be in DKA. His hyperglycemia very likely secondary to noncompliance. Based on review systems as well as physical exam, low suspicion for infectious etiology or other comforting factor that could be contributing to his hyperglycemia. Will order labs looking for anion gap. Will volume resuscitate. We will hold on insulin for lab work is returned. Additionally, will begin suicidal precautions. We will remove patient from [facility] emergency department over to a more appropriate room with the sitter. Will add additional lab work for mental health medical clearance. Lab work shows hyponatremia. Corrected sodium for his hyperglycemia is 139. We will continue to monitor. Serum glucose 627. Have provided 2 L of IV saline and will begin insulin drip. Patient is not in DKA that he does have serum ketones is not acidotic. Patient is not in HHS; serum osmol's below 320. I discussed the above the patient. He is in agreement with admission for continued medical workup as well as consultation to mental health services. I discussed the patient with the admitting hospitalist, Dr. Baum, who agrees to accept the patient for hyperglycemia and inpatient 1A evaluation. EKG dated 03 June 2018 at 10:47 interpreted as sinus rhythm with rate of 79. MO 123, QRS 90, QTC 414. Normal axis. Nonspecific ST-T changes. Compared to previous EKG dated 05/30/2018 showing no acute ischemic changes or comparison. Vital Signs Temperature 97.7 F 06/03/18 10:04 Pulse Rate 1 06/03/18 10:04 Respiratory Rate 18 06/03/18 10:04 Blood Pressure 139/85 06/03/18 10:04 O2 Sat by Pulse Oximetry 99 06/03/18 10:04 Temperature 97.7 F 06/03/18 10:04 Pulse Rate 75 06/03/18 11:03 Respiratory Rate 18 06/03/18 11:03 Blood Pressure 126/82 06/03/18 11:03 O2 Sat by Pulse Oximetry 95 06/03/18 11:03 Oxygen Delivery Oxygen Delivery Room Air Medical Decision Making - Lab Data Result diagrams: 06/03/18 10:17 06/03/18 10:17 Lab Results 06/03/18 06/03/18 06/03/18 Range/Units 10:17 10:17 10:17 WBC 10.8 D (4.3-11.1) K/mcL RBC 4.52 (4.19-5.50) M/mcL Hgb 13.2 (12.9-16.9) g/dL Hct 38.8 (37.5-50.1) % MCV 85.8 (83.0-100.0) fL MCH 29.2 (28.0-33.3) pg MCHC 34.0 (31.6-35.5) g/dL RDW 13.4 (11.5-14.5) % Plt Count 276 (140-400) K/mcL MPV 9.4 (9.4-12.4) fL Immature Gran % 0.6 (0-4) % Seg Neutrophils % 77.6 % Lymphocytes % 14.0 % Monocytes % 6.5 % Eosinophils % 0.9 % Basophils % 0.4 % Neutrophils # 8.4 (1.6-8.9) K/mcL Lymphocytes # 1.5 (0.6-4.6) K/mcL Monocytes # 0.7 (0.0-1.3) K/mcL Eosinophils # 0.1 (0.0-0.6) K/mcL Basophils # 0.0 (0.0-0.2) K/mcL VBG pH (7.32-7.42) pH Units VBG pCO2 (41-51) mmHg VBG pO2 (25-50) mmHg VBG HCO3 (21-27) mEq/L Sodium 125 L (136-145) mEq/L Potassium 4.7 (3.5-5.1) mEq/L Chloride 91 L (98-107) mEq/L Carbon Dioxide 25 (23-29) mEq/L BUN 24 H (6-20) mg/dL Creatinine 0.73 (0.70-1.30) mg/dL Est GFR ( Amer) > 60 (> 60) Est GFR (Non-Af Amer) > 60 (> 60) BUN/Creatinine Ratio 33 H (6-26) Glucose 675 H* (70-105) mg/dL Calculated Osmolality 296 (280-300) Calcium 9.4 (8.6-10.3) mg/dL Beta-Hydroxybutyric Acd 1.47 H (0.02-0.27) mmol/L Urine Color (Yellow) Urine Clarity (Clear) Urine pH (5.0-8.0) pH Units Ur Specific [place] (1.010-1.025) Urine Protein (Neg-Trace) mg/dL Urine Glucose (UA) (Normal) mg/dL Urine Ketones (Negative) mg/dL Urine Blood (Negative) Urine Nitrite (Negative) Urine Bilirubin (Negative) Urine Urobilinogen (Normal) mg/dL Ur Leukocyte Esterase (Negative) Ur Culture Indicated? (NO) Salicylates < 2.5 L (15.0-30.0) mg/dL Acetaminophen < 10 L (10-20) mcg/mL Ur Drug Screen Interp Ethyl Alcohol < 10 (Less than 10) mg/dL 06/03/18 06/03/18 06/03/18 Range/Units 10:54 10:54 11:22 WBC (4.3-11.1) K/mcL RBC (4.19-5.50) M/mcL Hgb (12.9-16.9) g/dL Hct (37.5-50.1) % MCV (83.0-100.0) fL MCH (28.0-33.3) pg MCHC (31.6-35.5) g/dL RDW (11.5-14.5) % Plt Count (140-400) K/mcL MPV (9.4-12.4) fL Immature Gran % (0-4) % Seg Neutrophils % % Lymphocytes % % Monocytes % % Eosinophils % % Basophils % % Neutrophils # (1.6-8.9) K/mcL Lymphocytes # (0.6-4.6) K/mcL Monocytes # (0.0-1.3) K/mcL Eosinophils # (0.0-0.6) K/mcL Basophils # (0.0-0.2) K/mcL VBG pH 7.37 (7.32-7.42) pH Units VBG pCO2 51 (41-51) mmHg VBG pO2 69 H (25-50) mmHg VBG HCO3 29 H (21-27) mEq/L Sodium (136-145) mEq/L Potassium (3.5-5.1) mEq/L Chloride (98-107) mEq/L Carbon Dioxide (23-29) mEq/L BUN (6-20) mg/dL Creatinine (0.70-1.30) mg/dL Est GFR ( Amer) (> 60) Est GFR (Non-Af Amer) (> 60) BUN/Creatinine Ratio (6-26) Glucose (70-105) mg/dL Calculated Osmolality (280-300) Calcium (8.6-10.3) mg/dL Beta-Hydroxybutyric Acd (0.02-0.27) mmol/L Urine Color Yellow (Yellow) Urine Clarity Clear (Clear) Urine pH 6.5 (5.0-8.0) pH Units Ur Specific [place] > 1.030 H (1.010-1.025) Urine Protein Negative (Neg-Trace) mg/dL Urine Glucose (UA) >=1000 H (Normal) mg/dL Urine Ketones Trace H (Negative) mg/dL Urine Blood Negative (Negative) Urine Nitrite Negative (Negative) Urine Bilirubin Negative (Negative) Urine Urobilinogen Normal (Normal) mg/dL Ur Leukocyte Esterase Negative (Negative) Ur Culture Indicated? NO (NO) Salicylates (15.0-30.0) mg/dL Acetaminophen (10-20) mcg/mL Ur Drug Screen Interp See Below Ethyl Alcohol (Less than 10) mg/dL
[2018-06-03] MEDS ORDERED: 0.9 % Sodium Chloride 1,000 ML IVC ONE (10:22)
[2018-06-03 10:28] LABS: Basophils % 0.4 %; Eosinophils # 0.1 K/mcL (0.0-0.6); Eosinophils % 0.9 %; Hematocrit 38.8 % (37.5-50.1); Hemoglobin 13.2 g/dL (12.9-16.9); Immature Granulocytes % 0.6 % (0-4); Lymphocytes # 1.5 K/mcL (0.6-4.6); Mean Corpuscular Hemoglobin 29.2 pg (28.0-33.3); Mean Corpuscular Volume 85.8 fL (83.0-100.0); Mean Platelet Volume 9.4 fL (9.4-12.4); Monocytes # 0.7 K/mcL (0.0-1.3); Monocytes % 6.5 %; Neutrophils # 8.4 K/mcL (1.6-8.9); Platelet Count 276 K/mcL (140-400); Red Blood Count 4.52 M/mcL (4.19-5.50); Red Cell Distribution Width 13.4 % (11.5-14.5); Segmented Neutrophils % 77.6 %
[2018-06-03 10:50] LABS: Acetaminophen < 10 mcg/mL (10-20); BUN/Creatinine Ratio 33 (6-26); Blood Urea Nitrogen 24 mg/dL (6-20); Calcium 9.4 mg/dL (8.6-10.3); Carbon Dioxide 25 mEq/L (23-29); Chloride 91 mEq/L (98-107); Ethanol < 10 mg/dL (Less than 10); Glucose 675 mg/dL (70-105); Osmolality,Calculated 296 (280-300); Potassium 4.7 mEq/L (3.5-5.1); Salicylate < 2.5 mg/dL (15.0-30.0); Sodium 125 mEq/L (136-145); eGFR For African Americans > 60 (> 60); eGFR For Non-African Americans > 60 (> 60)
[2018-06-03] MEDS ORDERED: *HR* Dextrose 50 % in Water (Syg) 50 ML SYRINGE IVP PRN ×2 (10:59→14:40)
[2018-06-03] MEDS ORDERED: Insulin Human Regular 100 UNIT in 0.9 % Sodium Chloride 100 ML IVC SCH (11:00)
[2018-06-03 11:03] LABS: Bilirubin,Urine Negative (Negative); Blood,Urine Negative (Negative); Clarity,Urine Clear (Clear); Color,Urine Yellow (Yellow); Glucose,Urine (UA) >=1000 mg/dL (Normal); Ketones,Urine Trace mg/dL (Negative); Leukocyte Esterase,Urine Negative (Negative); Nitrite,Urine Negative (Negative); PH,Urine 6.5 pH Units (5.0-8.0); Protein,Urine Negative (Neg-Trace); Specific Gravity,Urine > 1.030 (1.010-1.025); Urobilinogen,Urine Normal (Normal)
[2018-06-03 11:24] LABS: VBG HCO3 29 mEq/L (21-27); VBG PCO2 51 mmHg (41-51); VBG PH 7.37 pH Units (7.32-7.42); VBG PO2 69 mmHg (25-50)
[2018-06-03] MEDS ORDERED: Naloxone 0.4 MG/ML INJ IVP PRN (11:54)
[2018-06-03 12:08] LABS: Alanine Aminotransferase 77 Units/L (7-52); Albumin/Globulin Ratio 1.7 (1.1-2.2); Alkaline Phosphatase 124 Units/L (34-104); Aspartate Amino Transferase 60 Units/L (13-39); Bilirubin,Direct 0.1 mg/dL (0.0-0.2); Bilirubin,Indirect 0.2 mg/dL (0.0-1.2); Bilirubin,Total 0.3 mg/dL (0.3-1.0); Globulin 2.4 g/dL (2.4-3.5); Total Protein 6.4 g/dL (6.4-8.9)
--- NOTE | 2018-06-03 12:25 | Internal Med History&Physical ---
Date of Encounter: 06/03/18 Time of Encounter: 12:25 Internal Medicine - H&P: HPI Chief complaint: Suicidal ideation, elevated blood sugar at home History of present illness: Mr. Lemus is a 32 year old male with pmh of poorly controlled diabetes with non compliance, suicidal ideation who was recently discharged from the hospital yesterday for similar complaints came in with complaints of my blood sugar was high and I want to hurt myself and I need to speak with mental health. Patient admits to nausea but denies any other acute symptoms such as fevers, chills or abdominal pain. Blood sugar was elevated at 675 in the ER and he was noted to have have hihg beta hydroxybutyric acid and he was started on insulin drip with DKA protocol Past Med Surg Social Fam HX - Past Medical History Medical history: diabetes, hepatitis, seizures, other Additional medical history: Hep C Psychiatric history: depression, previous psychiatric hospitalization - Past Surgical History Surgical History: orthopedic, other Additional surgical history: right ankle - Social History Smoking Status: Current every day smoker Smokeless Tobacco Status: No Alcohol use: rarely Drug use: opiates, marijuana, methamphetamine, IV Drug Use - Family History Father Family Member Ethnicity: Non- Living Status: Hx Family Cardiac Disorders: Yes (OR) Hx Family Endocrine Disorder: Yes (DM) Mother Family Member Ethnicity: Non- Living Status: Still Living Sister Family Member Ethnicity: Non- Living Status: Still Living Internal Medicine - H&P: Meds Gabapentin [Neurontin] 800 mg PO TID 20 Days #60 tablet 05/14/18 [Rx] Insulin LISPRO [HumaLOG] See Protocol SQ TIDAC #1 vial 05/14/18 [Rx] Quetiapine Fumarate [Seroquel] 300 mg PO HS #30 tablet 05/14/18 [Rx] Insulin Aspart Prot/Insuln Asp [Novolog Mix 70-30 Flexpen Syrn] 22 units SQ BID #2 insuln.pen 06/02/18 [Rx] Phenytoin ER [Dilantin ER] 100 mg PO TID #90 capsule 06/02/18 [Rx] Venlafaxine XR (24 HR) [Effexor Xr] 150 mg PO DAILY #30 cap.er.24h 06/02/18 [Rx] 3 Allergy/AdvReac Type Severity Reaction Status Date / Time insulin glargine Allergy Blister Verified 05/30/18 20:54 [From Lantus] diphenhydramine AdvReac Intermediate See Verified 05/30/18 20:54 [From Benadryl] Comments All Systems PM: A 10-system review of systems was performed and is negative for pertinent findings except as documented above in the HPI. - Constitutional Constitutional: no chills, no fever(s), no night sweats - EENT Eyes: no change in vision, no discharge, no pain, no photophobia Ears: no ear discharge, no ear pain, no tinnitus Nose, mouth and throat: no dysphagia, no nasal discharge, no neck pain, no sore throat - Cardiovascular Cardiovascular ROS IM: no chest pain, no diaphoresis, no dyspnea, no lightheadedness, no palpitations, no syncope - Respiratory Respiratory: no cough, no dyspnea, no wheezing, no excessive phlegm production - Gastrointestinal Gastrointestinal: nausea, no abdominal pain, no diarrhea, no hematemesis, no hematochezia, no melena, no vomiting - Musculoskeletal Musculoskeletal ROS IM: no numbness, no tingling - Integumentary Integumentary IM: no rash, no unusual bruising - Neurological Neurological ROS: no confusion, no convulsions, no focal weakness, no numbness, no tingling, no tremor(s) - Psychiatric Psychiatric: suicidal ideation - Hematologic/Lymphatic Hematologic/Lymphatic: no easy bruising - Constitutional Vitals: Temp Pulse Resp BP Pulse Ox 97.7 F 70 18 128/76 96 06/03/18 10:04 06/03/18 11:44 06/03/18 11:44 06/03/18 11:44 06/03/18 11:44 - Head Head exam: Present: atraumatic, normocephalic - Eye Eye exam: Present: PERRL, conjuntiva pink, sclera anicteric Pupils: Present: PERRL - Neck Neck exam general surgery: Present: supple, trachea midline. Absent: lymphadenopathy - Respiratory Respiratory exam: Present: CTAB. Absent: accessory muscle use, rales, rhonchi, wheezes - Cardiovascular Cardiovascular exam: Present: RRR, +S1, +S2. Absent: diastolic murmur, gallop, rubs, systolic murmur - GI/Abdominal GI/Abdominal exam: Present: normal bowel sounds, soft, no peritoneal signs. Absent: distended, tenderness - Extremities Exam Extremities exam: Present: warm, radial pulses palpable and symmetrical. Absent : calf tenderness, cyanotic, pedal edema - Neurological Exam Neurological exam: Present: CN II-XII intact, oriented X3, no focal deficits. Absent: pronater drift, facial droop, speech deficit - Skin Skin exam: Present: dry, intact Internal Med - H&P Results - Labs CBC & Chem 7: 06/03/18 10:17 06/03/18 10:17 Labs: Short CBC 06/03/18 Range/Units 10:17 WBC 10.8 D (4.3-11.1) K/mcL Hgb 13.2 (12.9-16.9) g/dL Hct 38.8 (37.5-50.1) % Plt Count 276 (140-400) K/mcL Neutrophils # 8.4 (1.6-8.9) K/mcL BMP 06/03/18 10:17 Sodium 125 L Potassium 4.7 Chloride 91 L Carbon Dioxide 25 BUN 24 H Creatinine 0.73 Glucose 675 H* Calcium 9.4 Liver Function 06/03/18 Range/Units 10:17 Total Bilirubin 0.3 (0.3-1.0) mg/dL Direct Bilirubin 0.1 (0.0-0.2) mg/dL AST 60 H (13-39) Units/L ALT 77 H (7-52) Units/L Alkaline Phosphatase 124 H (34-104) Units/L Albumin 4.0 (3.5-5.7) g/dL Urine 06/03/18 Range/Units 10:54 Urine Color Yellow (Yellow) Urine Clarity Clear (Clear) Urine pH 6.5 (5.0-8.0) pH Units Ur Specific [place] > 1.030 H (1.010-1.025) Urine Protein Negative (Neg-Trace) mg/dL Urine Glucose (UA) >=1000 H (Normal) mg/dL - ABG Interpretation ABG results: 06/03/18 11:22 VBG pH 7.37 VBG pCO2 51 VBG pO2 69 H VBG HCO3 29 H - Assessment and plan (1) Hyperglycemia Current Visit: Yes Status: Acute Assessment and plan: Uncontrolled hyperglycemia with high beta hydroxybutyric acid and impending DKA. Started on insulin drip with DKA protocol. Titrate off insulin drip and transition to subcu insulin as tolerated (2) Suicidal ideation Current Visit: Yes Status: Acute Assessment and plan: Psych consulted, plan to transfer to psych once medically stable. says he's tired of everyday life (3) DVT prophylaxis Current Visit: No Status: Acute Assessment and plan: heparin sc (4) Hyponatremia Current Visit: Yes Status: Acute Assessment and plan: On IV fluids. Also likely 2/2 to hyperglycemia (5) Seizures Current Visit: Yes Status: Acute Assessment and plan: Continue phenytoin - Time Spent With Patient Total time spent is greater than 50% in coordination of care (as documented) at patient's floor/unit and/or counseling patient:
[2018-06-03 12:40] LABS: Amphetamine Screen,Urine Negative ng/mL (Cutoff=1000); Barbiturate Screen,Urine Negative ng/mL (Cutoff=200); Benzodiazepines Screen,Urine Negative ng/mL (Cutoff=200); Cannabinoid Screen,Urine Negative ng/mL (Cutoff = 50); Cocaine Screen,Urine Negative ng/mL (Cutoff= 300); Opiate Screen,Urine Negative ng/mL (Cutoff=300); Phencyclidine Screen,Urine Negative ng/mL (Cutoff=25)
[2018-06-03] MEDS: 0.9 % Sodium Chloride 1,000 ML IVC SCH ×4 (13:43→23:18)
[2018-06-03] MEDS ORDERED: Insulin DETEMIR 100 UNIT/ML X5UNITS SQ ONE (14:16)
[2018-06-03] MEDS: Gabapentin 400 MG CAPSULE PO SCH ×2 (14:22→20:24)
[2018-06-03] MEDS ORDERED: Dextrose Gel 15 GM/37.5 ML TUBE PO PRN ×2 (14:40)
[2018-06-03] MEDS ORDERED: D5% in Water 1,000 ML IVC PRN (14:40)
[2018-06-03] MEDS: Insulin LISPRO 300 UNITS/3 ML VIAL SQ SCH ×2 (16:35→20:25)
[2018-06-03] MEDS: Ondansetron 4 MG/2 ML VIAL IVP SCH ×2 (18:19→23:19)
[2018-06-03] MEDS ORDERED: Insulin DETEMIR 100 UNIT/ML X5UNITS SQ SCH (21:00)
[2018-06-04] MEDS: Ondansetron 4 MG/2 ML VIAL IVP SCH ×3 (04:24→17:38)
[2018-06-04 05:36] LABS: Basophils % 0.6 %; Eosinophils # 0.2 K/mcL (0.0-0.6); Eosinophils % 3.4 %; Hematocrit 38.3 % (37.5-50.1); Hemoglobin 12.4 g/dL (12.9-16.9); Immature Granulocytes % 0.3 % (0-4); Lymphocytes # 2.7 K/mcL (0.6-4.6); Lymphocytes % 38.1 %; Mean Corpuscular HGB Conc 32.4 g/dL (31.6-35.5); Mean Corpuscular Hemoglobin 28.2 pg (28.0-33.3); Mean Platelet Volume 9.2 fL (9.4-12.4); Monocytes # 0.5 K/mcL (0.0-1.3); Monocytes % 6.5 %; Neutrophils # 3.6 K/mcL (1.6-8.9); Platelet Count 262 K/mcL (140-400); Red Cell Distribution Width 13.6 % (11.5-14.5); Segmented Neutrophils % 51.1 %
[2018-06-04 05:55] LABS: BUN/Creatinine Ratio 24 (6-26); Blood Urea Nitrogen 13 mg/dL (6-20); Calcium 9.1 mg/dL (8.6-10.3); Carbon Dioxide 28 mEq/L (23-29); Chloride 105 mEq/L (98-107); Glucose 120 mg/dL (70-105); Magnesium 1.7 mg/dL (1.6-2.6); Osmolality,Calculated 285 (280-300); Phosphorous 4.5 mg/dL (2.7-4.5); Potassium 4.3 mEq/L (3.5-5.1); Sodium 137 mEq/L (136-145); eGFR For African Americans > 60 (> 60); eGFR For Non-African Americans > 60 (> 60)
[2018-06-04] MEDS: Insulin LISPRO 300 UNITS/3 ML VIAL SQ SCH ×4 (08:14→21:14)
[2018-06-04] MEDS: Gabapentin 400 MG CAPSULE PO SCH ×3 (08:14→21:13)
[2018-06-04] MEDS: Venlafaxine XR (24 HR) 150 MG CAP.ER.24H PO SCH (08:14)
--- NOTE | 2018-06-04 13:26 | Consult Note ---
Date of Encounter: 06/04/18 Time of Encounter: 13:20 Assessment & Recommendation (1) Antisocial personality disorder Current visit: No Status: Chronic Assessment & Recommendation: Client was not actively suicidal or homicidal when speaking with this video game script writer. Claims he experiences both SI and HI "off and on." However, he seems to use SI and HI as a way to get what he wants. Today he wants to go to a facility in [place] called "[facility]." Recommend a social work referral to see if this is even an option for him. He described [facility] as a psych hospital but it may be more of a residential type setting that he could qualify for. At this point he does not seem to meet inpatient criteria. He was in a very jovial mood when speaking with this video game script writer and he showed no outward signs of depression. No evidence of a thought disorder. Primary diagnosis seems to be Antisocial Personality Disorder. Would not change medication regimen as medications are of limited usefulness in his case. History of Present Illness Requesting Physician: Glenroy Coughlin MD Reason for consult: suicidal ideation History of present illness: Mr. Lemus is a 32 year old male who was admitted secondary to elevated blood sugars and SI. Psych consulted due to SI. Today client grinned broadly when this video game script writer walked in the room. He was eating high carb snacks the entire time I was there-goldfish snack crackers and soda. He appeared to be in a good mood. He was joking and laughing. He did not evidence any signs of mood disturbance or psychosis. Client reported he gets SI "off and on." Also admitted to HI "off and on." Denied SI/HI at the exact moment I was interviewing him but reported he would likely develop both if discharged to the street. Stated he wanted to be admitted to a psych hospital in [place] called "[facility]." Adamant he would not consider anywhere else. Discussed having a high school social science teacher come and see him to discuss placement/housing options. Based on his presentation he really does not qualify for an inpatient admission anywhere. Client tends to endorse SI when it suits him and to get what he wants. Was not actively suicidal when speaking with this video game script writer. CC: Glenroy Coughlin MD Past Med Surg Social Fam HX - Past Medical History Medical history: diabetes, hepatitis, seizures, other - Past Psychiatric History Psychiatric history: Reports: previous psychiatric hospitalization Family psychiatric history: Unknown Family History of Suicide: Unknown - Past Surgical History Surgical History: orthopedic, other - Social History Smoking Status: Current every day smoker Smokeless Tobacco Status: No Alcohol use: rarely Drug use: opiates, marijuana, methamphetamine, IV Drug Use - Family History Father Family Member Ethnicity: Non- Living Status: Hx Family Cardiac Disorders: Yes (AL) Hx Family Endocrine Disorder: Yes (DM) Mother Family Member Ethnicity: Non- Living Status: Still Living Sister Family Member Ethnicity: Non- Living Status: Still Living Medications & Allergies Gabapentin [Neurontin] 800 mg PO TID 20 Days #60 tablet 05/14/18 [Rx] Insulin LISPRO [HumaLOG] See Protocol SQ TIDAC #1 vial 05/14/18 [Rx] Quetiapine Fumarate [Seroquel] 300 mg PO HS #30 tablet 05/14/18 [Rx] Insulin Aspart Prot/Insuln Asp [Novolog Mix 70-30 Flexpen Syrn] 22 units SQ BID #2 insuln.pen 06/02/18 [Rx] Phenytoin ER [Dilantin ER] 100 mg PO TID #90 capsule 06/02/18 [Rx] Venlafaxine XR (24 HR) [Effexor Xr] 150 mg PO DAILY #30 cap.er.24h 06/02/18 [Rx] 3 Allergy/AdvReac Type Severity Reaction Status Date / Time insulin glargine Allergy Blister Verified 05/30/18 20:54 [From Lantus] diphenhydramine AdvReac Intermediate See Verified 05/30/18 20:54 [From Benadryl] Comments Review of Systems Constitutional: Denies: fever, chills, weakness, weight change Eyes: Denies: eye pain, vision change Ears, Nose, Throat: Denies: ear pain, throat pain, dental pain, hearing loss, congestion Cardiovascular: Denies: chest pain, palpitations, dyspnea on exertion Respiratory: Denies: cough, dyspnea, wheezes Gastrointestinal: Denies: abdominal pain, nausea, vomiting, diarrhea, constipation Genitourinary male: Denies: urgency, dysuria, frequency, genital lesions Musculoskeletal: Denies: joint swelling, joint pain Integumentary: Denies: rash, lesions, pruritus Neurological: Denies: headache, weakness, numbness, memory loss Endocrine: Denies: fatigue, heat or cold intolerance Hematologic/Lymphatic: Denies: easy bruising, lymphadenopathy Allergic/Immunologic: Denies: urticaria, itchy eyes Psychiatry Exam - Constitutional Vitals: Temp Pulse Resp BP Pulse Ox 97.6 F 84 17 123/83 99 06/04/18 10:58 06/04/18 10:58 06/04/18 10:58 06/04/18 10:58 06/04/18 10:58 General appearance: age & developmentally appropriate, well-groomed, well- nourished - Musculoskeletal Gait: normal Station: relaxed Strength & Tone: normal for patient - Psychiatric Patient Orientation: Yes Person, Yes Time, Yes Place Level of alertness: Alert Behavior: calm, cooperative Psychomotor activity: Normal Eye Contact: Maintains Eye Contact Mood Description: Depressed Affect description: full range Speech Volume: Normal Speech pattern: normal rate, normal rhythm, normal tone, fluent, spontaneous Language & Vocabulary: consistent with education Thought Process: Linear, Goal Oriented Thought Content: No Suicidal ideation, No Homicidal ideation, No Overt delusions Perceptual Disturbances: No Auditory hallucinations, No Visual hallucinations Attention Span Ability: Capable of Focused Attention Memory Description: Grossly Intact Patient Reliability: Questionable Historian Fund of knowledge: Yes abstraction ability, Yes aware of current events Intelligence Estimate: Below Average Judgment: Limited Insight: Minimal Results - Labs Labs: Laboratory Last Values WBC 7.0 K/mcL (4.3-11.1) 06/04/18 05:13 RBC 4.40 M/mcL (4.19-5.50) 06/04/18 05:13 Hgb 12.4 g/dL (12.9-16.9) L 06/04/18 05:13 Hct 38.3 % (37.5-50.1) 06/04/18 05:13 MCV 87.0 fL (83.0-100.0) 06/04/18 05:13 MCH 28.2 pg (28.0-33.3) 06/04/18 05:13 MCHC 32.4 g/dL (31.6-35.5) 06/04/18 05:13 RDW 13.6 % (11.5-14.5) 06/04/18 05:13 Plt Count 262 K/mcL (140-400) 06/04/18 05:13 MPV 9.2 fL (9.4-12.4) L 06/04/18 05:13 Immature Gran % 0.3 % (0-4) 06/04/18 05:13 Seg Neutrophils % 51.1 % 06/04/18 05:13 Lymphocytes % 38.1 % 06/04/18 05:13 Monocytes % 6.5 % 06/04/18 05:13 Eosinophils % 3.4 % 06/04/18 05:13 Basophils % 0.6 % 06/04/18 05:13 Neutrophils # 3.6 K/mcL (1.6-8.9) 06/04/18 05:13 Lymphocytes # 2.7 K/mcL (0.6-4.6) 06/04/18 05:13 Monocytes # 0.5 K/mcL (0.0-1.3) 06/04/18 05:13 Eosinophils # 0.2 K/mcL (0.0-0.6) 06/04/18 05:13 Basophils # 0.0 K/mcL (0.0-0.2) 06/04/18 05:13 VBG pH 7.37 pH Units (7.32-7.42) 06/03/18 11:22 VBG pCO2 51 mmHg (41-51) 06/03/18 11:22 VBG pO2 69 mmHg (25-50) H 06/03/18 11:22 VBG HCO3 29 mEq/L (21-27) H 06/03/18 11:22 Sodium 137 mEq/L (136-145) D 06/04/18 05:13 Potassium 4.3 mEq/L (3.5-5.1) 06/04/18 05:13 Chloride 105 mEq/L (98-107) 06/04/18 05:13 Carbon Dioxide 28 mEq/L (23-29) 06/04/18 05:13 BUN 13 mg/dL (6-20) 06/04/18 05:13 Creatinine 0.55 mg/dL (0.70-1.30) L 06/04/18 05:13 Est GFR ( Amer) > 60 (> 60) 06/04/18 05:13 Est GFR (Non-Af Amer) > 60 (> 60) 06/04/18 05:13 BUN/Creatinine Ratio 24 (6-26) 06/04/18 05:13 Glucose 120 mg/dL (70-105) H 06/04/18 05:13 POC Glucose 388 mg/dL (70-99) H 06/03/18 13:04 Calculated Osmolality 285 (280-300) 06/04/18 05:13 Calcium 9.1 mg/dL (8.6-10.3) 06/04/18 05:13 Phosphorus 4.5 mg/dL (2.7-4.5) 06/04/18 05:13 Magnesium 1.7 mg/dL (1.6-2.6) 06/04/18 05:13 Total Bilirubin 0.3 mg/dL (0.3-1.0) 06/03/18 10:17 Direct Bilirubin 0.1 mg/dL (0.0-0.2) 06/03/18 10:17 Indirect Bilirubin 0.2 mg/dL (0.0-1.2) 06/03/18 10:17 AST 60 Units/L (13-39) H 06/03/18 10:17 ALT 77 Units/L (7-52) H 06/03/18 10:17 Alkaline Phosphatase 124 Units/L (34-104) H 06/03/18 10:17 Serum Total Protein 6.4 g/dL (6.4-8.9) 06/03/18 10:17 Albumin 4.0 g/dL (3.5-5.7) 06/03/18 10:17 Globulin 2.4 g/dL (2.4-3.5) 06/03/18 10:17 Albumin/Globulin Ratio 1.7 (1.1-2.2) 06/03/18 10:17 Beta-Hydroxybutyric Acd 1.47 mmol/L (0.02-0.27) H 06/03/18 10:17 Urine Color Yellow (Yellow) 06/03/18 10:54 Urine Clarity Clear (Clear) 06/03/18 10:54 Urine pH 6.5 pH Units (5.0-8.0) 06/03/18 10:54 Ur Specific [place] > 1.030 (1.010-1.025) H 06/03/18 10:54 Urine Protein Negative mg/dL (Neg-Trace) 06/03/18 10:54 Urine Glucose (UA) >=1000 mg/dL (Normal) H 06/03/18 10:54 Urine Ketones Trace mg/dL (Negative) H 06/03/18 10:54 Urine Blood Negative (Negative) 06/03/18 10:54 Urine Nitrite Negative (Negative) 06/03/18 10:54 Urine Bilirubin Negative (Negative) 06/03/18 10:54 Urine Urobilinogen Normal mg/dL (Normal) 06/03/18 10:54 Ur Leukocyte Esterase Negative (Negative) 06/03/18 10:54 Ur Culture Indicated? NO (NO) 06/03/18 10:54 Salicylates < 2.5 mg/dL (15.0-30.0) L 06/03/18 10:17 Urine Opiates Screen Negative ng/mL (Iuegcf=689) 06/03/18 10:54 Acetaminophen < 10 mcg/mL (10-20) L 06/03/18 10:17 Ur Barbiturates Screen Negative ng/mL (Almube=847) 06/03/18 10:54 Ur Phencyclidine Scrn Negative ng/mL (Cutoff=25) 06/03/18 10:54 Ur Amphetamines Screen Negative ng/mL (Ykdotw=0924) 06/03/18 10:54 U Benzodiazepines Scrn Negative ng/mL (Vqzcay=427) 06/03/18 10:54 Urine Cocaine Screen Negative ng/mL (Cutoff= 300) 06/03/18 10:54 U Marijuana (THC) Screen Negative ng/mL (Cutoff = 50) 06/03/18 10:54 Ur Drug Screen Interp See Below 06/03/18 10:54 Ethyl Alcohol < 10 mg/dL (Less than 10) 06/03/18 10:17 Consult Discharge Plan - Plan
--- NOTE | 2018-06-04 17:51 | Internal Med Progress Note ---
Date of Encounter: 06/04/18 Time of Encounter: 17:48 - Assessment and plan (1) DKA, type 1 Current Visit: Yes Status: Acute Assessment and plan: with hyperglycemia, due to noncompliance continue long acting insuin 20 units BID, and SSI Qualifiers: Diabetes mellitus complication detail: without coma Qualified Code(s): E10.10 - Type 1 diabetes mellitus with ketoacidosis without coma (2) Noncompliance with medications Current Visit: Yes Status: Chronic (3) Suicidal ideation Current Visit: Yes Status: Acute Assessment and plan: seen by psychiatriast. Patient does not meet inpatient psychiatry hospitalization criteria. Patient requests to go to [facility], we will consult social work. Per Note: No evidence of a thought disorder. Primary diagnosis seems to be Antisocial Personality Disorder. Would not change medication regimen as medications are of limited usefulness in his case. (4) Hyponatremia Current Visit: Yes Status: Acute Assessment and plan: pseudohyponatremia from uncontrolled DM, resolved (5) Seizures Current Visit: Yes Status: Acute Assessment and plan: continue dilantin - Time Spent With Patient Total time spent is greater than 50% in coordination of care (as documented) at patient's floor/unit and/or counseling patient: 25 - 35 minutes - Subjective Interval history: Mr. Lemus is a 32 year old male with pmh of poorly controlled diabetes with non compliance, suicidal ideation who was recently discharged from the hospital yesterday for similar complaints came in with complaints of my blood sugar was high and I want to hurt myself and I need to speak with mental health. Patient admits to nausea but denies any other acute symptoms such as fevers, chills or abdominal pain. Blood sugar was elevated at 675 in the ER and he was noted to have have hihg beta hydroxybutyric acid and he was started on insulin drip with DKA protocol. Patient is doing well, off drip, on SSI, will restart home long acting insulin His blood glucose level is liable - Constitutional Vitals: Temp Pulse Resp BP Pulse Ox 97.9 F 84 16 146/84 99 06/04/18 16:49 06/04/18 16:49 06/04/18 16:49 06/04/18 16:49 06/04/18 16:49 General appearance: Present: A&O X 3, no acute distress, answers questions appropriately Exam: CONSTITUTIONAL: patient appears as an age appropriate male in no acute distress. EYES Clear sclerae, bilateral pupils are equal, reactive to light. EMOI. RESPIRATORY: No accessory muscle use, bilateral clear to auscultation, no wheezing, no crackles/rales. CARDIOVASCULAR: Regular heart rate, normal S1 and S2, no murmurs GASTROINTESTINAL: bowel sounds present, soft, no tenderness. MUSCULOSKELETAL: Joints in normal range of motion, no clubbing, no edema, no cyanosis. Bilateral peripheral pulses 2+. NEUROLOGIC: CN II to XII are grossly intact, no focal neurological deficit. Internal Medicine: Result - Labs CBC & Chem 7: 06/04/18 05:13 06/04/18 05:13 Labs: Short CBC 06/04/18 Range/Units 05:13 WBC 7.0 (4.3-11.1) K/mcL Hgb 12.4 L (12.9-16.9) g/dL Hct 38.3 (37.5-50.1) % Plt Count 262 (140-400) K/mcL Neutrophils # 3.6 (1.6-8.9) K/mcL BMP 06/04/18 05:13 Sodium 137 D Potassium 4.3 Chloride 105 Carbon Dioxide 28 BUN 13 Creatinine 0.55 L Glucose 120 H Calcium 9.1 Consult Discharge Plan - Plan Referrals: NONE,PCP [Primary Care Provider] -
[2018-06-04] MEDS: Insulin NPH/REG 70/30 100 UNIT/ML (x5UNIT) SQ SCH (21:14)
[2018-06-05] MEDS: Ondansetron 4 MG/2 ML VIAL IVP SCH ×4 (02:54→17:03)
[2018-06-05 04:30] LABS: BUN/Creatinine Ratio 36 (6-26); Blood Urea Nitrogen 25 mg/dL (6-20); Calcium 9.1 mg/dL (8.6-10.3); Carbon Dioxide 28 mEq/L (23-29); Chloride 96 mEq/L (98-107); Glucose 469 mg/dL (70-105); Magnesium 1.7 mg/dL (1.6-2.6); Osmolality,Calculated 295 (280-300); Potassium 4.4 mEq/L (3.5-5.1); Sodium 130 mEq/L (136-145); eGFR For African Americans > 60 (> 60); eGFR For Non-African Americans > 60 (> 60)
[2018-06-05] MEDS: Gabapentin 400 MG CAPSULE PO SCH ×3 (07:41→20:46)
[2018-06-05] MEDS: Insulin NPH/REG 70/30 100 UNIT/ML (x5UNIT) SQ SCH ×2 (07:41→17:03)
[2018-06-05] MEDS: Venlafaxine XR (24 HR) 150 MG CAP.ER.24H PO SCH (07:41)
[2018-06-05] MEDS: Insulin LISPRO 300 UNITS/3 ML VIAL SQ SCH ×4 (07:42→20:47)
[2018-06-05] MEDS: *HR* Heparin 5,000 UNIT/ML VIAL SQ SCH ×2 (14:56→20:47)
--- NOTE | 2018-06-05 14:57 | Electrocardiograph Report ---
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
--- NOTE | 2018-06-05 15:26 | Internal Med Progress Note ---
Date of Encounter: 06/05/18 Time of Encounter: 15:20 - Assessment and plan (1) DKA, type 1 Current Visit: Yes Status: Acute Assessment and plan: with hyperglycemia, due to noncompliance continue long acting 70/30 20 units BID, and increased SSI to high scale Qualifiers: Diabetes mellitus complication detail: without coma Qualified Code(s): E10.10 - Type 1 diabetes mellitus with ketoacidosis without coma (2) Noncompliance with medications Current Visit: Yes Status: Chronic (3) Suicidal ideation Current Visit: Yes Status: Acute Assessment and plan: continue having suicide ideation, I spoke to social work, social work is unable to find the nursing home for him due to his drug abuse history. Patient was given number to call [facility], but the patient got agitated and threatening to kill himself by not taking insulin. we will reconsult psychiatrist, continue sitter and the suicidal precaution (4) Hyponatremia Current Visit: Yes Status: Acute (5) Seizures Current Visit: Yes Status: Acute - Time Spent With Patient Total time spent is greater than 50% in coordination of care (as documented) at patient's floor/unit and/or counseling patient: - Subjective Interval history: Mr. Lemus is a 32 year old male with pmh of poorly controlled diabetes with non compliance, suicidal ideation who was recently discharged from the hospital yesterday for similar complaints came in with complaints of my blood sugar was high and I want to hurt myself and I need to speak with mental health. Patient admits to nausea but denies any other acute symptoms such as fevers, chills or abdominal pain. Blood sugar was elevated at 675 in the ER and he was noted to have have hihg beta hydroxybutyric acid and he was started on insulin drip with DKA protocol. Patient is doing well, off drip, on SSI, continue home long acting insulin 70/ 30 20 units BID His blood glucose level is liable, increased SSI to high dose patient was pink sliped on admission with sitter, yesterday psych was consulted , they did not think patient need inpatient treatment. This morning I spoke to the healthcare social worker patient requested to go to the [facility]. pier worker called [facility], they are in patient is psychiatric hospital. pier worker provided phone number for patient to call. After that the patient become agitated and he is threatening and stats he is not going to take insulin, he is going to kill himself. I am unalbe to discharge the patient , will re-consult psychiatrist. - Constitutional Vitals: Temp Pulse Resp BP Pulse Ox 97.8 F 91 19 121/76 97 06/05/18 11:00 06/05/18 11:00 06/05/18 11:00 06/05/18 11:00 06/05/18 11:00 General appearance: Present: A&O X 3, no acute distress, answers questions appropriately Exam: CONSTITUTIONAL: patient appears as an age appropriate male in no acute distress. EYES Clear sclerae, bilateral pupils are equal, reactive to light. EMOI. RESPIRATORY: No accessory muscle use, bilateral clear to auscultation, no wheezing, no crackles/rales. CARDIOVASCULAR: Regular heart rate, normal S1 and S2, no murmurs GASTROINTESTINAL: bowel sounds present, soft, no tenderness. MUSCULOSKELETAL: Joints in normal range of motion, no clubbing, no edema, no cyanosis. Bilateral peripheral pulses 2+. NEUROLOGIC: CN II to XII are grossly intact, no focal neurological deficit. Internal Medicine: Result - Labs CBC & Chem 7: 06/04/18 05:13 06/05/18 03:46 Labs: BMP 06/05/18 03:46 Sodium 130 L Potassium 4.4 Chloride 96 L Carbon Dioxide 28 BUN 25 H Creatinine 0.69 L Glucose 469 H Calcium 9.1 Consult Discharge Plan - Plan Referrals: NONE,PCP [Primary Care Provider] -
[2018-06-06] MEDS: Ondansetron 4 MG/2 ML VIAL IVP SCH ×3 (00:14→11:37)
[2018-06-06] MEDS: *HR* Heparin 5,000 UNIT/ML VIAL SQ SCH ×3 (05:29→19:46)
[2018-06-06] MEDS: Venlafaxine XR (24 HR) 150 MG CAP.ER.24H PO SCH (08:09)
[2018-06-06] MEDS: Insulin NPH/REG 70/30 100 UNIT/ML (x5UNIT) SQ SCH ×2 (08:09→17:00)
[2018-06-06] MEDS: Gabapentin 400 MG CAPSULE PO SCH ×3 (08:09→19:45)
[2018-06-06] MEDS: Insulin LISPRO 300 UNITS/3 ML VIAL SQ SCH ×4 (08:10→19:40)
[2018-06-06] MEDS ORDERED: Ibuprofen 400 MG TABLET PO PRN (10:23)
[2018-06-06] MEDS ORDERED: Ondansetron 4 MG/2 ML VIAL IVP PRN (13:05)
--- NOTE | 2018-06-06 15:44 | Internal Med Progress Note ---
Date of Encounter: 06/06/18 Time of Encounter: 15:42 - Assessment and plan (1) Hyperglycemia Current Visit: Yes Status: Acute Assessment and plan: Still variable with some high readings in 300-400. Continue accuchecks and high dose SSI QID AC/HS. Increase home 70/30 insulin to 30 units BID. Recheck BMP in AM. (2) Suicidal ideation Current Visit: Yes Status: Acute Assessment and plan: Psychiatry reconsulted; appreciate input. Will await recommendations. DESMOND working on placement to [place] [facility] inpatient psychiatry. Continue 1-on-1 sitter for now. (3) Hyponatremia Current Visit: Yes Status: Acute Assessment and plan: Worsened. Will start fluid restriction to 2L/day. Recheck BMP in AM. (4) Seizures Current Visit: Yes Status: Chronic Assessment and plan: Continue home phenytoin. (5) Mood disorder Current Visit: Yes Status: Chronic Assessment and plan: Continue home medications. Psychiatry consulted as per above; will await recommendations. (6) DVT prophylaxis Current Visit: Yes Status: Acute Assessment and plan: Continue SQ heparin. - Time Spent With Patient Total time spent is greater than 50% in coordination of care (as documented) at patient's floor/unit and/or counseling patient: less than 15 minutes - Subjective Interval history: Patient had no acute events overnight. He states that he feels "fine" at this time. He states that he has SI/HI depending on if someone makes him "angry." He is not happy with fluid restriction, but will try to drink less in general. He denies fever, chills, chest pain, SOB, nausea, vomiting, or abdominal pain. He wants to go to [facility] for inpatient behavioral health treatment. He has some pain in bilateral feet that he describes as "numbness," and he wants to try naproxen for it. He has no other complaints at this time. - Constitutional Vitals: Temp Pulse Resp BP Pulse Ox 98.0 F 98 17 126/83 96 06/06/18 14:03 06/06/18 14:03 06/06/18 14:03 06/06/18 14:03 06/06/18 14:03 General appearance: Present: cooperative, A&O X 3, no acute distress, answers questions appropriately - Respiratory Respiratory exam: Present: CTAB. Absent: accessory muscle use, rales, rhonchi, wheezes Additional comments: Normal WOB - Cardiovascular Cardiovascular exam: Present: RRR, +S1, +S2. Absent: diastolic murmur, gallop, rubs, systolic murmur Additional comments: No BLE edema - GI/Abdominal GI/Abdominal exam: Present: normal bowel sounds, soft. Absent: distended, hepatomegaly, mass, splenomegaly, tenderness - Psychiatric Psychiatric exam: Present: normal affect, normal mood. Absent: agitated, anxious, depressed - Skin Skin exam: Present: dry, intact, warm. Absent: cyanosis, rash Internal Medicine: Result - Labs CBC & Chem 7: 06/04/18 05:13 06/05/18 03:46 Consult Discharge Plan - Plan Referrals: Nicola Freed MD [Non-Partnered Physician] - 06/12/18 3:30 pm (Please show up 30 minutes early to fill out new patient paper work. This office does not give out controlled meds. Please take picture ID, Insurance cards with you to your appointment. Take a list of all medication with you to your appointment including over the counter medication. If you need to cancel please cancel 24 hours in advance at [phone])
--- NOTE | 2018-06-06 16:48 | Consult Note ---
Date of Encounter: 06/06/18 Time of Encounter: 16:00 Assessment & Recommendation (1) Other stimulant dependence, uncomplicated Current visit: Yes Status: Acute (2) Noncompliance with medications Current visit: Yes Status: Chronic (3) Suicidal ideation Current visit: No Status: Chronic (4) Major depressive disorder, recurrent severe without psychotic features Current visit: No Status: Chronic (5) Antisocial personality disorder Current visit: No Status: Chronic History of Present Illness Patient: known to practice within the last 3 years Requesting Physician: Glenroy Coughlin MD Reason for consult: Suicidal thinking History of present illness: Mr. Lemus is a 32 year old male The patient has been previously seen by me today the patient notes that his sugar is not doing well. The patient notes that he has been going through a lot and he thinks about suicide. He does do better with talking and he feels that going to a psychiatric hospital where he could talk things out what help he notes that in the past is been institutionalized in its difficult for him to live outside the confines of a structured environment. He notes that while in the hospital he is doing well talking to the sitter but his mind goes from place to place. The patient did not get his disability check and was told that it was suspended he did not get around to calling until the other day. He felt that he was not motivated. In other hospitals such as [facility] and the [facility] the patient is felt that he is gotten help meanwhile hospitals in [place] and specifically the local unit he feels that he has not gotten as much help. The patient is not participating in groups or taken action to help in his self- care in previous hospitalizations on this unit. . Thus the patient has requested to go to the [facility]. He may have some resources to do this or be able to locate in a [place] [facility]. He reports that some family or in [facility]. The patient patient feels that he needs his medicines adjusted and notes that he has been on Seroquel up to 900 mg. The patient is currently on Dilantin or phenytoin. This reduces the serum concentration of Seroquel or quetiapine because of a drug drug interaction. The patient is benefiting from the sitter he does not have a plan to harm himself while in the hospital CC: Glenroy Coughlin MD Past Med Surg Social Fam HX - Past Medical History Medical history: diabetes, hepatitis, seizures, other - Past Surgical History Surgical History: orthopedic, other - Social History Smoking Status: Current every day smoker Smokeless Tobacco Status: No Alcohol use: rarely Drug use: opiates, marijuana, methamphetamine, IV Drug Use - Family History Father Family Member Ethnicity: Non- Living Status: Hx Family Cardiac Disorders: Yes (SD) Hx Family Endocrine Disorder: Yes (DM) Mother Family Member Ethnicity: Non- Living Status: Still Living Sister Family Member Ethnicity: Non- Living Status: Still Living Medications & Allergies Gabapentin [Neurontin] 800 mg PO TID 20 Days #60 tablet 05/14/18 [Rx] Insulin LISPRO [HumaLOG] See Protocol SQ TIDAC #1 vial 05/14/18 [Rx] Quetiapine Fumarate [Seroquel] 300 mg PO HS #30 tablet 05/14/18 [Rx] Insulin Aspart Prot/Insuln Asp [Novolog Mix 70-30 Flexpen Syrn] 22 units SQ BID #2 insuln.pen 06/02/18 [Rx] Phenytoin ER [Dilantin ER] 100 mg PO TID #90 capsule 06/02/18 [Rx] Venlafaxine XR (24 HR) [Effexor Xr] 150 mg PO DAILY #30 cap.er.24h 06/02/18 [Rx] 3 Allergy/AdvReac Type Severity Reaction Status Date / Time insulin glargine Allergy Blister Verified 05/30/18 20:54 [From Lantus] diphenhydramine AdvReac Intermediate See Verified 05/30/18 20:54 [From Benadryl] Comments Review of Systems Psychiatric: Reports: depression, irritability Psychiatry Exam - Constitutional Vitals: Temp Pulse Resp BP Pulse Ox 98.0 F 98 17 126/83 96 06/06/18 14:03 06/06/18 14:03 06/06/18 14:03 06/06/18 14:03 06/06/18 14:03 General appearance: age & developmentally appropriate, well-groomed, well- nourished, thin - Musculoskeletal Strength & Tone: normal for patient - Psychiatric Patient Orientation: Yes Person, Yes Time, Yes Place Level of alertness: Alert Behavior: calm, cooperative Psychomotor activity: Normal Eye Contact: Maintains Eye Contact Mood Description: Euthymic/stable Affect description: congruent with mood, full range Speech Volume: Normal Speech pattern: normal rate, normal rhythm, normal tone, fluent, spontaneous Language & Vocabulary: consistent with education Thought Process: Linear, Goal Oriented Thought Content: Yes Suicidal ideation, No Homicidal ideation, No Overt delusions Perceptual Disturbances: No Auditory hallucinations, No Visual hallucinations Attention Span Ability: Capable of Focused Attention Memory Description: Grossly Intact Patient Reliability: Reliable Historian Fund of knowledge: Yes abstraction ability, Yes aware of current events Intelligence Estimate: Average Judgment: Fair Insight: Partial Results - Labs Labs: Laboratory Last Values WBC 7.0 K/mcL (4.3-11.1) 06/04/18 05:13 RBC 4.40 M/mcL (4.19-5.50) 06/04/18 05:13 Hgb 12.4 g/dL (12.9-16.9) L 06/04/18 05:13 Hct 38.3 % (37.5-50.1) 06/04/18 05:13 MCV 87.0 fL (83.0-100.0) 06/04/18 05:13 MCH 28.2 pg (28.0-33.3) 06/04/18 05:13 MCHC 32.4 g/dL (31.6-35.5) 06/04/18 05:13 RDW 13.6 % (11.5-14.5) 06/04/18 05:13 Plt Count 262 K/mcL (140-400) 06/04/18 05:13 MPV 9.2 fL (9.4-12.4) L 06/04/18 05:13 Immature Gran % 0.3 % (0-4) 06/04/18 05:13 Seg Neutrophils % 51.1 % 06/04/18 05:13 Lymphocytes % 38.1 % 06/04/18 05:13 Monocytes % 6.5 % 06/04/18 05:13 Eosinophils % 3.4 % 06/04/18 05:13 Basophils % 0.6 % 06/04/18 05:13 Neutrophils # 3.6 K/mcL (1.6-8.9) 06/04/18 05:13 Lymphocytes # 2.7 K/mcL (0.6-4.6) 06/04/18 05:13 Monocytes # 0.5 K/mcL (0.0-1.3) 06/04/18 05:13 Eosinophils # 0.2 K/mcL (0.0-0.6) 06/04/18 05:13 Basophils # 0.0 K/mcL (0.0-0.2) 06/04/18 05:13 VBG pH 7.37 pH Units (7.32-7.42) 06/03/18 11:22 VBG pCO2 51 mmHg (41-51) 06/03/18 11:22 VBG pO2 69 mmHg (25-50) H 06/03/18 11:22 VBG HCO3 29 mEq/L (21-27) H 06/03/18 11:22 Sodium 130 mEq/L (136-145) L 06/05/18 03:46 Potassium 4.4 mEq/L (3.5-5.1) 06/05/18 03:46 Chloride 96 mEq/L (98-107) L 06/05/18 03:46 Carbon Dioxide 28 mEq/L (23-29) 06/05/18 03:46 BUN 25 mg/dL (6-20) H 06/05/18 03:46 Creatinine 0.69 mg/dL (0.70-1.30) L 06/05/18 03:46 Est GFR ( Amer) > 60 (> 60) 06/05/18 03:46 Est GFR (Non-Af Amer) > 60 (> 60) 06/05/18 03:46 BUN/Creatinine Ratio 36 (6-26) H 06/05/18 03:46 Glucose 469 mg/dL (70-105) H 06/05/18 03:46 POC Glucose 218 mg/dL (70-99) H 06/05/18 19:57 Calculated Osmolality 295 (280-300) 06/05/18 03:46 Calcium 9.1 mg/dL (8.6-10.3) 06/05/18 03:46 Phosphorus 4.5 mg/dL (2.7-4.5) 06/04/18 05:13 Magnesium 1.7 mg/dL (1.6-2.6) 06/05/18 03:46 Total Bilirubin 0.3 mg/dL (0.3-1.0) 06/03/18 10:17 Direct Bilirubin 0.1 mg/dL (0.0-0.2) 06/03/18 10:17 Indirect Bilirubin 0.2 mg/dL (0.0-1.2) 06/03/18 10:17 AST 60 Units/L (13-39) H 06/03/18 10:17 ALT 77 Units/L (7-52) H 06/03/18 10:17 Alkaline Phosphatase 124 Units/L (34-104) H 06/03/18 10:17 Serum Total Protein 6.4 g/dL (6.4-8.9) 06/03/18 10:17 Albumin 4.0 g/dL (3.5-5.7) 06/03/18 10:17 Globulin 2.4 g/dL (2.4-3.5) 06/03/18 10:17 Albumin/Globulin Ratio 1.7 (1.1-2.2) 06/03/18 10:17 Beta-Hydroxybutyric Acd 1.47 mmol/L (0.02-0.27) H 06/03/18 10:17 Urine Color Yellow (Yellow) 06/03/18 10:54 Urine Clarity Clear (Clear) 06/03/18 10:54 Urine pH 6.5 pH Units (5.0-8.0) 06/03/18 10:54 Ur Specific [place] > 1.030 (1.010-1.025) H 06/03/18 10:54 Urine Protein Negative mg/dL (Neg-Trace) 06/03/18 10:54 Urine Glucose (UA) >=1000 mg/dL (Normal) H 06/03/18 10:54 Urine Ketones Trace mg/dL (Negative) H 06/03/18 10:54 Urine Blood Negative (Negative) 06/03/18 10:54 Urine Nitrite Negative (Negative) 06/03/18 10:54 Urine Bilirubin Negative (Negative) 06/03/18 10:54 Urine Urobilinogen Normal mg/dL (Normal) 06/03/18 10:54 Ur Leukocyte Esterase Negative (Negative) 06/03/18 10:54 Ur Culture Indicated? NO (NO) 06/03/18 10:54 Salicylates < 2.5 mg/dL (15.0-30.0) L 06/03/18 10:17 Urine Opiates Screen Negative ng/mL (Zehnyi=054) 06/03/18 10:54 Acetaminophen < 10 mcg/mL (10-20) L 06/03/18 10:17 Ur Barbiturates Screen Negative ng/mL (Dopvgk=002) 06/03/18 10:54 Ur Phencyclidine Scrn Negative ng/mL (Cutoff=25) 06/03/18 10:54 Ur Amphetamines Screen Negative ng/mL (Uedvwa=1884) 06/03/18 10:54 U Benzodiazepines Scrn Negative ng/mL (Ytkkgp=596) 06/03/18 10:54 Urine Cocaine Screen Negative ng/mL (Cutoff= 300) 06/03/18 10:54 U Marijuana (THC) Screen Negative ng/mL (Cutoff = 50) 06/03/18 10:54 Ur Drug Screen Interp See Below 06/03/18 10:54 Ethyl Alcohol < 10 mg/dL (Less than 10) 06/03/18 10:17 Consult Discharge Plan - Plan Referrals: Nicola Freed MD [Non-Partnered Physician] - 06/12/18 3:30 pm (Please show up 30 minutes early to fill out new patient paper work. This office does not give out controlled meds. Please take picture ID, Insurance cards with you to your appointment. Take a list of all medication with you to your appointment including over the counter medication. If you need to cancel please cancel 24 hours in advance at [phone])
[2018-06-07] MEDS: *HR* Heparin 5,000 UNIT/ML VIAL SQ SCH ×2 (04:47→15:05)
[2018-06-07 06:08] LABS: BUN/Creatinine Ratio 40 (6-26); Blood Urea Nitrogen 28 mg/dL (6-20); Calcium 8.9 mg/dL (8.6-10.3); Carbon Dioxide 26 mEq/L (23-29); Chloride 99 mEq/L (98-107); Glucose 431 mg/dL (70-105); Osmolality,Calculated 296 (280-300); Potassium 4.7 mEq/L (3.5-5.1); Sodium 131 mEq/L (136-145); eGFR For African Americans > 60 (> 60); eGFR For Non-African Americans > 60 (> 60)
[2018-06-07] MEDS: Venlafaxine XR (24 HR) 150 MG CAP.ER.24H PO SCH (08:41)
[2018-06-07] MEDS: Gabapentin 400 MG CAPSULE PO SCH ×3 (08:41→21:00)
[2018-06-07] MEDS: Insulin NPH/REG 70/30 100 UNIT/ML (x5UNIT) SQ SCH ×2 (08:42→16:42)
[2018-06-07] MEDS: Insulin LISPRO 300 UNITS/3 ML VIAL SQ SCH ×3 (08:42→21:01)
[2018-06-07] MEDS ORDERED: Insulin LISPRO 300 UNITS/3 ML VIAL SQ SCH (12:00)
--- NOTE | 2018-06-07 12:00 | Internal Med Progress Note ---
Date of Encounter: 06/07/18 Time of Encounter: 11:58 - Assessment and plan (1) Hyperglycemia Current Visit: Yes Status: Acute Assessment and plan: Worsened today; blood glucose in 400s this AM. Nursing staff notes he has been snacking all day. Will change accuchecks and high dose SSI to Q4H. Will increase home 70/30 insulin to 40 units BID. Recheck BMP in AM. (2) Suicidal ideation Current Visit: Yes Status: Acute Assessment and plan: Psychiatry reconsulted; appreciate input. They recommend either inpatient or outpatient psychiatric treatment per patient's preference; they do not see need for acute treatment in 1A. No medication changes made. Recommend keeping 1-on- 1 sitter. SW working on placement to [facility] inpatient psychiatry as patient's top preference; he is willing to go to [facility] outpatient if this is not possible. (3) Hyponatremia Current Visit: Yes Status: Acute Assessment and plan: Normalized after correction for worsening hyperglycemia today. Will keep fluid restriction to 2L/day for now. Recheck BMP in AM. (4) Seizures Current Visit: Yes Status: Chronic Assessment and plan: Continue home phenytoin. (5) Mood disorder Current Visit: Yes Status: Chronic Assessment and plan: Continue home medications. Psychiatry consulted as per above. Pharmacist verifying psychiatric medication doses with [facility], where he was previously hospitalized. (6) DVT prophylaxis Current Visit: Yes Status: Acute Assessment and plan: Continue SQ heparin. - Time Spent With Patient Total time spent is greater than 50% in coordination of care (as documented) at patient's floor/unit and/or counseling patient: less than 15 minutes - Subjective Interval history: Patient had no acute events overnight. He states that he is doing "good." He denies SI/HI at this time. He denies fever, chills, chest pain, SOB, nausea, vomiting, or abdominal pain. He still wants to go to [facility] for inpatient behavioral health treatment, but SW has not heard back from them. He is "OK" with going to [facility] for outpatient psychiatric treatment if unable to get inpatient. He has no other complaints at this time. - Constitutional Vitals: Temp Pulse Resp BP Pulse Ox 97.4 F L 69 18 116/70 95 06/07/18 08:08 06/07/18 08:51 06/07/18 08:08 06/07/18 08:08 06/07/18 08:08 General appearance: Present: cooperative, A&O X 3, no acute distress, answers questions appropriately - Respiratory Respiratory exam: Present: CTAB. Absent: accessory muscle use, rales, rhonchi, wheezes Additional comments: Normal WOB - Cardiovascular Cardiovascular exam: Present: RRR, +S1, +S2. Absent: diastolic murmur, gallop, rubs, systolic murmur Additional comments: No BLE edema - GI/Abdominal GI/Abdominal exam: Present: normal bowel sounds, soft. Absent: distended, hepatomegaly, mass, splenomegaly, tenderness - Psychiatric Psychiatric exam: Present: normal affect, normal mood. Absent: agitated, anxious, depressed - Skin Skin exam: Present: dry, intact, warm. Absent: cyanosis, rash Internal Medicine: Result - Labs CBC & Chem 7: 06/04/18 05:13 06/07/18 05:18 Labs: BMP 06/07/18 05:18 Sodium 131 L Potassium 4.7 Chloride 99 Carbon Dioxide 26 BUN 28 H Creatinine 0.70 Glucose 431 H Calcium 8.9 Consult Discharge Plan - Plan Referrals: Nicola Freed MD [Non-Partnered Physician] - 06/12/18 3:30 pm (Please show up 30 minutes early to fill out new patient paper work. This office does not give out controlled meds. Please take picture ID, Insurance cards with you to your appointment. Take a list of all medication with you to your appointment including over the counter medication. If you need to cancel please cancel 24 hours in advance at [phone])
[2018-06-07] MEDS ORDERED: hydrOXYzine pamoate 25 MG CAPSULE PO STA ×2 (12:57→13:18)
[2018-06-07] MEDS ORDERED: hydrOXYzine pamoate 25 MG CAPSULE PO PRN ×2 (12:57→15:00)
[2018-06-07] MEDS ORDERED: Naloxone 0.4 MG/ML INJ IVP PRN (13:18)
[2018-06-07] MEDS ORDERED: Dextrose Gel 15 GM/37.5 ML TUBE PO PRN ×2 (13:18)
[2018-06-07] MEDS ORDERED: D5% in Water 1,000 ML IVC PRN (13:18)
[2018-06-07] MEDS ORDERED: *HR* Dextrose 50 % in Water (Syg) 50 ML SYRINGE IVP PRN (13:18)
[2018-06-07] MEDS ORDERED: Ondansetron 4 MG/2 ML VIAL IVP PRN (13:18)
[2018-06-07] MEDS ORDERED: Insulin NPH/REG 70/30 100 UNIT/ML (x5UNIT) SQ SCH (16:30)
[2018-06-08] MEDS: *HR* Heparin 5,000 UNIT/ML VIAL SQ SCH ×2 (01:10→05:30)
[2018-06-08] MEDS: Insulin LISPRO 300 UNITS/3 ML VIAL SQ SCH ×4 (01:11→11:47)
[2018-06-08 06:07] LABS: BUN/Creatinine Ratio 37 (6-26); Blood Urea Nitrogen 28 mg/dL (6-20); Calcium 9.3 mg/dL (8.6-10.3); Carbon Dioxide 27 mEq/L (23-29); Chloride 99 mEq/L (98-107); Glucose 330 mg/dL (70-105); Osmolality,Calculated 294 (280-300); Potassium 4.5 mEq/L (3.5-5.1); Sodium 133 mEq/L (136-145); eGFR For African Americans > 60 (> 60); eGFR For Non-African Americans > 60 (> 60)
[2018-06-08] MEDS: Insulin NPH/REG 70/30 100 UNIT/ML (x5UNIT) SQ SCH (08:31)
[2018-06-08] MEDS: Gabapentin 400 MG CAPSULE PO SCH (08:31)
[2018-06-08] MEDS ORDERED: Venlafaxine XR (24 HR) 150 MG CAP.ER.24H PO SCH (09:00)
[2018-06-08 11:44] VITALS: BP 138/85
--- NOTE | 2018-06-08 12:17 | Discharge Summary ---
- NOTES TO OUTPATIENT PROVIDER Notes to Outpatient Provider: Follow up with new PCP Dr. Neil in 2-3 days after discharge. Recheck BMP at that time. Examine blood glucose log and make adjustments to insulin regimen at that time. Patient to call to make outpatient psychiatrist appointment at [facility]. Date of Encounter: 06/08/18 Time of Encounter: 12:14 - Discharge Diagnosis (1) Hyperglycemia Priority: Primary Status: Acute (2) Suicidal ideation Priority: Secondary Status: Acute (3) Hyponatremia Priority: Secondary Status: Resolved (4) Seizures Priority: Secondary Status: Chronic (5) Mood disorder Priority: Secondary Status: Chronic (6) DVT prophylaxis Priority: Secondary Status: Acute Hospital course: Mr. Lemus is a 32 year old male admitted for DKA and suicidal ideation. Patient was admitted to step down unit on insulin drip. One-on-one sitter was ordered. Psychiatry was consulted; they recommended either inpatient or outpatient psychiatric treatment per patient preference, but he did not need acute 1A treatment. was consulted as patient wanted inpatient psychiatric treatment in [place]. However, this facility did not have any openings. Patient did not want to go to outpatient "group" therapy. He was set up with outpatient psychiatric appointment at [facility]. As blood glucose improved , he was transitioned back to home 70/30 regimen. Dose had to be increased until blood glucose was 170 on day of discharge. Today, he is in good spirits and denies any SI/HI. He had some hyponatremia even after correction, and he was fluid restricted. Hyponatremia resolved. Sitter was discontinued and patient did well overnight. He will follow up with new PCP Dr. Neil in 2-3 days after discharge. BMP can be rechecked at that time. They can examine blood glucose log and make adjustments to insulin regimen at that time. Patient to call to make outpatient psychiatrist appointment at [facility]. I have given him 2 weeks of all of his medications at discharge today. Patient has met maximum benefit of this hospitalization and will be discharged home in stable condition. Discharge discussed with: patient, nurse, social work - Time Spent with Patient Total time spent providing and/or coordinating discharge services: Greater than 30 minutes - Discharge Medications Prescriptions: Gabapentin [Neurontin] 800 mg PO TID 14 Days #42 tablet Insulin Aspart Prot/Insuln Asp [Novolog Mix 70-30 Flexpen Syrn] 40 units SQ BID #4 insuln.pen Insulin LISPRO [HumaLOG] See Protocol SQ TIDAC #4 vial Phenytoin ER [Dilantin ER] 100 mg PO TID 14 Days #42 capsule Quetiapine Fumarate [Seroquel] 300 mg PO HS 14 Days #14 tablet Venlafaxine XR (24 HR) [Effexor Xr] 150 mg PO DAILY 14 Days #14 cap.er.24h Home Medications: Gabapentin [Neurontin] 800 mg PO TID 14 Days #42 tablet 06/08/18 [Rx] Insulin Aspart Prot/Insuln Asp [Novolog Mix 70-30 Flexpen Syrn] 40 units SQ BID #4 insuln.pen 06/08/18 [Rx] Insulin LISPRO [HumaLOG] See Protocol SQ TIDAC #4 vial 06/08/18 [Rx] Phenytoin ER [Dilantin ER] 100 mg PO TID 14 Days #42 capsule 06/08/18 [Rx] Quetiapine Fumarate [Seroquel] 300 mg PO HS 14 Days #14 tablet 06/08/18 [Rx] Venlafaxine XR (24 HR) [Effexor Xr] 150 mg PO DAILY 14 Days #14 cap.er.24h 06/08 [Rx] Allergies/Adverse Reactions: 3 Allergy/AdvReac Type Severity Reaction Status Date / Time insulin glargine Allergy Blister Verified 05/30/18 20:54 [From Lantus] diphenhydramine AdvReac Intermediate See Verified 05/30/18 20:54 [From Benadryl] Comments Date of admission: 06/03/18 12:26 Primary care physician: PCP NONE Consults: 06/03/18 14:02 Consult to [facility] [CONS] Routine Reason for SW Consult: SI with plan, pink slip, medications, homeless 06/05/18 15:26 Consult to Psychiatry [CONS] Routine Consulting Provider: Psychiatry [facility] Reason consult: Sitter/1:1 Amberley slip on chart Other reason and/or additional details: suicide Amberley Slip initiated date and time: on admission Time Notified: 15:27 Call Completed: Yes Discharging clinician: Philip Hanson Anticipated date of discharge: 06/08/18 - Constitutional Vitals: Temp Pulse Resp BP Pulse Ox 97.7 F 82 17 138/85 98 06/08/18 11:44 06/08/18 11:44 06/08/18 11:44 06/08/18 11:44 06/08/18 11:44 General appearance: Present: cooperative, A&O X 3, no acute distress, answers questions appropriately - Respiratory Respiratory exam: Present: CTAB. Absent: accessory muscle use, rales, rhonchi, wheezes Additional comments: Normal WOB - Cardiovascular Cardiovascular exam: Present: RRR, +S1, +S2. Absent: diastolic murmur, gallop, rubs, systolic murmur Additional comments: No BLE edema - GI/Abdominal GI/Abdominal exam: Present: normal bowel sounds, soft. Absent: distended, hepatomegaly, mass, splenomegaly, tenderness - Psychiatric Psychiatric exam: Present: normal affect, normal mood. Absent: agitated, anxious, depressed - Skin Skin exam: Present: dry, intact, warm. Absent: cyanosis, rash - Patient Status Disposition: Home, Self-Care Condition: Good Functional capacity at discharge: independent ambulation Overall status at discharge: patient is progressing back to baseline - Discharge Instructions Follow Up With: Nicola Freed MD [Non-Partnered Physician] - 06/12/18 3:30 pm (Please show up 30 minutes early to fill out new patient paper work. This office does not give out controlled meds. Please take picture ID, Insurance cards with you to your appointment. Take a list of all medication with you to your appointment including over the counter medication. If you need to cancel please cancel 24 hours in advance at [phone]) Forms: ED Satisfaction Letter, Work/School Release Additional Instructions: You have an Appointment with Faith Holt on June 16 at 2pm at [facility]. Follow up with new PCP Dr. Neil in 2-3 days after discharge. Recheck BMP at that time. Examine blood glucose log and make adjustments to insulin regimen at that time. Patient to call to make outpatient psychiatrist appointment at [facility]. - Diet and Activity Activity: resume usual activities as tolerated Diet: diabetic diet
== END 2018-06-08 13:22 | disposition home or self-care (01) | DRG 420 ==
LOC: EMEROO 10:03 → 2NNU 12:26 → SUATTDRO 12:26 → 2NNU 13:18 → 2ANU 06-07 13:55
PROVIDERS: ADMIT Student in an Organized Health Care Education/Training Program; ATTEND Hospitalist

== ENCOUNTER 2018-07-03 18:52 | Inpatient (IN) ==
[2018-07-03] MEDS ORDERED: Haloperidol Lactate 5 MG/ML VIAL IVP ONE (19:47)
[2018-07-03] MEDS ORDERED: Ondansetron 4 MG/2 ML VIAL IVP ONE (19:47)
[2018-07-03] MEDS ORDERED: 0.9 % Sodium Chloride 1,000 ML IVC ONE (19:47)
[2018-07-03 20:00] LABS: Bilirubin,Urine Negative (Negative); Blood,Urine Negative (Negative); Clarity,Urine Clear (Clear); Color,Urine Yellow (Yellow); Glucose,Urine (UA) >=1000 mg/dL (Normal); Ketones,Urine 80 mg/dL (Negative); Leukocyte Esterase,Urine Negative (Negative); Nitrite,Urine Negative (Negative); PH,Urine 6.5 pH Units (5.0-8.0); Protein,Urine Negative (Neg-Trace); Urobilinogen,Urine Normal (Normal)
--- NOTE | 2018-07-03 20:03 | Emergency Department Note ---
Disposition Clinical Impression: Hyperglycemia without ketosis Disposition: Admitted As Inpatient Condition: Good Referrals: NONE,PCP [Primary Care Provider] - Forms: ED Satisfaction Letter Time of Disposition: 22:03 General Adult HPI - General Chief complaint: ED Nausea/Vomiting/Diarrhea Stated complaint: N/V Time Seen by Provider: 07/03/18 19:03 Source: patient, family Limitations: no limitations Nursing Notes Reviewed: Yes Vital Signs Reviewed: Yes - History of Present Illness HPI Narrative: This is an uncooperative 32-year-old male who comes to the emergency department , having been seen here yesterday, reporting nausea vomiting and diarrhea. He also states his blood sugars quite elevated, but also states that he is taking his insulin consistently and then again the last time he took it was 6 years ago. He reports numerous episodes of vomiting but cannot or will not tell me how many episodes he has had. He reports numerous episodes of diarrhea but again will not tell me how many episodes. He has a somewhat belligerent attitude, and seems to have developed a reputation with staff here. He has a history of meth use, which may be complicating his situation. Pain Scale: 5 - Related Data Previous Rx's Medication Instructions Recorded Gabapentin [Neurontin] 800 mg PO TID 14 Days #42 tablet 06/08/18 Insulin Aspart Prot/Insuln Asp 40 units SQ BID #4 insuln.pen 06/08/18 [Novolog Mix 70-30 Flexpen Syrn] Insulin LISPRO [HumaLOG] See Protocol SQ TIDAC #4 vial 06/08/18 Phenytoin ER [Dilantin ER] 100 mg PO TID 14 Days #42 capsule 06/08/18 Quetiapine Fumarate [Seroquel] 300 mg PO HS 14 Days #14 tablet 06/08/18 Venlafaxine XR (24 HR) [Effexor Xr] 150 mg PO DAILY 14 Days #14 06/08/18 cap.er.24h Phenytoin ER [Dilantin ER] 100 mg PO TID 14 Days #42 capsule 07/03/18 Allergies Allergy/AdvReac Type Severity Reaction Status Date / Time insulin glargine Allergy Blister Verified 07/02/18 22:17 [From Lantus] diphenhydramine AdvReac Intermediate See Verified 07/02/18 22:17 [From Benadryl] Comments All systems ED: reviewed and negative except as stated. Constitutional: Denies: fever, chills, weakness, weight change Eyes: Denies: eye pain, eye discharge, vision change Cardiovascular: Denies: chest pain, palpitations, dyspnea on exertion, edema, syncope Respiratory: Denies: cough, dyspnea, wheezes, hemoptysis, stridor Gastrointestinal: Reports: nausea, vomiting, diarrhea Musculoskeletal: Denies: back pain, neck pain, arthralgia, myalgia Integumentary: Denies: rash, abrasion, lesions Neurological: Denies: headache, weakness, numbness, paresthesias, confusion, abnormal gait, vertigo Psychiatric: Denies: anxiety, depression, suicidal thoughts, homicidal thoughts , auditory hallucinations, visual hallucinations Endocrine: Denies: fatigue Hematological/Lymphatic: Denies: easy bleeding, easy bruising Past Medical History - Past Medical History Medical history: Reports: diabetes, hepatitis, seizures, other Surgical history: Reports: orthopedic, other Psychiatric history: Reports: anxiety, previous psychiatric hospitalization - Social History Smoking Status: Current every day smoker Smokeless Tobacco Status: No Alcohol use: Reports: rarely Drug use: Reports: opiates, marijuana, methamphetamine, IV Drug Use Physical Exam - General Limitations: no limitations General appearance: alert, in no apparent distress - Head Head exam: atraumatic, normocephalic, normal inspection - Eye Eye exam: Present: normal appearance, PERRL, EOMI - Neck Neck exam: Present: normal inspection, full ROM, trachea midline - Chest Chest inspection: Present: normal inspection, symmetric chest wall rise - Respiratory Respiratory exam: Present: normal lung sounds bilaterally - Cardiovascular Cardiovascular exam: Present: regular rate, normal rhythm, normal heart sounds - Abdominal Exam Abdominal exam: Present: soft, tenderness (Patient has minimal diffuse tenderness throughout the abdomen which appears to be likely histrionic) - Extremities Exam Extremities exam: Present: normal inspection, full ROM. Absent: tenderness, pedal edema - Neurological Exam Neurological exam: Present: alert, oriented X3, CN II-XII intact - Psychiatric Psychiatric exam: Present: other (Patient has a generally belligerent attitude and appears uncooperative.) Course Course Narrative: This is an uncooperative 32-year-old male with report of nausea vomiting and diarrhea as well as elevated glucose. He already declined treatment for hyperglycemia. Vital Signs Temperature 97.4 F L 07/03/18 19:08 Pulse Rate 97 07/03/18 19:08 Respiratory Rate 18 07/03/18 19:08 Blood Pressure 140/85 07/03/18 19:08 O2 Sat by Pulse Oximetry 99 07/03/18 19:08 Temperature 97.4 F L 07/03/18 19:26 Pulse Rate 97 07/03/18 19:26 Respiratory Rate 18 07/03/18 19:26 Blood Pressure 140/85 07/03/18 19:26 O2 Sat by Pulse Oximetry 99 07/03/18 19:26 Oxygen Delivery Oxygen Delivery Room Air Medical Decision Making - MDM Narrative Medical decision making narrative: This is a 32-year-old male who appears to have poorly controlled diabetes. IV fluid was given Ondansetron and haloperidol were given for nausea and vomiting He was started on insulin infusion Venous pH was ordered at the request of the hospitalist Additional IV fluid was started 200 mL per hour I discussed this case with the on-call hospitalist, who accepted him for admission - Lab Data Lab results narrative: CBC shows leukocytosis 11.2 BMP shows hyponatremia at 121, which corrects to 136 given his glucose at 1041, bicarbonate 16 UA showed glucose Result diagrams: 07/03/18 19:47 07/03/18 19:47 Lab Results 07/03/18 07/03/18 07/03/18 Range/Units 19:10 19:47 19:47 WBC 11.2 H D (4.3-11.1) K/mcL RBC 4.56 (4.19-5.50) M/mcL Hgb 12.9 (12.9-16.9) g/dL Hct 39.9 (37.5-50.1) % MCV 87.5 (83.0-100.0) fL MCH 28.3 (28.0-33.3) pg MCHC 32.3 (31.6-35.5) g/dL RDW 13.8 (11.5-14.5) % Plt Count 293 (140-400) K/mcL MPV 9.7 (9.4-12.4) fL Immature Gran % 0.5 (0-4) % Seg Neutrophils % 90.4 % Lymphocytes % 5.9 % Monocytes % 2.6 % Eosinophils % 0.2 % Basophils % 0.4 % Neutrophils # 10.1 H (1.6-8.9) K/mcL Lymphocytes # 0.7 (0.6-4.6) K/mcL Monocytes # 0.3 (0.0-1.3) K/mcL Eosinophils # 0.0 (0.0-0.6) K/mcL Basophils # 0.0 (0.0-0.2) K/mcL Sodium 121 L D (136-145) mEq/L Potassium 5.5 H D (3.5-5.1) mEq/L Chloride 86 L (98-107) mEq/L Carbon Dioxide 16 L (23-29) mEq/L BUN 20 (6-20) mg/dL Creatinine 0.94 (0.70-1.30) mg/dL Est GFR ( Amer) > 60 (> 60) Est GFR (Non-Af Amer) > 60 (> 60) BUN/Creatinine Ratio 21 (6-26) Glucose 1041 H* (70-105) mg/dL POC Glucose (70-99) mg/dL Calculated Osmolality 307 H (280-300) Calcium 9.3 (8.6-10.3) mg/dL Urine Color Yellow (Yellow) Urine Clarity Clear (Clear) Urine pH 6.5 (5.0-8.0) pH Units Ur Specific [place] 1.010 (1.010-1.025) Urine Protein Negative (Neg-Trace) mg/dL Urine Glucose (UA) >=1000 H (Normal) mg/dL Urine Ketones 80 H (Negative) mg/dL Urine Blood Negative (Negative) Urine Nitrite Negative (Negative) Urine Bilirubin Negative (Negative) Urine Urobilinogen Normal (Normal) mg/dL Ur Leukocyte Esterase Negative (Negative) Ur Culture Indicated? NO (NO) 07/03/18 07/03/18 Range/Units 21:41 21:42 WBC (4.3-11.1) K/mcL RBC (4.19-5.50) M/mcL Hgb (12.9-16.9) g/dL Hct (37.5-50.1) % MCV (83.0-100.0) fL MCH (28.0-33.3) pg MCHC (31.6-35.5) g/dL RDW (11.5-14.5) % Plt Count (140-400) K/mcL MPV (9.4-12.4) fL Immature Gran % (0-4) % Seg Neutrophils % % Lymphocytes % % Monocytes % % Eosinophils % % Basophils % % Neutrophils # (1.6-8.9) K/mcL Lymphocytes # (0.6-4.6) K/mcL Monocytes # (0.0-1.3) K/mcL Eosinophils # (0.0-0.6) K/mcL Basophils # (0.0-0.2) K/mcL Sodium (136-145) mEq/L Potassium (3.5-5.1) mEq/L Chloride (98-107) mEq/L Carbon Dioxide (23-29) mEq/L BUN (6-20) mg/dL Creatinine (0.70-1.30) mg/dL Est GFR ( Amer) (> 60) Est GFR (Non-Af Amer) (> 60) BUN/Creatinine Ratio (6-26) Glucose (70-105) mg/dL POC Glucose > 600 H* > 600 H* (70-99) mg/dL Calculated Osmolality (280-300) Calcium (8.6-10.3) mg/dL Urine Color (Yellow) Urine Clarity (Clear) Urine pH (5.0-8.0) pH Units Ur Specific [place] (1.010-1.025) Urine Protein (Neg-Trace) mg/dL Urine Glucose (UA) (Normal) mg/dL Urine Ketones (Negative) mg/dL Urine Blood (Negative) Urine Nitrite (Negative) Urine Bilirubin (Negative) Urine Urobilinogen (Normal) mg/dL Ur Leukocyte Esterase (Negative) Ur Culture Indicated? (NO) Critical Care Time Critical Care Time: Yes Total Critical Care Time: 25 Attestation: Critical care time was 25 minutes independent of separately billable procedures , involving patient evaluation, evaluation of laboratory tests, and discussion of treatment
[2018-07-03 20:35] LABS: Basophils % 0.4 %; Eosinophils % 0.2 %; Hematocrit 39.9 % (37.5-50.1); Hemoglobin 12.9 g/dL (12.9-16.9); Immature Granulocytes % 0.5 % (0-4); Lymphocytes # 0.7 K/mcL (0.6-4.6); Lymphocytes % 5.9 %; Mean Corpuscular HGB Conc 32.3 g/dL (31.6-35.5); Mean Corpuscular Hemoglobin 28.3 pg (28.0-33.3); Mean Corpuscular Volume 87.5 fL (83.0-100.0); Mean Platelet Volume 9.7 fL (9.4-12.4); Monocytes # 0.3 K/mcL (0.0-1.3); Monocytes % 2.6 %; Platelet Count 293 K/mcL (140-400); Red Blood Count 4.56 M/mcL (4.19-5.50); Red Cell Distribution Width 13.8 % (11.5-14.5); Segmented Neutrophils % 90.4 %
[2018-07-03 20:39] LABS: Neutrophils # 10.1 K/mcL (1.6-8.9)
[2018-07-03 21:12] LABS: Potassium 5.5 mEq/L (3.5-5.1)
[2018-07-03 21:13] LABS: BUN/Creatinine Ratio 21 (6-26); Blood Urea Nitrogen 20 mg/dL (6-20); Calcium 9.3 mg/dL (8.6-10.3); Carbon Dioxide 16 mEq/L (23-29); Chloride 86 mEq/L (98-107); Glucose 1041 mg/dL (70-105); Osmolality,Calculated 307 (280-300); Sodium 121 mEq/L (136-145); eGFR For Non-African Americans > 60 (> 60)
[2018-07-03] MEDS ORDERED: Insulin Human Regular 100 UNIT in 0.9 % Sodium Chloride 100 ML IVC SCH ×2 (21:45→23:45)
[2018-07-03] MEDS: 0.9 % Sodium Chloride 1,000 ML IVC SCH (22:22)
[2018-07-03] MEDS ORDERED: Ondansetron 4 MG/2 ML VIAL IVP PRN (23:27)
[2018-07-03] MEDS ORDERED: Insulin LISPRO 300 UNITS/3 ML VIAL SQ PRN (23:27)
[2018-07-03] MEDS ORDERED: Naloxone 0.4 MG/ML INJ IVP PRN ×2 (23:27)
[2018-07-03] MEDS ORDERED: OXYCODONE Oral CONC 10 MG/0.5 ML ORAL.SYG SL PRN (23:27)
[2018-07-03] MEDS ORDERED: D5% in 0.45% NACL w KCl 20 MEQ/1,000 ML MLS IVC PRN (23:27)
[2018-07-03] MEDS ORDERED: *HR* Dextrose 50 % in Water (Syg) 50 ML SYRINGE IVP PRN (23:27)
[2018-07-03] MEDS ORDERED: D5% in 0.45% NACL 1,000 ML IVC PRN (23:27)
--- NOTE | 2018-07-03 23:35 | Internal Med History&Physical ---
<Ronn Lewis - Last Filed: 07/03/18 23:40> Date of Encounter: 07/03/18 Time of Encounter: 23:34 Internal Medicine - H&P: HPI Chief complaint: nausea, vomiting, diarrhea Admitted From: Emergency Dept Plans for Post Hospital Care: Home History of present illness: Mr. Lemus is a 32 year old male with past medical history of diabetes, hepatitis, seizures, IV drug use including opiates, marijuana, methamphetamine presents emergency department with complaint of nausea, vomiting, diarrhea. He is notably seen in the emergency department yesterday as well as today with the same complaints however he refused hospital admission for hyperglycemia and DKA. He is a noted history of not being cooperative with medical staff and does not answer questions. He states that his blood sugars have been quite elevated and states that he has been taking his insulin consistently but per ED notes, the last 26 years ago. He has had numerous episodes of vomiting but will not say how many episodes. Vital signs in the emergency room significant for mild tachycardia 103, blood pressure 177/90. Laboratory results significant for mildly elevated to WBC 11.2 , sodium low at 121, potassium 5.5, chloride 86, bicarbonate 16 with an anion gap of 19. Glucose was elevated at 1041 and greater than 600 on Accu-Cheks. Osmolality was 307. He was agreeable to admission on this visit however continues to be agitated and aggressive and hostile with staff. He was given a 2 L normal saline bolus in the emergency department started on insulin drip. Upon arrival to the intensive care unit, patient was notably refusing blood sugar draws and we discussed the importance of these and that we cannot treat him out with an insulin drip if he is refusing blood sugars. He states that he will agree to blood sugar draws for now. Past Med Surg Social Fam HX - Past Medical History Medical history: diabetes, hepatitis, seizures, other Additional medical history: Hep C Psychiatric history: anxiety, previous psychiatric hospitalization - Past Surgical History Surgical History: orthopedic, other Additional surgical history: right ankle - Social History Smoking Status: Current every day smoker Smokeless Tobacco Status: No Alcohol use: rarely Drug use: opiates, marijuana, methamphetamine, IV Drug Use - Family History Father Family Member Ethnicity: Non- Living Status: Hx Family Cardiac Disorders: Yes (RI) Hx Family Endocrine Disorder: Yes (DM) Mother Family Member Ethnicity: Non- Living Status: Still Living Sister Family Member Ethnicity: Non- Living Status: Still Living Internal Medicine - H&P: Meds Gabapentin [Neurontin] 800 mg PO TID 14 Days #42 tablet 06/08/18 [Rx] Insulin Aspart Prot/Insuln Asp [Novolog Mix 70-30 Flexpen Syrn] 40 units SQ BID #4 insuln.pen 06/08/18 [Rx] Insulin LISPRO [HumaLOG] See Protocol SQ TIDAC #4 vial 06/08/18 [Rx] Venlafaxine XR (24 HR) [Effexor Xr] 150 mg PO DAILY 14 Days #14 cap.er.24h 06/08 [Rx] Phenytoin ER [Dilantin ER] 100 mg PO TID 14 Days #42 capsule 07/03/18 [Rx] 3 Allergy/AdvReac Type Severity Reaction Status Date / Time insulin glargine Allergy Blister Verified 07/02/18 22:17 [From Lantus] diphenhydramine AdvReac Intermediate See Verified 07/02/18 22:17 [From Benadryl] Comments ROS unobtainable: due to mental status, other (Patient refusal) All Systems PM: A 10-system review of systems was performed and is negative for pertinent findings except as documented above in the HPI. - Constitutional Vitals: Temp Pulse Resp BP Pulse Ox 97.4 F L 100 16 151/99 97 07/03/18 19:26 07/03/18 23:01 07/03/18 23:01 07/03/18 23:01 07/03/18 23:01 Exam: Gen.: Vitals noted. No acute distress. Limited due to patient cooperation HEENT: Refused open eyes, oropharynx clear, Normocephalic, atraumatic. Dry mucous membranes Cardiac: RRR, no murmur, +S1/S2 Pulmonary: CTA bilaterally, no wheezes, rales or rhonchi, equal chest expansion Abdomen: soft, nontender, BS noted, no guarding Extremities: no BLE edema, nontender calf, no cyanosis or clubbing Neuro: A&Ox3, moves all extremities, limited due to cooperation Psych: Aggressive to staff Internal Med - H&P Results - Labs CBC & Chem 7: 07/03/18 19:47 07/03/18 19:47 - Assessment and plan (1) DKA, type 1 Current Visit: Yes Status: Acute Assessment and plan: History of poorly controlled type 1 diabetes mellitus Most recent A1c of 10.8% on 05/13/18 Upon presentation, glucose was managed with 1041 with anion gap of 19 Beta hydroxybutyric acid elevated 2 days ago but within normal limits early this morning at 0.16 Patient reports nausea, vomiting, diarrhea, abdominal pain which is likely related to DKA Received 2 L normal saline in emergency department, started on insulin drip Inciting injury unknown at this time as patient is refusing to answer questions , chest x-ray within normal limits Vitals stable, WBC 11.2 which is likely hemoconcentrated secondary dehydration Plan Continue insulin drip, DKA protocol Nothing by mouth Fluids per DKA protocol Potassium mildly elevated at 5.5, repeat BMP pending Every hour blood sugar checks, every 2 hours BMPs Qualifiers: Diabetes mellitus complication detail: without coma Qualified Code(s): E10.10 - Type 1 diabetes mellitus with ketoacidosis without coma (2) Noncompliance with medications Current Visit: Yes Status: Chronic Assessment and plan: Per chart review, patient reports noncompliance and continues to abuse IV drugs including methamphetamines, opiates Possible inciting factors noncompliance with a DKA (3) IV drug abuse Current Visit: Yes Status: Chronic Assessment and plan: Patient reported to the ED physician that he has been on a 3 day villalobos for methamphetamine may be contributing to his ketosis and ketoacidosis No urinary drug screen obtained, patient refusing at this time We will continue monitor for signs and symptoms of withdrawal We will attempt a to drug and alcohol counselor patient on cessation (4) Nausea & vomiting Current Visit: Yes Status: Acute Assessment and plan: As above for DKA We will treat symptomatically with Zofran Qualifiers: Vomiting type: cyclical vomiting Vomiting Intractability: non-intractable Qualified Code(s): G43.A0 - Cyclical vomiting, not intractable (5) Hepatitis C Current Visit: Yes Status: Chronic Assessment and plan: Chronic hep C, likely were secondary to IV drug use Qualifiers: Viral hepatitis chronicity: chronic Hepatic coma status: without hepatic coma Qualified Code(s): B18.2 - Chronic viral hepatitis C (6) History of seizures Current Visit: Yes Status: Chronic Assessment and plan: We will continue home medications (7) Tobacco abuse Current Visit: Yes Status: Chronic (8) DVT prophylaxis Current Visit: Yes Status: Acute Assessment and plan: Heparin 5000 units every 12 hours (9) Hyponatremia Current Visit: Yes Status: Chronic Assessment and plan: Sodium moderately low at 121 on admission Per chart review, patient does run chronically low in the 120s to low 130s Possibly secondary to SIADH, pulmonary disease, poor solute intake, medication side effect We will monitor as we are giving copious amounts of saline for DKA protocol as above - Time Spent With Patient Total time spent is greater than 50% in coordination of care (as documented) at patient's floor/unit and/or counseling patient: <Germain Malhotra - Last Filed: 07/04/18 02:42> Date of Encounter: 07/04/18 Internal Medicine - H&P: HPI History of present illness: Mr. Lemus is a 32 year old male All Systems PM: A 10-system review of systems was performed and is negative for pertinent findings except as documented above in the HPI. - Constitutional Vitals: Temp Pulse Resp BP Pulse Ox 97.5 F L 87 16 138/80 98 07/04/18 00:00 07/04/18 02:00 07/04/18 02:00 07/04/18 00:00 07/04/18 02:00 Internal Med - H&P Results - Labs CBC & Chem 7: 07/03/18 19:47 07/04/18 01:22 Labs: BMP 07/03/18 07/04/18 23:54 01:22 Sodium 121 L Potassium 3.9 D Chloride 95 L Carbon Dioxide 14 L BUN 22 H Creatinine 0.90 Glucose 749 H* 487 H Calcium 8.9 - Attending Attestation John Lemus is a 32-year-old male with a history of poorly controlled insulin-dependent diabetes and illicit drug abuse who presents in a state of DKA after being in an emergency room twice over the last 24 hours where he refuses admission. The glucose level over 1000, acidosis and ketonuria. He was notably somnolent on my examination and refused thorough assessment and became verbally abusive to the nurses. Gross physical exam was not markable for any positive findings other than mild epigastric pain and deep palpation. We will place him on DKA protocol with aggressive IV fluid resuscitation, insulin drip and electrolyte correction. Bridge with subcutaneous insulin once anion gap is closed and able to tolerate by mouth. No signs of infection present and likely caused by non-adherence to therapy. Hep C can be managed as an outpatient. Rest of plan per resident's note. - Assessment and plan (1) DKA, type 1 Current Visit: Yes Status: Acute Qualifiers: Diabetes mellitus complication detail: without coma Qualified Code(s): E10.10 - Type 1 diabetes mellitus with ketoacidosis without coma (2) Noncompliance with medications Current Visit: Yes Status: Chronic (3) IV drug abuse Current Visit: Yes Status: Chronic (4) Nausea & vomiting Current Visit: Yes Status: Acute Qualifiers: Vomiting type: cyclical vomiting Vomiting Intractability: non-intractable Qualified Code(s): G43.A0 - Cyclical vomiting, not intractable (5) Hepatitis C Current Visit: Yes Status: Chronic Qualifiers: Viral hepatitis chronicity: chronic Hepatic coma status: without hepatic coma Qualified Code(s): B18.2 - Chronic viral hepatitis C (6) History of seizures Current Visit: Yes Status: Chronic (7) Tobacco abuse Current Visit: Yes Status: Chronic (8) DVT prophylaxis Current Visit: Yes Status: Acute (9) Hyponatremia Current Visit: Yes Status: Chronic - Time Spent With Patient Total time spent is greater than 50% in coordination of care (as documented) at patient's floor/unit and/or counseling patient:
[2018-07-04 01:00] LABS: BUN/Creatinine Ratio 24 (6-26); Blood Urea Nitrogen 22 mg/dL (6-20); Calcium 8.9 mg/dL (8.6-10.3); Carbon Dioxide 14 mEq/L (23-29); Chloride 95 mEq/L (98-107); Glucose 749 mg/dL (70-105); Osmolality,Calculated 291 (280-300); Potassium 3.9 mEq/L (3.5-5.1); Sodium 121 mEq/L (136-145); eGFR For Non-African Americans > 60 (> 60)
[2018-07-04] MEDS: 0.9 % Sodium Chloride w KCl 20 MEQ/1,000 ML MLS IVC SCH ×2 (01:11→05:34)
[2018-07-04] MEDS: 0.9 % Sodium Chloride 1,000 ML IVC SCH (04:12)
[2018-07-04 04:14] LABS: BUN/Creatinine Ratio 27 (6-26); Blood Urea Nitrogen 16 mg/dL (6-20); Calcium 8.8 mg/dL (8.6-10.3); Carbon Dioxide 22 mEq/L (23-29); Chloride 100 mEq/L (98-107); Glucose 288 mg/dL (70-105); Osmolality,Calculated 282 (280-300); Potassium 3.9 mEq/L (3.5-5.1); Sodium 130 mEq/L (136-145); eGFR For Non-African Americans > 60 (> 60)
[2018-07-04 05:43] LABS: BUN/Creatinine Ratio 21 (6-26); Blood Urea Nitrogen 13 mg/dL (6-20); Calcium 8.7 mg/dL (8.6-10.3); Carbon Dioxide 22 mEq/L (23-29); Chloride 106 mEq/L (98-107); Glucose 208 mg/dL (70-105); Osmolality,Calculated 282 (280-300); Potassium 3.9 mEq/L (3.5-5.1); Sodium 133 mEq/L (136-145); eGFR For Non-African Americans > 60 (> 60)
[2018-07-04] MEDS ORDERED: Insulin DETEMIR 100 UNIT/ML X5UNITS SQ ONE (05:47)
[2018-07-04] MEDS ORDERED: *HR* Heparin 5,000 UNIT/ML VIAL SQ SCH (06:00)
[2018-07-04 07:34] LABS: BUN/Creatinine Ratio 20 (6-26); Blood Urea Nitrogen 12 mg/dL (6-20); Calcium 8.6 mg/dL (8.6-10.3); Carbon Dioxide 23 mEq/L (23-29); Chloride 107 mEq/L (98-107); Glucose 142 mg/dL (70-105); Osmolality,Calculated 282 (280-300); Potassium 3.7 mEq/L (3.5-5.1); Sodium 135 mEq/L (136-145); eGFR For Non-African Americans > 60 (> 60)
[2018-07-04] MEDS ORDERED: D5% in Water 1,000 ML IVC PRN ×2 (08:47→11:54)
[2018-07-04] MEDS ORDERED: *HR* Dextrose 50 % in Water (Syg) 50 ML SYRINGE IVP PRN ×2 (08:47→11:54)
[2018-07-04] MEDS ORDERED: Dextrose Gel 15 GM/37.5 ML TUBE PO PRN ×4 (08:47→11:54)
[2018-07-04] MEDS ORDERED: Gabapentin 400 MG CAPSULE PO SCH (09:00)
[2018-07-04] MEDS ORDERED: Venlafaxine XR (24 HR) 150 MG CAP.ER.24H PO SCH (09:00)
--- NOTE | 2018-07-04 09:24 | Internal Med Progress Note ---
Hospitalist Progress Note - Encounter Date of Encounter: 07/04/18 Time of Encounter: 09:21 - Subjective Interval History: Patient had no acute events overnight after admission. He is still quite somnolent, but easy to arouse and converses appropriately. He denies fever, chills, chest pain, SOB, nausea, vomiting, and abdominal pain. He has no complaints at this time. - Exam Vitals: Temp Pulse Resp BP Pulse Ox 98.2 F 87 16 139/83 98 07/04/18 08:00 07/04/18 08:00 07/04/18 08:00 07/04/18 08:00 07/04/18 08:00 Exam: Gen - Somnolent but easy to arouse, no acute distress HEENT - NCAT, PERRLA, EOMI, hearing grossly intact, oropharynx benign CV - RRR, normal S1 and S2, no M/R/G, no BLE edema Resp - Normal WOB, CTAB, no W/R/R GI - Soft, NT/ND, no masses, normal bowel sounds, no HSP Skin - Warm, dry, no rashes/lesions/ulcers Psych - Normal mood and affect, no depression or anxiety - Assessment and Plan (1) DKA, type 1 Current Visit: Yes Status: Acute Assessment and Plan: History of poorly controlled type 1 diabetes mellitus Most recent A1c of 10.8% on 05/13/18 Upon presentation, glucose was managed with 1041 with anion gap of 19 Beta hydroxybutyric acid elevated 2 days ago but within normal limits early this morning at 0.16 Patient reports nausea, vomiting, diarrhea, abdominal pain which is likely related to DKA Received 2 L normal saline in emergency department, started on insulin drip Inciting injury unknown at this time as patient is refusing to answer questions , chest x-ray within normal limits Vitals stable, WBC 11.2 which is likely hemoconcentrated secondary dehydration Plan Continue insulin drip, DKA protocol Nothing by mouth Fluids per DKA protocol Potassium mildly elevated at 5.5, repeat BMP pending Every hour blood sugar checks, every 2 hours BMPs 8/7 - Anion gap closed. Blood glucose normalized. Will discontinue IVF and insulin drip. Start diabetic diet. Start home 70/30 insulin this evening after more awake. Start accuchecks and high dose SSI QID AC/HS. Recheck labwork in AM. (2) Noncompliance with medications Current Visit: Yes Status: Chronic Assessment and Plan: Per chart review, patient reports noncompliance and continues to abuse IV drugs including methamphetamines, opiates Possible inciting factors noncompliance with a DKA. 07/04 - Type I DM management as per above. Will discuss drug abuse when more awake. (3) IV drug abuse Current Visit: Yes Status: Chronic Assessment and Plan: Patient reported to the ED physician that he has been on a 3 day villalobos for methamphetamine may be contributing to his ketosis and ketoacidosis No urinary drug screen obtained, patient refusing at this time We will continue monitor for signs and symptoms of withdrawal We will attempt a to after school counselor patient on cessation 07/04 - Will attempt to after school counselor on drug abuse once more awake. (4) Nausea & vomiting Current Visit: Yes Status: Acute Assessment and Plan: As above for DKA We will treat symptomatically with Zofran 07/04 - Likely secondary to DKA. Treating Type I DM as per above. Looks to be comfortable and asymptomatic at this time. Continue IV zofran PRN. (5) Hepatitis C Current Visit: Yes Status: Chronic Assessment and Plan: Chronic hep C, likely were secondary to IV drug use 07/04 - Keep outpatient follow up. (6) History of seizures Current Visit: Yes Status: Chronic Assessment and Plan: We will continue home medications 07/04 - Continue home medications. (7) Tobacco abuse Current Visit: Yes Status: Chronic Assessment and Plan: 07/04 - Will after school counselor on smoking cessation once more awake. (8) Hyponatremia Current Visit: Yes Status: Resolved Assessment and Plan: Sodium moderately low at 121 on admission Per chart review, patient does run chronically low in the 120s to low 130s Possibly secondary to SIADH, pulmonary disease, poor solute intake, medication side effect We will monitor as we are giving copious amounts of saline for DKA protocol as above 07/04 - Resolved. (9) DVT prophylaxis Current Visit: Yes Status: Acute Assessment and Plan: Continue SQ heparin. - Time Spent with Patient Total time spent is greater than 50% in coordination of care (as documented) at patient's floor/unit and/or counseling patient: less than 15 minutes Plan of Care Discussed with: patient (Nurse) Internal Medicine: Result - Labs CBC & Chem 7: 07/03/18 19:47 07/04/18 07:01 Labs: [facility] 07/03/18 07/04/18 07/04/18 23:54 01:22 03:22 Sodium 121 L 130 L D Potassium 3.9 D 3.9 Chloride 95 L 100 Carbon Dioxide 14 L 22 L BUN 22 H 16 Creatinine 0.90 0.59 L Glucose 749 H* 487 H 288 H Calcium 8.9 8.8 07/04/18 07/04/18 05:14 07:01 Sodium 133 L 135 L Potassium 3.9 3.7 Chloride 106 107 Carbon Dioxide 22 L 23 BUN 13 12 Creatinine 0.63 L 0.60 L Glucose 208 H 142 H Calcium 8.7 8.6 Consult Discharge Plan - Plan Referrals: NONE,PCP [Primary Care Provider] - (1) DKA, type 1 Qualifiers: Diabetes mellitus complication detail: without coma Qualified Code(s): E10.10 - Type 1 diabetes mellitus with ketoacidosis without coma (4) Nausea & vomiting Qualifiers: Vomiting type: cyclical vomiting Vomiting Intractability: non-intractable Qualified Code(s): G43.A0 - Cyclical vomiting, not intractable (5) Hepatitis C Qualifiers: Viral hepatitis chronicity: chronic Hepatic coma status: without hepatic coma Qualified Code(s): B18.2 - Chronic viral hepatitis C
[2018-07-04] MEDS ORDERED: Insulin LISPRO 300 UNITS/3 ML VIAL SQ SCH ×2 (11:30→21:00)
[2018-07-04] MEDS ORDERED: OXYCODONE Oral CONC 10 MG/0.5 ML ORAL.SYG SL PRN (11:54)
[2018-07-04] MEDS ORDERED: Ondansetron 4 MG/2 ML VIAL IVP PRN (11:54)
[2018-07-04] MEDS ORDERED: Naloxone 0.4 MG/ML INJ IVP PRN (11:54)
[2018-07-04] MEDS: Insulin LISPRO 300 UNITS/3 ML VIAL SQ SCH ×2 (16:48→21:32)
[2018-07-04] MEDS ORDERED: Insulin NPH/REG 70/30 100 UNIT/ML (x5UNIT) SQ SCH (17:00)
[2018-07-04] MEDS: Insulin NPH/REG 70/30 100 UNIT/ML (x5UNIT) SQ SCH (17:41)
[2018-07-04] MEDS: *HR* Heparin 5,000 UNIT/ML VIAL SQ SCH (17:42)
[2018-07-04] MEDS: Gabapentin 400 MG CAPSULE PO SCH ×2 (17:44→21:34)
[2018-07-04] MEDS ORDERED: NON-FORMULARY MEDICATION 1 EACH EACH (Insulin Aspart Prot/Insuln Asp [Novolog Mix 70-30 Fl SQ SCH (18:00)
[2018-07-05] MEDS: *HR* Heparin 5,000 UNIT/ML VIAL SQ SCH ×2 (06:17→18:46)
[2018-07-05 07:23] LABS: Hemoglobin 13.4 g/dL (12.9-16.9); Immature Granulocytes % 0.6 % (0-4); Lymphocytes % 16.2 %; Mean Corpuscular HGB Conc 33.5 g/dL (31.6-35.5); Mean Corpuscular Hemoglobin 29.2 pg (28.0-33.3); Mean Corpuscular Volume 87.1 fL (83.0-100.0); Mean Platelet Volume 9.3 fL (9.4-12.4); Monocytes % 6.6 %; Platelet Count 280 K/mcL (140-400); Red Blood Count 4.59 M/mcL (4.19-5.50); Red Cell Distribution Width 13.7 % (11.5-14.5); Segmented Neutrophils % 74.1 %
[2018-07-05 07:24] LABS: BUN/Creatinine Ratio 18 (6-26); Basophils % 0.2 %; Blood Urea Nitrogen 10 mg/dL (6-20); Calcium 8.7 mg/dL (8.6-10.3); Carbon Dioxide 23 mEq/L (23-29); Chloride 102 mEq/L (98-107); Eosinophils # 0.2 K/mcL (0.0-0.6); Eosinophils % 2.3 %; Glucose 366 mg/dL (70-105); Lymphocytes # 1.3 K/mcL (0.6-4.6); Monocytes # 0.5 K/mcL (0.0-1.3); Osmolality,Calculated 290 (280-300); Potassium 4.3 mEq/L (3.5-5.1); Sodium 133 mEq/L (136-145); eGFR For Non-African Americans > 60 (> 60)
[2018-07-05] MEDS: Insulin NPH/REG 70/30 100 UNIT/ML (x5UNIT) SQ SCH (08:27)
[2018-07-05] MEDS: Gabapentin 400 MG CAPSULE PO SCH ×3 (08:27→20:34)
[2018-07-05] MEDS: Venlafaxine XR (24 HR) 150 MG CAP.ER.24H PO SCH (08:27)
[2018-07-05] MEDS: Insulin LISPRO 300 UNITS/3 ML VIAL SQ SCH ×4 (08:28→20:34)
--- NOTE | 2018-07-05 13:30 | Internal Med Progress Note ---
Hospitalist Progress Note - Encounter Date of Encounter: 07/05/18 Time of Encounter: 13:27 - Subjective Interval History: Patient had no acute events overnight. He is more awake today. He denies fever , chills, chest pain, SOB, nausea, vomiting, and abdominal pain. He has no complaints at this time. - Exam Vitals: Temp Pulse Resp BP Pulse Ox 97.3 F L 92 16 142/91 96 07/05/18 11:17 07/05/18 11:17 07/05/18 11:07/05/18 11:07/05/18 11:17 Exam: Gen - Awake, alert, no acute distress HEENT - NCAT, PERRLA, EOMI, hearing grossly intact, oropharynx benign CV - RRR, normal S1 and S2, no M/R/G, no BLE edema Resp - Normal WOB, CTAB, no W/R/R GI - Soft, NT/ND, no masses, normal bowel sounds, no HSP Skin - Warm, dry, no rashes/lesions/ulcers Psych - Normal mood and affect, no depression or anxiety - Assessment and Plan (1) DKA, type 1 Current Visit: Yes Status: Acute Assessment and Plan: History of poorly controlled type 1 diabetes mellitus Most recent A1c of 10.8% on 05/13/18 Upon presentation, glucose was managed with 1041 with anion gap of 19 Beta hydroxybutyric acid elevated 2 days ago but within normal limits early this morning at 0.16 Patient reports nausea, vomiting, diarrhea, abdominal pain which is likely related to DKA Received 2 L normal saline in emergency department, started on insulin drip Inciting injury unknown at this time as patient is refusing to answer questions , chest x-ray within normal limits Vitals stable, WBC 11.2 which is likely hemoconcentrated secondary dehydration Plan Continue insulin drip, DKA protocol Nothing by mouth Fluids per DKA protocol Potassium mildly elevated at 5.5, repeat BMP pending Every hour blood sugar checks, every 2 hours BMPs 8/7 - Anion gap closed. Blood glucose normalized. Will discontinue IVF and insulin drip. Start diabetic diet. Start home 70/30 insulin this evening after more awake. Start accuchecks and high dose SSI QID AC/HS. Recheck labwork in AM. 07/05 - Blood glucose still elevated in 300s, however this was likely due to needing dextrose for hypoglycemia yesterday afternoon. Will continue diabetic diet, accuchecks QID, home 70/30 insulin BIDWM, and high dose SSI QID AC/HS. Recheck labwork in AM. (2) Noncompliance with medications Current Visit: Yes Status: Chronic Assessment and Plan: Per chart review, patient reports noncompliance and continues to abuse IV drugs including methamphetamines, opiates Possible inciting factors noncompliance with a DKA. 07/04 - Type I DM management as per above. Will discuss drug abuse when more awake. 07/05 - Type I DM management as per above. Discussed abstinence from drugs. (3) IV drug abuse Current Visit: Yes Status: Chronic Assessment and Plan: Patient reported to the ED physician that he has been on a 3 day villalobos for methamphetamine may be contributing to his ketosis and ketoacidosis No urinary drug screen obtained, patient refusing at this time We will continue monitor for signs and symptoms of withdrawal We will attempt a to on awake counselor patient on cessation 07/04 - Will attempt to on awake counselor on drug abuse once more awake. 07/05 - Counselled on abstinence from drugs. (4) Nausea & vomiting Current Visit: Yes Status: Resolved Assessment and Plan: As above for DKA We will treat symptomatically with Zofran 07/04 - Likely secondary to DKA. Treating Type I DM as per above. Looks to be comfortable and asymptomatic at this time. Continue IV zofran PRN. 07/05 - Resolved. Treating Type I DM as per above. Continue IV zofran PRN. (5) Hepatitis C Current Visit: Yes Status: Chronic Assessment and Plan: Chronic hep C, likely were secondary to IV drug use 07/04 - Keep outpatient follow up. 07/05 - Keep outpatient follow up. (6) History of seizures Current Visit: Yes Status: Chronic Assessment and Plan: We will continue home medications 07/04 - Continue home medications. 07/05 - Continue home medications. (7) Tobacco abuse Current Visit: Yes Status: Chronic Assessment and Plan: 07/04 - Will on awake counselor on smoking cessation once more awake. 07/05 - Counselled on smoking cessation. (8) Hyponatremia Current Visit: Yes Status: Resolved Assessment and Plan: Sodium moderately low at 121 on admission Per chart review, patient does run chronically low in the 120s to low 130s Possibly secondary to SIADH, pulmonary disease, poor solute intake, medication side effect We will monitor as we are giving copious amounts of saline for DKA protocol as above 07/04 - Resolved. 07/05 - Resolved. (9) DVT prophylaxis Current Visit: Yes Status: Acute Assessment and Plan: Continue SQ heparin. - Time Spent with Patient Total time spent is greater than 50% in coordination of care (as documented) at patient's floor/unit and/or counseling patient: less than 15 minutes Plan of Care Discussed with: patient (Nurse, Pharmacist) Internal Medicine: Result - Labs CBC & Chem 7: 07/05/18 06:33 07/05/18 06:33 Labs: Short CBC 07/05/18 Range/Units 06:33 WBC 8.1 (4.3-11.1) K/mcL Hgb 13.4 (12.9-16.9) g/dL Hct 40.0 (37.5-50.1) % Plt Count 280 (140-400) K/mcL Neutrophils # 6.0 (1.6-8.9) K/mcL BMP 07/05/18 06:33 Sodium 133 L Potassium 4.3 Chloride 102 Carbon Dioxide 23 BUN 10 Creatinine 0.55 L Glucose 366 H Calcium 8.7 Consult Discharge Plan - Plan Referrals: Lenin Ortega DO [Resident] - (1) DKA, type 1 Qualifiers: Diabetes mellitus complication detail: without coma Qualified Code(s): E10.10 - Type 1 diabetes mellitus with ketoacidosis without coma (4) Nausea & vomiting Qualifiers: Vomiting type: cyclical vomiting Vomiting Intractability: non-intractable Qualified Code(s): G43.A0 - Cyclical vomiting, not intractable (5) Hepatitis C Qualifiers: Viral hepatitis chronicity: chronic Hepatic coma status: without hepatic coma Qualified Code(s): B18.2 - Chronic viral hepatitis C
[2018-07-05] MEDS ORDERED: Insulin NPH/REG 70/30 100 UNIT/ML (x5UNIT) SQ SCH (18:00)
[2018-07-06 04:46] LABS: Basophils % 0.4 %; Eosinophils # 0.2 K/mcL (0.0-0.6); Eosinophils % 2.8 %; Hematocrit 37.9 % (37.5-50.1); Hemoglobin 12.6 g/dL (12.9-16.9); Immature Granulocytes % 0.4 % (0-4); Lymphocytes # 2.1 K/mcL (0.6-4.6); Lymphocytes % 26.3 %; Mean Corpuscular HGB Conc 33.2 g/dL (31.6-35.5); Mean Corpuscular Hemoglobin 28.4 pg (28.0-33.3); Mean Corpuscular Volume 85.4 fL (83.0-100.0); Mean Platelet Volume 9.5 fL (9.4-12.4); Monocytes # 0.6 K/mcL (0.0-1.3); Monocytes % 7.7 %; Neutrophils # 4.9 K/mcL (1.6-8.9); Platelet Count 281 K/mcL (140-400); Red Blood Count 4.44 M/mcL (4.19-5.50); Red Cell Distribution Width 13.5 % (11.5-14.5); Segmented Neutrophils % 62.4 %
[2018-07-06 05:01] LABS: BUN/Creatinine Ratio 27 (6-26); Blood Urea Nitrogen 14 mg/dL (6-20); Calcium 8.4 mg/dL (8.6-10.3); Carbon Dioxide 27 mEq/L (23-29); Chloride 103 mEq/L (98-107); Glucose 289 mg/dL (70-105); Osmolality,Calculated 293 (280-300); Potassium 3.7 mEq/L (3.5-5.1); Sodium 136 mEq/L (136-145); eGFR For Non-African Americans > 60 (> 60)
[2018-07-06] MEDS: *HR* Heparin 5,000 UNIT/ML VIAL SQ SCH (05:24)
[2018-07-06 06:51] VITALS: BP 126/79
[2018-07-06] MEDS ORDERED: Insulin NPH/REG 70/30 100 UNIT/ML (x5UNIT) SQ SCH (08:00)
[2018-07-06] MEDS: Gabapentin 400 MG CAPSULE PO SCH (08:21)
[2018-07-06] MEDS: Venlafaxine XR (24 HR) 150 MG CAP.ER.24H PO SCH (08:22)
[2018-07-06] MEDS: Insulin LISPRO 300 UNITS/3 ML VIAL SQ SCH ×2 (08:23→12:23)
--- NOTE | 2018-07-06 09:34 | Discharge Summary ---
- NOTES TO OUTPATIENT PROVIDER Notes to Outpatient Provider: Follow up with PCP in 2-3 days after discharge. Recheck BMP and CBC at that time. Adjust insulin as necessary for blood glucose readings. Date of Encounter: 07/06/18 Time of Encounter: 09:34 - Discharge Diagnosis (1) DKA, type 1 Priority: Primary Status: Resolved Qualifiers: Diabetes mellitus complication detail: without coma Qualified Code(s): E10.10 - Type 1 diabetes mellitus with ketoacidosis without coma (2) Noncompliance with medications Priority: Secondary Status: Chronic (3) IV drug abuse Priority: Secondary Status: Chronic (4) Nausea & vomiting Priority: Secondary Status: Resolved Qualifiers: Vomiting type: cyclical vomiting Vomiting Intractability: non-intractable Qualified Code(s): G43.A0 - Cyclical vomiting, not intractable (5) Hepatitis C Priority: Secondary Status: Chronic Qualifiers: Viral hepatitis chronicity: chronic Hepatic coma status: without hepatic coma Qualified Code(s): B18.2 - Chronic viral hepatitis C (6) History of seizures Priority: Secondary Status: Chronic (7) Tobacco abuse Priority: Secondary Status: Chronic (8) Hyponatremia Priority: Secondary Status: Resolved (9) DVT prophylaxis Priority: Secondary Status: Acute Hospital course: Mr. Lemus is a 32 year old male admitted for DKA secondary to non-compliance with Type I DM medications. He was admitted to ICU and started on DKA protocol with insulin drip. Blood glucoses improved overnight and anion gap closed. His home insulin regimen was restarted at lower dose and titrated up. He was initially not taking good PO, and had some borderline hypoglycemia. Today, he is tolerating full diet, and states that he feels back to normal. He wants to go home. Blood glucose this morning after breakfast is in low 300s. I anticipate this to improve as long as he is compliant with home insulin regiment of 70/30 NPH/reg 40 units BIDWM and sliding scale insulin TIDWM. He states that he has his insulin at home and will be compliant. I counselled on abstinence from IV drug use and cigarettes. We will arrange close follow up with PCP in 2-3 days after discharge. Repeat BMP and CBC can be checked at that time. Insulin can be adjusted at that time based on blood glucose readings. Patient has met maximum benefit of this hospitalization and will be discharged home in stable condition. Discharge discussed with: patient, nurse - Time Spent with Patient Total time spent providing and/or coordinating discharge services: Greater than 30 minutes - Discharge Medications Home Medications: Gabapentin [Neurontin] 800 mg PO TID 14 Days #42 tablet 06/08/18 [Rx] Insulin Aspart Prot/Insuln Asp [Novolog Mix 70-30 Flexpen Syrn] 40 units SQ BID #4 insuln.pen 06/08/18 [Rx] Insulin LISPRO [HumaLOG] See Protocol SQ TIDAC #4 vial 06/08/18 [Rx] Venlafaxine XR (24 HR) [Effexor Xr] 150 mg PO DAILY 14 Days #14 cap.er.24h 06/08 [Rx] Phenytoin ER [Dilantin ER] 100 mg PO TID 14 Days #42 capsule 07/03/18 [Rx] Allergies/Adverse Reactions: 3 Allergy/AdvReac Type Severity Reaction Status Date / Time insulin glargine Allergy Blister Verified 07/02/18 22:17 [From Lantus] diphenhydramine AdvReac Intermediate See Verified 07/02/18 22:17 [From Benadryl] Comments Date of admission: 07/03/18 23:30 Primary care physician: PCP NONE Discharging clinician: Philip Hanson Anticipated date of discharge: 07/06/18 - Constitutional Vitals: Temp Pulse Resp BP Pulse Ox 97.5 F L 72 14 126/79 98 07/06/18 06:49 07/06/18 06:49 07/06/18 06:49 07/06/18 06:49 07/06/18 06:49 General appearance: Present: cooperative, A&O X 3, pleasant, no acute distress, answers questions appropriately - Respiratory Respiratory exam: Present: CTAB. Absent: accessory muscle use, rales, rhonchi, wheezes Additional comments: Normal WOB - Cardiovascular Cardiovascular exam: Present: RRR, +S1, +S2. Absent: diastolic murmur, gallop, rubs, systolic murmur Additional comments: No BLE edema - GI/Abdominal GI/Abdominal exam: Present: normal bowel sounds, soft. Absent: distended, hepatomegaly, mass, splenomegaly, tenderness - Psychiatric Psychiatric exam: Present: normal affect, normal mood. Absent: agitated, anxious, depressed - Skin Skin exam: Present: dry, intact, warm. Absent: cyanosis, rash - Patient Status Disposition: Home, Self-Care Condition: Good Functional capacity at discharge: independent ambulation Overall status at discharge: patient is progressing back to baseline - Discharge Instructions Follow Up With: Lenin Ortega DO [Resident] - Additional Instructions: Follow up with PCP in 2-3 days after discharge. Recheck BMP and CBC at that time. Adjust insulin as necessary for blood glucose readings. - Diet and Activity Activity: resume usual activities as tolerated Diet: diabetic diet
== END 2018-07-06 12:51 | disposition home or self-care (01) | DRG 420 ==
LOC: EMEROO 18:52 → ICNU 18:52 → 3ANU 07-04 11:39
PROVIDERS: ADMIT Internal Medicine; ATTEND Internal Medicine

== ENCOUNTER 2018-07-19 21:55 | Observation (INO) ==
--- NOTE | 2018-07-19 22:21 | Emergency Department Note ---
Disposition Clinical Impression: Suicidal ideation, Homicidal ideation, Abscess, Hyperglycemia Disposition: Still a Patient Referrals: NONE,PCP [Primary Care Provider] - General Adult HPI - General Stated complaint: SI/HI Time Seen by Provider: 07/19/18 22:03 Source: patient, EMS, police Limitations: no limitations Nursing Notes Reviewed: Yes Vital Signs Reviewed: Yes - History of Present Illness HPI Narrative: Patient presents today via EMS for thoughts of suicidal ideation. Patient recently underwent detox last week. Has previously taken multiple medications including amphetamines as well as narcotics. Patient states that he was trying to get into [facility]. He is homeless. He did not arrive at [facility] until later this evening when they were close. The police were called. They called EMS and EMS has brought him in. He has been pleasant during his stay. Complains of suicidal ideation without specific plan. Patient trying to get help. Went [facility]. States that he has had issues being homeless. Standard go to sleep. Used speed. Patient then had the urge to get a knife and hurt himself as well as other people. Pain Scale: 0 - Related Data Previous Rx's Medication Instructions Recorded Gabapentin [Neurontin] 800 mg PO TID 14 Days #42 tablet 06/08/18 Insulin Aspart Prot/Insuln Asp 40 units SQ BID #4 insuln.pen 06/08/18 [Novolog Mix 70-30 Flexpen Syrn] Insulin LISPRO [HumaLOG] See Protocol SQ TIDAC #4 vial 06/08/18 Venlafaxine XR (24 HR) [Effexor Xr] 150 mg PO DAILY 14 Days #14 06/08/18 cap.er.24h Phenytoin ER [Dilantin ER] 100 mg PO TID 14 Days #42 capsule 07/03/18 Allergies Allergy/AdvReac Type Severity Reaction Status Date / Time insulin glargine Allergy Blister Verified 07/02/18 22:17 [From Lantus] diphenhydramine AdvReac Intermediate See Verified 07/02/18 22:17 [From Benadryl] Comments Review of Systems: As Per HPI Constitutional: Denies: fever, chills Cardiovascular: Denies: chest pain, palpitations Respiratory: Denies: cough, dyspnea Gastrointestinal: Denies: abdominal pain, nausea, vomiting Genitourinary: Denies: urgency, dysuria Musculoskeletal: Denies: back pain Psychiatric: Reports: suicidal thoughts Past Medical History - Past Medical History Medical history: Reports: diabetes, hepatitis, seizures, other Surgical history: Reports: orthopedic, other Psychiatric history: Reports: anxiety, previous psychiatric hospitalization - Social History Smoking Status: Current every day smoker Smokeless Tobacco Status: No Alcohol use: Reports: rarely Drug use: Reports: opiates, marijuana, methamphetamine, IV Drug Use Physical Exam General appearance: NAD, conversant Eyes: anicteric sclerae, moist conjunctivae; no lid-lag; PERRL HENT: Atraumatic; oropharynx clear with moist mucous membranes Neck: Normal appearance; Trachea midline Chest: Symmetrical chest rise; No respiratory distress Regular rate and rhythm. Clear auscultation bilaterally. Extremities: No peripheral edema or extremity tenderness Skin: Normal temperature, turgor and texture; no rash, ulcers or subcutaneous nodules Psych: Appropriate mood and affect Neuro: Awake and alert - General Limitations: no limitations General appearance: alert, in no apparent distress Course - Reevaluation(s) Reevaluation #1: Patient with concern for abscess along the right forearm. Antibiotics prescribed. Not specifically fluctuant for I&D. The patient does have an elevated glucose 2. Home dose 70/30 insulin has been ordered. Reevaluation #2: Patient signed out to the [facility] day physician. - Consultations Consultation #1: Case was discussed with psychiatric team. Patient will undergo placement. Vital Signs Temperature 98.3 F 07/19/18 22:00 Pulse Rate 105 07/19/18 22:00 Respiratory Rate 20 07/19/18 22:00 Blood Pressure 162/108 07/19/18 22:00 O2 Sat by Pulse Oximetry 99 07/19/18 22:00 Temperature 98.3 F 07/19/18 22:00 Pulse Rate 101 07/19/18 23:26 Respiratory Rate 20 07/19/18 22:00 Blood Pressure 129/90 07/19/18 23:26 O2 Sat by Pulse Oximetry 99 07/19/18 22:00 Oxygen Delivery Oxygen Delivery Room Air Medical Decision Making - Lab Data Result diagrams: 07/19/18 22:19 07/19/18 22:18 Lab Results 07/19/18 07/19/18 07/19/18 Range/Units 22:18 22:19 22:20 WBC 11.2 H (4.3-11.1) K/mcL RBC 4.64 (4.19-5.50) M/mcL Hgb 13.1 (12.9-16.9) g/dL Hct 39.7 (37.5-50.1) % MCV 85.6 (83.0-100.0) fL MCH 28.2 (28.0-33.3) pg MCHC 33.0 (31.6-35.5) g/dL RDW 13.5 (11.5-14.5) % Plt Count 272 (140-400) K/mcL MPV 9.4 (9.4-12.4) fL Immature Gran % 0.4 (0-4) % Seg Neutrophils % 68.3 % Lymphocytes % 22.2 % Monocytes % 7.7 % Eosinophils % 0.9 % Basophils % 0.5 % Neutrophils # 7.7 (1.6-8.9) K/mcL Lymphocytes # 2.5 (0.6-4.6) K/mcL Monocytes # 0.9 (0.0-1.3) K/mcL Eosinophils # 0.1 (0.0-0.6) K/mcL Basophils # 0.1 (0.0-0.2) K/mcL Sodium 131 L (136-145) mEq/L Potassium 4.1 (3.5-5.1) mEq/L Chloride 95 L (98-107) mEq/L Carbon Dioxide 26 (23-29) mEq/L BUN 13 (6-20) mg/dL Creatinine 0.71 (0.70-1.30) mg/dL Est GFR ( Amer) > 60 (> 60) Est GFR (Non-Af Amer) > 60 (> 60) BUN/Creatinine Ratio 18 (6-26) Glucose 336 H (70-105) mg/dL Calculated Osmolality 285 (280-300) Calcium 9.6 (8.6-10.3) mg/dL Urine Color Yellow (Yellow) Urine Clarity Clear (Clear) Urine pH 6.0 (5.0-8.0) pH Units Ur Specific Hurley > 1.030 H (1.010-1.025) Urine Protein Negative (Neg-Trace) mg/dL Urine Glucose (UA) >=1000 H (Normal) mg/dL Urine Ketones 15 H (Negative) mg/dL Urine Blood Negative (Negative) Urine Nitrite Negative (Negative) Urine Bilirubin Negative (Negative) Urine Urobilinogen Normal (Normal) mg/dL Ur Leukocyte Esterase Negative (Negative) Salicylates < 2.5 L (15.0-30.0) mg/dL Urine Opiates Screen (Poqxqh=180) ng/mL Acetaminophen < 10 L (10-20) mcg/mL Ur Barbiturates Screen (Oqijwu=565) ng/mL Ur Phencyclidine Scrn (Cutoff=25) ng/mL Ur Amphetamines Screen (Sudbaw=9577) ng/mL U Benzodiazepines Scrn (Eagcjy=407) ng/mL Urine Cocaine Screen (Cutoff= 300) ng/mL U Marijuana (THC) Screen (Cutoff = 50) ng/mL Ur Drug Screen Interp Ethyl Alcohol 12 H (Less than 10) mg/dL 07/19/18 Range/Units 22:20 WBC (4.3-11.1) K/mcL RBC (4.19-5.50) M/mcL Hgb (12.9-16.9) g/dL Hct (37.5-50.1) % MCV (83.0-100.0) fL MCH (28.0-33.3) pg MCHC (31.6-35.5) g/dL RDW (11.5-14.5) % Plt Count (140-400) K/mcL MPV (9.4-12.4) fL Immature Gran % (0-4) % Seg Neutrophils % % Lymphocytes % % Monocytes % % Eosinophils % % Basophils % % Neutrophils # (1.6-8.9) K/mcL Lymphocytes # (0.6-4.6) K/mcL Monocytes # (0.0-1.3) K/mcL Eosinophils # (0.0-0.6) K/mcL Basophils # (0.0-0.2) K/mcL Sodium (136-145) mEq/L Potassium (3.5-5.1) mEq/L Chloride (98-107) mEq/L Carbon Dioxide (23-29) mEq/L BUN (6-20) mg/dL Creatinine (0.70-1.30) mg/dL Est GFR ( Amer) (> 60) Est GFR (Non-Af Amer) (> 60) BUN/Creatinine Ratio (6-26) Glucose (70-105) mg/dL Calculated Osmolality (280-300) Calcium (8.6-10.3) mg/dL Urine Color (Yellow) Urine Clarity (Clear) Urine pH (5.0-8.0) pH Units Ur Specific Hurley (1.010-1.025) Urine Protein (Neg-Trace) mg/dL Urine Glucose (UA) (Normal) mg/dL Urine Ketones (Negative) mg/dL Urine Blood (Negative) Urine Nitrite (Negative) Urine Bilirubin (Negative) Urine Urobilinogen (Normal) mg/dL Ur Leukocyte Esterase (Negative) Salicylates (15.0-30.0) mg/dL Urine Opiates Screen Negative (Pdhafv=260) ng/mL Acetaminophen (10-20) mcg/mL Ur Barbiturates Screen Negative (Ldkxuj=436) ng/mL Ur Phencyclidine Scrn Negative (Cutoff=25) ng/mL Ur Amphetamines Screen Positive H (Aoqlcl=9021) ng/mL U Benzodiazepines Scrn Negative (Jdpkwt=971) ng/mL Urine Cocaine Screen Negative (Cutoff= 300) ng/mL U Marijuana (THC) Screen Negative (Cutoff = 50) ng/mL Ur Drug Screen Interp See Below Ethyl Alcohol (Less than 10) mg/dL
[2018-07-19 22:34] LABS: Basophils # 0.1 K/mcL (0.0-0.2); Basophils % 0.5 %; Eosinophils # 0.1 K/mcL (0.0-0.6); Eosinophils % 0.9 %; Hematocrit 39.7 % (37.5-50.1); Hemoglobin 13.1 g/dL (12.9-16.9); Immature Granulocytes % 0.4 % (0-4); Lymphocytes # 2.5 K/mcL (0.6-4.6); Lymphocytes % 22.2 %; Mean Corpuscular Hemoglobin 28.2 pg (28.0-33.3); Mean Corpuscular Volume 85.6 fL (83.0-100.0); Mean Platelet Volume 9.4 fL (9.4-12.4); Monocytes # 0.9 K/mcL (0.0-1.3); Monocytes % 7.7 %; Neutrophils # 7.7 K/mcL (1.6-8.9); Platelet Count 272 K/mcL (140-400); Red Blood Count 4.64 M/mcL (4.19-5.50); Red Cell Distribution Width 13.5 % (11.5-14.5); Segmented Neutrophils % 68.3 %
[2018-07-19 22:37] LABS: Bilirubin,Urine Negative (Negative); Blood,Urine Negative (Negative); Clarity,Urine Clear (Clear); Color,Urine Yellow (Yellow); Glucose,Urine (UA) >=1000 mg/dL (Normal); Ketones,Urine 15 mg/dL (Negative); Leukocyte Esterase,Urine Negative (Negative); Nitrite,Urine Negative (Negative); Protein,Urine Negative (Neg-Trace); Specific Gravity,Urine > 1.030 (1.010-1.025); Urobilinogen,Urine Normal (Normal)
[2018-07-19 22:56] LABS: Amphetamine Screen,Urine Positive ng/mL (Cutoff=1000); Barbiturate Screen,Urine Negative ng/mL (Cutoff=200); Benzodiazepines Screen,Urine Negative ng/mL (Cutoff=200); Cannabinoid Screen,Urine Negative ng/mL (Cutoff = 50); Cocaine Screen,Urine Negative ng/mL (Cutoff= 300); Opiate Screen,Urine Negative ng/mL (Cutoff=300); Phencyclidine Screen,Urine Negative ng/mL (Cutoff=25)
[2018-07-19 22:56] LABS: Acetaminophen < 10 mcg/mL (10-20); BUN/Creatinine Ratio 18 (6-26); Blood Urea Nitrogen 13 mg/dL (6-20); Calcium 9.6 mg/dL (8.6-10.3); Carbon Dioxide 26 mEq/L (23-29); Chloride 95 mEq/L (98-107); Ethanol 12 mg/dL (Less than 10); Glucose 336 mg/dL (70-105); Osmolality,Calculated 285 (280-300); Potassium 4.1 mEq/L (3.5-5.1); Salicylate < 2.5 mg/dL (15.0-30.0); Sodium 131 mEq/L (136-145); eGFR For Non-African Americans > 60 (> 60)
[2018-07-19] MEDS ORDERED: cephALEXin 250 MG CAPSULE PO STA (23:30)
[2018-07-19] MEDS ORDERED: Sulfamethoxazole/Trimeth DS 1 EACH TABLET PO ONE (23:30)
[2018-07-20] MEDS ORDERED: Venlafaxine XR (24 HR) 150 MG CAP.ER.24H PO STA (01:08)
[2018-07-20] MEDS ORDERED: Insulin NPH/REG 70/30 100 UNIT/ML (x5UNIT) SQ ONE (01:15)
[2018-07-20] MEDS ORDERED: Insulin Human Regular 10 UNIT in 0.9 % Sodium Chloride 10 ML IV ONE (14:49)
[2018-07-20] MEDS ORDERED: 0.9 % Sodium Chloride 1,000 ML IVC ONE (14:49)
[2018-07-20] MEDS ORDERED: Insulin Regular, Human 100 UNIT/ML SQ ONE ×2 (15:37→18:07)
--- NOTE | 2018-07-20 15:43 | Emergency Department Note ---
Disposition Clinical Impression: Suicidal ideation, Homicidal ideation, Abscess, Hyperglycemia Disposition: Still a Patient Referrals: NONE,PCP [Primary Care Provider] - General Adult HPI - General Chief complaint: ED Psychiatric Symptoms Stated complaint: SI/HI Time Seen by Provider: 07/19/18 22:03 Source: patient, EMS, police Limitations: no limitations - History of Present Illness Pain Scale: 0 - Related Data Previous Rx's Medication Instructions Recorded Gabapentin [Neurontin] 800 mg PO TID 14 Days #42 tablet 06/08/18 Insulin Aspart Prot/Insuln Asp 40 units SQ BID #4 insuln.pen 06/08/18 [Novolog Mix 70-30 Flexpen Syrn] Insulin LISPRO [HumaLOG] See Protocol SQ TIDAC #4 vial 06/08/18 Venlafaxine XR (24 HR) [Effexor Xr] 150 mg PO DAILY 14 Days #14 06/08/18 cap.er.24h Phenytoin ER [Dilantin ER] 100 mg PO TID 14 Days #42 capsule 07/03/18 Allergies Allergy/AdvReac Type Severity Reaction Status Date / Time insulin glargine Allergy Blister Verified 07/02/18 22:17 [From Lantus] diphenhydramine AdvReac Intermediate See Verified 07/02/18 22:17 [From Benadryl] Comments Constitutional: Denies: fever, chills Cardiovascular: Denies: chest pain, palpitations Respiratory: Denies: cough, dyspnea Gastrointestinal: Denies: abdominal pain, nausea, vomiting Genitourinary: Denies: urgency, dysuria Musculoskeletal: Denies: back pain Psychiatric: Reports: suicidal thoughts Past Medical History - Past Medical History Medical history: Reports: diabetes, hepatitis, seizures, other Surgical history: Reports: orthopedic, other Psychiatric history: Reports: anxiety, previous psychiatric hospitalization - Social History Smoking Status: Current every day smoker Smokeless Tobacco Status: No Alcohol use: Reports: rarely Drug use: Reports: opiates, marijuana, methamphetamine, IV Drug Use Physical Exam - General Limitations: no limitations General appearance: alert, in no apparent distress Course Course Narrative: Patient currently awaits placement. He voices no complaints at this time. He was noted to be hyperglycemic over 500. Reviewing his chart he is always hyperglycemic. He had no evidence of DKA on his prior labs. Plan to repeat BMP. He refuses IV fluids or IV insulin. Subcutaneous insulin ordered. Exam: Patient is alert in no acute distress. No focal deficits. Mentating appropriate. Heart is regular rate and rhythm. Lungs are to auscultation. Abdomen is soft nontender. Vital Signs Temperature 98.3 F 07/19/18 22:00 Pulse Rate 105 07/19/18 22:00 Respiratory Rate 20 07/19/18 22:00 Blood Pressure 162/108 07/19/18 22:00 O2 Sat by Pulse Oximetry 99 07/19/18 22:00 Temperature 98.3 F 07/19/18 22:00 Pulse Rate 86 07/20/18 14:48 Respiratory Rate 16 07/20/18 14:48 Blood Pressure 138/91 07/20/18 14:48 O2 Sat by Pulse Oximetry 97 07/20/18 14:48 Oxygen Delivery Oxygen Delivery Room Air Medical Decision Making - Lab Data Lab results reviewed: Yes I reviewed the patient's lab results. Result diagrams: 07/19/18 22:19 07/20/18 16:32 Lab Results 07/19/18 07/19/18 07/19/18 Range/Units 22:18 22:19 22:20 WBC 11.2 H (4.3-11.1) K/mcL RBC 4.64 (4.19-5.50) M/mcL Hgb 13.1 (12.9-16.9) g/dL Hct 39.7 (37.5-50.1) % MCV 85.6 (83.0-100.0) fL MCH 28.2 (28.0-33.3) pg MCHC 33.0 (31.6-35.5) g/dL RDW 13.5 (11.5-14.5) % Plt Count 272 (140-400) K/mcL MPV 9.4 (9.4-12.4) fL Immature Gran % 0.4 (0-4) % Seg Neutrophils % 68.3 % Lymphocytes % 22.2 % Monocytes % 7.7 % Eosinophils % 0.9 % Basophils % 0.5 % Neutrophils # 7.7 (1.6-8.9) K/mcL Lymphocytes # 2.5 (0.6-4.6) K/mcL Monocytes # 0.9 (0.0-1.3) K/mcL Eosinophils # 0.1 (0.0-0.6) K/mcL Basophils # 0.1 (0.0-0.2) K/mcL Sodium 131 L (136-145) mEq/L Potassium 4.1 (3.5-5.1) mEq/L Chloride 95 L (98-107) mEq/L Carbon Dioxide 26 (23-29) mEq/L BUN 13 (6-20) mg/dL Creatinine 0.71 (0.70-1.30) mg/dL Est GFR ( Amer) > 60 (> 60) Est GFR (Non-Af Amer) > 60 (> 60) BUN/Creatinine Ratio 18 (6-26) Glucose 336 H (70-105) mg/dL Calculated Osmolality 285 (280-300) Calcium 9.6 (8.6-10.3) mg/dL Urine Color Yellow (Yellow) Urine Clarity Clear (Clear) Urine pH 6.0 (5.0-8.0) pH Units Ur Specific [place] > 1.030 H (1.010-1.025) Urine Protein Negative (Neg-Trace) mg/dL Urine Glucose (UA) >=1000 H (Normal) mg/dL Urine Ketones 15 H (Negative) mg/dL Urine Blood Negative (Negative) Urine Nitrite Negative (Negative) Urine Bilirubin Negative (Negative) Urine Urobilinogen Normal (Normal) mg/dL Ur Leukocyte Esterase Negative (Negative) Salicylates < 2.5 L (15.0-30.0) mg/dL Urine Opiates Screen (Xqtuoo=250) ng/mL Acetaminophen < 10 L (10-20) mcg/mL Ur Barbiturates Screen (Iroiux=331) ng/mL Ur Phencyclidine Scrn (Cutoff=25) ng/mL Ur Amphetamines Screen (Fjxfcn=2973) ng/mL U Benzodiazepines Scrn (Ylxagv=546) ng/mL Urine Cocaine Screen (Cutoff= 300) ng/mL U Marijuana (THC) Screen (Cutoff = 50) ng/mL Ur Drug Screen Interp Ethyl Alcohol 12 H (Less than 10) mg/dL 07/19/18 07/20/18 Range/Units 22:20 16:32 WBC (4.3-11.1) K/mcL RBC (4.19-5.50) M/mcL Hgb (12.9-16.9) g/dL Hct (37.5-50.1) % MCV (83.0-100.0) fL MCH (28.0-33.3) pg MCHC (31.6-35.5) g/dL RDW (11.5-14.5) % Plt Count (140-400) K/mcL MPV (9.4-12.4) fL Immature Gran % (0-4) % Seg Neutrophils % % Lymphocytes % % Monocytes % % Eosinophils % % Basophils % % Neutrophils # (1.6-8.9) K/mcL Lymphocytes # (0.6-4.6) K/mcL Monocytes # (0.0-1.3) K/mcL Eosinophils # (0.0-0.6) K/mcL Basophils # (0.0-0.2) K/mcL Sodium 128 L (136-145) mEq/L Potassium 4.6 (3.5-5.1) mEq/L Chloride 95 L (98-107) mEq/L Carbon Dioxide 27 (23-29) mEq/L BUN 19 (6-20) mg/dL Creatinine 0.91 (0.70-1.30) mg/dL Est GFR ( Amer) > 60 (> 60) Est GFR (Non-Af Amer) > 60 (> 60) BUN/Creatinine Ratio 21 (6-26) Glucose 564 H* (70-105) mg/dL Calculated Osmolality 294 (280-300) Calcium 8.6 (8.6-10.3) mg/dL Urine Color (Yellow) Urine Clarity (Clear) Urine pH (5.0-8.0) pH Units Ur Specific [place] (1.010-1.025) Urine Protein (Neg-Trace) mg/dL Urine Glucose (UA) (Normal) mg/dL Urine Ketones (Negative) mg/dL Urine Blood (Negative) Urine Nitrite (Negative) Urine Bilirubin (Negative) Urine Urobilinogen (Normal) mg/dL Ur Leukocyte Esterase (Negative) Salicylates (15.0-30.0) mg/dL Urine Opiates Screen Negative (Koebvx=957) ng/mL Acetaminophen (10-20) mcg/mL Ur Barbiturates Screen Negative (Cqnqtb=109) ng/mL Ur Phencyclidine Scrn Negative (Cutoff=25) ng/mL Ur Amphetamines Screen Positive H (Bahudr=1589) ng/mL U Benzodiazepines Scrn Negative (Uixhki=061) ng/mL Urine Cocaine Screen Negative (Cutoff= 300) ng/mL U Marijuana (THC) Screen Negative (Cutoff = 50) ng/mL Ur Drug Screen Interp See Below Ethyl Alcohol (Less than 10) mg/dL Attestation Statement - Attestation Attestation: I examined this patient and my medical decision-making was reviewed with the Resident Physician, Dr. Mills. I agree with the documented findings, disposition and treatment plan as described except to the extent set forth below.
[2018-07-20] MEDS ORDERED: Sulfamethoxazole/Trimeth DS 1 EACH TABLET PO ONE (15:47)
[2018-07-20] MEDS ORDERED: cephALEXin 500 MG CAPSULE PO ONE (15:47)
[2018-07-20] MEDS ORDERED: Gabapentin 400 MG CAPSULE PO ONE (15:48)
[2018-07-20 17:14] LABS: BUN/Creatinine Ratio 21 (6-26); Blood Urea Nitrogen 19 mg/dL (6-20); Calcium 8.6 mg/dL (8.6-10.3); Carbon Dioxide 27 mEq/L (23-29); Chloride 95 mEq/L (98-107); Glucose 564 mg/dL (70-105); Osmolality,Calculated 294 (280-300); Potassium 4.6 mEq/L (3.5-5.1); Sodium 128 mEq/L (136-145); eGFR For Non-African Americans > 60 (> 60)
--- NOTE | 2018-07-20 19:14 | Emergency Department Note ---
Disposition Clinical Impression: Suicidal ideation, Homicidal ideation, Abscess, Hyperglycemia Disposition: Still a Patient Referrals: NONE,PCP [Primary Care Provider] - General Adult HPI - General Chief complaint: ED Psychiatric Symptoms Stated complaint: SI/HI Time Seen by Provider: 07/19/18 22:03 Source: patient, EMS, police Limitations: no limitations - History of Present Illness Pain Scale: 0 - Related Data Previous Rx's Medication Instructions Recorded Gabapentin [Neurontin] 800 mg PO TID 14 Days #42 tablet 06/08/18 Insulin Aspart Prot/Insuln Asp 40 units SQ BID #4 insuln.pen 06/08/18 [Novolog Mix 70-30 Flexpen Syrn] Insulin LISPRO [HumaLOG] See Protocol SQ TIDAC #4 vial 06/08/18 Venlafaxine XR (24 HR) [Effexor Xr] 150 mg PO DAILY 14 Days #14 06/08/18 cap.er.24h Phenytoin ER [Dilantin ER] 100 mg PO TID 14 Days #42 capsule 07/03/18 Allergies Allergy/AdvReac Type Severity Reaction Status Date / Time insulin glargine Allergy Blister Verified 07/02/18 22:17 [From Lantus] diphenhydramine AdvReac Intermediate See Verified 07/02/18 22:17 [From Benadryl] Comments Constitutional: Denies: fever, chills Cardiovascular: Denies: chest pain, palpitations Respiratory: Denies: cough, dyspnea Gastrointestinal: Denies: abdominal pain, nausea, vomiting Genitourinary: Denies: urgency, dysuria Musculoskeletal: Denies: back pain Psychiatric: Reports: suicidal thoughts Past Medical History - Past Medical History Medical history: Reports: diabetes, hepatitis, seizures, other Surgical history: Reports: orthopedic, other Psychiatric history: Reports: anxiety, previous psychiatric hospitalization - Social History Smoking Status: Current every day smoker Smokeless Tobacco Status: No Alcohol use: Reports: rarely Drug use: Reports: opiates, marijuana, methamphetamine, IV Drug Use Physical Exam - General Limitations: no limitations General appearance: alert, in no apparent distress Course Vital Signs Temperature 98.3 F 07/19/18 22:00 Pulse Rate 105 07/19/18 22:00 Respiratory Rate 20 07/19/18 22:00 Blood Pressure 162/108 07/19/18 22:00 O2 Sat by Pulse Oximetry 99 07/19/18 22:00 Temperature 98.3 F 07/19/18 22:00 Pulse Rate 78 07/21/18 04:00 Respiratory Rate 16 07/21/18 04:00 Blood Pressure 129/79 07/21/18 04:00 O2 Sat by Pulse Oximetry 91 07/21/18 04:00 Oxygen Delivery Oxygen Delivery Room Air Medical Decision Making - Lab Data Result diagrams: 07/19/18 22:19 07/20/18 16:32 Lab Results 07/19/18 07/19/18 07/19/18 Range/Units 22:18 22:19 22:20 WBC 11.2 H (4.3-11.1) K/mcL RBC 4.64 (4.19-5.50) M/mcL Hgb 13.1 (12.9-16.9) g/dL Hct 39.7 (37.5-50.1) % MCV 85.6 (83.0-100.0) fL MCH 28.2 (28.0-33.3) pg MCHC 33.0 (31.6-35.5) g/dL RDW 13.5 (11.5-14.5) % Plt Count 272 (140-400) K/mcL MPV 9.4 (9.4-12.4) fL Immature Gran % 0.4 (0-4) % Seg Neutrophils % 68.3 % Lymphocytes % 22.2 % Monocytes % 7.7 % Eosinophils % 0.9 % Basophils % 0.5 % Neutrophils # 7.7 (1.6-8.9) K/mcL Lymphocytes # 2.5 (0.6-4.6) K/mcL Monocytes # 0.9 (0.0-1.3) K/mcL Eosinophils # 0.1 (0.0-0.6) K/mcL Basophils # 0.1 (0.0-0.2) K/mcL Sodium 131 L (136-145) mEq/L Potassium 4.1 (3.5-5.1) mEq/L Chloride 95 L (98-107) mEq/L Carbon Dioxide 26 (23-29) mEq/L BUN 13 (6-20) mg/dL Creatinine 0.71 (0.70-1.30) mg/dL Est GFR ( Amer) > 60 (> 60) Est GFR (Non-Af Amer) > 60 (> 60) BUN/Creatinine Ratio 18 (6-26) Glucose 336 H (70-105) mg/dL POC Glucose (70-99) mg/dL Calculated Osmolality 285 (280-300) Calcium 9.6 (8.6-10.3) mg/dL Urine Color Yellow (Yellow) Urine Clarity Clear (Clear) Urine pH 6.0 (5.0-8.0) pH Units Ur Specific [place] > 1.030 H (1.010-1.025) Urine Protein Negative (Neg-Trace) mg/dL Urine Glucose (UA) >=1000 H (Normal) mg/dL Urine Ketones 15 H (Negative) mg/dL Urine Blood Negative (Negative) Urine Nitrite Negative (Negative) Urine Bilirubin Negative (Negative) Urine Urobilinogen Normal (Normal) mg/dL Ur Leukocyte Esterase Negative (Negative) Salicylates < 2.5 L (15.0-30.0) mg/dL Urine Opiates Screen (Dmlixz=559) ng/mL Acetaminophen < 10 L (10-20) mcg/mL Ur Barbiturates Screen (Qvalst=161) ng/mL Ur Phencyclidine Scrn (Cutoff=25) ng/mL Ur Amphetamines Screen (Gtzrmz=3187) ng/mL U Benzodiazepines Scrn (Qhoglg=642) ng/mL Urine Cocaine Screen (Cutoff= 300) ng/mL U Marijuana (THC) Screen (Cutoff = 50) ng/mL Ur Drug Screen Interp Ethyl Alcohol 12 H (Less than 10) mg/dL 07/19/18 07/20/18 07/20/18 Range/Units 22:20 11:55 14:44 WBC (4.3-11.1) K/mcL RBC (4.19-5.50) M/mcL Hgb (12.9-16.9) g/dL Hct (37.5-50.1) % MCV (83.0-100.0) fL MCH (28.0-33.3) pg MCHC (31.6-35.5) g/dL RDW (11.5-14.5) % Plt Count (140-400) K/mcL MPV (9.4-12.4) fL Immature Gran % (0-4) % Seg Neutrophils % % Lymphocytes % % Monocytes % % Eosinophils % % Basophils % % Neutrophils # (1.6-8.9) K/mcL Lymphocytes # (0.6-4.6) K/mcL Monocytes # (0.0-1.3) K/mcL Eosinophils # (0.0-0.6) K/mcL Basophils # (0.0-0.2) K/mcL Sodium (136-145) mEq/L Potassium (3.5-5.1) mEq/L Chloride (98-107) mEq/L Carbon Dioxide (23-29) mEq/L BUN (6-20) mg/dL Creatinine (0.70-1.30) mg/dL Est GFR ( Amer) (> 60) Est GFR (Non-Af Amer) (> 60) BUN/Creatinine Ratio (6-26) Glucose (70-105) mg/dL POC Glucose 328 H 549 H* (70-99) mg/dL Calculated Osmolality (280-300) Calcium (8.6-10.3) mg/dL Urine Color (Yellow) Urine Clarity (Clear) Urine pH (5.0-8.0) pH Units Ur Specific [place] (1.010-1.025) Urine Protein (Neg-Trace) mg/dL Urine Glucose (UA) (Normal) mg/dL Urine Ketones (Negative) mg/dL Urine Blood (Negative) Urine Nitrite (Negative) Urine Bilirubin (Negative) Urine Urobilinogen (Normal) mg/dL Ur Leukocyte Esterase (Negative) Salicylates (15.0-30.0) mg/dL Urine Opiates Screen Negative (Dtauvw=147) ng/mL Acetaminophen (10-20) mcg/mL Ur Barbiturates Screen Negative (Yrmovl=424) ng/mL Ur Phencyclidine Scrn Negative (Cutoff=25) ng/mL Ur Amphetamines Screen Positive H (Hpztds=8469) ng/mL U Benzodiazepines Scrn Negative (Oxhmwh=709) ng/mL Urine Cocaine Screen Negative (Cutoff= 300) ng/mL U Marijuana (THC) Screen Negative (Cutoff = 50) ng/mL Ur Drug Screen Interp See Below Ethyl Alcohol (Less than 10) mg/dL 07/20/18 07/20/18 07/20/18 Range/Units 14:45 16:32 17:50 WBC (4.3-11.1) K/mcL RBC (4.19-5.50) M/mcL Hgb (12.9-16.9) g/dL Hct (37.5-50.1) % MCV (83.0-100.0) fL MCH (28.0-33.3) pg MCHC (31.6-35.5) g/dL RDW (11.5-14.5) % Plt Count (140-400) K/mcL MPV (9.4-12.4) fL Immature Gran % (0-4) % Seg Neutrophils % % Lymphocytes % % Monocytes % % Eosinophils % % Basophils % % Neutrophils # (1.6-8.9) K/mcL Lymphocytes # (0.6-4.6) K/mcL Monocytes # (0.0-1.3) K/mcL Eosinophils # (0.0-0.6) K/mcL Basophils # (0.0-0.2) K/mcL Sodium 128 L (136-145) mEq/L Potassium 4.6 (3.5-5.1) mEq/L Chloride 95 L (98-107) mEq/L Carbon Dioxide 27 (23-29) mEq/L BUN 19 (6-20) mg/dL Creatinine 0.91 (0.70-1.30) mg/dL Est GFR ( Amer) > 60 (> 60) Est GFR (Non-Af Amer) > 60 (> 60) BUN/Creatinine Ratio 21 (6-26) Glucose 564 H* (70-105) mg/dL POC Glucose 562 H* 409 H* (70-99) mg/dL Calculated Osmolality 294 (280-300) Calcium 8.6 (8.6-10.3) mg/dL Urine Color (Yellow) Urine Clarity (Clear) Urine pH (5.0-8.0) pH Units Ur Specific [place] (1.010-1.025) Urine Protein (Neg-Trace) mg/dL Urine Glucose (UA) (Normal) mg/dL Urine Ketones (Negative) mg/dL Urine Blood (Negative) Urine Nitrite (Negative) Urine Bilirubin (Negative) Urine Urobilinogen (Normal) mg/dL Ur Leukocyte Esterase (Negative) Salicylates (15.0-30.0) mg/dL Urine Opiates Screen (Eivlys=468) ng/mL Acetaminophen (10-20) mcg/mL Ur Barbiturates Screen (Qpollj=826) ng/mL Ur Phencyclidine Scrn (Cutoff=25) ng/mL Ur Amphetamines Screen (Dscecr=8660) ng/mL U Benzodiazepines Scrn (Ueluyq=894) ng/mL Urine Cocaine Screen (Cutoff= 300) ng/mL U Marijuana (THC) Screen (Cutoff = 50) ng/mL Ur Drug Screen Interp Ethyl Alcohol (Less than 10) mg/dL 07/20/18 07/20/18 07/21/18 Range/Units 20:16 22:14 00:17 WBC (4.3-11.1) K/mcL RBC (4.19-5.50) M/mcL Hgb (12.9-16.9) g/dL Hct (37.5-50.1) % MCV (83.0-100.0) fL MCH (28.0-33.3) pg MCHC (31.6-35.5) g/dL RDW (11.5-14.5) % Plt Count (140-400) K/mcL MPV (9.4-12.4) fL Immature Gran % (0-4) % Seg Neutrophils % % Lymphocytes % % Monocytes % % Eosinophils % % Basophils % % Neutrophils # (1.6-8.9) K/mcL Lymphocytes # (0.6-4.6) K/mcL Monocytes # (0.0-1.3) K/mcL Eosinophils # (0.0-0.6) K/mcL Basophils # (0.0-0.2) K/mcL Sodium (136-145) mEq/L Potassium (3.5-5.1) mEq/L Chloride (98-107) mEq/L Carbon Dioxide (23-29) mEq/L BUN (6-20) mg/dL Creatinine (0.70-1.30) mg/dL Est GFR ( Amer) (> 60) Est GFR (Non-Af Amer) (> 60) BUN/Creatinine Ratio (6-26) Glucose (70-105) mg/dL POC Glucose 302 H 96 221 H (70-99) mg/dL Calculated Osmolality (280-300) Calcium (8.6-10.3) mg/dL Urine Color (Yellow) Urine Clarity (Clear) Urine pH (5.0-8.0) pH Units Ur Specific [place] (1.010-1.025) Urine Protein (Neg-Trace) mg/dL Urine Glucose (UA) (Normal) mg/dL Urine Ketones (Negative) mg/dL Urine Blood (Negative) Urine Nitrite (Negative) Urine Bilirubin (Negative) Urine Urobilinogen (Normal) mg/dL Ur Leukocyte Esterase (Negative) Salicylates (15.0-30.0) mg/dL Urine Opiates Screen (Cehqzl=523) ng/mL Acetaminophen (10-20) mcg/mL Ur Barbiturates Screen (Vefokg=920) ng/mL Ur Phencyclidine Scrn (Cutoff=25) ng/mL Ur Amphetamines Screen (Mmfnba=1504) ng/mL U Benzodiazepines Scrn (Xqvlgh=332) ng/mL Urine Cocaine Screen (Cutoff= 300) ng/mL U Marijuana (THC) Screen (Cutoff = 50) ng/mL Ur Drug Screen Interp Ethyl Alcohol (Less than 10) mg/dL 07/21/18 07/21/18 Range/Units 03:57 03:59 WBC (4.3-11.1) K/mcL RBC (4.19-5.50) M/mcL Hgb (12.9-16.9) g/dL Hct (37.5-50.1) % MCV (83.0-100.0) fL MCH (28.0-33.3) pg MCHC (31.6-35.5) g/dL RDW (11.5-14.5) % Plt Count (140-400) K/mcL MPV (9.4-12.4) fL Immature Gran % (0-4) % Seg Neutrophils % % Lymphocytes % % Monocytes % % Eosinophils % % Basophils % % Neutrophils # (1.6-8.9) K/mcL Lymphocytes # (0.6-4.6) K/mcL Monocytes # (0.0-1.3) K/mcL Eosinophils # (0.0-0.6) K/mcL Basophils # (0.0-0.2) K/mcL Sodium (136-145) mEq/L Potassium (3.5-5.1) mEq/L Chloride (98-107) mEq/L Carbon Dioxide (23-29) mEq/L BUN (6-20) mg/dL Creatinine (0.70-1.30) mg/dL Est GFR ( Amer) (> 60) Est GFR (Non-Af Amer) (> 60) BUN/Creatinine Ratio (6-26) Glucose (70-105) mg/dL POC Glucose 501 H* 556 H* (70-99) mg/dL Calculated Osmolality (280-300) Calcium (8.6-10.3) mg/dL Urine Color (Yellow) Urine Clarity (Clear) Urine pH (5.0-8.0) pH Units Ur Specific [place] (1.010-1.025) Urine Protein (Neg-Trace) mg/dL Urine Glucose (UA) (Normal) mg/dL Urine Ketones (Negative) mg/dL Urine Blood (Negative) Urine Nitrite (Negative) Urine Bilirubin (Negative) Urine Urobilinogen (Normal) mg/dL Ur Leukocyte Esterase (Negative) Salicylates (15.0-30.0) mg/dL Urine Opiates Screen (Epepdv=521) ng/mL Acetaminophen (10-20) mcg/mL Ur Barbiturates Screen (Cwfkcr=200) ng/mL Ur Phencyclidine Scrn (Cutoff=25) ng/mL Ur Amphetamines Screen (Syvsul=3331) ng/mL U Benzodiazepines Scrn (Eeyygr=849) ng/mL Urine Cocaine Screen (Cutoff= 300) ng/mL U Marijuana (THC) Screen (Cutoff = 50) ng/mL Ur Drug Screen Interp Ethyl Alcohol (Less than 10) mg/dL Critical Care Time Critical Care Time: Yes Total Critical Care Time: 30 Attestation: The high probability of a clinically significant, sudden or life threatening deterioration of the [] system(s) required my full and direct attention, intervention and personal management. The aggregate critical care time was [] minutes. This time is in addition to time spent performing reported procedures but includes the following: [] Data Review and interpretation [] Patient assessment and monitoring of vital signs [] Documentation [] Medication orders and management Attestation Statement - Attestation Attestation: Care of patient assumed from Dr. Mills and Michaela at 19:00 pending repeat blood sugar and transfer to the behavioral facility. Labs to this point reviewed by me. Patient appears in no acute distress. He has a known history of type I diabetes 19:30: The patient has been refusing his insulin. He refuses IV placement. He states he will not receive any subcutaneous insulin unless he gets more food. I did offer him an additional food tray as well as coffee. 04:00: The receiving behavioral facility has recommended ongoing blood sugar management with reassessment in the morning. The patient's blood sugars are labile but have peaked to greater than 500 at the time of this note. I am electing to administer a dose of long-acting insulin at this time but the patient refuses. 06:15: Care to be endorsed to the oncoming physician Dr. Grant pending glycemic control and attempt to transfer the patient to a behavioral facility
[2018-07-20] MEDS ORDERED: Insulin LISPRO 300 UNITS/3 ML VIAL SQ ONE (19:21)
[2018-07-21] MEDS ORDERED: Insulin LISPRO 300 UNITS/3 ML VIAL SQ ONE (04:00)
[2018-07-21] MEDS ORDERED: Insulin DETEMIR 100 UNIT/ML X5UNITS SQ ONE (04:02)
[2018-07-21] MEDS: Insulin NPH/REG 70/30 100 UNIT/ML (x5UNIT) SQ SCH ×2 (07:40→16:10)
[2018-07-21] MEDS ORDERED: Venlafaxine XR (24 HR) 150 MG CAP.ER.24H PO SCH (09:00)
--- NOTE | 2018-07-21 09:43 | Emergency Department Note ---
Disposition Clinical Impression: Suicidal ideation, Homicidal ideation, Abscess, Hyperglycemia Disposition: Still a Patient Referrals: NONE,PCP [Primary Care Provider] - Psych HPI - General Chief Complaint: ED Psychiatric Symptoms Stated Complaint: SI/HI Time Seen by Provider: 07/19/18 22:03 Source: patient, EMS, police - Related Data Previous Rx's Medication Instructions Recorded Gabapentin [Neurontin] 800 mg PO TID 14 Days #42 tablet 06/08/18 Insulin Aspart Prot/Insuln Asp 40 units SQ BID #4 insuln.pen 06/08/18 [Novolog Mix 70-30 Flexpen Syrn] Insulin LISPRO [HumaLOG] See Protocol SQ TIDAC #4 vial 06/08/18 Venlafaxine XR (24 HR) [Effexor Xr] 150 mg PO DAILY 14 Days #14 06/08/18 cap.er.24h Phenytoin ER [Dilantin ER] 100 mg PO TID 14 Days #42 capsule 07/03/18 Allergies Allergy/AdvReac Type Severity Reaction Status Date / Time insulin glargine Allergy Blister Verified 07/02/18 22:17 [From Lantus] diphenhydramine AdvReac Intermediate See Verified 07/02/18 22:17 [From Benadryl] Comments Constitutional: Denies: fever, chills Cardiovascular: Denies: chest pain, palpitations Respiratory: Denies: cough, dyspnea Gastrointestinal: Denies: abdominal pain, nausea, vomiting Genitourinary: Denies: urgency, dysuria Musculoskeletal: Denies: back pain Psychiatric: Reports: suicidal thoughts Past Medical History - Past Medical History Medical history: Reports: diabetes, hepatitis, seizures, other Surgical history: Reports: orthopedic, other Psychiatric history: Reports: anxiety, previous psychiatric hospitalization - Social History Smoking Status: Current every day smoker Smokeless Tobacco Status: No Alcohol use: Reports: rarely Drug use: Reports: opiates, marijuana, methamphetamine, IV Drug Use Physical Exam - General Limitations: no limitations General appearance: alert, in no apparent distress Course Course Narrative: I did take care of this patient on his initial evaluation. He has been in the emergency department awaiting placement at state facility secondary to our psychiatric team unable to take care of him secondary to safety concerns. The outlying facility that has agreed to accept him has unfortunately not accepted our medical clearance secondary to elevated blood sugars. Patient does have a history of elevated blood sugars and I do not believe that short-term control will be of long-term benefit for him however he is unable to be accepted until he has blood sugars less than 204 over multiple hours. He does have induration to the right forearm which I did ultrasound does not show underlying abscess. He was placed on Bactrim and Keflex upon arrival. This may be somewhat contributory to his elevated glucose however I believe noncompliance is more heavily favored. I did discuss with the hospitalist who expressed his concern as well for long- term control. We will get his blood sugars controlled in the emergency department but his long-term regimen and compliance is needed. Vital Signs Temperature 98.3 F 07/19/18 22:00 Pulse Rate 105 07/19/18 22:00 Respiratory Rate 20 07/19/18 22:00 Blood Pressure 162/108 07/19/18 22:00 O2 Sat by Pulse Oximetry 99 07/19/18 22:00 Temperature 98.3 F 07/19/18 22:00 Pulse Rate 72 07/21/18 08:55 Respiratory Rate 17 07/21/18 08:55 Blood Pressure 117/67 07/21/18 08:55 O2 Sat by Pulse Oximetry 98 07/21/18 08:55 Oxygen Delivery Oxygen Delivery Room Air Psych - Lab Data Result diagrams: 07/19/18 22:19 07/20/18 16:32 Lab Results 07/19/18 07/19/18 07/19/18 Range/Units 22:18 22:19 22:20 WBC 11.2 H (4.3-11.1) K/mcL RBC 4.64 (4.19-5.50) M/mcL Hgb 13.1 (12.9-16.9) g/dL Hct 39.7 (37.5-50.1) % MCV 85.6 (83.0-100.0) fL MCH 28.2 (28.0-33.3) pg MCHC 33.0 (31.6-35.5) g/dL RDW 13.5 (11.5-14.5) % Plt Count 272 (140-400) K/mcL MPV 9.4 (9.4-12.4) fL Immature Gran % 0.4 (0-4) % Seg Neutrophils % 68.3 % Lymphocytes % 22.2 % Monocytes % 7.7 % Eosinophils % 0.9 % Basophils % 0.5 % Neutrophils # 7.7 (1.6-8.9) K/mcL Lymphocytes # 2.5 (0.6-4.6) K/mcL Monocytes # 0.9 (0.0-1.3) K/mcL Eosinophils # 0.1 (0.0-0.6) K/mcL Basophils # 0.1 (0.0-0.2) K/mcL Sodium 131 L (136-145) mEq/L Potassium 4.1 (3.5-5.1) mEq/L Chloride 95 L (98-107) mEq/L Carbon Dioxide 26 (23-29) mEq/L BUN 13 (6-20) mg/dL Creatinine 0.71 (0.70-1.30) mg/dL Est GFR ( Amer) > 60 (> 60) Est GFR (Non-Af Amer) > 60 (> 60) BUN/Creatinine Ratio 18 (6-26) Glucose 336 H (70-105) mg/dL POC Glucose (70-99) mg/dL Calculated Osmolality 285 (280-300) Calcium 9.6 (8.6-10.3) mg/dL Urine Color Yellow (Yellow) Urine Clarity Clear (Clear) Urine pH 6.0 (5.0-8.0) pH Units Ur Specific [place] > 1.030 H (1.010-1.025) Urine Protein Negative (Neg-Trace) mg/dL Urine Glucose (UA) >=1000 H (Normal) mg/dL Urine Ketones 15 H (Negative) mg/dL Urine Blood Negative (Negative) Urine Nitrite Negative (Negative) Urine Bilirubin Negative (Negative) Urine Urobilinogen Normal (Normal) mg/dL Ur Leukocyte Esterase Negative (Negative) Salicylates < 2.5 L (15.0-30.0) mg/dL Urine Opiates Screen (Rdkxou=287) ng/mL Acetaminophen < 10 L (10-20) mcg/mL Ur Barbiturates Screen (Kfqyos=269) ng/mL Ur Phencyclidine Scrn (Cutoff=25) ng/mL Ur Amphetamines Screen (Apwsik=2246) ng/mL U Benzodiazepines Scrn (Ykhmhu=560) ng/mL Urine Cocaine Screen (Cutoff= 300) ng/mL U Marijuana (THC) Screen (Cutoff = 50) ng/mL Ur Drug Screen Interp Ethyl Alcohol 12 H (Less than 10) mg/dL 07/19/18 07/20/18 07/20/18 Range/Units 22:20 11:55 14:44 WBC (4.3-11.1) K/mcL RBC (4.19-5.50) M/mcL Hgb (12.9-16.9) g/dL Hct (37.5-50.1) % MCV (83.0-100.0) fL MCH (28.0-33.3) pg MCHC (31.6-35.5) g/dL RDW (11.5-14.5) % Plt Count (140-400) K/mcL MPV (9.4-12.4) fL Immature Gran % (0-4) % Seg Neutrophils % % Lymphocytes % % Monocytes % % Eosinophils % % Basophils % % Neutrophils # (1.6-8.9) K/mcL Lymphocytes # (0.6-4.6) K/mcL Monocytes # (0.0-1.3) K/mcL Eosinophils # (0.0-0.6) K/mcL Basophils # (0.0-0.2) K/mcL Sodium (136-145) mEq/L Potassium (3.5-5.1) mEq/L Chloride (98-107) mEq/L Carbon Dioxide (23-29) mEq/L BUN (6-20) mg/dL Creatinine (0.70-1.30) mg/dL Est GFR ( Amer) (> 60) Est GFR (Non-Af Amer) (> 60) BUN/Creatinine Ratio (6-26) Glucose (70-105) mg/dL POC Glucose 328 H 549 H* (70-99) mg/dL Calculated Osmolality (280-300) Calcium (8.6-10.3) mg/dL Urine Color (Yellow) Urine Clarity (Clear) Urine pH (5.0-8.0) pH Units Ur Specific [place] (1.010-1.025) Urine Protein (Neg-Trace) mg/dL Urine Glucose (UA) (Normal) mg/dL Urine Ketones (Negative) mg/dL Urine Blood (Negative) Urine Nitrite (Negative) Urine Bilirubin (Negative) Urine Urobilinogen (Normal) mg/dL Ur Leukocyte Esterase (Negative) Salicylates (15.0-30.0) mg/dL Urine Opiates Screen Negative (Deadyg=591) ng/mL Acetaminophen (10-20) mcg/mL Ur Barbiturates Screen Negative (Bkgfsy=020) ng/mL Ur Phencyclidine Scrn Negative (Cutoff=25) ng/mL Ur Amphetamines Screen Positive H (Uhpxok=0837) ng/mL U Benzodiazepines Scrn Negative (Pswtwn=792) ng/mL Urine Cocaine Screen Negative (Cutoff= 300) ng/mL U Marijuana (THC) Screen Negative (Cutoff = 50) ng/mL Ur Drug Screen Interp See Below Ethyl Alcohol (Less than 10) mg/dL 07/20/18 07/20/18 07/20/18 Range/Units 14:45 16:32 17:50 WBC (4.3-11.1) K/mcL RBC (4.19-5.50) M/mcL Hgb (12.9-16.9) g/dL Hct (37.5-50.1) % MCV (83.0-100.0) fL MCH (28.0-33.3) pg MCHC (31.6-35.5) g/dL RDW (11.5-14.5) % Plt Count (140-400) K/mcL MPV (9.4-12.4) fL Immature Gran % (0-4) % Seg Neutrophils % % Lymphocytes % % Monocytes % % Eosinophils % % Basophils % % Neutrophils # (1.6-8.9) K/mcL Lymphocytes # (0.6-4.6) K/mcL Monocytes # (0.0-1.3) K/mcL Eosinophils # (0.0-0.6) K/mcL Basophils # (0.0-0.2) K/mcL Sodium 128 L (136-145) mEq/L Potassium 4.6 (3.5-5.1) mEq/L Chloride 95 L (98-107) mEq/L Carbon Dioxide 27 (23-29) mEq/L BUN 19 (6-20) mg/dL Creatinine 0.91 (0.70-1.30) mg/dL Est GFR ( Amer) > 60 (> 60) Est GFR (Non-Af Amer) > 60 (> 60) BUN/Creatinine Ratio 21 (6-26) Glucose 564 H* (70-105) mg/dL POC Glucose 562 H* 409 H* (70-99) mg/dL Calculated Osmolality 294 (280-300) Calcium 8.6 (8.6-10.3) mg/dL Urine Color (Yellow) Urine Clarity (Clear) Urine pH (5.0-8.0) pH Units Ur Specific [place] (1.010-1.025) Urine Protein (Neg-Trace) mg/dL Urine Glucose (UA) (Normal) mg/dL Urine Ketones (Negative) mg/dL Urine Blood (Negative) Urine Nitrite (Negative) Urine Bilirubin (Negative) Urine Urobilinogen (Normal) mg/dL Ur Leukocyte Esterase (Negative) Salicylates (15.0-30.0) mg/dL Urine Opiates Screen (Fspznm=998) ng/mL Acetaminophen (10-20) mcg/mL Ur Barbiturates Screen (Vojgzh=454) ng/mL Ur Phencyclidine Scrn (Cutoff=25) ng/mL Ur Amphetamines Screen (Hnipey=7613) ng/mL U Benzodiazepines Scrn (Ppxxje=150) ng/mL Urine Cocaine Screen (Cutoff= 300) ng/mL U Marijuana (THC) Screen (Cutoff = 50) ng/mL Ur Drug Screen Interp Ethyl Alcohol (Less than 10) mg/dL 07/20/18 07/20/18 07/21/18 Range/Units 20:16 22:14 00:17 WBC (4.3-11.1) K/mcL RBC (4.19-5.50) M/mcL Hgb (12.9-16.9) g/dL Hct (37.5-50.1) % MCV (83.0-100.0) fL MCH (28.0-33.3) pg MCHC (31.6-35.5) g/dL RDW (11.5-14.5) % Plt Count (140-400) K/mcL MPV (9.4-12.4) fL Immature Gran % (0-4) % Seg Neutrophils % % Lymphocytes % % Monocytes % % Eosinophils % % Basophils % % Neutrophils # (1.6-8.9) K/mcL Lymphocytes # (0.6-4.6) K/mcL Monocytes # (0.0-1.3) K/mcL Eosinophils # (0.0-0.6) K/mcL Basophils # (0.0-0.2) K/mcL Sodium (136-145) mEq/L Potassium (3.5-5.1) mEq/L Chloride (98-107) mEq/L Carbon Dioxide (23-29) mEq/L BUN (6-20) mg/dL Creatinine (0.70-1.30) mg/dL Est GFR ( Amer) (> 60) Est GFR (Non-Af Amer) (> 60) BUN/Creatinine Ratio (6-26) Glucose (70-105) mg/dL POC Glucose 302 H 96 221 H (70-99) mg/dL Calculated Osmolality (280-300) Calcium (8.6-10.3) mg/dL Urine Color (Yellow) Urine Clarity (Clear) Urine pH (5.0-8.0) pH Units Ur Specific [place] (1.010-1.025) Urine Protein (Neg-Trace) mg/dL Urine Glucose (UA) (Normal) mg/dL Urine Ketones (Negative) mg/dL Urine Blood (Negative) Urine Nitrite (Negative) Urine Bilirubin (Negative) Urine Urobilinogen (Normal) mg/dL Ur Leukocyte Esterase (Negative) Salicylates (15.0-30.0) mg/dL Urine Opiates Screen (Rpqken=129) ng/mL Acetaminophen (10-20) mcg/mL Ur Barbiturates Screen (Cigeou=853) ng/mL Ur Phencyclidine Scrn (Cutoff=25) ng/mL Ur Amphetamines Screen (Kbowhr=5934) ng/mL U Benzodiazepines Scrn (Xouqyn=354) ng/mL Urine Cocaine Screen (Cutoff= 300) ng/mL U Marijuana (THC) Screen (Cutoff = 50) ng/mL Ur Drug Screen Interp Ethyl Alcohol (Less than 10) mg/dL 07/21/18 07/21/18 07/21/18 Range/Units 03:57 03:59 06:36 WBC (4.3-11.1) K/mcL RBC (4.19-5.50) M/mcL Hgb (12.9-16.9) g/dL Hct (37.5-50.1) % MCV (83.0-100.0) fL MCH (28.0-33.3) pg MCHC (31.6-35.5) g/dL RDW (11.5-14.5) % Plt Count (140-400) K/mcL MPV (9.4-12.4) fL Immature Gran % (0-4) % Seg Neutrophils % % Lymphocytes % % Monocytes % % Eosinophils % % Basophils % % Neutrophils # (1.6-8.9) K/mcL Lymphocytes # (0.6-4.6) K/mcL Monocytes # (0.0-1.3) K/mcL Eosinophils # (0.0-0.6) K/mcL Basophils # (0.0-0.2) K/mcL Sodium (136-145) mEq/L Potassium (3.5-5.1) mEq/L Chloride (98-107) mEq/L Carbon Dioxide (23-29) mEq/L BUN (6-20) mg/dL Creatinine (0.70-1.30) mg/dL Est GFR ( Amer) (> 60) Est GFR (Non-Af Amer) (> 60) BUN/Creatinine Ratio (6-26) Glucose (70-105) mg/dL POC Glucose 501 H* 556 H* 287 H (70-99) mg/dL Calculated Osmolality (280-300) Calcium (8.6-10.3) mg/dL Urine Color (Yellow) Urine Clarity (Clear) Urine pH (5.0-8.0) pH Units Ur Specific [place] (1.010-1.025) Urine Protein (Neg-Trace) mg/dL Urine Glucose (UA) (Normal) mg/dL Urine Ketones (Negative) mg/dL Urine Blood (Negative) Urine Nitrite (Negative) Urine Bilirubin (Negative) Urine Urobilinogen (Normal) mg/dL Ur Leukocyte Esterase (Negative) Salicylates (15.0-30.0) mg/dL Urine Opiates Screen (Rbtyjy=573) ng/mL Acetaminophen (10-20) mcg/mL Ur Barbiturates Screen (Tityhl=777) ng/mL Ur Phencyclidine Scrn (Cutoff=25) ng/mL Ur Amphetamines Screen (Uvrwqx=2250) ng/mL U Benzodiazepines Scrn (Flqpeq=962) ng/mL Urine Cocaine Screen (Cutoff= 300) ng/mL U Marijuana (THC) Screen (Cutoff = 50) ng/mL Ur Drug Screen Interp Ethyl Alcohol (Less than 10) mg/dL Psychiatric Medical Clearance - Medical Clearance Checklist Medical History: No Social History Section defined Current Vitals: Last Vital Signs Temp 98.3 F 07/19/18 22:00 Pulse 72 07/21/18 08:55 Resp 17 07/21/18 08:55 BP 117/67 07/21/18 08:55 Pulse Ox 98 07/21/18 08:55 Abnormal Labs: Abnormal lab results WBC 11.2 K/mcL (4.3-11.1) H 07/19/18 22:19 Sodium 128 mEq/L (136-145) L 07/20/18 16:32 Chloride 95 mEq/L (98-107) L 07/20/18 16:32 Glucose 564 mg/dL (70-105) H* 07/20/18 16:32 POC Glucose 287 mg/dL (70-99) H 07/21/18 06:36 Ur Specific [place] > 1.030 (1.010-1.025) H 07/19/18 22:20 Urine Glucose (UA) >=1000 mg/dL (Normal) H 07/19/18 22:20 Urine Ketones 15 mg/dL (Negative) H 07/19/18 22:20 Salicylates < 2.5 mg/dL (15.0-30.0) L 07/19/18 22:18 Acetaminophen < 10 mcg/mL (10-20) L 07/19/18 22:18 Ur Amphetamines Screen Positive ng/mL (Ljcnim=5986) H 07/19/18 22:20 Ethyl Alcohol 12 mg/dL (Less than 10) H 07/19/18 22:18 Statement of Medical Clearance: I have evaluated the patient, reviewed diagnostic information, and certify that the patient's medical condition is sufficiently stable that transfer to the psychiatric unit does not pose a significant risk of deterioration.
[2018-07-21] MEDS ORDERED: D5% in Water 1,000 ML IVC PRN (11:38)
[2018-07-21] MEDS ORDERED: *HR* Dextrose 50 % in Water (Syg) 50 ML SYRINGE IVP PRN (11:38)
[2018-07-21] MEDS ORDERED: Dextrose Gel 15 GM/37.5 ML TUBE PO PRN ×2 (11:38)
[2018-07-21] MEDS: cephALEXin 500 MG CAPSULE PO SCH ×3 (11:55→20:58)
[2018-07-21] MEDS: Gabapentin 400 MG CAPSULE PO SCH ×3 (11:59→20:58)
[2018-07-21] MEDS: Sulfamethoxazole/Trimeth DS 1 EACH TABLET PO SCH ×2 (11:59→20:58)
[2018-07-21] MEDS ORDERED: Naloxone 0.4 MG/ML INJ IVP PRN (13:36)
--- NOTE | 2018-07-21 13:58 | Internal Med History&Physical ---
Date of Encounter: 07/21/18 Time of Encounter: 12:15 Internal Medicine - H&P: HPI Chief complaint: Suicidal Ideations, Homicidal Ideations Admitted From: Home (Homeless) Plans for Post Hospital Care: Transfer Psych Facility History of present illness: Mr. Lemus is a 32 year old male with past medical history significant for psychiatric issues, diabetes, and drug use who presents for intermittent suicidal and homicidal ideations. Patient is pink slipped. Denies current suicidal plan, but states homicidal plan consists of stabbing people with a knife. States he would like help for his psychiatric issues but feels no one is listening to him. States he has had intermittent suicidal and homicidal ideations on and off for a long time as he is homeless and admits to drug abuse with opiates, methamphetamine, and marijuana. [facility] psychiatric team unable to take patient due to safety concerns, [facility] pending resolution of hyperglycemia. Blood sugars are uncontrolled on presentation to ER as patient denies checking his blood sugar or taking insulin. Also complains of skin induration on right forearm that he states has been there for about a week but is improving, denies any drainage or current treatment. Past Med Surg Social Fam HX - Past Medical History Medical history: diabetes, hepatitis, seizures, other Additional medical history: Hep C Psychiatric history: anxiety, previous psychiatric hospitalization - Past Surgical History Surgical History: orthopedic, other Additional surgical history: right ankle - Social History Smoking Status: Current every day smoker Smokeless Tobacco Status: No Alcohol use: rarely Drug use: opiates, marijuana, methamphetamine, IV Drug Use - Family History Father Family Member Ethnicity: Non- Living Status: Hx Family Cardiac Disorders: Yes ([place]) Hx Family Endocrine Disorder: Yes (DM) Mother History Unknown: Yes Family Member Ethnicity: Non- Living Status: Still Living Sister Family Member Ethnicity: Non- Living Status: Still Living Internal Medicine - H&P: Meds Gabapentin [Neurontin] 800 mg PO TID 14 Days #42 tablet 06/08/18 [Rx] Venlafaxine XR (24 HR) [Effexor Xr] 150 mg PO DAILY 14 Days #14 cap.er.24h 06/08 [Rx] Phenytoin ER [Dilantin ER] 100 mg PO TID 14 Days #42 capsule 07/03/18 [Rx] Insulin NPH Hum/Reg Insulin Hm [Novolin 70-30 100 Unit/ml Vial] 15 units SQ HS 07/21/18 [History] Insulin NPH Hum/Reg Insulin Hm [Novolin 70-30 100 Unit/ml Vial] 22 units SQ QAM 07/21/18 [History] Insulin Regular Human [Humulin R] 2 - 10 units SQ BIDWM 07/21/18 [History] 3 Allergy/AdvReac Type Severity Reaction Status Date / Time insulin glargine Allergy Blister Verified 07/02/18 22:17 [From Lantus] diphenhydramine AdvReac Intermediate See Verified 07/02/18 22:17 [From Benadryl] Comments All Systems PM: A 10-system review of systems was performed and is negative for pertinent findings except as documented above in the HPI. - Constitutional Vitals: Temp Pulse Resp BP Pulse Ox 97.5 F L 69 17 119/73 100 07/21/18 11:33 07/21/18 11:33 07/21/18 11:33 07/21/18 11:33 07/21/18 11:33 Exam: General: Alert and oriented. Intermittent suicidal and homicidal ideations. Skin:Normal color, no rash. 3mm skin induration to right forearm without redness or drainage, surrounding tissue intact. HEENT:EOM, pupils equal, round and reactive. Cardiovascular:Normal S1 & S2, no rubs, murmurs or gallops. No JVD. Pulse regular. Lungs:Normal breath sounds, no wheezes or crackles. Abdomen:Soft, non-tender, no rigidity. Extremities:No deformity, no edema or tenderness, no joint swelling or clubbing. Neurological:Appropriate cognition and motor skills. Pulses:Carotid and radial pulses normal +2. Rest of the physical exam is non contributory. Internal Med - H&P Results - Labs CBC & Chem 7: 07/19/18 22:19 07/20/18 16:32 - Assessment and plan (1) Homicidal ideation Current Visit: Yes Status: Acute Assessment and plan: [place] slipped. Psych consult. Bedside sitter. Suicide precautions. Pending transfer to outside psychiatric facility after blood sugars controlled. (2) Suicidal ideation Current Visit: Yes Status: Acute Assessment and plan: [place] slipped. Psych consult. Bedside sitter. Suicide precautions. Pending transfer to outside psychiatric facility after blood sugars controlled. (3) Hyperglycemia Current Visit: Yes Status: Acute Assessment and plan: Sliding scale insulin. Accu checks ACHS. Diabetic diet. (4) Induration of skin Current Visit: Yes Status: Acute Assessment and plan: Continue PO antibiotics. (5) Seizures Current Visit: No Status: Chronic Assessment and plan: Continue home medication. - Time Spent With Patient Total time spent is greater than 50% in coordination of care (as documented) at patient's floor/unit and/or counseling patient:
[2018-07-21] MEDS: Insulin LISPRO 300 UNITS/3 ML VIAL SQ SCH (16:11)
[2018-07-21] MEDS ORDERED: Insulin LISPRO 300 UNITS/3 ML VIAL SQ SCH (21:00)
[2018-07-21] MEDS ORDERED: Insulin DETEMIR 100 UNIT/ML X5UNITS SQ SCH (21:00)
[2018-07-21] MEDS ORDERED: *HR* LORazepam 2 MG/ML VIAL IVP ONE (21:05)
[2018-07-21] MEDS ORDERED: *HR* LORazepam 1 MG TABLET PO ONE (21:27)
[2018-07-22] MEDS ORDERED: Venlafaxine XR (24 HR) 150 MG CAP.ER.24H PO SCH (09:00)
[2018-07-22] MEDS: cephALEXin 500 MG CAPSULE PO SCH ×2 (09:55→15:24)
[2018-07-22] MEDS: Insulin NPH/REG 70/30 100 UNIT/ML (x5UNIT) SQ SCH (09:55)
[2018-07-22] MEDS: Insulin LISPRO 300 UNITS/3 ML VIAL SQ SCH (09:55)
[2018-07-22] MEDS: Gabapentin 400 MG CAPSULE PO SCH ×2 (09:56→15:23)
[2018-07-22] MEDS: Sulfamethoxazole/Trimeth DS 1 EACH TABLET PO SCH (09:56)
[2018-07-22] MEDS ORDERED: Insulin LISPRO 300 UNITS/3 ML VIAL SQ SCH ×2 (10:53→16:30)
[2018-07-22 13:18] LABS: Estimated Average Glucose 266 mg/dl; Hemoglobin A1C 10.9 %
[2018-07-22 14:27] LABS: BUN/Creatinine Ratio 17 (6-26); Blood Urea Nitrogen 14 mg/dL (6-20); Calcium 9.4 mg/dL (8.6-10.3); Carbon Dioxide 24 mEq/L (23-29); Chloride 106 mEq/L (98-107); Glucose 54 mg/dL (70-105); Osmolality,Calculated 266 (280-300); Potassium 4.2 mEq/L (3.5-5.1); Sodium 129 mEq/L (136-145); eGFR For Non-African Americans > 60 (> 60)
--- NOTE | 2018-07-22 14:41 | Discharge Summary ---
- NOTES TO OUTPATIENT PROVIDER Notes to Outpatient Provider: Homicidal ideation, anxiety, hyperglycemia; needs Psychiatry management and outpatient blood sugar monitoring; Date of Encounter: 07/22/18 Time of Encounter: 12:00 - Discharge Diagnosis (1) Hyperglycemia Priority: Primary Status: Acute (2) Suicidal ideation Priority: Primary Status: Acute (3) Seizures Priority: Secondary Status: Chronic (4) Homicidal ideation Priority: Primary Status: Acute (5) Hepatitis C Priority: Secondary Status: Chronic Qualifiers: Viral hepatitis chronicity: chronic Hepatic coma status: without hepatic coma Qualified Code(s): B18.2 - Chronic viral hepatitis C (6) IV drug abuse Priority: Secondary Status: Chronic (7) Major depressive disorder, recurrent severe without psychotic features Priority: Secondary Status: Chronic (8) Tobacco abuse Priority: Secondary Status: Chronic (9) Diabetes Priority: Secondary Status: Chronic Qualifiers: Diabetes mellitus type: type 1 Diabetes mellitus complication status: with hyperglycemia Qualified Code(s): E10.65 - Type 1 diabetes mellitus with hyperglycemia Hospital course: Mr. Lemus is a 32 year old male with history of type 1 diabetes, polysubstance abuse including IV heroin, major depression, who was admitted with extreme anxiety, hopelessness and homicidal ideation. Patient was noted to have hyperglycemia at admission, although he claims compliance with outpatient insulin regimen. I suspect noncompliance, in light of his homelessness, multiple psychosocial stressors and recent admission about 2 weeks ago for DKA due to medical noncompliance. HbA1C noted to be 10.9%. Patient was pink slipped in the emergency room, maintained on 1:1 sitter for safety. He was tried to be transferred to external inpatient psychiatry unit, who would not accept him due to hypoglycemia. He was started on basal bolus insulin regimen with subsequent improvement in blood sugars with a few readings of hypoglycemia. His insulin needs are titrated accordingly and he is currently medically stable for transfer to inpatient psychiatry unit with outpatient follow-up. Discharge discussed with: patient, nurse - Time Spent with Patient Total time spent providing and/or coordinating discharge services: Greater than 30 minutes (45 min) - Discharge Medications Home Medications: Gabapentin [Neurontin] 800 mg PO TID 14 Days #42 tablet 06/08/18 [Rx] Venlafaxine XR (24 HR) [Effexor Xr] 150 mg PO DAILY 14 Days #14 cap.er.24h 06/08 [Rx] Phenytoin ER [Dilantin ER] 100 mg PO TID 14 Days #42 capsule 07/03/18 [Rx] Insulin Regular Human [Humulin R] 2 - 10 units SQ BIDWM 07/21/18 [History] Insulin NPH Hum/Reg Insulin Hm [Novolin 70-30 100 Unit/ml Vial] 25 units SQ DAILY #0 07/22/18 [Rx] Insulin NPH Hum/Reg Insulin Hm [Novolin 70-30 100 Unit/ml Vial] 40 units SQ QAM #0 07/22/18 [Rx] Allergies/Adverse Reactions: 3 Allergy/AdvReac Type Severity Reaction Status Date / Time insulin glargine Allergy Blister Verified 07/02/18 22:17 [From Lantus] diphenhydramine AdvReac Intermediate See Verified 07/02/18 22:17 [From Benadryl] Comments Date of admission: 07/21/18 09:57 Primary care physician: PCP NONE Consults: 07/21/18 11:53 Consult to Manager Of Operations [CONS] Routine Reason for SW Consult: patient willing to go to rehab and is stating "I'm wanting help this time and I'm trying to get and no one will help me." 07/21/18 13:59 Consult to Psychiatry [CONS] Routine Consulting Provider: Psychiatry Elana Reason consult: Sitter/1:1 Other reason and/or additional details: ER previously contacted psych team. Discharging clinician: Cindy Bosch Anticipated date of discharge: 07/22/18 - Constitutional Vitals: Temp Pulse Resp BP Pulse Ox 98.1 F 91 18 134/89 94 07/22/18 11:00 07/22/18 11:00 07/22/18 11:00 07/22/18 11:00 07/22/18 11:00 General appearance: Present: A&O X 3, answers questions appropriately Exam: . - Cardiovascular Cardiovascular exam: Present: RRR, +S1, +S2. Absent: diastolic murmur, gallop, rubs, systolic murmur - Patient Status Disposition: Transfer Psychiatric Hosp Condition: Good Functional capacity at discharge: independent ambulation Overall status at discharge: patient is progressing back to baseline - Discharge Instructions Follow Up With: NONE,PCP [Primary Care Provider] - Forms: ED Satisfaction Letter Additional Instructions: F/up with PCP in 1-2 weeks - Diet and Activity Activity: resume usual activities as tolerated Diet: diabetic diet - VTE Reasons for not Prescribing Prophylaxis: Treatment not Indicated - Low risk for VTE
[2018-07-22 15:14] VITALS: BP 129/80
[2018-07-22] MEDS ORDERED: Insulin NPH/REG 70/30 100 UNIT/ML (x5UNIT) SQ SCH (21:00)
[2018-07-23] MEDS ORDERED: Insulin NPH/REG 70/30 100 UNIT/ML (x5UNIT) SQ SCH (09:00)
== END 2018-07-22 16:56 ==
LOC: 3BNU 21:55 → EMEROOARM 21:55 → SUATTDRO 07-21 09:57 → 3BNU 07-21 11:15
PROVIDERS: ADMIT Internal Medicine; ATTEND Internal Medicine

== ENCOUNTER 2018-07-31 22:40 | Observation (INO) ==
[2018-07-31 23:27] LABS: Bilirubin,Urine Negative (Negative); Blood,Urine Negative (Negative); Clarity,Urine Clear (Clear); Color,Urine Yellow (Yellow); Glucose,Urine (UA) >=1000 mg/dL (Normal); Ketones,Urine 80 mg/dL (Negative); Leukocyte Esterase,Urine Negative (Negative); Nitrite,Urine Negative (Negative); Protein,Urine Negative (Neg-Trace); Specific Gravity,Urine 1.026 (1.010-1.025); Urobilinogen,Urine Normal (Normal)
[2018-07-31 23:43] LABS: Basophils % 0.4 %; Eosinophils # 0.1 K/mcL (0.0-0.6); Eosinophils % 1.6 %; Hematocrit 34.8 % (37.5-50.1); Hemoglobin 11.6 g/dL (12.9-16.9); Immature Granulocytes % 0.3 % (0-4); Lymphocytes # 1.3 K/mcL (0.6-4.6); Lymphocytes % 17.8 %; Mean Corpuscular HGB Conc 33.3 g/dL (31.6-35.5); Mean Corpuscular Hemoglobin 28.7 pg (28.0-33.3); Mean Corpuscular Volume 86.1 fL (83.0-100.0); Mean Platelet Volume 9.7 fL (9.4-12.4); Monocytes # 0.8 K/mcL (0.0-1.3); Monocytes % 10.9 %; Neutrophils # 5.1 K/mcL (1.6-8.9); Platelet Count 252 K/mcL (140-400); Red Blood Count 4.04 M/mcL (4.19-5.50); Red Cell Distribution Width 13.5 % (11.5-14.5)
[2018-08-01] MEDS ORDERED: 0.9 % Sodium Chloride 1,000 ML IVC ONE ×2 (00:10→00:18)
[2018-08-01 00:15] LABS: Alanine Aminotransferase 71 Units/L (7-52); Albumin 4.1 g/dL (3.5-5.7); Albumin/Globulin Ratio 1.6 (1.1-2.2); Alkaline Phosphatase 113 Units/L (34-104); Aspartate Amino Transferase 66 Units/L (13-39); BUN/Creatinine Ratio 19 (6-26); Bilirubin,Direct 0.1 mg/dL (0.0-0.2); Bilirubin,Indirect 0.4 mg/dL (0.0-1.2); Bilirubin,Total 0.5 mg/dL (0.3-1.0); Blood Urea Nitrogen 19 mg/dL (6-20); Calcium 9.3 mg/dL (8.6-10.3); Carbon Dioxide 12 mEq/L (23-29); Chloride 94 mEq/L (98-107); Globulin 2.5 g/dL (2.4-3.5); Glucose 835 mg/dL (70-105); Lipase 3 Units/L (11-82); Osmolality,Calculated 309 (280-300); Potassium 4.9 mEq/L (3.5-5.1); Sodium 128 mEq/L (136-145); Total Protein 6.6 g/dL (6.4-8.9); eGFR For Non-African Americans > 60 (> 60)
[2018-08-01] MEDS ORDERED: Insulin Human Regular 10 UNIT in 0.9 % Sodium Chloride 10 ML IV ONE (00:17)
--- NOTE | 2018-08-01 00:22 | Emergency Department Note ---
Disposition Clinical Impression: DKA (diabetic ketoacidoses) Qualifiers: Diabetes mellitus type: type 1 Diabetes mellitus complication detail: without coma Qualified Code(s): E10.10 - Type 1 diabetes mellitus with ketoacidosis without coma Disposition: Admitted As Inpatient Condition: Good Referrals: NONE,PCP [Primary Care Provider] - Forms: ED Satisfaction Letter, Work/School Release Time of Disposition: 00:27 General Adult HPI - General Chief complaint: ED Abdominal Pain Stated complaint: flank pain right knee pain Time Seen by Provider: 07/31/18 22:50 Source: patient Limitations: no limitations Nursing Notes Reviewed: Yes Vital Signs Reviewed: Yes - History of Present Illness HPI Narrative: 32 year old male with extensive pysch history presents to the ED after beind discharged from the [facility] facility with complaints of flank pain and right knee pain. He states that he was being treated for small spot of cellutlis on his knee and on his hands and states that he did not recieve any dose of as outpatinet and was discharge a few days ago. Patient is also a noncompliants diabetic type I. Daniel has nonspecific complaints and states that he has been drinking water nonstop and has dark yellow urine with bilateral flank pain and is concnered he may have a UTI. Otherwise not experincing and chest or abdominal pain. Daniel appears drowsy at bedside. It appers he also has a history of hepatits. Pain Scale: 5 - Related Data Home Medications Medication Instructions Recorded Confirmed Insulin Regular Human [Humulin R] 2 - 10 units SQ BIDWM 07/21/18 07/21/18 Previous Rx's Medication Instructions Recorded Gabapentin [Neurontin] 800 mg PO TID 14 Days #42 tablet 06/08/18 Venlafaxine XR (24 HR) [Effexor Xr] 150 mg PO DAILY 14 Days #14 06/08/18 cap.er.24h Phenytoin ER [Dilantin ER] 100 mg PO TID 14 Days #42 capsule 07/03/18 Insulin NPH Hum/Reg Insulin Hm 25 units SQ DAILY #0 07/22/18 [Novolin 70-30 100 Unit/ml Vial] Insulin NPH Hum/Reg Insulin Hm 40 units SQ QAM #0 07/22/18 [Novolin 70-30 100 Unit/ml Vial] Allergies Allergy/AdvReac Type Severity Reaction Status Date / Time insulin glargine Allergy Blister Verified 07/02/18 22:17 [From Lantus] diphenhydramine AdvReac Intermediate See Verified 07/02/18 22:17 [From Benadryl] Comments Constitutional: Denies: fever, chills, weakness, weight change Eyes: Denies: eye pain, eye discharge, vision change ENT ED: Denies: ear pain, throat pain, dental pain, hearing loss, epistaxis, congestion, dysphagia Cardiovascular: Denies: chest pain, palpitations, dyspnea on exertion, edema, syncope Respiratory: Denies: cough, dyspnea, wheezes, hemoptysis, stridor Gastrointestinal: Denies: abdominal pain, nausea, vomiting, diarrhea, constipation, hematemesis, melena, hematochezia Genitourinary: Denies: urgency, dysuria, frequency, hematuria Musculoskeletal: Reports: back pain (bilateral flank pain), other (right knee pain). Denies: neck pain, arthralgia, myalgia Integumentary: Denies: rash, abrasion, lesions Neurological: Denies: headache, weakness, numbness, paresthesias, confusion, abnormal gait, vertigo Psychiatric: Denies: anxiety, depression, suicidal thoughts, homicidal thoughts , auditory hallucinations, visual hallucinations Endocrine: Denies: fatigue Hematological/Lymphatic: Denies: easy bleeding, easy bruising Allergic/Immunologic: Denies: facial swelling, urticaria Past Medical History - Past Medical History Medical history: Reports: diabetes, hepatitis, seizures, other Surgical history: Reports: orthopedic, other Psychiatric history: Reports: anxiety, previous psychiatric hospitalization - Social History Smoking Status: Current every day smoker Smokeless Tobacco Status: No Alcohol use: Reports: rarely Drug use: Reports: opiates, marijuana, methamphetamine, IV Drug Use Physical Exam - General Limitations: no limitations General appearance: alert, anxious - Head Head exam: atraumatic, normocephalic, normal inspection - Eye Eye exam: Present: normal appearance, PERRL, EOMI - Expanded Eye Exam Pupils: Bilateral: reactive - ENT ENT exam: normal exam, normal oropharynx, mucous membranes moist - Expanded ENT Exam External ear exam: Present: normal external inspection Mouth exam: Present: normal external inspection Teeth exam: Present: normal inspection Throat exam: Present: normal inspection - Neck Neck exam: Present: normal inspection, full ROM, trachea midline - Chest Chest inspection: Present: normal inspection, symmetric chest wall rise - Respiratory Respiratory exam: Present: normal lung sounds bilaterally - Cardiovascular Cardiovascular exam: Present: regular rate, normal rhythm, normal heart sounds - Abdominal Exam Abdominal exam: Present: soft, Non-Tender. Absent: tenderness, distention, guarding, rebound, rigidity - Extremities Exam Extremities exam: Present: normal inspection, full ROM. Absent: tenderness, pedal edema - Expanded Upper Extremity Exam Shoulder exam: Present: normal inspection, full ROM Arm exam: Present: normal inspection, full ROM Elbow exam: Present: normal inspection, full ROM Forearm/Wrist exam: Present: normal inspection, full ROM Hand exam: Present: normal inspection, full ROM Vascular exam: Normal: capillary refill, radial pulse - Expanded Lower Extremity Exam Hip/Pelvis exam: Present: normal inspection, full ROM Upper leg exam: Present: normal inspection, full ROM Knee exam: Present: normal inspection, full ROM, other (areas of cellulitis changes to the right knee, does not appear to be a septic joint) Lower leg exam: Present: normal inspection, full ROM Ankle exam: Present: normal inspection, full ROM Foot/toe exam: Present: normal inspection, full ROM Neurovascular/Tendon exam: Absent: motor deficit, sensory deficit, tendon deficit - Back Exam Back exam: Present: normal inspection, full ROM. Absent: tenderness - Neurological Exam Neurological exam: Present: alert, oriented X3 - Expanded Neurological Exam Patient oriented to: Present: person, place, time Coma Scale Eye Opening: Spontaneous Coma Scale Motor Response: Obeys Commands Coma Scale Verbal Response: Oriented Coma Scale Total: 15 - Psychiatric Psychiatric exam: Present: normal affect, normal mood - Skin Skin exam: Present: warm, dry, intact, normal color, other (scabies like appearance to the webs of the bilateral hands ) Course Course Narrative: daniel has an elevated blood sugar of 835, we will continue with DKA workup and start IVF and insulin and admit to medicine. - Consultations Consultation #1: discussed case with Dr. Rubin and he accepts daniel for admission will need ICU or step down Time: 01:26 Vital Signs Temperature 97.9 F 07/31/18 22:44 Pulse Rate 99 07/31/18 22:44 Respiratory Rate 20 07/31/18 22:44 Blood Pressure 144/82 07/31/18 22:44 O2 Sat by Pulse Oximetry 99 07/31/18 22:44 Temperature 97.9 F 07/31/18 22:44 Pulse Rate 83 08/01/18 01:02 Respiratory Rate 16 08/01/18 01:02 Blood Pressure 139/91 08/01/18 01:02 O2 Sat by Pulse Oximetry 100 08/01/18 01:02 Oxygen Delivery Oxygen Delivery Room Air Medical Decision Making - Medical Records Medical records reviewed: Yes I reviewed the patient's medical records. - Lab Data Lab results reviewed: Yes I reviewed the patient's lab results. Result diagrams: 07/31/18 23:07 07/31/18 23:07 Lab Results 07/31/18 07/31/18 07/31/18 Range/Units 23:07 23:07 23:13 WBC 7.4 (4.3-11.1) K/mcL RBC 4.04 L (4.19-5.50) M/mcL Hgb 11.6 L (12.9-16.9) g/dL Hct 34.8 L (37.5-50.1) % MCV 86.1 (83.0-100.0) fL MCH 28.7 (28.0-33.3) pg MCHC 33.3 (31.6-35.5) g/dL RDW 13.5 (11.5-14.5) % Plt Count 252 (140-400) K/mcL MPV 9.7 (9.4-12.4) fL Immature Gran % 0.3 (0-4) % Seg Neutrophils % 69.0 % Lymphocytes % 17.8 % Monocytes % 10.9 % Eosinophils % 1.6 % Basophils % 0.4 % Neutrophils # 5.1 (1.6-8.9) K/mcL Lymphocytes # 1.3 (0.6-4.6) K/mcL Monocytes # 0.8 (0.0-1.3) K/mcL Eosinophils # 0.1 (0.0-0.6) K/mcL Basophils # 0.0 (0.0-0.2) K/mcL VBG pH (7.32-7.42) pH Units VBG pCO2 (41-51) mmHg VBG pO2 (25-50) mmHg VBG HCO3 (21-27) mEq/L Sodium 128 L (136-145) mEq/L Potassium 4.9 (3.5-5.1) mEq/L Chloride 94 L (98-107) mEq/L Carbon Dioxide 12 L (23-29) mEq/L BUN 19 (6-20) mg/dL Creatinine 0.98 (0.70-1.30) mg/dL Est GFR ( Amer) > 60 (> 60) Est GFR (Non-Af Amer) > 60 (> 60) BUN/Creatinine Ratio 19 (6-26) Glucose 835 H* (70-105) mg/dL Calculated Osmolality 309 H (280-300) Lactic Acid (0.5-2.2) mmol/L Calcium 9.3 (8.6-10.3) mg/dL Total Bilirubin 0.5 (0.3-1.0) mg/dL Direct Bilirubin 0.1 (0.0-0.2) mg/dL Indirect Bilirubin 0.4 (0.0-1.2) mg/dL AST 66 H (13-39) Units/L ALT 71 H (7-52) Units/L Alkaline Phosphatase 113 H (34-104) Units/L Serum Total Protein 6.6 (6.4-8.9) g/dL Albumin 4.1 (3.5-5.7) g/dL Globulin 2.5 (2.4-3.5) g/dL Albumin/Globulin Ratio 1.6 (1.1-2.2) Lipase 3 L (11-82) Units/L Beta-Hydroxybutyric Acd (0.02-0.27) mmol/L Urine Color Yellow (Yellow) Urine Clarity Clear (Clear) Urine pH 6.0 (5.0-8.0) pH Units Ur Specific Mcintyre 1.026 H (1.010-1.025) Urine Protein Negative (Neg-Trace) mg/dL Urine Glucose (UA) >=1000 H (Normal) mg/dL Urine Ketones 80 H (Negative) mg/dL Urine Blood Negative (Negative) Urine Nitrite Negative (Negative) Urine Bilirubin Negative (Negative) Urine Urobilinogen Normal (Normal) mg/dL Ur Leukocyte Esterase Negative (Negative) Ur Culture Indicated? NO (NO) 08/01/18 08/01/18 08/01/18 Range/Units 00:48 00:48 01:00 WBC (4.3-11.1) K/mcL RBC (4.19-5.50) M/mcL Hgb (12.9-16.9) g/dL Hct (37.5-50.1) % MCV (83.0-100.0) fL MCH (28.0-33.3) pg MCHC (31.6-35.5) g/dL RDW (11.5-14.5) % Plt Count (140-400) K/mcL MPV (9.4-12.4) fL Immature Gran % (0-4) % Seg Neutrophils % % Lymphocytes % % Monocytes % % Eosinophils % % Basophils % % Neutrophils # (1.6-8.9) K/mcL Lymphocytes # (0.6-4.6) K/mcL Monocytes # (0.0-1.3) K/mcL Eosinophils # (0.0-0.6) K/mcL Basophils # (0.0-0.2) K/mcL VBG pH 7.41 (7.32-7.42) pH Units VBG pCO2 24 L (41-51) mmHg VBG pO2 171 H (25-50) mmHg VBG HCO3 15 L (21-27) mEq/L Sodium (136-145) mEq/L Potassium (3.5-5.1) mEq/L Chloride (98-107) mEq/L Carbon Dioxide (23-29) mEq/L BUN (6-20) mg/dL Creatinine (0.70-1.30) mg/dL Est GFR ( Amer) (> 60) Est GFR (Non-Af Amer) (> 60) BUN/Creatinine Ratio (6-26) Glucose (70-105) mg/dL Calculated Osmolality (280-300) Lactic Acid 0.9 (0.5-2.2) mmol/L Calcium (8.6-10.3) mg/dL Total Bilirubin (0.3-1.0) mg/dL Direct Bilirubin (0.0-0.2) mg/dL Indirect Bilirubin (0.0-1.2) mg/dL AST (13-39) Units/L ALT (7-52) Units/L Alkaline Phosphatase (34-104) Units/L Serum Total Protein (6.4-8.9) g/dL Albumin (3.5-5.7) g/dL Globulin (2.4-3.5) g/dL Albumin/Globulin Ratio (1.1-2.2) Lipase (11-82) Units/L Beta-Hydroxybutyric Acd > 2.00 H (0.02-0.27) mmol/L Urine Color (Yellow) Urine Clarity (Clear) Urine pH (5.0-8.0) pH Units Ur Specific Mcintyre (1.010-1.025) Urine Protein (Neg-Trace) mg/dL Urine Glucose (UA) (Normal) mg/dL Urine Ketones (Negative) mg/dL Urine Blood (Negative) Urine Nitrite (Negative) Urine Bilirubin (Negative) Urine Urobilinogen (Normal) mg/dL Ur Leukocyte Esterase (Negative) Ur Culture Indicated? (NO) - Radiology Data Radiology results reviewed: Yes I reviewed the patient's radiology results. - EKG Data EKG #1 EKG attestation: Yes I reviewed and interpreted this EKG. EKG results narrative: NSR with rate of 89. NO STEMI. normal intervals/ early repol on ekg. no change from 07/02/18. [id number]
[2018-08-01 01:06] LABS: VBG HCO3 15 mEq/L (21-27); VBG PCO2 24 mmHg (41-51); VBG PH 7.41 pH Units (7.32-7.42); VBG PO2 171 mmHg (25-50)
[2018-08-01] MEDS ORDERED: *HR* Dextrose 50 % in Water (Syg) 50 ML SYRINGE IVP PRN ×3 (01:07→17:12)
[2018-08-01] MEDS ORDERED: Insulin Human Regular 100 UNIT in 0.9 % Sodium Chloride 100 ML IVC SCH ×2 (01:15→03:15)
[2018-08-01] MEDS ORDERED: Insulin LISPRO 300 UNITS/3 ML VIAL SQ PRN (02:57)
[2018-08-01] MEDS ORDERED: Naloxone 0.4 MG/ML INJ IVP PRN (02:57)
[2018-08-01] MEDS ORDERED: D5% in 0.45% NACL 1,000 ML IVC PRN (03:07)
[2018-08-01] MEDS ORDERED: D5% in 0.45% NACL w KCl 20 MEQ/1,000 ML MLS IVC PRN (03:07)
[2018-08-01] MEDS ORDERED: 0.9 % Sodium Chloride w KCl 20 MEQ/1,000 ML MLS IVC ONE (03:20)
[2018-08-01] MEDS: 0.9 % Sodium Chloride w KCl 20 MEQ/1,000 ML MLS IVC SCH ×2 (03:28→05:27)
[2018-08-01 04:01] LABS: Basophils % 0.5 %; Eosinophils # 0.1 K/mcL (0.0-0.6); Eosinophils % 2.2 %; Hematocrit 36.6 % (37.5-50.1); Hemoglobin 12.3 g/dL (12.9-16.9); Immature Granulocytes % 0.5 % (0-4); Lymphocytes # 1.5 K/mcL (0.6-4.6); Lymphocytes % 23.7 %; Mean Corpuscular HGB Conc 33.6 g/dL (31.6-35.5); Mean Corpuscular Hemoglobin 28.6 pg (28.0-33.3); Mean Corpuscular Volume 85.1 fL (83.0-100.0); Mean Platelet Volume 9.1 fL (9.4-12.4); Monocytes # 0.7 K/mcL (0.0-1.3); Monocytes % 10.6 %; Platelet Count 226 K/mcL (140-400); Red Cell Distribution Width 13.6 % (11.5-14.5); Segmented Neutrophils % 62.5 %
[2018-08-01 04:05] LABS: VBG HCO3 22 mEq/L (21-27); VBG PCO2 41 mmHg (41-51); VBG PH 7.33 pH Units (7.32-7.42); VBG PO2 174 mmHg (25-50)
[2018-08-01 04:21] LABS: Alanine Aminotransferase 64 Units/L (7-52); Albumin 3.6 g/dL (3.5-5.7); Albumin/Globulin Ratio 1.6 (1.1-2.2); Alkaline Phosphatase 103 Units/L (34-104); Aspartate Amino Transferase 58 Units/L (13-39); BUN/Creatinine Ratio 22 (6-26); Bilirubin,Total 0.5 mg/dL (0.3-1.0); Blood Urea Nitrogen 15 mg/dL (6-20); Calcium 8.7 mg/dL (8.6-10.3); Carbon Dioxide 19 mEq/L (23-29); Chloride 102 mEq/L (98-107); Globulin 2.3 g/dL (2.4-3.5); Glucose 365 mg/dL (70-105); Osmolality,Calculated 292 (280-300); Potassium 3.7 mEq/L (3.5-5.1); Sodium 133 mEq/L (136-145); Total Protein 5.9 g/dL (6.4-8.9); eGFR For Non-African Americans > 60 (> 60)
[2018-08-01] MEDS ORDERED: Insulin NPH/REG 70/30 100 UNIT/ML (x5UNIT) SQ ONE (04:29)
[2018-08-01] MEDS ORDERED: Dextrose Gel 15 GM/37.5 ML TUBE PO PRN ×3 (05:40→17:12)
[2018-08-01] MEDS ORDERED: D5% in Water 1,000 ML IVC PRN ×2 (05:40→17:12)
[2018-08-01] MEDS ORDERED: Insulin LISPRO 300 UNITS/3 ML VIAL SQ SCH ×2 (07:30→21:00)
--- NOTE | 2018-08-01 08:41 | Event Note ---
Date of Encounter: 08/01/18 Time of Encounter: 05:00 H&P to follow however, in short Patient is a 32-year-old male with a extensive psychiatric history who presented to the ED with a chief complaint of flank pain and right knee pain. Was found to have abnormal lab work consistent with DKA with non-anion gap metabolic acidosis, blood glucose of 835, and elevated beta hydroxybutyric acid. X-ray of the knee was unremarkable. Patient has history of noncompliance with diabetes medications which is believed to be the cause of his current presentation. No evidence of infection. Patient was admitted and and started on treatment for DKA.
[2018-08-01] MEDS ORDERED: Insulin DETEMIR 100 UNIT/ML X5UNITS SQ SCH (09:00)
--- NOTE | 2018-08-01 09:24 | Internal Med History&Physical ---
Date of Encounter: 08/02/18 Time of Encounter: 02:00 Internal Medicine - H&P: HPI Chief complaint: Flank and Knee pain History of present illness: Patient is a 32-year-old male with a extensive psychiatric history who presented to the ED with a chief complaint of flank pain and right knee pain. Patient was a poor historian and resistant providing of a history and just wanted to be left alone. According to medical records, he had noted dark yellow urine associated with bilateral flank pain and became concerned about possible urinary tract infection. Upon admission to the ED patient was found to have abnormal lab work consistent with DKA with non-anion gap metabolic acidosis, blood glucose of 835, and elevated beta hydroxybutyric acid. X-ray of the knee was unremarkable. Patient has history of noncompliance with diabetes medications which is believed to be the cause of his current presentation. No evidence of infection. Patient was admitted and and started on treatment for DKA. Past Med Surg Social Fam HX - Past Medical History Medical history: diabetes, hepatitis, seizures, other Additional medical history: Hep C Psychiatric history: anxiety, previous psychiatric hospitalization - Past Surgical History Surgical History: orthopedic, other Additional surgical history: right ankle - Social History Smoking Status: Current every day smoker Smokeless Tobacco Status: No Alcohol use: rarely Drug use: opiates, marijuana, methamphetamine, IV Drug Use - Family History Father Family Member Ethnicity: Non- Living Status: Hx Family Cardiac Disorders: Yes (DE) Hx Family Endocrine Disorder: Yes (DM) Mother Family Member Ethnicity: Non- Living Status: Still Living Sister Family Member Ethnicity: Non- Living Status: Still Living Internal Medicine - H&P: Meds Gabapentin [Neurontin] 800 mg PO TID 14 Days #42 tablet 06/08/18 [Rx] Venlafaxine XR (24 HR) [Effexor Xr] 150 mg PO DAILY 14 Days #14 cap.er.24h 06/08 [Rx] Phenytoin ER [Dilantin ER] 100 mg PO TID 14 Days #42 capsule 07/03/18 [Rx] Insulin Regular Human [Humulin R] 2 - 10 units SQ BIDWM 07/21/18 [History] Insulin NPH Hum/Reg Insulin Hm [Novolin 70-30 100 Unit/ml Vial] 40 units SQ QAM #0 07/22/18 [Rx] 3 Allergy/AdvReac Type Severity Reaction Status Date / Time insulin glargine Allergy Blister Verified 07/02/18 22:17 [From Lantus] diphenhydramine AdvReac Intermediate See Verified 07/02/18 22:17 [From Benadryl] Comments All Systems PM: A 10-system review of systems was performed and is negative for pertinent findings except as documented above in the HPI. - Constitutional Constitutional: no chills, no fever(s), no night sweats - EENT Eyes: no change in vision, no discharge, no pain, no photophobia Ears: no ear discharge, no ear pain, no tinnitus Nose, mouth and throat: no dysphagia, no nasal discharge, no neck pain, no sore throat - Cardiovascular Cardiovascular ROS IM: no chest pain, no diaphoresis, no dyspnea, no lightheadedness, no palpitations, no syncope - Respiratory Respiratory: no cough, no dyspnea, no wheezing, no excessive phlegm production - Gastrointestinal Gastrointestinal: no abdominal pain, no diarrhea, no hematemesis, no hematochezia, no melena, no nausea, no vomiting - Musculoskeletal Musculoskeletal ROS IM: no numbness, no tingling - Integumentary Integumentary IM: no rash, no unusual bruising - Neurological Neurological ROS: no confusion, no convulsions, no focal weakness, no numbness, no tingling, no tremor(s) - Hematologic/Lymphatic Hematologic/Lymphatic: no easy bruising - Constitutional Vitals: Temp Pulse Resp BP Pulse Ox 97.5 F L 70 16 123/95 100 08/01/18 06:47 08/01/18 06:47 08/01/18 06:47 08/01/18 06:47 08/01/18 06:47 Exam: General: Alert and oriented 3. Lying in bed asleep and resistant to examination Skin:Normal color, no rash, no lesions. HEENT:EOM, pupils equal, round and reactive. Cardiovascular:Normal S1 & S2, no rubs, murmurs or gallops. No JVD. Pulse regular. Lungs:Normal breath sounds, no wheezes or crackles. Abdomen:Soft, non-tender, no rigidity. Extremities:No deformity, mild edema of the right knee; nonerythematous nontender. Neurological:Normal cognition and motor skills. Pulses:Carotid and radial pulses normal +2. Rest of the physical exam is non contributory Internal Med - H&P Results - Labs CBC & Chem 7: 08/02/18 03:59 08/02/18 03:59 Labs: Short CBC 08/01/18 Range/Units 03:51 WBC 6.3 (4.3-11.1) K/mcL Hgb 12.3 L (12.9-16.9) g/dL Hct 36.6 L (37.5-50.1) % Plt Count 226 (140-400) K/mcL Neutrophils # 4.0 (1.6-8.9) K/mcL BMP 08/01/18 03:51 Sodium 133 L Potassium 3.7 Chloride 102 Carbon Dioxide 19 L BUN 15 Creatinine 0.69 L Glucose 365 H Calcium 8.7 Liver Function 08/01/18 Range/Units 03:51 Total Bilirubin 0.5 (0.3-1.0) mg/dL AST 58 H (13-39) Units/L ALT 64 H (7-52) Units/L Alkaline Phosphatase 103 (34-104) Units/L Albumin 3.6 (3.5-5.7) g/dL - ABG Interpretation ABG results: 08/01/18 04:01 VBG pH 7.33 VBG pCO2 41 VBG pO2 174 H VBG HCO3 22 - Assessment and plan (1) DKA (diabetic ketoacidoses) Current Visit: Yes Status: Acute Assessment and plan: Likely secondary to medication noncompliance. No evidence of infection. No white blood cell count; patient afebrile. Patient received 2 L of fluid boluses along with potassium in the ED. We continue patient DKA protocol. Consultation sr. social media & mobile manager due to history of medication noncompliance. Qualifiers: Diabetes mellitus type: type 1 Diabetes mellitus complication detail: without coma Qualified Code(s): E10.10 - Type 1 diabetes mellitus with ketoacidosis without coma (2) Hyperglycemia Current Visit: No Status: Acute Assessment and plan: Blood glucose greater than 800. Patient will be started on insulin drip for DKA. (3) Hyponatremia Current Visit: No Status: Resolved Assessment and plan: Hyponatremia secondary to hyperglycemia. We will monitor for correction with treatment of DKA. (4) Diabetes Current Visit: No Status: Chronic Assessment and plan: As above. Qualifiers: Diabetes mellitus type: type 1 Diabetes mellitus complication status: with hyperglycemia Qualified Code(s): E10.65 - Type 1 diabetes mellitus with hyperglycemia (5) Antisocial personality disorder Current Visit: No Status: Chronic Assessment and plan: Continue with home psychiatric medications - Time Spent With Patient Total time spent is greater than 50% in coordination of care (as documented) at patient's floor/unit and/or counseling patient:
[2018-08-01] MEDS: *HR* Heparin 5,000 UNIT/ML VIAL SQ SCH ×2 (14:36→20:46)
[2018-08-01] MEDS: Gabapentin 400 MG CAPSULE PO SCH ×2 (14:55→20:45)
[2018-08-01] MEDS ORDERED: Insulin LISPRO 300 UNITS/3 ML VIAL SQ ONE (17:11)
[2018-08-01] MEDS: Insulin NPH/REG 70/30 100 UNIT/ML (x5UNIT) SQ SCH (17:49)
--- NOTE | 2018-08-01 19:47 | Event Note ---
Date of Encounter: 08/01/18 Time of Encounter: 19:45 Patient seen and evaluated. Hypoglycemic Medications adjusted, ad Gap has closed. Hemodynamically stable.
[2018-08-01] MEDS: Insulin LISPRO 300 UNITS/3 ML VIAL SQ SCH (20:45)
[2018-08-02 04:16] LABS: Basophils % 0.3 %; Eosinophils # 0.2 K/mcL (0.0-0.6); Eosinophils % 3.5 %; Hematocrit 38.3 % (37.5-50.1); Hemoglobin 12.5 g/dL (12.9-16.9); Immature Granulocytes % 0.2 % (0-4); Lymphocytes # 1.7 K/mcL (0.6-4.6); Lymphocytes % 28.8 %; Mean Corpuscular HGB Conc 32.6 g/dL (31.6-35.5); Mean Corpuscular Hemoglobin 27.7 pg (28.0-33.3); Mean Corpuscular Volume 84.7 fL (83.0-100.0); Mean Platelet Volume 9.3 fL (9.4-12.4); Monocytes # 0.4 K/mcL (0.0-1.3); Monocytes % 7.3 %; Neutrophils # 3.5 K/mcL (1.6-8.9); Platelet Count 263 K/mcL (140-400); Red Blood Count 4.52 M/mcL (4.19-5.50); Red Cell Distribution Width 13.7 % (11.5-14.5); Segmented Neutrophils % 59.9 %
[2018-08-02 04:39] LABS: BUN/Creatinine Ratio 19 (6-26); Blood Urea Nitrogen 10 mg/dL (6-20); Calcium 8.7 mg/dL (8.6-10.3); Carbon Dioxide 25 mEq/L (23-29); Chloride 106 mEq/L (98-107); Glucose 165 mg/dL (70-105); Magnesium 1.6 mg/dL (1.6-2.6); Osmolality,Calculated 287 (280-300); Potassium 3.6 mEq/L (3.5-5.1); Sodium 137 mEq/L (136-145); eGFR For Non-African Americans > 60 (> 60)
[2018-08-02] MEDS: *HR* Heparin 5,000 UNIT/ML VIAL SQ SCH ×3 (05:05→21:39)
[2018-08-02] MEDS: Gabapentin 400 MG CAPSULE PO SCH ×3 (08:40→20:53)
[2018-08-02] MEDS: Insulin LISPRO 300 UNITS/3 ML VIAL SQ SCH ×4 (08:41→20:53)
[2018-08-02] MEDS: Venlafaxine XR (24 HR) 150 MG CAP.ER.24H PO SCH (08:41)
[2018-08-02] MEDS: Insulin NPH/REG 70/30 100 UNIT/ML (x5UNIT) SQ SCH ×2 (08:42→18:52)
--- NOTE | 2018-08-02 14:35 | Internal Med Progress Note ---
Hospitalist Progress Note - Encounter Date of Encounter: 08/02/18 Time of Encounter: 14:33 - Subjective Interval History: Patient denies any chest pain, shortness of breath, fevers or chills. His blood sugars have been in the high range since this morning. Variably between 180-200. On close questioning the patient does not know how to use a sliding scale insulin and has been a frequent flyer with multiple admissions for impaired blood glucose control. He is also homeless and does not have a glucometer - Exam Vitals: Temp Pulse Resp BP Pulse Ox 98.2 F 77 17 142/88 97 08/02/18 11:13 08/02/18 11:13 08/02/18 11:13 08/02/18 11:13 08/02/18 11:13 Exam: General: Alert and oriented 3. Cardiovascular:Normal S1 & S2, no rubs, murmurs or gallops. No JVD. Pulse regular. Lungs:Normal breath sounds, no wheezes or crackles. Abdomen:Soft, non-tender, no rigidity. Extremities:No deformity, mild edema of the right knee; nonerythematous nontender. - Assessment and Plan (1) Diabetes Current Visit: No Status: Chronic Assessment and Plan: Continues to have impaired blood glucose control. Continue serial Accu-Cheks. Consult clinical document improvement educator Patient is to have a good dietary guidance as well as a set of her home glucometer use. He remains a high risk if these things are not established. I have discussed this plan of care with the RN in detail as well. Case management made aware and transition social worker is looking into arranging diabetes supplies He ultimately was to go to a [facility] in [place] (2) Hyperglycemia Current Visit: No Status: Acute Assessment and Plan: Not indicate this point. Blood glucose control plan of care as mentioned above (3) Antisocial personality disorder Current Visit: No Status: Chronic Assessment and Plan: Continue with home psychiatric medications Social work aware of psychiatric challenges with this position. (4) DKA (diabetic ketoacidoses) Current Visit: Yes Status: Resolved Assessment and Plan: Likely secondary to medication noncompliance. No evidence of infection. No white blood cell count; patient afebrile. Patient received 2 L of fluid boluses along with potassium in the ED. We continue patient DKA protocol. Consultation social insurance administrator due to history of medication noncompliance. 08/02-DKA resolved. (5) Hyponatremia Current Visit: No Status: Resolved - Time Spent with Patient Total time spent is greater than 50% in coordination of care (as documented) at patient's floor/unit and/or counseling patient: 25 - 35 minutes Plan of Care Discussed with: patient Internal Medicine: Result - Labs CBC & Chem 7: 08/02/18 03:59 08/02/18 03:59 Labs: Short CBC 08/02/18 Range/Units 03:59 WBC 5.8 (4.3-11.1) K/mcL Hgb 12.5 L (12.9-16.9) g/dL Hct 38.3 (37.5-50.1) % Plt Count 263 (140-400) K/mcL Neutrophils # 3.5 (1.6-8.9) K/mcL BMP 08/02/18 03:59 Sodium 137 Potassium 3.6 Chloride 106 Carbon Dioxide 25 BUN 10 Creatinine 0.54 L Glucose 165 H Calcium 8.7 Consult Discharge Plan - Plan Instructions: How to Check Your Blood Sugar (DC), Diabetic Ketoacidosis (DC), Diabetes Mellitus Type 2 in Adults (DC) Additional Instructions: Follow-up appointments: If there is not an appointment listed below, please call your physician and schedule a follow-up appointment. If you have congestive heart failure and your symptoms return, make an appointment with your physician. Medication List: Carry an up to date list of medications you are taking at all time. We have given you an updated medication list including any new medications that you have been prescribed. Please provide that list to your primary provider Symptoms: If your condition changes or you experience any of the following symptoms, notify your physician immediately: Unusual or worsening pain, fever, persistent nausea and vomiting, bleeding, increase in swelling (especially in your legs), sudden weight gain, extreme dizziness, chest pain, increased drainage or redness from a wound or incision. Go to the emergency department if you experience a problem with breathing. Weights: If you have a history of swelling or shortness of breath, weigh yourself daily and notify your physician if you have a weight gain of two or more pounds in one day or 5 or more pounds in a week. If you experience any of the warning signs for stroke: Sudden numbness or weakness of the face, arm or leg; especially on one side of the body, sudden confusion, trouble speaking or understanding, sudden trouble seeing in one or both eyes, sudden trouble walking, dizziness, loss of balance or coordination, sudden sever headache with no cause; Call 911 or go to the emergency room. Stroke is a medical emergency. Some risk factors for stroke: Age, cigarette smoking, diabetes, excessive alcohol consumption, family history , high blood pressure, overweight, physical inactivity, prior stroke, heart attack, diagnosis of carotid artery stenosis or other artery disease. If you smoke, STOP: Smoking or tobacco use significantly increases your risk of heart and lung disease. Your chance of disease greatly increases if you continue to smoke. For more information, call the [place] tobacco quit line for smoking cessation 3NOW ( ) Referrals: Bel Up [Resident] - 08/08/18 4:00 pm (1) Diabetes Qualifiers: Diabetes mellitus type: type 1 Diabetes mellitus complication status: with hyperglycemia Qualified Code(s): E10.65 - Type 1 diabetes mellitus with hyperglycemia (4) DKA (diabetic ketoacidoses) Qualifiers: Diabetes mellitus type: type 1 Diabetes mellitus complication detail: without coma Qualified Code(s): E10.10 - Type 1 diabetes mellitus with ketoacidosis without coma
[2018-08-02] MEDS ORDERED: Insulin NPH/REG 70/30 100 UNIT/ML (x5UNIT) SQ ONE (22:15)
[2018-08-03] MEDS: *HR* Heparin 5,000 UNIT/ML VIAL SQ SCH ×3 (05:16→21:06)
[2018-08-03] MEDS: Insulin LISPRO 300 UNITS/3 ML VIAL SQ SCH ×4 (08:07→21:02)
[2018-08-03] MEDS: Insulin NPH/REG 70/30 100 UNIT/ML (x5UNIT) SQ SCH (09:06)
[2018-08-03] MEDS: Venlafaxine XR (24 HR) 150 MG CAP.ER.24H PO SCH (09:07)
[2018-08-03] MEDS: Gabapentin 400 MG CAPSULE PO SCH ×3 (09:07→20:49)
--- NOTE | 2018-08-03 13:41 | Internal Med Progress Note ---
Hospitalist Progress Note - Encounter Date of Encounter: 08/03/18 Time of Encounter: 13:42 - Subjective Interval History: Seen and examined at bedside. Says he feels overall better but does not think he is ready for discharge. He is concerned about his blood sugars being too high as concerned he will turn around, back to the emergency room. - Exam Vitals: Temp Pulse Resp BP Pulse Ox 97.8 F 74 18 123/79 96 08/03/18 11:17 08/03/18 11:17 08/03/18 11:17 08/03/18 11:17 08/03/18 11:17 Exam: General: Alert and oriented 3. Cardiovascular:Normal S1 & S2, no rubs, murmurs or gallops. No JVD. Pulse regular. Lungs:Normal breath sounds, no wheezes or crackles. Abdomen:Soft, non-tender, no rigidity. Extremities:No deformity, mild edema of the right knee; nonerythematous nontender. - Assessment and Plan (1) Diabetes Current Visit: No Status: Chronic Assessment and Plan: per hx. Has known medication and dietary noncompliance. Blood sugars remain elevated; discussed with pharmacy and will increase morning dose of NPH. Continue monitoring blood sugar and titrate PRN (2) Hyperglycemia Current Visit: No Status: Acute Assessment and Plan: plan as noted above (3) DKA (diabetic ketoacidoses) Current Visit: Yes Status: Resolved Assessment and Plan: Likely secondary to medication noncompliance. No evidence of infection. No white blood cell count; patient afebrile. Patient received 2 L of fluid boluses along with potassium in the ED. We continue patient DKA protocol. Consultation social media community manager due to history of medication noncompliance. 08/02- DKA resolved. (4) Antisocial personality disorder Current Visit: No Status: Chronic Assessment and Plan: Continue with home psychiatric medications. Social work aware of psychiatric challenges with this position. (5) Hyponatremia Current Visit: No Status: Resolved Assessment and Plan: Hyponatremia secondary to hyperglycemia. We will monitor for correction with treatment of DKA. DVT Prophylaxis: heparin - Time Spent with Patient Total time spent is greater than 50% in coordination of care (as documented) at patient's floor/unit and/or counseling patient: Internal Medicine: Result - Labs CBC & Chem 7: 08/02/18 03:59 08/02/18 03:59 Consult Discharge Plan - Plan Instructions: How to Check Your Blood Sugar (DC), Diabetic Ketoacidosis (DC), Diabetes Mellitus Type 2 in Adults (DC) Additional Instructions: Follow-up appointments: If there is not an appointment listed below, please call your physician and schedule a follow-up appointment. If you have congestive heart failure and your symptoms return, make an appointment with your physician. Medication List: Carry an up to date list of medications you are taking at all time. We have given you an updated medication list including any new medications that you have been prescribed. Please provide that list to your primary provider Symptoms: If your condition changes or you experience any of the following symptoms, notify your physician immediately: Unusual or worsening pain, fever, persistent nausea and vomiting, bleeding, increase in swelling (especially in your legs), sudden weight gain, extreme dizziness, chest pain, increased drainage or redness from a wound or incision. Go to the emergency department if you experience a problem with breathing. Weights: If you have a history of swelling or shortness of breath, weigh yourself daily and notify your physician if you have a weight gain of two or more pounds in one day or 5 or more pounds in a week. If you experience any of the warning signs for stroke: Sudden numbness or weakness of the face, arm or leg; especially on one side of the body, sudden confusion, trouble speaking or understanding, sudden trouble seeing in one or both eyes, sudden trouble walking, dizziness, loss of balance or coordination, sudden sever headache with no cause; Call 911 or go to the emergency room. Stroke is a medical emergency. Some risk factors for stroke: Age, cigarette smoking, diabetes, excessive alcohol consumption, family history , high blood pressure, overweight, physical inactivity, prior stroke, heart attack, diagnosis of carotid artery stenosis or other artery disease. If you smoke, STOP: Smoking or tobacco use significantly increases your risk of heart and lung disease. Your chance of disease greatly increases if you continue to smoke. For more information, call the [place] tobacco quit line for smoking cessation -NOW ( ) Referrals: Bel Up [Resident] - 08/08/18 4:00 pm (1) Diabetes Qualifiers: Diabetes mellitus type: type 1 Diabetes mellitus complication status: with hyperglycemia Qualified Code(s): E10.65 - Type 1 diabetes mellitus with hyperglycemia (3) DKA (diabetic ketoacidoses) Qualifiers: Diabetes mellitus type: type 1 Diabetes mellitus complication detail: without coma Qualified Code(s): E10.10 - Type 1 diabetes mellitus with ketoacidosis without coma
[2018-08-03] MEDS ORDERED: Insulin NPH/REG 70/30 100 UNIT/ML (x5UNIT) SQ SCH (18:00)
[2018-08-04] MEDS: *HR* Heparin 5,000 UNIT/ML VIAL SQ SCH (05:34)
[2018-08-04] MEDS: Insulin LISPRO 300 UNITS/3 ML VIAL SQ SCH ×2 (08:46→12:16)
[2018-08-04] MEDS: Gabapentin 400 MG CAPSULE PO SCH (08:46)
[2018-08-04] MEDS: Venlafaxine XR (24 HR) 150 MG CAP.ER.24H PO SCH (08:46)
[2018-08-04] MEDS ORDERED: Insulin NPH/REG 70/30 100 UNIT/ML (x5UNIT) SQ SCH (09:00)
[2018-08-04 11:44] VITALS: BP 123/77
--- NOTE | 2018-08-04 13:11 | Discharge Summary ---
- NOTES TO OUTPATIENT PROVIDER Notes to Outpatient Provider: Recommend routine hospital follow-up Date of Encounter: 08/04/18 Time of Encounter: 13:11 - Discharge Diagnosis (1) Diabetes Priority: Secondary Status: Chronic Qualifiers: Diabetes mellitus type: type 1 Diabetes mellitus complication status: with hyperglycemia Qualified Code(s): E10.65 - Type 1 diabetes mellitus with hyperglycemia (2) Hyperglycemia Priority: Primary Status: Acute (3) DKA (diabetic ketoacidoses) Priority: Primary Status: Resolved Qualifiers: Diabetes mellitus type: type 1 Diabetes mellitus complication detail: without coma Qualified Code(s): E10.10 - Type 1 diabetes mellitus with ketoacidosis without coma (4) Antisocial personality disorder Priority: Secondary Status: Chronic (5) Hyponatremia Priority: Primary Status: Resolved Hospital course: Mr. Lemus is a 32 year old male with extensive psychiatric history and history of diabetes presented to [facility] on 08/02/2018 with complaints of flank pain and right knee pain. He was found to be in DKA and was admitted for further workup treatment. Patient has known medication and dietary noncompliance with frequent admissions. His blood sugar was controlled with utilizing DKA protocol and DKA was resolved as of 08/02/18 shortly after arrival. Patient reported not having a common or therefore he was unable to check his blood sugar and was not taking his insulin as he should be. Suspect his DKA is likely due to medication noncompliance as there is no evidence of infection, no elevated to WBC, he was afebrile. He was provided with a new glucometer at discharge; Cox was $15 and patient stated he was able to afford this. He was given refills for his insulin and was strongly encouraged on medication compliance. He was also strongly advised on keeping appointment with primary care physician for close outpatient follow-up. Patient verbalized understanding. Discharge discussed with: patient (Seen and examined at bedside. Patient says he feels about the same but is okay to discharge. I strongly encouraged medication compliance and follow-up with primary care physician. Patient stated that he could afford the 50 now,Pharmacy. Stated he was out of insulin and was added with new Rx for NPH as well as sliding scale insulin.) - Time Spent with Patient Total time spent providing and/or coordinating discharge services: - Discharge Medications Prescriptions: Insulin NPH/REG 70/30 (HUMAN) [Humulin 70/30 Vial] 25 unit SQ QAM #1 [id number] Insulin NPH/REG 70/30 (HUMAN) [Humulin 70/30 Vial] 20 unit SQ QPM #1 [id number] Insulin Regular Human [Humulin R] 2 - 10 units SQ BIDWM #1 vial Home Medications: Gabapentin [Neurontin] 800 mg PO TID 14 Days #42 tablet 06/08/18 [Rx] Venlafaxine XR (24 HR) [Effexor Xr] 150 mg PO DAILY 14 Days #14 cap.er.24h 06/08 [Rx] Phenytoin ER [Dilantin ER] 100 mg PO TID 14 Days #42 capsule 07/03/18 [Rx] Insulin NPH/REG 70/30 (HUMAN) [Humulin 70/30 Vial] 20 unit SQ QPM #1 [id number] 06/14 [Rx] Insulin NPH/REG 70/30 (HUMAN) [Humulin 70/30 Vial] 25 unit SQ QAM #1 [id number] 06/14 [Rx] Insulin Regular Human [Humulin R] 2 - 10 units SQ BIDWM #1 vial 08/04/18 [Rx] Allergies/Adverse Reactions: 3 Allergy/AdvReac Type Severity Reaction Status Date / Time insulin glargine Allergy Blister Verified 07/02/18 22:17 [From Lantus] diphenhydramine AdvReac Intermediate See Verified 07/02/18 22:17 [From Benadryl] Comments Date of admission: 08/01/18 01:32 Primary care physician: PCP NONE Consults: 08/01/18 02:26 Consult to Flat Screen Worker [CONS] Routine Reason for SW Consult: Homeless Discharging clinician: Na Sher Anticipated date of discharge: 08/04/18 - Constitutional Vitals: Temp Pulse Resp BP Pulse Ox 97.8 F 79 19 123/77 96 08/04/18 11:41 08/04/18 11:41 08/04/18 11:41 08/04/18 11:41 08/04/18 11:41 General appearance: Present: A&O X 3, no acute distress Exam: . - Head Head exam: Present: atraumatic, normocephalic - Eye Eye exam: Present: PERRL, conjuntiva pink, sclera anicteric Pupils: Present: PERRL - Neck Neck exam general surgery: Present: supple, trachea midline. Absent: lymphadenopathy - Respiratory Respiratory exam: Present: CTAB. Absent: accessory muscle use, rales, rhonchi, wheezes - Cardiovascular Cardiovascular exam: Present: RRR, +S1, +S2. Absent: diastolic murmur, gallop, rubs, systolic murmur - GI/Abdominal GI/Abdominal exam: Present: normal bowel sounds, soft, no peritoneal signs. Absent: distended, tenderness - Extremities Exam Extremities exam: Present: warm, radial pulses palpable and symmetrical. Absent : calf tenderness, cyanotic, pedal edema - Neurological Exam Neurological exam: Present: CN II-XII intact, oriented X3, no focal deficits. Absent: pronater drift, facial droop, speech deficit - Skin Skin exam: Present: dry, intact - Patient Status Disposition: Home, Self-Care Condition: Good Functional capacity at discharge: independent ambulation Overall status at discharge: patient is back to baseline - Discharge Instructions Instructions: How to Check Your Blood Sugar (DC), Diabetic Ketoacidosis (DC), Diabetes Mellitus Type 2 in Adults (DC), Insulin NPH/Regular (Injection) Follow Up With: Bel Up [Resident] - 08/08/18 4:00 pm Additional Instructions: Follow-up appointments: If there is not an appointment listed below, please call your physician and schedule a follow-up appointment. If you have congestive heart failure and your symptoms return, make an appointment with your physician. Medication List: Carry an up to date list of medications you are taking at all time. We have given you an updated medication list including any new medications that you have been prescribed. Please provide that list to your primary provider Symptoms: If your condition changes or you experience any of the following symptoms, notify your physician immediately: Unusual or worsening pain, fever, persistent nausea and vomiting, bleeding, increase in swelling (especially in your legs), sudden weight gain, extreme dizziness, chest pain, increased drainage or redness from a wound or incision. Go to the emergency department if you experience a problem with breathing. Weights: If you have a history of swelling or shortness of breath, weigh yourself daily and notify your physician if you have a weight gain of two or more pounds in one day or 5 or more pounds in a week. If you experience any of the warning signs for stroke: Sudden numbness or weakness of the face, arm or leg; especially on one side of the body, sudden confusion, trouble speaking or understanding, sudden trouble seeing in one or both eyes, sudden trouble walking, dizziness, loss of balance or coordination, sudden sever headache with no cause; Call 911 or go to the emergency room. Stroke is a medical emergency. Some risk factors for stroke: Age, cigarette smoking, diabetes, excessive alcohol consumption, family history , high blood pressure, overweight, physical inactivity, prior stroke, heart attack, diagnosis of carotid artery stenosis or other artery disease. If you smoke, STOP: Smoking or tobacco use significantly increases your risk of heart and lung disease. Your chance of disease greatly increases if you continue to smoke. For more information, call the [place] tobacco quit line for smoking cessation QUIT-NOW ( ) - Diet and Activity Activity: as per physical therapy
--- NOTE | 2018-08-05 12:23 | Electrocardiograph Report ---
[place] [id number] Test Date: 2018-08-01 Pat Name: John Lemus Department: [id number] Room: 2N09 Gender: M Replenishment Analyst: : 1985 Requested By: Idalmis Cedeño Order Number: [id number] Reading MD: Butch Florian Measurements Intervals Harmans Rate: 89 P: 63 MO: 135 QRS: 76 QRSD: 89 T: 73 QT: 380 QTc: 463 Interpretive Statements Normal sinus rhythm Diffuse ST elevation, possible pericarditis Electronically Signed On 08-05-2018 12:21:20 EDT by Butch Florian
== END 2018-08-04 14:54 | disposition home or self-care (01) ==
LOC: EMEROOARM 22:40 → 2NNU 22:40 → SUATTDRO 08-01 01:32 → 2NNU 08-01 01:58 → SUATTDRO 08-01 02:57 → 3BNU 08-01 13:00
PROVIDERS: ADMIT Internal Medicine; ATTEND Internal Medicine

== ENCOUNTER 2018-11-14 12:18 | Inpatient (IN) ==
[2018-11-14] MEDS ORDERED: 0.9 % Sodium Chloride 1,000 ML ONE (13:20)
[2018-11-14] MEDS: 0.9 % Sodium Chloride 1,000 ML IVC SCH ×4 (13:25→18:48)
[2018-11-14] MEDS ORDERED: Ondansetron 4 MG/2 ML VIAL IVP ONE (13:25)
[2018-11-14 13:38] LABS: Basophils % 0.3 %; Eosinophils % 0.2 %; Hematocrit 39.4 % (37.5-50.1); Hemoglobin 12.9 g/dL (12.9-16.9); Immature Granulocytes % 0.5 % (0-4); Lymphocytes # 0.8 K/mcL (0.6-4.6); Lymphocytes % 6.2 %; Mean Corpuscular HGB Conc 32.7 g/dL (31.6-35.5); Mean Corpuscular Hemoglobin 28.6 pg (28.0-33.3); Mean Corpuscular Volume 87.4 fL (83.0-100.0); Mean Platelet Volume 9.6 fL (9.4-12.4); Monocytes # 0.5 K/mcL (0.0-1.3); Monocytes % 4.1 %; Neutrophils # 11.4 K/mcL (1.6-8.9); Platelet Count 311 K/mcL (140-400); Red Blood Count 4.51 M/mcL (4.19-5.50); Red Cell Distribution Width 13.1 % (11.5-14.5); Segmented Neutrophils % 88.7 %
[2018-11-14 13:39] LABS: VBG HCO3 11 mEq/L (21-27); VBG PCO2 29 mmHg (41-51); VBG PH 7.19 pH Units (7.32-7.42); VBG PO2 102 mmHg (25-50)
--- NOTE | 2018-11-14 13:41 | Emergency Department Note ---
Disposition Clinical Impression: DKA (diabetic ketoacidoses) Qualifiers: Diabetes mellitus type: type 1 Diabetes mellitus complication detail: without coma Qualified Code(s): E10.10 - Type 1 diabetes mellitus with ketoacidosis without coma Abdominal pain Qualifiers: Abdominal location: unspecified location Qualified Code(s): R10.9 - Unspecified abdominal pain Leukocytosis Qualifiers: Leukocytosis type: unspecified Qualified Code(s): D72.829 - Elevated white blood cell count, unspecified Disposition: Admitted As Inpatient Condition: Serious Referrals: NONE,PCP [Primary Care Provider] - Forms: ED Satisfaction Letter Time of Disposition: 14:38 General Adult HPI - General Chief complaint: ED Nausea/Vomiting/Diarrhea Stated complaint: High Glucose,Flu like symptoms Time Seen by Provider: 11/14/18 13:00 Source: patient Mode of arrival: ambulatory Limitations: no limitations Nursing Notes Reviewed: Yes Vital Signs Reviewed: Yes - History of Present Illness HPI Narrative: Patient is a 33-year-old male that presents emergency department for not feeling well and having elevated blood glucose levels. Patient states that he is unsure exactly how high they have been but says that recently her probably around 300. Patient states that he did not want to talk to me at this time" asking him questions. Patient states that he has been having belly pain. Patient states that he has been vomiting with no diarrhea. Patient states that he just generally does not feel well. Pain Scale: 8 - Related Data Previous Rx's Medication Instructions Recorded Gabapentin [Neurontin] 800 mg PO TID 14 Days #42 tablet 06/08/18 Venlafaxine XR (24 HR) [Effexor Xr] 150 mg PO DAILY 14 Days #14 06/08/18 cap.er.24h Phenytoin ER [Dilantin ER] 100 mg PO TID 14 Days #42 capsule 07/03/18 Insulin NPH/REG 70/30 (HUMAN) 20 unit SQ QPM #1 [id number] 08/04/18 [Humulin 70/30 Vial] Insulin NPH/REG 70/30 (HUMAN) 25 unit SQ QAM #1 [id number] 08/04/18 [Humulin 70/30 Vial] Insulin Regular Human [Humulin R] 2 - 10 units SQ BIDWM #1 vial 08/04/18 Allergies Allergy/AdvReac Type Severity Reaction Status Date / Time insulin glargine Allergy Blister Verified 07/02/18 22:17 [From Lantus] diphenhydramine AdvReac Intermediate See Verified 07/02/18 22:17 [From Benadryl] Comments All systems ED: reviewed and negative except as stated. Constitutional: Denies: fever Cardiovascular: Reports: chest pain Gastrointestinal: Reports: abdominal pain, nausea Past Medical History - Past Medical History Medical history: Reports: diabetes, hepatitis, seizures, other Surgical history: Reports: orthopedic, other Psychiatric history: Reports: anxiety, previous psychiatric hospitalization - Social History Smoking Status: Current every day smoker Smokeless Tobacco Status: No Alcohol use: Reports: rarely Drug use: Reports: none Physical Exam - General Limitations: no limitations General appearance: alert, in no apparent distress - Head Head exam: atraumatic, normocephalic - Eye Eye exam: Present: normal appearance, EOMI - Neck Neck exam: Present: normal inspection, full ROM, trachea midline - Respiratory Respiratory exam: Present: normal lung sounds bilaterally. Absent: respiratory distress, wheezes - Cardiovascular Cardiovascular exam: Present: normal rhythm, tachycardia, normal heart sounds, +S1, +S2 - Abdominal Exam Abdominal exam: Present: soft, tenderness, normal bowel sounds Abdominal tenderness: Present: diffuse, moderate - Neurological Exam Neurological exam: Present: alert, oriented X3 - Psychiatric Psychiatric exam: Present: normal affect, agitated - Skin Skin exam: Present: warm, dry, intact Course Vital Signs Temperature 98.2 F 11/14/18 12:29 Pulse Rate 119 11/14/18 12:29 Respiratory Rate 16 11/14/18 12:29 Blood Pressure 144/74 11/14/18 12:29 O2 Sat by Pulse Oximetry 97 11/14/18 12:29 Temperature 98.2 F 11/14/18 13:08 Pulse Rate 112 11/14/18 13:08 Respiratory Rate 16 11/14/18 13:08 Blood Pressure 144/74 11/14/18 13:08 O2 Sat by Pulse Oximetry 100 11/14/18 13:08 Oxygen Delivery Oxygen Delivery Room Air Medical Decision Making - MDM Narrative Medical decision making narrative: Due to the patient presents emergency Department with reports of not feeling well to an elevated blood glucose is concern for possible DKA. Basic laboratory testing will be obtained as well as a CT scan of the abdomen and pelvis and a chest x-ray. Patient was found to be in DKA. Patient had an elevated anion gap. His pH was 7.19. His bicarbonate was 10. Anion gap was 24. His potassium was 5.4. Insulin was started here in the emergency department as well as receiving 2 L of saline. Patient has elevated serum ketones. Patient's blood glucose was 458. Patient will require admission to the hospital for further evaluation and management. Patient's CT scan does not show any evidence of appendicitis or diverticulitis. Patient's CT scan did show evidence of constipation. Patient will require admission to the hospital for further evaluation and management of his DKA. I called spoke the admitting hospitalist and he is accepted the patient to their service. Patient be admitted to the hospital this time for further evaluation and management of his DKA. - Medical Records Medical records reviewed: Yes I reviewed the patient's medical records. - Lab Data Lab results reviewed: Yes I reviewed the patient's lab results. Result diagrams: 11/14/18 13:01 11/14/18 13:01 Lab Results 11/14/18 11/14/18 11/14/18 Range/Units 12:29 12:32 13:01 WBC 12.8 H (4.3-11.1) K/mcL RBC 4.51 (4.19-5.50) M/mcL Hgb 12.9 (12.9-16.9) g/dL Hct 39.4 (37.5-50.1) % MCV 87.4 (83.0-100.0) fL MCH 28.6 (28.0-33.3) pg MCHC 32.7 (31.6-35.5) g/dL RDW 13.1 (11.5-14.5) % Plt Count 311 (140-400) K/mcL MPV 9.6 (9.4-12.4) fL Immature Gran % 0.5 (0-4) % Seg Neutrophils % 88.7 % Lymphocytes % 6.2 % Monocytes % 4.1 % Eosinophils % 0.2 % Basophils % 0.3 % Neutrophils # 11.4 H (1.6-8.9) K/mcL Lymphocytes # 0.8 (0.6-4.6) K/mcL Monocytes # 0.5 (0.0-1.3) K/mcL Eosinophils # 0.0 (0.0-0.6) K/mcL Basophils # 0.0 (0.0-0.2) K/mcL VBG pH (7.32-7.42) pH Units VBG pCO2 (41-51) mmHg VBG pO2 (25-50) mmHg VBG HCO3 (21-27) mEq/L Sodium (136-145) mEq/L Potassium (3.5-5.1) mEq/L Chloride (98-107) mEq/L Carbon Dioxide (23-29) mEq/L BUN (6-20) mg/dL Creatinine (0.70-1.30) mg/dL Est GFR ( Amer) (> 60) Est GFR (Non-Af Amer) (> 60) BUN/Creatinine Ratio (6-26) Glucose (70-105) mg/dL POC Glucose 426 H* 432 H* (70-99) mg/dL Calculated Osmolality (280-300) Lactic Acid (0.5-2.2) mmol/L Calcium (8.6-10.3) mg/dL Phosphorus (2.7-4.5) mg/dL Magnesium (1.6-2.6) mg/dL Beta-Hydroxybutyric Acd (0.02-0.27) mmol/L Urine Color (Yellow) Urine Clarity (Clear) Urine pH (5.0-8.0) pH Units Ur Specific [place] (1.010-1.025) Urine Protein (Neg-Trace) mg/dL Urine Glucose (UA) (Normal) mg/dL Urine Ketones (Negative) mg/dL Urine Blood (Negative) Urine Nitrite (Negative) Urine Bilirubin (Negative) Urine Urobilinogen (Normal) mg/dL Ur Leukocyte Esterase (Negative) Urine Microscopic RBC (0-3) per hpf Urine Microscopic WBC (0-3) per hpf Ur Squamous Epith Cells (None-Few) per lpf Urine Bacteria (None-Few) per hpf Hyaline Casts (None-Few) per lpf Ur Culture Indicated? (NO) Person Notif of Crit 11/14/18 11/14/18 11/14/18 Range/Units 13:01 13:01 13:14 WBC (4.3-11.1) K/mcL RBC (4.19-5.50) M/mcL Hgb (12.9-16.9) g/dL Hct (37.5-50.1) % MCV (83.0-100.0) fL MCH (28.0-33.3) pg MCHC (31.6-35.5) g/dL RDW (11.5-14.5) % Plt Count (140-400) K/mcL MPV (9.4-12.4) fL Immature Gran % (0-4) % Seg Neutrophils % % Lymphocytes % % Monocytes % % Eosinophils % % Basophils % % Neutrophils # (1.6-8.9) K/mcL Lymphocytes # (0.6-4.6) K/mcL Monocytes # (0.0-1.3) K/mcL Eosinophils # (0.0-0.6) K/mcL Basophils # (0.0-0.2) K/mcL VBG pH (7.32-7.42) pH Units VBG pCO2 (41-51) mmHg VBG pO2 (25-50) mmHg VBG HCO3 (21-27) mEq/L Sodium 130 L (136-145) mEq/L Potassium 5.4 H (3.5-5.1) mEq/L Chloride 96 L (98-107) mEq/L Carbon Dioxide 10 L* (23-29) mEq/L BUN 19 (6-20) mg/dL Creatinine 1.01 (0.70-1.30) mg/dL Est GFR ( Amer) > 60 (> 60) Est GFR (Non-Af Amer) > 60 (> 60) BUN/Creatinine Ratio 19 (6-26) Glucose 458 H (70-105) mg/dL POC Glucose (70-99) mg/dL Calculated Osmolality 292 (280-300) Lactic Acid (0.5-2.2) mmol/L Calcium 9.9 (8.6-10.3) mg/dL Phosphorus (2.7-4.5) mg/dL Magnesium (1.6-2.6) mg/dL Beta-Hydroxybutyric Acd > 2.00 H (0.02-0.27) mmol/L Urine Color Yellow (Yellow) Urine Clarity Clear (Clear) Urine pH 5.5 (5.0-8.0) pH Units Ur Specific [place] 1.029 H (1.010-1.025) Urine Protein Trace (Neg-Trace) mg/dL Urine Glucose (UA) >=1000 H (Normal) mg/dL Urine Ketones >=160 H (Negative) mg/dL Urine Blood Negative (Negative) Urine Nitrite Negative (Negative) Urine Bilirubin Negative (Negative) Urine Urobilinogen Normal (Normal) mg/dL Ur Leukocyte Esterase Negative (Negative) Urine Microscopic RBC 0-3 (0-3) per hpf Urine Microscopic WBC 0-3 (0-3) per hpf Ur Squamous Epith Cells None Seen (None-Few) per lpf Urine Bacteria None Seen (None-Few) per hpf Hyaline Casts None Seen (None-Few) per lpf Ur Culture Indicated? NO (NO) Person Notif of Crit 11/14/18 11/14/18 11/14/18 Range/Units 13:34 13:44 13:44 WBC (4.3-11.1) K/mcL RBC (4.19-5.50) M/mcL Hgb (12.9-16.9) g/dL Hct (37.5-50.1) % MCV (83.0-100.0) fL MCH (28.0-33.3) pg MCHC (31.6-35.5) g/dL RDW (11.5-14.5) % Plt Count (140-400) K/mcL MPV (9.4-12.4) fL Immature Gran % (0-4) % Seg Neutrophils % % Lymphocytes % % Monocytes % % Eosinophils % % Basophils % % Neutrophils # (1.6-8.9) K/mcL Lymphocytes # (0.6-4.6) K/mcL Monocytes # (0.0-1.3) K/mcL Eosinophils # (0.0-0.6) K/mcL Basophils # (0.0-0.2) K/mcL VBG pH 7.19 L* (7.32-7.42) pH Units VBG pCO2 29 L (41-51) mmHg VBG pO2 102 H (25-50) mmHg VBG HCO3 11 L (21-27) mEq/L Sodium (136-145) mEq/L Potassium (3.5-5.1) mEq/L Chloride (98-107) mEq/L Carbon Dioxide (23-29) mEq/L BUN (6-20) mg/dL Creatinine (0.70-1.30) mg/dL Est GFR ( Amer) (> 60) Est GFR (Non-Af Amer) (> 60) BUN/Creatinine Ratio (6-26) Glucose (70-105) mg/dL POC Glucose (70-99) mg/dL Calculated Osmolality (280-300) Lactic Acid 1.5 (0.5-2.2) mmol/L Calcium (8.6-10.3) mg/dL Phosphorus 4.2 (2.7-4.5) mg/dL Magnesium 2.0 (1.6-2.6) mg/dL Beta-Hydroxybutyric Acd (0.02-0.27) mmol/L Urine Color (Yellow) Urine Clarity (Clear) Urine pH (5.0-8.0) pH Units Ur Specific [place] (1.010-1.025) Urine Protein (Neg-Trace) mg/dL Urine Glucose (UA) (Normal) mg/dL Urine Ketones (Negative) mg/dL Urine Blood (Negative) Urine Nitrite (Negative) Urine Bilirubin (Negative) Urine Urobilinogen (Normal) mg/dL Ur Leukocyte Esterase (Negative) Urine Microscopic RBC (0-3) per hpf Urine Microscopic WBC (0-3) per hpf Ur Squamous Epith Cells (None-Few) per lpf Urine Bacteria (None-Few) per hpf Hyaline Casts (None-Few) per lpf Ur Culture Indicated? (NO) Person Notif of [place] CABA - Radiology Data Radiology results reviewed: Yes I reviewed the patient's radiology results. Chest X-Ray 11/14/18 13:06 IMPRESSION: No acute cardiopulmonary disease. D/ / Kyle Evangelista MD / Kyle Evangelista MD Interpreting Provider: Kyle Evangelista MD Abdomen/Pelvis CT 11/14/18 13:40 IMPRESSION: 1. No evidence of acute appendicitis or diverticulitis. Constipation and stool impaction in the rectum. 2. Diffuse fatty infiltration of the liver without focal disease. 3. Cholelithiasis but no evidence of acute cholecystitis. D/ / 11/14/2018 14:51:43 Kirti Suarez MD / malcom Interpreting Provider: Kirti Suarez MD - EKG Data EKG #1 EKG attestation: Yes I reviewed and interpreted this EKG. EKG results narrative: EKG shows sinus tachycardia at a rate of 118 beats per minute, CA interval of 150, QRS duration 97, QTc of 470. There is no evidence of STEMI and EKG. This is compared to previous EKG on 08/01/18 which showed a normal sinus rhythm at rate 89 bpm.
[2018-11-14 13:51] LABS: Bilirubin,Urine Negative (Negative); Blood,Urine Negative (Negative); Clarity,Urine Clear (Clear); Color,Urine Yellow (Yellow); Glucose,Urine (UA) >=1000 mg/dL (Normal); Ketones,Urine >=160 mg/dL (Negative); Leukocyte Esterase,Urine Negative (Negative); Nitrite,Urine Negative (Negative); PH,Urine 5.5 pH Units (5.0-8.0); Protein,Urine Trace mg/dL (Neg-Trace); Specific Gravity,Urine 1.029 (1.010-1.025); Urobilinogen,Urine Normal (Normal)
[2018-11-14 13:53] LABS: Bacteria,Urine None Seen per hpf (None-Few); Hyaline Casts,Urine None Seen per lpf (None-Few); RBC,Urine 0-3 per hpf (0-3); Squamous Epithelial Cell,Urine None Seen per lpf (None-Few); WBC,Urine 0-3 per hpf (0-3)
[2018-11-14 14:00] LABS: BUN/Creatinine Ratio 19 (6-26); Blood Urea Nitrogen 19 mg/dL (6-20); Calcium 9.9 mg/dL (8.6-10.3); Carbon Dioxide 10 mEq/L (23-29); Chloride 96 mEq/L (98-107); Glucose 458 mg/dL (70-105); Osmolality,Calculated 292 (280-300); Potassium 5.4 mEq/L (3.5-5.1); Sodium 130 mEq/L (136-145); eGFR For Non-African Americans > 60 (> 60)
[2018-11-14] MEDS ORDERED: *HR* Dextrose 50 % in Water (Syg) 50 ML SYRINGE IVP PRN ×2 (14:07→16:14)
[2018-11-14] MEDS ORDERED: 0.9 % Sodium Chloride 1,000 ML IVC ONE (14:07)
[2018-11-14] MEDS ORDERED: Insulin Human Regular 100 UNIT in 0.9 % Sodium Chloride 100 ML IVC SCH (14:15)
--- NOTE | 2018-11-14 14:35 | Emergency Department Note ---
Disposition Clinical Impression: DKA (diabetic ketoacidoses) Qualifiers: Diabetes mellitus type: type 1 Diabetes mellitus complication detail: without coma Qualified Code(s): E10.10 - Type 1 diabetes mellitus with ketoacidosis without coma Disposition: Admitted As Inpatient Forms: ED Satisfaction Letter General Adult HPI - General Chief complaint: ED Nausea/Vomiting/Diarrhea Stated complaint: High Glucose,Flu like symptoms Time Seen by Provider: 11/14/18 13:00 Source: patient Mode of arrival: ambulatory Limitations: no limitations - History of Present Illness Pain Scale: 8 - Related Data Previous Rx's Medication Instructions Recorded Gabapentin [Neurontin] 800 mg PO TID 14 Days #42 tablet 06/08/18 Venlafaxine XR (24 HR) [Effexor Xr] 150 mg PO DAILY 14 Days #14 06/08/18 cap.er.24h Phenytoin ER [Dilantin ER] 100 mg PO TID 14 Days #42 capsule 07/03/18 Insulin NPH/REG 70/30 (HUMAN) 20 unit SQ QPM #1 [id number] 08/04/18 [Humulin 70/30 Vial] Insulin NPH/REG 70/30 (HUMAN) 25 unit SQ QAM #1 [id number] 08/04/18 [Humulin 70/30 Vial] Insulin Regular Human [Humulin R] 2 - 10 units SQ BIDWM #1 vial 08/04/18 Allergies Allergy/AdvReac Type Severity Reaction Status Date / Time insulin glargine Allergy Blister Verified 07/02/18 22:17 [From Lantus] diphenhydramine AdvReac Intermediate See Verified 07/02/18 22:17 [From Benadryl] Comments Constitutional: Denies: fever Cardiovascular: Reports: chest pain Gastrointestinal: Reports: abdominal pain, nausea Past Medical History - Past Medical History Medical history: Reports: diabetes, hepatitis, seizures, other Surgical history: Reports: orthopedic, other Psychiatric history: Reports: anxiety, previous psychiatric hospitalization - Social History Smoking Status: Current every day smoker Smokeless Tobacco Status: No Alcohol use: Reports: rarely Drug use: Reports: none Physical Exam - General Limitations: no limitations General appearance: alert, in no apparent distress Course Vital Signs Temperature 98.2 F 11/14/18 12:29 Pulse Rate 119 11/14/18 12:29 Respiratory Rate 16 11/14/18 12:29 Blood Pressure 144/74 11/14/18 12:29 O2 Sat by Pulse Oximetry 97 11/14/18 12:29 Temperature 98.2 F 11/14/18 13:08 Pulse Rate 112 11/14/18 13:08 Respiratory Rate 16 11/14/18 13:08 Blood Pressure 144/74 11/14/18 13:08 O2 Sat by Pulse Oximetry 100 11/14/18 13:08 Oxygen Delivery Oxygen Delivery Room Air Medical Decision Making - Lab Data Result diagrams: 11/14/18 13:01 11/14/18 13:01 Lab Results 11/14/18 11/14/18 11/14/18 Range/Units 12:29 12:32 13:01 WBC 12.8 H (4.3-11.1) K/mcL RBC 4.51 (4.19-5.50) M/mcL Hgb 12.9 (12.9-16.9) g/dL Hct 39.4 (37.5-50.1) % MCV 87.4 (83.0-100.0) fL MCH 28.6 (28.0-33.3) pg MCHC 32.7 (31.6-35.5) g/dL RDW 13.1 (11.5-14.5) % Plt Count 311 (140-400) K/mcL MPV 9.6 (9.4-12.4) fL Immature Gran % 0.5 (0-4) % Seg Neutrophils % 88.7 % Lymphocytes % 6.2 % Monocytes % 4.1 % Eosinophils % 0.2 % Basophils % 0.3 % Neutrophils # 11.4 H (1.6-8.9) K/mcL Lymphocytes # 0.8 (0.6-4.6) K/mcL Monocytes # 0.5 (0.0-1.3) K/mcL Eosinophils # 0.0 (0.0-0.6) K/mcL Basophils # 0.0 (0.0-0.2) K/mcL VBG pH (7.32-7.42) pH Units VBG pCO2 (41-51) mmHg VBG pO2 (25-50) mmHg VBG HCO3 (21-27) mEq/L Sodium (136-145) mEq/L Potassium (3.5-5.1) mEq/L Chloride (98-107) mEq/L Carbon Dioxide (23-29) mEq/L BUN (6-20) mg/dL Creatinine (0.70-1.30) mg/dL Est GFR ( Amer) (> 60) Est GFR (Non-Af Amer) (> 60) BUN/Creatinine Ratio (6-26) Glucose (70-105) mg/dL POC Glucose 426 H* 432 H* (70-99) mg/dL Calculated Osmolality (280-300) Lactic Acid (0.5-2.2) mmol/L Calcium (8.6-10.3) mg/dL Beta-Hydroxybutyric Acd (0.02-0.27) mmol/L Urine Color (Yellow) Urine Clarity (Clear) Urine pH (5.0-8.0) pH Units Ur Specific [place] (1.010-1.025) Urine Protein (Neg-Trace) mg/dL Urine Glucose (UA) (Normal) mg/dL Urine Ketones (Negative) mg/dL Urine Blood (Negative) Urine Nitrite (Negative) Urine Bilirubin (Negative) Urine Urobilinogen (Normal) mg/dL Ur Leukocyte Esterase (Negative) Urine Microscopic RBC (0-3) per hpf Urine Microscopic WBC (0-3) per hpf Ur Squamous Epith Cells (None-Few) per lpf Urine Bacteria (None-Few) per hpf Hyaline Casts (None-Few) per lpf Ur Culture Indicated? (NO) Person Notif of Crit 11/14/18 11/14/18 11/14/18 Range/Units 13:01 13:01 13:14 WBC (4.3-11.1) K/mcL RBC (4.19-5.50) M/mcL Hgb (12.9-16.9) g/dL Hct (37.5-50.1) % MCV (83.0-100.0) fL MCH (28.0-33.3) pg MCHC (31.6-35.5) g/dL RDW (11.5-14.5) % Plt Count (140-400) K/mcL MPV (9.4-12.4) fL Immature Gran % (0-4) % Seg Neutrophils % % Lymphocytes % % Monocytes % % Eosinophils % % Basophils % % Neutrophils # (1.6-8.9) K/mcL Lymphocytes # (0.6-4.6) K/mcL Monocytes # (0.0-1.3) K/mcL Eosinophils # (0.0-0.6) K/mcL Basophils # (0.0-0.2) K/mcL VBG pH (7.32-7.42) pH Units VBG pCO2 (41-51) mmHg VBG pO2 (25-50) mmHg VBG HCO3 (21-27) mEq/L Sodium 130 L (136-145) mEq/L Potassium 5.4 H (3.5-5.1) mEq/L Chloride 96 L (98-107) mEq/L Carbon Dioxide 10 L* (23-29) mEq/L BUN 19 (6-20) mg/dL Creatinine 1.01 (0.70-1.30) mg/dL Est GFR ( Amer) > 60 (> 60) Est GFR (Non-Af Amer) > 60 (> 60) BUN/Creatinine Ratio 19 (6-26) Glucose 458 H (70-105) mg/dL POC Glucose (70-99) mg/dL Calculated Osmolality 292 (280-300) Lactic Acid (0.5-2.2) mmol/L Calcium 9.9 (8.6-10.3) mg/dL Beta-Hydroxybutyric Acd > 2.00 H (0.02-0.27) mmol/L Urine Color Yellow (Yellow) Urine Clarity Clear (Clear) Urine pH 5.5 (5.0-8.0) pH Units Ur Specific [place] 1.029 H (1.010-1.025) Urine Protein Trace (Neg-Trace) mg/dL Urine Glucose (UA) >=1000 H (Normal) mg/dL Urine Ketones >=160 H (Negative) mg/dL Urine Blood Negative (Negative) Urine Nitrite Negative (Negative) Urine Bilirubin Negative (Negative) Urine Urobilinogen Normal (Normal) mg/dL Ur Leukocyte Esterase Negative (Negative) Urine Microscopic RBC 0-3 (0-3) per hpf Urine Microscopic WBC 0-3 (0-3) per hpf Ur Squamous Epith Cells None Seen (None-Few) per lpf Urine Bacteria None Seen (None-Few) per hpf Hyaline Casts None Seen (None-Few) per lpf Ur Culture Indicated? NO (NO) Person Notif of Crit 11/14/18 11/14/18 Range/Units 13:34 13:44 WBC (4.3-11.1) K/mcL RBC (4.19-5.50) M/mcL Hgb (12.9-16.9) g/dL Hct (37.5-50.1) % MCV (83.0-100.0) fL MCH (28.0-33.3) pg MCHC (31.6-35.5) g/dL RDW (11.5-14.5) % Plt Count (140-400) K/mcL MPV (9.4-12.4) fL Immature Gran % (0-4) % Seg Neutrophils % % Lymphocytes % % Monocytes % % Eosinophils % % Basophils % % Neutrophils # (1.6-8.9) K/mcL Lymphocytes # (0.6-4.6) K/mcL Monocytes # (0.0-1.3) K/mcL Eosinophils # (0.0-0.6) K/mcL Basophils # (0.0-0.2) K/mcL VBG pH 7.19 L* (7.32-7.42) pH Units VBG pCO2 29 L (41-51) mmHg VBG pO2 102 H (25-50) mmHg VBG HCO3 11 L (21-27) mEq/L Sodium (136-145) mEq/L Potassium (3.5-5.1) mEq/L Chloride (98-107) mEq/L Carbon Dioxide (23-29) mEq/L BUN (6-20) mg/dL Creatinine (0.70-1.30) mg/dL Est GFR ( Amer) (> 60) Est GFR (Non-Af Amer) (> 60) BUN/Creatinine Ratio (6-26) Glucose (70-105) mg/dL POC Glucose (70-99) mg/dL Calculated Osmolality (280-300) Lactic Acid 1.5 (0.5-2.2) mmol/L Calcium (8.6-10.3) mg/dL Beta-Hydroxybutyric Acd (0.02-0.27) mmol/L Urine Color (Yellow) Urine Clarity (Clear) Urine pH (5.0-8.0) pH Units Ur Specific [place] (1.010-1.025) Urine Protein (Neg-Trace) mg/dL Urine Glucose (UA) (Normal) mg/dL Urine Ketones (Negative) mg/dL Urine Blood (Negative) Urine Nitrite (Negative) Urine Bilirubin (Negative) Urine Urobilinogen (Normal) mg/dL Ur Leukocyte Esterase (Negative) Urine Microscopic RBC (0-3) per hpf Urine Microscopic WBC (0-3) per hpf Ur Squamous Epith Cells (None-Few) per lpf Urine Bacteria (None-Few) per hpf Hyaline Casts (None-Few) per lpf Ur Culture Indicated? (NO) Person Notif of Crit [place] CABA Attestation Statement - Attestation Attestation: I examined this patient and my medical decision-making was reviewed with the Resident Physician. I agree with the documented findings, disposition and treatment plan as described except to the extent set forth below. 33 mar[place] old male presents to the ED with complanits of flu like symptpms and has a history of insulin dependent diabetes and it appears that he is in DKA and we have stared treated with IVF and insulin drip and essentially looking for an infectious source as he is having abdominal pain. He will be admitted to critical care floor
[2018-11-14 14:43] LABS: Phosphorous 4.2 mg/dL (2.7-4.5)
--- NOTE | 2018-11-14 15:32 | Internal Med History&Physical ---
<Matt Will - Last Filed: 11/14/18 16:28> Date of Encounter: 11/14/18 Time of Encounter: 15:30 Internal Medicine - H&P: HPI Chief complaint: Nausea vomiting Admitted From: Home Plans for Post Hospital Care: Home History of present illness: Mr. Lemus is a 33 year old male past mental history of IV drug use, hepatitis C, type 1 diabetes, frequent diabetic ketoacidosis, homelessness, multiple psychiatric disorders present emergency department with nausea vomiting. Mr. Lemus 33-year-old male significant medical history and poor medical compliance presents the emergency department with abdominal pain, nausea and vomiting. He states that he has not felt well for the past 2 weeks and progressively has gotten worse. He was recently released from nursing home, have been on the streets for the last 2 days and started developing nausea and vomiting. He is not providing significant history when asked but from our conversation he has had dry skin on his arms and his legs with frequent itching in between the webs of his fingers. Prior to discharge from nursing home he was prescribed amoxicillin but never picked up the antibiotic. He had been taking his Humalog R 7030 but is not using a sliding scale and does not check his glucose levels. He denies any fevers or chills, diarrhea or constipation. He does admit to nausea, vomiting and polyuria. Past Med Surg Social Fam HX - Past Medical History Medical history: diabetes, hepatitis, seizures, other Additional medical history: Type I Diabetic. Hep C Psychiatric history: anxiety, previous psychiatric hospitalization - Past Surgical History Surgical History: orthopedic, other Additional surgical history: right ankle - Social History Smoking Status: Current every day smoker Smokeless Tobacco Status: No Alcohol use: rarely Drug use: none - Family History Father Family Member Ethnicity: Non- Living Status: Hx Family Cardiac Disorders: Yes ([place]) Hx Family Endocrine Disorder: Yes ([place]) Mother Family Member Ethnicity: Non- Living Status: Still Living Sister Family Member Ethnicity: Non- Living Status: Still Living Internal Medicine - H&P: Meds Gabapentin [Neurontin] 800 mg PO TID 14 Days #42 tablet 06/08/18 [Rx] Venlafaxine XR (24 HR) [Effexor Xr] 150 mg PO DAILY 14 Days #14 cap.er.24h 06/08/18 [Rx] Phenytoin ER [Dilantin ER] 100 mg PO TID 14 Days #42 capsule 07/03/18 [Rx] Insulin NPH/REG 70/30 (HUMAN) [Humulin 70/30 Vial] 20 - 25 unit SQ QAM 11/14/18 [History] Insulin NPH/REG 70/30 (HUMAN) [Humulin 70/30 Vial] 20 - 25 unit SQ QPM 11/14/18 [History] Insulin Regular Human [Humulin R] 2 - 10 units SQ TID 11/14/18 [History] Allergy/AdvReac Type Severity Reaction Status Date / Time insulin glargine Allergy Blister Verified 07/02/18 22:17 [From Lantus] diphenhydramine AdvReac Intermediate See Verified 07/02/18 22:17 [From Benadryl] Comments All Systems PM: A 10-system review of systems was performed and is negative for pertinent findings except as documented above in the HPI. Review of systems: Positive for nausea, vomiting, fast breathing, polyuria, abdominal pain, dry skin and itching Denies change in mental status, change in vision, headaches, sore throat, chest pain or chest pressure, shortness of breath, constipation, diarrhea, burning with urination or swelling in his extremities - Constitutional Vitals: Temp Pulse Resp BP Pulse Ox 98.2 F 112 16 144/74 100 11/14/18 13:08 11/14/18 13:08 11/14/18 13:08 11/14/18 13:08 11/14/18 13:08 General appearance: Present: A&O X 2 Exam: 33-year-old male alert and interactive in mild distress vomiting HEENT normocephalic, atraumatic, pupils equal reactive, oral mucosa dry, trachea midline neck supple no lymphadenopathy appreciated Chest symmetric bilateral coiling respirator effort, increased respiratory effort Cardiac tachycardia, we will pulses 2+ bilateral Respiratory tachypnea, clear to auscultation bilateral Abdomen soft, tender to palpation in the epigastric region, positive bowel sounds Extremities symmetric bilateral multiple small macular rash on his feet and hands and in between the webs of his fingers which he is actively picking at. Internal Med - H&P Results - Labs CBC & Chem 7: 11/14/18 13:01 11/14/18 13:01 Labs: Short CBC 11/14/18 Range/Units 13:01 WBC 12.8 H (4.3-11.1) K/mcL Hgb 12.9 (12.9-16.9) g/dL Hct 39.4 (37.5-50.1) % Plt Count 311 (140-400) K/mcL Neutrophils # 11.4 H (1.6-8.9) K/mcL BMP 11/14/18 13:01 Sodium 130 L Potassium 5.4 H Chloride 96 L Carbon Dioxide 10 L* BUN 19 Creatinine 1.01 Glucose 458 H Calcium 9.9 Urine 11/14/18 Range/Units 13:14 Urine Color Yellow (Yellow) Urine Clarity Clear (Clear) Urine pH 5.5 (5.0-8.0) pH Units Ur Specific [place] 1.029 H (1.010-1.025) Urine Protein Trace (Neg-Trace) mg/dL Urine Glucose (UA) >=1000 H (Normal) mg/dL - ABG Interpretation ABG results: 11/14/18 13:34 VBG pH 7.19 L* VBG pCO2 29 L VBG pO2 102 H VBG HCO3 11 L - Impressions ITS Impressions Chest X-Ray 11/14/18 13:06 IMPRESSION: No acute cardiopulmonary disease. D/ / Kyle Evangelista MD / Kyle Evangelista MD Interpreting Provider: Kyle Evangelista MD Abdomen/Pelvis CT 11/14/18 13:40 IMPRESSION: 1. No evidence of acute appendicitis or diverticulitis. Constipation and stool impaction in the rectum. 2. Diffuse fatty infiltration of the liver without focal disease. 3. Cholelithiasis but no evidence of acute cholecystitis. D/ / 11/14/2018 14:51:43 Kirti Suarez MD / malcom Interpreting Provider: Kirti Suarez MD - Assessment and plan (1) DKA, type 1 Current Visit: Yes Status: Acute Assessment and plan: Type I diabetic who is not compliant with insulin with frequent diabetic keto acidosis episodes. - Recently released from nursing home states that he is taking 7030 but not taking a sliding scale or checking his glucose levels - Anion gap of 24 - pH 7.19, pCO2 29, Bicarb 10 - Glucose 458, beta hydroxybutyric acid greater than 2, urine glucose greater than 1000, urine ketones greater than 160 - Clinical findings of Kussmal breathing, tachycardia,N/V Plan: Diabetic ketoacidosis protocol insulin drip and electrolyte replacements - Every 4 hour BMP - Zofran, Protonix - Plan is switched to subcutaneous insulin when gap has closed continuing insulin drip for roughly 1 hour prior to discontinuing - Nothing by mouth diet, strict intake and output monitoring, 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 Qualifiers: Diabetes mellitus complication detail: without coma Qualified Code(s): E10.10 - Type 1 diabetes mellitus with ketoacidosis without coma (2) Metabolic acidosis Current Visit: Yes Status: Acute Assessment and plan: Patient demonstrates severe metabolic acidosis, poor respiratory compensation in the setting of diabetic ketoacidosis - Lactic acid 1.2 - We will correct diabetic ketoacidosis - Drug screen including salicylate ordered (3) Noncompliance with medications Current Visit: No Status: Chronic Assessment and plan: Patient is a frequent history of noncompliance with insulin and other medications. Given diabetic ketoacidosis, not using sliding scale and treating with insulin based on how he feels not based on glucose levels (4) IV drug abuse Current Visit: No Status: Chronic Assessment and plan: History of IV drug use, track grewal seen on clinical exam. UDS ordered (5) Hepatitis C Current Visit: No Status: Chronic Assessment and plan: Chronic history. Qualifiers: Viral hepatitis chronicity: chronic Qualified Code(s): B18.2 - Chronic viral hepatitis C (6) Scabies Current Visit: Yes Status: Acute Assessment and plan: Permethrin cream (7) DVT prophylaxis Current Visit: No Status: Acute Assessment and plan: SCDs - Time Spent With Patient Total time spent is greater than 50% in coordination of care (as documented) at patient's floor/unit and/or counseling patient: <Terry Doherty - Last Filed: 11/14/18 19:19> Date of Encounter: 11/14/18 Internal Medicine - H&P: HPI History of present illness: Mr. Lemus is a 33 year old male All Systems PM: A 10-system review of systems was performed and is negative for pertinent findings except as documented above in the HPI. - Constitutional Vitals: Temp Pulse Resp BP Pulse Ox 98.9 F 110 20 135/72 100 11/14/18 18:03 11/14/18 18:03 11/14/18 18:03 11/14/18 18:03 11/14/18 13:08 Internal Med - H&P Results - Labs CBC & Chem 7: 11/14/18 13:01 11/14/18 16:16 Labs: Short CBC 11/14/18 Range/Units 13:01 WBC 12.8 H (4.3-11.1) K/mcL Hgb 12.9 (12.9-16.9) g/dL Hct 39.4 (37.5-50.1) % Plt Count 311 (140-400) K/mcL Neutrophils # 11.4 H (1.6-8.9) K/mcL BMP 11/14/18 11/14/18 13:01 16:16 Sodium 130 L 134 L Potassium 5.4 H 4.7 Chloride 96 L 105 Carbon Dioxide 10 L* 9 L* BUN 19 19 Creatinine 1.01 0.97 Glucose 458 H 303 H Calcium 9.9 8.9 Urine 11/14/18 Range/Units 13:14 Urine Color Yellow (Yellow) Urine Clarity Clear (Clear) Urine pH 5.5 (5.0-8.0) pH Units Ur Specific [place] 1.029 H (1.010-1.025) Urine Protein Trace (Neg-Trace) mg/dL Urine Glucose (UA) >=1000 H (Normal) mg/dL - ABG Interpretation ABG results: 11/14/18 13:34 VBG pH 7.19 L* VBG pCO2 29 L VBG pO2 102 H VBG HCO3 11 L - Impressions ITS Impressions Chest X-Ray 11/14/18 13:06 IMPRESSION: No acute cardiopulmonary disease. D/ / Kyle Evangelista MD / Kyle Evangelista MD Interpreting Provider: Kyle Evangelista MD Abdomen/Pelvis CT 11/14/18 13:40 IMPRESSION: 1. No evidence of acute appendicitis or diverticulitis. Constipation and stool impaction in the rectum. 2. Diffuse fatty infiltration of the liver without focal disease. 3. Cholelithiasis but no evidence of acute cholecystitis. D/ / 11/14/2018 14:51:43 Kirti Suarez MD / malcom Interpreting Provider: Kirti Suarez MD - Time Spent With Patient Total time spent is greater than 50% in coordination of care (as documented) at patient's floor/unit and/or counseling patient: - Attending Attestation I examined this patient and my medical decision-making was reviewed with the Resident Physician. I agree with the documented findings, disposition and treatment plan as described except to the extent set forth below. 33 year old male with poorly controlled Type I DM presents for feeling unwell. Patient found to be in DKA. He is being treated per DKA protocol. On exam patient is awake and alert but looks in discomfort. He was noted by nursing to have episodes of vomiting in the ED. Continue treatment per DKA protocol on step-down unit.
[2018-11-14] MEDS ORDERED: Insulin Regular, Human 100 UNIT/ML IV PRN (16:14)
[2018-11-14] MEDS ORDERED: traMADol 50 MG TABLET PO PRN (16:23)
[2018-11-14] MEDS ORDERED: Acetaminophen 325 MG TABLET PO PRN (16:23)
[2018-11-14] MEDS ORDERED: Naloxone 0.4 MG/ML INJ IVP PRN (16:23)
[2018-11-14] MEDS ORDERED: *HR* LORazepam 2 MG/ML VIAL IVP ONE (16:37)
[2018-11-14] MEDS ORDERED: Ondansetron 4 MG/2 ML VIAL IVP PRN (16:38)
[2018-11-14] MEDS ORDERED: *HR* LORazepam 2 MG/ML VIAL ONE (16:41)
[2018-11-14] MEDS ORDERED: Permethrin CRM 60 GM TUBE TP ONE (16:45)
[2018-11-14] MEDS ORDERED: Ondansetron 4 MG/2 ML VIAL ONE (16:50)
[2018-11-14 18:04] LABS: Magnesium 2.2 mg/dL (1.6-2.6); Phosphorous 2.8 mg/dL (2.7-4.5); Salicylate < 2.5 mg/dL (15.0-30.0)
[2018-11-14 18:09] LABS: BUN/Creatinine Ratio 20 (6-26); Blood Urea Nitrogen 19 mg/dL (6-20); Calcium 8.9 mg/dL (8.6-10.3); Carbon Dioxide 9 mEq/L (23-29); Chloride 105 mEq/L (98-107); Glucose 303 mg/dL (70-105); Osmolality,Calculated 292 (280-300); Potassium 4.7 mEq/L (3.5-5.1); Sodium 134 mEq/L (136-145); eGFR For Non-African Americans > 60 (> 60)
[2018-11-14] MEDS ORDERED: 0.9 % Sodium Chloride w KCl 20 MEQ/1,000 ML MLS IVC ONE (18:43)
[2018-11-14] MEDS: 0.9 % Sodium Chloride w KCl 20 MEQ/1,000 ML MLS IVC SCH (18:49)
[2018-11-14 19:06] LABS: Estimated Average Glucose 223 mg/dl; Hemoglobin A1C 9.4 %
[2018-11-14 19:19] LABS: ABG Base Excess -13 mEq/L (-2 to 3); ABG HCO3 12 mEq/L (21-27); ABG Oxygen Saturation 97 % (95-98); ABG PCO2 27 mmHg (35-45); ABG PH 7.28 pH Units (7.32-7.45); ABG PO2 105 mmHg (85-104); ABG TCO2 13 mEq/L (20-26)
[2018-11-14] MEDS: D5% in 0.45% NACL w KCl 20 MEQ/1,000 ML MLS IVC PRN (20:13)
[2018-11-14] MEDS: Gabapentin 400 MG CAPSULE PO SCH ×2 (20:14→20:38)
[2018-11-14 21:33] LABS: BUN/Creatinine Ratio 17 (6-26); Blood Urea Nitrogen 14 mg/dL (6-20); Calcium 8.6 mg/dL (8.6-10.3); Carbon Dioxide 15 mEq/L (23-29); Chloride 109 mEq/L (98-107); Glucose 181 mg/dL (70-105); Osmolality,Calculated 283 (280-300); Potassium 4.6 mEq/L (3.5-5.1); Sodium 134 mEq/L (136-145); eGFR For Non-African Americans > 60 (> 60)
[2018-11-15] MEDS: D5% in 0.45% NACL w KCl 20 MEQ/1,000 ML MLS IVC PRN ×2 (00:43→04:43)
[2018-11-15 01:12] LABS: VBG HCO3 19 mEq/L (21-27); VBG PCO2 35 mmHg (41-51); VBG PH 7.34 pH Units (7.32-7.42); VBG PO2 123 mmHg (25-50)
[2018-11-15 01:29] LABS: BUN/Creatinine Ratio 15 (6-26); Blood Urea Nitrogen 11 mg/dL (6-20); Calcium 8.3 mg/dL (8.6-10.3); Carbon Dioxide 18 mEq/L (23-29); Chloride 110 mEq/L (98-107); Glucose 135 mg/dL (70-105); Osmolality,Calculated 279 (280-300); Potassium 4.1 mEq/L (3.5-5.1); Sodium 134 mEq/L (136-145); eGFR For Non-African Americans > 60 (> 60)
[2018-11-15] MEDS ORDERED: Insulin DETEMIR 100 UNIT/ML X5UNITS SQ ONE ×2 (03:13→07:46)
[2018-11-15 06:23] LABS: BUN/Creatinine Ratio 12 (6-26); Blood Urea Nitrogen 8 mg/dL (6-20); Calcium 8.1 mg/dL (8.6-10.3); Carbon Dioxide 17 mEq/L (23-29); Chloride 109 mEq/L (98-107); Glucose 223 mg/dL (70-105); Osmolality,Calculated 283 (280-300); Potassium 4.6 mEq/L (3.5-5.1); Sodium 134 mEq/L (136-145); eGFR For Non-African Americans > 60 (> 60)
[2018-11-15] MEDS: 0.9 % Sodium Chloride w KCl 20 MEQ/1,000 ML MLS IVC SCH ×3 (07:39→07:41)
[2018-11-15] MEDS: 0.9 % Sodium Chloride 1,000 ML IVC SCH ×3 (07:39→07:41)
[2018-11-15] MEDS ORDERED: Pantoprazole 40 MG VIAL IVP SCH (09:00)
[2018-11-15] MEDS ORDERED: Venlafaxine XR (24 HR) 150 MG CAP.ER.24H PO SCH (09:00)
[2018-11-15] MEDS: Gabapentin 400 MG CAPSULE PO SCH ×2 (09:03→17:03)
[2018-11-15] MEDS ORDERED: Dextrose Gel 15 GM/37.5 ML TUBE PO PRN ×3 (09:16→11:43)
[2018-11-15] MEDS ORDERED: D5% in Water 1,000 ML IVC PRN ×2 (09:16→11:43)
[2018-11-15] MEDS ORDERED: *HR* Dextrose 50 % in Water (Syg) 50 ML SYRINGE IVP PRN ×2 (09:16→11:43)
[2018-11-15 11:31] VITALS: BP 154/78
[2018-11-15] MEDS ORDERED: Insulin LISPRO 300 UNITS/3 ML VIAL SQ ONE (11:52)
[2018-11-15] MEDS: Insulin LISPRO 300 UNITS/3 ML VIAL SQ SCH ×2 (12:02→17:03)
--- NOTE | 2018-11-15 12:40 | Discharge Summary ---
- NOTES TO OUTPATIENT PROVIDER Notes to Outpatient Provider: Patient with history of type 1 diabetes, frequent admissions for DKA with poor insight to his disease as well as homelessness, was admitted for DKA and quickly improved with IV insulin and IVF. Again emphasized the importance of compliance to insulin but I am not sure how receptive he is to the advice. He was offered to have new scripts for insulin which he declined as he has "plenty at home". Orders not resulted at time of discharge: Pending orders 11/14/18 00:00 Culture,Blood [BC] Routine 11/14/18 16:19 Drug Screen 9 Reflex Conf Qnt Routine 11/14/18 16:23 ECG 12 lead ECG [ECG] Routine 11/15/18 12:55 Basic Metabolic Panel Q4H Date of Encounter: 11/15/18 Time of Encounter: 09:00 - Discharge Diagnosis (1) DKA (diabetic ketoacidoses) Priority: Secondary Status: Acute Qualifiers: Diabetes mellitus type: type 1 Diabetes mellitus complication detail: without coma Qualified Code(s): E10.10 - Type 1 diabetes mellitus with ketoacidosis without coma (2) Leukocytosis Priority: Secondary Status: Acute Qualifiers: Leukocytosis type: unspecified Qualified Code(s): D72.829 - Elevated white blood cell count, unspecified (3) Metabolic acidosis Priority: Secondary Status: Acute (4) Scabies Priority: Secondary Status: Acute Hospital course: Mr. Lemus is a 33 year old male with history of type 1 diabetes, frequent admissions for DKA with poor insight to his disease as well as homelessness, who was admitted for DKA and quickly improved with IV insulin and IVF. Again emphasized the importance of compliance to insulin but I am not sure how receptive he is to the advice. He was offered to have new scripts for insulin which he declined as he has "plenty at home". Discharge discussed with: patient, nurse, social work - Time Spent with Patient Total time spent providing and/or coordinating discharge services: 35 mins - Discharge Medications Prescriptions: RX: Permethrin CRM [Elimite] 1 appl TP ONCE #1 tube Home Medications: Gabapentin [Neurontin] 800 mg PO TID 14 Days #42 tablet 06/08/18 [Rx] Venlafaxine XR (24 HR) [Effexor Xr] 150 mg PO DAILY 14 Days #14 cap.er.24h 06/08/18 [Rx] Phenytoin ER [Dilantin ER] 100 mg PO TID 14 Days #42 capsule 07/03/18 [Rx] Insulin NPH/REG 70/30 (HUMAN) [Humulin 70/30 Vial] 20 - 25 unit SQ QAM 11/14/18 [History] Insulin NPH/REG 70/30 (HUMAN) [Humulin 70/30 Vial] 20 - 25 unit SQ QPM 11/14/18 [History] Insulin Regular Human [Humulin R] 2 - 10 units SQ TID 11/14/18 [History] Permethrin CRM [Elimite] 1 appl TP ONCE #1 tube 11/15/18 [Rx] Allergies/Adverse Reactions: Allergy/AdvReac Type Severity Reaction Status Date / Time insulin glargine Allergy Blister Verified 07/02/18 22:17 [From Lantus] diphenhydramine AdvReac Intermediate See Verified 07/02/18 22:17 [From Benadryl] Comments Date of admission: 11/14/18 18:24 Primary care physician: PCP NONE Consults: 11/14/18 16:14 Consult for Pharmacy Education [CONS] Routine Reason for Consult: review current medications and use. Call Completed: Yes 11/14/18 17:29 Consult to Nutrition [CONS] Routine Comment: Consulting Provider: NUTRITION Reason for Dietary Consult: MST Score 11/15/18 07:48 Consult to Audio/Visual Operator [CONS] Routine Reason for SW Consult: frequent adm for DKA, homeless, lack of meds - Constitutional Vitals: Temp Pulse Resp BP Pulse Ox 97.7 F 102 18 154/78 97 11/15/18 11:30 11/15/18 11:30 11/15/18 11:30 11/15/18 11:30 11/15/18 07:20 General appearance: Present: A&O X 2 Exam: VS reviewed General: alert and oriented, not in distress Chest: CTA bilaterally Cardiac: normal rate and rhythm, no murmur Abdomen: soft, nontender. no rebound/guarding Extremities: symmetric bilateral multiple small macular rash on his feet and hands and in between the webs of his fingers which he is actively picking at. - Patient Status Disposition: Home, Self-Care Condition: Serious Functional capacity at discharge: independent ambulation Overall status at discharge: patient is progressing back to baseline - Discharge Instructions Instructions: Diabetes Mellitus Type 1 in Adults (DC) Follow Up With: Vaishali Loredo [Resident] - 11/23/18 11:00 am - Diet and Activity Activity: resume usual activities as tolerated Diet: diabetic diet
[2018-11-15 13:30] LABS: BUN/Creatinine Ratio 13 (6-26); Blood Urea Nitrogen 9 mg/dL (6-20); Calcium 8.9 mg/dL (8.6-10.3); Carbon Dioxide 15 mEq/L (23-29); Chloride 103 mEq/L (98-107); Glucose 337 mg/dL (70-105); Osmolality,Calculated 284 (280-300); Potassium 4.3 mEq/L (3.5-5.1); Sodium 131 mEq/L (136-145); eGFR For Non-African Americans > 60 (> 60)
[2018-11-15] MEDS ORDERED: Insulin LISPRO 300 UNITS/3 ML VIAL SQ SCH (21:00)
--- NOTE | 2018-11-16 18:40 | Electrocardiograph Report ---
[facility] [employer] Test Date: 2018-11-14 Pat Name: John Lemus Department: [id number] Room: Gender: M Boom Man: : 1985 Requested By: Idalmis Cedeño Order Number: [id number] Reading MD: Juan Jose Santiago Measurements Intervals Russell Rate: 118 P: 82 CA: 115 QRS: 80 QRSD: 97 T: 47 QT: 335 QTc: 470 Interpretive Statements Sinus tachycardia Consider left atrial enlargement Borderline prolonged QT interval Electronically Signed On 11-16-2018 18:39:00 EST by Juan Jose Santiago
== END 2018-11-15 18:06 | disposition home or self-care (01) | DRG 420 ==
LOC: EMEROOARM 12:18 → 2NNU 12:18 → SUATTDRO 18:24
PROVIDERS: ADMIT Student in an Organized Health Care Education/Training Program; ATTEND Internal Medicine

== ENCOUNTER 2018-12-30 22:15 | Observation (INO) ==
--- NOTE | 2018-12-30 23:25 | Emergency Department Note ---
Disposition Clinical Impression: Substance abuse, Hyperglycemia Disposition: Admitted As Inpatient Condition: Fair Referrals: NONE,PCP [Primary Care Provider] - Forms: ED Satisfaction Letter, Work/School Release Time of Disposition: 06:13 General Adult HPI - General Chief complaint: ED General Medical Stated complaint: Help with Glucose Time Seen by Provider: 12/30/18 22:47 Source: patient Mode of arrival: ambulatory Nursing Notes Reviewed: Yes Vital Signs Reviewed: Yes - History of Present Illness HPI Narrative: Patient is a 33-year-old male presenting with glucose control problems. Patient has a history of schizoaffective disorder, anxiety, depression history of suicidal attempts in the past. Patient has had multiple hospitalizations in the past. He also history of insulin dependent diabetes mellitus type 1. Patient is currently on insulin regimen, however no longer has glucometer's, to check his glucose. Patient has been taking his regular at home doses of insulin. 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 Patient states that prior to this he was clean for quite some time. Patient states that this point in time he is out of all of his schizoaffective medications and has not been on them for weeks since getting out of halfway. Patient does not have any active thoughts of suicidal or homicidal ideation. He does state that he typically does have delusions with auditory and visual hallucinations, however since being on the meth today he has not had any. Last known meth use was 11 AM this morning, last heroin use was yesterday. Patient states that he does have history of suicidal attempts. States that he does feel very overwhelmed like to be back on his medications. Pain Scale: 0 - Related Data Home Medications Medication Instructions Recorded Confirmed Insulin NPH/REG 70/30 (HUMAN) 20 - 25 unit SQ QAM 11/14/18 11/14/18 [Humulin 70/30 Vial] Insulin NPH/REG 70/30 (HUMAN) 20 - 25 unit SQ QPM 11/14/18 11/14/18 [Humulin 70/30 Vial] Insulin Regular Human [Humulin R] 2 - 10 units SQ TID 11/14/18 11/14/18 Previous Rx's Medication Instructions Recorded Gabapentin [Neurontin] 800 mg PO TID 14 Days #42 tablet 06/08/18 Venlafaxine XR (24 HR) [Effexor Xr] 150 mg PO DAILY 14 Days #14 06/08/18 cap.er.24h Phenytoin ER [Dilantin ER] 100 mg PO TID 14 Days #42 capsule 07/03/18 Permethrin CRM [Elimite] 1 appl TP ONCE #1 tube 11/15/18 Allergies Allergy/AdvReac Type Severity Reaction Status Date / Time insulin glargine Allergy Blister Verified 07/02/18 22:17 [From Lantus] diphenhydramine AdvReac Intermediate See Verified 07/02/18 22:17 [From Benadryl] Comments All systems ED: reviewed and negative except as stated. Review of Systems: As Per HPI Constitutional: Denies: fever, chills, weakness, weight change ENT ED: Denies: ear pain, throat pain, dental pain, hearing loss, epistaxis, congestion, dysphagia Cardiovascular: Denies: chest pain, palpitations, dyspnea on exertion, edema, syncope Respiratory: Denies: cough, dyspnea, wheezes, hemoptysis, stridor Gastrointestinal: Denies: abdominal pain, nausea, vomiting, diarrhea, constipation, hematemesis, melena, hematochezia Genitourinary: Denies: urgency, dysuria, frequency, hematuria Musculoskeletal: Denies: back pain, neck pain, arthralgia, myalgia Neurological: Denies: headache, weakness, numbness, paresthesias, confusion, abnormal gait, vertigo Psychiatric: Reports: anxiety, depression. Denies: suicidal thoughts, homicidal thoughts, auditory hallucinations, visual hallucinations Past Medical History - Past Medical History Attestation: Yes The following information was validated with the patient. Medical history: Reports: diabetes, hepatitis, seizures, other Surgical history: Reports: orthopedic, other Psychiatric history: Reports: anxiety, previous psychiatric hospitalization - Social History Smoking Status: Current every day smoker Smokeless Tobacco Status: No Alcohol use: Reports: rarely Drug use: Reports: IV Drug Use Physical Exam - General Limitations: no limitations General appearance: alert, appears intoxicated (Actively scratching himself, moving his body frequently, tapping his feet repetitively), other (Scratching his skin throughout the conversation) - Head Head exam: atraumatic, normocephalic, normal inspection - Eye Eye exam: Present: PERRL, EOMI, mydriasis - ENT ENT exam: normal exam, normal oropharynx, mucous membranes moist - Neck Neck exam: Present: normal inspection, full ROM, trachea midline - Chest Chest inspection: Present: normal inspection, symmetric chest wall rise - Respiratory Respiratory exam: Present: normal lung sounds bilaterally - Cardiovascular Cardiovascular exam: Present: normal rhythm, tachycardia - Abdominal Exam Abdominal exam: Present: soft, Non-Tender. Absent: tenderness, distention, guarding, rebound, rigidity - Extremities Exam Extremities exam: Present: normal inspection, full ROM. Absent: tenderness, pedal edema - Expanded Lower Extremity Exam Neurovascular/Tendon exam: Absent: motor deficit, sensory deficit, tendon deficit - Back Exam Back exam: Present: normal inspection, full ROM. Absent: tenderness - Neurological Exam Neurological exam: Present: alert, oriented X3 - Psychiatric Psychiatric exam: Present: normal affect, normal mood - Skin Skin exam: Present: warm, dry, intact, normal color. Absent: rash Course Vital Signs Temperature 98.7 F 12/30/18 22:48 Pulse Rate 140 12/30/18 22:48 Respiratory Rate 22 12/30/18 22:48 Blood Pressure 167/92 12/30/18 22:48 O2 Sat by Pulse Oximetry 99 12/30/18 22:48 Temperature 98.7 F 12/31/18 01:00 Pulse Rate 101 12/31/18 05:42 Respiratory Rate 18 12/31/18 05:42 Blood Pressure 149/92 12/31/18 05:42 O2 Sat by Pulse Oximetry 98 12/31/18 05:42 Oxygen Delivery Oxygen Delivery Nasal Cannula Medical Decision Making - [facility] Narrative Medical decision making narrative: Patient is a 33-year-old male presenting with substance abuse and hyperglycemia. Patient has history of insulin-dependent diabetes mellitus type 1 as well as methamphetamine and heroin IV drug use. Patient states that he was recently released from half-way, a few days ago, since this time over the past 5 days he has been using meth and heroin daily. He states last known use was approximately at 11 AM this morning for methamphetamines, last use of opioids was yesterday. On arrival, patient is actively scratching at his skin, appears agitated and anxious, moving around constantly during examination, states she also has been off his schizoaffective medications for the past week since being out of halfway. He does not know what medications he is supposed to be on. He states at this point in time he does have no active suicidal or homicidal ideation, he has no active visual or auditory hallucinations at this point in time. He does have history of delusions. Patient states however that he does have this an impending sense of doom and feels as though he needs a prepack on his schizoaffective medications. While in the ED, patient was given 1 mg Ativan by mouth, appears quite cooperative on arrival. States that he wants to get hel p. While in the ED, patient was found to be hyperglycemic with a blood glucose in the 400s, he was given a total of 2 L of fluid, he was alkalotic on VBG, there was positive ketones, anion gap of 15. Does not appear to be in DKA at this point in time. Did give him 5 units of insulin while in the ER. Patient this point in time be started become combative, with an uncooperative, patient was given 20 of Geodon. Patient was placed on 2 L nasal cannula as he started he sat slightly at 88%, with 2 L nasal cannula he came up to 98%. He currently is stable. Patient will be admitted this point in time for substance abuse and hyperglycemia, will need 1a evaluation. - Medical Records Medical records reviewed: Yes I reviewed the patient's medical records. - Lab Data Lab results reviewed: Yes I reviewed the patient's lab results. Result diagrams: 12/31/18 00:44 12/31/18 00:44 Lab Results 12/31/18 12/31/18 12/31/18 Range/Units 00:44 00:44 01:00 WBC 7.8 (4.3-11.1) K/mcL RBC 4.12 L (4.19-5.50) M/mcL Hgb 11.7 L (12.9-16.9) g/dL Hct 35.0 L (37.5-50.1) % MCV 85.0 (83.0-100.0) fL MCH 28.4 (28.0-33.3) pg MCHC 33.4 (31.6-35.5) g/dL RDW 14.6 H (11.5-14.5) % Plt Count 195 (140-400) K/mcL MPV 9.4 (9.4-12.4) fL Immature Gran % 0.3 (0-4) % Seg Neutrophils % 73.5 % Lymphocytes % 14.2 % Monocytes % 11.0 % Eosinophils % 0.5 % Basophils % 0.5 % Neutrophils # 5.7 (1.6-8.9) K/mcL Lymphocytes # 1.1 (0.6-4.6) K/mcL Monocytes # 0.9 (0.0-1.3) K/mcL Eosinophils # 0.0 (0.0-0.6) K/mcL Basophils # 0.0 (0.0-0.2) K/mcL VBG pH (7.32-7.42) pH Units VBG pCO2 (41-51) mmHg VBG pO2 (25-50) mmHg VBG HCO3 (21-27) mEq/L Sodium 132 L (136-145) mEq/L Potassium 4.3 (3.5-5.1) mEq/L Chloride 99 (98-107) mEq/L Carbon Dioxide 18 L (23-29) mEq/L BUN 16 (6-20) mg/dL Creatinine 0.76 (0.70-1.30) mg/dL Est GFR ( Amer) > 60 (> 60) Est GFR (Non-Af Amer) > 60 (> 60) BUN/Creatinine Ratio 21 (6-26) Glucose 355 H (70-105) mg/dL POC Glucose (70-99) mg/dL Calculated Osmolality 289 (280-300) Calcium 9.4 (8.6-10.3) mg/dL Beta-Hydroxybutyric Acd (0.02-0.27) mmol/L TSH 1.966 (0.340-5.600) mcIU/mL Urine Color Yellow (Yellow) Urine Clarity Clear (Clear) Urine pH 6.0 (5.0-8.0) pH Units Ur Specific [place] > 1.030 H (1.010-1.025) Urine Protein Negative (Neg-Trace) mg/dL Urine Glucose (UA) >=1000 H (Normal) mg/dL Urine Ketones 80 H (Negative) mg/dL Urine Blood Negative (Negative) Urine Nitrite Negative (Negative) Urine Bilirubin Negative (Negative) Urine Urobilinogen Normal (Normal) mg/dL Ur Leukocyte Esterase Negative (Negative) Salicylates < 2.5 L (15.0-30.0) mg/dL Urine Opiates Screen (Pinzgk=240) ng/mL Acetaminophen < 10 L (10-20) mcg/mL Ur Barbiturates Screen (Ouoykz=626) ng/mL Ur Phencyclidine Scrn (Cutoff=25) ng/mL Ur Amphetamines Screen (Hidcmt=2914) ng/mL U Benzodiazepines Scrn (Axwuqd=738) ng/mL Urine Cocaine Screen (Cutoff= 300) ng/mL U Marijuana (THC) Screen (Cutoff = 50) ng/mL Ur Drug Screen Interp Ethyl Alcohol < 10 (Less than 10) mg/dL 12/31/18 12/31/18 12/31/18 Range/Units 01:00 03:23 03:32 WBC (4.3-11.1) K/mcL RBC (4.19-5.50) M/mcL Hgb (12.9-16.9) g/dL Hct (37.5-50.1) % MCV (83.0-100.0) fL MCH (28.0-33.3) pg MCHC (31.6-35.5) g/dL RDW (11.5-14.5) % Plt Count (140-400) K/mcL MPV (9.4-12.4) fL Immature Gran % (0-4) % Seg Neutrophils % % Lymphocytes % % Monocytes % % Eosinophils % % Basophils % % Neutrophils # (1.6-8.9) K/mcL Lymphocytes # (0.6-4.6) K/mcL Monocytes # (0.0-1.3) K/mcL Eosinophils # (0.0-0.6) K/mcL Basophils # (0.0-0.2) K/mcL VBG pH 7.51 H (7.32-7.42) pH Units VBG pCO2 26 L (41-51) mmHg VBG pO2 192 H (25-50) mmHg VBG HCO3 21 (21-27) mEq/L Sodium (136-145) mEq/L Potassium (3.5-5.1) mEq/L Chloride (98-107) mEq/L Carbon Dioxide (23-29) mEq/L BUN (6-20) mg/dL Creatinine (0.70-1.30) mg/dL Est GFR ( Amer) (> 60) Est GFR (Non-Af Amer) (> 60) BUN/Creatinine Ratio (6-26) Glucose (70-105) mg/dL POC Glucose (70-99) mg/dL Calculated Osmolality (280-300) Calcium (8.6-10.3) mg/dL Beta-Hydroxybutyric Acd > 2.00 H (0.02-0.27) mmol/L TSH (0.340-5.600) mcIU/mL Urine Color (Yellow) Urine Clarity (Clear) Urine pH (5.0-8.0) pH Units Ur Specific [place] (1.010-1.025) Urine Protein (Neg-Trace) mg/dL Urine Glucose (UA) (Normal) mg/dL Urine Ketones (Negative) mg/dL Urine Blood (Negative) Urine Nitrite (Negative) Urine Bilirubin (Negative) Urine Urobilinogen (Normal) mg/dL Ur Leukocyte Esterase (Negative) Salicylates (15.0-30.0) mg/dL Urine Opiates Screen Negative (Dosrkq=631) ng/mL Acetaminophen (10-20) mcg/mL Ur Barbiturates Screen Negative (Txldet=835) ng/mL Ur Phencyclidine Scrn Negative (Cutoff=25) ng/mL Ur Amphetamines Screen Positive H (Xniyrn=9798) ng/mL U Benzodiazepines Scrn Negative (Bftmkf=420) ng/mL Urine Cocaine Screen Negative (Cutoff= 300) ng/mL U Marijuana (THC) Screen Negative (Cutoff = 50) ng/mL Ur Drug Screen Interp See Below Ethyl Alcohol (Less than 10) mg/dL 12/31/18 Range/Units 04:08 WBC (4.3-11.1) K/mcL RBC (4.19-5.50) M/mcL Hgb (12.9-16.9) g/dL Hct (37.5-50.1) % MCV (83.0-100.0) fL MCH (28.0-33.3) pg MCHC (31.6-35.5) g/dL RDW (11.5-14.5) % Plt Count (140-400) K/mcL MPV (9.4-12.4) fL Immature Gran % (0-4) % Seg Neutrophils % % Lymphocytes % % Monocytes % % Eosinophils % % Basophils % % Neutrophils # (1.6-8.9) K/mcL Lymphocytes # (0.6-4.6) K/mcL Monocytes # (0.0-1.3) K/mcL Eosinophils # (0.0-0.6) K/mcL Basophils # (0.0-0.2) K/mcL VBG pH (7.32-7.42) pH Units VBG pCO2 (41-51) mmHg VBG pO2 (25-50) mmHg VBG HCO3 (21-27) mEq/L Sodium (136-145) mEq/L Potassium (3.5-5.1) mEq/L Chloride (98-107) mEq/L Carbon Dioxide (23-29) mEq/L BUN (6-20) mg/dL Creatinine (0.70-1.30) mg/dL Est GFR ( Amer) (> 60) Est GFR (Non-Af Amer) (> 60) BUN/Creatinine Ratio (6-26) Glucose (70-105) mg/dL POC Glucose 244 H (70-99) mg/dL Calculated Osmolality (280-300) Calcium (8.6-10.3) mg/dL Beta-Hydroxybutyric Acd (0.02-0.27) mmol/L TSH (0.340-5.600) mcIU/mL Urine Color (Yellow) Urine Clarity (Clear) Urine pH (5.0-8.0) pH Units Ur Specific [place] (1.010-1.025) Urine Protein (Neg-Trace) mg/dL Urine Glucose (UA) (Normal) mg/dL Urine Ketones (Negative) mg/dL Urine Blood (Negative) Urine Nitrite (Negative) Urine Bilirubin (Negative) Urine Urobilinogen (Normal) mg/dL Ur Leukocyte Esterase (Negative) Salicylates (15.0-30.0) mg/dL Urine Opiates Screen (Caxxpl=648) ng/mL Acetaminophen (10-20) mcg/mL Ur Barbiturates Screen (Dvznyb=551) ng/mL Ur Phencyclidine Scrn (Cutoff=25) ng/mL Ur Amphetamines Screen (Qkkvps=2744) ng/mL U Benzodiazepines Scrn (Avfmsc=298) ng/mL Urine Cocaine Screen (Cutoff= 300) ng/mL U Marijuana (THC) Screen (Cutoff = 50) ng/mL Ur Drug Screen Interp Ethyl Alcohol (Less than 10) mg/dL - EKG Data EKG #1 EKG attestation: Yes I reviewed and interpreted this EKG. EKG results narrative: EKG performed at 441 with ventricular rate of 122, regular rhythm, normal axis, no ST segment elevation or depression Oliva - Oliva Situation: Demographics, MOA Background: Presenting Complaint, Relevant PMH, Meds, & Allergies Assessment: Vital Signs, Course and respsone to treatment, Exam Concerns, Patient/Family Expectation, Pertinant Lab Results, Outstanding Labs Recommendation: Barrier(s) to disposition, Recommendation based on pending studies, treatments, or consults Oliva Report Given to: Dr. Marya Baptiste Repor Time: 06:13 (accepted)
[2018-12-31] MEDS ORDERED: *HR* LORazepam 1 MG TABLET PO ONE ×2 (00:29→04:14)
[2018-12-31 01:07] LABS: Bilirubin,Urine Negative (Negative); Blood,Urine Negative (Negative); Clarity,Urine Clear (Clear); Color,Urine Yellow (Yellow); Glucose,Urine (UA) >=1000 mg/dL (Normal); Ketones,Urine 80 mg/dL (Negative); Leukocyte Esterase,Urine Negative (Negative); Nitrite,Urine Negative (Negative); Protein,Urine Negative (Neg-Trace); Specific Gravity,Urine > 1.030 (1.010-1.025); Urobilinogen,Urine Normal (Normal)
[2018-12-31 01:10] LABS: Basophils % 0.5 %; Eosinophils % 0.5 %; Hemoglobin 11.7 g/dL (12.9-16.9); Immature Granulocytes % 0.3 % (0-4); Lymphocytes # 1.1 K/mcL (0.6-4.6); Lymphocytes % 14.2 %; Mean Corpuscular HGB Conc 33.4 g/dL (31.6-35.5); Mean Corpuscular Hemoglobin 28.4 pg (28.0-33.3); Mean Platelet Volume 9.4 fL (9.4-12.4); Monocytes # 0.9 K/mcL (0.0-1.3); Neutrophils # 5.7 K/mcL (1.6-8.9); Platelet Count 195 K/mcL (140-400); Red Blood Count 4.12 M/mcL (4.19-5.50); Red Cell Distribution Width 14.6 % (11.5-14.5); Segmented Neutrophils % 73.5 %
[2018-12-31 01:22] LABS: Acetaminophen < 10 mcg/mL (10-20); BUN/Creatinine Ratio 21 (6-26); Blood Urea Nitrogen 16 mg/dL (6-20); Calcium 9.4 mg/dL (8.6-10.3); Carbon Dioxide 18 mEq/L (23-29); Chloride 99 mEq/L (98-107); Ethanol < 10 mg/dL (Less than 10); Glucose 355 mg/dL (70-105); Osmolality,Calculated 289 (280-300); Potassium 4.3 mEq/L (3.5-5.1); Salicylate < 2.5 mg/dL (15.0-30.0); Sodium 132 mEq/L (136-145); eGFR For Non-African Americans > 60 (> 60)
[2018-12-31 01:35] LABS: Thyroid Stimulating Hormone 1.966 mcIU/mL (0.340-5.600)
[2018-12-31] MEDS ORDERED: 0.9 % Sodium Chloride 1,000 ML IVC ONE ×2 (01:43→04:17)
[2018-12-31] MEDS ORDERED: Insulin Regular, Human 100 UNIT/ML SQ ONE (02:18)
[2018-12-31 02:21] LABS: Amphetamine Screen,Urine Positive ng/mL (Cutoff=1000); Barbiturate Screen,Urine Negative ng/mL (Cutoff=200); Benzodiazepines Screen,Urine Negative ng/mL (Cutoff=200); Cannabinoid Screen,Urine Negative ng/mL (Cutoff = 50); Cocaine Screen,Urine Negative ng/mL (Cutoff= 300); Opiate Screen,Urine Negative ng/mL (Cutoff=300); Phencyclidine Screen,Urine Negative ng/mL (Cutoff=25)
--- NOTE | 2018-12-31 02:54 | Emergency Department Note ---
Disposition Clinical Impression: Substance abuse, Hyperglycemia Disposition: Admitted As Inpatient Condition: Fair Referrals: NONE,PCP [Primary Care Provider] - Forms: ED Satisfaction Letter, Work/School Release General Adult HPI - General Chief complaint: ED General Medical Stated complaint: Help with Glucose Time Seen by Provider: 12/30/18 22:47 Source: patient Mode of arrival: ambulatory Limitations: no limitations Nursing Notes Reviewed: Yes Vital Signs Reviewed: Yes - History of Present Illness Pain Scale: 0 - Related Data Home Medications Medication Instructions Recorded Confirmed Insulin NPH/REG 70/30 (HUMAN) 20 - 25 unit SQ QAM 11/14/18 11/14/18 [Humulin 70/30 Vial] Insulin NPH/REG 70/30 (HUMAN) 20 - 25 unit SQ QPM 11/14/18 11/14/18 [Humulin 70/30 Vial] Insulin Regular Human [Humulin R] 2 - 10 units SQ TID 11/14/18 11/14/18 Previous Rx's Medication Instructions Recorded Gabapentin [Neurontin] 800 mg PO TID 14 Days #42 tablet 06/08/18 Venlafaxine XR (24 HR) [Effexor Xr] 150 mg PO DAILY 14 Days #14 06/08/18 cap.er.24h Phenytoin ER [Dilantin ER] 100 mg PO TID 14 Days #42 capsule 07/03/18 Permethrin CRM [Elimite] 1 appl TP ONCE #1 tube 11/15/18 Allergies Allergy/AdvReac Type Severity Reaction Status Date / Time insulin glargine Allergy Blister Verified 07/02/18 22:17 [From Lantus] diphenhydramine AdvReac Intermediate See Verified 07/02/18 22:17 [From Benadryl] Comments Constitutional: Denies: fever, chills, weakness, weight change ENT ED: Denies: ear pain, throat pain, dental pain, hearing loss, epistaxis, congestion, dysphagia Cardiovascular: Denies: chest pain, palpitations, dyspnea on exertion, edema, syncope Respiratory: Denies: cough, dyspnea, wheezes, hemoptysis, stridor Gastrointestinal: Denies: abdominal pain, nausea, vomiting, diarrhea, constipation, hematemesis, melena, hematochezia Genitourinary: Denies: urgency, dysuria, frequency, hematuria Musculoskeletal: Denies: back pain, neck pain, arthralgia, myalgia Neurological: Denies: headache, weakness, numbness, paresthesias, confusion, abnormal gait, vertigo Psychiatric: Reports: anxiety, depression. Denies: suicidal thoughts, homicidal thoughts, auditory hallucinations, visual hallucinations Past Medical History - Past Medical History Medical history: Reports: diabetes, hepatitis, seizures, other Surgical history: Reports: orthopedic, other Psychiatric history: Reports: anxiety, previous psychiatric hospitalization - Social History Smoking Status: Current every day smoker Smokeless Tobacco Status: No Alcohol use: Reports: rarely Drug use: Reports: IV Drug Use Physical Exam - General Limitations: no limitations General appearance: alert, appears intoxicated (Actively scratching himself, moving his body frequently, tapping his feet repetitively) Course Vital Signs Temperature 98.7 F 12/30/18 22:48 Pulse Rate 140 12/30/18 22:48 Respiratory Rate 22 12/30/18 22:48 Blood Pressure 167/92 12/30/18 22:48 O2 Sat by Pulse Oximetry 99 12/30/18 22:48 Temperature 98.7 F 12/31/18 01:00 Pulse Rate 101 12/31/18 05:42 Respiratory Rate 18 12/31/18 05:42 Blood Pressure 149/92 12/31/18 05:42 O2 Sat by Pulse Oximetry 98 12/31/18 05:42 Oxygen Delivery Oxygen Delivery Nasal Cannula Medical Decision Making - Medical Records Medical records reviewed: Yes I reviewed the patient's medical records. - Lab Data Lab results reviewed: Yes I reviewed the patient's lab results. Result diagrams: 12/31/18 00:44 12/31/18 00:44 Lab Results 12/31/18 12/31/18 12/31/18 Range/Units 00:44 00:44 01:00 WBC 7.8 (4.3-11.1) K/mcL RBC 4.12 L (4.19-5.50) M/mcL Hgb 11.7 L (12.9-16.9) g/dL Hct 35.0 L (37.5-50.1) % MCV 85.0 (83.0-100.0) fL MCH 28.4 (28.0-33.3) pg MCHC 33.4 (31.6-35.5) g/dL RDW 14.6 H (11.5-14.5) % Plt Count 195 (140-400) K/mcL MPV 9.4 (9.4-12.4) fL Immature Gran % 0.3 (0-4) % Seg Neutrophils % 73.5 % Lymphocytes % 14.2 % Monocytes % 11.0 % Eosinophils % 0.5 % Basophils % 0.5 % Neutrophils # 5.7 (1.6-8.9) K/mcL Lymphocytes # 1.1 (0.6-4.6) K/mcL Monocytes # 0.9 (0.0-1.3) K/mcL Eosinophils # 0.0 (0.0-0.6) K/mcL Basophils # 0.0 (0.0-0.2) K/mcL VBG pH (7.32-7.42) pH Units VBG pCO2 (41-51) mmHg VBG pO2 (25-50) mmHg VBG HCO3 (21-27) mEq/L Sodium 132 L (136-145) mEq/L Potassium 4.3 (3.5-5.1) mEq/L Chloride 99 (98-107) mEq/L Carbon Dioxide 18 L (23-29) mEq/L BUN 16 (6-20) mg/dL Creatinine 0.76 (0.70-1.30) mg/dL Est GFR ( Amer) > 60 (> 60) Est GFR (Non-Af Amer) > 60 (> 60) BUN/Creatinine Ratio 21 (6-26) Glucose 355 H (70-105) mg/dL POC Glucose (70-99) mg/dL Calculated Osmolality 289 (280-300) Calcium 9.4 (8.6-10.3) mg/dL Beta-Hydroxybutyric Acd (0.02-0.27) mmol/L TSH 1.966 (0.340-5.600) mcIU/mL Urine Color Yellow (Yellow) Urine Clarity Clear (Clear) Urine pH 6.0 (5.0-8.0) pH Units Ur Specific Serena > 1.030 H (1.010-1.025) Urine Protein Negative (Neg-Trace) mg/dL Urine Glucose (UA) >=1000 H (Normal) mg/dL Urine Ketones 80 H (Negative) mg/dL Urine Blood Negative (Negative) Urine Nitrite Negative (Negative) Urine Bilirubin Negative (Negative) Urine Urobilinogen Normal (Normal) mg/dL Ur Leukocyte Esterase Negative (Negative) Salicylates < 2.5 L (15.0-30.0) mg/dL Urine Opiates Screen (Xxxabu=924) ng/mL Acetaminophen < 10 L (10-20) mcg/mL Ur Barbiturates Screen (Skwkri=901) ng/mL Ur Phencyclidine Scrn (Cutoff=25) ng/mL Ur Amphetamines Screen (Msheti=4408) ng/mL U Benzodiazepines Scrn (Fflomu=835) ng/mL Urine Cocaine Screen (Cutoff= 300) ng/mL U Marijuana (THC) Screen (Cutoff = 50) ng/mL Ur Drug Screen Interp Ethyl Alcohol < 10 (Less than 10) mg/dL 12/31/18 12/31/18 12/31/18 Range/Units 01:00 03:23 03:32 WBC (4.3-11.1) K/mcL RBC (4.19-5.50) M/mcL Hgb (12.9-16.9) g/dL Hct (37.5-50.1) % MCV (83.0-100.0) fL MCH (28.0-33.3) pg MCHC (31.6-35.5) g/dL RDW (11.5-14.5) % Plt Count (140-400) K/mcL MPV (9.4-12.4) fL Immature Gran % (0-4) % Seg Neutrophils % % Lymphocytes % % Monocytes % % Eosinophils % % Basophils % % Neutrophils # (1.6-8.9) K/mcL Lymphocytes # (0.6-4.6) K/mcL Monocytes # (0.0-1.3) K/mcL Eosinophils # (0.0-0.6) K/mcL Basophils # (0.0-0.2) K/mcL VBG pH 7.51 H (7.32-7.42) pH Units VBG pCO2 26 L (41-51) mmHg VBG pO2 192 H (25-50) mmHg VBG HCO3 21 (21-27) mEq/L Sodium (136-145) mEq/L Potassium (3.5-5.1) mEq/L Chloride (98-107) mEq/L Carbon Dioxide (23-29) mEq/L BUN (6-20) mg/dL Creatinine (0.70-1.30) mg/dL Est GFR ( Amer) (> 60) Est GFR (Non-Af Amer) (> 60) BUN/Creatinine Ratio (6-26) Glucose (70-105) mg/dL POC Glucose (70-99) mg/dL Calculated Osmolality (280-300) Calcium (8.6-10.3) mg/dL Beta-Hydroxybutyric Acd > 2.00 H (0.02-0.27) mmol/L TSH (0.340-5.600) mcIU/mL Urine Color (Yellow) Urine Clarity (Clear) Urine pH (5.0-8.0) pH Units Ur Specific [place] (1.010-1.025) Urine Protein (Neg-Trace) mg/dL Urine Glucose (UA) (Normal) mg/dL Urine Ketones (Negative) mg/dL Urine Blood (Negative) Urine Nitrite (Negative) Urine Bilirubin (Negative) Urine Urobilinogen (Normal) mg/dL Ur Leukocyte Esterase (Negative) Salicylates (15.0-30.0) mg/dL Urine Opiates Screen Negative (Mtoruq=055) ng/mL Acetaminophen (10-20) mcg/mL Ur Barbiturates Screen Negative (Vemrlt=294) ng/mL Ur Phencyclidine Scrn Negative (Cutoff=25) ng/mL Ur Amphetamines Screen Positive H (Jjnfiw=9572) ng/mL U Benzodiazepines Scrn Negative (Bikwya=038) ng/mL Urine Cocaine Screen Negative (Cutoff= 300) ng/mL U Marijuana (THC) Screen Negative (Cutoff = 50) ng/mL Ur Drug Screen Interp See Below Ethyl Alcohol (Less than 10) mg/dL 12/31/18 Range/Units 04:08 WBC (4.3-11.1) K/mcL RBC (4.19-5.50) M/mcL Hgb (12.9-16.9) g/dL Hct (37.5-50.1) % MCV (83.0-100.0) fL MCH (28.0-33.3) pg MCHC (31.6-35.5) g/dL RDW (11.5-14.5) % Plt Count (140-400) K/mcL MPV (9.4-12.4) fL Immature Gran % (0-4) % Seg Neutrophils % % Lymphocytes % % Monocytes % % Eosinophils % % Basophils % % Neutrophils # (1.6-8.9) K/mcL Lymphocytes # (0.6-4.6) K/mcL Monocytes # (0.0-1.3) K/mcL Eosinophils # (0.0-0.6) K/mcL Basophils # (0.0-0.2) K/mcL VBG pH (7.32-7.42) pH Units VBG pCO2 (41-51) mmHg VBG pO2 (25-50) mmHg VBG HCO3 (21-27) mEq/L Sodium (136-145) mEq/L Potassium (3.5-5.1) mEq/L Chloride (98-107) mEq/L Carbon Dioxide (23-29) mEq/L BUN (6-20) mg/dL Creatinine (0.70-1.30) mg/dL Est GFR ( Amer) (> 60) Est GFR (Non-Af Amer) (> 60) BUN/Creatinine Ratio (6-26) Glucose (70-105) mg/dL POC Glucose 244 H (70-99) mg/dL Calculated Osmolality (280-300) Calcium (8.6-10.3) mg/dL Beta-Hydroxybutyric Acd (0.02-0.27) mmol/L TSH (0.340-5.600) mcIU/mL Urine Color (Yellow) Urine Clarity (Clear) Urine pH (5.0-8.0) pH Units Ur Specific [place] (1.010-1.025) Urine Protein (Neg-Trace) mg/dL Urine Glucose (UA) (Normal) mg/dL Urine Ketones (Negative) mg/dL Urine Blood (Negative) Urine Nitrite (Negative) Urine Bilirubin (Negative) Urine Urobilinogen (Normal) mg/dL Ur Leukocyte Esterase (Negative) Salicylates (15.0-30.0) mg/dL Urine Opiates Screen (Haxlez=852) ng/mL Acetaminophen (10-20) mcg/mL Ur Barbiturates Screen (Jcisbq=866) ng/mL Ur Phencyclidine Scrn (Cutoff=25) ng/mL Ur Amphetamines Screen (Nipkhu=1238) ng/mL U Benzodiazepines Scrn (Nzwkae=831) ng/mL Urine Cocaine Screen (Cutoff= 300) ng/mL U Marijuana (THC) Screen (Cutoff = 50) ng/mL Ur Drug Screen Interp Ethyl Alcohol (Less than 10) mg/dL - EKG Data EKG #1 EKG attestation: Yes I reviewed and interpreted this EKG. EKG results narrative: Sinus tachycardia with ventricular rate of 122. No ST segment elevation or depression. Attestation Statement - Attestation Attestation: I, Jose Moon MD, personally evaluated this patient and discussed their management with the resident physician. I reviewed the resident's note and agree with the documented findings, medical decision making, and plan of care. 33-year-old male with long history of psychiatric issues presents to the emergency department with a complaint that he recently got out of [facility] several days ago. He states that since getting out of [facility] he has not had his psychia tric medicines. He does admit to drug abuse and has been using meth and fentanyl. He is diabetic and does not have any way to check his sugar. He states he has been taking his insulin. Patient here requesting help for his psychiatric issues as well as his drug abuse. He denies any suicidal or h omicidal ideation at present. He is not sure if he is having any hallucinations. On examination patient is a well-developed well-nourished male in no acute distress. Patient appears to be obviously under the influence of mind altering drugs. Speech is difficult to understand. He is very restless and digging at his skin. Breath sounds are equal bilaterally with no rales or wheezes noted. Heart is regular with a moderate tachycardia. Abdomen soft with positive bowel sounds. Labs reviewed. Patient has alkalosis secondary to hyperventilation. Positive ketones and serum and urine. Anion gap of 15. EKG shows sinus tachycardia with no ischemic changes. Patient progressively became more agitated and restless and uncooperative. Diaphoretic. He was given Geodon 20 mg IM with good sedation effect. However he continues to be tachycardic. Abdomen not feel we can medically clear the patient at this point to be evaluated by psychiatry and we will consult the hospitalist for medical admission. The hospitalist, Dr. Malhotra, was consulted and accepted admission of the patient.
[2018-12-31] MEDS ORDERED: Insulin LISPRO 300 UNITS/3 ML VIAL SQ ONE (03:15)
[2018-12-31 03:36] LABS: VBG HCO3 21 mEq/L (21-27); VBG PCO2 26 mmHg (41-51); VBG PH 7.51 pH Units (7.32-7.42); VBG PO2 192 mmHg (25-50)
[2018-12-31] MEDS ORDERED: Ziprasidone injection 20 MG/ML VIAL IM ONE (04:27)
[2018-12-31] MEDS ORDERED: Ondansetron 4 MG/2 ML VIAL IVP ONE (04:40)
[2018-12-31] MEDS ORDERED: Naloxone 0.4 MG/ML INJ IVP PRN (07:20)
[2018-12-31] MEDS ORDERED: *HR* Dextrose 50 % in Water (Syg) 50 ML SYRINGE IVP PRN ×4 (07:23→14:48)
[2018-12-31] MEDS ORDERED: D5% in Water 1,000 ML IVC PRN ×2 (07:23→14:48)
[2018-12-31] MEDS ORDERED: Dextrose Gel 15 GM/37.5 ML TUBE PO PRN ×4 (07:23→14:48)
[2018-12-31] MEDS ORDERED: Haloperidol Lactate 5 MG/ML VIAL IVP PRN (07:25)
[2018-12-31] MEDS ORDERED: *HR* LORazepam 2 MG/ML VIAL IVP PRN ×2 (07:26→21:57)
[2018-12-31] MEDS ORDERED: Insulin LISPRO 300 UNITS/3 ML VIAL SQ SCH (07:30)
[2018-12-31] MEDS ORDERED: Insulin NPH/REG 70/30 100 UNIT/ML (x5UNIT) SQ SCH ×2 (07:45→15:30)
[2018-12-31] MEDS ORDERED: Insulin Regular, Human 100 UNIT/ML IV PRN (07:48)
[2018-12-31] MEDS ORDERED: D5% in 0.45% NACL w KCl 20 MEQ/1,000 ML MLS IVC PRN (07:48)
--- NOTE | 2018-12-31 08:21 | Internal Med History&Physical ---
Date of Encounter: 12/31/18 Time of Encounter: 08:00 Internal Medicine - H&P: HPI Chief complaint: Suicidal ideation, agitation, elevated blood sugar History of present illness: Mr. Lemus is a 33 year old male with pmh of type 1 DM with poor compliance, schizoaffective disorder, depression, multiple hospitalizations for DKA presenting with complaints of doing drugs and feeling overwhelmed with life since being recently released from nursing home. Patient says he has been doing iv heroin and methamphetamines recently and has run out of his regular psych meds. Patient says he needs help and would like to get back on his meds. In the ER, he was apparently very agitated and was going into a manic phase, so he was given geodon and he is very drowsy at this time and he is unable to provide any history. He had an elevated blood sugar in the 300s on his labs and has an anion gap of 15 and he is being admitted for further management Past Med Surg Social Fam HX - Past Medical History Medical history: diabetes, hepatitis, seizures, other Additional medical history: Type I Diabetic. Hep C Psychiatric history: anxiety, previous psychiatric hospitalization - Past Surgical History Surgical History: orthopedic, other Additional surgical history: right ankle - Social History Smoking Status: Current every day smoker Smokeless Tobacco Status: No Alcohol use: rarely Drug use: IV Drug Use - Family History Father Family Member Ethnicity: Non- Living Status: Hx Family Cardiac Disorders: Yes ([place]) Hx Family Endocrine Disorder: Yes (DM) Mother Family Member Ethnicity: Non- Living Status: Still Living Sister Family Member Ethnicity: Non- Living Status: Still Living Internal Medicine - H&P: Meds Gabapentin [Neurontin] 800 mg PO TID 14 Days #42 tablet 06/08/18 [Rx] Venlafaxine XR (24 HR) [Effexor Xr] 150 mg PO DAILY 14 Days #14 cap.er.24h 06/08/18 [Rx] Phenytoin ER [Dilantin ER] 100 mg PO TID 14 Days #42 capsule 07/03/18 [Rx] Insulin NPH/REG 70/30 (HUMAN) [Humulin 70/30 Vial] 20 - 25 unit SQ QAM 11/14/18 [History] Insulin NPH/REG 70/30 (HUMAN) [Humulin 70/30 Vial] 20 - 25 unit SQ QPM 11/14/18 [History] Insulin Regular Human [Humulin R] 2 - 10 units SQ TID 11/14/18 [History] Permethrin CRM [Elimite] 1 appl TP ONCE #1 tube 11/15/18 [Rx] Allergy/AdvReac Type Severity Reaction Status Date / Time insulin glargine Allergy Blister Verified 07/02/18 22:17 [From Lantus] diphenhydramine AdvReac Intermediate See Verified 07/02/18 22:17 [From Benadryl] Comments ROS unobtainable: due to mental status All Systems PM: A 10-system review of systems was performed and is negative for pertinent findings except as documented above in the HPI. - Constitutional Vitals: Temp Pulse Resp BP Pulse Ox 98.7 F 97 18 136/86 100 12/31/18 01:00 12/31/18 07:48 12/31/18 07:48 12/31/18 07:48 12/31/18 07:48 Exam: Extremely drowsy, difficult to arouse - Head Head exam: Present: atraumatic, normocephalic - Eye Eye exam: Present: PERRL, conjuntiva pink, sclera anicteric Pupils: Present: PERRL - Neck Neck exam general surgery: Present: supple, trachea midline. Absent: lymphadenopathy - Respiratory Respiratory exam: Present: CTAB. Absent: accessory muscle use, rales, rhonchi, wheezes - Cardiovascular Cardiovascular exam: Present: RRR, +S1, +S2. Absent: diastolic murmur, gallop, rubs, systolic murmur - GI/Abdominal GI/Abdominal exam: Present: normal bowel sounds, soft, no peritoneal signs. Absent: distended, tenderness - Extremities Exam Extremities exam: Present: warm, radial pulses palpable and symmetrical. Absent: calf tenderness, cyanotic, pedal edema - Neurological Exam Neurological exam: Present: CN II-XII intact, oriented X3, no focal deficits. Absent: pronater drift, facial droop, speech deficit - Skin Skin exam: Present: dry, intact Internal Med - H&P Results - Labs CBC & Chem 7: 12/31/18 00:44 12/31/18 00:44 Labs: Short CBC 12/31/18 Range/Units 00:44 WBC 7.8 (4.3-11.1) K/mcL Hgb 11.7 L (12.9-16.9) g/dL Hct 35.0 L (37.5-50.1) % Plt Count 195 (140-400) K/mcL Neutrophils # 5.7 (1.6-8.9) K/mcL BMP 12/31/18 00:44 Sodium 132 L Potassium 4.3 Chloride 99 Carbon Dioxide 18 L BUN 16 Creatinine 0.76 Glucose 355 H Calcium 9.4 Urine 12/31/18 Range/Units 01:00 Urine Color Yellow (Yellow) Urine Clarity Clear (Clear) Urine pH 6.0 (5.0-8.0) pH Units Ur Specific [place] > 1.030 H (1.010-1.025) Urine Protein Negative (Neg-Trace) mg/dL Urine Glucose (UA) >=1000 H (Normal) mg/dL - ABG Interpretation ABG results: 12/31/18 03:32 VBG pH 7.51 H VBG pCO2 26 L VBG pO2 192 H VBG HCO3 21 - Assessment and plan (1) DKA (diabetic ketoacidoses) Current Visit: Yes Status: Acute Assessment and plan: Pt comes in with non [id number] with insulin, elevated blood sugar in the 300s, and elevated beta hydroxybutyric acid, and anion gap of 15 Start on insulin drip with DKA protocol, serial BMPs till anion gap closes. Start sc insulin when gap closes Qualifiers: Diabetes mellitus type: type 1 Diabetes mellitus complication detail: without coma Qualified Code(s): E10.10 - Type 1 diabetes mellitus with ketoacidosis without coma (2) Agitation Current Visit: Yes Status: Acute Assessment and plan: Agitation and feelings of helplessness. Recieved geodon in ER Continue haldol and ativan PRN. Psychiatry consult (3) Substance abuse Current Visit: Yes Status: Chronic Assessment and plan: Iv heorin abuse and meth abuse with withdrawal in ER. Ativan prn. Psychiatry consulted (4) DVT prophylaxis Current Visit: Yes Status: Acute Assessment and plan: SCDs - Time Spent With Patient Total time spent is greater than 50% in coordination of care (as documented) at patient's floor/unit and/or counseling patient:
[2018-12-31 09:41] LABS: Estimated Average Glucose 237 mg/dl; Hemoglobin A1C 9.9 %
[2018-12-31] MEDS: Insulin Human Regular 100 UNIT in 0.9 % Sodium Chloride 100 ML IVC SCH ×3 (10:20→23:31)
[2018-12-31 14:28] LABS: BUN/Creatinine Ratio 20 (6-26); Blood Urea Nitrogen 10 mg/dL (6-20); Calcium 8.8 mg/dL (8.6-10.3); Carbon Dioxide 26 mEq/L (23-29); Chloride 108 mEq/L (98-107); Glucose 38 mg/dL (70-105); Osmolality,Calculated 284 (280-300); Potassium 3.6 mEq/L (3.5-5.1); Sodium 139 mEq/L (136-145); eGFR For Non-African Americans > 60 (> 60)
[2018-12-31] MEDS ORDERED: *HR* Dextrose 50 % in Water (Syg) 50 ML SYRINGE IVP ONE (14:42)
[2018-12-31] MEDS ORDERED: Insulin DETEMIR 100 UNIT/ML X5UNITS SQ ONE (14:47)
[2018-12-31] MEDS ORDERED: Dextrose 50 % in Water (Vial) 50 ML in D5% in 0.2% NACL 500 ML IVC SCH (15:00)
--- NOTE | 2018-12-31 15:29 | Emergency Department Note ---
Disposition Clinical Impression: Substance abuse, Hyperglycemia Disposition: Admitted As Inpatient Condition: Fair Referrals: NONE,PCP [Primary Care Provider] - General Adult HPI - General Chief complaint: ED General Medical Stated complaint: Help with Glucose Time Seen by Provider: 12/30/18 22:47 Source: patient Mode of arrival: ambulatory Limitations: no limitations - History of Present Illness Pain Scale: 0 - Related Data Home Medications Medication Instructions Recorded Confirmed Insulin NPH/REG 70/30 (HUMAN) 20 - 25 unit SQ QAM 11/14/18 11/14/18 [Humulin 70/30 Vial] Insulin NPH/REG 70/30 (HUMAN) 20 - 25 unit SQ QPM 11/14/18 11/14/18 [Humulin 70/30 Vial] Insulin Regular Human [Humulin R] 2 - 10 units SQ TID 11/14/18 11/14/18 Previous Rx's Medication Instructions Recorded Gabapentin [Neurontin] 800 mg PO TID 14 Days #42 tablet 06/08/18 Venlafaxine XR (24 HR) [Effexor Xr] 150 mg PO DAILY 14 Days #14 06/08/18 cap.er.24h Phenytoin ER [Dilantin ER] 100 mg PO TID 14 Days #42 capsule 07/03/18 Permethrin CRM [Elimite] 1 appl TP ONCE #1 tube 11/15/18 Allergies Allergy/AdvReac Type Severity Reaction Status Date / Time insulin glargine Allergy Blister Verified 07/02/18 22:17 [From Lantus] diphenhydramine AdvReac Intermediate See Verified 07/02/18 22:17 [From Benadryl] Comments Constitutional: Denies: fever, chills, weakness, weight change ENT ED: Denies: ear pain, throat pain, dental pain, hearing loss, epistaxis, congestion, dysphagia Cardiovascular: Denies: chest pain, palpitations, dyspnea on exertion, edema, syncope Respiratory: Denies: cough, dyspnea, wheezes, hemoptysis, stridor Gastrointestinal: Denies: abdominal pain, nausea, vomiting, diarrhea, constipation, hematemesis, melena, hematochezia Genitourinary: Denies: urgency, dysuria, frequency, hematuria Musculoskeletal: Denies: back pain, neck pain, arthralgia, myalgia Neurological: Denies: headache, weakness, numbness, paresthesias, confusion, abnormal gait, vertigo Psychiatric: Reports: anxiety, depression. Denies: suicidal thoughts, homicidal thoughts, auditory hallucinations, visual hallucinations Past Medical History - Past Medical History Medical history: Reports: diabetes, hepatitis, seizures, other Surgical history: Reports: orthopedic, other Psychiatric history: Reports: anxiety, previous psychiatric hospitalization - Social History Smoking Status: Current every day smoker Smokeless Tobacco Status: No Alcohol use: Reports: rarely Drug use: Reports: IV Drug Use Physical Exam - General Limitations: no limitations General appearance: alert, appears intoxicated (Actively scratching himself, moving his body frequently, tapping his feet repetitively) Course Course Narrative: accepted sign out from the night team. This is a patient that was found to be in hyperglycemia hyperosmolar syndrome and started on an insulin drip. He also has a significant history of meth abuse. Patient is waiting to go to a room on the medicine step down floors and has been acceptd to theri service. It appearst hat the floors orders have been placed and that he otherwise is stable. In the even of an emergency we will conteut to genny in the ED. He did howver have one abnormal rpeat labl vlaue of 34, which I have instructed nursing staff to start the floor orders as treat him with D50 and crackers and soda. Nursing staff has assured me they will start the floor orders now Vital Signs Temperature 98.7 F 12/30/18 22:48 Pulse Rate 140 12/30/18 22:48 Respiratory Rate 22 12/30/18 22:48 Blood Pressure 167/92 12/30/18 22:48 O2 Sat by Pulse Oximetry 99 12/30/18 22:48 Temperature 98.7 F 12/31/18 01:00 Pulse Rate 97 12/31/18 10:31 Respiratory Rate 18 12/31/18 10:31 Blood Pressure 129/83 12/31/18 10:31 O2 Sat by Pulse Oximetry 100 12/31/18 10:31 Oxygen Delivery Oxygen Delivery Room Air Medical Decision Making - Lab Data Result diagrams: 12/31/18 00:44 12/31/18 13:00 Lab Results 12/31/18 12/31/18 12/31/18 Range/Units 00:44 00:44 00:44 WBC 7.8 (4.3-11.1) K/mcL RBC 4.12 L (4.19-5.50) M/mcL Hgb 11.7 L (12.9-16.9) g/dL Hct 35.0 L (37.5-50.1) % MCV 85.0 (83.0-100.0) fL MCH 28.4 (28.0-33.3) pg MCHC 33.4 (31.6-35.5) g/dL RDW 14.6 H (11.5-14.5) % Plt Count 195 (140-400) K/mcL MPV 9.4 (9.4-12.4) fL Immature Gran % 0.3 (0-4) % Seg Neutrophils % 73.5 % Lymphocytes % 14.2 % Monocytes % 11.0 % Eosinophils % 0.5 % Basophils % 0.5 % Neutrophils # 5.7 (1.6-8.9) K/mcL Lymphocytes # 1.1 (0.6-4.6) K/mcL Monocytes # 0.9 (0.0-1.3) K/mcL Eosinophils # 0.0 (0.0-0.6) K/mcL Basophils # 0.0 (0.0-0.2) K/mcL VBG pH (7.32-7.42) pH Units VBG pCO2 (41-51) mmHg VBG pO2 (25-50) mmHg VBG HCO3 (21-27) mEq/L Sodium 132 L (136-145) mEq/L Potassium 4.3 (3.5-5.1) mEq/L Chloride 99 (98-107) mEq/L Carbon Dioxide 18 L (23-29) mEq/L BUN 16 (6-20) mg/dL Creatinine 0.76 (0.70-1.30) mg/dL Est GFR ( Amer) > 60 (> 60) Est GFR (Non-Af Amer) > 60 (> 60) BUN/Creatinine Ratio 21 (6-26) Glucose 355 H (70-105) mg/dL POC Glucose (70-99) mg/dL Est Mean Plasma Glucose 237 mg/dl Hemoglobin A1c 9.9 H ( - 5.6) % Calculated Osmolality 289 (280-300) Calcium 9.4 (8.6-10.3) mg/dL Beta-Hydroxybutyric Acd (0.02-0.27) mmol/L TSH 1.966 (0.340-5.600) mcIU/mL Urine Color (Yellow) Urine Clarity (Clear) Urine pH (5.0-8.0) pH Units Ur Specific [place] (1.010-1.025) Urine Protein (Neg-Trace) mg/dL Urine Glucose (UA) (Normal) mg/dL Urine Ketones (Negative) mg/dL Urine Blood (Negative) Urine Nitrite (Negative) Urine Bilirubin (Negative) Urine Urobilinogen (Normal) mg/dL Ur Leukocyte Esterase (Negative) Salicylates < 2.5 L (15.0-30.0) mg/dL Urine Opiates Screen (Vxlrog=509) ng/mL Acetaminophen < 10 L (10-20) mcg/mL Ur Barbiturates Screen (Pqhgge=036) ng/mL Ur Phencyclidine Scrn (Cutoff=25) ng/mL Ur Amphetamines Screen (Qkotqm=0865) ng/mL U Benzodiazepines Scrn (Kvannn=026) ng/mL Urine Cocaine Screen (Cutoff= 300) ng/mL U Marijuana (THC) Screen (Cutoff = 50) ng/mL Ur Drug Screen Interp Ethyl Alcohol < 10 (Less than 10) mg/dL 12/31/18 12/31/18 12/31/18 Range/Units 00:56 01:00 01:00 WBC (4.3-11.1) K/mcL RBC (4.19-5.50) M/mcL Hgb (12.9-16.9) g/dL Hct (37.5-50.1) % MCV (83.0-100.0) fL MCH (28.0-33.3) pg MCHC (31.6-35.5) g/dL RDW (11.5-14.5) % Plt Count (140-400) K/mcL MPV (9.4-12.4) fL Immature Gran % (0-4) % Seg Neutrophils % % Lymphocytes % % Monocytes % % Eosinophils % % Basophils % % Neutrophils # (1.6-8.9) K/mcL Lymphocytes # (0.6-4.6) K/mcL Monocytes # (0.0-1.3) K/mcL Eosinophils # (0.0-0.6) K/mcL Basophils # (0.0-0.2) K/mcL VBG pH (7.32-7.42) pH Units VBG pCO2 (41-51) mmHg VBG pO2 (25-50) mmHg VBG HCO3 (21-27) mEq/L Sodium (136-145) mEq/L Potassium (3.5-5.1) mEq/L Chloride (98-107) mEq/L Carbon Dioxide (23-29) mEq/L BUN (6-20) mg/dL Creatinine (0.70-1.30) mg/dL Est GFR ( Amer) (> 60) Est GFR (Non-Af Amer) (> 60) BUN/Creatinine Ratio (6-26) Glucose (70-105) mg/dL POC Glucose 302 H (70-99) mg/dL Est Mean Plasma Glucose mg/dl Hemoglobin A1c ( - 5.6) % Calculated Osmolality (280-300) Calcium (8.6-10.3) mg/dL Beta-Hydroxybutyric Acd (0.02-0.27) mmol/L TSH (0.340-5.600) mcIU/mL Urine Color Yellow (Yellow) Urine Clarity Clear (Clear) Urine pH 6.0 (5.0-8.0) pH Units Ur Specific [place] > 1.030 H (1.010-1.025) Urine Protein Negative (Neg-Trace) mg/dL Urine Glucose (UA) >=1000 H (Normal) mg/dL Urine Ketones 80 H (Negative) mg/dL Urine Blood Negative (Negative) Urine Nitrite Negative (Negative) Urine Bilirubin Negative (Negative) Urine Urobilinogen Normal (Normal) mg/dL Ur Leukocyte Esterase Negative (Negative) Salicylates (15.0-30.0) mg/dL Urine Opiates Screen Negative (Bphcak=930) ng/mL Acetaminophen (10-20) mcg/mL Ur Barbiturates Screen Negative (Lzrcok=362) ng/mL Ur Phencyclidine Scrn Negative (Cutoff=25) ng/mL Ur Amphetamines Screen Positive H (Zkzwbj=1746) ng/mL U Benzodiazepines Scrn Negative (Xyfpqb=314) ng/mL Urine Cocaine Screen Negative (Cutoff= 300) ng/mL U Marijuana (THC) Screen Negative (Cutoff = 50) ng/mL Ur Drug Screen Interp See Below Ethyl Alcohol (Less than 10) mg/dL 02/03/19 02/03/19 02/03/19 Range/Units 03:23 03:32 04:08 WBC (4.3-11.1) K/mcL RBC (4.19-5.50) M/mcL Hgb (12.9-16.9) g/dL Hct (37.5-50.1) % MCV (83.0-100.0) fL MCH (28.0-33.3) pg MCHC (31.6-35.5) g/dL RDW (11.5-14.5) % Plt Count (140-400) K/mcL MPV (9.4-12.4) fL Immature Gran % (0-4) % Seg Neutrophils % % Lymphocytes % % Monocytes % % Eosinophils % % Basophils % % Neutrophils # (1.6-8.9) K/mcL Lymphocytes # (0.6-4.6) K/mcL Monocytes # (0.0-1.3) K/mcL Eosinophils # (0.0-0.6) K/mcL Basophils # (0.0-0.2) K/mcL VBG pH 7.51 H (7.32-7.42) pH Units VBG pCO2 26 L (41-51) mmHg VBG pO2 192 H (25-50) mmHg VBG HCO3 21 (21-27) mEq/L Sodium (136-145) mEq/L Potassium (3.5-5.1) mEq/L Chloride (98-107) mEq/L Carbon Dioxide (23-29) mEq/L BUN (6-20) mg/dL Creatinine (0.70-1.30) mg/dL Est GFR ( Amer) (> 60) Est GFR (Non-Af Amer) (> 60) BUN/Creatinine Ratio (6-26) Glucose (70-105) mg/dL POC Glucose 244 H (70-99) mg/dL Est Mean Plasma Glucose mg/dl Hemoglobin A1c ( - 5.6) % Calculated Osmolality (280-300) Calcium (8.6-10.3) mg/dL Beta-Hydroxybutyric Acd > 2.00 H (0.02-0.27) mmol/L TSH (0.340-5.600) mcIU/mL Urine Color (Yellow) Urine Clarity (Clear) Urine pH (5.0-8.0) pH Units Ur Specific [place] (1.010-1.025) Urine Protein (Neg-Trace) mg/dL Urine Glucose (UA) (Normal) mg/dL Urine Ketones (Negative) mg/dL Urine Blood (Negative) Urine Nitrite (Negative) Urine Bilirubin (Negative) Urine Urobilinogen (Normal) mg/dL Ur Leukocyte Esterase (Negative) Salicylates (15.0-30.0) mg/dL Urine Opiates Screen (Sjsqud=540) ng/mL Acetaminophen (10-20) mcg/mL Ur Barbiturates Screen (Kzeird=005) ng/mL Ur Phencyclidine Scrn (Cutoff=25) ng/mL Ur Amphetamines Screen (Oheluj=4702) ng/mL U Benzodiazepines Scrn (Gkvfns=145) ng/mL Urine Cocaine Screen (Cutoff= 300) ng/mL U Marijuana (THC) Screen (Cutoff = 50) ng/mL Ur Drug Screen Interp Ethyl Alcohol (Less than 10) mg/dL 12/31/18 12/31/18 12/31/18 Range/Units 08:07 10:21 13:00 WBC (4.3-11.1) K/mcL RBC (4.19-5.50) M/mcL Hgb (12.9-16.9) g/dL Hct (37.5-50.1) % MCV (83.0-100.0) fL MCH (28.0-33.3) pg MCHC (31.6-35.5) g/dL RDW (11.5-14.5) % Plt Count (140-400) K/mcL MPV (9.4-12.4) fL Immature Gran % (0-4) % Seg Neutrophils % % Lymphocytes % % Monocytes % % Eosinophils % % Basophils % % Neutrophils # (1.6-8.9) K/mcL Lymphocytes # (0.6-4.6) K/mcL Monocytes # (0.0-1.3) K/mcL Eosinophils # (0.0-0.6) K/mcL Basophils # (0.0-0.2) K/mcL VBG pH (7.32-7.42) pH Units VBG pCO2 (41-51) mmHg VBG pO2 (25-50) mmHg VBG HCO3 (21-27) mEq/L Sodium 139 (136-145) mEq/L Potassium 3.6 (3.5-5.1) mEq/L Chloride 108 H (98-107) mEq/L Carbon Dioxide 26 (23-29) mEq/L BUN 10 (6-20) mg/dL Creatinine 0.51 L (0.70-1.30) mg/dL Est GFR ( Amer) > 60 (> 60) Est GFR (Non-Af Amer) > 60 (> 60) BUN/Creatinine Ratio 20 (6-26) Glucose 38 L* (70-105) mg/dL POC Glucose 242 H 220 H (70-99) mg/dL Est Mean Plasma Glucose mg/dl Hemoglobin A1c ( - 5.6) % Calculated Osmolality 284 (280-300) Calcium 8.8 (8.6-10.3) mg/dL Beta-Hydroxybutyric Acd (0.02-0.27) mmol/L TSH (0.340-5.600) mcIU/mL Urine Color (Yellow) Urine Clarity (Clear) Urine pH (5.0-8.0) pH Units Ur Specific [place] (1.010-1.025) Urine Protein (Neg-Trace) mg/dL Urine Glucose (UA) (Normal) mg/dL Urine Ketones (Negative) mg/dL Urine Blood (Negative) Urine Nitrite (Negative) Urine Bilirubin (Negative) Urine Urobilinogen (Normal) mg/dL Ur Leukocyte Esterase (Negative) Salicylates (15.0-30.0) mg/dL Urine Opiates Screen (Pzngud=223) ng/mL Acetaminophen (10-20) mcg/mL Ur Barbiturates Screen (Bequpw=691) ng/mL Ur Phencyclidine Scrn (Cutoff=25) ng/mL Ur Amphetamines Screen (Nwwnbe=9431) ng/mL U Benzodiazepines Scrn (Djcqsg=426) ng/mL Urine Cocaine Screen (Cutoff= 300) ng/mL U Marijuana (THC) Screen (Cutoff = 50) ng/mL Ur Drug Screen Interp Ethyl Alcohol (Less than 10) mg/dL
[2018-12-31] MEDS: Venlafaxine XR (24 HR) 150 MG CAP.ER.24H PO SCH (18:56)
[2018-12-31] MEDS: 0.9 % Sodium Chloride w KCl 20 MEQ/1,000 ML MLS IVC SCH ×2 (18:56→23:33)
[2018-12-31] MEDS: Insulin LISPRO 300 UNITS/3 ML VIAL SQ SCH (18:57)
[2018-12-31] MEDS: Gabapentin 400 MG CAPSULE PO SCH ×3 (18:57→21:42)
[2018-12-31] MEDS ORDERED: Insulin DETEMIR 100 UNIT/ML X5UNITS SQ SCH (21:00)
[2018-12-31] MEDS ORDERED: diazePAM 10 MG/2 ML SYRINGE IVP ONE (22:06)
[2018-12-31 22:23] LABS: BUN/Creatinine Ratio 17 (6-26); Blood Urea Nitrogen 16 mg/dL (6-20); Calcium 8.4 mg/dL (8.6-10.3); Carbon Dioxide 17 mEq/L (23-29); Chloride 97 mEq/L (98-107); Glucose 715 mg/dL (70-105); Osmolality,Calculated 301 (280-300); Potassium 5.1 mEq/L (3.5-5.1); Sodium 128 mEq/L (136-145); eGFR For Non-African Americans > 60 (> 60)
[2018-12-31] MEDS: *HR* LORazepam 2 MG/ML VIAL IVP PRN (23:31)
--- NOTE | 2018-12-31 23:34 | Event Note ---
Date of Encounter: 12/31/18 Time of Encounter: 21:05 Notified by patient's nurse DARCY Ann for the need for stat labs due to patient's glucose not reading on glucometer. Nurse concern patient may be back in DKA. Alerted at 21:48 labs were drawn, patient had not had his psych meds and was currently withdrawing from his drug use. Nurse also reported patient was becoming belligerent and aggressive. CIWA scale ordered as well as a one- time dose of Valium 5 mg IVP. Alerted at 22:46 that patient had a critical glucose of 715 and anion gap was now 14. Sodium dropped from 139 to 128. Nurse instructed to begin DKA protocol with insulin drip. Nurse reported patient was not in DKA when arriving on unit at approximately 19:00. Alerted by nurse at 22:53 that patient was now sleeping and agitation was under control. Vital signs at the time: HR 105, BP 143/91, SPO2 96% on room air, RR 16. SQ heparin ordered for DVT prophylaxis. Nurse instructed to continue monitoring pt. closely and notify me immediately of any adverse changes.
[2019-01-01] MEDS: 0.9 % Sodium Chloride w KCl 20 MEQ/1,000 ML MLS IVC SCH (01:41)
[2019-01-01] MEDS ORDERED: D5% in 0.45% NACL w KCl 20 MEQ/1,000 ML MLS IVC ONE (04:01)
[2019-01-01] MEDS ORDERED: D5% in 0.45% NACL w KCl 20 MEQ/1,000 ML MLS IVC SCH (04:15)
[2019-01-01 04:54] LABS: BUN/Creatinine Ratio 22 (6-26); Blood Urea Nitrogen 11 mg/dL (6-20); Calcium 8.1 mg/dL (8.6-10.3); Carbon Dioxide 23 mEq/L (23-29); Chloride 109 mEq/L (98-107); Glucose 202 mg/dL (70-105); Magnesium 1.9 mg/dL (1.6-2.6); Osmolality,Calculated 287 (280-300); Phosphorous 3.8 mg/dL (2.7-4.5); Sodium 136 mEq/L (136-145); eGFR For Non-African Americans > 60 (> 60)
[2019-01-01] MEDS: *HR* Heparin 5,000 UNIT/ML VIAL SQ SCH ×2 (05:59→18:22)
[2019-01-01] MEDS ORDERED: Insulin NPH/REG 70/30 100 UNIT/ML (x5UNIT) SQ SCH ×2 (07:30→16:30)
[2019-01-01] MEDS: Venlafaxine XR (24 HR) 150 MG CAP.ER.24H PO SCH (08:16)
[2019-01-01] MEDS: Gabapentin 400 MG CAPSULE PO SCH ×2 (08:16→14:36)
[2019-01-01] MEDS: Insulin Human Regular 100 UNIT in 0.9 % Sodium Chloride 100 ML IVC SCH (08:16)
[2019-01-01] MEDS: Insulin LISPRO 300 UNITS/3 ML VIAL SQ SCH ×3 (08:25→17:02)
[2019-01-01] MEDS: *HR* LORazepam 2 MG/ML VIAL IVP PRN (08:40)
--- NOTE | 2019-01-01 13:53 | Consult Note ---
Date of Encounter: 01/01/19 Time of Encounter: 13:51 Assessment & Recommendation (1) Schizoaffective disorder Current visit: Yes Status: Acute Assessment & Recommendation: Patient has previously been on Seroquel and done well with this. I would recommend slowly restarting this with an additional dose of 100 mg twice a day. He has previously taken up to 300 mg at night however given the fact that he has had episodes of irritability during the day I would recommend that twice a day scheduled at this time. Currently he does not meet inpatient criteria as he is denying suicidal or homicidal ideations or plans or auditory or visual hallucinations however if his presentation changes please let us know and we can reevaluate the need for hospitalization. He has previously been at the [facility], 20 mg a [facility], which seems to have met his needs well. He does acknowledge that he has significant drug use issues and is interested in being linked with rehabilitation for this an inpatient 30 day facility if a vailable. Qualifiers: Schizoaffective disorder type: bipolar Qualified Code(s): F25.0 - Schizoaffective disorder, bipolar type History of Present Illness Patient: new to practice Reason for consult: mental status History of present illness: Mr. Lemus is a 33 year old male who was admitted for DKA. He has had confusion and agitation in the emergency room and required when necessary medications. He was unable to be interviewed yesterday. Today he has been off and on sedated though he did get up for lunch according to nursing staff. He was able to talk with me some when I went to evaluate him he denied suicidal ideation he reported that his mood was "off and on" she denied auditory or visual hallucinations. He was future oriented. CC: Chandana Abbasi MD Past Med Surg Social Fam HX - Past Medical History Medical history: diabetes, hepatitis, seizures, other - Past Psychiatric History Psychiatric history: Reports: bipolar, depression, previous psychiatric hospitalization Past psychiatric history details: He has had several prior hospitalizations. He has frequent medical hospitalizations for poorly controlled diabetes. He has had psychiatric hospitalizations for schizoaffective disorder. He has been hospitalized both at [facility] and at the [facility] in the past. He denies prior suicide attempts. Family psychiatric history: No Family History of Suicide: Unknown - Past Surgical History Surgical History: orthopedic, other - Social History Smoking Status: Current every day smoker Smokeless Tobacco Status: No Alcohol use: rarely Drug use: methamphetamine, IV Drug Use Occupational status: unemployed Current living situation: Homeless Activity Level: Independent ambulation Recent Out of Country Travel Within the Last 8 Weeks: No Exposure or Possible Exposure to Illness During Travel: No - Family History Father Family Member Ethnicity: Non- Living Status: Hx Family Cardiac Disorders: Yes ([place]) Hx Family Endocrine Disorder: Yes ([place]) Mother Family Member Ethnicity: Non- Living Status: Still Living Sister Family Member Ethnicity: Non- Living Status: Still Living Medications & Allergies Gabapentin [Neurontin] 800 mg PO TID 14 Days #42 tablet 06/08/18 [Rx] Venlafaxine XR (24 HR) [Effexor Xr] 150 mg PO DAILY 14 Days #14 cap.er.24h 06/08/18 [Rx] Phenytoin ER [Dilantin ER] 100 mg PO TID 14 Days #42 capsule 07/03/18 [Rx] Insulin NPH/REG 70/30 (HUMAN) [Humulin 70/30 Vial] 15 unit SQ QPM 11/14/18 [History] Insulin NPH/REG 70/30 (HUMAN) [Humulin 70/30 Vial] 22 unit SQ QAM 11/14/18 [History] Insulin Regular Human [Humulin R] 2 - 10 units SQ QID 11/14/18 [History] Allergy/AdvReac Type Severity Reaction Status Date / Time insulin glargine Allergy Blister Verified 07/02/18 22:17 [From Lantus] diphenhydramine AdvReac Intermediate See Verified 07/02/18 22:17 [From Benadryl] Comments Review of Systems Neurological: Reports: confusion Psychiatric: Reports: confusion, irritability, mood swings Psychiatry Exam - Constitutional Vitals: Temp Pulse Resp BP Pulse Ox 97.1 F L 78 16 146/95 97 01/01/19 11:13 01/01/19 11:13 01/01/19 11:13 01/01/19 11:13 01/01/19 11:13 General appearance: unkempt, disheveled - Musculoskeletal Gait: slow Station: stooped Strength & Tone: mild weakness - Psychiatric Patient Orientation: Yes Person Level of alertness: Sedated Behavior: distractible Psychomotor activity: Slowed Eye Contact: Minimal Contact Mood Description: Other Patient description of mood: "Fine" Affect description: other (Somewhat sedated) Speech Volume: Soft/Quiet Speech pattern: slowed Language & Vocabulary: consistent with education Thought Process: Disorganized Thought Content: No Suicidal ideation, No Homicidal ideation, No Overt delusions Perceptual Disturbances: No Auditory hallucinations, No Visual hallucinations Attention Span Ability: Unable to Focus, Unable to Sustain Attention Memory Description: Recent Impaired, Remote Impaired Patient Reliability: Questionable Historian Fund of knowledge: Yes average Intelligence Estimate: Average Judgment: Limited Insight: Minimal Results - Labs Labs: Laboratory Last Values WBC 7.8 K/mcL (4.3-11.1) 12/31/18 00:44 RBC 4.12 M/mcL (4.19-5.50) L 12/31/18 00:44 Hgb 11.7 g/dL (12.9-16.9) L 12/31/18 00:44 Hct 35.0 % (37.5-50.1) L 12/31/18 00:44 MCV 85.0 fL (83.0-100.0) 12/31/18 00:44 MCH 28.4 pg (28.0-33.3) 12/31/18 00:44 MCHC 33.4 g/dL (31.6-35.5) 12/31/18 00:44 RDW 14.6 % (11.5-14.5) H 12/31/18 00:44 Plt Count 195 K/mcL (140-400) 12/31/18 00:44 MPV 9.4 fL (9.4-12.4) 12/31/18 00:44 Immature Gran % 0.3 % (0-4) 12/31/18 00:44 Seg Neutrophils % 73.5 % 12/31/18 00:44 Lymphocytes % 14.2 % 12/31/18 00:44 Monocytes % 11.0 % 12/31/18 00:44 Eosinophils % 0.5 % 12/31/18 00:44 Basophils % 0.5 % 12/31/18 00:44 Neutrophils # 5.7 K/mcL (1.6-8.9) 12/31/18 00:44 Lymphocytes # 1.1 K/mcL (0.6-4.6) 12/31/18 00:44 Monocytes # 0.9 K/mcL (0.0-1.3) 12/31/18 00:44 Eosinophils # 0.0 K/mcL (0.0-0.6) 12/31/18 00:44 Basophils # 0.0 K/mcL (0.0-0.2) 12/31/18 00:44 VBG pH 7.51 pH Units (7.32-7.42) H 12/31/18 03:32 VBG pCO2 26 mmHg (41-51) L 12/31/18 03:32 VBG pO2 192 mmHg (25-50) H 12/31/18 03:32 VBG HCO3 21 mEq/L (21-27) 12/31/18 03:32 Sodium 136 mEq/L (136-145) 01/01/19 04:04 Potassium 5.0 mEq/L (3.5-5.1) 01/01/19 04:04 Chloride 109 mEq/L (98-107) H 01/01/19 04:04 Carbon Dioxide 23 mEq/L (23-29) 01/01/19 04:04 BUN 11 mg/dL (6-20) 01/01/19 04:04 Creatinine 0.51 mg/dL (0.70-1.30) L 01/01/19 04:04 Est GFR ( Amer) > 60 (> 60) 01/01/19 04:04 Est GFR (Non-Af Amer) > 60 (> 60) 01/01/19 04:04 BUN/Creatinine Ratio 22 (6-26) 01/01/19 04:04 Glucose 202 mg/dL (70-105) H 01/01/19 04:04 POC Glucose 234 mg/dL (70-99) H 01/01/19 02:29 Est Mean Plasma Glucose 237 mg/dl 12/31/18 00:44 Hemoglobin A1c 9.9 % (-5.6) H 12/31/18 00:44 Calculated Osmolality 287 (280-300) 01/01/19 04:04 Calcium 8.1 mg/dL (8.6-10.3) L 01/01/19 04:04 Phosphorus 3.8 mg/dL (2.7-4.5) 01/01/19 04:04 Magnesium 1.9 mg/dL (1.6-2.6) 01/01/19 04:04 Beta-Hydroxybutyric Acd > 2.00 mmol/L (0.02-0.27) H 12/31/18 03:23 TSH 1.966 mcIU/mL (0.340-5.600) 12/31/18 00:44 Urine Color Yellow (Yellow) 12/31/18 01:00 Urine Clarity Clear (Clear) 12/31/18 01:00 Urine pH 6.0 pH Units (5.0-8.0) 12/31/18 01:00 Ur Specific [place] > 1.030 (1.010-1.025) H 12/31/18 01:00 Urine Protein Negative mg/dL (Neg-Trace) 12/31/18 01:00 Urine Glucose (UA) >=1000 mg/dL (Normal) H 12/31/18 01:00 Urine Ketones 80 mg/dL (Negative) H 12/31/18 01:00 Urine Blood Negative (Negative) 12/31/18 01:00 Urine Nitrite Negative (Negative) 12/31/18 01:00 Urine Bilirubin Negative (Negative) 12/31/18 01:00 Urine Urobilinogen Normal mg/dL (Normal) 12/31/18 01:00 Ur Leukocyte Esterase Negative (Negative) 12/31/18 01:00 Salicylates < 2.5 mg/dL (15.0-30.0) L 12/31/18 00:44 Urine Opiates Screen Negative ng/mL (Lblgwu=491) 12/31/18 01:00 Acetaminophen < 10 mcg/mL (10-20) L 12/31/18 00:44 Ur Barbiturates Screen Negative ng/mL (Udbogm=052) 12/31/18 01:00 Ur Phencyclidine Scrn Negative ng/mL (Cutoff=25) 12/31/18 01:00 Ur Amphetamines Screen Positive ng/mL (Oosrbr=8556) H 12/31/18 01:00 U Benzodiazepines Scrn Negative ng/mL (Cgpdsv=474) 12/31/18 01:00 Urine Cocaine Screen Negative ng/mL (Cutoff= 300) 12/31/18 01:00 U Marijuana (THC) Screen Negative ng/mL (Cutoff = 50) 12/31/18 01:00 Ur Drug Screen Interp See Below 12/31/18 01:00 Ethyl Alcohol < 10 mg/dL (Less than 10) 12/31/18 00:44 Specimen Rejected Clotted 01/01/19 04:04 Consult Discharge Plan - Plan Referrals: Lenin Ortega DO [Resident] - 01/08/19 3:20 pm
[2019-01-01 15:53] VITALS: BP 157/106
--- NOTE | 2019-01-01 17:06 | Discharge Summary ---
- NOTES TO OUTPATIENT PROVIDER Notes to Outpatient Provider: Patient with history of type 1 diabetes complicated by poor compliance, schizoaffective disorder, substance abuse, was admitted for DKA due to non-compliance. Clinically improved with IV insulin, IVF, and was recommended to be transferred for drug rehab but declined. Per psy ch recs, restarted on PO seroquel 100mg BID. High risk for readmission due to substance abuse and poor insight to his disease. Date of Encounter: 01/01/19 Time of Encounter: 16:45 - Discharge Diagnosis (1) Substance abuse Priority: Secondary Status: Chronic (2) DKA (diabetic ketoacidoses) Priority: Primary Status: Acute Qualifiers: Diabetes mellitus type: type 1 Diabetes mellitus complication detail: without coma Qualified Code(s): E10.10 - Type 1 diabetes mellitus with ketoacidosis without coma (3) Agitation Priority: Secondary Status: Acute (4) DVT prophylaxis Priority: Secondary Status: Acute Hospital course: Mr. Lemus is a 33 year old male with history of type 1 diabetes complicated by poor compliance, schizoaffective disorder, substance abuse, was admitted for DKA due to non-compliance. Clinically improved with IV insulin, IVF, and was recommended to be transferred for drug rehab but declined. Per psych recs, restarted on PO seroquel 100mg BID. Discharge discussed with: patient, nurse, social work - Time Spent with Patient Total time spent providing and/or coordinating discharge services: 31 mins - Discharge Medications Prescriptions: Quetiapine Fumarate [Seroquel] 100 mg PO BID 30 Days #60 tablet Home Medications: Gabapentin [Neurontin] 800 mg PO TID 14 Days #42 tablet 06/08/18 [Rx] Venlafaxine XR (24 HR) [Effexor Xr] 150 mg PO DAILY 14 Days #14 cap.er.24h 06/08/18 [Rx] Phenytoin ER [Dilantin ER] 100 mg PO TID 14 Days #42 capsule 07/03/18 [Rx] Insulin NPH/REG 70/30 (HUMAN) [Humulin 70/30 Vial] 15 unit SQ QPM 11/14/18 [History] Insulin NPH/REG 70/30 (HUMAN) [Humulin 70/30 Vial] 22 unit SQ QAM 11/14/18 [History] Insulin Regular Human [Humulin R] 2 - 10 units SQ QID 11/14/18 [History] Quetiapine Fumarate [Seroquel] 100 mg PO BID 30 Days #60 tablet 01/01/19 [Rx] Allergies/Adverse Reactions: Allergy/AdvReac Type Severity Reaction Status Date / Time insulin glargine Allergy Blister Verified 07/02/18 22:17 [From Lantus] diphenhydramine AdvReac Intermediate See Verified 07/02/18 22:17 [From Benadryl] Comments Date of admission: 12/31/18 17:39 Primary care physician: PCP NONE Consults: 12/31/18 07:27 Consult to Psychiatry [CONS] Routine Consulting Provider: Psychiatry Elana Reason consult: Altered mental status Call Completed: Yes 12/31/18 21:57 Consult to Rail Bender [CONS] Routine Reason for SW Consult: Assess patient for rehabiliation for post-discharge planning. Pt. is an active drug user. - Constitutional Vitals: Temp Pulse Resp BP Pulse Ox 98.1 F 101 17 157/106 96 01/01/19 15:50 01/01/19 15:50 01/01/19 15:50 01/01/19 15:50 01/01/19 15:50 Exam: General: Alert and oriented, not in acute distress. Cardiovascular:Normal S1 & S2, No JVD. Pulse regular. Lungs: clear to auscultation, no wheezes/rales Abdomen:Soft, non-tender, no rigidity. Extremities:No deformity or swelling - Patient Status Disposition: Home, Self-Care Condition: Fair Functional capacity at discharge: independent ambulation Overall status at discharge: patient is progressing back to baseline - Discharge Instructions Instructions: Acute Kidney Injury (DC), Diabetes Mellitus Type 1 in Adults (DC) Follow Up With: Lenin Ortega DO [Resident] - 01/08/19 3:20 pm Additional Instructions: Started on PO Seroquel 100mg BID recommended for drug rehab but declined. - Diet and Activity Activity: resume usual activities as tolerated Diet: diabetic diet
[2019-01-01] MEDS ORDERED: Insulin NPH/REG 70/30 100 UNIT/ML (x5UNIT) SQ ONE (18:10)
[2019-01-02] MEDS ORDERED: Insulin NPH/REG 70/30 100 UNIT/ML (x5UNIT) SQ SCH (07:30)
--- NOTE | 2019-01-03 14:15 | Electrocardiograph Report ---
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
== END 2019-01-01 19:15 | disposition home or self-care (01) ==
LOC: 3BNU 22:15 → EMEROOARM 22:15 → SUATTDRO 12-31 17:39 → INTOOBSV 12-31 17:39 → 2NNU 12-31 17:39
PROVIDERS: ADMIT Student in an Organized Health Care Education/Training Program; ATTEND Internal Medicine

== ENCOUNTER 2019-05-20 15:51 | Inpatient (IN) ==
[2019-05-20] MEDS ORDERED: 0.9 % Sodium Chloride 1,000 ML IVC ONE ×2 (15:58→17:53)
[2019-05-20] MEDS ORDERED: Ondansetron 4 MG/2 ML VIAL IVP ONE (15:58)
[2019-05-20] MEDS ORDERED: *HR* Dextrose 50 % in Water (Syg) 50 ML SYRINGE IVP ONE ×2 (15:58→20:50)
[2019-05-20 16:35] LABS: Basophils % 0.5 %; Eosinophils # 0.3 K/mcL (0.0-0.6); Hematocrit 34.4 % (37.5-50.1); Hemoglobin 11.6 g/dL (12.9-16.9); Immature Granulocytes % 0.3 % (0-4); Lymphocytes # 1.8 K/mcL (0.6-4.6); Mean Corpuscular HGB Conc 33.7 g/dL (31.6-35.5); Mean Corpuscular Hemoglobin 28.7 pg (28.0-33.3); Mean Corpuscular Volume 85.1 fL (83.0-100.0); Mean Platelet Volume 9.2 fL (9.4-12.4); Monocytes # 0.9 K/mcL (0.0-1.3); Monocytes % 13.7 %; Neutrophils # 3.3 K/mcL (1.6-8.9); Platelet Count 247 K/mcL (140-400); Red Blood Count 4.04 M/mcL (4.19-5.50); Red Cell Distribution Width 13.1 % (11.5-14.5); Segmented Neutrophils % 52.5 %; White Blood Count 6.3 K/mcL (4.3-11.1)
--- NOTE | 2019-05-20 16:55 | Emergency Department Note ---
Disposition Clinical Impression: Methamphetamine abuse, Elevated CK, Hypoglycemia Disposition: Admitted As Inpatient Condition: Fair Time of Disposition: 18:41 General Adult HPI - General Chief complaint: ED Altered Mental Status Stated complaint: HYPOGLYCEMIA Time Seen by Provider: 05/20/19 15:57 Source: patient, EMS Limitations: no limitations - History of Present Illness Pain Scale: 0 - Related Data Home Medications Medication Instructions Recorded Confirmed Venlafaxine HCl [Effexor Xr] 225 mg PO DAILY 01/26/19 03/30/19 Insulin ASPART [NovoLOG] 0 unit SQ TIDWM PRN 03/30/19 03/30/19 Insulin NPH Hum/Reg Insulin Hm 33 unit SQ QAM 03/30/19 03/30/19 [Novolin 70-30 100 Unit/ml Vial] Quetiapine Fumarate [Quetiapine 400 mg PO DAILY 03/30/19 03/30/19 Fumarate ER] Phenytoin ER [Dilantin ER] 100 mg PO TID 05/20/19 05/20/19 Previous Rx's Medication Instructions Recorded NALOXONE 4 MG Nasal [place] [Narcan] 4 mg NS AD #2 sprays 01/04/19 Cyclobenzaprine [Flexeril] 10 mg PO HS #30 tablet 03/26/19 Gabapentin 800 mg PO QID #120 tablet 03/26/19 Allergies Allergy/AdvReac Type Severity Reaction Status Date / Time insulin glargine Allergy Blister Verified 03/23/19 23:42 [From Lantus] diphenhydramine AdvReac Intermediate See Verified 03/23/19 23:42 [From Benadryl] Comments Past Medical History - Past Medical History Medical history: Reports: diabetes, hepatitis, hyperlipidemia, hypertension, seizures, other Surgical history: Reports: orthopedic, other Psychiatric history: Reports: bipolar, prior suicide attempt, previous psychiatric hospitalization - Social History Smoking Status: Current every day smoker Smokeless Tobacco Status: No Alcohol use: Reports: rarely Drug use: Reports: methamphetamine, IV Drug Use, prescription drug abuse Physical Exam - General Limitations: no limitations General appearance: alert Course Vital Signs Temperature 97.6 F 05/20/19 15:58 Pulse Rate 97 05/20/19 15:58 Respiratory Rate 18 05/20/19 15:58 Blood Pressure 141/84 05/20/19 15:58 O2 Sat by Pulse Oximetry 98 05/20/19 15:58 Temperature 97.6 F 05/20/19 15:58 Pulse Rate 97 05/20/19 15:58 Respiratory Rate 18 05/20/19 15:58 Blood Pressure 141/84 05/20/19 15:58 O2 Sat by Pulse Oximetry 98 05/20/19 15:58 Oxygen Delivery Oxygen Delivery Room Air Medical Decision Making - Lab Data Result diagrams: 05/20/19 16:09 05/20/19 16:09 Lab Results 05/20/19 05/20/19 Range/Units 16:09 16:09 WBC 6.3 (4.3-11.1) K/mcL RBC 4.04 L (4.19-5.50) M/mcL Hgb 11.6 L (12.9-16.9) g/dL Hct 34.4 L (37.5-50.1) % MCV 85.1 (83.0-100.0) fL MCH 28.7 (28.0-33.3) pg MCHC 33.7 (31.6-35.5) g/dL RDW 13.1 (11.5-14.5) % Plt Count 247 (140-400) K/mcL MPV 9.2 L (9.4-12.4) fL Immature Gran % 0.3 (0-4) % Seg Neutrophils % 52.5 % Lymphocytes % 29.0 % Monocytes % 13.7 % Eosinophils % 4.0 % Basophils % 0.5 % Neutrophils # 3.3 (1.6-8.9) K/mcL Lymphocytes # 1.8 (0.6-4.6) K/mcL Monocytes # 0.9 (0.0-1.3) K/mcL Eosinophils # 0.3 (0.0-0.6) K/mcL Basophils # 0.0 (0.0-0.2) K/mcL Sodium 137 (136-145) mEq/L Potassium 3.2 L (3.5-5.1) mEq/L Chloride 100 (98-107) mEq/L Carbon Dioxide 28 (23-29) mEq/L BUN 16 (6-20) mg/dL Creatinine 0.73 (0.70-1.30) mg/dL Est GFR ( Amer) > 60 (> 60) Est GFR (Non-Af Amer) > 60 (> 60) BUN/Creatinine Ratio 22 (6-26) Glucose 79 (70-105) mg/dL Calculated Osmolality 284 (280-300) Calcium 9.8 (8.6-10.3) mg/dL Creatine Kinase 4255 H (30-223) Units/L Valproic Acid < 4 L (50-100) mcg/mL Attestation Statement - Attestation Attestation: I, Rolo Brown DO, examined this patient [id number] and my medical decision-making was reviewed with Dr. Stephanie Jules , Resident Physician. I agree with the documented findings, disposition and treatment plan as described except to the extent set forth below. I personally supervised and was present for the tovar/critical portions of the procedures completed by the resident documented below. Please see my progress notes for details. 33-year-old male presents emergency room via EMS for evaluation of hypoglycemia. Patient is a insulin-dependent diabetic who injects insulin daily. He also uses methamphetamine. He denies any recent use outside a several days ago. Currently denying fevers or chills. He has not had any nausea vomiting or diarrhea. No headache no vision change. He does take Depakote at baseline. This will level will be checked as well. Vital signs reviewed and are stable. Patient is otherwise clinically no distress. Patient was screening labs completed this time secondary to his noncompliance with medications as well as his history of methamphetamine use. Patient will be provided with fluids 1 single amp of dextrose as well as having CBC chemistry urinalysis if able to be collected as well as CPK. Fluids will be started for symptomatic control. Disposition pending workup and evaluation. Physical exam is otherwise unremark able. Head is atraumatic. Mucous membranes are dry. Oropharynx is patent. Trachea is midline. Abdomen is soft no point tenderness guarding rigidity or peritoneal symptoms at this time. Patient has no visible signs of track grewal or abnormality on the symptoms at this point. Patient will be monitored here in the emergency department until treatment course has been established. See detailed documentation of the physical exam, medical intervention, medical decision-making and disposition in the resident physician's note. No critical care pad the patient's treatment course at this time. 1800 Patient CPKs greater than 3000 of this time. Fluid resuscitation has been started with D5 secondary to the patient's hypoglycemic events. No other infectious etiology noted at this point his electrolytes are all within normal limits except for his potassium. This will be repleted. The hospitalist has been paged for the admission process to be established. Patient is otherwise stable and informed of recommendation for admission secondary to what appears to be rhabdomyolysis from methamphetamine use and hypoglycemia. 1835 Patient was discussed with the hospitalist Dr. terrazas reviewed the case. No other recommendations or concerns at this time. Patient will be admitted for elevated CPK and concern for rhabdomyolysis. Fluid resuscitation has been started and glucose has been evaluated patient will be monitored here in the emergency department until the admission process is completed
--- NOTE | 2019-05-20 17:01 | Emergency Department Note ---
Disposition Clinical Impression: Methamphetamine abuse, Elevated CK, Hypoglycemia Disposition: Admitted As Inpatient Condition: Fair Referrals: NONE,PCP [Primary Care Provider] - Time of Disposition: 18:23 General Adult HPI - General Chief complaint: ED Altered Mental Status Stated complaint: HYPOGLYCEMIA Time Seen by Provider: 05/20/19 15:57 Source: patient, EMS Limitations: no limitations Nursing Notes Reviewed: Yes Vital Signs Reviewed: Yes - History of Present Illness HPI Narrative: Patient is a 33-year-old male who is presenting with altered mental status and hypoglycemia. Patient with known history of insulin dependent diabetes mellitus type 1. He was brought in via EMS with a glucose in the 30s, he was given glucagon which brought his glucose to 76 on arrival. Patient does have known history of IV drug use including methamphetamines, he also uses Depakote. On arrival, patient is slightly altered in mentation, will not answer questions, well elevated to perform a physical exam however will not answer further questions. He will respond and perform to commands. Pain Scale: 0 - Related Data Home Medications Medication Instructions Recorded Confirmed Venlafaxine HCl [Effexor Xr] 225 mg PO DAILY 01/26/19 05/20/19 Insulin ASPART [NovoLOG] 0 unit SQ TIDWM PRN 03/30/19 05/20/19 Insulin NPH Hum/Reg Insulin Hm 33 unit SQ QAM 03/30/19 05/20/19 [Novolin 70-30 100 Unit/ml Vial] Quetiapine Fumarate [Quetiapine 400 mg PO DAILY 03/30/19 05/20/19 Fumarate ER] Phenytoin ER [Dilantin ER] 100 mg PO TID 05/20/19 05/20/19 Previous Rx's Medication Instructions Recorded NALOXONE 4 MG Nasal [place] [Narcan] 4 mg NS AD #2 sprays 01/04/19 Cyclobenzaprine [Flexeril] 10 mg PO HS #30 tablet 03/26/19 Gabapentin 800 mg PO QID #120 tablet 03/26/19 Allergies Allergy/AdvReac Type Severity Reaction Status Date / Time insulin glargine Allergy Blister Verified 03/23/19 23:42 [From Lantus] diphenhydramine AdvReac Intermediate See Verified 03/23/19 23:42 [From Benadryl] Comments All systems ED: reviewed and negative except as stated. Review of Systems: As Per HPI Limitations: ROS unobtainable due to patients medical condition Constitutional: Denies: fever, chills ENT ED: Denies: congestion Cardiovascular: Denies: chest pain, palpitations Respiratory: Denies: cough Gastrointestinal: Denies: abdominal pain Musculoskeletal: Denies: back pain Neurological: Denies: headache Hematological/Lymphatic: Denies: easy bleeding Past Medical History - Past Medical History Medical history: Reports: diabetes, hepatitis, hyperlipidemia, hypertension, seizures, other Surgical history: Reports: orthopedic, other Psychiatric history: Reports: bipolar, prior suicide attempt, previous psychiatric hospitalization - Social History Smoking Status: Current every day smoker Smokeless Tobacco Status: No Alcohol use: Reports: rarely Drug use: Reports: methamphetamine, IV Drug Use, prescription drug abuse Physical Exam - General Limitations: no limitations General appearance: alert, appears intoxicated - Head Head exam: atraumatic, normocephalic, normal inspection - Eye Eye exam: Present: normal appearance, PERRL, EOMI - ENT ENT exam: mucous membranes dry - Neck Neck exam: Present: normal inspection, full ROM, trachea midline - Chest Chest inspection: Present: normal inspection, symmetric chest wall rise - Respiratory Respiratory exam: Present: normal lung sounds bilaterally - Cardiovascular Cardiovascular exam: Present: normal rhythm, tachycardia - Abdominal Exam Abdominal exam: Present: soft, Non-Tender. Absent: tenderness, distention, guarding, rebound, rigidity - Neurological Exam Neurological exam: Present: alert, oriented X3 - Psychiatric Psychiatric exam: Present: anxious - Skin Skin exam: Present: warm. Absent: rash, diaphoresis Course Vital Signs Temperature 97.6 F 05/20/19 15:58 Pulse Rate 97 05/20/19 15:58 Respiratory Rate 18 05/20/19 15:58 Blood Pressure 141/84 05/20/19 15:58 O2 Sat by Pulse Oximetry 98 05/20/19 15:58 Temperature 97.6 F 05/20/19 15:58 Pulse Rate 91 05/20/19 19:01 Respiratory Rate 18 05/20/19 19:01 Blood Pressure 121/77 05/20/19 19:01 O2 Sat by Pulse Oximetry 98 05/20/19 19:01 Oxygen Delivery Oxygen Delivery Room Air Medical Decision Making - MDM Narrative Medical decision making narrative: Patient is a 33-year-old male who presents with hypoglycemia. While here in the ER, on arrival, patient's glucose was 76, has been given an amp of D50 wwith repeat glucose performed showing of 76. Patient has remained somewhat altered on repeat examination he remains afebrile slightly tachycardic. We did give him a liter of fluids. Patient's blood work including CBC and BMP were performed which are relatively unremarkable, potassium is slightly low at 3.2 this has been replaced. CK is elevated, given this concern as well as hypoglycemia, patient to be started on a D5 drip as well as given another liter of fluids. No further infectious etiology is notified at this point in time, blood work otherwise unremarkable. Patient declines any chest pain, shortness of breath, recent nausea vomiting or chills. Suspect patient's altered mentation secondary to methamphetamine use. He does admit to this readily. At this point in time, patient will be admitted for rhabdomyolysis secondary to methamphetamine abuse with hypoglycemia. Patient is currently sleeping in the bed in no acute distress. He will open his eyes to voice and follow commands. - Medical Records Medical records reviewed: Yes I reviewed the patient's medical records. - Lab Data Lab results reviewed: Yes I reviewed the patient's lab results. Result diagrams: 05/20/19 16:09 05/20/19 16:09 Lab Results 05/20/19 05/20/19 Range/Units 16:09 16:09 WBC 6.3 (4.3-11.1) K/mcL RBC 4.04 L (4.19-5.50) M/mcL Hgb 11.6 L (12.9-16.9) g/dL Hct 34.4 L (37.5-50.1) % MCV 85.1 (83.0-100.0) fL MCH 28.7 (28.0-33.3) pg MCHC 33.7 (31.6-35.5) g/dL RDW 13.1 (11.5-14.5) % Plt Count 247 (140-400) K/mcL MPV 9.2 L (9.4-12.4) fL Immature Gran % 0.3 (0-4) % Seg Neutrophils % 52.5 % Lymphocytes % 29.0 % Monocytes % 13.7 % Eosinophils % 4.0 % Basophils % 0.5 % Neutrophils # 3.3 (1.6-8.9) K/mcL Lymphocytes # 1.8 (0.6-4.6) K/mcL Monocytes # 0.9 (0.0-1.3) K/mcL Eosinophils # 0.3 (0.0-0.6) K/mcL Basophils # 0.0 (0.0-0.2) K/mcL Sodium 137 (136-145) mEq/L Potassium 3.2 L (3.5-5.1) mEq/L Chloride 100 (98-107) mEq/L Carbon Dioxide 28 (23-29) mEq/L BUN 16 (6-20) mg/dL Creatinine 0.73 (0.70-1.30) mg/dL Est GFR ( Amer) > 60 (> 60) Est GFR (Non-Af Amer) > 60 (> 60) BUN/Creatinine Ratio 22 (6-26) Glucose 79 (70-105) mg/dL Calculated Osmolality 284 (280-300) Calcium 9.8 (8.6-10.3) mg/dL Creatine Kinase 4255 H (30-223) Units/L Valproic Acid < 4 L (50-100) mcg/mL - Radiology Data Radiology results reviewed: Yes I reviewed the patient's radiology results. Attestation Statement - Attestation Attestation: I, Rolo Brown DO, examined this patient [id number] and my medical decision-making was reviewed with (Dr. Stephanie Jules , Resident Physician. I agree with the documented findings, disposition and treatment plan as described except to the extent set forth below. I personally supervised and was present for the tovar/critical portions of the procedures completed by the resident documented below. Please see my progress notes for details.
[2019-05-20 17:23] LABS: BUN/Creatinine Ratio 22 (6-26); Blood Urea Nitrogen 16 mg/dL (6-20); Calcium 9.8 mg/dL (8.6-10.3); Carbon Dioxide 28 mEq/L (23-29); Chloride 100 mEq/L (98-107); Creatine Kinase 4255 Units/L (30-223); Glucose 79 mg/dL (70-105); Osmolality,Calculated 284 (280-300); Potassium 3.2 mEq/L (3.5-5.1); Sodium 137 mEq/L (136-145); Valproate < 4 mcg/mL (50-100); eGFR For African Americans > 60 (> 60); eGFR For Non-African Americans > 60 (> 60)
[2019-05-20] MEDS ORDERED: D5% in 0.9% NACL 1,000 ML IVC SCH ×2 (18:00→20:54)
[2019-05-20] MEDS ORDERED: OXYCODONE Oral CONC 10 MG/0.5 ML ORAL.SYG SL PRN (19:48)
[2019-05-20] MEDS ORDERED: Naloxone 0.4 MG/ML INJ IVP PRN (19:48)
[2019-05-20] MEDS ORDERED: Ondansetron 4 MG/2 ML VIAL IVP PRN (19:48)
[2019-05-20] MEDS ORDERED: *HR* LORazepam 2 MG/ML VIAL IVP PRN (19:59)
--- NOTE | 2019-05-20 20:15 | Internal Med History&Physical ---
Date of Encounter: 05/20/19 Time of Encounter: 20:00 Internal Medicine - H&P: HPI Chief complaint: Hypoglycemia/AMS History of present illness: Mr. Lemus is a 33 year old male with a past medical history of type 1 diabetes with multiple admissions for DKA, history of suicidal ideation, hypertension, seizures, and drug abuse who was brought into the ED due to hypoglycemia and altered mental status. On my assessment patient was significantly altered refusing to open his eyes with incoherent speech, yet able to follow commands Per EMS report patient was found to have a blood glucose level in the 30s at a public grocery store. He was given glucagon in Route which improved his blood glucose to 76 on arrival. An additional 1 amp of D50 and 1 L of fluids here in the ED were administered. Blood work was relatively unremarkable aside from an elevated CK of greater than 4000. Patient has a history of Seizure on Dilantin and methamphetamine use. Per report patient denied any use outside of several days. Patient was last seen here in early March for DKA. Patient was evaluated by psychiatry as well. Patient apparently already has outpatient services in place. Urine toxicology ordered but patient has not provided a urine sample as of yet. Past Med Surg Social Fam HX - Past Medical History Medical history: diabetes, hepatitis, hyperlipidemia, hypertension, seizures, other Additional medical history: Hep c IVDU Psychiatric history: bipolar, prior suicide attempt, previous psychiatric hospitalization - Past Surgical History Surgical History: orthopedic, other Additional surgical history: right ankle - Social History Smoking Status: Current every day smoker Smokeless Tobacco Status: No Alcohol use: rarely Drug use: methamphetamine, IV Drug Use, prescription drug abuse - Family History Father Family Member Ethnicity: Non- Living Status: Hx Family Cardiac Disorders: Yes ([place]) Hx Family Endocrine Disorder: Yes ([place]) Mother Family Member Ethnicity: Non- Living Status: Still Living Sister Family Member Ethnicity: Non- Living Status: Still Living Internal Medicine - H&P: Meds NALOXONE 4 MG Nasal [place] [Narcan] 4 mg NS AD #2 sprays 01/04/19 [Rx] Venlafaxine HCl [Effexor Xr] 225 mg PO DAILY 01/26/19 [History] Cyclobenzaprine [Flexeril] 10 mg PO HS #30 tablet 03/26/19 [Rx] Gabapentin 800 mg PO QID #120 tablet 03/26/19 [Rx] Insulin ASPART [NovoLOG] 0 unit SQ TIDWM PRN 03/30/19 [History] Insulin NPH Hum/Reg Insulin Hm [Novolin 70-30 100 Unit/ml Vial] 33 unit SQ QAM 03/30/19 [History] Quetiapine Fumarate [Quetiapine Fumarate ER] 400 mg PO DAILY 03/30/19 [History] Phenytoin ER [Dilantin ER] 100 mg PO TID 05/20/19 [History] Allergy/AdvReac Type Severity Reaction Status Date / Time insulin glargine Allergy Blister Verified 03/23/19 23:42 [From Lantus] diphenhydramine AdvReac Intermediate See Verified 03/23/19 23:42 [From Benadryl] Comments All Systems PM: A 10-system review of systems was performed and is negative for pertinent findings except as documented above in the HPI. - Constitutional Constitutional: no chills, no fever(s), no night sweats - EENT Eyes: no change in vision, no discharge, no pain, no photophobia Ears: no ear discharge, no ear pain, no tinnitus Nose, mouth and throat: no dysphagia, no nasal discharge, no neck pain, no sore throat - Cardiovascular Cardiovascular ROS IM: no chest pain, no diaphoresis, no dyspnea, no lightheadedness, no palpitations, no syncope - Respiratory Respiratory: no cough, no dyspnea, no wheezing, no excessive phlegm production - Gastrointestinal Gastrointestinal: no abdominal pain, no diarrhea, no hematemesis, no hematochezia, no melena, no nausea, no vomiting - Musculoskeletal Musculoskeletal ROS IM: no numbness, no tingling - Integumentary Integumentary IM: no rash, no unusual bruising - Neurological Neurological ROS: no confusion, no convulsions, no focal weakness, no numbness, no tingling, no tremor(s) - Hematologic/Lymphatic Hematologic/Lymphatic: no easy bruising - Constitutional Vitals: Temp Pulse Resp BP Pulse Ox 97.6 F 91 18 121/77 98 05/20/19 15:58 05/20/19 19:01 05/20/19 19:53 05/20/19 19:53 05/20/19 19:01 Exam: General: Alert and oriented 1-2 Skin:Normal color, no rash, no lesions. HEENT:EOM, pupils equal, round and reactive. Cardiovascular:Normal S1 & S2, no rubs, murmurs or gallops. No JVD. Pulse regular. Lungs:Normal breath sounds, no wheezes or crackles. Abdomen:Soft, non-tender, no rigidity. Extremities:No deformity, no edema or tenderness, no joint swelling or clubbing. Neurological: Patient mumbling. Moving all 4 extremities. Able to follow commands. Refusing to open eyes. Pulses:Carotid and radial pulses normal +2. Rest of the physical exam is non contributory Internal Med - H&P Results - Labs CBC & Chem 7: 05/21/19 00:38 05/21/19 00:38 Labs: Short CBC 05/20/19 Range/Units 16:09 WBC 6.3 (4.3-11.1) K/mcL Hgb 11.6 L (12.9-16.9) g/dL Hct 34.4 L (37.5-50.1) % Plt Count 247 (140-400) K/mcL Neutrophils # 3.3 (1.6-8.9) K/mcL BMP 05/20/19 16:09 Sodium 137 Potassium 3.2 L Chloride 100 Carbon Dioxide 28 BUN 16 Creatinine 0.73 Glucose 79 Calcium 9.8 - Assessment and Plan (1) Elevated CK Current Visit: Yes Status: Acute Assessment and plan: Patient found to have a creatinine kinase level of 4255. Etiology at this time remains unclear. The differential includes seizures versus methamphetamine use versus hypoglycemia. Patient received 2 L of fluid boluses here in the ED. -We will continue with aggressive hydration and monitor creatinine kinase levels every 4 hours. -Seizure precautions; check phenytoin level; patient is currently on 100 mg 3 times a day -We will give patient IV push of phenytoin equivalent dose -Glucose checks every 2 hours. (2) Hypoglycemia Current Visit: Yes Status: Acute Assessment and plan: Patient reportedly found to have a blood glucose in the 30s. Glucagon administered in the field with repeat blood glucose of in the mid 70s. One amp of D50 administered here in the ED. -Blood glucose checks every 2 hours with hypoglycemic protocol -Continue D5 normal saline. (3) Methamphetamine abuse Current Visit: Yes Status: Acute Assessment and plan: History of methamphetamine use now presenting with altered mental status. -We will obtain urine drug screen once urine sample obtained. (4) Agitation Current Visit: No Status: Acute Assessment and plan: , Assessment patient altered, somewhat agitated. He is able to follow commands but refusing to open eyes. -We will obtain one-to-one sitter -Ativan as needed for agitation. (5) Diabetes Current Visit: No Status: Chronic Assessment and plan: We will place patient on blood glucose checks every 2 hours. Sliding scale insulin plus basal once blood glucose levels are stable Qualifiers: Diabetes mellitus type: type 1 Diabetes mellitus complication status: with hyperglycemia Qualified Code(s): E10.65 - Type 1 diabetes mellitus with hyperglycemia (6) Psychiatric care Current Visit: No Status: Acute Assessment and plan: Consider psych consult for patient's psychiatric issues. (7) Seizure disorder Current Visit: No Status: Acute Assessment and plan: History of seizure disorder currently on phenytoin. Review of medication with pharmacy noted that he was increased to 3 times a day of his usual dose for 10 days which has since passed. Unclear what plan moving forward was her patient's dosing. -We will give evening dose now. -Consider reaching out to patient's primary caregiver. (8) DVT prophylaxis Current Visit: No Status: Acute Assessment and plan: Subcutaneous heparin - Time Spent With Patient Total time spent is greater than 50% in coordination of care (as documented) at patient's floor/unit and/or counseling patient:
[2019-05-20] MEDS ORDERED: Dextrose Gel 15 GM/37.5 ML TUBE PO PRN ×2 (20:17)
[2019-05-20] MEDS ORDERED: D5% in Water 1,000 ML IVC PRN (20:17)
[2019-05-20] MEDS ORDERED: *HR* Dextrose 50 % in Water (Syg) 50 ML SYRINGE IVP PRN (20:17)
[2019-05-20] MEDS: 0.9 % Sodium Chloride 1,000 ML IVC SCH (21:45)
[2019-05-20 22:29] LABS: Phenytoin (Dilantin) 2.6 mcg/mL (10.0-20.0)
[2019-05-20] MEDS: Gabapentin 400 MG CAPSULE PO SCH (23:05)
[2019-05-20] MEDS: *HR* Heparin 5,000 UNIT/ML VIAL SQ SCH (23:11)
[2019-05-20] MEDS: Insulin LISPRO 300 UNITS/3 ML VIAL SQ SCH (23:11)
[2019-05-21] MEDS: Insulin LISPRO 300 UNITS/3 ML VIAL SQ SCH ×9 (00:46→20:51)
[2019-05-21 01:43] LABS: Hematocrit 34.2 % (37.5-50.1); Hemoglobin 11.2 g/dL (12.9-16.9); Mean Corpuscular HGB Conc 32.7 g/dL (31.6-35.5); Mean Corpuscular Hemoglobin 28.6 pg (28.0-33.3); Mean Corpuscular Volume 87.5 fL (83.0-100.0); Mean Platelet Volume 9.3 fL (9.4-12.4); Platelet Count 227 K/mcL (140-400); Red Blood Count 3.91 M/mcL (4.19-5.50); Red Cell Distribution Width 13.4 % (11.5-14.5); White Blood Count 7.9 K/mcL (4.3-11.1)
[2019-05-21 02:05] LABS: Troponin I < 0.03 ng/mL (< 0.04)
[2019-05-21 02:09] LABS: Alanine Aminotransferase 31 Units/L (7-52); Albumin 3.4 g/dL (3.5-5.7); Albumin/Globulin Ratio 1.5 (1.1-2.2); Alkaline Phosphatase 90 Units/L (34-104); Aspartate Amino Transferase 74 Units/L (13-39); BUN/Creatinine Ratio 18 (6-26); Bilirubin,Total 0.5 mg/dL (0.3-1.0); Blood Urea Nitrogen 10 mg/dL (6-20); Calcium 8.1 mg/dL (8.6-10.3); Carbon Dioxide 25 mEq/L (23-29); Chloride 105 mEq/L (98-107); Globulin 2.2 g/dL (2.4-3.5); Glucose 161 mg/dL (70-105); Magnesium 1.7 mg/dL (1.6-2.6); Osmolality,Calculated 287 (280-300); Phosphorous 3.3 mg/dL (2.7-4.5); Potassium 3.4 mEq/L (3.5-5.1); Sodium 137 mEq/L (136-145); Total Protein 5.6 g/dL (6.4-8.9); eGFR For African Americans > 60 (> 60); eGFR For Non-African Americans > 60 (> 60)
[2019-05-21] MEDS: 0.9 % Sodium Chloride 1,000 ML IVC SCH ×2 (02:16→06:56)
[2019-05-21] MEDS: *HR* Heparin 5,000 UNIT/ML VIAL SQ SCH ×4 (06:55→23:31)
[2019-05-21] MEDS ORDERED: D5% in 0.9% NACL 1,000 ML IVC ONE (06:59)
[2019-05-21] MEDS ORDERED: D5% in 0.9% NACL 1,000 ML IVC SCH (07:15)
--- NOTE | 2019-05-21 07:34 | Internal Med Progress Note ---
Hospitalist Progress Note - Encounter Date of Encounter: 05/21/19 Time of Encounter: 13:03 - Subjective Interval History: No acute events. Patient refuses to participate with me during exam and yells in frustration when being asked questions. - Exam Vitals: Temp Pulse Resp BP Pulse Ox 97.4 F L 87 17 109/57 95 05/21/19 07:24 05/21/19 07:24 05/21/19 07:24 05/21/19 07:24 05/21/19 07:24 Exam: Limited exam due to patient refusing General: Alert and oriented to person, place. Does not participate in remainder of questions. Skin:Normal color, no rash, no lesions. HEENT:EOM, pupils equal, round and reactive. Cardiovascular:Normal S1 & S2, no rubs, murmurs or gallops. No JVD. Pulse regular. Lungs:Normal breath sounds, no wheezes or crackles. Abdomen:Soft, non-tender, no rigidity. Extremities:No deformity, no edema or tenderness, no joint swelling or clubbing. Neurological: Patient mumbling. Moving all 4 extremities. Able to follow commands. Refusing to open eyes. Pulses:Carotid and radial pulses normal +2. - Assessment and Plan (1) Acute metabolic encephalopathy due to hypoglycemia Current Visit: Yes Status: Acute Assessment and Plan: Most likely cause of encephalopathy is hypoglycemia. He was reported to be altered in ED. Currently at bedside he refuses most of physical exam and only answers some questions. He does mumble. Urine drug screen pending. Was highly suspicious as hypoglycemia as etiology, but it is at this point difficult to determine if patient is altered at this point or is completely non-cooperative with exam. Will consult Neurology for further assistance. Repeat Phenytoin levels tomorrow after restarting medications yesterday in ED. (2) Diabetes Current Visit: No Status: Chronic Assessment and Plan: Glucose checks ACHS and as needed. (3) Psychiatric care Current Visit: No Status: Acute (4) Agitation Current Visit: No Status: Acute Assessment and Plan: , Assessment patient altered, somewhat agitated. He is able to follow commands but refusing to open eyes. -We will obtain one-to-one sitter -Ativan as needed for agitation. (5) Seizure disorder Current Visit: No Status: Acute Assessment and Plan: History of seizure disorder currently on phenytoin. Review of medication with pharmacy noted that he was increased to 3 times a day of his usual dose for 10 days which has since passed. Unclear what plan moving forward was her patient's dosing. -Phenytoin levels subtherapeutic patient likely non-compliant. (6) Methamphetamine abuse Current Visit: Yes Status: Acute Assessment and Plan: History of methamphetamine use now presenting with altered mental status. urine drug screen pending. (7) Elevated CK Current Visit: Yes Status: Acute Assessment and Plan: Patient found to have a creatinine kinase level of 4255. Etiology at this time remains unclear. The differential includes seizures versus methamphetamine use versus hypoglycemia. Patient received 2 L of fluid boluses here in the ED. -We will continue with aggressive hydration and monitor creatinine kinase levels every 4 hours. -Seizure precautions; check phenytoin level; patient is currently on 100 mg 3 times a day CK improved with IV fluids. (8) Hypoglycemia Current Visit: Yes Status: Acute Assessment and Plan: Patient reportedly found to have a blood glucose in the 30s. Glucagon administered in the field with repeat blood glucose of in the mid 70s. One amp of D50 administered here in the ED. Now patient is hyperglycemic with glucose in 300s. Will discontinue any dextros e for right now and keep as an as-needed order. (9) DVT prophylaxis Current Visit: No Status: Acute Assessment and Plan: Subcutaneous heparin - Time Spent with Patient Total time spent is greater than 50% in coordination of care (as documented) at patient's floor/unit and/or counseling patient: Internal Medicine: Result - Labs CBC & Chem 7: 05/21/19 00:38 05/21/19 00:38 Labs: Short CBC 05/20/19 05/21/19 Range/Units 16:09 00:38 WBC 6.3 7.9 (4.3-11.1) K/mcL Hgb 11.6 L 11.2 L (12.9-16.9) g/dL Hct 34.4 L 34.2 L (37.5-50.1) % Plt Count 247 227 (140-400) K/mcL Neutrophils # 3.3 (1.6-8.9) K/mcL BMP 05/20/19 05/21/19 16:09 00:38 Sodium 137 137 Potassium 3.2 L 3.4 L Chloride 100 105 Carbon Dioxide 28 25 BUN 16 10 Creatinine 0.73 0.55 L Glucose 79 161 H Calcium 9.8 8.1 L Cardiac Enzymes 05/21/19 Range/Units 00:38 Troponin I < 0.03 (< 0.04) ng/mL Liver Function 05/21/19 Range/Units 00:38 Total Bilirubin 0.5 (0.3-1.0) mg/dL AST 74 H (13-39) Units/L ALT 31 (7-52) Units/L Alkaline Phosphatase 90 (34-104) Units/L Albumin 3.4 L (3.5-5.7) g/dL Consult Discharge Plan - Plan Referrals: NONE,PCP [Primary Care Provider] - (2) Diabetes Qualifiers: Diabetes mellitus type: type 1 Diabetes mellitus complication status: with hyperglycemia Qualified Code(s): E10.65 - Type 1 diabetes mellitus with hyperglycemia
[2019-05-21] MEDS: Venlafaxine XR (24 HR) 75 MG CAP.ER.24H PO SCH (08:30)
[2019-05-21] MEDS: Gabapentin 400 MG CAPSULE PO SCH ×3 (08:30→20:51)
[2019-05-21] MEDS ORDERED: OXYCODONE Oral CONC 10 MG/0.5 ML ORAL.SYG SL PRN (10:50)
--- NOTE | 2019-05-21 15:03 | Neurology - Consult Note ---
<[place] J - Last Filed: 05/21/19 14:53> Date of Encounter: 05/21/19 Time of Encounter: 14:53 Assessment and Plan (1) Noncompliance with medications Current Visit: No Status: Chronic (2) Acute metabolic encephalopathy due to hypoglycemia Current Visit: Yes Status: Acute Neurology c/s to evaluate for AMS Presented with acute metabolic encephalopathy due to hypoglycemia; also had elevated CK Blood glucose has been corrected but he continues to have an AMS and agitation; he is non-cooperative with exam and engages minimally He has a h/o seizures and is non compliant with Antiepileptic medications DDX of AMS includes seizures, hypoglycemia, drugs abuse, vs other He admits to methamphetamine abuse prior to arrival Elevated CK etiology unclear; consider seizure vs methamphetamine abuse or both Methamphetamines with hypoglycemia and seizure hx with non compliance concerns me for seizure etiology as the cause of AMS PLAN: EEG in the a.m. as I do not believe that he will comply today with agitation Restart home Phenytoin C/W seizure precautions C/W Ativan for breakthrough seizures C/W medical and supportive care History of Present Illness Chief complaint: AMS HPI: Mr. Lemus is a 33 year old male with a PMH of IVDU, bipolar, DM, Hepatitis C, HLD, HTN, and seizures who presents with hypoglycemia and AMS. Neurology was consulted to evaluate AMS. Since admission the patient has been noncompliant with examination and Purnima engaging in conversation when spoken to. It is unclear as to whether or not the patient is being uncooperative with exam or if there is an underlying cause of his altered mental state. Of note the patient has a seizure history but does not appear to follow with an [place] neurologist. It is unclear at this juncture who is managing his seizures but he is prescribed Phenytoin. Upon my assessment this afternoon the patient will open his eyes and is able to tell me he is not in pain. Further, he admits to methamphetamine use prior to admission. However, he cannot recall whether or not he had any seizure activity. Otherwise he will not engage further exam and will not follow commands. He was found to be hypoglycemic by EMS with a fingerstick blood glucose of 30. He had an elevated CK of 4255 which is not 885 after fluid resuscitation. His Phenytoin is subtherapeutic at 2.6. Past Med Surg Social Fam HX - Past Medical History Medical history: diabetes, hepatitis, hyperlipidemia, hypertension, seizures, other Additional medical history: Hep c IVDU Psychiatric history: bipolar, prior suicide attempt, previous psychiatric hosp italization - Past Surgical History Surgical History: orthopedic, other Additional surgical history: right ankle - Social History Smoking Status: Current every day smoker Smokeless Tobacco Status: No Alcohol use: rarely Drug use: methamphetamine, IV Drug Use, prescription drug abuse - Family History Father Family Member Ethnicity: Non- Living Status: Hx Family Cardiac Disorders: Yes ([place]) Hx Family Endocrine Disorder: Yes ([place]) Mother Family Member Ethnicity: Non- Living Status: Still Living Sister Family Member Ethnicity: Non- Living Status: Still Living Medications and Allergies NALOXONE 4 MG Nasal [place] [Narcan] 4 mg NS AD #2 sprays 01/04/19 [Rx] Venlafaxine HCl [Effexor Xr] 225 mg PO DAILY 01/26/19 [History] Cyclobenzaprine [Flexeril] 10 mg PO HS #30 tablet 03/26/19 [Rx] Gabapentin 800 mg PO QID #120 tablet 03/26/19 [Rx] Insulin ASPART [NovoLOG] 0 unit SQ TIDWM PRN 03/30/19 [History] Insulin NPH Hum/Reg Insulin Hm [Novolin 70-30 100 Unit/ml Vial] 33 unit SQ QAM 03/30/19 [History] Quetiapine Fumarate [Quetiapine Fumarate ER] 400 mg PO DAILY 03/30/19 [History] Phenytoin ER [Dilantin ER] 100 mg PO TID 05/20/19 [History] Allergy/AdvReac Type Severity Reaction Status Date / Time insulin glargine Allergy Blister Verified 03/23/19 23:42 [From Lantus] diphenhydramine AdvReac Intermediate See Verified 03/23/19 23:42 [From Benadryl] Comments ROS unobtainable: due to mental status All Systems: The remainder of the systems were reviewed and are negative Physical Examination - Vital Signs Vital Signs: Initial Vital Signs Temp Pulse Resp BP Pulse Ox 97.6 F 97 18 141/84 98 05/20/19 15:58 05/20/19 15:58 05/20/19 15:58 05/20/19 15:58 05/20/19 15:58 - Exam Exam: Examination: General Examination: *CONSTITUTIONAL: lethargic but arouses to gentle verbal stimulus. Alert to self, no acute distress *GENERAL APPEARANCE OF PATIENT appears healthy and well groomed *EYES: pupils equal, round, reactive to light and accommodation, conjunctiva clear *CARDIOVASCULAR no peripheral edema, distal temperature normal, dorsalis pedis pulses normal. see vitals Musculoskeletal: *GAIT AND STATION deferred not cooperative to exam *ASSESSMENT OF MUSCLE STRENGTH IN THE UPPER AND LOWER EXTREMITIES not cooperative to exam but was observed moving all 4 extremities spontaneously Neurological: *ORIENTATION to person *ATTENTION AND CONCENTRATION are abnormal as the patient is lethargic but arousable to dental verbal stimulus. It is unclear at this juncture the patient is choosing to disengage or if he truly has an altered mental state *CN II optic fundi were normal, no papilledema noted. *CN III,IV, PERRLA *CN V shows normal sensation and jaw opens symmetrically as witnessed during brief conversation. *CN VII shows normal facial movement symmetrically, upper and lower bilaterally. *CN VIII shows no significant hearing loss on exam *CN IX,,X palate elevated symmetrically *CN XI normal strength in the sternocleidomastoid muscles *PAIN LEVEL 0/10 Results - Laboratory Findings CBC and BMP: 05/21/19 00:38 05/21/19 00:38 Abnormal lab findings: Abnormal lab results RBC 3.91 M/mcL (4.19-5.50) L 05/21/19 00:38 Hgb 11.2 g/dL (12.9-16.9) L 05/21/19 00:38 Hct 34.2 % (37.5-50.1) L 05/21/19 00:38 MPV 9.3 fL (9.4-12.4) L 05/21/19 00:38 Potassium 3.4 mEq/L (3.5-5.1) L 05/21/19 00:38 0.55 mg/dL (0.70-1.30) L 05/21/19 00:38 Glucose 161 mg/dL (70-105) H 05/21/19 00:38 POC Glucose 152 mg/dL (70-99) H 05/21/19 05:40 Calcium 8.1 mg/dL (8.6-10.3) L 05/21/19 00:38 AST 74 Units/L (13-39) H 05/21/19 00:38 885 Units/L (30-223) H 05/21/19 09:29 5.6 g/dL (6.4-8.9) L 05/21/19 00:38 3.4 g/dL (3.5-5.7) L 05/21/19 00:38 2.2 g/dL (2.4-3.5) L 05/21/19 00:38 Phenytoin 2.6 mcg/mL (10.0-20.0) L 05/20/19 16:09 Valproic Acid < 4 mcg/mL (50-100) L 05/20/19 16:09 Consult Discharge Plan - Plan Referrals: NONE,PCP [Primary Care Provider] - <Alex Frances - Last Filed: 05/21/19 18:28> Date of Encounter: 05/21/19 Assessment and Plan (1) Noncompliance with medications Current Visit: No Status: Chronic (2) Acute metabolic encephalopathy due to hypoglycemia Current Visit: Yes Status: Acute I have personally performed a [id number] assessment of the patient and have reviewed the PA/FINISH ROLLS OPERATOR note. My impressions are as follows: Case was discussed with the SHIRT FOLDING MACHINE OPERATOR, I agree with his assessment and plan as stated above. Patient has a known history of seizures which may either be primary, secondary to both since he is using amphetamine which is a central nervous system stimulant, hypo- glycemia can also provoke seizure activity. In regard it is obvious that he is not compliant with his phenytoin. In his particular case I do not believe that an EEG will be necessary. I would simply recommend loading him with 1 g of p henytoin. I would have him follow-up with his primary care provider who he states is Dr. barrow. Otherwise I will reevaluate him at your request. History of Present Illness HPI: Chart was reviewed, the patient was seen and examined in dependently. Case was discussed with the SHIRT FOLDING MACHINE OPERATOR. I agree with his assessment of the history of present illness stated above. I did evaluate this patient personally he was not very cooperative, he does not remember what happened he states that he simply woke up and found himself in the hospital. He does admit to using methamphetamine prior to this hospitalization. Apparently he has a prior history of diabetes with h ypoglycemic episodes, has been admitted several times with DKA, hypertension, seizures or suicidal ideations and a history of drug abuse. Patient CK upon admission was elevated to 4000. His phenytoin level was subtherapeutic at 2.6. ROS unobtainable: other (Patient was simply not cooperative not forthcoming very dismissive.) All Systems: The remainder of the systems were reviewed and are negative Physical Examination - Vital Signs Vital Signs: Initial Vital Signs Temp Pulse Resp BP Pulse Ox 97.6 F 97 18 141/84 98 05/20/19 15:58 05/20/19 15:58 05/20/19 15:58 05/20/19 15:58 05/20/19 15:58 - Exam Exam: I have personally performed a [id number] assessment of the patient and have reviewed the PA/FINISH ROLLS OPERATOR note. My impressions are as follows: I agree with the documentation of the neurologic examination as stated above. Patient was not cooperative for a full neurologic examination however. Results - Laboratory Findings CBC and BMP: 05/21/19 00:38 05/21/19 00:38 Abnormal lab findings: Abnormal lab results RBC 3.91 M/mcL (4.19-5.50) L 05/21/19 00:38 Hgb 11.2 g/dL (12.9-16.9) L 05/21/19 00:38 Hct 34.2 % (37.5-50.1) L 05/21/19 00:38 MPV 9.3 fL (9.4-12.4) L 05/21/19 00:38 Potassium 3.4 mEq/L (3.5-5.1) L 05/21/19 00:38 0.55 mg/dL (0.70-1.30) L 05/21/19 00:38 Glucose 161 mg/dL (70-105) H 05/21/19 00:38 POC Glucose 152 mg/dL (70-99) H 05/21/19 05:40 Calcium 8.1 mg/dL (8.6-10.3) L 05/21/19 00:38 AST 74 Units/L (13-39) H 05/21/19 00:38 885 Units/L (30-223) H 05/21/19 09:29 5.6 g/dL (6.4-8.9) L 05/21/19 00:38 3.4 g/dL (3.5-5.7) L 05/21/19 00:38 2.2 g/dL (2.4-3.5) L 05/21/19 00:38 Phenytoin 2.6 mcg/mL (10.0-20.0) L 05/20/19 16:09 Valproic Acid < 4 mcg/mL (50-100) L 05/20/19 16:09
--- NOTE | 2019-05-22 07:33 | Internal Med Progress Note ---
Hospitalist Progress Note - Encounter Date of Encounter: 05/22/19 Time of Encounter: 10:39 - Subjective Interval History: Patient a lot more alert today, more pleasant, and cooperative with exam. He admits to some blurry vision he had briefly prior but now denies this. Denies headache, fevers/chills, tremors, n/v, chest pain, SOB, loss of balance. - Exam Vitals: Temp Pulse Resp BP Pulse Ox 97.8 F 84 17 138/86 96 05/22/19 05:35 05/22/19 05:35 05/22/19 05:35 05/22/19 05:35 05/22/19 05:35 Exam: More cooperative with toda's physical exam General: AAOx3 Skin:Normal color, no rash, no lesions. HEENT:EOM, pupils equal, round and reactive. Cardiovascular:Normal S1 & S2, no rubs, murmurs or gallops. No JVD. Pulse regular. Lungs:Normal breath sounds, no wheezes or crackles. Abdomen:Soft, non-tender, no rigidity. Extremities:No deformity, no edema or tenderness, no joint swelling or clubbing. Neurological: Speech is normal. Moving all 4 extremities. Able to follow commands. alert Pulses:Carotid and radial pulses normal +2. - Assessment and Plan (1) Acute metabolic encephalopathy due to hypoglycemia Current Visit: Yes Status: Acute Assessment and Plan: Most likely cause of encephalopathy is hypoglycemia. He was reported to be altered in ED. Currently at bedside he refuses most of physical exam and only answers some questions. He does mumble. Urine drug screen pending. Was highly suspicious as hypoglycemia as etiology, but it is at this point difficult to determine if patient is altered at this point or is completely non-cooperative with exam. Phenytoin restarted. Neurology following, recommendations appreciated. (2) Diabetes Current Visit: No Status: Chronic Assessment and Plan: Glucose checks ACHS and as needed. Glucose now in 300s but can drop to 100s. Will need to restart home 70/30 but patient high risk for hypoglycemic events. (3) Psychiatric care Current Visit: No Status: Acute Assessment and Plan: no acute issues, on Seroquel (4) Agitation Current Visit: No Status: Acute Assessment and Plan: Patient now alert and less agitated today. (5) Seizure disorder Current Visit: No Status: Acute Assessment and Plan: History of seizure disorder currently on phenytoin. Review of medication with pharmacy noted that he was increased to 3 times a day of his usual dose for 10 days which has since passed. Unclear what plan moving forward was her patient's dosing. -Phenytoin levels subtherapeutic patient likely non-compliant. Restarted home medications (6) Methamphetamine abuse Current Visit: Yes Status: Acute Assessment and Plan: History of methamphetamine use now presenting with altered mental status. urine drug screen pending. (7) Elevated CK Current Visit: Yes Status: Acute Assessment and Plan: Patient found to have a creatinine kinase level of 4255. Etiology at this time remains unclear. The differential includes seizures versus methamphetamine use versus hypoglycemia. Patient received 2 L of fluid boluses here in the ED. -We will continue with aggressive hydration and monitor creatinine kinase levels every 4 hours. -Seizure precautions; check phenytoin level; patient is currently on 100 mg 3 times a day CK improved with IV fluids. (8) Hypoglycemia Current Visit: Yes Status: Acute Assessment and Plan: Patient reportedly found to have a blood glucose in the 30s. Glucagon administered in the field with repeat blood glucose of in the mid 70s. One amp of D50 administered here in the ED. Now patient is hyperglycemic with glucose in 300s. Will discontinue any dextrose for right now and keep as an as-needed order. (9) DVT prophylaxis Current Visit: No Status: Acute Assessment and Plan: Subcutaneous heparin - Time Spent with Patient Total time spent is greater than 50% in coordination of care (as documented) at patient's floor/unit and/or counseling patient: Internal Medicine: Result - Labs CBC & Chem 7: 05/21/19 00:38 05/21/19 00:38 Consult Discharge Plan - Plan Referrals: NONE,PCP [Primary Care Provider] - (2) Diabetes Qualifiers: Diabetes mellitus type: type 1 Diabetes mellitus complication status: with hyperglycemia Qualified Code(s): E10.65 - Type 1 diabetes mellitus with hyperglycemia
[2019-05-22] MEDS: Venlafaxine XR (24 HR) 75 MG CAP.ER.24H PO SCH (08:24)
[2019-05-22] MEDS: Insulin LISPRO 300 UNITS/3 ML VIAL SQ SCH ×4 (08:24→20:08)
[2019-05-22] MEDS: Gabapentin 400 MG CAPSULE PO SCH ×3 (08:24→20:08)
[2019-05-22] MEDS: *HR* Heparin 5,000 UNIT/ML VIAL SQ SCH (13:39)
[2019-05-23] MEDS: *HR* Heparin 5,000 UNIT/ML VIAL SQ SCH ×4 (01:06→20:35)
[2019-05-23] MEDS: Venlafaxine XR (24 HR) 75 MG CAP.ER.24H PO SCH (08:40)
[2019-05-23] MEDS: Insulin LISPRO 300 UNITS/3 ML VIAL SQ SCH ×4 (08:41→20:51)
[2019-05-23] MEDS: Gabapentin 400 MG CAPSULE PO SCH ×3 (08:41→20:51)
[2019-05-23] MEDS ORDERED: Insulin DETEMIR 100 UNIT/ML X5UNITS SQ ONE (08:59)
--- NOTE | 2019-05-23 11:21 | Internal Med Progress Note ---
Hospitalist Progress Note - Encounter Date of Encounter: 05/23/19 Time of Encounter: 10:20 - Subjective Interval History: Patient seen and examined this morning at bedside. No acute overnight events. Denies new complaints. Slightly sleepy. Afebrile and hemodynamically stable. - Exam Vitals: Temp Pulse Resp BP Pulse Ox 98.2 F 99 18 125/72 93 05/23/19 08:40 05/23/19 08:40 05/23/19 08:40 05/23/19 08:40 05/23/19 08:40 Exam: General: In no acute distress. Respiratory exam: CTAB. no accessory muscle use, rales, rhonchi, wheezes Cardiovascular exam: RRR, +S1, +S2. no murmur, gallop, rubs. GI/Abdominal exam: Non-tender, Non-distended, normal bowel sounds, soft, no peritoneal signs. Extremities exam: no pedal edema, pulses palpable in b/l lower extremities. no calf tenderness Neurological exam: CN II-XII intact, AO X3, no focal deficits grossly. moving all extremity. Skin exam: multiple tattoos noted. - Assessment and Plan (1) Diabetes Current Visit: No Status: Chronic (2) DVT prophylaxis Current Visit: No Status: Acute (3) Psychiatric care Current Visit: No Status: Acute (4) Agitation Current Visit: No Status: Acute (5) Seizure disorder Current Visit: No Status: Acute (6) Methamphetamine abuse Current Visit: Yes Status: Acute (7) Elevated CK Current Visit: Yes Status: Acute (8) Hypoglycemia Current Visit: Yes Status: Acute (9) Acute metabolic encephalopathy due to hypoglycemia Current Visit: Yes Status: Acute - Summary of Assessment and Plan Summary of Assessment and Plan: Assessment Acute acute metabolic encephalopathy hypoglycemia uncontrolled blood sugar seizure disorder h/o Methamphetamine abuse Elevated CK Chronic Diabetes Bipolar h/o suicidal attempt. Plan - Acute metabolic encephalopathy possibly related to hypoglycemia vs seizure dz. Previously with some agitation. Currently cooperative and clam. drug screen ordered today. Had low phenytoin and was non-compliant with phenytoin as could not obtain scripts. Neurology following, recommendations appreciated. Recommended EEG. Will ordere it. c/w prn ativan and seizure precuations. restarted phenytoin. - Glucose now in 400s but occasional low readings. discussed taking meals after insulin. Restart home 70/30 at lower dose at 10 BID. but patient high risk for hypoglycemic events. - c/w home seroquel and venlafaxine - elevated creatinine kinase level improved with IVF. possibly related to se izure vs drug use. - Subcutaneous heparin for dvt ppx. Internal Medicine: Result - Labs CBC & Chem 7: 05/21/19 00:38 05/21/19 00:38 Consult Discharge Plan - Plan Referrals: NONE,PCP [Primary Care Provider] - (1) Diabetes Qualifiers: Diabetes mellitus type: type 1 Diabetes mellitus complication status: with hyperglycemia Qualified Code(s): E10.65 - Type 1 diabetes mellitus with hyperglycemia
--- NOTE | 2019-05-23 13:12 | EEG/EMG/Oth Biometrics Report ---
EEG Procedure Report EEG Procedure: Routine EEG Procedure Note: This is a routine 21 channel digital EEG performed utilizing 10- 20 international electrode placement system. FINDINGS: Patient has a predominant waking background frequency that is average voltage 8 to 10 Hertz alpha activity in the posterior region, normal amplitude symmetrical over the both hemispheres reactive to eyes opening and closing record continued to show alpha activity intermixed with some theta off and on, no abnormal activity recorded, predominantly no evidence of any spike wave discharges or any lateralizing abnormalities, Photic stimulation did not produce any convulsive response. Intermittent EMG artifacts were noted. Stage II sleep was not achieved. Impression: Within the broad range of Normal awake drowsy low amplitude electroencephalogram. No epileptiform discharges or any other paroxysmal activities noted. ( Please note that normal EEG does not exclude the diagnosis of seizures or epilepsy, clinical correlation is suggested)
[2019-05-23 13:55] LABS: Amphetamine Screen,Urine Positive ng/mL (Cutoff=1000); Barbiturate Screen,Urine Negative ng/mL (Cutoff=200); Benzodiazepines Screen,Urine Negative ng/mL (Cutoff=200); Cannabinoid Screen,Urine Negative ng/mL (Cutoff = 50); Cocaine Screen,Urine Negative ng/mL (Cutoff= 300); Opiate Screen,Urine Negative ng/mL (Cutoff=300); Phencyclidine Screen,Urine Negative ng/mL (Cutoff=25)
[2019-05-23] MEDS: Insulin NPH/REG 70/30 100 UNIT/ML (x5UNIT) SQ SCH (16:11)
[2019-05-23] MEDS ORDERED: Insulin DETEMIR 100 UNIT/ML X5UNITS SQ SCH (21:00)
[2019-05-24] MEDS: *HR* Heparin 5,000 UNIT/ML VIAL SQ SCH ×2 (05:35→11:39)
[2019-05-24] MEDS: Gabapentin 400 MG CAPSULE PO SCH (07:51)
[2019-05-24] MEDS: Venlafaxine XR (24 HR) 75 MG CAP.ER.24H PO SCH (07:51)
[2019-05-24] MEDS: Insulin NPH/REG 70/30 100 UNIT/ML (x5UNIT) SQ SCH (07:52)
[2019-05-24] MEDS: Insulin LISPRO 300 UNITS/3 ML VIAL SQ SCH ×2 (07:52→11:25)
[2019-05-24] MEDS ORDERED: Insulin NPH/REG 70/30 100 UNIT/ML (x5UNIT) SQ SCH ×2 (10:45→16:30)
[2019-05-24] MEDS ORDERED: Insulin NPH/REG 70/30 100 UNIT/ML (x5UNIT) SQ ONE (10:47)
--- NOTE | 2019-05-24 11:19 | Discharge Summary ---
- NOTES TO OUTPATIENT PROVIDER Notes to Outpatient Provider: Patient will need close follow-up for his seizures and diabetes. Need follow-up for checking phenytoin levels within 1-2 weeks. Orders not resulted at time of discharge: Pending orders 05/22/19 05:43 Phenytoin Free and Total AM 0400 Date of Encounter: 05/24/19 Time of Encounter: 11:17 - Discharge Diagnosis (1) Diabetes Priority: Secondary Status: Chronic Qualifiers: Diabetes mellitus type: type 1 Diabetes mellitus complication status: with hyperglycemia Qualified Code(s): E10.65 - Type 1 diabetes mellitus with hyperglycemia (2) DVT prophylaxis Priority: Secondary Status: Acute (3) Psychiatric care Priority: Secondary Status: Acute (4) Agitation Priority: Secondary Status: Acute (5) Seizure disorder Priority: Secondary Status: Acute (6) Methamphetamine abuse Priority: Primary Status: Acute (7) Elevated CK Priority: Primary Status: Acute (8) Hypoglycemia Priority: Primary Status: Acute (9) Acute metabolic encephalopathy due to hypoglycemia Priority: Primary Status: Acute Hospital course: Mr. Lemus is a 33 year old male past medical history of hypertension, seizure disorder, hepatitis C, diabetes, bipolar, drug abuse was brought into the ED with hypoglycemia and altered mental status. Patient was also found to have elevated CK levels in 4000 and was started on IV fluids. Patient had used methamphetamine which was confirmed by urine toxicology. Neurology consultation was obtained. There was some suspicion of seizures given elevated CPK as well as all the mental status. Per neurology could have been precipitated with hypoglycemia or methamphetamine use. Recommendation were to continue patient on phenytoin. Patient mental status improved and his agitation has resolved. EEG was without any epileptiform activity. Patient did have hyperglycemia as his insulin was held and gradually resumed. He is home dose were confirmed and resumed. Patient still has elevated blood sugar however is otherwise stable to be discharged. Patient will be given scripts for 30 days of his home medication however is asked to follow up with PCP as soon as possible and monitor his blood sugar level and continue his home dose of insulin with sliding scale coverage which she understands how to take. Also discussed about getting further however for stopping IV drug use with PCP. Discharge discussed with: patient, nurse, social work - Time Spent with Patient Total time spent providing and/or coordinating discharge services: Time spent: Greater than 30 minutes (40) - Discharge Medications Prescriptions: New Gabapentin [Neurontin] 600 mg PO TID 30 Days #180 capsule Continued NALOXONE 4 MG Nasal [place] [Narcan] 4 mg NS AD #2 sprays Phenytoin ER [Dilantin ER] 100 mg PO TID 30 Days #90 capsule Venlafaxine HCl [Effexor Xr] 225 mg PO DAILY 30 Days #90 cap.er.24h Cyclobenzaprine [Flexeril] 10 mg PO HS 15 Days #15 tablet Insulin NPH Hum/Reg Insulin Hm [Novolin 70-30 100 Unit/ml Vial] 33 unit SQ QAM 30 Days #1 vial Insulin ASPART [NovoLOG] See Protocol SQ TIDWM PRN #1 vial PRN Reason: SLIDING SCALE Quetiapine Fumarate [Quetiapine Fumarate ER] 400 mg PO DAILY 30 Days #30 tab.er.24h Discontinued Gabapentin 800 mg PO QID #120 tablet Home Medications: NALOXONE 4 MG Nasal [place] [Narcan] 4 mg NS AD #2 sprays 01/04/19 [Rx] Cyclobenzaprine [Flexeril] 10 mg PO HS 15 Days #15 tablet 05/24/19 [Rx] Gabapentin [Neurontin] 600 mg PO TID 30 Days #180 capsule 05/24/19 [Rx] Insulin ASPART [NovoLOG] See Protocol SQ TIDWM PRN #1 vial 05/24/19 [Rx] Insulin NPH Hum/Reg Insulin Hm [Novolin 70-30 100 Unit/ml Vial] 33 unit SQ QAM 30 Days #1 vial 05/24/19 [Rx] Phenytoin ER [Dilantin ER] 100 mg PO TID 30 Days #90 capsule 05/24/19 [Rx] Quetiapine Fumarate [Quetiapine Fumarate ER] 400 mg PO DAILY 30 Days #30 tab.er.24h 05/24/19 [Rx] Venlafaxine HCl [Effexor Xr] 225 mg PO DAILY 30 Days #90 cap.er.24h 05/24/19 [Rx] Allergies/Adverse Reactions: Allergy/AdvReac Type Severity Reaction Status Date / Time insulin glargine Allergy Blister Verified 03/23/19 23:42 [From Lantus] diphenhydramine AdvReac Intermediate See Verified 03/23/19 23:42 [From Benadryl] Comments Date of admission: 05/23/19 11:27 Primary care physician: PCP NONE Consults: 05/20/19 19:[address] [employer] [address] [employer] [CONS] Routine Reason for SW Consult: Previously homeless. IVDA 05/21/19 13:46 Consult to Neurology [CONS] Routine Consulting Provider: [facility] Reason for Consult: altered mental status Call Completed: Yes 05/23/19 12:40 Consult to Interpret Exam [CONS] Routine Consulting Provider: Lisa Garcia I Consult to Interpret Exam: Interpret EEG Discharging clinician: Gabriela Rosas - Constitutional Vitals: Temp Pulse Resp BP Pulse Ox 97.6 F 69 18 128/79 93 05/24/19 07:34 05/24/19 07:34 05/24/19 07:34 05/24/19 07:34 05/24/19 07:34 Exam: General: In no acute distress. Respiratory exam: CTAB. no accessory muscle use, rales, rhonchi, wheezes Cardiovascular exam: RRR, +S1, +S2. no murmur, gallop, rubs. GI/Abdominal exam: Non-tender, Non-distended, normal bowel sounds, soft, no peritoneal signs. Extremities exam: no pedal edema, pulses palpable in b/l lower extremities. no calf tenderness Neurological exam: CN II-XII intact, AO X3, no focal deficits grossly. Skin exam: multiple tattoos noted. - Patient Status Disposition: Home, Self-Care Condition: Fair - Discharge Instructions Instructions: Phenytoin (By mouth), Gabapentin (By mouth), Venlafaxine (By mouth), Quetiapine (By mouth), Insulin Aspart Protamine/Insulin Aspart (Injection) Follow Up With: NONE,PCP [Primary Care Provider] - - Diet and Activity Activity: increase activity as tolerated
[2019-05-24 12:00] VITALS: BP 154/92
[2019-05-24] MEDS ORDERED: Gabapentin 300 MG CAPSULE PO SCH (15:00)
[2019-05-24 16:29] LABS: Phenytoin (Dilantin) Free 0.5 ug/mL (1.0-2.5)
[2019-05-25 15:16] LABS: Phenytoin Percent Free 12.8 % (8.0-14.0)
== END 2019-05-24 14:19 | disposition home or self-care (01) | DRG 420 ==
LOC: 2ANU 15:51 → EMEROOARM 15:51 → SUATTDRO 18:39 → 2ANU 20:16
PROVIDERS: ADMIT Internal Medicine Nephrology; ATTEND Internal Medicine

== ENCOUNTER 2019-05-25 12:46 | Inpatient (IN) ==
--- NOTE | 2019-05-25 13:43 | Emergency Department Note ---
Disposition Clinical Impression: Methamphetamine abuse DKA (diabetic ketoacidoses) Qualifiers: Diabetes mellitus type: other specified (including [place]) Diabetes mellitus complication detail: without coma Qualified Code(s): E13.10 - Other specified diabetes mellitus with ketoacidosis without coma Disposition: Admitted As Inpatient Condition: Fair Referrals: NONE,PCP [Primary Care Provider] - Forms: ED Satisfaction Letter Time of Disposition: 17:05 General Adult HPI - General Chief complaint: ED Psychiatric Symptoms Stated complaint: Psych Eval Time Seen by Provider: 05/25/19 12:48 Source: patient, EMS Limitations: no limitations Nursing Notes Reviewed: Yes Vital Signs Reviewed: Yes - History of Present Illness HPI Narrative: I did review the previous record. The patient presents with suicidal ideation which has been going on for the last 1 week but worse since last night. No plan. He has tried end his life in the past by hanging himself and also cutting his wrists. He does not have any visual or auditory hallucinations. No pain in the head, neck, chest, abdomen or back. Social history: Smoker. He does use both methamphetamine and injection heroin with last use of heroin yesterday. He does have a history of diabetes Pain Scale: 0 - Related Data Previous Rx's Medication Instructions Recorded NALOXONE 4 MG Nasal [place] [Narcan] 4 mg NS AD #2 sprays 01/04/19 Cyclobenzaprine [Flexeril] 10 mg PO HS 15 Days #15 tablet 05/24/19 Gabapentin [Neurontin] 600 mg PO TID 30 Days #180 capsule 05/24/19 Insulin ASPART [NovoLOG] See Protocol SQ TIDWM PRN #1 vial 05/24/19 Insulin NPH Hum/Reg Insulin Hm 33 unit SQ QAM 30 Days #1 vial 05/24/19 [Novolin 70-30 100 Unit/ml Vial] Phenytoin ER [Dilantin ER] 100 mg PO TID 30 Days #90 capsule 05/24/19 Quetiapine Fumarate [Quetiapine 400 mg PO DAILY 30 Days #30 05/24/19 Fumarate ER] tab.er.24h Venlafaxine HCl [Effexor Xr] 225 mg PO DAILY 30 Days #90 05/24/19 cap.er.24h Allergies Allergy/AdvReac Type Severity Reaction Status Date / Time insulin glargine Allergy Blister Verified 03/23/19 23:42 [From Lantus] diphenhydramine AdvReac Intermediate See Verified 03/23/19 23:42 [From Benadryl] Comments Review of Systems: Constitutional: No fever Vision: No blurred vision ENT: No rhinorrhea Respiratory: No cough Allergic: No allergies : No blood in urine GI: No blood in stool Hematologic: No bruising Dermatologic: No skin rash Musculoskeletal: No pain in the extremities Neuro: No numbness of the extremities Past Medical History - Past Medical History Medical history: Reports: diabetes, hepatitis, hyperlipidemia, hypertension, seizures, other Surgical history: Reports: orthopedic, other Psychiatric history: Reports: anxiety, bipolar, depression, prior suicide attempt, previous psychiatric hospitalization - Social History Smoking Status: Current every day smoker Smokeless Tobacco Status: No Alcohol use: Reports: rarely Drug use: Reports: opiates, methamphetamine, IV Drug Use, prescription drug abuse Physical Exam CONSTITUTIONAL: Alert and oriented X3, well-nourished, well appearing, in no apparent distress HEAD: Normocephalic; atraumatic. EYES: PERRL, no scleral icterus. NOSE: The nose is normal in appearance without rhinorrhea RESP: Normal chest excursion with respiration; breath sounds clear and equal bilaterally; no wheezes, rhonchi, or rales CARD: Regular rhythm, without murmurs, rub or gallop ABD: Non-distended; non-tender, soft,without rigidity, rebound or guarding SKIN: Normal for age and race; warm and dry; no apparent lesions - General Limitations: no limitations General appearance: alert, in no apparent distress Course Vital Signs Temperature 98.1 F 05/25/19 12:49 Pulse Rate 104 05/25/19 12:49 Respiratory Rate 16 05/25/19 12:49 Blood Pressure 136/83 05/25/19 12:49 O2 Sat by Pulse Oximetry 97 05/25/19 12:49 Temperature 98.1 F 05/25/19 12:49 Pulse Rate 102 05/25/19 18:00 Respiratory Rate 20 05/25/19 18:00 Blood Pressure 153/94 05/25/19 18:00 O2 Sat by Pulse Oximetry 98 05/25/19 18:00 Oxygen Delivery Oxygen Delivery Room Air Medical Decision Making - MDM Narrative Medical decision making narrative: patient is suicidal. Psychiatric labs are ordered and then psychiatric services from [facility] will be ordered to assess the patient. 1343 Patient does have significantly elevated blood sugar and low serum bicarbonate and I did add on a VBG and beta hydroxybutyric acid as well as giving 2 L of fluid IV. He is noncompliant with his insulin. The patient will also get Zofran because he has nausea. 1457 I did go back and reassessed the patient. He is vomiting still and so I did write for Phenergan as well I did get the results back from the VBG and the patient does have an anion gap of 24 and the patient does have a pH of 7.35 but does have respiratory compensation so the diagnosis is diabetic ketoacidosis. I did speak with the patient again and he said that he does have a allergy to Lantus insulin but he is able to take IV insulin. I will also write for 40 mg IV Protonix. I did speak with Dr. Montoya who accepts the patient for admission 1702 I did review the EKG which was ordered by the hospitalist showing normal sinus rhythm with a rate of 98 and nonspecific changes but no evidence of arrhythmia or acute stemi 0808 - Lab Data Result diagrams: 05/25/19 13:40 05/25/19 13:40 Lab Results 05/25/19 05/25/19 05/25/19 Range/Units 13:14 13:15 13:40 WBC 10.4 (4.3-11.1) K/mcL RBC 4.01 L (4.19-5.50) M/mcL Hgb 11.5 L (12.9-16.9) g/dL Hct 35.2 L (37.5-50.1) % MCV 87.8 (83.0-100.0) fL MCH 28.7 (28.0-33.3) pg MCHC 32.7 (31.6-35.5) g/dL RDW 13.7 (11.5-14.5) % Plt Count 244 (140-400) K/mcL MPV 9.5 (9.4-12.4) fL Immature Gran % 0.4 (0-4) % Seg Neutrophils % 81.9 % Lymphocytes % 9.8 % Monocytes % 7.3 % Eosinophils % 0.3 % Basophils % 0.3 % Neutrophils # 8.5 (1.6-8.9) K/mcL Lymphocytes # 1.0 (0.6-4.6) K/mcL Monocytes # 0.8 (0.0-1.3) K/mcL Eosinophils # 0.0 (0.0-0.6) K/mcL Basophils # 0.0 (0.0-0.2) K/mcL VBG pH (7.32-7.42) pH Units VBG pCO2 (41-51) mmHg VBG pO2 (25-50) mmHg VBG HCO3 (21-27) mEq/L Sodium (136-145) mEq/L Potassium (3.5-5.1) mEq/L Chloride (98-107) mEq/L Carbon Dioxide (23-29) mEq/L BUN (6-20) mg/dL Creatinine (0.70-1.30) mg/dL Est GFR ( Amer) (> 60) Est GFR (Non-Af Amer) (> 60) BUN/Creatinine Ratio (6-26) Glucose (70-105) mg/dL POC Glucose 481 H* 496 H* (70-99) mg/dL Calculated Osmolality (280-300) Calcium (8.6-10.3) mg/dL Beta-Hydroxybutyric Acd (0.02-0.27) mmol/L Urine Color (Yellow) Urine Clarity (Clear) Urine pH (5.0-8.0) pH Units Ur Specific [place] (1.010-1.025) Urine Protein (Neg-Trace) mg/dL Urine Glucose (UA) (Normal) mg/dL Urine Ketones (Negative) mg/dL Urine Blood (Negative) Urine Nitrite (Negative) Urine Bilirubin (Negative) Urine Urobilinogen (Normal) mg/dL Ur Leukocyte Esterase (Negative) Salicylates (15.0-30.0) mg/dL Urine Opiates Screen (Ejhsfa=217) ng/mL Ur Buprenorphine Scrn (Cutoff=5) ng/mL Acetaminophen (10-20) mcg/mL Ur Barbiturates Screen (Jkvydb=856) ng/mL Ur Phencyclidine Scrn (Cutoff=25) ng/mL Ur Amphetamines Screen (Foxvko=2036) ng/mL U Benzodiazepines Scrn (Wwyznf=088) ng/mL Urine Cocaine Screen (Cutoff= 300) ng/mL U Marijuana (THC) Screen (Cutoff = 50) ng/mL Ur Drug Screen Interp Ethyl Alcohol (Less than 10) mg/dL 05/25/19 05/25/19 05/25/19 Range/Units 13:40 13:42 13:42 WBC (4.3-11.1) K/mcL RBC (4.19-5.50) M/mcL Hgb (12.9-16.9) g/dL Hct (37.5-50.1) % MCV (83.0-100.0) fL MCH (28.0-33.3) pg MCHC (31.6-35.5) g/dL RDW (11.5-14.5) % Plt Count (140-400) K/mcL MPV (9.4-12.4) fL Immature Gran % (0-4) % Seg Neutrophils % % Lymphocytes % % Monocytes % % Eosinophils % % Basophils % % Neutrophils # (1.6-8.9) K/mcL Lymphocytes # (0.6-4.6) K/mcL Monocytes # (0.0-1.3) K/mcL Eosinophils # (0.0-0.6) K/mcL Basophils # (0.0-0.2) K/mcL VBG pH (7.32-7.42) pH Units VBG pCO2 (41-51) mmHg VBG pO2 (25-50) mmHg VBG HCO3 (21-27) mEq/L Sodium 129 L (136-145) mEq/L Potassium 4.9 (3.5-5.1) mEq/L Chloride 89 L (98-107) mEq/L Carbon Dioxide 16 L (23-29) mEq/L BUN 19 (6-20) mg/dL Creatinine 0.80 (0.70-1.30) mg/dL Est GFR ( Amer) > 60 (> 60) Est GFR (Non-Af Amer) > 60 (> 60) BUN/Creatinine Ratio 24 (6-26) Glucose 532 H* (70-105) mg/dL POC Glucose (70-99) mg/dL Calculated Osmolality 294 (280-300) Calcium 9.3 (8.6-10.3) mg/dL Beta-Hydroxybutyric Acd (0.02-0.27) mmol/L Urine Color Yellow (Yellow) Urine Clarity Clear (Clear) Urine pH 5.5 (5.0-8.0) pH Units Ur Specific [place] > 1.030 H (1.010-1.025) Urine Protein Negative (Neg-Trace) mg/dL Urine Glucose (UA) >=1000 H (Normal) mg/dL Urine Ketones 80 H (Negative) mg/dL Urine Blood Negative (Negative) Urine Nitrite Negative (Negative) Urine Bilirubin Negative (Negative) Urine Urobilinogen Normal (Normal) mg/dL Ur Leukocyte Esterase Negative (Negative) Salicylates < 2.5 L (15.0-30.0) mg/dL Urine Opiates Screen Negative (Houeto=942) ng/mL Ur Buprenorphine Scrn Negative (Cutoff=5) ng/mL Acetaminophen < 10 L (10-20) mcg/mL Ur Barbiturates Screen Negative (Rtaexp=251) ng/mL Ur Phencyclidine Scrn Negative (Cutoff=25) ng/mL Ur Amphetamines Screen Positive H (Uvzmjo=2591) ng/mL U Benzodiazepines Scrn Negative (Papljq=469) ng/mL Urine Cocaine Screen Negative (Cutoff= 300) ng/mL U Marijuana (THC) Screen Negative (Cutoff = 50) ng/mL Ur Drug Screen Interp See Below Ethyl Alcohol < 10 (Less than 10) mg/dL 05/25/19 05/25/19 Range/Units 14:56 16:33 WBC (4.3-11.1) K/mcL RBC (4.19-5.50) M/mcL Hgb (12.9-16.9) g/dL Hct (37.5-50.1) % MCV (83.0-100.0) fL MCH (28.0-33.3) pg MCHC (31.6-35.5) g/dL RDW (11.5-14.5) % Plt Count (140-400) K/mcL MPV (9.4-12.4) fL Immature Gran % (0-4) % Seg Neutrophils % % Lymphocytes % % Monocytes % % Eosinophils % % Basophils % % Neutrophils # (1.6-8.9) K/mcL Lymphocytes # (0.6-4.6) K/mcL Monocytes # (0.0-1.3) K/mcL Eosinophils # (0.0-0.6) K/mcL Basophils # (0.0-0.2) K/mcL VBG pH 7.35 (7.32-7.42) pH Units VBG pCO2 32 L (41-51) mmHg VBG pO2 112 H (25-50) mmHg VBG HCO3 17 L (21-27) mEq/L Sodium (136-145) mEq/L Potassium (3.5-5.1) mEq/L Chloride (98-107) mEq/L Carbon Dioxide (23-29) mEq/L BUN (6-20) mg/dL Creatinine (0.70-1.30) mg/dL Est GFR ( Amer) (> 60) Est GFR (Non-Af Amer) (> 60) BUN/Creatinine Ratio (6-26) Glucose (70-105) mg/dL POC Glucose (70-99) mg/dL Calculated Osmolality (280-300) Calcium (8.6-10.3) mg/dL Beta-Hydroxybutyric Acd > 2.00 H (0.02-0.27) mmol/L Urine Color (Yellow) Urine Clarity (Clear) Urine pH (5.0-8.0) pH Units Ur Specific [place] (1.010-1.025) Urine Protein (Neg-Trace) mg/dL Urine Glucose (UA) (Normal) mg/dL Urine Ketones (Negative) mg/dL Urine Blood (Negative) Urine Nitrite (Negative) Urine Bilirubin (Negative) Urine Urobilinogen (Normal) mg/dL Ur Leukocyte Esterase (Negative) Salicylates (15.0-30.0) mg/dL Urine Opiates Screen (Yymdge=884) ng/mL Ur Buprenorphine Scrn (Cutoff=5) ng/mL Acetaminophen (10-20) mcg/mL Ur Barbiturates Screen (Cqvnut=935) ng/mL Ur Phencyclidine Scrn (Cutoff=25) ng/mL Ur Amphetamines Screen (Sanrwi=2593) ng/mL U Benzodiazepines Scrn (Lxxatr=160) ng/mL Urine Cocaine Screen (Cutoff= 300) ng/mL U Marijuana (THC) Screen (Cutoff = 50) ng/mL Ur Drug Screen Interp Ethyl Alcohol (Less than 10) mg/dL Critical Care Time Critical Care Time: Yes Total Critical Care Time: 30 Attestation: I did spend 30 minutes of critical care time with the patient in diabetic ketoacidosis with frequent reassessments, IV insulin, analysis of the VBG results, multiple doses of antibiotics and discussed with the hospitalist.
[2019-05-25 14:00] LABS: Basophils % 0.3 %; Eosinophils % 0.3 %; Hematocrit 35.2 % (37.5-50.1); Hemoglobin 11.5 g/dL (12.9-16.9); Immature Granulocytes % 0.4 % (0-4); Lymphocytes % 9.8 %; Mean Corpuscular HGB Conc 32.7 g/dL (31.6-35.5); Mean Corpuscular Hemoglobin 28.7 pg (28.0-33.3); Mean Corpuscular Volume 87.8 fL (83.0-100.0); Mean Platelet Volume 9.5 fL (9.4-12.4); Monocytes # 0.8 K/mcL (0.0-1.3); Monocytes % 7.3 %; Neutrophils # 8.5 K/mcL (1.6-8.9); Platelet Count 244 K/mcL (140-400); Red Blood Count 4.01 M/mcL (4.19-5.50); Red Cell Distribution Width 13.7 % (11.5-14.5); Segmented Neutrophils % 81.9 %; White Blood Count 10.4 K/mcL (4.3-11.1)
[2019-05-25 14:13] LABS: Bilirubin,Urine Negative (Negative); Blood,Urine Negative (Negative); Clarity,Urine Clear (Clear); Glucose,Urine (UA) >=1000 mg/dL (Normal); Ketones,Urine 80 mg/dL (Negative); Leukocyte Esterase,Urine Negative (Negative); Nitrite,Urine Negative (Negative); PH,Urine 5.5 pH Units (5.0-8.0); Protein,Urine Negative (Neg-Trace); Specific Gravity,Urine > 1.030 (1.010-1.025); Urobilinogen,Urine Normal (Normal)
[2019-05-25 14:17] LABS: Color,Urine Yellow (Yellow)
[2019-05-25 14:47] LABS: Acetaminophen < 10 mcg/mL (10-20); BUN/Creatinine Ratio 24 (6-26); Blood Urea Nitrogen 19 mg/dL (6-20); Calcium 9.3 mg/dL (8.6-10.3); Carbon Dioxide 16 mEq/L (23-29); Chloride 89 mEq/L (98-107); Ethanol < 10 mg/dL (Less than 10); Glucose 532 mg/dL (70-105); Osmolality,Calculated 294 (280-300); Potassium 4.9 mEq/L (3.5-5.1); Salicylate < 2.5 mg/dL (15.0-30.0); Sodium 129 mEq/L (136-145); eGFR For African Americans > 60 (> 60); eGFR For Non-African Americans > 60 (> 60)
[2019-05-25] MEDS ORDERED: Ondansetron 4 MG/2 ML VIAL IVP ONE ×2 (14:51→16:21)
[2019-05-25 14:53] LABS: Amphetamine Screen,Urine Positive ng/mL (Cutoff=1000); Barbiturate Screen,Urine Negative ng/mL (Cutoff=200); Benzodiazepines Screen,Urine Negative ng/mL (Cutoff=200); Cannabinoid Screen,Urine Negative ng/mL (Cutoff = 50); Cocaine Screen,Urine Negative ng/mL (Cutoff= 300); Opiate Screen,Urine Negative ng/mL (Cutoff=300); Phencyclidine Screen,Urine Negative ng/mL (Cutoff=25)
[2019-05-25] MEDS: 0.9 % Sodium Chloride 1,000 ML IVC SCH ×4 (15:13→19:29)
[2019-05-25 16:38] LABS: VBG HCO3 17 mEq/L (21-27); VBG PCO2 32 mmHg (41-51); VBG PH 7.35 pH Units (7.32-7.42); VBG PO2 112 mmHg (25-50)
[2019-05-25] MEDS ORDERED: *HR* Promethazine 25 MG/ML VIAL IVP ONE (16:58)
[2019-05-25] MEDS ORDERED: Pantoprazole 40 MG VIAL IVP ONE (16:59)
[2019-05-25] MEDS ORDERED: Insulin Human Regular 100 UNIT in 0.9 % Sodium Chloride 100 ML IVC SCH ×2 (17:00→17:15)
[2019-05-25] MEDS ORDERED: Insulin Regular, Human 100 UNIT/ML IV PRN (17:09)
[2019-05-25] MEDS ORDERED: *HR* Dextrose 50 % in Water (Syg) 50 ML SYRINGE IVP PRN (17:09)
[2019-05-25] MEDS ORDERED: D5% in 0.45% NACL w KCl 20 MEQ/1,000 ML MLS IVC PRN (17:09)
[2019-05-25] MEDS ORDERED: Insulin Regular, Human 100 UNIT/ML IV ONE (17:09)
[2019-05-25] MEDS ORDERED: 0.45 % Sodium Chloride w/KCl 20 MEQ/1,000 ML MLS IVC SCH (17:15)
[2019-05-25] MEDS ORDERED: *HR* Promethazine 25 MG/ML VIAL IVP PRN (17:32)
[2019-05-25] MEDS ORDERED: Naloxone 0.4 MG/ML INJ IVP PRN (17:32)
[2019-05-25] MEDS ORDERED: Ketorolac 15 MG/ML VIAL IVP PRN (17:32)
--- NOTE | 2019-05-25 17:38 | Internal Med History&Physical ---
Date of Encounter: 05/25/19 Time of Encounter: 17:36 Internal Medicine - H&P: HPI Chief complaint: Suicidial Ideation Admitted From: Emergency Dept Plans for Post Hospital Care: Transfer Psych Facility History of present illness: Mr. Lemus is a 33 year old male with history of diabetes, drug abuse who presents with suicidal ideation. Patient states that he wants to . He reports he is attempted suicide in the past. Denies any hallucinations. He reports drug abuse with methamphetamine and heroin. He states he generally feels unwell. He reports nausea and vomiting. Denies any fevers, chills, chest pain, abdominal pain. He states nothing seems to make his symptoms better or worse. He states he has been compliant with his insulin regimen. Patient refuses to discuss CODE STATUS at this time he will be full code. Past Med Surg Social Fam HX - Past Medical History Medical history: diabetes, hepatitis, hyperlipidemia, hypertension, seizures, other Additional medical history: Hep c IVDU Psychiatric history: anxiety, bipolar, depression, prior suicide attempt, previous psychiatric hospitalization - Past Surgical History Surgical History: orthopedic, other Additional surgical history: right ankle - Social History Smoking Status: Current every day smoker Smokeless Tobacco Status: No Alcohol use: rarely Drug use: opiates, methamphetamine, IV Drug Use, prescription drug abuse - Family History Father Family Member Ethnicity: Non- Living Status: Hx Family Cardiac Disorders: Yes ([place]) Hx Family Endocrine Disorder: Yes ([place]) Mother Family Member Ethnicity: Non- Living Status: Still Living Sister Family Member Ethnicity: Non- Living Status: Still Living Internal Medicine - H&P: Meds NALOXONE 4 MG Nasal [place] [Narcan] 4 mg NS AD #2 sprays 01/04/19 [Rx] Cyclobenzaprine [Flexeril] 10 mg PO HS 15 Days #15 tablet 05/24/19 [Rx] Gabapentin [Neurontin] 600 mg PO TID 30 Days #180 capsule 05/24/19 [Rx] Insulin ASPART [NovoLOG] See Protocol SQ TIDWM PRN #1 vial 05/24/19 [Rx] Insulin NPH Hum/Reg Insulin Hm [Novolin 70-30 100 Unit/ml Vial] 33 unit SQ QAM 30 Days #1 vial 05/24/19 [Rx] Phenytoin ER [Dilantin ER] 100 mg PO TID 30 Days #90 capsule 05/24/19 [Rx] Quetiapine Fumarate [Quetiapine Fumarate ER] 400 mg PO DAILY 30 Days #30 tab.er.24h 05/24/19 [Rx] Venlafaxine HCl [Effexor Xr] 225 mg PO DAILY 30 Days #90 cap.er.24h 05/24/19 [Rx] Allergy/AdvReac Type Severity Reaction Status Date / Time insulin glargine Allergy Blister Verified 03/23/19 23:42 [From Lantus] diphenhydramine AdvReac Intermediate See Verified 03/23/19 23:42 [From Benadryl] Comments All Systems PM: A 10-system review of systems was performed and is negative for pertinent findings except as documented above in the HPI. Review of systems: Patient refuses to participate in full review of systems. - Constitutional Vitals: Temp Pulse Resp BP Pulse Ox 98.1 F 96 12 136/83 98 05/25/19 12:49 05/25/19 15:19 05/25/19 15:19 05/25/19 12:49 05/25/19 15:19 General appearance: Present: A&O X 3 Exam: Appears ill. - Head Head exam: Present: atraumatic, normal inspection, normocephalic - Eye Eye exam: Present: EOMI, PERRL - ENT ENT exam: Present: mucous membranes dry, normal oropharynx - Neck Neck exam general surgery: Present: full ROM. Absent: tenderness - Respiratory Respiratory exam: Present: CTAB. Absent: rales, rhonchi, wheezes - Cardiovascular Cardiovascular exam: Present: RRR. Absent: gallop, rubs, systolic murmur - GI/Abdominal GI/Abdominal exam: Present: normal bowel sounds, soft, tenderness (Mild, diffuse). Absent: distended, firm, guarding, rebound, rigid - Extremities Exam Extremities exam: Present: warm. Absent: pedal edema, tenderness - Neurological Exam Neurological exam: Present: alert, CN II-XII intact, oriented X3, no focal deficits - Psychiatric Psychiatric exam: Present: flat affect, suicidal ideation. Absent: homicidal ideation - Skin Skin exam: Present: dry, intact, warm Internal Med - H&P Results - Labs CBC & Chem 7: 05/25/19 13:40 05/25/19 13:40 Labs: Short CBC 05/25/19 Range/Units 13:40 WBC 10.4 (4.3-11.1) K/mcL Hgb 11.5 L (12.9-16.9) g/dL Hct 35.2 L (37.5-50.1) % Plt Count 244 (140-400) K/mcL Neutrophils # 8.5 (1.6-8.9) K/mcL BMP 05/25/19 13:40 Sodium 129 L Potassium 4.9 Chloride 89 L Carbon Dioxide 16 L BUN 19 Creatinine 0.80 Glucose 532 H* Calcium 9.3 Urine 05/25/19 Range/Units 13:42 Urine Color Yellow (Yellow) Urine Clarity Clear (Clear) Urine pH 5.5 (5.0-8.0) pH Units Ur Specific [place] > 1.030 H (1.010-1.025) Urine Protein Negative (Neg-Trace) mg/dL Urine Glucose (UA) >=1000 H (Normal) mg/dL - ABG Interpretation ABG results: 05/25/19 16:33 VBG pH 7.35 VBG pCO2 32 L VBG pO2 112 H VBG HCO3 17 L - Assessment and Plan (1) DKA (diabetic ketoacidoses) Current Visit: Yes Status: Acute Assessment and plan: Patient presents with hyperglycemia with elevated anion gap. Compensated metabolic acidosis. Beta hydroxybutyric acid greater than 2 and ketones in the urine. Reports compliance with insulin but he is known to be noncompliant in the past. Also may be related to drug abuse which he admits as well, drug screen positive for amphetamines.. We will give IV fluids, initially with boluses and then transition to IV maintenance fluid with 20 of K. BMPs every 4 hours. Initial IV insulin bolus then insulin drip per DKA protocol. EKG reviewed and shows no ischemic changes. Keep nothing by mouth. Accu-Cheks every one hours. Patient is at high risk for decompensation and will need close monitoring while on insulin drip. Qualifiers: Diabetes mellitus type: type 1 Diabetes mellitus complication detail: [facility] coma Qualified Code(s): E10.10 - Type 1 diabetes mellitus with keto acidosis without coma (2) Suicidal ideation Current Visit: Yes Status: Acute Assessment and plan: Patient reports acute suicidal ideation. He denies any significant plan. He has attempted in the past. Once his DKA and medical problems resolve patient will require psychiatric evaluation. Continue suicide precautions. (3) Drug abuse Current Visit: Yes Status: Acute Assessment and plan: Continue to encourage cessation. Patient should consider rehabilitation therapy. (4) Seizure disorder Current Visit: No Status: Acute Assessment and plan: No evidence of seizure activity. Patient reports compliance with his medications. Restart home medications when able to take by mouth. (5) DVT prophylaxis Current Visit: No Status: Acute Assessment and plan: Heparin 5000 units subcutaneous twice a day. - Time Spent With Patient Total time spent is greater than 50% in coordination of care (as documented) at patient's floor/unit and/or counseling patient:
[2019-05-25 18:32] LABS: BUN/Creatinine Ratio 22 (6-26); Blood Urea Nitrogen 17 mg/dL (6-20); Calcium 9.3 mg/dL (8.6-10.3); Chloride 95 mEq/L (98-107); Glucose 479 mg/dL (70-105); Osmolality,Calculated 297 (280-300); Potassium 5.1 mEq/L (3.5-5.1); Sodium 132 mEq/L (136-145); eGFR For African Americans > 60 (> 60); eGFR For Non-African Americans > 60 (> 60)
[2019-05-25 18:38] LABS: Carbon Dioxide 10 mEq/L (23-29)
[2019-05-25 21:51] LABS: BUN/Creatinine Ratio 20 (6-26); Blood Urea Nitrogen 15 mg/dL (6-20); Calcium 8.7 mg/dL (8.6-10.3); Carbon Dioxide 16 mEq/L (23-29); Chloride 108 mEq/L (98-107); Glucose 216 mg/dL (70-105); Osmolality,Calculated 291 (280-300); Potassium 5.2 mEq/L (3.5-5.1); Sodium 137 mEq/L (136-145); eGFR For African Americans > 60 (> 60); eGFR For Non-African Americans > 60 (> 60)
[2019-05-26 01:00] LABS: Basophils % 0.3 %; Eosinophils # 0.1 K/mcL (0.0-0.6); Hematocrit 38.4 % (37.5-50.1); Hemoglobin 12.5 g/dL (12.9-16.9); Immature Granulocytes % 0.5 % (0-4); Lymphocytes # 1.6 K/mcL (0.6-4.6); Lymphocytes % 16.6 %; Mean Corpuscular HGB Conc 32.6 g/dL (31.6-35.5); Mean Corpuscular Hemoglobin 28.9 pg (28.0-33.3); Mean Corpuscular Volume 88.7 fL (83.0-100.0); Mean Platelet Volume 9.1 fL (9.4-12.4); Monocytes # 0.9 K/mcL (0.0-1.3); Monocytes % 9.5 %; Neutrophils # 6.8 K/mcL (1.6-8.9); Platelet Count 305 K/mcL (140-400); Red Blood Count 4.33 M/mcL (4.19-5.50); Red Cell Distribution Width 13.7 % (11.5-14.5); Segmented Neutrophils % 72.1 %; White Blood Count 9.4 K/mcL (4.3-11.1)
[2019-05-26 01:16] LABS: BUN/Creatinine Ratio 18 (6-26); Blood Urea Nitrogen 12 mg/dL (6-20); Calcium 8.5 mg/dL (8.6-10.3); Carbon Dioxide 22 mEq/L (23-29); Chloride 109 mEq/L (98-107); Chol/HDL Ratio 3.6 (0-4.9); Glucose 79 mg/dL (70-105); Magnesium 1.8 mg/dL (1.6-2.6); Osmolality,Calculated 287 (280-300); Potassium 3.9 mEq/L (3.5-5.1); Sodium 139 mEq/L (136-145); eGFR For African Americans > 60 (> 60); eGFR For Non-African Americans > 60 (> 60)
[2019-05-26] MEDS ORDERED: Insulin DETEMIR 100 UNIT/ML X5UNITS SQ SCH (02:15)
[2019-05-26] MEDS: 0.9 % Sodium Chloride 1,000 ML IVC SCH (02:22)
[2019-05-26] MEDS: *HR* Heparin 5,000 UNIT/ML VIAL SQ SCH ×3 (05:06→18:00)
[2019-05-26 05:31] LABS: BUN/Creatinine Ratio 17 (6-26); Blood Urea Nitrogen 11 mg/dL (6-20); Calcium 8.7 mg/dL (8.6-10.3); Carbon Dioxide 18 mEq/L (23-29); Chloride 104 mEq/L (98-107); Glucose 96 mg/dL (70-105); Osmolality,Calculated 287 (280-300); Sodium 139 mEq/L (136-145); eGFR For African Americans > 60 (> 60); eGFR For Non-African Americans > 60 (> 60)
[2019-05-26] MEDS ORDERED: D5% in Water 1,000 ML IVC PRN (08:43)
--- NOTE | 2019-05-26 09:07 | Consult Note ---
Date of Encounter: 05/26/19 Time of Encounter: 09:45 Assessment & Recommendation (1) Bipolar 1 disorder, depressed Current visit: No Status: Chronic Assessment & Recommendation: Patient continues to endorse suicidal ideations with a plan and would not contract for safety. As such he requires inpatient stabilization. His needs can best be met on the dual diagnosis unit which can facilitate both treatment of his mental health condition and his substance use disorder. There are several such facilities. Most recently he went one in [place]. There are also facilities in [place] including some [facility], [facility], [facility], [facility], and [facility]. He should remain With a sitter until placement is found. Continue his current psychiatric medications. History of Present Illness Requesting Physician: Jamal Haji DO Reason for consult: SI History of present illness: Mr. Lemus is a 33 year old male with history of diabetes, drug abuse who presents with suicidal ideation. Patient states that he wants to . He reports he has attempted suicide in the past. Denies any hallucinations. He reports drug abuse with methamphetamine and heroin. He states he generally feels unwell. He reports nausea and vomiting. Denies any fevers, chills, chest pain, abdominal pain. His blood sugars are elevated in the emergency room and he was admitted briefly to the medical floor to stabilize this. He is now medically stable. He reports ongoing suicidal ideations with a plan to overdose and depression. He would like treatment for this. CC: Jamal Haji DO Past Med Surg Social Fam HX - Past Medical History Medical history: diabetes, hepatitis, hyperlipidemia, hypertension, seizures, other - Past Psychiatric History Psychiatric history: Reports: bipolar, prior suicide attempt, previous psychiatric hospitalization Past psychiatric history details: He has numerous prior suicide attempts mostly by overdose or not caring for his diabetes. He has been in several psychiatric hospitals in the past including on [facility] and most recently at a dual diagnosis program in [place]. He has not followed up with outpatient linkage. Family psychiatric history: Yes Family Psychiatric History Details: Bipolar Family History of Suicide: None - Past Surgical History Surgical History: orthopedic, other - Social History Smoking Status: Current every day smoker Smokeless Tobacco Status: No Alcohol use: rarely Drug use: opiates, methamphetamine, IV Drug Use, prescription drug abuse - Family History Father Family Member Ethnicity: Non- Living Status: Hx Family Cardiac Disorders: Yes ([place]) Hx Family Endocrine Disorder: Yes ([place]) Mother Family Member Ethnicity: Non- Living Status: Still Living Sister Family Member Ethnicity: Non- Living Status: Still Living Medications & Allergies NALOXONE 4 MG Nasal [place] [Narcan] 4 mg NS AD #2 sprays 01/04/19 [Rx] Cyclobenzaprine [Flexeril] 10 mg PO HS 15 Days #15 tablet 05/24/19 [Rx] Gabapentin [Neurontin] 600 mg PO TID 30 Days #180 capsule 05/24/19 [Rx] Insulin ASPART [NovoLOG] See Protocol SQ TIDWM PRN #1 vial 05/24/19 [Rx] Insulin NPH Hum/Reg Insulin Hm [Novolin 70-30 100 Unit/ml Vial] 33 unit SQ QAM 30 Days #1 vial 05/24/19 [Rx] Phenytoin ER [Dilantin ER] 100 mg PO TID 30 Days #90 capsule 05/24/19 [Rx] Quetiapine Fumarate [Quetiapine Fumarate ER] 400 mg PO DAILY 30 Days #30 tab.er.24h 05/24/19 [Rx] Venlafaxine HCl [Effexor Xr] 225 mg PO DAILY 30 Days #90 cap.er.24h 05/24/19 [Rx] Allergy/AdvReac Type Severity Reaction Status Date / Time insulin glargine Allergy Blister Verified 03/23/19 23:42 [From Lantus] diphenhydramine AdvReac Intermediate See Verified 03/23/19 23:42 [From Benadryl] Comments Review of Systems ROS limited: due to patient condition (Not cooperative) Constitutional: Denies: fever Eyes: Denies: eye pain Ears, Nose, Throat: Denies: ear pain Cardiovascular: Denies: chest pain Respiratory: Denies: cough Gastrointestinal: Reports: abdominal pain Genitourinary male: Denies: urgency Musculoskeletal: Reports: joint pain Psychiatric: Reports: depression, suicidal ideation, anhedonia, hopelessness. Denies: homicidal ideation, auditory hallucinations, visual hallucinations Endocrine: Reports: fatigue Hematologic/Lymphatic: Denies: easy bleeding Allergic/Immunologic: Denies: facial swelling Psychiatry Exam - Constitutional Vitals: Temp Pulse Resp BP Pulse Ox 98.7 F 94 18 129/83 96 05/25/19 23:53 05/26/19 08:01 05/26/19 08:01 05/26/19 08:01 05/26/19 08:01 General appearance: disheveled - Musculoskeletal Gait: other (In bed) Station: slouched Strength & Tone: mild weakness - Psychiatric Patient Orientation: Yes Person, Yes Time, Yes Place, Yes Circumstance Level of alertness: Alert Behavior: uncooperative, withdrawn Psychomotor activity: Slowed Eye Contact: No Eye Contact Mood Description: Depressed Patient description of mood: Depressed Affect description: dysphoric Speech Volume: Soft/Quiet Speech pattern: impoverished Language & Vocabulary: consistent with education Thought Process: Linear, Goal Oriented Thought Content: Yes Suicidal ideation, No Homicidal ideation Perceptual Disturbances: No Auditory hallucinations, No Visual hallucinations Attention Span Ability: Capable of Focused Attention Memory Description: Grossly Intact Patient Reliability: Reliable Historian Fund of knowledge: Yes abstraction ability Intelligence Estimate: Average Judgment: Poor Insight: None Results - Drug Levels and Toxicology Drug Levels and Toxicology: Drug Levels and Toxicity 05/25/19 05/25/19 13:40 13:42 Urine Opiates Screen Negative Acetaminophen < 10 L Ur Barbiturates Screen Negative Ur Phencyclidine Scrn Negative Ur Amphetamines Screen Positive H U Benzodiazepines Scrn Negative Urine Cocaine Screen Negative U Marijuana (THC) Screen Negative Ethyl Alcohol < 10 Short CBC 05/26/19 05/25/19 Range/Units 00:45 13:40 WBC 9.4 10.4 (4.3-11.1) K/mcL Hgb 12.5 L 11.5 L (12.9-16.9) g/dL Hct 38.4 35.2 L (37.5-50.1) % Plt Count 305 244 (140-400) K/mcL Neutrophils # 6.8 8.5 (1.6-8.9) K/mcL BMP 05/26/19 05/26/19 05/25/19 Range/Units 04:43 00:45 21:26 Sodium 139 139 137 (136-145) mEq/L Potassium 4.0 3.9 5.2 H (3.5-5.1) mEq/L Chloride 104 109 H 108 H (98-107) mEq/L Carbon Dioxide 18 L 22 L 16 L (23-29) mEq/L BUN 11 12 15 (6-20) mg/dL Creatinine 0.64 L 0.68 L 0.74 (0.70-1.30) mg/dL Glucose 96 79 216 H (70-105) mg/dL Calcium 8.7 8.5 L 8.7 (8.6-10.3) mg/dL 05/25/19 05/25/19 Range/Units 17:34 13:40 Sodium 132 L 129 L (136-145) mEq/L Potassium 5.1 4.9 (3.5-5.1) mEq/L Chloride 95 L 89 L (98-107) mEq/L Carbon Dioxide 10 L* 16 L (23-29) mEq/L BUN 17 19 (6-20) mg/dL Creatinine 0.79 0.80 (0.70-1.30) mg/dL Glucose 479 H 532 H* (70-105) mg/dL Calcium 9.3 9.3 (8.6-10.3) mg/dL Urine 05/25/19 Range/Units 13:42 Urine Color Yellow (Yellow) Urine Clarity Clear (Clear) Urine pH 5.5 (5.0-8.0) pH Units Ur Specific [place] > 1.030 H (1.010-1.025) Urine Protein Negative (Neg-Trace) mg/dL Urine Glucose (UA) >=1000 H (Normal) mg/dL - Labs Labs: Laboratory Last Values WBC 9.4 K/mcL (4.3-11.1) 05/26/19 00:45 RBC 4.33 M/mcL (4.19-5.50) 05/26/19 00:45 Hgb 12.5 g/dL (12.9-16.9) L 05/26/19 00:45 Hct 38.4 % (37.5-50.1) 05/26/19 00:45 MCV 88.7 fL (83.0-100.0) 05/26/19 00:45 MCH 28.9 pg (28.0-33.3) 05/26/19 00:45 MCHC 32.6 g/dL (31.6-35.5) 05/26/19 00:45 RDW 13.7 % (11.5-14.5) 05/26/19 00:45 Plt Count 305 K/mcL (140-400) 05/26/19 00:45 MPV 9.1 fL (9.4-12.4) L 05/26/19 00:45 Immature Gran % 0.5 % (0-4) 05/26/19 00:45 Seg Neutrophils % 72.1 % 05/26/19 00:45 16.6 % 05/26/19 00:45 9.5 % 05/26/19 00:45 1.0 % 05/26/19 00:45 0.3 % 05/26/19 00:45 6.8 K/mcL (1.6-8.9) 05/26/19 00:45 1.6 K/mcL (0.6-4.6) 05/26/19 00:45 0.9 K/mcL (0.0-1.3) 05/26/19 00:45 0.1 K/mcL (0.0-0.6) 05/26/19 00:45 0.0 K/mcL (0.0-0.2) 05/26/19 00:45 VBG pH 7.35 pH Units (7.32-7.42) 05/25/19 16:33 VBG pCO2 32 mmHg (41-51) L 05/25/19 16:33 VBG pO2 112 mmHg (25-50) H 05/25/19 16:33 VBG HCO3 17 mEq/L (21-27) L 05/25/19 16:33 Sodium 139 mEq/L (136-145) 05/26/19 04:43 Potassium 4.0 mEq/L (3.5-5.1) 05/26/19 04:43 Chloride 104 mEq/L (98-107) 05/26/19 04:43 Carbon Dioxide 18 mEq/L (23-29) L 05/26/19 04:43 BUN 11 mg/dL (6-20) 05/26/19 04:43 0.64 mg/dL (0.70-1.30) L 05/26/19 04:43 Est GFR ( Amer) > 60 (> 60) 05/26/19 04:43 Est GFR (Non-Af Amer) > 60 (> 60) 05/26/19 04:43 17 (6-26) 05/26/19 04:43 Glucose 96 mg/dL (70-105) 05/26/19 04:43 POC Glucose 366 mg/dL (70-99) H 05/25/19 18:56 287 (280-300) 05/26/19 04:43 Calcium 8.7 mg/dL (8.6-10.3) 05/26/19 04:43 Magnesium 1.8 mg/dL (1.6-2.6) 05/26/19 00:45 Triglycerides 82 mg/dL (< 150) 05/26/19 00:45 Cholesterol 170 mg/dL (< 200) 05/26/19 00:45 LDL Cholesterol, Calc 107 mg/dL (0-99) H 05/26/19 00:45 VLDL Cholesterol, Calc 16 mg/dL (< 31) 05/26/19 00:45 47 mg/dL (40-59) 05/26/19 00:45 3.6 (0-4.9) 05/26/19 00:45 Beta-Hydroxybutyric Acd > 2.00 mmol/L (0.02-0.27) H 05/25/19 14:56 Yellow (Yellow) 05/25/19 13:42 Clear (Clear) 05/25/19 13:42 5.5 pH Units (5.0-8.0) 05/25/19 13:42 Ur Specific [place] > 1.030 (1.010-1.025) H 05/25/19 13:42 Negative mg/dL (Neg-Trace) 05/25/19 13:42 >=1000 mg/dL (Normal) H 05/25/19 13:42 80 mg/dL (Negative) H 05/25/19 13:42 Negative (Negative) 05/25/19 13:42 Negative (Negative) 05/25/19 13:42 Negative (Negative) 05/25/19 13:42 Normal mg/dL (Normal) 05/25/19 13:42 Ur Leukocyte Esterase Negative (Negative) 05/25/19 13:42 Salicylates < 2.5 mg/dL (15.0-30.0) L 05/25/19 13:40 Negative ng/mL (Gtlhqf=521) 05/25/19 13:42 Ur Buprenorphine Scrn Negative ng/mL (Cutoff=5) 05/25/19 13:42 Acetaminophen < 10 mcg/mL (10-20) L 05/25/19 13:40 Ur Barbiturates Screen Negative ng/mL (Fapoxc=977) 05/25/19 13:42 Ur Phencyclidine Scrn Negative ng/mL (Cutoff=25) 05/25/19 13:42 Ur Amphetamines Screen Positive ng/mL (Qzzqld=8048) H 05/25/19 13:42 U Benzodiazepines Scrn Negative ng/mL (Enkzod=015) 05/25/19 13:42 Negative ng/mL (Cutoff= 300) 05/25/19 13:42 U Marijuana (THC) Screen Negative ng/mL (Cutoff = 50) 05/25/19 13:42 Ur Drug Screen Interp See Below 05/25/19 13:42 Ethyl Alcohol < 10 mg/dL (Less than 10) 05/25/19 13:40 Consult Discharge Plan - Plan Referrals: NONE,PCP [Primary Care Provider] -
[2019-05-26] MEDS: Insulin LISPRO 300 UNITS/3 ML VIAL SQ SCH ×3 (11:57→22:10)
[2019-05-26] MEDS ORDERED: *HR* LORazepam 2 MG/ML VIAL IVP ONE (12:08)
--- NOTE | 2019-05-26 13:30 | Internal Med Progress Note ---
Hospitalist Progress Note - Encounter Date of Encounter: 05/26/19 Time of Encounter: 08:45 - Subjective Interval History: Mr Lemus is currently hospitalized for acute DKA as well as suicidal ideation. He remains high risk at this time. Mr Lemus is resting in bed. He won't participate in a lot of his care. Blood sugars controlled and DKA resolved. No fever or chills. No CP or SOB. No other acute issues at this time. Remains suicidal. - Exam Vitals: Temp Pulse Resp BP Pulse Ox 98.7 F 96 16 124/85 95 05/25/19 23:53 05/26/19 11:23 05/26/19 11:23 05/26/19 11:23 05/26/19 11:23 Exam: General: Alert and oriented. Evasive answering questions. Skin: Normal color,no rash H: Normocephalic. EENT: EOMI, Mucus membranes moist. Cardiovascular: Normal S1 & S2, no murmurs Pulse regular. Not tachycardic Lungs: Normal breath sounds, no wheezes or crackles. Abdomen: Soft, non-tender, Normal bowel sounds. Extremities: No deformity, no edema or tenderness, Neurological: Strength and sensation appear to be equal and intact bilaterally. Pulses: radial pulses normal +2. Rest of the physical exam is non contributory - Assessment and Plan (1) Suicidal ideation Current Visit: Yes Status: Acute Assessment and Plan: Pt continues to report suicidal thoughts. Appreciate psychiatry input. Will wait till Tuesday and plan consult to for placement. Psych recommends dual diagnosis facility. [place] slip completed today. (2) DKA (diabetic ketoacidoses) Current Visit: Yes Status: Resolved Assessment and Plan: DKA resolved. Place on home insulin and SSI. Pt medically clear for discharge with psych. (3) Seizure disorder Current Visit: No Status: Acute Assessment and Plan: No seizures noted. Will restart medications. (4) Drug abuse Current Visit: Yes Status: Acute Assessment and Plan: Psychiatry recommending dual diagnosis facility. (5) Methamphetamine abuse Current Visit: Yes Status: Acute Assessment and Plan: Amphetamine positive in urine. PRN ativan ordered. (6) Hepatitis C Current Visit: No Status: Chronic Assessment and Plan: Chronic issue (7) Tobacco abuse Current Visit: No Status: Chronic Assessment and Plan: Cessation counselling. - Time Spent with Patient Total time spent is greater than 50% in coordination of care (as documented) at patient's floor/unit and/or counseling patient: Internal Medicine: Result - Labs CBC & Chem 7: 05/26/19 00:45 05/26/19 04:43 Labs: Short CBC 05/25/19 05/26/19 Range/Units 13:40 00:45 WBC 10.4 9.4 (4.3-11.1) K/mcL Hgb 11.5 L 12.5 L (12.9-16.9) g/dL Hct 35.2 L 38.4 (37.5-50.1) % Plt Count 244 305 (140-400) K/mcL Neutrophils # 8.5 6.8 (1.6-8.9) K/mcL BMP 05/25/19 05/25/19 05/25/19 13:40 17:34 21:26 Sodium 129 L 132 L 137 Potassium 4.9 5.1 5.2 H Chloride 89 L 95 L 108 H Carbon Dioxide 16 L 10 L* 16 L BUN 19 17 15 Creatinine 0.80 0.79 0.74 Glucose 532 H* 479 H 216 H Calcium 9.3 9.3 8.7 05/26/19 05/26/19 00:45 04:43 Sodium 139 139 Potassium 3.9 4.0 Chloride 109 H 104 Carbon Dioxide 22 L 18 L BUN 12 11 Creatinine 0.68 L 0.64 L Glucose 79 96 Calcium 8.5 L 8.7 Urine 05/25/19 Range/Units 13:42 Urine Color Yellow (Yellow) Urine Clarity Clear (Clear) Urine pH 5.5 (5.0-8.0) pH Units Ur Specific [place] > 1.030 H (1.010-1.025) Urine Protein Negative (Neg-Trace) mg/dL Urine Glucose (UA) >=1000 H (Normal) mg/dL Consult Discharge Plan - Plan Referrals: NONE,PCP [Primary Care Provider] - (2) DKA (diabetic ketoacidoses) Qualifiers: Diabetes mellitus type: type 1 Diabetes mellitus complication detail: without coma Qualified Code(s): E10.10 - Type 1 diabetes mellitus with ketoacidosis without coma (6) Hepatitis C Qualifiers: Viral hepatitis chronicity: chronic Qualified Code(s): B18.2 - Chronic viral hepatitis C
[2019-05-26] MEDS ORDERED: Promethazine 12.5 MG in 0.9 % Sodium Chloride 50 ML IVPB PRN (13:41)
[2019-05-26] MEDS ORDERED: *HR* LORazepam 2 MG/ML VIAL IVP PRN (13:41)
[2019-05-26] MEDS: Insulin NPH/REG 70/30 100 UNIT/ML (x5UNIT) SQ SCH (18:00)
[2019-05-27] MEDS: *HR* Heparin 5,000 UNIT/ML VIAL SQ SCH ×2 (05:27→16:49)
[2019-05-27] MEDS: Insulin NPH/REG 70/30 100 UNIT/ML (x5UNIT) SQ SCH ×2 (08:45→18:03)
[2019-05-27] MEDS: Insulin LISPRO 300 UNITS/3 ML VIAL SQ SCH ×4 (08:45→20:52)
--- NOTE | 2019-05-27 08:50 | Internal Med Progress Note ---
Hospitalist Progress Note - Encounter Date of Encounter: 05/27/19 Time of Encounter: 08:40 - Subjective Interval History: Mr Lemus is currently hospitalized for acute DKA and suicidal ideation. He remains moderate to high risk due to potential for worsening clinical status. Mr Lemus refused labs this AM and continues to refuse. BS 241 now. No fever or chills. No nausea at this time. No CP or SOB or any other specific complaints. Still has sitter present. - Exam Vitals: Temp Pulse Resp BP Pulse Ox 98.7 F 85 18 125/66 94 05/25/19 23:53 05/27/19 04:30 05/27/19 08:26 05/27/19 08:26 05/27/19 08:26 Exam: General: Alert and oriented. Polite and interactive today. Comfortable. Skin: Normal color,no rash H: Normocephalic. EENT: EOMI, Mucus membranes moist. Cardiovascular: Normal S1 & S2, no murmurs Pulse regular. Lungs: Normal breath sounds, no wheezes or crackles. Fair effort. Abdomen: Soft, non-tender, Extremities: No deformity, no edema Neurological: Strength and sensation appear to be equal and intact bilaterally. Moves all extremities. Pulses: radial pulses normal +2. Rest of the physical exam is non contributory - Assessment and Plan (1) DKA (diabetic ketoacidoses) Current Visit: Yes Status: Resolved Assessment and Plan: DKA resolved. BS elevated but getting coverage. Refuses lab today - agrees to have done tomorrow. Transfer out of . (2) Suicidal ideation Current Visit: Yes Status: Acute Assessment and Plan: Suicidal ideation persists today. Appreciate psychiatry input. Awaiting social work for help with discharge planning. (3) Seizure disorder Current Visit: No Status: Chronic Assessment and Plan: No seizures noted. PO home meds ordered. (4) Drug abuse Current Visit: Yes Status: Chronic Assessment and Plan: Will await social work input. Psychiatry recommending dual diagnosis unit at discharge. (5) Methamphetamine abuse Current Visit: Yes Status: Chronic Assessment and Plan: Positive in urine. On PRN meds. (6) Hepatitis C Current Visit: No Status: Chronic Assessment and Plan: Chronic issue (7) Tobacco abuse Current Visit: No Status: Chronic Assessment and Plan: Cessation counselling. - Time Spent with Patient Total time spent is greater than 50% in coordination of care (as documented) at patient's floor/unit and/or counseling patient: Internal Medicine: Result - Labs CBC & Chem 7: 05/26/19 00:45 05/26/19 04:43 Consult Discharge Plan - Plan Referrals: NONE,PCP [Primary Care Provider] - ____ (1) DKA (diabetic ketoacidoses) Qualifiers: Diabetes mellitus type: type 1 Diabetes mellitus complication detail: without coma Qualified Code(s): E10.10 - Type 1 diabetes mellitus with ketoacidosis without coma (6) Hepatitis C Qualifiers: Viral hepatitis chronicity: chronic Qualified Code(s): B18.2 - Chronic viral hepatitis C
[2019-05-27] MEDS: Venlafaxine XR (24 HR) 75 MG CAP.ER.24H PO SCH (10:08)
[2019-05-27] MEDS: Gabapentin 300 MG CAPSULE PO SCH ×3 (10:08→20:57)
[2019-05-28] MEDS: *HR* Heparin 5,000 UNIT/ML VIAL SQ SCH (02:35)
[2019-05-28 02:38] LABS: Hematocrit 38.3 % (37.5-50.1); Hemoglobin 12.8 g/dL (12.9-16.9); Mean Corpuscular HGB Conc 33.4 g/dL (31.6-35.5); Mean Corpuscular Hemoglobin 28.6 pg (28.0-33.3); Mean Corpuscular Volume 85.7 fL (83.0-100.0); Mean Platelet Volume 9.3 fL (9.4-12.4); Platelet Count 314 K/mcL (140-400); Red Blood Count 4.47 M/mcL (4.19-5.50); Red Cell Distribution Width 13.7 % (11.5-14.5); White Blood Count 5.9 K/mcL (4.3-11.1)
[2019-05-28 03:00] LABS: Alanine Aminotransferase 27 Units/L (7-52); Albumin 3.6 g/dL (3.5-5.7); Albumin/Globulin Ratio 1.4 (1.1-2.2); Alkaline Phosphatase 89 Units/L (34-104); Aspartate Amino Transferase 28 Units/L (13-39); BUN/Creatinine Ratio 30 (6-26); Bilirubin,Total 0.3 mg/dL (0.3-1.0); Blood Urea Nitrogen 16 mg/dL (6-20); Carbon Dioxide 28 mEq/L (23-29); Chloride 102 mEq/L (98-107); Globulin 2.6 g/dL (2.4-3.5); Glucose 165 mg/dL (70-105); Magnesium 1.6 mg/dL (1.6-2.6); Osmolality,Calculated 291 (280-300); Phosphorous 4.4 mg/dL (2.7-4.5); Potassium 3.4 mEq/L (3.5-5.1); Sodium 138 mEq/L (136-145); Total Protein 6.2 g/dL (6.4-8.9); eGFR For African Americans > 60 (> 60); eGFR For Non-African Americans > 60 (> 60)
[2019-05-28] MEDS: Gabapentin 300 MG CAPSULE PO SCH ×2 (09:25→15:12)
[2019-05-28] MEDS: Venlafaxine XR (24 HR) 75 MG CAP.ER.24H PO SCH (09:25)
[2019-05-28] MEDS: Insulin LISPRO 300 UNITS/3 ML VIAL SQ SCH ×3 (09:26→13:42)
[2019-05-28] MEDS: Insulin NPH/REG 70/30 100 UNIT/ML (x5UNIT) SQ SCH (09:29)
[2019-05-28] MEDS ORDERED: Magnesium Oxide 400 MG TABLET PO ONE (10:02)
[2019-05-28 13:08] VITALS: BP 121/86
--- NOTE | 2019-05-28 13:29 | Psychiatry Progress Note ---
Date of Encounter: 05/28/19 Time of Encounter: 13:24 Subjective Interval history: On eval today client is in a good mood. He is denying any further SI, intent, or plan. Client believes his SI was due to his blood sugars being elevated and that he is feeling much better now that his glucose is under better control. Client states he typically lives alone but that a friend of his is coming to stay with him so he is now motivated for discharge. Denies wanting inpatient treatment. On exam he is presenting as bright, reactive, and future oriented. No evidence of psychosis or major mood disturbance. Alert and oriented. Review of Systems Constitutional: Denies: fever, chills, weakness, weight change Eyes: Denies: eye pain, vision change Ears, Nose, Throat: Denies: ear pain, throat pain, dental pain, hearing loss, congestion Cardiovascular: Denies: chest pain, palpitations, dyspnea on exertion Respiratory: Denies: cough, dyspnea, wheezes Gastrointestinal: Denies: abdominal pain, nausea, vomiting, diarrhea, constipation Musculoskeletal: Denies: joint swelling, joint pain Neurological: Denies: headache, weakness, numbness, memory loss Psychiatric: Reports: depression, suicidal ideation, anhedonia, hopelessness. Denies: homicidal ideation, auditory hallucinations, visual hallucinations Results - Vital Signs Vital Signs: Temp Pulse Resp BP Pulse Ox 97.4 F L 86 16 121/86 98 05/28/19 13:00 05/28/19 13:00 05/28/19 13:00 05/28/19 13:00 05/28/19 11:29 - Labs Labs: Laboratory Results - last 24 hr 05/27/19 05/27/19 05/27/19 08:11 12:06 16:44 WBC RBC Hgb Hct MCV MCH MCHC RDW Plt Count MPV Sodium Potassium Chloride Carbon Dioxide BUN Creatinine Est GFR ( Amer) Est GFR (Non-Af Amer) BUN/Creatinine Ratio Glucose POC Glucose 241 H 267 H 465 H* Calculated Osmolality Calcium Phosphorus Magnesium Total Bilirubin AST ALT Alkaline Phosphatase Serum Total Protein Albumin Globulin Albumin/Globulin Ratio 05/27/19 05/27/19 05/27/19 16:46 17:57 20:14 WBC RBC Hgb Hct MCV MCH MCHC RDW Plt Count MPV Sodium Potassium Chloride Carbon Dioxide BUN Creatinine Est GFR ( Amer) Est GFR (Non-Af Amer) BUN/Creatinine Ratio Glucose POC Glucose 437 H* 292 H 115 H Calculated Osmolality Calcium Phosphorus Magnesium Total Bilirubin AST ALT Alkaline Phosphatase Serum Total Protein Albumin Globulin Albumin/Globulin Ratio 05/28/19 05/28/19 02:09 02:09 WBC 5.9 RBC 4.47 Hgb 12.8 L Hct 38.3 MCV 85.7 MCH 28.6 MCHC 33.4 RDW 13.7 Plt Count 314 MPV 9.3 L Sodium 138 Potassium 3.4 L Chloride 102 Carbon Dioxide 28 BUN 16 Creatinine 0.54 L Est GFR ( Amer) > 60 Est GFR (Non-Af Amer) > 60 BUN/Creatinine Ratio 30 H Glucose 165 H POC Glucose Calculated Osmolality 291 Calcium 9.0 Phosphorus 4.4 Magnesium 1.6 Total Bilirubin 0.3 AST 28 ALT 27 Alkaline Phosphatase 89 Serum Total Protein 6.2 L Albumin 3.6 Globulin 2.6 Albumin/Globulin Ratio 1.4 Assessment and Plan (1) Substance induced mood disorder Current visit: Yes Status: Acute Additional Plan: Client has received multiple mental health diagnoses over the years but suspect his primary diagnosis is Substance Induced Mood Disorder along with Antisocial Personality Disorder. Client is chronically noncompliant when it comes to treating his physical and mental health in the community. He also routinely abuses recreational drugs with his current drug of choice being methamphetamines. If admitted, continue to recommend a dual diagnosis program that places a heavy emphasis on alcohol and drug treatment. However, client is now denying the need for inpatient treatment. He is denying any further SI, intent, or plan. Historically, he has always presented to the ER for a more intensive level of care when he feels he needs it and states he would do so again. Would benefit from inpatient treatment but do not think he meets pink slip criteria if he is no longer wanting to go. Given his high utilization of hospital resources it would be nice to try and get him off of drugs so that he better manages his Diabetes. However, do not think he can be forced at this point and he can be discharged home if he declines to go to a rehab or dual diagnosis program. (2) Mood disorder Current visit: No Status: Chronic Consult Discharge Plan - Plan Referrals: NONE,PCP [Primary Care Provider] - Psychiatry Exam - Constitutional Vitals: Temp Pulse Resp BP Pulse Ox 97.4 F L 86 16 121/86 98 05/28/19 13:00 05/28/19 13:00 05/28/19 13:00 05/28/19 13:00 05/28/19 11:29 General appearance: age & developmentally appropriate, well-groomed, well- nourished - Musculoskeletal Gait: normal Station: relaxed Strength & Tone: normal for patient - Psychiatric Patient Orientation: Yes Person, Yes Time, Yes Place Level of alertness: Alert Behavior: calm, cooperative Psychomotor activity: Normal Eye Contact: Maintains Eye Contact Mood Description: Euthymic/stable Affect description: congruent with mood, full range Speech Volume: Normal Speech pattern: normal rate, normal rhythm, normal tone, fluent, spontaneous Language & Vocabulary: consistent with education Thought Process: Linear, Goal Oriented Thought Content: No Suicidal ideation, No Homicidal ideation, No Overt delusions Perceptual Disturbances: No Auditory hallucinations, No Visual hallucinations Attention Span Ability: Capable of Focused Attention Memory Description: Grossly Intact Patient Reliability: Questionable Historian Fund of knowledge: Yes abstraction ability, Yes aware of current events Intelligence Estimate: Average Judgment: Poor Insight: Partial
--- NOTE | 2019-05-28 14:57 | Discharge Summary ---
- NOTES TO OUTPATIENT PROVIDER Notes to Outpatient Provider: Admitted for DKA and suicidal ideations. Evaluated by inpatient psychiatry whom initially recommended a mental health facility that could help treat him for both his mental health and substance use disorder, along with his suicidal ideations. Upon discharge the patient denied suicidal ideations and psychiatry not recommend the patient had to be discharged to facility but if he should want to be discharged home. The rehab facility had been set up and he was approved however on discharge he adamantly refused to go to the rehab facility. Orders not resulted at time of discharge: Pending orders 05/25/19 17:43 EKG [ECG 12 lead ECG] [ECG] Stat Date of Encounter: 05/28/19 Time of Encounter: 11:00 - Discharge Diagnosis (1) DKA (diabetic ketoacidoses) Priority: Primary Status: Resolved Qualifiers: Diabetes mellitus type: type 1 Diabetes mellitus complication detail: without coma Qualified Code(s): E10.10 - Type 1 diabetes mellitus with ketoacidosis without coma (2) Hepatitis C Priority: Secondary Status: Chronic Qualifiers: Viral hepatitis chronicity: chronic Qualified Code(s): B18.2 - Chronic viral hepatitis C (3) Suicidal ideation Priority: Secondary Status: Acute (4) Tobacco abuse Priority: Secondary Status: Chronic (5) Seizure disorder Priority: Secondary Status: Chronic (6) Methamphetamine abuse Priority: Secondary Status: Chronic (7) Drug abuse Priority: Secondary Status: Chronic Hospital course: Mr. Lemus is a 33 year old male with history of diabetes, drug abuse who presented with suicidal ideation. Patient stated that he wanted to . He reported he attempted suicide in the past. Denied any hallucinations. He reported drug abuse with methamphetamine and heroin. He stated he generally feels unwell. He admitted nausea and vomiting. Denied any fevers, chills, chest pain, abdominal pain. He stated nothing seems to make his symptoms better or worse. He had not been compliant with this insulin. He has admitted for diabetic ketoacidosis. Bicarb was as low as 10. Glucose and admission 532. Beta hydroxybutyric acid >2. Patient was started on insulin drip and fluid resuscitation per DKA protocol. Evaluated by inpatient psychiatry whom initially recommended a dual diagnosis mental health facility that could help treat him for both his mental health and substance use disorder, along with his suicidal ideations. Upon discharge the patient denied suicidal ideations and psychiatry not recommend the patient had to be discharged to facility but if he should want to be discharged home. The rehab facility had been set up and he was approved however on discharge he adamantly refused to go to the rehab facility. The patient stated that he would be compliant with his insulin regimen. It was strongly encouraged at the patient go to the rehab facility as it had been set up and he was approved and ready to go. The patient was very adamant that he would not go to the facility. He denied suicidal and homicidal ideations. He denied fever, chills, chest pain, shortness of breath. He is recommended to follow up with his primary care provider. He was set up with ref erral to the outpatient side of [facility] office. He was instructed to call the crisis hotline and come back to the ED should he develop suicidal ideations. He was alert and oriented times 3 and stated a clear understanding the treatment plan. Discharge discussed with: patient, nurse, social work, case management - Time Spent with Patient Total time spent providing and/or coordinating discharge services: Time spent: Greater than 30 minutes - Discharge Medications Prescriptions: Continued Gabapentin [Neurontin] 600 mg PO TID 30 Days #180 capsule Phenytoin ER [Dilantin ER] 100 mg PO TID 30 Days #90 capsule Venlafaxine HCl [Effexor Xr] 225 mg PO DAILY 30 Days #90 cap.er.24h Quetiapine Fumarate [Quetiapine Fumarate ER] 400 mg PO DAILY 30 Days #30 tab.er.24h Insulin NPH Hum/Reg Insulin Hm [Novolin 70-30 100 Unit/ml Vial] 33 unit SQ BID #1 vial Insulin ASPART [NovoLOG] See Protocol SQ TIDWM PRN #1 vial PRN Reason: SLIDING SCALE Discontinued Cyclobenzaprine [Flexeril] 10 mg PO HS 15 Days #15 tablet Home Medications: Gabapentin [Neurontin] 600 mg PO TID 30 Days #180 capsule 05/24/19 [Rx] Phenytoin ER [Dilantin ER] 100 mg PO TID 30 Days #90 capsule 05/24/19 [Rx] Quetiapine Fumarate [Quetiapine Fumarate ER] 400 mg PO DAILY 30 Days #30 tab.er.24h 05/24/19 [Rx] Venlafaxine HCl [Effexor Xr] 225 mg PO DAILY 30 Days #90 cap.er.24h 05/24/19 [Rx] Insulin ASPART [NovoLOG] See Protocol SQ TIDWM PRN #1 vial 05/28/19 [Rx] Insulin NPH Hum/Reg Insulin Hm [Novolin 70-30 100 Unit/ml Vial] 33 unit SQ BID #1 vial 05/28/19 [Rx] Allergies/Adverse Reactions: Allergy/AdvReac Type Severity Reaction Status Date / Time insulin glargine Allergy Blister Verified 03/23/19 23:42 [From Lantus] diphenhydramine AdvReac Intermediate See Verified 03/23/19 23:42 [From Benadryl] Comments Date of admission: 05/25/19 20:17 Primary care physician: PCP NONE Consults: 05/26/19 08:44 Consult to Psychiatry [CONS] Routine Consulting Provider: Psychiatry Elana Reason consult: Sitter/1:1 Other reason and/or additional details: Suicidal ideation [place] initiated date and time: 05/26/2019 0900 Time Notified: 08:45 Call Completed: Yes 05/28/19 10:01 Consult to Medical Collections Specialist [CONS] Routine Reason for SW Consult: placement. see psych note for details on where to recommend Discharging clinician: Jamal Haji Anticipated date of discharge: 05/28/19 - Constitutional Vitals: Temp Pulse Resp BP Pulse Ox 97.4 F L 86 16 121/86 98 05/28/19 13:00 05/28/19 13:00 05/28/19 13:00 05/28/19 13:00 05/28/19 11:29 General appearance: Present: A&O X 3 Exam: Gen.: Vitals noted. No acute distress. AAOx3 HEENT: oropharynx clear, Normocephalic, atraumatic Cardiac: RRR, no murmur, +S1/S2 Pulmonary: CTA bilaterally, no wheezes, rales or rhonchi, equal chest expansion Abdomen: soft, nontender, Bowel sounds noted, no guarding MSK: no joint swelling noted Extremities: no BLE edema, nontender calf, no cyanosis or clubbing Neuro: A&Ox3, moves all extremities, no focal deficits Psych: Appropriate mood and behavior - Patient Status Disposition: Home, Self-Care Condition: Good Functional capacity at discharge: independent ambulation Overall status at discharge: patient is back to baseline - Discharge Instructions Follow Up With: William Coughlin DO [Resident] - 05/29/19 10:00 am [facility] [Outside] Additional Instructions: - Follow up with her primary care provider in one week -Follow-up with a psychiatrist in 1 to 2 weeks -Continue to take your insulin -Return to hospital and call crisis hotline should you develop suicidal ideations - Diet and Activity Activity: resume usual activities as tolerated Diet: diabetic diet
--- NOTE | 2019-05-29 09:45 | Electrocardiograph Report ---
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
== END 2019-05-28 16:34 | disposition home or self-care (01) | DRG 420 ==
LOC: EMEROOARM 12:46 → 2NNU 12:46 → OBSVTOIN 20:17 → SUATTDRO 20:17 → 2NNU 21:38
PROVIDERS: ADMIT Internal Medicine Nephrology; ATTEND Internal Medicine

== ENCOUNTER 2019-06-03 23:50 | Observation (INO) ==
--- NOTE | 2019-06-04 00:09 | Emergency Department Note ---
Disposition Clinical Impression: DKA (diabetic ketoacidoses) Qualifiers: Diabetes mellitus type: other specified (including [place]) Diabetes mellitus complication detail: without coma Qualified Code(s): E13.10 - Other specified diabetes mellitus with ketoacidosis without coma Disposition: Admitted As Inpatient Condition: Fair Time of Disposition: 01:56 General Adult HPI - General Stated complaint: hyperglycemia Time Seen by Provider: 06/04/19 00:03 Source: patient, EMS Mode of arrival: EMS Limitations: no limitations Nursing Notes Reviewed: Yes Vital Signs Reviewed: Yes - History of Present Illness HPI Narrative: 33-year-old male that presents to the department after being picked up by EMS after law enforcement alerted them that he was downtown on the [employer] steps. Patient is well-known to the department, has had multiple admissions for DKA. Patient states that he is trying to "get himself together" but is having some d ifficulty with jean-baptiste flow, and has been unable to maintain an insulin regimen. He is also complaining of an infection in his foot that has been treated with multiple antibiotics but has not yet resolved. Patient also states that he has been having some troubles with friends in town as well as housing security. Patient speaks with pressured speech and is difficult to redirect. - Related Data Previous Rx's Medication Instructions Recorded Gabapentin [Neurontin] 600 mg PO TID 30 Days #180 capsule 05/24/19 Phenytoin ER [Dilantin ER] 100 mg PO TID 30 Days #90 capsule 05/24/19 Quetiapine Fumarate [Quetiapine 400 mg PO DAILY 30 Days #30 05/24/19 Fumarate ER] tab.er.24h Venlafaxine HCl [Effexor Xr] 225 mg PO DAILY 30 Days #90 05/24/19 cap.er.24h Insulin ASPART [NovoLOG] See Protocol SQ TIDWM PRN #1 vial 05/28/19 Insulin NPH Hum/Reg Insulin Hm 33 unit SQ BID #1 vial 05/28/19 [Novolin 70-30 100 Unit/ml Vial] Allergies Allergy/AdvReac Type Severity Reaction Status Date / Time insulin glargine Allergy Blister Verified 03/23/19 23:42 [From Lantus] diphenhydramine AdvReac Intermediate See Verified 03/23/19 23:42 [From Benadryl] Comments Limitations: ROS unobtainable due to patients medical condition Past Medical History - Past Medical History Attestation: Yes The following information was validated with the patient. Medical history: Reports: diabetes, hepatitis, hyperlipidemia, hypertension, seizures, other Surgical history: Reports: orthopedic, other Psychiatric history: Reports: bipolar, prior suicide attempt, previous psychiatric hospitalization - Social History Smoking Status: Current every day smoker Smokeless Tobacco Status: No Alcohol use: Reports: rarely Drug use: Reports: opiates, methamphetamine, IV Drug Use, prescription drug abuse Physical Exam General: A&O x 3. No acute distress. Thin male, disheveled. Head: atraumatic, normocephalic. ENT: No conjunctival injection, no scleral icterus. PERRLA. EOMI. Oropharynx non- erythematous. mucous membranes tacky. Neuro: No focal deficits, no speech deficit, no facial droop, BUE/BLE Str 5/5. Pulm: Lungs CTAB A/P. No wheezes, rales, ronchi. Cardio: RRR no m/r/g. Chest not tender to palpation. Abd: Soft, non-distended. Normoactive bowel sounds. Non-tender to palpation. No guarding. Non rigid. Extremities: Radial pulses 2+ [place], dorsalis pedis/posterior tibialis 2+ [place]. No LE edema. No cyanosis, clubbing. Feet inspected for infections, no broken skin exists, and feet look to be free from injury at this time. Skin: warm, dry, intact. No rashes. Psych: Pressured speech. Difficult to redirect. Appears to be anxious. - General Limitations: altered mental status General appearance: appears intoxicated - Head Head exam: atraumatic, normocephalic Course Vital Signs Temperature 98.3 F 06/03/19 23:52 Pulse Rate 113 06/03/19 23:52 Respiratory Rate 18 06/03/19 23:52 Blood Pressure 165/100 06/03/19 23:52 O2 Sat by Pulse Oximetry 100 06/03/19 23:52 Temperature 97.7 F 06/04/19 02:38 Pulse Rate 99 06/04/19 02:38 Respiratory Rate 20 06/04/19 02:38 Blood Pressure 164/92 06/04/19 02:38 O2 Sat by Pulse Oximetry 98 06/04/19 02:38 Oxygen Delivery Oxygen Delivery Room Air Medical Decision Making - [facility] Narrative Medical decision making narrative: Patient's initial bedside glucose was read as "high", and basic metabolic panel revealed his initial glucose to be in excess of 700. Initial potassium was greater than 4.5, so an insulin drip was initiated. Patient was given 2 L of fluids while in the department. His EKG did not show any signs concerning for peaked T waves, or prolongation of the QRS. Patient was awake and alert, alth ough conversing with pressured speech during his course in the emergency department. His vitals were stable. He was complaining of being thirsty, however he was made nothing by mouth and given IV hydration. Patient was admitted to the hospitalist Dr. Montoya for DKA. She agreed to accept the nury ent to her service. Patient remained stable while in the department. It was explained to the patient that he would need to be admitted for further workup and treatment. Patient stated that he was in agreement with the plan. - Medical Records Medical records reviewed: Yes I reviewed the patient's medical records. - Lab Data Lab results reviewed: Yes I reviewed the patient's lab results. Result diagrams: 06/04/19 00:25 06/04/19 00:25 Lab Results 06/04/19 06/04/19 06/04/19 Range/Units 00:25 00:25 00:25 WBC 6.6 (4.3-11.1) K/mcL RBC 3.95 L (4.19-5.50) M/mcL Hgb 11.6 L (12.9-16.9) g/dL Hct 34.9 L (37.5-50.1) % MCV 88.4 (83.0-100.0) fL MCH 29.4 (28.0-33.3) pg MCHC 33.2 (31.6-35.5) g/dL RDW 13.9 (11.5-14.5) % Plt Count 332 (140-400) K/mcL MPV 10.0 (9.4-12.4) fL Immature Gran % 0.3 (0-4) % Seg Neutrophils % 72.4 % Lymphocytes % 16.8 % Monocytes % 9.4 % Eosinophils % 0.5 % Basophils % 0.6 % Neutrophils # 4.8 (1.6-8.9) K/mcL Lymphocytes # 1.1 (0.6-4.6) K/mcL Monocytes # 0.6 (0.0-1.3) K/mcL Eosinophils # 0.0 (0.0-0.6) K/mcL Basophils # 0.0 (0.0-0.2) K/mcL VBG pH (7.32-7.42) pH Units VBG pCO2 (41-51) mmHg VBG pO2 (25-50) mmHg VBG HCO3 (21-27) mEq/L Sodium 127 L (136-145) mEq/L Potassium 4.9 (3.5-5.1) mEq/L Chloride 89 L (98-107) mEq/L Carbon Dioxide 18 L (23-29) mEq/L BUN 20 (6-20) mg/dL Creatinine 1.05 (0.70-1.30) mg/dL Est GFR ( Amer) > 60 (> 60) Est GFR (Non-Af Amer) > 60 (> 60) BUN/Creatinine Ratio 19 (6-26) Glucose 774 H* (70-105) mg/dL Calculated Osmolality 304 H (280-300) Lactic Acid (0.5-2.2) mmol/L Calcium 9.5 (8.6-10.3) mg/dL Phosphorus 3.3 (2.7-4.5) mg/dL Magnesium 2.2 (1.6-2.6) mg/dL Troponin I < 0.03 (< 0.04) ng/mL Beta-Hydroxybutyric Acd > 2.00 H (0.02-0.27) mmol/L Urine Color (Yellow) Urine Clarity (Clear) Urine pH (5.0-8.0) pH Units Ur Specific [place] (1.010-1.025) Urine Protein (Neg-Trace) mg/dL Urine Glucose (UA) (Normal) mg/dL Urine Ketones (Negative) mg/dL Urine Blood (Negative) Urine Nitrite (Negative) Urine Bilirubin (Negative) Urine Urobilinogen (Normal) mg/dL Ur Leukocyte Esterase (Negative) Ur Culture Indicated? (NO) 06/04/19 06/04/19 06/04/19 Range/Units 00:25 00:38 01:00 WBC (4.3-11.1) K/mcL RBC (4.19-5.50) M/mcL Hgb (12.9-16.9) g/dL Hct (37.5-50.1) % MCV (83.0-100.0) fL MCH (28.0-33.3) pg MCHC (31.6-35.5) g/dL RDW (11.5-14.5) % Plt Count (140-400) K/mcL MPV (9.4-12.4) fL Immature Gran % (0-4) % Seg Neutrophils % % Lymphocytes % % Monocytes % % Eosinophils % % Basophils % % Neutrophils # (1.6-8.9) K/mcL Lymphocytes # (0.6-4.6) K/mcL Monocytes # (0.0-1.3) K/mcL Eosinophils # (0.0-0.6) K/mcL Basophils # (0.0-0.2) K/mcL VBG pH 7.46 H (7.32-7.42) pH Units VBG pCO2 25 L (41-51) mmHg VBG pO2 118 H (25-50) mmHg VBG HCO3 18 L (21-27) mEq/L Sodium (136-145) mEq/L Potassium (3.5-5.1) mEq/L Chloride (98-107) mEq/L Carbon Dioxide (23-29) mEq/L BUN (6-20) mg/dL Creatinine (0.70-1.30) mg/dL Est GFR ( Amer) (> 60) Est GFR (Non-Af Amer) (> 60) BUN/Creatinine Ratio (6-26) Glucose (70-105) mg/dL Calculated Osmolality (280-300) Lactic Acid 1.4 (0.5-2.2) mmol/L Calcium (8.6-10.3) mg/dL Phosphorus (2.7-4.5) mg/dL Magnesium (1.6-2.6) mg/dL Troponin I (< 0.04) ng/mL Beta-Hydroxybutyric Acd (0.02-0.27) mmol/L Urine Color Yellow (Yellow) Urine Clarity Clear (Clear) Urine pH 6.0 (5.0-8.0) pH Units Ur Specific [place] 1.029 H (1.010-1.025) Urine Protein Negative (Neg-Trace) mg/dL Urine Glucose (UA) >=1000 H (Normal) mg/dL Urine Ketones 40 H (Negative) mg/dL Urine Blood Negative (Negative) Urine Nitrite Negative (Negative) Urine Bilirubin Negative (Negative) Urine Urobilinogen Normal (Normal) mg/dL Ur Leukocyte Esterase Negative (Negative) Ur Culture Indicated? NO (NO) - Radiology Data Radiology results reviewed: Yes I reviewed the patient's radiology results. Chest X-Ray 06/04/19 00:04 IMPRESSION: 1. No radiographic finding to account for patient's chest pain. D/ / Alexander Dowling MD / Alexander Dowling MD Interpreting Provider: Alexander Dowling MD - EKG Data EKG #1 EKG attestation: Yes I reviewed and interpreted this EKG. EKG results narrative: Heart rate 97, rhythm sinus, axis normal. Intervals within normal limits. No clinically significant ST segment elevations Noted. No old EKG available for comparison.
[2019-06-04 00:37] LABS: Basophils % 0.6 %; Eosinophils % 0.5 %; Hematocrit 34.9 % (37.5-50.1); Hemoglobin 11.6 g/dL (12.9-16.9); Immature Granulocytes % 0.3 % (0-4); Lymphocytes # 1.1 K/mcL (0.6-4.6); Lymphocytes % 16.8 %; Mean Corpuscular HGB Conc 33.2 g/dL (31.6-35.5); Mean Corpuscular Hemoglobin 29.4 pg (28.0-33.3); Mean Corpuscular Volume 88.4 fL (83.0-100.0); Monocytes # 0.6 K/mcL (0.0-1.3); Monocytes % 9.4 %; Neutrophils # 4.8 K/mcL (1.6-8.9); Platelet Count 332 K/mcL (140-400); Red Blood Count 3.95 M/mcL (4.19-5.50); Red Cell Distribution Width 13.9 % (11.5-14.5); Segmented Neutrophils % 72.4 %; White Blood Count 6.6 K/mcL (4.3-11.1)
[2019-06-04] MEDS: 0.9 % Sodium Chloride 1,000 ML IVC SCH ×2 (00:37→01:24)
[2019-06-04 00:42] LABS: VBG HCO3 18 mEq/L (21-27); VBG PCO2 25 mmHg (41-51); VBG PH 7.46 pH Units (7.32-7.42); VBG PO2 118 mmHg (25-50)
--- NOTE | 2019-06-04 00:51 | Emergency Department Note ---
Disposition Clinical Impression: DKA (diabetic ketoacidoses) Qualifiers: Diabetes mellitus type: other specified (including KENYATTA) Diabetes mellitus complication detail: without coma Qualified Code(s): E13.10 - Other specified diabetes mellitus with ketoacidosis without coma Disposition: Admitted As Inpatient Condition: Fair Time of Disposition: 01:56 General Adult HPI - General Chief complaint: ED General Medical Stated complaint: hyperglycemia Time Seen by Provider: 06/04/19 00:03 Source: patient, EMS Mode of arrival: EMS Limitations: no limitations - History of Present Illness Pain Scale: 0 - Related Data Previous Rx's Medication Instructions Recorded Gabapentin [Neurontin] 600 mg PO TID 30 Days #180 capsule 05/24/19 Phenytoin ER [Dilantin ER] 100 mg PO TID 30 Days #90 capsule 05/24/19 Quetiapine Fumarate [Quetiapine 400 mg PO DAILY 30 Days #30 05/24/19 Fumarate ER] tab.er.24h Venlafaxine HCl [Effexor Xr] 225 mg PO DAILY 30 Days #90 05/24/19 cap.er.24h Insulin ASPART [NovoLOG] See Protocol SQ TIDWM PRN #1 vial 05/28/19 Insulin NPH Hum/Reg Insulin Hm 33 unit SQ BID #1 vial 05/28/19 [Novolin 70-30 100 Unit/ml Vial] Allergies Allergy/AdvReac Type Severity Reaction Status Date / Time insulin glargine Allergy Blister Verified 03/23/19 23:42 [From Lantus] diphenhydramine AdvReac Intermediate See Verified 03/23/19 23:42 [From Benadryl] Comments Past Medical History - Past Medical History Medical history: Reports: diabetes, hepatitis, hyperlipidemia, hypertension, seizures, other Surgical history: Reports: orthopedic, other Psychiatric history: Reports: bipolar, prior suicide attempt, previous psychiatric hospitalization - Social History Smoking Status: Current every day smoker Smokeless Tobacco Status: No Alcohol use: Reports: rarely Drug use: Reports: opiates, methamphetamine, IV Drug Use, prescription drug abuse Physical Exam - General Limitations: no limitations General appearance: alert, in no apparent distress Course Vital Signs Temperature 98.3 F 06/03/19 23:52 Pulse Rate 113 06/03/19 23:52 Respiratory Rate 18 06/03/19 23:52 Blood Pressure 165/100 06/03/19 23:52 O2 Sat by Pulse Oximetry 100 06/03/19 23:52 Temperature 98.8 F 06/04/19 11:23 Pulse Rate 78 06/04/19 11:23 Respiratory Rate 17 06/04/19 11:23 Blood Pressure 122/75 06/04/19 11:23 O2 Sat by Pulse Oximetry 98 06/04/19 11:23 Oxygen Delivery Oxygen Delivery Room Air Medical Decision Making - Lab Data Result diagrams: 06/04/19 04:08 06/04/19 04:08 Lab Results 06/04/19 06/04/19 06/04/19 Range/Units 00:16 00:19 00:25 WBC 6.6 (4.3-11.1) K/mcL RBC 3.95 L (4.19-5.50) M/mcL Hgb 11.6 L (12.9-16.9) g/dL Hct 34.9 L (37.5-50.1) % MCV 88.4 (83.0-100.0) fL MCH 29.4 (28.0-33.3) pg MCHC 33.2 (31.6-35.5) g/dL RDW 13.9 (11.5-14.5) % Plt Count 332 (140-400) K/mcL MPV 10.0 (9.4-12.4) fL Immature Gran % 0.3 (0-4) % Seg Neutrophils % 72.4 % Lymphocytes % 16.8 % Monocytes % 9.4 % Eosinophils % 0.5 % Basophils % 0.6 % Neutrophils # 4.8 (1.6-8.9) K/mcL Lymphocytes # 1.1 (0.6-4.6) K/mcL Monocytes # 0.6 (0.0-1.3) K/mcL Eosinophils # 0.0 (0.0-0.6) K/mcL Basophils # 0.0 (0.0-0.2) K/mcL VBG pH (7.32-7.42) pH Units VBG pCO2 (41-51) mmHg VBG pO2 (25-50) mmHg VBG HCO3 (21-27) mEq/L Sodium (136-145) mEq/L Potassium (3.5-5.1) mEq/L Chloride (98-107) mEq/L Carbon Dioxide (23-29) mEq/L BUN (6-20) mg/dL Creatinine (0.70-1.30) mg/dL Est GFR ( Amer) (> 60) Est GFR (Non-Af Amer) (> 60) BUN/Creatinine Ratio (6-26) Glucose (70-105) mg/dL POC Glucose > 600 H* > 600 H* (70-99) mg/dL Calculated Osmolality (280-300) Lactic Acid (0.5-2.2) mmol/L Calcium (8.6-10.3) mg/dL Phosphorus (2.7-4.5) mg/dL Magnesium (1.6-2.6) mg/dL Troponin I (< 0.04) ng/mL Beta-Hydroxybutyric Acd (0.02-0.27) mmol/L Urine Color (Yellow) Urine Clarity (Clear) Urine pH (5.0-8.0) pH Units Ur Specific [place] (1.010-1.025) Urine Protein (Neg-Trace) mg/dL Urine Glucose (UA) (Normal) mg/dL Urine Ketones (Negative) mg/dL Urine Blood (Negative) Urine Nitrite (Negative) Urine Bilirubin (Negative) Urine Urobilinogen (Normal) mg/dL Ur Leukocyte Esterase (Negative) Ur Culture Indicated? (NO) 06/04/19 06/04/19 06/04/19 Range/Units 00:25 00:25 00:25 WBC (4.3-11.1) K/mcL RBC (4.19-5.50) M/mcL Hgb (12.9-16.9) g/dL Hct (37.5-50.1) % MCV (83.0-100.0) fL MCH (28.0-33.3) pg MCHC (31.6-35.5) g/dL RDW (11.5-14.5) % Plt Count (140-400) K/mcL MPV (9.4-12.4) fL Immature Gran % (0-4) % Seg Neutrophils % % Lymphocytes % % Monocytes % % Eosinophils % % Basophils % % Neutrophils # (1.6-8.9) K/mcL Lymphocytes # (0.6-4.6) K/mcL Monocytes # (0.0-1.3) K/mcL Eosinophils # (0.0-0.6) K/mcL Basophils # (0.0-0.2) K/mcL VBG pH (7.32-7.42) pH Units VBG pCO2 (41-51) mmHg VBG pO2 (25-50) mmHg VBG HCO3 (21-27) mEq/L Sodium 127 L (136-145) mEq/L Potassium 4.9 (3.5-5.1) mEq/L Chloride 89 L (98-107) mEq/L Carbon Dioxide 18 L (23-29) mEq/L BUN 20 (6-20) mg/dL Creatinine 1.05 (0.70-1.30) mg/dL Est GFR ( Amer) > 60 (> 60) Est GFR (Non-Af Amer) > 60 (> 60) BUN/Creatinine Ratio 19 (6-26) Glucose 774 H* (70-105) mg/dL POC Glucose (70-99) mg/dL Calculated Osmolality 304 H (280-300) Lactic Acid 1.4 (0.5-2.2) mmol/L Calcium 9.5 (8.6-10.3) mg/dL Phosphorus 3.3 (2.7-4.5) mg/dL Magnesium 2.2 (1.6-2.6) mg/dL Troponin I < 0.03 (< 0.04) ng/mL Beta-Hydroxybutyric Acd > 2.00 H (0.02-0.27) mmol/L Urine Color (Yellow) Urine Clarity (Clear) Urine pH (5.0-8.0) pH Units Ur Specific [place] (1.010-1.025) Urine Protein (Neg-Trace) mg/dL Urine Glucose (UA) (Normal) mg/dL Urine Ketones (Negative) mg/dL Urine Blood (Negative) Urine Nitrite (Negative) Urine Bilirubin (Negative) Urine Urobilinogen (Normal) mg/dL Ur Leukocyte Esterase (Negative) Ur Culture Indicated? (NO) 06/04/19 06/04/19 06/04/19 Range/Units 00:38 01:00 02:03 WBC (4.3-11.1) K/mcL RBC (4.19-5.50) M/mcL Hgb (12.9-16.9) g/dL Hct (37.5-50.1) % MCV (83.0-100.0) fL MCH (28.0-33.3) pg MCHC (31.6-35.5) g/dL RDW (11.5-14.5) % Plt Count (140-400) K/mcL MPV (9.4-12.4) fL Immature Gran % (0-4) % Seg Neutrophils % % Lymphocytes % % Monocytes % % Eosinophils % % Basophils % % Neutrophils # (1.6-8.9) K/mcL Lymphocytes # (0.6-4.6) K/mcL Monocytes # (0.0-1.3) K/mcL Eosinophils # (0.0-0.6) K/mcL Basophils # (0.0-0.2) K/mcL VBG pH 7.46 H (7.32-7.42) pH Units VBG pCO2 25 L (41-51) mmHg VBG pO2 118 H (25-50) mmHg VBG HCO3 18 L (21-27) mEq/L Sodium (136-145) mEq/L Potassium (3.5-5.1) mEq/L Chloride (98-107) mEq/L Carbon Dioxide (23-29) mEq/L BUN (6-20) mg/dL Creatinine (0.70-1.30) mg/dL Est GFR ( Amer) (> 60) Est GFR (Non-Af Amer) (> 60) BUN/Creatinine Ratio (6-26) Glucose (70-105) mg/dL POC Glucose 526 H* (70-99) mg/dL Calculated Osmolality (280-300) Lactic Acid (0.5-2.2) mmol/L Calcium (8.6-10.3) mg/dL Phosphorus (2.7-4.5) mg/dL Magnesium (1.6-2.6) mg/dL Troponin I (< 0.04) ng/mL Beta-Hydroxybutyric Acd (0.02-0.27) mmol/L Urine Color Yellow (Yellow) Urine Clarity Clear (Clear) Urine pH 6.0 (5.0-8.0) pH Units Ur Specific [place] 1.029 H (1.010-1.025) Urine Protein Negative (Neg-Trace) mg/dL Urine Glucose (UA) >=1000 H (Normal) mg/dL Urine Ketones 40 H (Negative) mg/dL Urine Blood Negative (Negative) Urine Nitrite Negative (Negative) Urine Bilirubin Negative (Negative) Urine Urobilinogen Normal (Normal) mg/dL Ur Leukocyte Esterase Negative (Negative) Ur Culture Indicated? NO (NO) Attestation Statement - Attestation Attestation: I examined this patient and my medical decision-making was reviewed with the Resident Physician. I agree with the documented findings, disposition and treatment plan as described except to the extent set forth below. Patiently 3-year-old gentleman who has history of insulin-dependent diabetes and also history of polysubstance his history in the past. Patient reports that he has not been taking his insulin and his blood sugars have been running out of control. Physical exam patient is mildly tachycardic and has dry mucous membranes Medical decision management initially evaluated for DKA and infectious causes pain is most likely to admit the patient for management
[2019-06-04 01:05] LABS: BUN/Creatinine Ratio 19 (6-26); Blood Urea Nitrogen 20 mg/dL (6-20); Calcium 9.5 mg/dL (8.6-10.3); Carbon Dioxide 18 mEq/L (23-29); Chloride 89 mEq/L (98-107); Glucose 774 mg/dL (70-105); Magnesium 2.2 mg/dL (1.6-2.6); Osmolality,Calculated 304 (280-300); Phosphorous 3.3 mg/dL (2.7-4.5); Potassium 4.9 mEq/L (3.5-5.1); Sodium 127 mEq/L (136-145); Troponin I < 0.03 ng/mL (< 0.04); eGFR For African Americans > 60 (> 60); eGFR For Non-African Americans > 60 (> 60)
[2019-06-04 01:06] LABS: Bilirubin,Urine Negative (Negative); Blood,Urine Negative (Negative); Clarity,Urine Clear (Clear); Color,Urine Yellow (Yellow); Glucose,Urine (UA) >=1000 mg/dL (Normal); Ketones,Urine 40 mg/dL (Negative); Leukocyte Esterase,Urine Negative (Negative); Nitrite,Urine Negative (Negative); Protein,Urine Negative (Neg-Trace); Specific Gravity,Urine 1.029 (1.010-1.025); Urobilinogen,Urine Normal (Normal)
[2019-06-04] MEDS ORDERED: *HR* Dextrose 50 % in Water (Syg) 50 ML SYRINGE IVP PRN ×3 (01:08→11:04)
[2019-06-04] MEDS ORDERED: Insulin Human Regular 100 UNIT in 0.9 % Sodium Chloride 100 ML IVC SCH ×2 (01:15→03:15)
[2019-06-04] MEDS ORDERED: Insulin Regular, Human 100 UNIT/ML IV PRN (01:59)
--- NOTE | 2019-06-04 02:21 | Internal Med History&Physical ---
Date of Encounter: 06/04/19 Time of Encounter: 02: Internal Medicine - H&P: HPI Chief complaint: DKA History of present illness: Mr. Lemus is a 33 year old male with history of diabetes, drug abuse who presented to the ED after patient was found by EMS after law enforcement alerted them that he was downtown on the [place] [place]. Patient has had multiple admissions for DKA. Patient states that he is trying to "get himself together" but is having some difficulty with jean-baptiste flow, and has been unable to maintain an insulin regimen. He is also complaining of an infection in his foot that has been treated with multiple antibiotics but has not yet resolved. Patient also states that he has been having some troubles with friends in town as well as housing security. Patient was recently discharged on May 28 for DKA and suicidal ideations and was seen and evaluated by psychiatry. Rehab facility had been set up and he was approved however on discharge he adamantly refused to go to the rehab facility. On initial assessment patient was afebrile, mildly hypotensive with a blood pressure 1 6500, tachycardic with a heart rate of 113 saturating 100% on room air. Laboratory workup notable for a sodium of 127, glucose of 774, Bicarb of 18. was as low as 10. Beta hydroxybutyric acid >2. Patient was started on insulin drip and fluid resuscitation per DKA protocol. Past Med Surg Social Fam HX - Past Medical History Medical history: diabetes, hepatitis, hyperlipidemia, hypertension, seizures, other Additional medical history: Hep c IVDU Psychiatric history: bipolar, prior suicide attempt, previous psychiatric hospitalization - Past Surgical History Surgical History: orthopedic, other Additional surgical history: right ankle - Social History Smoking Status: Current every day smoker Smokeless Tobacco Status: No Alcohol use: rarely Drug use: opiates, methamphetamine, IV Drug Use, prescription drug abuse - Family History Father Family Member Ethnicity: Non- Living Status: Hx Family Cardiac Disorders: Yes (SD) Hx Family Endocrine Disorder: Yes (DM) Mother Family Member Ethnicity: Non- Living Status: Still Living Sister Family Member Ethnicity: Non- Living Status: Still Living Internal Medicine - H&P: Meds Gabapentin [Neurontin] 600 mg PO TID 30 Days #180 capsule 05/24/19 [Rx] Phenytoin ER [Dilantin ER] 100 mg PO TID 30 Days #90 capsule 05/24/19 [Rx] Quetiapine Fumarate [Quetiapine Fumarate ER] 400 mg PO DAILY 30 Days #30 tab.er.24h 05/24/19 [Rx] Venlafaxine HCl [Effexor Xr] 225 mg PO DAILY 30 Days #90 cap.er.24h 05/24/19 [Rx] Insulin ASPART [NovoLOG] See Protocol SQ TIDWM PRN #1 vial 05/28/19 [Rx] Insulin NPH Hum/Reg Insulin Hm [Novolin 70-30 100 Unit/ml Vial] 33 unit SQ BID #1 vial 05/28/19 [Rx] Allergy/AdvReac Type Severity Reaction Status Date / Time insulin glargine Allergy Blister Verified 03/23/19 23:42 [From Lantus] diphenhydramine AdvReac Intermediate See Verified 03/23/19 23:42 [From Benadryl] Comments All Systems PM: A 10-system review of systems was performed and is negative for pertinent findings except as documented above in the HPI. - Constitutional Constitutional: no chills, no fever(s), no night sweats - EENT Eyes: no change in vision, no discharge, no pain, no photophobia Ears: no ear discharge, no ear pain, no tinnitus Nose, mouth and throat: no dysphagia, no nasal discharge, no neck pain, no sore throat - Cardiovascular Cardiovascular ROS IM: no chest pain, no diaphoresis, no dyspnea, no lightheadedness, no palpitations, no syncope - Respiratory Respiratory: no cough, no dyspnea, no wheezing, no excessive phlegm production - Gastrointestinal Gastrointestinal: no abdominal pain, no diarrhea, no hematemesis, no hematochezia, no melena, no nausea, no vomiting - Musculoskeletal Musculoskeletal ROS IM: no numbness, no tingling - Integumentary Integumentary IM: no rash, no unusual bruising - Neurological Neurological ROS: no confusion, no convulsions, no focal weakness, no numbness, no tingling, no tremor(s) - Hematologic/Lymphatic Hematologic/Lymphatic: no easy bruising - Constitutional Vitals: Temp Pulse Resp BP Pulse Ox 98.3 F 89 20 143/86 100 06/03/19 23:52 06/04/19 02:00 06/04/19 02:00 06/04/19 02:00 06/04/19 02:00 Exam: General: Alert and oriented Skin:Normal color, no rash, no lesions. HEENT:EOM, pupils equal, round and reactive. Cardiovascular:Normal S1 & S2, no rubs, murmurs or gallops. No JVD. Pulse regular. Lungs:Normal breath sounds, no wheezes or crackles. Abdomen:Soft, non-tender, no rigidity. Extremities:No deformity, no edema or tenderness, no joint swelling or clubbing. Neurological:Normal cognition and motor skills. Pulses:Carotid and radial pulses normal +2. Rest of the physical exam is non contributory Internal Med - H&P Results - Labs CBC & Chem 7: 06/04/19 04:08 06/04/19 04:08 Labs: Short CBC 06/04/19 Range/Units 00:25 WBC 6.6 (4.3-11.1) K/mcL Hgb 11.6 L (12.9-16.9) g/dL Hct 34.9 L (37.5-50.1) % Plt Count 332 (140-400) K/mcL Neutrophils # 4.8 (1.6-8.9) K/mcL BMP 06/04/19 00:25 Sodium 127 L Potassium 4.9 Chloride 89 L Carbon Dioxide 18 L BUN 20 Creatinine 1.05 Glucose 774 H* Calcium 9.5 Cardiac Enzymes 06/04/19 Range/Units 00:25 Troponin I < 0.03 (< 0.04) ng/mL Urine 06/04/19 Range/Units 01:00 Urine Color Yellow (Yellow) Urine Clarity Clear (Clear) Urine pH 6.0 (5.0-8.0) pH Units Ur Specific [place] 1.029 H (1.010-1.025) Urine Protein Negative (Neg-Trace) mg/dL Urine Glucose (UA) >=1000 H (Normal) mg/dL - ABG Interpretation ABG results: 06/04/19 00:38 VBG pH 7.46 H VBG pCO2 25 L VBG pO2 118 H VBG HCO3 18 L - Impressions ITS Impressions Chest X-Ray 06/04/19 00:04 IMPRESSION: 1. No radiographic finding to account for patient's chest pain. D/ / Bang H. Dowling, MD / Alexander Dowling MD Interpreting Provider: Alexander Dowling MD - Assessment and Plan (1) DKA (diabetic ketoacidoses) Current Visit: Yes Status: Acute Assessment and plan: Patient presents with hyperglycemia and elevated ion gap. Beta hydroxybutyric acid greater than 2. Suspect likely secondary to medication noncompliance. Otherwise, no evidence of infection. EKG reviewed and shows no ischemic changes. Patient received fluid bolus in the ED. Currently on insulin drip. Most recent blood glucose 437. -Continue treatment per DKA protocol Qualifiers: Diabetes mellitus type: other specified (including KENYATTA) Diabetes mellitus complication detail: without coma Qualified Code(s): E13.10 - Other specified diabetes mellitus with ketoacidosis without coma (2) Seizure disorder Current Visit: No Status: Chronic Assessment and plan: No evidence of seizure activity. Patient reports compliance with his medications. Restart home medications when able to take by mouth. (3) IV drug abuse Current Visit: No Status: Chronic Assessment and plan: Continue to encourage cessation. Urine tox posiive . Patient refusing rehabilitation which was set up performed during previous admission. -Consult to social psychologist (4) Schizoaffective disorder Current Visit: No Status: Acute Assessment and plan: Resume antipsychotic Qualifiers: Schizoaffective disorder type: bipolar Qualified Code(s): F25.0 - Schizoaffective disorder, bipolar type (5) DVT prophylaxis Current Visit: No Status: Acute Assessment and plan: Subcutaneous heparin - Time Spent With Patient Total time spent is greater than 50% in coordination of care (as documented) at patient's floor/unit and/or counseling patient:
[2019-06-04 04:19] LABS: Basophils % 0.6 %; Eosinophils # 0.1 K/mcL (0.0-0.6); Eosinophils % 1.6 %; Hematocrit 34.3 % (37.5-50.1); Hemoglobin 11.5 g/dL (12.9-16.9); Immature Granulocytes % 0.4 % (0-4); Lymphocytes % 27.9 %; Mean Corpuscular HGB Conc 33.5 g/dL (31.6-35.5); Mean Corpuscular Hemoglobin 29.2 pg (28.0-33.3); Mean Corpuscular Volume 87.1 fL (83.0-100.0); Mean Platelet Volume 9.3 fL (9.4-12.4); Monocytes # 0.6 K/mcL (0.0-1.3); Monocytes % 8.4 %; Neutrophils # 4.3 K/mcL (1.6-8.9); Platelet Count 310 K/mcL (140-400); Red Blood Count 3.94 M/mcL (4.19-5.50); Red Cell Distribution Width 13.7 % (11.5-14.5); Segmented Neutrophils % 61.1 %
[2019-06-04 04:28] LABS: VBG HCO3 27 mEq/L (21-27); VBG PCO2 51 mmHg (41-51); VBG PH 7.33 pH Units (7.32-7.42); VBG PO2 76 mmHg (25-50)
[2019-06-04 04:44] LABS: Alanine Aminotransferase 29 Units/L (7-52); Albumin/Globulin Ratio 1.5 (1.1-2.2); Alkaline Phosphatase 105 Units/L (34-104); Aspartate Amino Transferase 27 Units/L (13-39); BUN/Creatinine Ratio 16 (6-26); Bilirubin,Total 0.5 mg/dL (0.3-1.0); Blood Urea Nitrogen 15 mg/dL (6-20); Calcium 9.1 mg/dL (8.6-10.3); Carbon Dioxide 26 mEq/L (23-29); Chloride 101 mEq/L (98-107); Globulin 2.7 g/dL (2.4-3.5); Glucose 183 mg/dL (70-105); Osmolality,Calculated 294 (280-300); Potassium 3.5 mEq/L (3.5-5.1); Sodium 139 mEq/L (136-145); Total Protein 6.7 g/dL (6.4-8.9); eGFR For African Americans > 60 (> 60); eGFR For Non-African Americans > 60 (> 60)
[2019-06-04] MEDS: *HR* Heparin 5,000 UNIT/ML VIAL SQ SCH ×3 (05:11→20:42)
[2019-06-04 05:29] LABS: Amphetamine Screen,Urine Positive ng/mL (Cutoff=1000); Barbiturate Screen,Urine Negative ng/mL (Cutoff=200); Benzodiazepines Screen,Urine Negative ng/mL (Cutoff=200); Cannabinoid Screen,Urine Negative ng/mL (Cutoff = 50); Cocaine Screen,Urine Negative ng/mL (Cutoff= 300); Opiate Screen,Urine Negative ng/mL (Cutoff=300); Phencyclidine Screen,Urine Negative ng/mL (Cutoff=25)
[2019-06-04] MEDS ORDERED: Insulin DETEMIR 100 UNIT/ML X5UNITS SQ ONE (05:42)
[2019-06-04] MEDS ORDERED: Insulin NPH/REG 70/30 100 UNIT/ML (x5UNIT) SQ ONE (06:07)
[2019-06-04] MEDS: Venlafaxine XR (24 HR) 75 MG CAP.ER.24H PO SCH (08:53)
[2019-06-04] MEDS: Gabapentin 300 MG CAPSULE PO SCH ×3 (08:53→20:40)
[2019-06-04] MEDS: Insulin LISPRO 300 UNITS/3 ML VIAL SQ SCH ×3 (08:55→16:02)
--- NOTE | 2019-06-04 10:53 | Internal Med Progress Note ---
Hospitalist Progress Note - Encounter Date of Encounter: 06/04/19 Time of Encounter: 08:15 - Subjective Interval History: mr Lemus appears irritable this morning laying comfortably in bed. Was very uncooperative with the history taking did voice his frustration with his health and financial situation. He admits to being homeless and estranged from his family. He is a on Social Security disability and gets his money sent to a debit card. - Exam Vitals: Temp Pulse Resp BP Pulse Ox 98.1 F 75 18 129/84 98 06/04/19 07:16 06/04/19 09:01 06/04/19 07:16 06/04/19 07:16 06/04/19 07:16 Exam: GENERAL: NAD, A&O x3, irritable SKIN: Visualized portion of his lower extremity has multiple excoriations otherwise pink warm, acyanotic no jaundice EYES: EOMI, PERRLA, no sclera icterus HENT: Head atraumatic, no facial asymmetry, frontal and maxillary sinus non- tender, normal hearing, oropharynx and mucosa moist and without any exudates NECK: No cervical lymphadenopathy, trachea midline, thyroid is palpable does not appear enlarged LUNGS: vesicular breath sounds, clear to auscultation, no wheeze, rhonchi, rales or crackles. Non labored respirations HEART: Normal rate and rhythm, no murmurs or rubs ABDOMEN: soft, non-tender, non-distended, bowel sounds x 4 normoactive EXTRMITIES: No LE asymmetry, No LE edema, pedal pulses 1+ and radial pulses 2 + and equal bilaterally NEURO: Speech and comprehension appears intact. PSYCH: uncooperative, irritable, mood depressed and affect is labile - Assessment and Plan (1) DKA (diabetic ketoacidoses) Current Visit: Yes Status: Acute Assessment and Plan: Resolved will continue current management for his diabetes Patient presents with hyperglycemia and elevated ion gap. Beta hydroxybutyric acid greater than 2. Suspect likely secondary to medication noncompliance. Otherwise, no evidence of infection. EKG reviewed and shows no ischemic changes. Patient received fluid bolus in the ED. Currently on insulin drip. Most recent blood glucose 437. -Continue treatment per DKA protocol (2) IV drug abuse Current Visit: No Status: Chronic Assessment and Plan: His homelessness put him at high risk for relapse Continue to encourage cessation. Urine tox posiive . Patient refusing rehabilitation which was set up performed during previous admission. -Consult to bilingual social worker (3) DVT prophylaxis Current Visit: No Status: Acute Assessment and Plan: Subcutaneous heparin (4) Schizoaffective disorder Current Visit: No Status: Acute Assessment and Plan: Patient stated that he is not interested in seeing a psychiatry (5) Seizure disorder Current Visit: No Status: Chronic Assessment and Plan: Continue seizure precaution No evidence of seizure activity. Patient reports compliance with his medications. Restart home medications when able to take by mouth. (6) Homeless single person Current Visit: Yes Status: Acute Assessment and Plan: He admits to being homeless pre-disposes patient for high risk for hospital readmission, he is on social security disability. He stated he has no discharge plans site and no interaction with family. He is not interested in going to rehabilitation that he has been to rehabilitation numerous times (7) Diabetes mellitus Current Visit: Yes Status: Acute Assessment and Plan: His homelessness put him at high risk for noncompliance to medical therapy and thus DKA, blood glucose goal increase basal insulin - Time Spent with Patient Total time spent is greater than 50% in coordination of care (as documented) at patient's floor/unit and/or counseling patient: Internal Medicine: Result - Labs CBC & Chem 7: 06/04/19 04:08 06/04/19 04:08 Labs: Short CBC 06/04/19 06/04/19 Range/Units 00:25 04:08 WBC 6.6 7.0 (4.3-11.1) K/mcL Hgb 11.6 L 11.5 L (12.9-16.9) g/dL Hct 34.9 L 34.3 L (37.5-50.1) % Plt Count 332 310 (140-400) K/mcL Neutrophils # 4.8 4.3 (1.6-8.9) K/mcL BMP 06/04/19 06/04/19 00:25 04:08 Sodium 127 L 139 D Potassium 4.9 3.5 D Chloride 89 L 101 Carbon Dioxide 18 L 26 BUN 20 15 Creatinine 1.05 0.91 Glucose 774 H* 183 H Calcium 9.5 9.1 Cardiac Enzymes 06/04/19 Range/Units 00:25 Troponin I < 0.03 (< 0.04) ng/mL Liver Function 06/04/19 Range/Units 04:08 Total Bilirubin 0.5 (0.3-1.0) mg/dL AST 27 (13-39) Units/L ALT 29 (7-52) Units/L Alkaline Phosphatase 105 H (34-104) Units/L Albumin 4.0 (3.5-5.7) g/dL Urine 06/04/19 Range/Units 01:00 Urine Color Yellow (Yellow) Urine Clarity Clear (Clear) Urine pH 6.0 (5.0-8.0) pH Units Ur Specific [place] 1.029 H (1.010-1.025) Urine Protein Negative (Neg-Trace) mg/dL Urine Glucose (UA) >=1000 H (Normal) mg/dL - Impressions Impressions Chest X-Ray 06/04/19 00:04 IMPRESSION: 1. No radiographic finding to account for patient's chest pain. D/ / Alexander Dowling MD / Alexander Dowling MD Interpreting Provider: Alexander Dowling MD Consult Discharge Plan - Plan Referrals: Lenin Ortega DO [Primary Care Provider] - 06/15/19 10:00 am (will see ) (1) DKA (diabetic ketoacidoses) Qualifiers: Diabetes mellitus type: other specified (including K[place]YATTA) Diabetes mellitus complication detail: without coma Qualified Code(s): E13.10 - Other specified diabetes mellitus with ketoacidosis without coma (4) Schizoaffective disorder Qualifiers: Schizoaffective disorder type: bipolar Qualified Code(s): F25.0 - Schizoaffective disorder, bipolar type
[2019-06-04] MEDS ORDERED: Naloxone 0.4 MG/ML INJ IVP PRN (10:56)
[2019-06-04] MEDS ORDERED: Dextrose Gel 15 GM/37.5 ML TUBE PO PRN ×2 (11:04)
[2019-06-04] MEDS ORDERED: D5% in Water 1,000 ML IVC PRN (11:04)
[2019-06-04 13:36] LABS: Estimated Average Glucose 240 mg/dl
[2019-06-04] MEDS: Insulin NPH/REG 70/30 100 UNIT/ML (x5UNIT) SQ SCH (16:08)
[2019-06-04] MEDS ORDERED: Insulin LISPRO 300 UNITS/3 ML VIAL SQ SCH (21:00)
--- NOTE | 2019-06-04 23:08 | Electrocardiograph Report ---
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
[2019-06-05] MEDS: *HR* Heparin 5,000 UNIT/ML VIAL SQ SCH (05:16)
[2019-06-05 06:49] LABS: Basophils % 0.5 %; Eosinophils # 0.3 K/mcL (0.0-0.6); Eosinophils % 3.1 %; Hematocrit 38.1 % (37.5-50.1); Hemoglobin 12.2 g/dL (12.9-16.9); Immature Granulocytes % 0.2 % (0-4); Lymphocytes # 1.3 K/mcL (0.6-4.6); Lymphocytes % 15.8 %; Mean Corpuscular Hemoglobin 28.6 pg (28.0-33.3); Mean Corpuscular Volume 89.2 fL (83.0-100.0); Mean Platelet Volume 9.6 fL (9.4-12.4); Monocytes # 0.6 K/mcL (0.0-1.3); Monocytes % 6.7 %; Neutrophils # 6.1 K/mcL (1.6-8.9); Platelet Count 309 K/mcL (140-400); Red Blood Count 4.27 M/mcL (4.19-5.50); Segmented Neutrophils % 73.7 %; White Blood Count 8.3 K/mcL (4.3-11.1)
[2019-06-05 07:10] LABS: BUN/Creatinine Ratio 22 (6-26); Blood Urea Nitrogen 16 mg/dL (6-20); Calcium 8.4 mg/dL (8.6-10.3); Carbon Dioxide 26 mEq/L (23-29); Chloride 104 mEq/L (98-107); Glucose 300 mg/dL (70-105); Magnesium 1.7 mg/dL (1.6-2.6); Osmolality,Calculated 296 (280-300); Potassium 4.3 mEq/L (3.5-5.1); Sodium 137 mEq/L (136-145); eGFR For African Americans > 60 (> 60); eGFR For Non-African Americans > 60 (> 60)
[2019-06-05] MEDS: Gabapentin 300 MG CAPSULE PO SCH (08:31)
[2019-06-05] MEDS: Venlafaxine XR (24 HR) 75 MG CAP.ER.24H PO SCH (08:31)
[2019-06-05] MEDS: Insulin NPH/REG 70/30 100 UNIT/ML (x5UNIT) SQ SCH (08:31)
[2019-06-05] MEDS: Insulin LISPRO 300 UNITS/3 ML VIAL SQ SCH ×2 (08:32→11:44)
[2019-06-05 11:31] VITALS: BP 154/84
--- NOTE | 2019-06-05 12:03 | Discharge Summary ---
- NOTES TO OUTPATIENT PROVIDER Notes to Outpatient Provider: Posthospital discharge for DKA, noncompliant diabetic patient, homelessness Orders not resulted at time of discharge: Pending orders 06/06/19 04:00 Basic Metabolic Panel AM 0400 Complete Blood Count [HEME] AM 0400 Magnesium AM 0400 Date of Encounter: 06/05/19 Time of Encounter: 12:26 - Discharge Diagnosis (1) DKA (diabetic ketoacidoses) Priority: Primary Status: Acute Assessment and Plan: Resolved will continue current management for his diabetes, likely due to noncompliance and him being homeless high-risk for recurrent DKA Patient presents with hyperglycemia and elevated ion gap. Beta hydroxybutyric acid greater than 2. Suspect likely secondary to medication noncompliance. Otherwise, no evidence of infection. EKG reviewed and shows no ischemic changes. Patient received fluid bolus in the ED. Currently on insulin drip. Most recent blood glucose 437. -Continue treatment per DKA protocol Qualifiers: Diabetes mellitus type: other specified (including KENYATTA) Diabetes mellitus complication detail: without coma Qualified Code(s): E13.10 - Other specified diabetes mellitus with ketoacidosis without coma (2) Diabetes mellitus Priority: Secondary Status: Acute Assessment and Plan: His homelessness put him at high risk for noncompliance to medical therapy and thus DKA, blood glucose goal increase basal insulin. Patient is requesting insulin supplies will be ordered for him at discharge-he does not want basal insulin he wants his Humulin 70/30, glucometer, with supplies as well as pen needles, giving his drug use not a candidate for insulin syringes Qualifiers: Diabetes mellitus type: other specified (including KENYATTA) Diabetes mellitus complication status: with ketoacidosis Diabetes mellitus complication detail: without coma Qualified Code(s): E13.10 - Other specified diabetes mellitus with ketoacidosis without coma; Z79.4 - care home (current) use of insulin (3) IV drug abuse Priority: Secondary Status: Chronic Assessment and Plan: His homelessness put him at high risk for relapse discussed with patient regarding possible rehabilitation options he declined Continue to encourage cessation. Urine tox posiive . Patient refusing rehabilitation which was set up performed during previous admission. -Consult to child protective services social worker (4) DVT prophylaxis Priority: Secondary Status: Acute Assessment and Plan: He has been discharge encouraged to be ambulatory Subcutaneous heparin (5) Schizoaffective disorder Priority: Secondary Status: Acute Assessment and Plan: Patient stated that he is not interested in seeing a psychiatry, at discharge it was recommended again and he declined Qualifiers: Schizoaffective disorder type: bipolar Qualified Code(s): F25.0 - Schizoaffective disorder, bipolar type (6) Seizure disorder Priority: Secondary Status: Chronic Assessment and Plan: We will discharge on written prescriptions given his homeless status Continue seizure precaution, no evidence of seizure during his hospital stay. Suspect hypoglycemia induced seizures No evidence of seizure activity. Patient reports compliance with his medications. Restart home medications when able to take by mouth. (7) Homeless single person Priority: Secondary Status: Acute Assessment and Plan: He admits to being homeless pre-disposes patient for high risk for hospital readmission, he is on social security disability. He stated he has no discharge plans site and no interaction with family. He is not interested in going to re habilitation that he has been to rehabilitation numerous times Hospital course: Mr. Lemus is a 33 year old male was hospitalized for DKA and placed in the DKA protocol. He is noted to be homelessness which puts him at high risk for DKA given his history of diabetes. Multiple attempts was made to encourage patients to go to a rehabilitation facility but he adamantly refused. He also adamantly refused psychiatric consult cititng prior several rehabilitation facilities and had several psychiatry services which according to the patient was a waste of his time and not useful. Patient was noted during this hospital stay to have mood swings which is in-accordance with his history of schizoaffective disorder. Given his homelessness he will be discharged with written prescriptions for his home meds as well as insulin and Supplies. Patient will only be sent on insulin pens given his polysubstance use he is not an ideal candidate for insulin syringes. Discharge discussed with: patient, nurse, social work, case management - Time Spent with Patient Total time spent providing and/or coordinating discharge services:38 mins Specific discharge activities: Please ensure that you have a place to stay and to keep you insulin - Discharge Medications Prescriptions: New Blood-Glucose Meter, Drum-Type [Accu-Chek] 1 each MC WD #1 kit Blood Sugar Diagnostic [Accu-Chek Guide Test Strip] 1 each MC QID #100 strip Alcohol Antiseptic Pads [Alcohol Pads] 1 each TP QID #100 med..pad Insulin NPH Hum/Reg Insulin Hm [Humulin 70/30 Kwikpen] 25 unit SQ BID #1 insuln.pen Lancets 1 each MC QID #100 each Insulin ASPART [Novolog Flexpen] 5 unit SQ TIDAC #1 insuln.pen Continued Phenytoin ER [Dilantin ER] 100 mg PO TID 30 Days #90 capsule Venlafaxine HCl [Effexor Xr] 225 mg PO DAILY 30 Days #90 cap.er.24h Gabapentin [Neurontin] 600 mg PO TID 30 Days #180 capsule Quetiapine Fumarate [Quetiapine Fumarate ER] 400 mg PO DAILY 30 Days #30 tab.er.24h Discontinued Insulin NPH Hum/Reg Insulin Hm [Novolin 70-30 100 Unit/ml Vial] 33 unit SQ BID #1 vial Insulin ASPART [NovoLOG] See Protocol SQ TIDWM PRN #1 vial PRN Reason: SLIDING SCALE Home Medications: Alcohol Antiseptic Pads [Alcohol Pads] 1 each QID #100 med..pad 06/05/19 [Rx] Blood Sugar Diagnostic [Accu-Chek Guide Test Strip] 1 each QID #100 strip 06/05/19 [Rx] Blood-Glucose Meter, Drum-Type [Accu-Chek] 1 each WD #1 kit 06/05/19 [Rx] Gabapentin [Neurontin] 600 mg PO TID 30 Days #180 capsule 06/05/19 [Rx] Insulin ASPART [Novolog Flexpen] 5 unit SQ TIDAC #1 insuln.pen 06/05/19 [Rx] Insulin NPH Hum/Reg Insulin Hm [Humulin 70/30 Kwikpen] 25 unit SQ BID #1 insuln.pen 06/05/19 [Rx] Lancets 1 each QID #100 each 06/05/19 [Rx] Phenytoin ER [Dilantin ER] 100 mg PO TID 30 Days #90 capsule 06/05/19 [Rx] Quetiapine Fumarate [Quetiapine Fumarate ER] 400 mg PO DAILY 30 Days #30 tab.er.24h 06/05/19 [Rx] Venlafaxine HCl [Effexor Xr] 225 mg PO DAILY 30 Days #90 cap.er.24h 06/05/19 [Rx] Allergies/Adverse Reactions: Allergy/AdvReac Type Severity Reaction Status Date / Time insulin glargine Allergy Blister Verified 03/23/19 23:42 [From Lantus] diphenhydramine AdvReac Intermediate See Verified 03/23/19 23:42 [From Benadryl] Comments Date of admission: 06/04/19 02:03 Primary care physician: Lenin Ortega DO Consults: 06/04/19 01:59 Consult to [facility]line Attendant [CONS] Routine Reason for SW Consult: DKA; Homeless Discharging clinician: Shon Jarrell Anticipated date of discharge: 06/05/19 - Constitutional Vitals: Temp Pulse Resp BP Pulse Ox 97.8 F 102 18 154/84 97 06/05/19 11:25 06/05/19 11:25 06/05/19 11:25 06/05/19 11:25 06/04/19 23:39 Exam: GENERAL: NAD, A&O x3, pleasant and conversant SKIN: No skin lesions or rashes, non-jaundiced EYES: EOMI, PERRLA, no sclera icterus HENT: Head atraumatic, no facial asymmetry, frontal and maxillary sinus non- tender, normal hearing, oropharynx and mucosa moist and without any exudates NECK: No cervical lymphadenopathy, trachea midline, thyroid is palpable does not appear enlarged LUNGS: vesicular breath sounds, clear to auscultation, no wheeze, rhonchi, rales or crackles. Non labored respirations HEART: Normal rate and rhythm, no murmurs or rubs ABDOMEN: soft, non-tender, non-distended, bowel sounds x 4 normoactive EXTRMITIES: No LE asymmetry, No LE edema, pedal pulses 1+ and radial pulses 2 + and equal bilaterally NEURO: Speech and comprehension appears intact. Cranial nerve II-XII grossly intact as examined. PSYCH: Cooperative, non- anxious or irritable, mood and affect is appropriate - Patient Status Disposition: Home, Self-Care Condition: Fair - Discharge Instructions Follow Up With: Lenin Ortega DO [Primary Care Provider] - 06/15/19 10:00 am (will see ) - Diet and Activity Activity: resume usual activities as tolerated Diet: diabetic diet
== END 2019-06-05 14:08 | disposition home or self-care (01) ==
LOC: EMEROOARM 23:50 → 2NNU 23:50 → SUATTDRO 06-04 03:56
PROVIDERS: ADMIT Internal Medicine Nephrology; ATTEND Pharmacist

== ENCOUNTER 2019-07-02 21:11 | Observation (INO) ==
[2019-07-02] MEDS ORDERED: *HR* Dextrose 50 % in Water (Syg) 50 ML SYRINGE IVP PRN ×2 (21:16→23:57)
--- NOTE | 2019-07-02 21:19 | Emergency Department Note ---
Disposition Clinical Impression: DKA (diabetic ketoacidoses) Qualifiers: Diabetes mellitus type: type 1 Diabetes mellitus complication detail: without coma Qualified Code(s): E10.10 - Type 1 diabetes mellitus with ketoacidosis without coma Disposition: Admitted As Inpatient Condition: Fair Time of Disposition: 23:04 General Adult HPI - General Stated complaint: blood sugar issues Time Seen by Provider: 07/02/19 21:15 - Related Data Home Medications Medication Instructions Recorded Confirmed Gabapentin [Neurontin] 600 mg PO TID 07/03/19 07/03/19 Phenytoin ER [Dilantin ER] 100 mg PO TID 07/03/19 07/03/19 Quetiapine Fumarate [Quetiapine 400 mg PO DAILY 07/03/19 07/03/19 Fumarate ER] Venlafaxine XR (24 HR) [Effexor XR] 225 mg PO DAILY 07/03/19 07/03/19 Previous Rx's Medication Instructions Recorded Insulin ASPART [Novolog Flexpen] 5 unit SQ TIDAC #1 insuln.pen 06/05/19 Insulin NPH Hum/Reg Insulin Hm 25 unit SQ BID #1 insuln.pen 06/05/19 [Humulin 70/30 Kwikpen] Allergies Allergy/AdvReac Type Severity Reaction Status Date / Time insulin glargine Allergy Blister Verified 07/03/19 09:10 [From Lantus] diphenhydramine AdvReac Intermediate See Verified 07/03/19 09:10 [From Benadryl] Comments Past Medical History - Past Medical History Medical history: Reports: diabetes, hepatitis, hyperlipidemia, hypertension, seizures, other Surgical history: Reports: orthopedic, other Psychiatric history: Reports: bipolar, prior suicide attempt, previous psychiatric hospitalization - Social History Smoking Status: Current every day smoker Smokeless Tobacco Status: No Alcohol use: Reports: rarely Drug use: Reports: opiates, methamphetamine, IV Drug Use, prescription drug abuse Course Vital Signs Temperature 98.6 F 07/02/19 21:15 Pulse Rate 110 07/02/19 21:15 Respiratory Rate 24 07/02/19 21:15 Blood Pressure 144/49 07/02/19 21:15 O2 Sat by Pulse Oximetry 98 07/02/19 21:15 Temperature 98.3 F 07/03/19 16:41 Pulse Rate 100 07/03/19 20:06 Respiratory Rate 17 07/03/19 20:06 Blood Pressure 122/71 07/03/19 20:06 O2 Sat by Pulse Oximetry 96 07/03/19 20:06 Oxygen Delivery Oxygen Delivery Room Air Medical Decision Making - Lab Data Result diagrams: 07/03/19 04:07 07/03/19 07:03 Lab Results 07/02/19 07/02/19 07/02/19 Range/Units 21:30 21:30 22:30 WBC 7.0 (4.3-11.1) K/mcL RBC 4.19 (4.19-5.50) M/mcL Hgb 11.9 L (12.9-16.9) g/dL Hct 37.3 L (37.5-50.1) % MCV 89.0 (83.0-100.0) fL MCH 28.4 (28.0-33.3) pg MCHC 31.9 (31.6-35.5) g/dL RDW 13.5 (11.5-14.5) % Plt Count 284 (140-400) K/mcL MPV 9.7 (9.4-12.4) fL Immature Gran % 0.3 (0-4) % Seg Neutrophils % 73.7 % Lymphocytes % 16.8 % Monocytes % 8.3 % Eosinophils % 0.3 % Basophils % 0.6 % Neutrophils # 5.2 (1.6-8.9) K/mcL Lymphocytes # 1.2 (0.6-4.6) K/mcL Monocytes # 0.6 (0.0-1.3) K/mcL Eosinophils # 0.0 (0.0-0.6) K/mcL Basophils # 0.0 (0.0-0.2) K/mcL VBG pH (7.32-7.42) pH Units VBG pCO2 (41-51) mmHg VBG pO2 (25-50) mmHg VBG HCO3 (21-27) mEq/L Sodium (136-145) mEq/L Potassium (3.5-5.1) mEq/L Chloride (98-107) mEq/L Carbon Dioxide (23-29) mEq/L BUN (6-20) mg/dL Creatinine (0.70-1.30) mg/dL Est GFR ( Amer) (> 60) Est GFR (Non-Af Amer) (> 60) BUN/Creatinine Ratio (6-26) Glucose (70-105) mg/dL POC Glucose (70-99) mg/dL Calculated Osmolality (280-300) Lactic Acid (0.5-2.2) mmol/L Calcium (8.6-10.3) mg/dL Total Bilirubin (0.3-1.0) mg/dL AST (13-39) Units/L ALT (7-52) Units/L Alkaline Phosphatase (34-104) Units/L Troponin I (< 0.04) ng/mL Serum Total Protein (6.4-8.9) g/dL Albumin (3.5-5.7) g/dL Globulin (2.4-3.5) g/dL Albumin/Globulin Ratio (1.1-2.2) Lipase (11-82) Units/L Beta-Hydroxybutyric Acd (0.02-0.27) mmol/L Urine Color Yellow (Yellow) Urine Clarity Clear (Clear) Urine pH 5.5 (5.0-8.0) pH Units Ur Specific [place] 1.027 H (1.010-1.025) Urine Protein Negative (Neg-Trace) mg/dL Urine Glucose (UA) >=1000 H (Normal) mg/dL Urine Ketones 80 H (Negative) mg/dL Urine Blood Negative (Negative) Urine Nitrite Negative (Negative) Urine Bilirubin Negative (Negative) Urine Urobilinogen Normal (Normal) mg/dL Ur Leukocyte Esterase Negative (Negative) Urine Opiates Screen Negative (Vfjfzz=445) ng/mL Ur Buprenorphine Scrn Negative (Cutoff=5) ng/mL Ur Barbiturates Screen Negative (Kmjtmm=694) ng/mL Ur Phencyclidine Scrn Negative (Cutoff=25) ng/mL Ur Amphetamines Screen Positive H (Slgsne=8067) ng/mL U Benzodiazepines Scrn Negative (Fxvzdx=060) ng/mL Urine Cocaine Screen Negative (Cutoff= 300) ng/mL U Marijuana (THC) Screen Negative (Cutoff = 50) ng/mL Ur Drug Screen Interp See Below 07/02/19 07/02/19 07/02/19 Range/Units 22:30 22:30 22:30 WBC (4.3-11.1) K/mcL RBC (4.19-5.50) M/mcL Hgb (12.9-16.9) g/dL Hct (37.5-50.1) % MCV (83.0-100.0) fL MCH (28.0-33.3) pg MCHC (31.6-35.5) g/dL RDW (11.5-14.5) % Plt Count (140-400) K/mcL MPV (9.4-12.4) fL Immature Gran % (0-4) % Seg Neutrophils % % Lymphocytes % % Monocytes % % Eosinophils % % Basophils % % Neutrophils # (1.6-8.9) K/mcL Lymphocytes # (0.6-4.6) K/mcL Monocytes # (0.0-1.3) K/mcL Eosinophils # (0.0-0.6) K/mcL Basophils # (0.0-0.2) K/mcL VBG pH (7.32-7.42) pH Units VBG pCO2 (41-51) mmHg VBG pO2 (25-50) mmHg VBG HCO3 (21-27) mEq/L Sodium 126 L (136-145) mEq/L Potassium 5.1 (3.5-5.1) mEq/L Chloride 88 L (98-107) mEq/L Carbon Dioxide 14 L (23-29) mEq/L BUN 25 H (6-20) mg/dL Creatinine 0.99 (0.70-1.30) mg/dL Est GFR ( Amer) > 60 (> 60) Est GFR (Non-Af Amer) > 60 (> 60) BUN/Creatinine Ratio 25 (6-26) Glucose 810 H* (70-105) mg/dL POC Glucose (70-99) mg/dL Calculated Osmolality 306 H (280-300) Lactic Acid 1.4 (0.5-2.2) mmol/L Calcium 9.6 (8.6-10.3) mg/dL Total Bilirubin (0.3-1.0) mg/dL AST (13-39) Units/L ALT (7-52) Units/L Alkaline Phosphatase (34-104) Units/L Troponin I < 0.03 (< 0.04) ng/mL Serum Total Protein (6.4-8.9) g/dL Albumin (3.5-5.7) g/dL Globulin (2.4-3.5) g/dL Albumin/Globulin Ratio (1.1-2.2) Lipase 12 (11-82) Units/L Beta-Hydroxybutyric Acd > 2.00 H (0.02-0.27) mmol/L Urine Color (Yellow) Urine Clarity (Clear) Urine pH (5.0-8.0) pH Units Ur Specific [place] (1.010-1.025) Urine Protein (Neg-Trace) mg/dL Urine Glucose (UA) (Normal) mg/dL Urine Ketones (Negative) mg/dL Urine Blood (Negative) Urine Nitrite (Negative) Urine Bilirubin (Negative) Urine Urobilinogen (Normal) mg/dL Ur Leukocyte Esterase (Negative) Urine Opiates Screen (Tagonv=038) ng/mL Ur Buprenorphine Scrn (Cutoff=5) ng/mL Ur Barbiturates Screen (Dvgazz=144) ng/mL Ur Phencyclidine Scrn (Cutoff=25) ng/mL Ur Amphetamines Screen (Xlnghk=4557) ng/mL U Benzodiazepines Scrn (Hssdke=343) ng/mL Urine Cocaine Screen (Cutoff= 300) ng/mL U Marijuana (THC) Screen (Cutoff = 50) ng/mL Ur Drug Screen Interp 07/02/19 07/02/19 07/02/19 Range/Units 22:46 22:47 22:50 WBC (4.3-11.1) K/mcL RBC (4.19-5.50) M/mcL Hgb (12.9-16.9) g/dL Hct (37.5-50.1) % MCV (83.0-100.0) fL MCH (28.0-33.3) pg MCHC (31.6-35.5) g/dL RDW (11.5-14.5) % Plt Count (140-400) K/mcL MPV (9.4-12.4) fL Immature Gran % (0-4) % Seg Neutrophils % % Lymphocytes % % Monocytes % % Eosinophils % % Basophils % % Neutrophils # (1.6-8.9) K/mcL Lymphocytes # (0.6-4.6) K/mcL Monocytes # (0.0-1.3) K/mcL Eosinophils # (0.0-0.6) K/mcL Basophils # (0.0-0.2) K/mcL VBG pH 7.33 (7.32-7.42) pH Units VBG pCO2 31 L (41-51) mmHg VBG pO2 144 H (25-50) mmHg VBG HCO3 17 L (21-27) mEq/L Sodium (136-145) mEq/L Potassium (3.5-5.1) mEq/L Chloride (98-107) mEq/L Carbon Dioxide (23-29) mEq/L BUN (6-20) mg/dL Creatinine (0.70-1.30) mg/dL Est GFR ( Amer) (> 60) Est GFR (Non-Af Amer) (> 60) BUN/Creatinine Ratio (6-26) Glucose (70-105) mg/dL POC Glucose > 600 H* > 600 H* (70-99) mg/dL Calculated Osmolality (280-300) Lactic Acid (0.5-2.2) mmol/L Calcium (8.6-10.3) mg/dL Total Bilirubin (0.3-1.0) mg/dL AST (13-39) Units/L ALT (7-52) Units/L Alkaline Phosphatase (34-104) Units/L Troponin I (< 0.04) ng/mL Serum Total Protein (6.4-8.9) g/dL Albumin (3.5-5.7) g/dL Globulin (2.4-3.5) g/dL Albumin/Globulin Ratio (1.1-2.2) Lipase (11-82) Units/L Beta-Hydroxybutyric Acd (0.02-0.27) mmol/L Urine Color (Yellow) Urine Clarity (Clear) Urine pH (5.0-8.0) pH Units Ur Specific [place] (1.010-1.025) Urine Protein (Neg-Trace) mg/dL Urine Glucose (UA) (Normal) mg/dL Urine Ketones (Negative) mg/dL Urine Blood (Negative) Urine Nitrite (Negative) Urine Bilirubin (Negative) Urine Urobilinogen (Normal) mg/dL Ur Leukocyte Esterase (Negative) Urine Opiates Screen (Bwyvwe=057) ng/mL Ur Buprenorphine Scrn (Cutoff=5) ng/mL Ur Barbiturates Screen (Oghpjp=882) ng/mL Ur Phencyclidine Scrn (Cutoff=25) ng/mL Ur Amphetamines Screen (Sgmwqe=5849) ng/mL U Benzodiazepines Scrn (Dimimm=295) ng/mL Urine Cocaine Screen (Cutoff= 300) ng/mL U Marijuana (THC) Screen (Cutoff = 50) ng/mL Ur Drug Screen Interp 07/03/19 07/03/19 07/03/19 Range/Units 01:20 01:22 02:52 WBC (4.3-11.1) K/mcL RBC (4.19-5.50) M/mcL Hgb (12.9-16.9) g/dL Hct (37.5-50.1) % MCV (83.0-100.0) fL MCH (28.0-33.3) pg MCHC (31.6-35.5) g/dL RDW (11.5-14.5) % Plt Count (140-400) K/mcL MPV (9.4-12.4) fL Immature Gran % (0-4) % Seg Neutrophils % % Lymphocytes % % Monocytes % % Eosinophils % % Basophils % % Neutrophils # (1.6-8.9) K/mcL Lymphocytes # (0.6-4.6) K/mcL Monocytes # (0.0-1.3) K/mcL Eosinophils # (0.0-0.6) K/mcL Basophils # (0.0-0.2) K/mcL VBG pH (7.32-7.42) pH Units VBG pCO2 (41-51) mmHg VBG pO2 (25-50) mmHg VBG HCO3 (21-27) mEq/L Sodium (136-145) mEq/L Potassium (3.5-5.1) mEq/L Chloride (98-107) mEq/L Carbon Dioxide (23-29) mEq/L BUN (6-20) mg/dL Creatinine (0.70-1.30) mg/dL Est GFR ( Amer) (> 60) Est GFR (Non-Af Amer) (> 60) BUN/Creatinine Ratio (6-26) Glucose (70-105) mg/dL POC Glucose > 600 H* 598 H* 511 H* (70-99) mg/dL Calculated Osmolality (280-300) Lactic Acid (0.5-2.2) mmol/L Calcium (8.6-10.3) mg/dL Total Bilirubin (0.3-1.0) mg/dL AST (13-39) Units/L ALT (7-52) Units/L Alkaline Phosphatase (34-104) Units/L Troponin I (< 0.04) ng/mL Serum Total Protein (6.4-8.9) g/dL Albumin (3.5-5.7) g/dL Globulin (2.4-3.5) g/dL Albumin/Globulin Ratio (1.1-2.2) Lipase (11-82) Units/L Beta-Hydroxybutyric Acd (0.02-0.27) mmol/L Urine Color (Yellow) Urine Clarity (Clear) Urine pH (5.0-8.0) pH Units Ur Specific [place] (1.010-1.025) Urine Protein (Neg-Trace) mg/dL Urine Glucose (UA) (Normal) mg/dL Urine Ketones (Negative) mg/dL Urine Blood (Negative) Urine Nitrite (Negative) Urine Bilirubin (Negative) Urine Urobilinogen (Normal) mg/dL Ur Leukocyte Esterase (Negative) Urine Opiates Screen (Pwjdce=665) ng/mL Ur Buprenorphine Scrn (Cutoff=5) ng/mL Ur Barbiturates Screen (Xyfwgg=161) ng/mL Ur Phencyclidine Scrn (Cutoff=25) ng/mL Ur Amphetamines Screen (Axjkgl=8584) ng/mL U Benzodiazepines Scrn (Lrqaqd=053) ng/mL Urine Cocaine Screen (Cutoff= 300) ng/mL U Marijuana (THC) Screen (Cutoff = 50) ng/mL Ur Drug Screen Interp 07/03/19 07/03/19 07/03/19 Range/Units 04:07 04:07 04:07 WBC 7.5 (4.3-11.1) K/mcL RBC 4.72 (4.19-5.50) M/mcL Hgb 13.5 D (12.9-16.9) g/dL Hct 42.7 (37.5-50.1) % MCV 90.5 (83.0-100.0) fL MCH 28.6 (28.0-33.3) pg MCHC 31.6 (31.6-35.5) g/dL RDW 13.3 (11.5-14.5) % Plt Count 319 (140-400) K/mcL MPV 9.2 L (9.4-12.4) fL Immature Gran % 0.5 (0-4) % Seg Neutrophils % 71.0 % Lymphocytes % 19.6 % Monocytes % 7.8 % Eosinophils % 0.4 % Basophils % 0.7 % Neutrophils # 5.3 (1.6-8.9) K/mcL Lymphocytes # 1.5 (0.6-4.6) K/mcL Monocytes # 0.6 (0.0-1.3) K/mcL Eosinophils # 0.0 (0.0-0.6) K/mcL Basophils # 0.1 (0.0-0.2) K/mcL VBG pH (7.32-7.42) pH Units VBG pCO2 (41-51) mmHg VBG pO2 (25-50) mmHg VBG HCO3 (21-27) mEq/L Sodium 136 D (136-145) mEq/L Potassium 4.2 (3.5-5.1) mEq/L Chloride 103 (98-107) mEq/L Carbon Dioxide 18 L (23-29) mEq/L BUN 20 (6-20) mg/dL Creatinine 0.83 (0.70-1.30) mg/dL Est GFR ( Amer) > 60 (> 60) Est GFR (Non-Af Amer) > 60 (> 60) BUN/Creatinine Ratio 24 (6-26) Glucose 321 H (70-105) mg/dL POC Glucose (70-99) mg/dL Calculated Osmolality 297 (280-300) Lactic Acid 1.3 (0.5-2.2) mmol/L Calcium 9.1 (8.6-10.3) mg/dL Total Bilirubin 0.4 (0.3-1.0) mg/dL AST 42 H (13-39) Units/L ALT 45 (7-52) Units/L Alkaline Phosphatase 114 H (34-104) Units/L Troponin I (< 0.04) ng/mL Serum Total Protein 6.6 (6.4-8.9) g/dL Albumin 4.1 (3.5-5.7) g/dL Globulin 2.5 (2.4-3.5) g/dL Albumin/Globulin Ratio 1.6 (1.1-2.2) Lipase (11-82) Units/L Beta-Hydroxybutyric Acd (0.02-0.27) mmol/L Urine Color (Yellow) Urine Clarity (Clear) Urine pH (5.0-8.0) pH Units Ur Specific [place] (1.010-1.025) Urine Protein (Neg-Trace) mg/dL Urine Glucose (UA) (Normal) mg/dL Urine Ketones (Negative) mg/dL Urine Blood (Negative) Urine Nitrite (Negative) Urine Bilirubin (Negative) Urine Urobilinogen (Normal) mg/dL Ur Leukocyte Esterase (Negative) Urine Opiates Screen (Vjmjgg=911) ng/mL Ur Buprenorphine Scrn (Cutoff=5) ng/mL Ur Barbiturates Screen (Csehhp=119) ng/mL Ur Phencyclidine Scrn (Cutoff=25) ng/mL Ur Amphetamines Screen (Ngqasd=6081) ng/mL U Benzodiazepines Scrn (Cpsnau=440) ng/mL Urine Cocaine Screen (Cutoff= 300) ng/mL U Marijuana (THC) Screen (Cutoff = 50) ng/mL Ur Drug Screen Interp 07/03/19 Range/Units 04:09 WBC (4.3-11.1) K/mcL RBC (4.19-5.50) M/mcL Hgb (12.9-16.9) g/dL Hct (37.5-50.1) % MCV (83.0-100.0) fL MCH (28.0-33.3) pg MCHC (31.6-35.5) g/dL RDW (11.5-14.5) % Plt Count (140-400) K/mcL MPV (9.4-12.4) fL Immature Gran % (0-4) % Seg Neutrophils % % Lymphocytes % % Monocytes % % Eosinophils % % Basophils % % Neutrophils # (1.6-8.9) K/mcL Lymphocytes # (0.6-4.6) K/mcL Monocytes # (0.0-1.3) K/mcL Eosinophils # (0.0-0.6) K/mcL Basophils # (0.0-0.2) K/mcL VBG pH (7.32-7.42) pH Units VBG pCO2 (41-51) mmHg VBG pO2 (25-50) mmHg VBG HCO3 (21-27) mEq/L Sodium (136-145) mEq/L Potassium (3.5-5.1) mEq/L Chloride (98-107) mEq/L Carbon Dioxide (23-29) mEq/L BUN (6-20) mg/dL Creatinine (0.70-1.30) mg/dL Est GFR ( Amer) (> 60) Est GFR (Non-Af Amer) (> 60) BUN/Creatinine Ratio (6-26) Glucose (70-105) mg/dL POC Glucose 391 H (70-99) mg/dL Calculated Osmolality (280-300) Lactic Acid (0.5-2.2) mmol/L Calcium (8.6-10.3) mg/dL Total Bilirubin (0.3-1.0) mg/dL AST (13-39) Units/L ALT (7-52) Units/L Alkaline Phosphatase (34-104) Units/L Troponin I (< 0.04) ng/mL Serum Total Protein (6.4-8.9) g/dL Albumin (3.5-5.7) g/dL Globulin (2.4-3.5) g/dL Albumin/Globulin Ratio (1.1-2.2) Lipase (11-82) Units/L Beta-Hydroxybutyric Acd (0.02-0.27) mmol/L Urine Color (Yellow) Urine Clarity (Clear) Urine pH (5.0-8.0) pH Units Ur Specific [place] (1.010-1.025) Urine Protein (Neg-Trace) mg/dL Urine Glucose (UA) (Normal) mg/dL Urine Ketones (Negative) mg/dL Urine Blood (Negative) Urine Nitrite (Negative) Urine Bilirubin (Negative) Urine Urobilinogen (Normal) mg/dL Ur Leukocyte Esterase (Negative) Urine Opiates Screen (Oyfpnw=938) ng/mL Ur Buprenorphine Scrn (Cutoff=5) ng/mL Ur Barbiturates Screen (Bxgzjh=638) ng/mL Ur Phencyclidine Scrn (Cutoff=25) ng/mL Ur Amphetamines Screen (Jsupwc=5044) ng/mL U Benzodiazepines Scrn (Dpowyx=401) ng/mL Urine Cocaine Screen (Cutoff= 300) ng/mL U Marijuana (THC) Screen (Cutoff = 50) ng/mL Ur Drug Screen Interp Attestation Statement - Attestation Attestation: I examined this patient and my medical decision-making was reviewed with the Resident Physician. I agree with the documented findings, disposition and treat ment plan as described except to the extent set forth below. Patient 33-year-old gentleman is a well-known diabetic that has been off his insulin for 10 days the patient presents with nausea vomiting and hyperglycemia Physical exam patient is awake alert nauseated tachycardic Medical decision management the patient's blood sugar will be obtained the patient will be determined his pH has been under hydroxybutyrate status and the patient will be given 2 L normal saline is started on DKA protocol patient will be admitted to the hospital for further management. I personally supervised and was present for the tovar/critical portions of the following procedures completed by the resident:EKG.
[2019-07-02] MEDS ORDERED: Ondansetron 4 MG/2 ML VIAL IVP ONE (21:20)
--- NOTE | 2019-07-02 21:20 | Emergency Department Note ---
Disposition Clinical Impression: DKA (diabetic ketoacidoses) Qualifiers: Diabetes mellitus type: type 1 Diabetes mellitus complication detail: without coma Qualified Code(s): E10.10 - Type 1 diabetes mellitus with ketoacidosis without coma Disposition: Admitted As Inpatient Condition: Fair Referrals: NONE,PCP [Primary Care Provider] - Time of Disposition: 00:51 General Adult HPI - General Stated complaint: blood sugar issues Time Seen by Provider: 07/02/19 21:15 Source: patient, EMS Mode of arrival: EMS Nursing Notes Reviewed: Yes Vital Signs Reviewed: Yes - History of Present Illness HPI Narrative: Patient is a 33-year-old male who is presenting via EMS for diabetes concern. Patient known history of type 1 insulin-dependent diabetes. Patient states that last known methamphetamine use was earlier today. Patient states that he has been out of his insulin for the past week, "the police took my medications and I had no insulin ". He states for the past few days he has been having nausea with vomiting and diffuse abdominal pain. He denies any diarrhea, fevers or chills. He denies any chest pain or shortness of breath. He states this is usually how he becomes when he is in DKA. He has been attempting to drink more water today but has not had difficulty urinating. Further information was difficult to obtain for the patient secondary to combative nature. - Related Data Previous Rx's Medication Instructions Recorded Alcohol Antiseptic Pads [Alcohol 1 each QID #100 med..pad 06/05/19 Pads] Blood Sugar Diagnostic [Accu-Chek 1 each QID #100 strip 06/05/19 Guide Test Strip] Blood-Glucose Meter, Drum-Type 1 each WD #1 kit 06/05/19 [Accu-Chek] Insulin ASPART [Novolog Flexpen] 5 unit SQ TIDAC #1 insuln.pen 06/05/19 Insulin NPH Hum/Reg Insulin Hm 25 unit SQ BID #1 insuln.pen 06/05/19 [Humulin 70/30 Kwikpen] Lancets 1 each QID #100 each 06/05/19 Allergies Allergy/AdvReac Type Severity Reaction Status Date / Time insulin glargine Allergy Blister Verified 03/23/19 23:42 [From Lantus] diphenhydramine AdvReac Intermediate See Verified 03/23/19 23:42 [From Benadryl] Comments All systems ED: reviewed and negative except as stated. Review of Systems: As Per HPI Constitutional: Denies: fever, chills ENT ED: Denies: congestion Cardiovascular: Denies: chest pain, palpitations, dyspnea on exertion Respiratory: Denies: cough, dyspnea, wheezes Gastrointestinal: Reports: abdominal pain, nausea, vomiting. Denies: diarrhea, constipation, hematemesis, melena, hematochezia Genitourinary: Denies: urgency, dysuria, frequency Musculoskeletal: Denies: back pain Integumentary: Denies: rash Neurological: Denies: headache, weakness, confusion Past Medical History - Past Medical History Medical history: Reports: diabetes, hepatitis, hyperlipidemia, hypertension, seizures, other Surgical history: Reports: orthopedic, other Psychiatric history: Reports: bipolar, prior suicide attempt, previous psychiatric hospitalization - Social History Smoking Status: Current every day smoker Smokeless Tobacco Status: No Alcohol use: Reports: rarely Drug use: Reports: opiates, methamphetamine, IV Drug Use, prescription drug abuse Physical Exam - General Limitations: other (Patient is agitated and combative) General appearance: alert, appears intoxicated, anxious - Head Head exam: atraumatic, normocephalic, normal inspection - Eye Eye exam: Present: normal appearance, PERRL, EOMI - ENT ENT exam: mucous membranes dry - Chest Chest inspection: Present: normal inspection, symmetric chest wall rise - Respiratory Respiratory exam: Present: normal lung sounds bilaterally - Cardiovascular Cardiovascular exam: Present: normal rhythm, tachycardia - Abdominal Exam Abdominal exam: Present: soft, Non-Tender. Absent: tenderness, distention, guarding, rebound, rigidity - Extremities Exam Extremities exam: Present: normal inspection, full ROM. Absent: tenderness, pedal edema - Expanded Lower Extremity Exam Neurovascular/Tendon exam: Absent: motor deficit, sensory deficit, tendon deficit - Neurological Exam Neurological exam: Present: alert, oriented X3 - Expanded Neurological Exam Patient oriented to: Present: person, place, time Speech: Present: fluid speech Motor strength - LUE: 5/5 Motor strength - RUE: 5/5 Motor strength - LLE: 5/5 Motor strength - RLE: 5/5 Sensory exam upper extremity: light touch: Normal Sensory exam lower extremity: light touch: Normal Coma Scale Eye Opening: Spontaneous Coma Scale Motor Response: Obeys Commands Coma Scale Verbal Response: Oriented Coma Scale Total: 15 - Psychiatric Psychiatric exam: Present: normal affect, normal mood - Skin Skin exam: Present: warm, dry, intact, normal color Course Vital Signs Temperature 98.6 F 07/02/19 21:15 Pulse Rate 110 07/02/19 21:15 Respiratory Rate 24 07/02/19 21:15 Blood Pressure 144/49 07/02/19 21:15 O2 Sat by Pulse Oximetry 98 07/02/19 21:15 Temperature 98.6 F 07/02/19 21:15 Pulse Rate 100 07/02/19 23:41 Respiratory Rate 18 07/02/19 23:41 Blood Pressure 136/85 07/02/19 23:41 O2 Sat by Pulse Oximetry 99 07/02/19 23:41 Oxygen Delivery Oxygen Delivery Room Air Medical Decision Making - MDM Narrative Medical decision making narrative: Patient is a 33-year-old male presenting with concern for DKA. Patient is brought in via EMS, on arrival, patient is agitated and combative, known history of type 1 insulin-dependent diabetes mellitus. Has not used his medication for the past week. He should be on insulin daily. Patient with known history of methamphetamine use. Patient was initially agitated, 1 mg of Ativan was given. DKA lab order set as well as infectious etiology labs and imaging was performed including chest x-ray. Again patient became agitated and combative, 1 mg of Ativan was given again. Patient did calm down after the second dose. 2 L normal saline was also given with concern for DKA. We will hold off on potassium replacement and insulin until laboratory work is resulted. Lab work shows an anion gap of 21, hyperglycemia with a blood sugar in the 800s, patient has positive ketones in his serum and urine, patient is slightly acidotic with a pH and VBG of 7.33. With this, patient is in DKA, he is given a total of 2 L of normal saline, with his initial third liter will add 20 meq of potassium. Patient will be admitted for further treatment. I did speak with Dr. Rubin, who has admitted the patient, we will give the patient insulin as well as start him on an insulin drip. Patient agrees to admission. EKG, chest x-ray and troponin are all within normal limits, no sign of infectious etiology for DKA. Suspect this is medication noncompliance. - Medical Records Medical records reviewed: Yes I reviewed the patient's medical records. - Lab Data Lab results reviewed: Yes I reviewed the patient's lab results. Result diagrams: 07/02/19 22:30 07/02/19 22:30 Lab Results 07/02/19 07/02/19 07/02/19 Range/Units 21:30 22:30 22:30 WBC 7.0 (4.3-11.1) K/mcL RBC 4.19 (4.19-5.50) M/mcL Hgb 11.9 L (12.9-16.9) g/dL Hct 37.3 L (37.5-50.1) % MCV 89.0 (83.0-100.0) fL MCH 28.4 (28.0-33.3) pg MCHC 31.9 (31.6-35.5) g/dL RDW 13.5 (11.5-14.5) % Plt Count 284 (140-400) K/mcL MPV 9.7 (9.4-12.4) fL Immature Gran % 0.3 (0-4) % Seg Neutrophils % 73.7 % Lymphocytes % 16.8 % Monocytes % 8.3 % Eosinophils % 0.3 % Basophils % 0.6 % Neutrophils # 5.2 (1.6-8.9) K/mcL Lymphocytes # 1.2 (0.6-4.6) K/mcL Monocytes # 0.6 (0.0-1.3) K/mcL Eosinophils # 0.0 (0.0-0.6) K/mcL Basophils # 0.0 (0.0-0.2) K/mcL VBG pH (7.32-7.42) pH Units VBG pCO2 (41-51) mmHg VBG pO2 (25-50) mmHg VBG HCO3 (21-27) mEq/L Sodium 126 L (136-145) mEq/L Potassium 5.1 (3.5-5.1) mEq/L Chloride 88 L (98-107) mEq/L Carbon Dioxide 14 L (23-29) mEq/L BUN 25 H (6-20) mg/dL Creatinine 0.99 (0.70-1.30) mg/dL Est GFR ( Amer) > 60 (> 60) Est GFR (Non-Af Amer) > 60 (> 60) BUN/Creatinine Ratio 25 (6-26) Glucose 810 H* (70-105) mg/dL Calculated Osmolality 306 H (280-300) Lactic Acid (0.5-2.2) mmol/L Calcium 9.6 (8.6-10.3) mg/dL Troponin I < 0.03 (< 0.04) ng/mL Lipase 12 (11-82) Units/L Beta-Hydroxybutyric Acd (0.02-0.27) mmol/L Urine Color Yellow (Yellow) Urine Clarity Clear (Clear) Urine pH 5.5 (5.0-8.0) pH Units Ur Specific [place] 1.027 H (1.010-1.025) Urine Protein Negative (Neg-Trace) mg/dL Urine Glucose (UA) >=1000 H (Normal) mg/dL Urine Ketones 80 H (Negative) mg/dL Urine Blood Negative (Negative) Urine Nitrite Negative (Negative) Urine Bilirubin Negative (Negative) Urine Urobilinogen Normal (Normal) mg/dL Ur Leukocyte Esterase Negative (Negative) 07/02/19 07/02/19 07/02/19 Range/Units 22:30 22:30 22:50 WBC (4.3-11.1) K/mcL RBC (4.19-5.50) M/mcL Hgb (12.9-16.9) g/dL Hct (37.5-50.1) % MCV (83.0-100.0) fL MCH (28.0-33.3) pg MCHC (31.6-35.5) g/dL RDW (11.5-14.5) % Plt Count (140-400) K/mcL MPV (9.4-12.4) fL Immature Gran % (0-4) % Seg Neutrophils % % Lymphocytes % % Monocytes % % Eosinophils % % Basophils % % Neutrophils # (1.6-8.9) K/mcL Lymphocytes # (0.6-4.6) K/mcL Monocytes # (0.0-1.3) K/mcL Eosinophils # (0.0-0.6) K/mcL Basophils # (0.0-0.2) K/mcL VBG pH 7.33 (7.32-7.42) pH Units VBG pCO2 31 L (41-51) mmHg VBG pO2 144 H (25-50) mmHg VBG HCO3 17 L (21-27) mEq/L Sodium (136-145) mEq/L Potassium (3.5-5.1) mEq/L Chloride (98-107) mEq/L Carbon Dioxide (23-29) mEq/L BUN (6-20) mg/dL Creatinine (0.70-1.30) mg/dL Est GFR ( Amer) (> 60) Est GFR (Non-Af Amer) (> 60) BUN/Creatinine Ratio (6-26) Glucose (70-105) mg/dL Calculated Osmolality (280-300) Lactic Acid 1.4 (0.5-2.2) mmol/L Calcium (8.6-10.3) mg/dL Troponin I (< 0.04) ng/mL Lipase (11-82) Units/L Beta-Hydroxybutyric Acd > 2.00 H (0.02-0.27) mmol/L Urine Color (Yellow) Urine Clarity (Clear) Urine pH (5.0-8.0) pH Units Ur Specific [place] (1.010-1.025) Urine Protein (Neg-Trace) mg/dL Urine Glucose (UA) (Normal) mg/dL Urine Ketones (Negative) mg/dL Urine Blood (Negative) Urine Nitrite (Negative) Urine Bilirubin (Negative) Urine Urobilinogen (Normal) mg/dL Ur Leukocyte Esterase (Negative) - Radiology Data Radiology results reviewed: Yes I reviewed the patient's radiology results. Chest X-Ray 07/02/19 21:17 IMPRESSION: No acute cardiopulmonary disease. D/ / Kyle Evangelista MD / Kyle Evangelista MD Interpreting Provider: Kyle Evangelista MD - EKG Data EKG #1 EKG attestation: Yes I reviewed and interpreted this EKG. EKG results narrative: EKG performed at 2250 with ventricular rate of 108, regular rhythm, normal axis, possible U wave noted, no ST segment elevation, depression
[2019-07-02] MEDS ORDERED: *HR* LORazepam 2 MG/ML VIAL IM ONE (21:30)
[2019-07-02 21:39] LABS: Bilirubin,Urine Negative (Negative); Blood,Urine Negative (Negative); Clarity,Urine Clear (Clear); Color,Urine Yellow (Yellow); Glucose,Urine (UA) >=1000 mg/dL (Normal); Ketones,Urine 80 mg/dL (Negative); Leukocyte Esterase,Urine Negative (Negative); Nitrite,Urine Negative (Negative); PH,Urine 5.5 pH Units (5.0-8.0); Protein,Urine Negative (Neg-Trace); Specific Gravity,Urine 1.027 (1.010-1.025); Urobilinogen,Urine Normal (Normal)
[2019-07-02] MEDS: 0.9 % Sodium Chloride 1,000 ML IVC SCH ×2 (22:38→23:40)
[2019-07-02 22:55] LABS: Basophils % 0.6 %; Eosinophils % 0.3 %; Hematocrit 37.3 % (37.5-50.1); Hemoglobin 11.9 g/dL (12.9-16.9); Immature Granulocytes % 0.3 % (0-4); Lymphocytes # 1.2 K/mcL (0.6-4.6); Lymphocytes % 16.8 %; Mean Corpuscular HGB Conc 31.9 g/dL (31.6-35.5); Mean Corpuscular Hemoglobin 28.4 pg (28.0-33.3); Mean Platelet Volume 9.7 fL (9.4-12.4); Monocytes # 0.6 K/mcL (0.0-1.3); Monocytes % 8.3 %; Neutrophils # 5.2 K/mcL (1.6-8.9); Platelet Count 284 K/mcL (140-400); Red Blood Count 4.19 M/mcL (4.19-5.50); Red Cell Distribution Width 13.5 % (11.5-14.5); Segmented Neutrophils % 73.7 %
[2019-07-02 22:55] LABS: VBG HCO3 17 mEq/L (21-27); VBG PCO2 31 mmHg (41-51); VBG PH 7.33 pH Units (7.32-7.42); VBG PO2 144 mmHg (25-50)
[2019-07-02 23:14] LABS: Troponin I < 0.03 ng/mL (< 0.04)
[2019-07-02 23:15] LABS: BUN/Creatinine Ratio 25 (6-26); Blood Urea Nitrogen 25 mg/dL (6-20); Calcium 9.6 mg/dL (8.6-10.3); Carbon Dioxide 14 mEq/L (23-29); Chloride 88 mEq/L (98-107); Lipase 12 Units/L (11-82); Potassium 5.1 mEq/L (3.5-5.1); Sodium 126 mEq/L (136-145); eGFR For African Americans > 60 (> 60); eGFR For Non-African Americans > 60 (> 60)
[2019-07-02] MEDS ORDERED: Potassium Chloride Elixir 20 MEQ/15 ML UDC PO ONE (23:19)
[2019-07-02] MEDS ORDERED: 0.9 % Sodium Chloride 1,000 ML IVC ONE (23:22)
[2019-07-02 23:28] LABS: Glucose 810 mg/dL (70-105); Osmolality,Calculated 306 (280-300)
[2019-07-02] MEDS ORDERED: *HR* LORazepam 2 MG/ML VIAL IVP ONE (23:30)
[2019-07-02] MEDS ORDERED: Insulin Regular, Human 100 UNIT/ML IV ONE (23:37)
[2019-07-02] MEDS ORDERED: 0.9 % Sodium Chloride w KCl 20 MEQ/1,000 ML MLS IVC SCH (23:45)
[2019-07-02] MEDS ORDERED: Insulin Human Regular 100 UNIT in 0.9 % Sodium Chloride 100 ML IVC SCH (23:45)
[2019-07-03] MEDS ORDERED: *HR* Dextrose 50 % in Water (Syg) 50 ML SYRINGE IVP PRN ×2 (00:28→09:10)
[2019-07-03] MEDS ORDERED: Insulin Regular, Human 100 UNIT/ML IV PRN (00:28)
[2019-07-03] MEDS ORDERED: D5% in 0.45% NACL 1,000 ML IVC PRN (00:28)
[2019-07-03] MEDS ORDERED: 0.45 % Sodium Chloride w/KCl 20 MEQ/1,000 ML MLS IVC SCH (00:30)
[2019-07-03] MEDS ORDERED: Naloxone 0.4 MG/ML INJ IVP PRN (00:33)
--- NOTE | 2019-07-03 01:28 | Internal Med History&Physical ---
<Vishal Neely - Last Filed: 07/03/19 06:01> Date of Encounter: 07/03/19 Time of Encounter: 03:10 Internal Medicine - H&P: HPI History of present illness: Mr. Lemus is a 33-year-old male with a PMH of DM, HLD, HTN, hepatitis, seizures, schizoaffective disorder, history of IVDU and methamphetamine use who presented to [facility] ED on 07/03/19 the chief complaint of nausea, vomiting, and d iffuse abdominal pain. He has a known history of type 1 diabetes mellitus. Reports that he had been out of his insulin for the past week, claiming that the police took his medications. He states that the way he is feeling now is usually what happens when he goes into DKA. He has a history of multiple previous admissions for DKA. Patient reportedly used methamphetamine earlier in the day. Patient was noted to be agitated and combative on arrival via EMS. On arrival, vital signs demonstrated an elevated heart rate at 110 bpm, a respiratory rate of 24/m, and elevated blood pressure at 144/49. VBG showed pH 7.33, CO2 31, O2 144, and HCO3 17. Labs showed sodium 126, glucose 810, beta hydroxybutyric acid >2. CXR demonstrated no acute process. EKG showed rate 108 with a possible U wave. Due to his agitation and combativeness, 2 doses of Ativan were administered. He was also given 2 L of normal saline and was given potassium replacement. Insulin drip was started per DKA protocol. During my assessment, patient was not cooperative with exam. He was lying on his side partially curled up and appeared to be shivering. His close appear to be soaked in urine, and there is a very strong urine odor present in the room. He did not answer any questions. Did not respond to tactile stimuli, and appeared to hold his eyes closed. He would briefly open his eyes, and then turn the other way. Physical exam was limited due to lack of patient cooperation. He does appear to have dry mucous membranes. Our plan is to initiate insulin drip per DKA protocol and recheck labs. We will keep him nothing by mouth in order glucose checks every hour. We will also draw serial BMPs and replace electrolytes as necessary. Medical history: T1DM, hepatitis, HLD, HTN, seizures Social history: Current every day smoker, history of opiate, methamphetamine, and intravenous drug use Past Med Surg Social Fam HX - Past Medical History Medical history: diabetes, hepatitis, hyperlipidemia, hypertension, seizures, other Additional medical history: Hep c IVDU Psychiatric history: bipolar, prior suicide attempt, previous psychiatric hospitalization - Past Surgical History Surgical History: orthopedic, other Additional surgical history: right ankle - Social History Smoking Status: Current every day smoker Smokeless Tobacco Status: No Alcohol use: rarely Drug use: opiates, methamphetamine, IV Drug Use, prescription drug abuse - Family History Father Family Member Ethnicity: Non- Living Status: Hx Family Cardiac Disorders: Yes (PR) Hx Family Endocrine Disorder: Yes (DM) Mother Family Member Ethnicity: Non- Living Status: Still Living Sister Family Member Ethnicity: Non- Living Status: Still Living Internal Medicine - H&P: Meds Alcohol Antiseptic Pads [Alcohol Pads] 1 each TP QID #100 med..pad 06/05/19 [Rx] Blood Sugar Diagnostic [Accu-Chek Guide Test Strip] 1 each MC QID #100 strip 06/05/19 [Rx] Blood-Glucose Meter, Drum-Type [Accu-Chek] 1 each WD #1 kit 06/05/19 [Rx] Insulin ASPART [Novolog Flexpen] 5 unit SQ TIDAC #1 insuln.pen 06/05/19 [Rx] Insulin NPH Hum/Reg Insulin Hm [Humulin 70/30 Kwikpen] 25 unit SQ BID #1 insuln.pen 06/05/19 [Rx] Lancets 1 each MC QID #100 each 06/05/19 [Rx] Allergy/AdvReac Type Severity Reaction Status Date / Time insulin glargine Allergy Blister Verified 03/23/19 23:42 [From Lantus] diphenhydramine AdvReac Intermediate See Verified 03/23/19 23:42 [From Benadryl] Comments All Systems PM: A 10-system review of systems was performed and is negative for pertinent findings except as documented above in the HPI. - Constitutional Vitals: Temp Pulse Resp BP Pulse Ox 98.6 F 88 17 126/82 100 07/02/19 21:15 07/03/19 01:18 07/03/19 01:18 07/03/19 01:18 07/03/19 01:18 Exam: Physical exam Limited due to lack of patient cooperation General: Non-conversant, unkempt; does not respond to stimuli and does not answer questions; clothes appear to be soaked in urine Head: atraumatic, normocephalic Eye: Unable to assess due to patient holding eyes closed Neck: Supple, trachea midline; No lymphadenopathy Respiratory: Unable to complete full respiratory exam due to patients refusal to turn over; no appearance of respiratory distress or tachypnea; no accessory muscle use Cardiovascular: RRR, +S1, +S2; no murmurs, rubs, gallops Abdomen: Soft, nondistended Extremities: No clubbing, edema, or cyanosis Neurological: Unable to assess Psychiatric: Unable to assess Skin: Multiple tattoos present; diaphoresis Internal Med - H&P Results - Labs CBC & Chem 7: 07/03/19 04:07 07/03/19 04:07 Labs: Short CBC 07/02/19 Range/Units 22:30 WBC 7.0 (4.3-11.1) K/mcL Hgb 11.9 L (12.9-16.9) g/dL Hct 37.3 L (37.5-50.1) % Plt Count 284 (140-400) K/mcL Neutrophils # 5.2 (1.6-8.9) K/mcL BMP 07/02/19 22:30 Sodium 126 L Potassium 5.1 Chloride 88 L Carbon Dioxide 14 L BUN 25 H Creatinine 0.99 Glucose 810 H* Calcium 9.6 Cardiac Enzymes 07/02/19 Range/Units 22:30 Troponin I < 0.03 (< 0.04) ng/mL Urine 07/02/19 Range/Units 21:30 Urine Color Yellow (Yellow) Urine Clarity Clear (Clear) Urine pH 5.5 (5.0-8.0) pH Units Ur Specific [place] 1.027 H (1.010-1.025) Urine Protein Negative (Neg-Trace) mg/dL Urine Glucose (UA) >=1000 H (Normal) mg/dL - ABG Interpretation ABG results: 07/02/19 22:50 VBG pH 7.33 VBG pCO2 31 L VBG pO2 144 H VBG HCO3 17 L - Impressions ITS Impressions Chest X-Ray 07/02/19 21:17 IMPRESSION: No acute cardiopulmonary disease. D/ / Kyle Evangelista MD / Kyle Evangelista MD Interpreting Provider: Kyle Evangelista MD - Assessment and Plan (1) DKA (diabetic ketoacidoses) Current Visit: Yes Status: Acute Assessment and plan: Assessment - Patient presented with abdominal pain, nausea, vomiting; presentation is consistent with patients prior symptoms of DKA - Known history of T1 DM with medication noncompliance; history of multiple prior admissions for DKA - No overt signs of infection - Found to be hyperglycemic on laboratory analysis with a glucose level of 802 - Beta hydroxybutyric acid greater then 2 - Received 2 L of normal saline in the emergency department - Was started on insulin drip per DKA/HHS protocol; transition to SQ insulin once glucose is better controlled - ABG is currently pending Plan - Continue treatment per DKA protocol with insulin drip - Accu-Cheks every hour, serial BMPs Q2H - Serial BMPs, replete electrolytes as necessary Qualifiers: Diabetes mellitus type: type 1 Diabetes mellitus complication detail: without coma Qualified Code(s): E10.10 - Type 1 diabetes mellitus with ketoacidosis without coma (2) History of seizure disorder Current Visit: Yes Status: Acute Assessment and plan: - Patient has a known history of seizure disorder - No evidence of seizure activity at this time - Previous visits indicate that he was taken Dilantin in the past, but current medication list has not yet been reconciled - Resume home medications when able to take by mouth (3) Drug abuse Current Visit: Yes Status: Acute Assessment and plan: - Patient has a known history of substance abuse, including opiates, methamphetamine, and IVDU - Patient reportedly took methamphetamine earlier in the day - Urine drug screen is currently pending - Consult to social work has been placed (4) Hypertension Current Visit: Yes Status: Acute Assessment and plan: - Patient has a documented history of hypertension - Blood pressure is well controlled at this time (5) DVT prophylaxis Current Visit: Yes Status: Acute Assessment and plan: - SQ Heparin 5000 Q12 - Time Spent With Patient Total time spent is greater than 50% in coordination of care (as documented) at patient's floor/unit and/or counseling patient: <Marcus Rubin - Last Filed: 07/03/19 07:41> Date of Encounter: 07/03/19 Internal Medicine - H&P: HPI History of present illness: Mr. Lemus is a 33 year old male All Systems PM: A 10-system review of systems was performed and is negative for pertinent findings except as documented above in the HPI. - Constitutional Vitals: Temp Pulse Resp BP Pulse Ox 98.6 F 69 18 127/75 100 07/02/19 21:15 07/03/19 06:36 07/03/19 06:36 07/03/19 06:36 07/03/19 05:27 Internal Med - H&P Results - Labs CBC & Chem 7: 07/03/19 04:07 07/03/19 04:07 Labs: Short CBC 07/02/19 07/03/19 Range/Units 22:30 04:07 WBC 7.0 7.5 (4.3-11.1) K/mcL Hgb 11.9 L 13.5 D (12.9-16.9) g/dL Hct 37.3 L 42.7 (37.5-50.1) % Plt Count 284 319 (140-400) K/mcL Neutrophils # 5.2 5.3 (1.6-8.9) K/mcL BMP 07/02/19 07/03/19 22:30 04:07 Sodium 126 L 136 D Potassium 5.1 4.2 Chloride 88 L 103 Carbon Dioxide 14 L 18 L BUN 25 H 20 Creatinine 0.99 0.83 Glucose 810 H* 321 H Calcium 9.6 9.1 Cardiac Enzymes 07/02/19 Range/Units 22:30 Troponin I < 0.03 (< 0.04) ng/mL Liver Function 07/03/19 Range/Units 04:07 Total Bilirubin 0.4 (0.3-1.0) mg/dL AST 42 H (13-39) Units/L ALT 45 (7-52) Units/L Alkaline Phosphatase 114 H (34-104) Units/L Albumin 4.1 (3.5-5.7) g/dL Urine 07/02/19 Range/Units 21:30 Urine Color Yellow (Yellow) Urine Clarity Clear (Clear) Urine pH 5.5 (5.0-8.0) pH Units Ur Specific [place] 1.027 H (1.010-1.025) Urine Protein Negative (Neg-Trace) mg/dL Urine Glucose (UA) >=1000 H (Normal) mg/dL - ABG Interpretation ABG results: 07/02/19 22:50 VBG pH 7.33 VBG pCO2 31 L VBG pO2 144 H VBG HCO3 17 L - Impressions ITS Impressions Chest X-Ray 07/02/19 21:17 IMPRESSION: No acute cardiopulmonary disease. D/ / Kyle Evangelista MD / Kyle Evangelista MD Interpreting Provider: Kyle Evangelista MD - Time Spent With Patient Total time spent is greater than 50% in coordination of care (as documented) at patient's floor/unit and/or counseling patient: - Attending Attestation I performed a history and physical examination of the patient and discussed his management with the resident. I reviewed the resident's note and agree with the assessment and plan of care. Patient is a 33-year-old male with past medical history of type 1 diabetes and polysubstance abuse with multiple recurrent admissions for DKA who presented to the ED with hyperglycemia concerning for DKA. Per report patient stated that has been out of his insulin for the past week after police had confiscated all his medications. Found to have a blood glucose of 810 and positive urine toxicology for amphetamines. Patient was last admitted in April for the same. At the time hospice social worker offered him rehabilitation which he declined. We will admit once again and treat under DKA protocol.
[2019-07-03 03:39] LABS: Amphetamine Screen,Urine Positive ng/mL (Cutoff=1000); Barbiturate Screen,Urine Negative ng/mL (Cutoff=200); Benzodiazepines Screen,Urine Negative ng/mL (Cutoff=200); Cannabinoid Screen,Urine Negative ng/mL (Cutoff = 50); Cocaine Screen,Urine Negative ng/mL (Cutoff= 300); Opiate Screen,Urine Negative ng/mL (Cutoff=300); Phencyclidine Screen,Urine Negative ng/mL (Cutoff=25)
[2019-07-03 04:43] LABS: Basophils # 0.1 K/mcL (0.0-0.2); Basophils % 0.7 %; Eosinophils % 0.4 %; Hematocrit 42.7 % (37.5-50.1); Immature Granulocytes % 0.5 % (0-4); Lymphocytes # 1.5 K/mcL (0.6-4.6); Lymphocytes % 19.6 %; Mean Corpuscular HGB Conc 31.6 g/dL (31.6-35.5); Mean Corpuscular Hemoglobin 28.6 pg (28.0-33.3); Mean Corpuscular Volume 90.5 fL (83.0-100.0); Mean Platelet Volume 9.2 fL (9.4-12.4); Monocytes # 0.6 K/mcL (0.0-1.3); Monocytes % 7.8 %; Neutrophils # 5.3 K/mcL (1.6-8.9); Platelet Count 319 K/mcL (140-400); Red Blood Count 4.72 M/mcL (4.19-5.50); Red Cell Distribution Width 13.3 % (11.5-14.5); White Blood Count 7.5 K/mcL (4.3-11.1)
[2019-07-03 04:48] LABS: Hemoglobin 13.5 g/dL (12.9-16.9)
[2019-07-03 04:53] LABS: Alanine Aminotransferase 45 Units/L (7-52); Albumin 4.1 g/dL (3.5-5.7); Albumin/Globulin Ratio 1.6 (1.1-2.2); Alkaline Phosphatase 114 Units/L (34-104); Aspartate Amino Transferase 42 Units/L (13-39); BUN/Creatinine Ratio 24 (6-26); Bilirubin,Total 0.4 mg/dL (0.3-1.0); Blood Urea Nitrogen 20 mg/dL (6-20); Calcium 9.1 mg/dL (8.6-10.3); Carbon Dioxide 18 mEq/L (23-29); Chloride 103 mEq/L (98-107); Globulin 2.5 g/dL (2.4-3.5); Glucose 321 mg/dL (70-105); Osmolality,Calculated 297 (280-300); Potassium 4.2 mEq/L (3.5-5.1); Sodium 136 mEq/L (136-145); Total Protein 6.6 g/dL (6.4-8.9); eGFR For African Americans > 60 (> 60); eGFR For Non-African Americans > 60 (> 60)
[2019-07-03] MEDS ORDERED: D5% in 0.45% NACL w KCl 20 MEQ/1,000 ML MLS IVC SCH (06:45)
[2019-07-03 07:37] LABS: BUN/Creatinine Ratio 22 (6-26); Blood Urea Nitrogen 16 mg/dL (6-20); Carbon Dioxide 25 mEq/L (23-29); Chloride 105 mEq/L (98-107); Glucose 185 mg/dL (70-105); Osmolality,Calculated 284 (280-300); Potassium 4.1 mEq/L (3.5-5.1); Sodium 134 mEq/L (136-145); eGFR For African Americans > 60 (> 60); eGFR For Non-African Americans > 60 (> 60)
[2019-07-03] MEDS ORDERED: D5% in Water 1,000 ML IVC PRN (09:10)
[2019-07-03] MEDS ORDERED: Dextrose Gel 15 GM/37.5 ML TUBE PO PRN ×2 (09:10)
[2019-07-03] MEDS: Insulin NPH/REG 70/30 100 UNIT/ML (x5UNIT) SQ SCH ×2 (10:17→16:51)
[2019-07-03] MEDS: Insulin LISPRO 300 UNITS/3 ML VIAL SQ SCH ×3 (13:42→20:38)
--- NOTE | 2019-07-03 19:28 | Event Note ---
Date of Encounter: 07/03/19 Time of Encounter: 19:24 Patient was seen and examined at bed side. He denies any acute issues and concerns. He was admitted overnight for DKA/HHS due to not being able to get home medications. He presented iwth nausea, vomiting and abdominal pain. Report sthat he ahs not been able to get his insulin for past one week. Upon conditions but was not 800s. Patient was on DKA protocol and on insulin drip. Subsequently his BG got controlled and insulin drip was discontinued. Pt reports that he takes Novolin 70/30 25 BID. Pt was placed on his home regimen with medium strength sliding scale. Will continue to monitor.
[2019-07-04 05:14] LABS: Basophils % 0.5 %; Eosinophils # 0.2 K/mcL (0.0-0.6); Eosinophils % 2.2 %; Hematocrit 39.4 % (37.5-50.1); Hemoglobin 12.9 g/dL (12.9-16.9); Immature Granulocytes % 0.4 % (0-4); Lymphocytes # 1.8 K/mcL (0.6-4.6); Lymphocytes % 22.8 %; Mean Corpuscular HGB Conc 32.7 g/dL (31.6-35.5); Mean Corpuscular Hemoglobin 28.7 pg (28.0-33.3); Mean Corpuscular Volume 87.6 fL (83.0-100.0); Mean Platelet Volume 9.1 fL (9.4-12.4); Monocytes # 0.5 K/mcL (0.0-1.3); Monocytes % 5.8 %; Neutrophils # 5.4 K/mcL (1.6-8.9); Platelet Count 300 K/mcL (140-400); Red Cell Distribution Width 13.5 % (11.5-14.5); Segmented Neutrophils % 68.3 %; White Blood Count 7.8 K/mcL (4.3-11.1)
[2019-07-04 05:31] LABS: BUN/Creatinine Ratio 23 (6-26); Blood Urea Nitrogen 15 mg/dL (6-20); Calcium 8.8 mg/dL (8.6-10.3); Carbon Dioxide 26 mEq/L (23-29); Chloride 101 mEq/L (98-107); Glucose 247 mg/dL (70-105); Osmolality,Calculated 285 (280-300); Potassium 4.1 mEq/L (3.5-5.1); Sodium 133 mEq/L (136-145); eGFR For African Americans > 60 (> 60); eGFR For Non-African Americans > 60 (> 60)
--- NOTE | 2019-07-04 06:28 | Electrocardiograph Report ---
[facility] Test Date: 2019-07-02 Pat Name: John Lemus Department: [id number] Room: Gender: M [employer]el [employer]er: : [id number] Requested By: Stephanie Jules Order Number: [id number] Reading MD: Yony Swenson Measurements Intervals Burns Rate: 108 P: 80 WA: 120 QRS: 84 QRSD: 93 T: 68 QT: 345 QTc: 463 Interpretive Statements Sinus tachycardia Electronically Signed On 07-04-2019 6:26:19 EDT by Yony Swenson
[2019-07-04] MEDS: Insulin NPH/REG 70/30 100 UNIT/ML (x5UNIT) SQ SCH ×2 (08:48→18:06)
[2019-07-04] MEDS: Insulin LISPRO 300 UNITS/3 ML VIAL SQ SCH ×4 (08:50→21:15)
[2019-07-04] MEDS: Venlafaxine XR (24 HR) 75 MG CAP.ER.24H PO SCH (12:50)
--- NOTE | 2019-07-04 15:32 | Internal Med Progress Note ---
Hospitalist Progress Note - Encounter Date of Encounter: 07/04/19 Time of Encounter: 08:40 - Subjective Interval History: No acute events. Patient complains of nausea and also states, "I just feel sick". - Exam Vitals: Temp Pulse Resp BP Pulse Ox 36.8 C 86 18 111/74 96 07/03/19 16:41 07/04/19 03:36 07/04/19 03:36 07/04/19 03:36 07/04/19 03:36 Exam: GENERAL: Looks, ill and diaphoretic. Likely from opiate withdrawal. HEENT: EOMI, PERRLA MOUTH: Good oral hygiene NECK:No JVD, No lymph nodes. CHEST AND LUNGS: Normal breath sounds, no wheezes or crackles HEART: S1 and S2 normal, no murmurs ABDOMEN: Soft, nontender, no organomegaly SKIN: Normal color, no rahses, no lesions EXTREMITIES: No deformity, no edema, no tenderness, no joint swelling or clubbing NEUROLOGICAL: Normal cognition, normal motor and sensory exam. - Assessment and Plan (1) DKA (diabetic ketoacidoses) Current Visit: Yes Status: Acute Assessment and Plan: Gap has closed to 7. Glucose less than 200 Encourage oral feeds and resume home insulin regimen. (2) Polysubstance (including opioids) dependence, daily use Current Visit: Yes Status: Acute Assessment and Plan: Patient has withdrawal signs and symptoms this morning. He state that he feels sick. On exam, patient is diaphoretic. He uses heroin and methamphetamine on a regular basis. Urine positive for methamphetamine but negative for opiates. Will manage supportively. (3) DVT prophylaxis Current Visit: Yes Status: Acute Assessment and Plan: SQ Heparin (4) History of seizure disorder Current Visit: Yes Status: Acute Assessment and Plan: No seizure activity since admission. Continue to monitor Patient vague about whether he takes dilantin or not. Will conitnue to probe. (5) Hypertension Current Visit: Yes Status: Acute Assessment and Plan: BP controlled No home meds reported. - Time Spent with Patient Total time spent is greater than 50% in coordination of care (as documented) at patient's floor/unit and/or counseling patient: Internal Medicine: Result - Labs CBC & Chem 7: 07/04/19 04:34 07/04/19 04:34 Labs: Short CBC 07/04/19 Range/Units 04:34 WBC 7.8 (4.3-11.1) K/mcL Hgb 12.9 (12.9-16.9) g/dL Hct 39.4 (37.5-50.1) % Plt Count 300 (140-400) K/mcL Neutrophils # 5.4 (1.6-8.9) K/mcL BMP 07/04/19 04:34 Sodium 133 L Potassium 4.1 Chloride 101 Carbon Dioxide 26 BUN 15 Creatinine 0.64 L Glucose 247 H Calcium 8.8 Consult Discharge Plan - Plan Referrals: NONE,PCP [Primary Care Provider] - (Patient does not want us to find him a doctor) (1) DKA (diabetic ketoacidoses) Qualifiers: Diabetes mellitus type: type 1 Diabetes mellitus complication detail: without coma Qualified Code(s): E10.10 - Type 1 diabetes mellitus with ketoacidosis without coma
[2019-07-05 03:43] VITALS: BP 138/87
[2019-07-05] MEDS ORDERED: Insulin LISPRO 300 UNITS/3 ML VIAL SQ SCH (04:04)
[2019-07-05 04:33] LABS: Basophils % 0.3 %; Eosinophils # 0.1 K/mcL (0.0-0.6); Eosinophils % 1.1 %; Hematocrit 36.9 % (37.5-50.1); Immature Granulocytes % 0.3 % (0-4); Lymphocytes # 1.7 K/mcL (0.6-4.6); Lymphocytes % 22.4 %; Mean Corpuscular HGB Conc 32.5 g/dL (31.6-35.5); Mean Corpuscular Volume 86.2 fL (83.0-100.0); Mean Platelet Volume 9.5 fL (9.4-12.4); Monocytes # 0.6 K/mcL (0.0-1.3); Monocytes % 7.7 %; Neutrophils # 5.1 K/mcL (1.6-8.9); Platelet Count 290 K/mcL (140-400); Red Blood Count 4.28 M/mcL (4.19-5.50); Red Cell Distribution Width 13.5 % (11.5-14.5); Segmented Neutrophils % 68.2 %; White Blood Count 7.4 K/mcL (4.3-11.1)
[2019-07-05 04:52] LABS: BUN/Creatinine Ratio 19 (6-26); Blood Urea Nitrogen 18 mg/dL (6-20); Calcium 8.6 mg/dL (8.6-10.3); Carbon Dioxide 27 mEq/L (23-29); Chloride 97 mEq/L (98-107); Glucose 314 mg/dL (70-105); Osmolality,Calculated 284 (280-300); Potassium 3.9 mEq/L (3.5-5.1); Sodium 130 mEq/L (136-145); eGFR For African Americans > 60 (> 60); eGFR For Non-African Americans > 60 (> 60)
--- NOTE | 2019-07-05 08:49 | Discharge Summary ---
Date of Encounter: 07/05/19 Time of Encounter: 08:47 - Discharge Diagnosis (1) DKA (diabetic ketoacidoses) Priority: Primary Status: Acute Qualifiers: Diabetes mellitus type: type 1 Diabetes mellitus complication detail: without coma Qualified Code(s): E10.10 - Type 1 diabetes mellitus with ketoacidosis without coma (2) Polysubstance (including opioids) dependence, daily use Priority: Secondary Status: Acute (3) DVT prophylaxis Priority: Secondary Status: Acute (4) History of seizure disorder Priority: Secondary Status: Acute (5) Hypertension Priority: Secondary Status: Acute Qualifiers: Hypertension type: essential hypertension Qualified Code(s): I10 - Essential (primary) hypertension Hospital course: Mr. Lemus is a 33 year old male Discharge discussed with: patient - Time Spent with Patient Total time spent providing and/or coordinating discharge services: Time spent: Greater than 30 minutes (35) - Discharge Medications Prescriptions: New Quetiapine Fumarate [Seroquel] 400 mg PO HS #0 tablet Continued Gabapentin [Neurontin] 600 mg PO TID Phenytoin ER [Dilantin ER] 100 mg PO TID Quetiapine Fumarate [Quetiapine Fumarate ER] 400 mg PO DAILY Venlafaxine XR (24 HR) [Effexor XR] 225 mg PO DAILY Insulin NPH Hum/Reg Insulin Hm [Humulin 70/30 Kwikpen] 25 unit SQ BID #2 insuln.pen Insulin ASPART [Novolog Flexpen] 5 unit SQ TIDAC #2 insuln.pen Home Medications: Gabapentin [Neurontin] 600 mg PO TID 07/03/19 [History] Phenytoin ER [Dilantin ER] 100 mg PO TID 07/03/19 [History] Quetiapine Fumarate [Quetiapine Fumarate ER] 400 mg PO DAILY 07/03/19 [History] Venlafaxine XR (24 HR) [Effexor XR] 225 mg PO DAILY 07/03/19 [History] Insulin ASPART [Novolog Flexpen] 5 unit SQ TIDAC #2 insuln.pen 07/05/19 [Rx] Insulin NPH Hum/Reg Insulin Hm [Humulin 70/30 Kwikpen] 25 unit SQ BID #2 insuln.pen 07/05/19 [Rx] Quetiapine Fumarate [Seroquel] 400 mg PO HS #0 tablet 07/05/19 [Rx] Allergies/Adverse Reactions: Allergy/AdvReac Type Severity Reaction Status Date / Time insulin glargine Allergy Blister Verified 07/03/19 09:10 [From Lantus] diphenhydramine AdvReac Intermediate See Verified 07/03/19 09:10 [From Benadryl] Comments Date of admission: 07/03/19 05:27 Primary care physician: PCP NONE - Constitutional Vitals: Temp Pulse Resp BP Pulse Ox 36.8 C 109 18 138/87 96 07/05/19 00:02 07/05/19 00:02 07/05/19 03:38 07/05/19 03:38 07/04/19 03:36 Exam: GENERAL: Looks better this morning. Alert and oriented x3 HEENT: EOMI, PERRLA MOUTH: Moist oral mucosa NECK:No JVD, No lymph nodes. CHEST AND LUNGS: Normal breath sounds, no wheezes or crackles HEART: S1 and S2 normal, no murmurs ABDOMEN: Soft, nontender, no organomegaly SKIN: Normal color, no rahses, no lesions EXTREMITIES: No deformity, no edema, no tenderness, no joint swelling or clubbing NEUROLOGICAL: Normal cognition, normal motor and sensory exam. - Patient Status Disposition: Home, Self-Care Condition: Good Functional capacity at discharge: independent ambulation Overall status at discharge: patient is back to baseline - Discharge Instructions Follow Up With: NONE,PCP [Primary Care Provider] - (Patient does not want us to find him a doctor) Forms: ED Satisfaction Letter, Work/School Release - Diet and Activity Activity: increase activity as tolerated Diet: diabetic diet
[2019-07-05] MEDS: Insulin LISPRO 300 UNITS/3 ML VIAL SQ SCH ×2 (09:02→12:10)
[2019-07-05] MEDS: Insulin NPH/REG 70/30 100 UNIT/ML (x5UNIT) SQ SCH (09:04)
[2019-07-05] MEDS: Venlafaxine XR (24 HR) 75 MG CAP.ER.24H PO SCH ×2 (09:04→09:16)
[2019-07-05] MEDS ORDERED: Gabapentin 300 MG CAPSULE PO SCH (09:35)
== END 2019-07-05 14:24 | disposition home or self-care (01) ==
LOC: 2NNU 21:11 → EMEROOARM 21:11 → SUATTDRO 07-03 05:27 → 2NNU 07-03 06:18
PROVIDERS: ADMIT Internal Medicine; ATTEND Internal Medicine

== ENCOUNTER 2019-07-07 16:15 | Observation (INO) ==
[2019-07-07] MEDS ORDERED: *HR* Dextrose 50 % in Water (Syg) 50 ML SYRINGE IVP PRN (16:20)
[2019-07-07] MEDS ORDERED: Insulin Human Regular 100 UNIT in 0.9 % Sodium Chloride 100 ML IVC SCH (16:30)
[2019-07-07] MEDS: 0.9 % Sodium Chloride 1,000 ML IVC SCH ×3 (16:49→20:15)
[2019-07-07 17:11] LABS: VBG HCO3 25 mEq/L (21-27); VBG PCO2 41 mmHg (41-51); VBG PO2 142 mmHg (25-50)
[2019-07-07 17:23] LABS: Basophils % 0.4 %; Eosinophils % 0.6 %; Hematocrit 35.8 % (37.5-50.1); Hemoglobin 11.3 g/dL (12.9-16.9); Immature Granulocytes % 0.4 % (0-4); Lymphocytes # 1.1 K/mcL (0.6-4.6); Lymphocytes % 14.9 %; Mean Corpuscular HGB Conc 31.6 g/dL (31.6-35.5); Mean Corpuscular Hemoglobin 28.4 pg (28.0-33.3); Mean Corpuscular Volume 89.9 fL (83.0-100.0); Mean Platelet Volume 9.7 fL (9.4-12.4); Monocytes # 0.5 K/mcL (0.0-1.3); Monocytes % 6.8 %; Neutrophils # 5.5 K/mcL (1.6-8.9); Platelet Count 271 K/mcL (140-400); Red Blood Count 3.98 M/mcL (4.19-5.50); Red Cell Distribution Width 13.5 % (11.5-14.5); Segmented Neutrophils % 76.9 %; White Blood Count 7.2 K/mcL (4.3-11.1)
[2019-07-07 18:38] LABS: Amphetamine Screen,Urine Positive ng/mL (Cutoff=1000); Barbiturate Screen,Urine Negative ng/mL (Cutoff=200); Benzodiazepines Screen,Urine Negative ng/mL (Cutoff=200); Cannabinoid Screen,Urine Negative ng/mL (Cutoff = 50); Cocaine Screen,Urine Negative ng/mL (Cutoff= 300); Opiate Screen,Urine Negative ng/mL (Cutoff=300); Phencyclidine Screen,Urine Negative ng/mL (Cutoff=25)
[2019-07-07 18:58] LABS: BUN/Creatinine Ratio 17 (6-26); Blood Urea Nitrogen 11 mg/dL (6-20); Calcium 8.7 mg/dL (8.6-10.3); Carbon Dioxide 25 mEq/L (23-29); Chloride 91 mEq/L (98-107); Glucose 929 mg/dL (70-105); Osmolality,Calculated 302 (280-300); Potassium 4.6 mEq/L (3.5-5.1); Sodium 123 mEq/L (136-145); eGFR For African Americans > 60 (> 60); eGFR For Non-African Americans > 60 (> 60)
[2019-07-07 19:18] LABS: Bilirubin,Urine Negative (Negative); Blood,Urine Negative (Negative); Clarity,Urine Clear (Clear); Color,Urine Yellow (Yellow); Glucose,Urine (UA) >=1000 mg/dL (Normal); Ketones,Urine Negative (Negative); Leukocyte Esterase,Urine Negative (Negative); Nitrite,Urine Negative (Negative); PH,Urine 6.5 pH Units (5.0-8.0); Protein,Urine Negative (Neg-Trace); Specific Gravity,Urine 1.029 (1.010-1.025); Urobilinogen,Urine Normal (Normal)
[2019-07-07] MEDS ORDERED: 0.9 % Sodium Chloride w KCl 20 MEQ/1,000 ML MLS IVC ONE (20:51)
[2019-07-07 22:30] LABS: VBG HCO3 28 mEq/L (21-27); VBG PCO2 44 mmHg (41-51); VBG PH 7.41 pH Units (7.32-7.42); VBG PO2 192 mmHg (25-50)
[2019-07-07] MEDS ORDERED: D5% in 0.45% NACL w KCl 20 MEQ/1,000 ML MLS IVC ONE (22:43)
[2019-07-07 22:48] LABS: BUN/Creatinine Ratio 17 (6-26); Blood Urea Nitrogen 8 mg/dL (6-20); Calcium 8.5 mg/dL (8.6-10.3); Carbon Dioxide 25 mEq/L (23-29); Chloride 107 mEq/L (98-107); Glucose 83 mg/dL (70-105); Osmolality,Calculated 283 (280-300); Potassium 3.9 mEq/L (3.5-5.1); Sodium 138 mEq/L (136-145); eGFR For African Americans > 60 (> 60); eGFR For Non-African Americans > 60 (> 60)
[2019-07-07] MEDS ORDERED: Naloxone 0.4 MG/ML INJ IVP PRN (23:01)
[2019-07-07] MEDS ORDERED: Insulin Regular, Human 100 UNIT/ML IV PRN (23:03)
[2019-07-07] MEDS ORDERED: D5% in Water 1,000 ML IVC PRN (23:06)
[2019-07-07] MEDS ORDERED: Dextrose Gel 15 GM/37.5 ML TUBE PO PRN ×2 (23:06)
[2019-07-07] MEDS ORDERED: Insulin DETEMIR 100 UNIT/ML X5UNITS SQ SCH (23:30)
[2019-07-08] MEDS ORDERED: Insulin DETEMIR 100 UNIT/ML X5UNITS SQ ONE (01:10)
[2019-07-08] MEDS: 0.9 % Sodium Chloride 1,000 ML IVC SCH (02:43)
[2019-07-08] MEDS: *HR* Heparin 5,000 UNIT/ML VIAL SQ SCH ×2 (06:29→17:38)
[2019-07-08] MEDS: Insulin LISPRO 300 UNITS/3 ML VIAL SQ SCH ×4 (10:10→20:45)
[2019-07-08] MEDS: Insulin NPH/REG 70/30 100 UNIT/ML (x5UNIT) SQ SCH ×2 (10:27→16:29)
[2019-07-08] MEDS: Venlafaxine XR (24 HR) 75 MG CAP.ER.24H PO SCH (10:27)
[2019-07-08] MEDS: Gabapentin 300 MG CAPSULE PO SCH ×2 (16:23→20:44)
[2019-07-08] MEDS: QUEtiapine Fumarate 100 MG TABLET PO SCH (20:44)
[2019-07-09] MEDS: *HR* Heparin 5,000 UNIT/ML VIAL SQ SCH ×2 (05:20→18:04)
[2019-07-09 05:38] LABS: BUN/Creatinine Ratio 31 (6-26); Blood Urea Nitrogen 22 mg/dL (6-20); Calcium 8.7 mg/dL (8.6-10.3); Carbon Dioxide 27 mEq/L (23-29); Chloride 100 mEq/L (98-107); Glucose 351 mg/dL (70-105); Osmolality,Calculated 291 (280-300); Potassium 4.3 mEq/L (3.5-5.1); Sodium 132 mEq/L (136-145); eGFR For African Americans > 60 (> 60); eGFR For Non-African Americans > 60 (> 60)
[2019-07-09] MEDS: Venlafaxine XR (24 HR) 75 MG CAP.ER.24H PO SCH (07:55)
[2019-07-09] MEDS: Gabapentin 300 MG CAPSULE PO SCH ×3 (07:55→20:52)
[2019-07-09] MEDS: Insulin NPH/REG 70/30 100 UNIT/ML (x5UNIT) SQ SCH ×2 (07:56→16:53)
[2019-07-09] MEDS: Insulin LISPRO 300 UNITS/3 ML VIAL SQ SCH ×4 (07:57→20:56)
[2019-07-09] MEDS: QUEtiapine Fumarate 100 MG TABLET PO SCH (20:52)
[2019-07-10 05:30] LABS: BUN/Creatinine Ratio 36 (6-26); Blood Urea Nitrogen 24 mg/dL (6-20); Calcium 8.6 mg/dL (8.6-10.3); Carbon Dioxide 26 mEq/L (23-29); Chloride 101 mEq/L (98-107); Glucose 194 mg/dL (70-105); Osmolality,Calculated 287 (280-300); Sodium 134 mEq/L (136-145); eGFR For African Americans > 60 (> 60); eGFR For Non-African Americans > 60 (> 60)
[2019-07-10] MEDS: *HR* Heparin 5,000 UNIT/ML VIAL SQ SCH (05:45)
[2019-07-10] MEDS: Venlafaxine XR (24 HR) 75 MG CAP.ER.24H PO SCH (07:48)
[2019-07-10] MEDS: Gabapentin 300 MG CAPSULE PO SCH (07:48)
[2019-07-10] MEDS: Insulin NPH/REG 70/30 100 UNIT/ML (x5UNIT) SQ SCH (07:48)
[2019-07-10] MEDS: Insulin LISPRO 300 UNITS/3 ML VIAL SQ SCH ×2 (07:49→11:31)
[2019-07-10 11:38] VITALS: BP 116/78
== END 2019-07-10 12:52 | disposition home or self-care (01) ==
LOC: EMEROOARM 16:15 → 2NNU 16:15 → SUATTDRO 23:49 → 3ANU 07-08 20:54
PROVIDERS: ADMIT Internal Medicine; ATTEND Internal Medicine

== ENCOUNTER 2019-07-13 19:47 | Observation (INO) ==
[2019-07-13 20:29] LABS: Bilirubin,Urine Negative (Negative); Blood,Urine Negative (Negative); Clarity,Urine Clear (Clear); Color,Urine Yellow (Yellow); Glucose,Urine (UA) >=1000 mg/dL (Normal); Ketones,Urine 15 mg/dL (Negative); Leukocyte Esterase,Urine Negative (Negative); Nitrite,Urine Negative (Negative); PH,Urine 6.5 pH Units (5.0-8.0); Protein,Urine Negative (Neg-Trace); Specific Gravity,Urine 1.029 (1.010-1.025); Urobilinogen,Urine Normal (Normal)
[2019-07-13 20:30] LABS: Amphetamine Screen,Urine Positive ng/mL (Cutoff=1000); Barbiturate Screen,Urine Negative ng/mL (Cutoff=200); Benzodiazepines Screen,Urine Negative ng/mL (Cutoff=200); Cannabinoid Screen,Urine Negative ng/mL (Cutoff = 50); Cocaine Screen,Urine Negative ng/mL (Cutoff= 300); Opiate Screen,Urine Negative ng/mL (Cutoff=300); Phencyclidine Screen,Urine Negative ng/mL (Cutoff=25)
[2019-07-13 20:46] LABS: Basophils % 0.6 %; Eosinophils # 0.1 K/mcL (0.0-0.6); Eosinophils % 1.2 %; Hematocrit 35.7 % (37.5-50.1); Hemoglobin 11.3 g/dL (12.9-16.9); Immature Granulocytes % 0.4 % (0-4); Lymphocytes # 1.1 K/mcL (0.6-4.6); Lymphocytes % 16.9 %; Mean Corpuscular HGB Conc 31.7 g/dL (31.6-35.5); Mean Corpuscular Hemoglobin 28.3 pg (28.0-33.3); Mean Corpuscular Volume 89.3 fL (83.0-100.0); Mean Platelet Volume 9.7 fL (9.4-12.4); Monocytes # 0.5 K/mcL (0.0-1.3); Monocytes % 7.6 %; Neutrophils # 4.9 K/mcL (1.6-8.9); Platelet Count 266 K/mcL (140-400); Segmented Neutrophils % 73.3 %; White Blood Count 6.7 K/mcL (4.3-11.1)
[2019-07-13 21:21] LABS: Acetaminophen < 10 mcg/mL (10-20); BUN/Creatinine Ratio 20 (6-26); Blood Urea Nitrogen 17 mg/dL (6-20); Carbon Dioxide 23 mEq/L (23-29); Chloride 91 mEq/L (98-107); Ethanol < 10 mg/dL (Less than 10); Glucose 906 mg/dL (70-105); Osmolality,Calculated 302 (280-300); Salicylate < 2.5 mg/dL (15.0-30.0); Sodium 123 mEq/L (136-145); eGFR For African Americans > 60 (> 60); eGFR For Non-African Americans > 60 (> 60)
[2019-07-13] MEDS ORDERED: 0.9 % Sodium Chloride 1,000 ML IVC ONE (21:26)
[2019-07-13] MEDS ORDERED: Insulin Human Regular 100 UNIT in 0.9 % Sodium Chloride 100 ML IVC SCH (22:00)
[2019-07-13 22:21] LABS: VBG HCO3 25 mEq/L (21-27); VBG PCO2 39 mmHg (41-51); VBG PH 7.42 pH Units (7.32-7.42); VBG PO2 114 mmHg (25-50)
[2019-07-13] MEDS: 0.9 % Sodium Chloride 1,000 ML IVC SCH (22:55)
[2019-07-14] MEDS ORDERED: *HR* Dextrose 50 % in Water (Syg) 50 ML SYRINGE IVP PRN ×2 (00:40→10:15)
[2019-07-14] MEDS ORDERED: D5% in 0.45% NACL 1,000 ML IVC PRN (00:40)
[2019-07-14] MEDS ORDERED: Insulin LISPRO 300 UNITS/3 ML VIAL SQ PRN (00:40)
[2019-07-14] MEDS: 0.9 % Sodium Chloride 1,000 ML IVC SCH ×3 (01:19→22:51)
[2019-07-14] MEDS ORDERED: D5% in 0.45% NACL w KCl 20 MEQ/1,000 ML MLS IVC PRN (02:16)
[2019-07-14 02:57] LABS: BUN/Creatinine Ratio 21 (6-26); Blood Urea Nitrogen 12 mg/dL (6-20); Calcium 8.6 mg/dL (8.6-10.3); Carbon Dioxide 25 mEq/L (23-29); Chloride 105 mEq/L (98-107); Glucose 194 mg/dL (70-105); Osmolality,Calculated 289 (280-300); Potassium 3.7 mEq/L (3.5-5.1); Sodium 137 mEq/L (136-145); eGFR For African Americans > 60 (> 60); eGFR For Non-African Americans > 60 (> 60)
[2019-07-14] MEDS: Insulin LISPRO 300 UNITS/3 ML VIAL SQ SCH ×4 (03:53→18:03)
[2019-07-14] MEDS ORDERED: *HR* LORazepam 2 MG/ML VIAL IVP PRN (08:09)
[2019-07-14] MEDS ORDERED: Insulin NPH/REG 70/30 300 UNIT/3 ML per UNIT SQ SCH (09:00)
[2019-07-14 10:10] LABS: Alanine Aminotransferase 34 Units/L (7-52); Albumin 3.4 g/dL (3.5-5.7); Albumin/Globulin Ratio 1.5 (1.1-2.2); Alkaline Phosphatase 94 Units/L (34-104); Aspartate Amino Transferase 33 Units/L (13-39); BUN/Creatinine Ratio 16 (6-26); Bilirubin,Total 0.5 mg/dL (0.3-1.0); Blood Urea Nitrogen 11 mg/dL (6-20); Calcium 8.5 mg/dL (8.6-10.3); Carbon Dioxide 25 mEq/L (23-29); Chloride 100 mEq/L (98-107); Globulin 2.2 g/dL (2.4-3.5); Glucose 504 mg/dL (70-105); Osmolality,Calculated 294 (280-300); Potassium 4.6 mEq/L (3.5-5.1); Sodium 131 mEq/L (136-145); Total Protein 5.6 g/dL (6.4-8.9); eGFR For African Americans > 60 (> 60); eGFR For Non-African Americans > 60 (> 60)
[2019-07-14] MEDS ORDERED: D5% in Water 1,000 ML IVC PRN (10:15)
[2019-07-14] MEDS ORDERED: Dextrose Gel 15 GM/37.5 ML TUBE PO PRN ×2 (10:15)
[2019-07-14] MEDS ORDERED: Insulin LISPRO 300 UNITS/3 ML VIAL SQ ONE (10:20)
[2019-07-14] MEDS: Gabapentin 300 MG CAPSULE PO SCH ×3 (10:43→22:46)
[2019-07-14] MEDS: Venlafaxine XR (24 HR) 75 MG CAP.ER.24H PO SCH (10:43)
[2019-07-14] MEDS ORDERED: Insulin Human Regular 100 UNIT in 0.9 % Sodium Chloride 100 ML IVC SCH (12:00)
[2019-07-14] MEDS: Insulin NPH/REG 70/30 100 UNIT/ML (x5UNIT) SQ SCH (18:03)
[2019-07-14] MEDS: *HR* Heparin 5,000 UNIT/ML VIAL SQ SCH (18:04)
[2019-07-14] MEDS ORDERED: QUEtiapine Fumarate 100 MG TABLET PO SCH (21:00)
[2019-07-14] MEDS ORDERED: Insulin LISPRO 300 UNITS/3 ML VIAL SQ SCH (21:00)
[2019-07-15] MEDS: *HR* Heparin 5,000 UNIT/ML VIAL SQ SCH (03:34)
[2019-07-15] MEDS: Gabapentin 300 MG CAPSULE PO SCH (07:40)
[2019-07-15] MEDS: Insulin NPH/REG 70/30 100 UNIT/ML (x5UNIT) SQ SCH (07:41)
[2019-07-15] MEDS: Venlafaxine XR (24 HR) 75 MG CAP.ER.24H PO SCH (07:41)
[2019-07-15] MEDS: Insulin LISPRO 300 UNITS/3 ML VIAL SQ SCH ×2 (07:45→12:05)
[2019-07-15 11:00] LABS: Basophils % 0.6 %; Eosinophils # 0.2 K/mcL (0.0-0.6); Eosinophils % 3.2 %; Hematocrit 39.3 % (37.5-50.1); Hemoglobin 12.5 g/dL (12.9-16.9); Immature Granulocytes % 0.4 % (0-4); Lymphocytes # 1.3 K/mcL (0.6-4.6); Lymphocytes % 24.7 %; Mean Corpuscular HGB Conc 31.8 g/dL (31.6-35.5); Mean Corpuscular Hemoglobin 28.6 pg (28.0-33.3); Mean Corpuscular Volume 89.9 fL (83.0-100.0); Mean Platelet Volume 8.9 fL (9.4-12.4); Monocytes # 0.5 K/mcL (0.0-1.3); Monocytes % 9.1 %; Neutrophils # 3.3 K/mcL (1.6-8.9); Platelet Count 266 K/mcL (140-400); Red Blood Count 4.37 M/mcL (4.19-5.50); Red Cell Distribution Width 13.5 % (11.5-14.5); White Blood Count 5.4 K/mcL (4.3-11.1)
[2019-07-15 11:18] VITALS: BP 119/77
[2019-07-15 11:19] LABS: BUN/Creatinine Ratio 25 (6-26); Blood Urea Nitrogen 16 mg/dL (6-20); Calcium 8.9 mg/dL (8.6-10.3); Carbon Dioxide 29 mEq/L (23-29); Chloride 103 mEq/L (98-107); Glucose 57 mg/dL (70-105); Magnesium 1.6 mg/dL (1.6-2.6); Osmolality,Calculated 287 (280-300); Phosphorous 3.3 mg/dL (2.7-4.5); Potassium 3.8 mEq/L (3.5-5.1); Sodium 139 mEq/L (136-145); eGFR For African Americans > 60 (> 60); eGFR For Non-African Americans > 60 (> 60)
== END 2019-07-15 13:44 | disposition home or self-care (01) ==
LOC: 2NNU 19:47 → EMEROOARM 19:47 → 2NNU 07-14 01:40
PROVIDERS: ADMIT Internal Medicine Nephrology; ATTEND Internal Medicine Nephrology

== ENCOUNTER 2019-11-01 15:05 | Observation (INO) ==
[2019-11-01] MEDS ORDERED: *HR* Dextrose 50 % in Water (Syg) 50 ML SYRINGE IVP PRN ×2 (15:11→20:11)
[2019-11-01] MEDS ORDERED: Insulin Regular, Human 100 UNIT/ML IV PRN (15:11)
[2019-11-01] MEDS ORDERED: Insulin Human Regular 100 UNIT in 0.9 % Sodium Chloride 100 ML IVC SCH (15:15)
[2019-11-01] MEDS: 0.9 % Sodium Chloride 1,000 ML IVC SCH ×2 (15:37→16:39)
[2019-11-01 15:42] LABS: Basophils % 0.3 %; Eosinophils % 0.4 %; Hematocrit 40.1 % (37.5-50.1); Hemoglobin 12.9 g/dL (12.9-16.9); Immature Granulocytes % 0.5 % (0-4); Lymphocytes # 0.6 K/mcL (0.6-4.6); Lymphocytes % 7.8 %; Mean Corpuscular HGB Conc 32.2 g/dL (31.6-35.5); Mean Corpuscular Hemoglobin 28.7 pg (28.0-33.3); Mean Corpuscular Volume 89.1 fL (83.0-100.0); Mean Platelet Volume 10.2 fL (9.4-12.4); Monocytes # 0.4 K/mcL (0.0-1.3); Neutrophils # 6.4 K/mcL (1.6-8.9); Platelet Count 217 K/mcL (140-400); White Blood Count 7.4 K/mcL (4.3-11.1)
[2019-11-01 15:48] LABS: Bilirubin,Urine Negative (Negative); Blood,Urine Negative (Negative); Clarity,Urine Clear (Clear); Glucose,Urine (UA) >=1000 mg/dL (Normal); Ketones,Urine 40 mg/dL (Negative); Leukocyte Esterase,Urine Negative (Negative); Nitrite,Urine Negative (Negative); PH,Urine 6.5 pH Units (5.0-8.0); Protein,Urine Negative (Neg-Trace); Urobilinogen,Urine Normal (Normal)
[2019-11-01 15:50] LABS: Color,Urine Straw (Yellow)
[2019-11-01 16:45] LABS: ABG Base Excess -1 mEq/L (-2 to 3); ABG HCO3 24 mEq/L (21-27); ABG Oxygen Saturation 90 % (95-98); ABG PCO2 40 mmHg (35-45); ABG PH 7.39 pH Units (7.32-7.45); ABG PO2 59 mmHg (85-104); ABG TCO2 25 mEq/L (20-26)
[2019-11-01] MEDS ORDERED: Insulin Human Regular 20 UNIT in 0.9 % Sodium Chloride 10 ML IV ONE (17:46)
[2019-11-01 17:49] LABS: Alanine Aminotransferase 63 Units/L (7-52); Albumin/Globulin Ratio 1.7 (1.1-2.2); Alkaline Phosphatase 103 Units/L (34-104); Aspartate Amino Transferase 70 Units/L (13-39); BUN/Creatinine Ratio 23 (6-26); Bilirubin,Total 0.7 mg/dL (0.3-1.0); Blood Urea Nitrogen 19 mg/dL (6-20); Calcium 8.6 mg/dL (8.6-10.3); Carbon Dioxide 20 mEq/L (23-29); Chloride 92 mEq/L (98-107); Globulin 2.4 g/dL (2.4-3.5); Magnesium 1.9 mg/dL (1.6-2.6); Potassium 4.8 mEq/L (3.5-5.1); Sodium 125 mEq/L (136-145); Total Protein 6.4 g/dL (6.4-8.9); eGFR For African Americans > 60 (> 60); eGFR For Non-African Americans > 60 (> 60)
[2019-11-01 17:59] LABS: Estimated Average Glucose 266 mg/dl
[2019-11-01 18:13] LABS: Glucose 992 mg/dL (70-105); Osmolality,Calculated 312 (280-300)
[2019-11-01] MEDS ORDERED: D5% in 0.45% NACL w KCl 20 MEQ/1,000 ML MLS IVC PRN (20:11)
[2019-11-01] MEDS ORDERED: D5% in 0.45% NACL 1,000 ML IVC PRN (20:11)
[2019-11-01] MEDS ORDERED: Insulin LISPRO 300 UNITS/3 ML VIAL SQ PRN (20:11)
[2019-11-01] MEDS ORDERED: D5% in 0.45% NACL w KCl 20 MEQ/1,000 ML MLS IVC ONE (20:35)
[2019-11-01 20:40] LABS: Amphetamine Screen,Urine Negative ng/mL (Cutoff=1000); Barbiturate Screen,Urine Negative ng/mL (Cutoff=200); Benzodiazepines Screen,Urine Negative ng/mL (Cutoff=200); Cannabinoid Screen,Urine Negative ng/mL (Cutoff = 50); Cocaine Screen,Urine Negative ng/mL (Cutoff= 300); Opiate Screen,Urine Negative ng/mL (Cutoff=300); Phencyclidine Screen,Urine Negative ng/mL (Cutoff=25)
[2019-11-01 21:39] LABS: VBG HCO3 22 mEq/L (21-27); VBG PCO2 40 mmHg (41-51); VBG PH 7.36 pH Units (7.32-7.42); VBG PO2 119 mmHg (25-50)
[2019-11-01] MEDS ORDERED: *HR* LORazepam 2 MG/ML VIAL IVP PRN ×3 (22:07)
[2019-11-01 22:20] LABS: BUN/Creatinine Ratio 22 (6-26); Blood Urea Nitrogen 15 mg/dL (6-20); Calcium 8.6 mg/dL (8.6-10.3); Carbon Dioxide 24 mEq/L (23-29); Chloride 101 mEq/L (98-107); Glucose 284 mg/dL (70-105); Osmolality,Calculated 289 (280-300); Potassium 3.5 mEq/L (3.5-5.1); Salicylate < 2.5 mg/dL (15.0-30.0); Sodium 134 mEq/L (136-145); eGFR For African Americans > 60 (> 60); eGFR For Non-African Americans > 60 (> 60)
[2019-11-01 22:48] LABS: VBG HCO3 25 mEq/L (21-27); VBG PCO2 42 mmHg (41-51); VBG PH 7.39 pH Units (7.32-7.42); VBG PO2 177 mmHg (25-50)
[2019-11-01] MEDS ORDERED: Insulin DETEMIR 100 UNIT/ML X5UNITS SQ ONE (22:57)
[2019-11-01 23:02] LABS: Potassium 3.7 mEq/L (3.5-5.1)
[2019-11-02 01:06] LABS: VBG HCO3 27 mEq/L (21-27); VBG PCO2 43 mmHg (41-51); VBG PH 7.41 pH Units (7.32-7.42); VBG PO2 146 mmHg (25-50)
[2019-11-02 01:23] LABS: Potassium 3.9 mEq/L (3.5-5.1)
[2019-11-02] MEDS: 0.45 % Sodium Chloride w/KCl 20 MEQ/1,000 ML MLS IVC SCH ×5 (03:59→16:31)
[2019-11-02 04:58] LABS: Potassium 4.1 mEq/L (3.5-5.1)
[2019-11-02] MEDS: *HR* Heparin 5,000 UNIT/ML VIAL SQ SCH ×3 (06:22→21:59)
[2019-11-02] MEDS: Folic Acid 1 MG TABLET PO SCH (10:34)
[2019-11-02] MEDS: Thiamine (B-1) 100 MG TABLET PO SCH (10:34)
[2019-11-02] MEDS: Vitamin B Complex/Vit C/Vit E 1 EACH TABLET PO SCH (10:34)
[2019-11-02] MEDS ORDERED: D5% in Water 1,000 ML IVC PRN (10:51)
[2019-11-02] MEDS ORDERED: Dextrose Gel 15 GM/37.5 ML TUBE PO PRN ×2 (10:51)
[2019-11-02] MEDS ORDERED: Insulin LISPRO 300 UNITS/3 ML VIAL SQ SCH (11:00)
[2019-11-02] MEDS: Insulin LISPRO 300 UNITS/3 ML VIAL SQ SCH ×3 (11:52→22:00)
[2019-11-02] MEDS: Insulin DETEMIR 100 UNIT/ML X5UNITS SQ SCH ×2 (12:17→21:59)
[2019-11-02] MEDS: Gabapentin 300 MG CAPSULE PO SCH (22:00)
[2019-11-03] MEDS: *HR* Heparin 5,000 UNIT/ML VIAL SQ SCH ×3 (05:35→22:03)
[2019-11-03 06:32] LABS: Basophils % 0.6 %; Eosinophils # 0.2 K/mcL (0.0-0.6); Hematocrit 37.4 % (37.5-50.1); Hemoglobin 12.5 g/dL (12.9-16.9); Immature Granulocytes % 0.4 % (0-4); Lymphocytes % 40.5 %; Mean Corpuscular HGB Conc 33.4 g/dL (31.6-35.5); Mean Corpuscular Hemoglobin 28.6 pg (28.0-33.3); Mean Corpuscular Volume 85.6 fL (83.0-100.0); Mean Platelet Volume 9.5 fL (9.4-12.4); Monocytes # 0.4 K/mcL (0.0-1.3); Monocytes % 8.7 %; Neutrophils # 2.2 K/mcL (1.6-8.9); Platelet Count 245 K/mcL (140-400); Red Blood Count 4.37 M/mcL (4.19-5.50); Red Cell Distribution Width 13.7 % (11.5-14.5); Segmented Neutrophils % 45.8 %; White Blood Count 4.8 K/mcL (4.3-11.1)
[2019-11-03 06:51] LABS: Magnesium 1.6 mg/dL (1.6-2.6); Phosphorous 4.6 mg/dL (2.7-4.5)
[2019-11-03] MEDS: Insulin LISPRO 300 UNITS/3 ML VIAL SQ SCH ×4 (09:13→21:53)
[2019-11-03 09:20] LABS: BUN/Creatinine Ratio 19 (6-26); Blood Urea Nitrogen 10 mg/dL (6-20); Calcium 8.8 mg/dL (8.6-10.3); Carbon Dioxide 27 mEq/L (23-29); Chloride 102 mEq/L (98-107); Glucose 45 mg/dL (70-105); Osmolality,Calculated 290 (280-300); Potassium 3.8 mEq/L (3.5-5.1); Sodium 142 mEq/L (136-145); eGFR For African Americans > 60 (> 60); eGFR For Non-African Americans > 60 (> 60)
[2019-11-03] MEDS: Thiamine (B-1) 100 MG TABLET PO SCH (09:45)
[2019-11-03] MEDS: Insulin DETEMIR 100 UNIT/ML X5UNITS SQ SCH ×2 (09:45→21:52)
[2019-11-03] MEDS: Vitamin B Complex/Vit C/Vit E 1 EACH TABLET PO SCH (09:45)
[2019-11-03] MEDS: Folic Acid 1 MG TABLET PO SCH (09:45)
[2019-11-03] MEDS ORDERED: *HR* LORazepam 0.5 MG TABLET PO PRN (14:29)
[2019-11-03] MEDS: cephALEXin 500 MG CAPSULE PO SCH ×2 (17:18→21:52)
[2019-11-03] MEDS: Doxycycline 100 MG CAPSULE PO SCH (21:52)
[2019-11-03] MEDS: Gabapentin 300 MG CAPSULE PO SCH (21:52)
[2019-11-04] MEDS: *HR* Heparin 5,000 UNIT/ML VIAL SQ SCH ×2 (05:45→12:04)
[2019-11-04] MEDS: Thiamine (B-1) 100 MG TABLET PO SCH (08:27)
[2019-11-04] MEDS: Doxycycline 100 MG CAPSULE PO SCH (08:27)
[2019-11-04] MEDS: Vitamin B Complex/Vit C/Vit E 1 EACH TABLET PO SCH (08:27)
[2019-11-04] MEDS: Folic Acid 1 MG TABLET PO SCH (08:27)
[2019-11-04] MEDS: cephALEXin 500 MG CAPSULE PO SCH ×2 (08:27→12:04)
[2019-11-04] MEDS: Insulin LISPRO 300 UNITS/3 ML VIAL SQ SCH ×2 (08:27→12:04)
[2019-11-04] MEDS: Insulin DETEMIR 100 UNIT/ML X5UNITS SQ SCH (08:29)
[2019-11-04 11:24] VITALS: BP 152/95
== END 2019-11-04 14:41 | disposition home or self-care (01) ==
LOC: EMEROOARM 15:05 → 2ANU 15:05 → 2NNU 15:05 → SUATTDRO 19:42 → 2NNU 20:19 → 2ANU 11-02 07:22
PROVIDERS: ADMIT Internal Medicine; ATTEND Internal Medicine

== ENCOUNTER 2019-11-19 20:43 | Observation (INO) ==
[2019-11-19] MEDS ORDERED: 0.9 % Sodium Chloride 1,000 ML IV ONE ×2 (20:55→23:11)
[2019-11-19] MEDS ORDERED: Ondansetron 4 MG/2 ML VIAL IVP ONE (21:15)
[2019-11-19] MEDS ORDERED: Ketorolac 15 MG/ML VIAL IVP ONE (21:15)
[2019-11-19 21:45] LABS: Amphetamine Screen,Urine Positive ng/mL (Cutoff=1000); Barbiturate Screen,Urine Negative ng/mL (Cutoff=200); Benzodiazepines Screen,Urine Negative ng/mL (Cutoff=200); Cannabinoid Screen,Urine Negative ng/mL (Cutoff = 50); Cocaine Screen,Urine Negative ng/mL (Cutoff= 300); Opiate Screen,Urine Negative ng/mL (Cutoff=300); Phencyclidine Screen,Urine Negative ng/mL (Cutoff=25)
[2019-11-19 22:06] LABS: Bilirubin,Urine Negative (Negative); Blood,Urine Trace-intact (Negative); Clarity,Urine Clear (Clear); Color,Urine Yellow (Yellow); Glucose,Urine (UA) 500 mg/dL (Normal); Ketones,Urine >=160 mg/dL (Negative); Leukocyte Esterase,Urine Negative (Negative); Nitrite,Urine Negative (Negative); Protein,Urine Negative (Neg-Trace); Urobilinogen,Urine Normal (Normal)
[2019-11-19 22:33] LABS: Bacteria,Urine None Seen per hpf (None-Few); Hyaline Casts,Urine None Seen per lpf (None-Few); RBC,Urine 0-3 per hpf (0-3); Squamous Epithelial Cell,Urine None Seen per lpf (None-Few); WBC,Urine 0-3 per hpf (0-3)
[2019-11-19 22:35] LABS: Basophils # 0.1 K/mcL (0.0-0.2); Basophils % 0.6 %; Eosinophils # 0.1 K/mcL (0.0-0.6); Eosinophils % 0.6 %; Hematocrit 34.5 % (37.5-50.1); Hemoglobin 11.4 g/dL (12.9-16.9); Immature Granulocytes % 0.4 % (0-4); Lymphocytes # 1.5 K/mcL (0.6-4.6); Lymphocytes % 18.2 %; Mean Corpuscular Hemoglobin 28.3 pg (28.0-33.3); Mean Corpuscular Volume 85.6 fL (83.0-100.0); Mean Platelet Volume 9.6 fL (9.4-12.4); Monocytes # 0.7 K/mcL (0.0-1.3); Monocytes % 8.1 %; Neutrophils # 5.9 K/mcL (1.6-8.9); Platelet Count 292 K/mcL (140-400); Red Blood Count 4.03 M/mcL (4.19-5.50); Red Cell Distribution Width 13.2 % (11.5-14.5); Segmented Neutrophils % 72.1 %; White Blood Count 8.2 K/mcL (4.3-11.1)
[2019-11-19 23:02] LABS: Alanine Aminotransferase 33 Units/L (7-52); Albumin 4.1 g/dL (3.5-5.7); Albumin/Globulin Ratio 1.7 (1.1-2.2); Alkaline Phosphatase 110 Units/L (34-104); Aspartate Amino Transferase 38 Units/L (13-39); BUN/Creatinine Ratio 14 (6-26); Bilirubin,Total 0.8 mg/dL (0.3-1.0); Blood Urea Nitrogen 11 mg/dL (6-20); Calcium 9.4 mg/dL (8.6-10.3); Carbon Dioxide 16 mEq/L (23-29); Chloride 94 mEq/L (98-107); Globulin 2.4 g/dL (2.4-3.5); Glucose 371 mg/dL (70-105); Lipase < 3 Units/L (11-82); Osmolality,Calculated 285 (280-300); Potassium 4.4 mEq/L (3.5-5.1); Sodium 130 mEq/L (136-145); Total Protein 6.5 g/dL (6.4-8.9); eGFR For African Americans > 60 (> 60); eGFR For Non-African Americans > 60 (> 60)
[2019-11-19] MEDS ORDERED: *HR* Dextrose 50 % in Water (Syg) 50 ML SYRINGE IVP PRN (23:03)
[2019-11-19] MEDS ORDERED: Insulin Human Regular 100 UNIT in 0.9 % Sodium Chloride 100 ML IVC SCH (23:15)
[2019-11-19 23:48] LABS: VBG HCO3 17 mEq/L (21-27); VBG PCO2 42 mmHg (41-51); VBG PH 7.22 pH Units (7.32-7.42); VBG PO2 83 mmHg (25-50)
[2019-11-20] MEDS ORDERED: 0.9 % Sodium Chloride 1,000 ML ONE (00:14)
[2019-11-20] MEDS ORDERED: *HR* Dextrose 50 % in Water (Syg) 50 ML SYRINGE IVP PRN (00:31)
[2019-11-20] MEDS ORDERED: Insulin LISPRO 300 UNITS/3 ML VIAL SQ PRN (00:31)
[2019-11-20] MEDS ORDERED: D5% in 0.45% NACL 1,000 ML IVC PRN (00:48)
[2019-11-20] MEDS ORDERED: 0.9 % Sodium Chloride 1,000 ML IVC SCH (01:00)
[2019-11-20] MEDS ORDERED: 0.45 % Sodium Chloride w/KCl 20 MEQ/1,000 ML MLS IVC SCH (01:00)
[2019-11-20] MEDS: D5% in 0.45% NACL w KCl 20 MEQ/1,000 ML MLS IVC PRN ×2 (01:21→05:28)
[2019-11-20 03:01] LABS: VBG HCO3 23 mEq/L (21-27); VBG PCO2 52 mmHg (41-51); VBG PH 7.26 pH Units (7.32-7.42); VBG PO2 50 mmHg (25-50)
[2019-11-20 03:12] LABS: BUN/Creatinine Ratio 13 (6-26); Blood Urea Nitrogen 10 mg/dL (6-20); Calcium 8.7 mg/dL (8.6-10.3); Carbon Dioxide 22 mEq/L (23-29); Chloride 104 mEq/L (98-107); Glucose 78 mg/dL (70-105); Osmolality,Calculated 280 (280-300); Sodium 136 mEq/L (136-145); eGFR For African Americans > 60 (> 60); eGFR For Non-African Americans > 60 (> 60)
[2019-11-20 04:20] LABS: Basophils % 0.6 %; Eosinophils # 0.1 K/mcL (0.0-0.6); Eosinophils % 1.8 %; Hematocrit 33.8 % (37.5-50.1); Hemoglobin 11.1 g/dL (12.9-16.9); Immature Granulocytes % 0.4 % (0-4); Lymphocytes # 1.7 K/mcL (0.6-4.6); Lymphocytes % 23.5 %; Mean Corpuscular HGB Conc 32.8 g/dL (31.6-35.5); Mean Corpuscular Volume 85.1 fL (83.0-100.0); Mean Platelet Volume 9.2 fL (9.4-12.4); Monocytes # 0.8 K/mcL (0.0-1.3); Monocytes % 11.2 %; Neutrophils # 4.4 K/mcL (1.6-8.9); Platelet Count 265 K/mcL (140-400); Red Blood Count 3.97 M/mcL (4.19-5.50); Segmented Neutrophils % 62.5 %
[2019-11-20 04:34] LABS: VBG HCO3 23 mEq/L (21-27); VBG PCO2 44 mmHg (41-51); VBG PH 7.33 pH Units (7.32-7.42); VBG PO2 179 mmHg (25-50)
[2019-11-20 04:41] LABS: Alanine Aminotransferase 27 Units/L (7-52); Albumin 3.4 g/dL (3.5-5.7); Albumin/Globulin Ratio 1.7 (1.1-2.2); Alkaline Phosphatase 93 Units/L (34-104); Aspartate Amino Transferase 32 Units/L (13-39); BUN/Creatinine Ratio 14 (6-26); Bilirubin,Total 0.6 mg/dL (0.3-1.0); Blood Urea Nitrogen 9 mg/dL (6-20); Calcium 8.4 mg/dL (8.6-10.3); Carbon Dioxide 21 mEq/L (23-29); Chloride 104 mEq/L (98-107); Glucose 95 mg/dL (70-105); Magnesium 1.8 mg/dL (1.6-2.6); Osmolality,Calculated 282 (280-300); Potassium 3.8 mEq/L (3.5-5.1); Sodium 137 mEq/L (136-145); Total Protein 5.4 g/dL (6.4-8.9); eGFR For African Americans > 60 (> 60); eGFR For Non-African Americans > 60 (> 60)
[2019-11-20] MEDS: *HR* Heparin 5,000 UNIT/ML VIAL SQ SCH ×3 (05:12→20:26)
[2019-11-20] MEDS ORDERED: Insulin DETEMIR 100 UNIT/ML X5UNITS SQ STA (05:31)
[2019-11-20] MEDS ORDERED: D5% in Water 1,000 ML IVC PRN (05:40)
[2019-11-20] MEDS ORDERED: Insulin LISPRO 300 UNITS/3 ML VIAL SQ SCH ×3 (07:30→21:00)
[2019-11-20] MEDS: Insulin LISPRO 300 UNITS/3 ML VIAL SQ SCH ×3 (11:55→16:57)
[2019-11-20] MEDS: Insulin NPH/REG 70/30 100 UNIT/ML (x5UNIT) SQ SCH ×2 (11:55→16:57)
[2019-11-20] MEDS: Gabapentin 300 MG CAPSULE PO SCH ×2 (15:18→20:15)
[2019-11-20] MEDS ORDERED: Insulin NPH/REG 70/30 100 UNIT/ML (x5UNIT) SQ SCH (17:00)
[2019-11-21] MEDS: *HR* Heparin 5,000 UNIT/ML VIAL SQ SCH (05:59)
[2019-11-21] MEDS: Insulin LISPRO 300 UNITS/3 ML VIAL SQ SCH ×4 (08:11→11:11)
[2019-11-21] MEDS: Insulin NPH/REG 70/30 100 UNIT/ML (x5UNIT) SQ SCH (08:13)
[2019-11-21] MEDS: Gabapentin 300 MG CAPSULE PO SCH (08:13)
[2019-11-21 11:08] VITALS: BP 128/78
== END 2019-11-21 12:45 | disposition home or self-care (01) ==
LOC: 2NNU 20:43 → EMEROOARM 20:43 → SUATTDRO 11-20 00:35 → 2NNU 11-20 00:54
PROVIDERS: ADMIT Internal Medicine; ATTEND Internal Medicine

== ENCOUNTER 2019-12-04 18:52 | Inpatient (IN) ==
[2019-12-04 19:39] LABS: Basophils # 0.1 K/mcL (0.0-0.2); Basophils % 0.5 %; Eosinophils % 0.1 %; Hematocrit 34.2 % (37.5-50.1); Hemoglobin 11.2 g/dL (12.9-16.9); Immature Granulocytes % 0.3 % (0-4); Lymphocytes # 1.1 K/mcL (0.6-4.6); Lymphocytes % 7.7 %; Mean Corpuscular HGB Conc 32.7 g/dL (31.6-35.5); Mean Corpuscular Hemoglobin 28.5 pg (28.0-33.3); Mean Platelet Volume 10.2 fL (9.4-12.4); Monocytes # 1.3 K/mcL (0.0-1.3); Monocytes % 9.3 %; Neutrophils # 11.3 K/mcL (1.6-8.9); Platelet Count 331 K/mcL (140-400); Red Blood Count 3.93 M/mcL (4.19-5.50); Red Cell Distribution Width 14.2 % (11.5-14.5); Segmented Neutrophils % 82.1 %; White Blood Count 13.7 K/mcL (4.3-11.1)
[2019-12-04 19:41] LABS: Bilirubin,Urine Negative (Negative); Blood,Urine Negative (Negative); Clarity,Urine Clear (Clear); Color,Urine Yellow (Yellow); Glucose,Urine (UA) >=1000 mg/dL (Normal); Ketones,Urine 40 mg/dL (Negative); Leukocyte Esterase,Urine Negative (Negative); Nitrite,Urine Negative (Negative); Protein,Urine Negative (Neg-Trace); Specific Gravity,Urine 1.029 (1.010-1.025); Urobilinogen,Urine Normal (Normal)
[2019-12-04] MEDS: 0.9 % Sodium Chloride 1,000 ML IVC SCH ×4 (19:46→23:00)
[2019-12-04 20:28] LABS: BUN/Creatinine Ratio 27 (6-26); Blood Urea Nitrogen 29 mg/dL (6-20); Carbon Dioxide 20 mEq/L (23-29); Chloride 88 mEq/L (98-107); Potassium 5.7 mEq/L (3.5-5.1); Sodium 128 mEq/L (136-145); eGFR For African Americans > 60 (> 60); eGFR For Non-African Americans > 60 (> 60)
[2019-12-04 20:29] LABS: Calcium 9.5 mg/dL (8.6-10.3); Troponin I < 0.03 ng/mL (< 0.04)
[2019-12-04 20:55] LABS: Glucose > 2400 mg/dL (70-105)
[2019-12-04] MEDS ORDERED: *HR* Dextrose 50 % in Water (Syg) 50 ML SYRINGE IVP PRN (21:05)
[2019-12-04] MEDS ORDERED: Insulin Human Regular 100 UNIT in 0.9 % Sodium Chloride 100 ML IVC SCH (21:15)
[2019-12-05] MEDS ORDERED: Acetaminophen 325 MG TABLET PO PRN ×2 (00:42→09:23)
[2019-12-05] MEDS ORDERED: Ondansetron ODT 4 MG TAB.RAPDIS SL PRN ×2 (00:42→09:23)
[2019-12-05] MEDS ORDERED: Naloxone 0.4 MG/ML INJ IVP PRN ×2 (00:42→09:23)
[2019-12-05] MEDS ORDERED: *HR* Dextrose 50 % in Water (Syg) 50 ML SYRINGE IVP PRN ×2 (00:45→09:23)
[2019-12-05] MEDS ORDERED: D5% in 0.45% NACL 1,000 ML IVC PRN (00:45)
[2019-12-05] MEDS: 0.9 % Sodium Chloride 1,000 ML IVC SCH ×4 (01:00→05:49)
[2019-12-05 01:02] LABS: Amphetamine Screen,Urine Positive ng/mL (Cutoff=1000); Barbiturate Screen,Urine Negative ng/mL (Cutoff=200); Benzodiazepines Screen,Urine Negative ng/mL (Cutoff=200); Cannabinoid Screen,Urine Negative ng/mL (Cutoff = 50); Cocaine Screen,Urine Negative ng/mL (Cutoff= 300); Opiate Screen,Urine Negative ng/mL (Cutoff=300); Phencyclidine Screen,Urine Negative ng/mL (Cutoff=25)
[2019-12-05] MEDS: 0.45 % Sodium Chloride w/KCl 20 MEQ/1,000 ML MLS IVC SCH ×4 (01:16→05:50)
[2019-12-05 01:36] LABS: BUN/Creatinine Ratio 29 (6-26); Blood Urea Nitrogen 23 mg/dL (6-20); Calcium 8.3 mg/dL (8.6-10.3); Carbon Dioxide 22 mEq/L (23-29); Chloride 101 mEq/L (98-107); Glucose 308 mg/dL (70-105); Osmolality,Calculated 291 (280-300); Phosphorous 2.6 mg/dL (2.7-4.5); Potassium 3.8 mEq/L (3.5-5.1); Sodium 133 mEq/L (136-145); eGFR For African Americans > 60 (> 60); eGFR For Non-African Americans > 60 (> 60)
[2019-12-05] MEDS: D5% in 0.45% NACL w KCl 20 MEQ/1,000 ML MLS IVC PRN ×2 (01:48→05:46)
[2019-12-05 04:38] LABS: Basophils # 0.1 K/mcL (0.0-0.2); Basophils % 0.6 %; Eosinophils # 0.1 K/mcL (0.0-0.6); Eosinophils % 0.9 %; Hematocrit 31.2 % (37.5-50.1); Hemoglobin 10.6 g/dL (12.9-16.9); Immature Granulocytes % 0.3 % (0-4); Lymphocytes # 2.1 K/mcL (0.6-4.6); Lymphocytes % 20.3 %; Mean Corpuscular Volume 82.5 fL (83.0-100.0); Mean Platelet Volume 9.4 fL (9.4-12.4); Monocytes % 10.1 %; Neutrophils # 6.9 K/mcL (1.6-8.9); Platelet Count 301 K/mcL (140-400); Red Blood Count 3.78 M/mcL (4.19-5.50); Red Cell Distribution Width 14.2 % (11.5-14.5); Segmented Neutrophils % 67.8 %; White Blood Count 10.2 K/mcL (4.3-11.1)
[2019-12-05 04:58] LABS: % Iron Saturation 46 % (20-55); Iron 161 mcg/dL (65-175); Transferrin 249 mg/dL (203-362)
[2019-12-05 05:00] LABS: Alanine Aminotransferase 35 Units/L (7-52); Albumin 3.5 g/dL (3.5-5.7); Albumin/Globulin Ratio 1.8 (1.1-2.2); Alkaline Phosphatase 70 Units/L (34-104); Aspartate Amino Transferase 39 Units/L (13-39); BUN/Creatinine Ratio 23 (6-26); Bilirubin,Total 0.5 mg/dL (0.3-1.0); Blood Urea Nitrogen 15 mg/dL (6-20); Calcium 8.2 mg/dL (8.6-10.3); Carbon Dioxide 25 mEq/L (23-29); Chloride 105 mEq/L (98-107); Glucose 164 mg/dL (70-105); Osmolality,Calculated 286 (280-300); Sodium 136 mEq/L (136-145); Total Protein 5.5 g/dL (6.4-8.9); eGFR For African Americans > 60 (> 60); eGFR For Non-African Americans > 60 (> 60)
[2019-12-05 05:07] LABS: VBG HCO3 27 mEq/L (21-27); VBG PCO2 50 mmHg (41-51); VBG PH 7.35 pH Units (7.32-7.42); VBG PO2 122 mmHg (25-50)
[2019-12-05] MEDS ORDERED: *HR* Heparin 5,000 UNIT/ML VIAL SQ SCH (06:00)
[2019-12-05] MEDS ORDERED: Insulin DETEMIR 100 UNIT/ML X5UNITS SQ ONE (06:09)
[2019-12-05] MEDS ORDERED: Dextrose Gel 15 GM/37.5 ML TUBE PO PRN ×4 (08:34→09:23)
[2019-12-05] MEDS ORDERED: D5% in Water 1,000 ML IVC PRN ×2 (08:34→09:23)
[2019-12-05] MEDS ORDERED: Gabapentin 300 MG CAPSULE PO SCH (09:00)
[2019-12-05] MEDS ORDERED: Insulin LISPRO 300 UNITS/3 ML VIAL SQ SCH ×2 (11:30→21:00)
[2019-12-05] MEDS: Insulin LISPRO 300 UNITS/3 ML VIAL SQ SCH ×3 (11:47→22:10)
[2019-12-05] MEDS: Gabapentin 300 MG CAPSULE PO SCH ×2 (15:53→22:10)
[2019-12-05] MEDS: *HR* Heparin 5,000 UNIT/ML VIAL SQ SCH (18:25)
[2019-12-06] MEDS: *HR* Heparin 5,000 UNIT/ML VIAL SQ SCH ×2 (07:19→18:00)
[2019-12-06 07:50] LABS: Estimated Average Glucose 243 mg/dl
[2019-12-06] MEDS: Gabapentin 300 MG CAPSULE PO SCH ×3 (08:05→21:30)
[2019-12-06] MEDS: Insulin LISPRO 300 UNITS/3 ML VIAL SQ SCH ×5 (08:06→21:29)
[2019-12-06 08:59] LABS: BUN/Creatinine Ratio 22 (6-26); Blood Urea Nitrogen 17 mg/dL (6-20); Calcium 9.3 mg/dL (8.6-10.3); Carbon Dioxide 23 mEq/L (23-29); Chloride 92 mEq/L (98-107); Glucose 686 mg/dL (70-105); Osmolality,Calculated 294 (280-300); Potassium 5.9 mEq/L (3.5-5.1); Sodium 125 mEq/L (136-145); eGFR For African Americans > 60 (> 60); eGFR For Non-African Americans > 60 (> 60)
[2019-12-06 16:44] LABS: BUN/Creatinine Ratio 19 (6-26); Blood Urea Nitrogen 15 mg/dL (6-20); Calcium 10.1 mg/dL (8.6-10.3); Carbon Dioxide 28 mEq/L (23-29); Chloride 100 mEq/L (98-107); Glucose 50 mg/dL (70-105); Osmolality,Calculated 280 (280-300); Sodium 136 mEq/L (136-145); eGFR For African Americans > 60 (> 60); eGFR For Non-African Americans > 60 (> 60)
[2019-12-06] MEDS ORDERED: Insulin DETEMIR 100 UNIT/ML X5UNITS SQ SCH ×3 (21:00)
[2019-12-06] MEDS: Insulin NPH/REG 70/30 100 UNIT/ML (x5UNIT) SQ SCH (21:30)
[2019-12-07] MEDS: *HR* Heparin 5,000 UNIT/ML VIAL SQ SCH ×2 (05:24→16:14)
[2019-12-07 06:49] LABS: VBG HCO3 30 mEq/L (21-27); VBG PCO2 54 mmHg (41-51); VBG PH 7.35 pH Units (7.32-7.42); VBG PO2 156 mmHg (25-50)
[2019-12-07 06:50] LABS: BUN/Creatinine Ratio 23 (6-26); Blood Urea Nitrogen 25 mg/dL (6-20); Calcium 9.8 mg/dL (8.6-10.3); Carbon Dioxide 28 mEq/L (23-29); Chloride 98 mEq/L (98-107); Glucose 134 mg/dL (70-105); Magnesium 1.8 mg/dL (1.6-2.6); Osmolality,Calculated 296 (280-300); Phosphorous 6.8 mg/dL (2.7-4.5); Potassium 4.1 mEq/L (3.5-5.1); Sodium 140 mEq/L (136-145); eGFR For African Americans > 60 (> 60); eGFR For Non-African Americans > 60 (> 60)
[2019-12-07] MEDS: Insulin LISPRO 300 UNITS/3 ML VIAL SQ SCH ×3 (08:36→16:07)
[2019-12-07] MEDS: Insulin NPH/REG 70/30 100 UNIT/ML (x5UNIT) SQ SCH (09:30)
[2019-12-07] MEDS: Gabapentin 300 MG CAPSULE PO SCH ×3 (09:30→20:26)
[2019-12-07 11:28] LABS: Hematocrit 37.9 % (37.5-50.1); Hemoglobin 12.4 g/dL (12.9-16.9); Mean Corpuscular HGB Conc 32.7 g/dL (31.6-35.5); Mean Corpuscular Hemoglobin 28.2 pg (28.0-33.3); Mean Corpuscular Volume 86.1 fL (83.0-100.0); Mean Platelet Volume 9.3 fL (9.4-12.4); Platelet Count 355 K/mcL (140-400); Red Cell Distribution Width 14.4 % (11.5-14.5); White Blood Count 11.7 K/mcL (4.3-11.1)
[2019-12-07] MEDS ORDERED: Insulin DETEMIR 100 UNIT/ML X5UNITS SQ SCH (21:00)
[2019-12-07] MEDS ORDERED: Insulin NPH/REG 70/30 100 UNIT/ML (x5UNIT) SQ ONE (22:15)
[2019-12-07] MEDS: *HR* LORazepam 1 MG TABLET PO PRN (22:35)
[2019-12-08 02:31] LABS: BUN/Creatinine Ratio 28 (6-26); Blood Urea Nitrogen 23 mg/dL (6-20); Calcium 8.7 mg/dL (8.6-10.3); Carbon Dioxide 27 mEq/L (23-29); Chloride 99 mEq/L (98-107); Glucose 452 mg/dL (70-105); Osmolality,Calculated 301 (280-300); Potassium 4.4 mEq/L (3.5-5.1); Sodium 134 mEq/L (136-145); eGFR For African Americans > 60 (> 60); eGFR For Non-African Americans > 60 (> 60)
[2019-12-08] MEDS ORDERED: Insulin LISPRO 300 UNITS/3 ML VIAL SQ ONE (04:00)
[2019-12-08] MEDS: *HR* Heparin 5,000 UNIT/ML VIAL SQ SCH ×2 (05:42→18:37)
[2019-12-08] MEDS: Insulin LISPRO 300 UNITS/3 ML VIAL SQ SCH ×3 (07:55→15:35)
[2019-12-08] MEDS: Gabapentin 300 MG CAPSULE PO SCH ×3 (08:02→20:46)
[2019-12-08] MEDS: Insulin NPH/REG 70/30 100 UNIT/ML (x5UNIT) SQ SCH (18:38)
[2019-12-08] MEDS: *HR* LORazepam 1 MG TABLET PO PRN (23:09)
[2019-12-09] MEDS: *HR* Heparin 5,000 UNIT/ML VIAL SQ SCH ×2 (04:14→16:44)
[2019-12-09] MEDS: Gabapentin 300 MG CAPSULE PO SCH ×3 (08:16→20:02)
[2019-12-09] MEDS: Insulin NPH/REG 70/30 100 UNIT/ML (x5UNIT) SQ SCH ×2 (08:17→16:44)
[2019-12-09] MEDS: Insulin LISPRO 300 UNITS/3 ML VIAL SQ SCH ×3 (08:17→16:43)
[2019-12-09 08:32] LABS: BUN/Creatinine Ratio 26 (6-26); Blood Urea Nitrogen 18 mg/dL (6-20); Calcium 8.9 mg/dL (8.6-10.3); Carbon Dioxide 28 mEq/L (23-29); Chloride 101 mEq/L (98-107); Glucose 268 mg/dL (70-105); Osmolality,Calculated 291 (280-300); Potassium 4.1 mEq/L (3.5-5.1); Sodium 135 mEq/L (136-145); eGFR For African Americans > 60 (> 60); eGFR For Non-African Americans > 60 (> 60)
[2019-12-09] MEDS: *HR* LORazepam 1 MG TABLET PO PRN (20:02)
[2019-12-10] MEDS: *HR* Heparin 5,000 UNIT/ML VIAL SQ SCH (05:02)
[2019-12-10 06:32] VITALS: BP 179/76
[2019-12-10] MEDS: Insulin NPH/REG 70/30 100 UNIT/ML (x5UNIT) SQ SCH (09:31)
[2019-12-10] MEDS: Gabapentin 300 MG CAPSULE PO SCH (09:32)
[2019-12-10] MEDS: Insulin LISPRO 300 UNITS/3 ML VIAL SQ SCH (09:32)
== END 2019-12-10 12:37 | disposition home or self-care (01) | DRG 420 ==
LOC: ICNU 18:52 → EMEROOARM 18:52 → SUATTDRO 22:48 → ICNU 23:27 → 3ANU 12-05 09:40
PROVIDERS: ADMIT Family Medicine; ATTEND Internal Medicine

== ENCOUNTER 2020-01-03 16:04 | Observation (INO) ==
[2020-01-03 16:42] LABS: Hematocrit 29.9 % (37.5-50.1); Hemoglobin 10.1 g/dL (12.9-16.9); Mean Corpuscular HGB Conc 33.8 g/dL (31.6-35.5); Mean Corpuscular Volume 82.8 fL (83.0-100.0); Mean Platelet Volume 9.3 fL (9.4-12.4); Platelet Count 314 K/mcL (140-400); Red Blood Count 3.61 M/mcL (4.19-5.50); Red Cell Distribution Width 15.6 % (11.5-14.5)
[2020-01-03 16:45] LABS: White Blood Count 12.3 K/mcL (4.3-11.1)
[2020-01-03 17:05] LABS: Eosinophils # 0.3 K/mcL (0.0-0.6); Large Platelets Present (Not Present); Lymphocytes # 0.7 K/mcL (0.6-4.6); Neutrophils # 10.3 K/mcL (1.6-8.9); Platelet Estimate Normal (Normal)
[2020-01-03 17:06] LABS: BUN/Creatinine Ratio 11 (6-26); Blood Urea Nitrogen 7 mg/dL (6-20); Calcium 8.5 mg/dL (8.6-10.3); Carbon Dioxide 15 mEq/L (23-29); Chloride 93 mEq/L (98-107); Glucose 249 mg/dL (70-105); Osmolality,Calculated 268 (280-300); Potassium 3.1 mEq/L (3.5-5.1); Sodium 126 mEq/L (136-145); Toxic Granulation Present (Not Present); eGFR For African Americans > 60 (> 60); eGFR For Non-African Americans > 60 (> 60)
[2020-01-03 17:10] LABS: Bilirubin,Urine Negative (Negative); Blood,Urine Negative (Negative); Clarity,Urine Clear (Clear); Color,Urine Yellow (Yellow); Glucose,Urine (UA) 250 mg/dL (Normal); Ketones,Urine >=160 mg/dL (Negative); Leukocyte Esterase,Urine Negative (Negative); Nitrite,Urine Negative (Negative); Protein,Urine 100 mg/dL (Neg-Trace); Specific Gravity,Urine 1.023 (1.010-1.025); Urobilinogen,Urine Normal (Normal)
[2020-01-03 17:11] LABS: Bacteria,Urine None Seen per hpf (None-Few); Hyaline Casts,Urine None Seen per lpf (None-Few); RBC,Urine 0-3 per hpf (0-3); Squamous Epithelial Cell,Urine Many per lpf (None-Few); WBC,Urine 0-3 per hpf (0-3)
[2020-01-03] MEDS ORDERED: levoFLOXacin 750 MG/150 ML 750 MG/150 ML BAG IVPB ONE (17:51)
[2020-01-03 17:59] LABS: VBG HCO3 16 mEq/L (21-27); VBG PCO2 27 mmHg (41-51); VBG PH 7.38 pH Units (7.32-7.42); VBG PO2 184 mmHg (25-50)
[2020-01-03] MEDS ORDERED: Potassium Chloride Elixir 20 MEQ/15 ML UDC PO ONE (18:02)
[2020-01-03] MEDS ORDERED: *HR* Dextrose 50 % in Water (Syg) 50 ML SYRINGE IVP PRN ×2 (18:03→18:05)
[2020-01-03] MEDS ORDERED: Potassium Chloride 40 MEQ, Lidocaine 1% 2 ML in 0.9 % Sodium Chloride 500 ML IVPB ONE (18:03)
[2020-01-03] MEDS ORDERED: D5% in 0.45% NACL w KCl 20 MEQ/1,000 ML MLS IVC PRN (18:05)
[2020-01-03] MEDS ORDERED: Insulin Human Regular 100 UNIT in 0.9 % Sodium Chloride 100 ML IVC SCH (18:15)
[2020-01-03] MEDS ORDERED: 0.9 % Sodium Chloride 1,000 ML IVC ONE (18:16)
[2020-01-03] MEDS ORDERED: Ondansetron 4 MG/2 ML VIAL IVP PRN (20:13)
[2020-01-03] MEDS ORDERED: Naloxone 0.4 MG/ML INJ IVP PRN (20:13)
[2020-01-03] MEDS ORDERED: Ketorolac 15 MG/ML VIAL IVP PRN (20:13)
[2020-01-03] MEDS ORDERED: Pantoprazole 40 MG VIAL IVP ONE (20:27)
[2020-01-03] MEDS ORDERED: NON-FORMULARY MEDICATION 1 EACH EACH (Quetiapine Fumarate [Seroquel] 400 MG) PO SCH (21:00)
[2020-01-03 21:53] LABS: Hematocrit 28.9 % (37.5-50.1); Hemoglobin 9.5 g/dL (12.9-16.9); Mean Corpuscular HGB Conc 32.9 g/dL (31.6-35.5); Mean Corpuscular Hemoglobin 27.8 pg (28.0-33.3); Mean Corpuscular Volume 84.5 fL (83.0-100.0); Mean Platelet Volume 9.2 fL (9.4-12.4); Platelet Count 294 K/mcL (140-400); Red Blood Count 3.42 M/mcL (4.19-5.50); Red Cell Distribution Width 15.4 % (11.5-14.5); White Blood Count 10.5 K/mcL (4.3-11.1)
[2020-01-03] MEDS ORDERED: QUEtiapine Fumarate 100 MG, QUEtiapine Fumarate 300 MG PO SCH (22:00)
[2020-01-03] MEDS: 0.45 % Sodium Chloride w/KCl 20 MEQ/1,000 ML MLS IVC SCH (22:00)
[2020-01-03] MEDS ORDERED: Ipratropium/Albuterol Neb 3 ML IH SCH (22:00)
[2020-01-03 22:12] LABS: % Iron Saturation 17 % (20-55); Iron 40 mcg/dL (65-175); Transferrin 171 mg/dL (203-362)
[2020-01-03] MEDS ORDERED: Ipratropium/Albuterol Neb 3 ML IH PRN (22:36)
[2020-01-03 22:38] LABS: Folate 18.7 ng/mL (3.0-16.0)
[2020-01-03 22:44] LABS: Alanine Aminotransferase 17 Units/L (7-52); Alkaline Phosphatase 110 Units/L (34-104); Aspartate Amino Transferase 19 Units/L (13-39); BUN/Creatinine Ratio 11 (6-26); Bilirubin,Total 0.4 mg/dL (0.3-1.0); Blood Urea Nitrogen 6 mg/dL (6-20); Calcium 8.1 mg/dL (8.6-10.3); Carbon Dioxide 19 mEq/L (23-29); Chloride 102 mEq/L (98-107); Globulin 3.1 g/dL (2.4-3.5); Glucose 84 mg/dL (70-105); Magnesium 1.6 mg/dL (1.6-2.6); Osmolality,Calculated 269 (280-300); Phosphorous < 1.0 mg/dL (2.7-4.5); Sodium 131 mEq/L (136-145); Total Protein 6.1 g/dL (6.4-8.9); eGFR For African Americans > 60 (> 60); eGFR For Non-African Americans > 60 (> 60)
[2020-01-03] MEDS ORDERED: Potassium Chloride 20 MEQ, Lidocaine 1% 2 ML in 0.9 % Sodium Chloride 250 ML IVPB ONE (22:48)
[2020-01-03] MEDS ORDERED: Potassium Phosphate 44 MEQ in 0.9 % Sodium Chloride 250 ML IVPB ONE (22:48)
[2020-01-03] MEDS ORDERED: Dextrose Gel 15 GM/37.5 ML TUBE PO PRN ×2 (22:58)
[2020-01-03] MEDS ORDERED: D5% in Water 1,000 ML IVC PRN (22:58)
[2020-01-03 23:16] LABS: VBG HCO3 21 mEq/L (21-27); VBG PCO2 36 mmHg (41-51); VBG PH 7.37 pH Units (7.32-7.42); VBG PO2 104 mmHg (25-50)
[2020-01-04] MEDS: Insulin LISPRO 300 UNITS/3 ML VIAL SQ SCH ×6 (01:16→12:18)
[2020-01-04] MEDS: 0.45 % Sodium Chloride w/KCl 20 MEQ/1,000 ML MLS IVC SCH ×5 (03:00→06:24)
[2020-01-04 05:01] LABS: VBG HCO3 20 mEq/L (21-27); VBG PCO2 35 mmHg (41-51); VBG PH 7.36 pH Units (7.32-7.42); VBG PO2 137 mmHg (25-50)
[2020-01-04 05:26] LABS: BUN/Creatinine Ratio 8 (6-26); Blood Urea Nitrogen 4 mg/dL (6-20); Calcium 7.8 mg/dL (8.6-10.3); Carbon Dioxide 20 mEq/L (23-29); Chloride 103 mEq/L (98-107); Glucose 198 mg/dL (70-105); Osmolality,Calculated 278 (280-300); Phosphorous 1.7 mg/dL (2.7-4.5); Potassium 3.9 mEq/L (3.5-5.1); Sodium 133 mEq/L (136-145); eGFR For African Americans > 60 (> 60); eGFR For Non-African Americans > 60 (> 60)
[2020-01-04] MEDS ORDERED: *HR* Heparin 5,000 UNIT/ML VIAL SQ SCH (06:00)
[2020-01-04] MEDS ORDERED: Pantoprazole 40 MG VIAL IVP SCH (06:30)
[2020-01-04] MEDS ORDERED: Insulin LISPRO 300 UNITS/3 ML VIAL SQ SCH ×2 (08:00→21:00)
[2020-01-04 08:17] LABS: Potassium,Urine 27.8 mEq/L; Sodium, Urine 47.6 mEq/L
[2020-01-04] MEDS ORDERED: Insulin NPH/REG 70/30 100 UNIT/ML (x5UNIT) SQ SCH (08:53)
[2020-01-04] MEDS ORDERED: levoFLOXacin 750 MG TABLET PO SCH (09:00)
[2020-01-04] MEDS ORDERED: levoFLOXacin 750 MG/150 ML 750 MG/150 ML BAG IVPB SCH (09:00)
[2020-01-04] MEDS ORDERED: PARoxetine 20 MG TABLET PO SCH (09:00)
[2020-01-04 09:33] LABS: Hematocrit 27.3 % (37.5-50.1); Mean Corpuscular Volume 84.8 fL (83.0-100.0); Mean Platelet Volume 9.5 fL (9.4-12.4); Platelet Count 266 K/mcL (140-400); Red Blood Count 3.22 M/mcL (4.19-5.50); Red Cell Distribution Width 15.7 % (11.5-14.5)
[2020-01-04 12:56] VITALS: BP 158/95
[2020-01-04] MEDS ORDERED: Insulin DETEMIR 100 UNIT/ML X5UNITS SQ SCH (21:00)
== END 2020-01-04 15:24 | disposition other institution (70) ==
LOC: 2NNU 16:04 → EMEROOARM 16:04 → SUATTDRO 18:39 → 2NNU 20:45 → 3BNU 01-04 13:25
PROVIDERS: ADMIT Internal Medicine; ATTEND Internal Medicine

== ENCOUNTER 2020-02-16 11:20 | Inpatient (IN) ==
[2020-02-16] MEDS ORDERED: 0.9 % Sodium Chloride 1,000 ML IVC ONE (11:33)
[2020-02-16] MEDS ORDERED: Ondansetron 4 MG/2 ML VIAL IVP ONE (11:33)
[2020-02-16 12:01] LABS: Bilirubin,Urine Negative (Negative); Blood,Urine Negative (Negative); Clarity,Urine Clear (Clear); Color,Urine Yellow (Yellow); Glucose,Urine (UA) >=1000 mg/dL (Normal); Ketones,Urine >=160 mg/dL (Negative); Leukocyte Esterase,Urine Negative (Negative); Nitrite,Urine Negative (Negative); PH,Urine 5.5 pH Units (5.0-8.0); Protein,Urine Negative (Neg-Trace); Specific Gravity,Urine 1.026 (1.010-1.025); Urobilinogen,Urine Normal (Normal)
[2020-02-16 12:26] LABS: Basophils % 0.2 %; Hematocrit 35.2 % (37.5-50.1); Hemoglobin 11.1 g/dL (12.9-16.9); Immature Granulocytes % 0.5 % (0-4); Lymphocytes % 7.5 %; Mean Corpuscular HGB Conc 31.5 g/dL (31.6-35.5); Mean Corpuscular Hemoglobin 27.2 pg (28.0-33.3); Mean Corpuscular Volume 86.3 fL (83.0-100.0); Mean Platelet Volume 9.5 fL (9.4-12.4); Monocytes % 7.7 %; Neutrophils # 10.8 K/mcL (1.6-8.9); Platelet Count 259 K/mcL (140-400); Red Blood Count 4.08 M/mcL (4.19-5.50); Red Cell Distribution Width 14.6 % (11.5-14.5); Segmented Neutrophils % 84.1 %; White Blood Count 12.9 K/mcL (4.3-11.1)
[2020-02-16 12:33] LABS: VBG HCO3 16 mEq/L (21-27); VBG PCO2 35 mmHg (41-51); VBG PH 7.25 pH Units (7.32-7.42); VBG PO2 90 mmHg (25-50)
[2020-02-16 12:41] LABS: Alanine Aminotransferase 48 Units/L (7-52); Albumin 4.6 g/dL (3.5-5.7); Albumin/Globulin Ratio 1.6 (1.1-2.2); Alkaline Phosphatase 104 Units/L (34-104); Aspartate Amino Transferase 65 Units/L (13-39); BUN/Creatinine Ratio 33 (6-26); Bilirubin,Direct 0.3 mg/dL (0.0-0.2); Bilirubin,Indirect 0.5 mg/dL (0.0-1.0); Bilirubin,Total 0.8 mg/dL (0.3-1.0); Blood Urea Nitrogen 31 mg/dL (6-20); Calcium 9.5 mg/dL (8.6-10.3); Carbon Dioxide 13 mEq/L (23-29); Chloride 89 mEq/L (98-107); Globulin 2.8 g/dL (2.4-3.5); Glucose 451 mg/dL (70-105); Lipase 3 Units/L (11-82); Osmolality,Calculated 284 (280-300); Potassium 4.9 mEq/L (3.5-5.1); Sodium 124 mEq/L (136-145); Total Protein 7.4 g/dL (6.4-8.9); eGFR For African Americans > 60 (> 60); eGFR For Non-African Americans > 60 (> 60)
[2020-02-16] MEDS ORDERED: Ringers Solution, Lactated 2,000 ML IVC ONE (12:41)
[2020-02-16] MEDS ORDERED: Insulin Human Regular 100 UNIT in 0.9 % Sodium Chloride 100 ML IVC SCH ×2 (12:45→15:00)
[2020-02-16] MEDS ORDERED: Isovue-370 500 ML BOTTLE IVP ONE (12:47)
[2020-02-16] MEDS ORDERED: Piperacillin/Tazobactam 3.375 GM in 0.9 % Sodium Chloride Mini Bag 100 ML IVPB ONE (13:00)
[2020-02-16] MEDS ORDERED: Doxycycline 100 MG in 0.9 % Sodium Chloride Mini Bag 100 ML IVPB ONE (13:00)
[2020-02-16] MEDS ORDERED: Naloxone 0.4 MG/ML INJ IVP PRN (14:12)
[2020-02-16] MEDS ORDERED: *HR* Promethazine 25 MG/ML VIAL IVP PRN (14:12)
[2020-02-16] MEDS ORDERED: Insulin Regular, Human 100 UNIT/ML IV PRN ×2 (14:14→15:00)
[2020-02-16] MEDS ORDERED: *HR* Dextrose 50 % in Water (Syg) 50 ML SYRINGE IVP PRN (14:14)
[2020-02-16] MEDS ORDERED: D5% in 0.45% NACL w KCl 20 MEQ/1,000 ML MLS IVC PRN ×2 (14:14→15:00)
[2020-02-16] MEDS ORDERED: Ketorolac 15 MG/ML VIAL IVP PRN (14:18)
[2020-02-16] MEDS ORDERED: D5% in 0.45% NACL 1,000 ML IVC PRN (15:00)
[2020-02-16] MEDS ORDERED: Gabapentin 300 MG CAPSULE PO SCH (15:00)
[2020-02-16] MEDS: 0.9 % Sodium Chloride w KCl 20 MEQ/1,000 ML MLS IVC SCH ×2 (15:24→20:54)
[2020-02-16 15:38] LABS: Phosphorous 3.4 mg/dL (2.7-4.5)
[2020-02-16 16:34] LABS: BUN/Creatinine Ratio 33 (6-26); Blood Urea Nitrogen 28 mg/dL (6-20); Calcium 8.5 mg/dL (8.6-10.3); Carbon Dioxide 12 mEq/L (23-29); Chloride 99 mEq/L (98-107); Glucose 343 mg/dL (70-105); Osmolality,Calculated 287 (280-300); Potassium 4.5 mEq/L (3.5-5.1); Sodium 129 mEq/L (136-145); eGFR For African Americans > 60 (> 60); eGFR For Non-African Americans > 60 (> 60)
[2020-02-16] MEDS: *HR* Heparin 5,000 UNIT/ML VIAL SQ SCH (17:35)
[2020-02-16 18:32] LABS: BUN/Creatinine Ratio 30 (6-26); Blood Urea Nitrogen 24 mg/dL (6-20); Calcium 8.7 mg/dL (8.6-10.3); Carbon Dioxide 17 mEq/L (23-29); Chloride 101 mEq/L (98-107); Glucose 193 mg/dL (70-105); Osmolality,Calculated 281 (280-300); Potassium 4.6 mEq/L (3.5-5.1); Sodium 131 mEq/L (136-145); eGFR For African Americans > 60 (> 60); eGFR For Non-African Americans > 60 (> 60)
[2020-02-16] MEDS: *HR* Dextrose 50 % in Water (Syg) 50 ML SYRINGE IVP PRN ×2 (20:12→20:48)
[2020-02-16 20:15] LABS: BUN/Creatinine Ratio 28 (6-26); Blood Urea Nitrogen 22 mg/dL (6-20); Calcium 8.6 mg/dL (8.6-10.3); Carbon Dioxide 22 mEq/L (23-29); Chloride 105 mEq/L (98-107); Glucose 64 mg/dL (70-105); Osmolality,Calculated 279 (280-300); Sodium 134 mEq/L (136-145); eGFR For African Americans > 60 (> 60); eGFR For Non-African Americans > 60 (> 60)
[2020-02-16] MEDS: QUEtiapine Fumarate 300 MG TABLET PO SCH (20:33)
[2020-02-16] MEDS: Gabapentin 300 MG CAPSULE PO SCH (20:33)
[2020-02-16] MEDS: Cefepime HCl 1,000 MG in Water for inj. (sterile) 10 ML IVP SCH (20:34)
[2020-02-16 22:21] LABS: VBG HCO3 21 mEq/L (21-27); VBG PCO2 39 mmHg (41-51); VBG PH 7.34 pH Units (7.32-7.42); VBG PO2 208 mmHg (25-50)
[2020-02-16 22:39] LABS: BUN/Creatinine Ratio 25 (6-26); Blood Urea Nitrogen 18 mg/dL (6-20); Calcium 8.4 mg/dL (8.6-10.3); Carbon Dioxide 20 mEq/L (23-29); Chloride 106 mEq/L (98-107); Glucose 96 mg/dL (70-105); Osmolality,Calculated 276 (280-300); Potassium 3.9 mEq/L (3.5-5.1); Sodium 132 mEq/L (136-145); eGFR For African Americans > 60 (> 60); eGFR For Non-African Americans > 60 (> 60)
[2020-02-16] MEDS ORDERED: D5% in Water 1,000 ML IVC PRN (23:14)
[2020-02-16] MEDS ORDERED: Dextrose Gel 15 GM/37.5 ML TUBE PO PRN ×2 (23:14)
[2020-02-17 01:02] LABS: BUN/Creatinine Ratio 23 (6-26); Blood Urea Nitrogen 16 mg/dL (6-20); Calcium 8.6 mg/dL (8.6-10.3); Carbon Dioxide 19 mEq/L (23-29); Chloride 106 mEq/L (98-107); Glucose 120 mg/dL (70-105); Osmolality,Calculated 280 (280-300); Potassium 4.2 mEq/L (3.5-5.1); Sodium 134 mEq/L (136-145); eGFR For African Americans > 60 (> 60); eGFR For Non-African Americans > 60 (> 60)
[2020-02-17] MEDS: *HR* Heparin 5,000 UNIT/ML VIAL SQ SCH ×2 (02:33→17:18)
[2020-02-17 02:45] LABS: Phosphorous 3.2 mg/dL (2.7-4.5)
[2020-02-17 02:48] LABS: BUN/Creatinine Ratio 23 (6-26); Blood Urea Nitrogen 15 mg/dL (6-20); Calcium 8.6 mg/dL (8.6-10.3); Carbon Dioxide 18 mEq/L (23-29); Chloride 105 mEq/L (98-107); Glucose 170 mg/dL (70-105); Osmolality,Calculated 283 (280-300); Potassium 4.4 mEq/L (3.5-5.1); Sodium 134 mEq/L (136-145); eGFR For African Americans > 60 (> 60); eGFR For Non-African Americans > 60 (> 60)
[2020-02-17] MEDS: Cefepime HCl 1,000 MG in Water for inj. (sterile) 10 ML IVP SCH ×3 (05:53→21:12)
[2020-02-17] MEDS ORDERED: Insulin DETEMIR 100 UNIT/ML X5UNITS SQ ONE (07:30)
[2020-02-17] MEDS: PARoxetine 20 MG TABLET PO SCH (07:39)
[2020-02-17] MEDS: Insulin LISPRO 300 UNITS/3 ML VIAL SQ SCH ×3 (08:42→17:25)
[2020-02-17] MEDS: Gabapentin 300 MG CAPSULE PO SCH ×3 (08:44→21:12)
[2020-02-17] MEDS: 0.9 % Sodium Chloride 1,000 ML IVC SCH ×2 (09:19→21:10)
[2020-02-17] MEDS ORDERED: Insulin DETEMIR 100 UNIT/ML X5UNITS SQ SCH ×2 (21:00)
[2020-02-17] MEDS ORDERED: Insulin LISPRO 300 UNITS/3 ML VIAL SQ SCH (21:00)
[2020-02-17] MEDS: QUEtiapine Fumarate 300 MG TABLET PO SCH (22:43)
[2020-02-18 00:49] LABS: Hematocrit 30.3 % (37.5-50.1); Mean Corpuscular Hemoglobin 27.1 pg (28.0-33.3); Mean Corpuscular Volume 87.3 fL (83.0-100.0); Mean Platelet Volume 9.6 fL (9.4-12.4); Platelet Count 194 K/mcL (140-400); Red Blood Count 3.47 M/mcL (4.19-5.50)
[2020-02-18 00:54] LABS: Hemoglobin 9.4 g/dL (12.9-16.9); White Blood Count 6.3 K/mcL (4.3-11.1)
[2020-02-18 01:08] LABS: BUN/Creatinine Ratio 26 (6-26); Blood Urea Nitrogen 20 mg/dL (6-20); Calcium 8.2 mg/dL (8.6-10.3); Carbon Dioxide 21 mEq/L (23-29); Chloride 103 mEq/L (98-107); Glucose 399 mg/dL (70-105); Osmolality,Calculated 291 (280-300); Potassium 3.8 mEq/L (3.5-5.1); Sodium 131 mEq/L (136-145); eGFR For African Americans > 60 (> 60); eGFR For Non-African Americans > 60 (> 60)
[2020-02-18] MEDS: *HR* Heparin 5,000 UNIT/ML VIAL SQ SCH ×3 (05:51→22:08)
[2020-02-18] MEDS: Cefepime HCl 1,000 MG in Water for inj. (sterile) 10 ML IVP SCH ×3 (05:55→20:30)
[2020-02-18] MEDS ORDERED: Insulin DETEMIR 100 UNIT/ML X5UNITS SQ SCH (07:45)
[2020-02-18] MEDS: Gabapentin 300 MG CAPSULE PO SCH ×3 (08:58→20:31)
[2020-02-18] MEDS: PARoxetine 20 MG TABLET PO SCH (08:58)
[2020-02-18] MEDS: 0.9 % Sodium Chloride 1,000 ML IVC SCH ×2 (08:59→20:54)
[2020-02-18] MEDS: Pantoprazole 40 MG VIAL IVP SCH (08:59)
[2020-02-18] MEDS: Insulin NPH/REG 70/30 100 UNIT/ML (x5UNIT) SQ SCH ×2 (08:59→17:37)
[2020-02-18] MEDS: Insulin LISPRO 300 UNITS/3 ML VIAL SQ SCH ×3 (09:00→17:36)
[2020-02-18 12:28] LABS: Estimated Average Glucose 214 mg/dl
[2020-02-18] MEDS: QUEtiapine Fumarate 300 MG TABLET PO SCH (20:31)
[2020-02-18] MEDS ORDERED: Insulin LISPRO 300 UNITS/3 ML VIAL SQ SCH (21:00)
[2020-02-19] MEDS: Cefepime HCl 1,000 MG in Water for inj. (sterile) 10 ML IVP SCH (06:00)
[2020-02-19 07:18] VITALS: BP 143/88
[2020-02-19] MEDS: Insulin LISPRO 300 UNITS/3 ML VIAL SQ SCH (08:11)
[2020-02-19] MEDS: PARoxetine 20 MG TABLET PO SCH (09:34)
[2020-02-19] MEDS: Pantoprazole 40 MG VIAL IVP SCH (09:34)
[2020-02-19] MEDS: Gabapentin 300 MG CAPSULE PO SCH (09:35)
[2020-02-19] MEDS: Insulin NPH/REG 70/30 100 UNIT/ML (x5UNIT) SQ SCH (09:38)
[2020-02-19] MEDS ORDERED: Aminoglycoside Consult 1 EACH MC ONE (12:55)
== END 2020-02-19 12:56 | disposition home or self-care (01) | DRG 720 ==
LOC: EMEROOARM 11:20 → 2NNU 11:20 → SUATTDRO 14:00 → 2NNU 14:56 → 3BNU 02-17 16:12
PROVIDERS: ADMIT Internal Medicine; ATTEND Internal Medicine

== ENCOUNTER 2020-02-23 15:28 | Observation (INO) ==
[2020-02-23] MEDS ORDERED: Isovue-370 500 ML BOTTLE IVP ONE (15:39)
[2020-02-23] MEDS ORDERED: Ondansetron 4 MG/2 ML VIAL IVP ONE ×2 (15:40→19:41)
[2020-02-23] MEDS ORDERED: 0.9 % Sodium Chloride 1,000 ML IV ONE (15:40)
[2020-02-23 16:12] LABS: Basophils % 0.5 %; Eosinophils % 0.1 %; Hematocrit 38.1 % (37.5-50.1); Immature Granulocytes % 0.6 % (0-4); Lymphocytes # 1.1 K/mcL (0.6-4.6); Lymphocytes % 12.2 %; Mean Corpuscular HGB Conc 30.4 g/dL (31.6-35.5); Mean Corpuscular Hemoglobin 27.6 pg (28.0-33.3); Mean Corpuscular Volume 90.5 fL (83.0-100.0); Mean Platelet Volume 9.2 fL (9.4-12.4); Monocytes # 0.4 K/mcL (0.0-1.3); Monocytes % 4.5 %; Neutrophils # 7.1 K/mcL (1.6-8.9); Platelet Count 360 K/mcL (140-400); Red Blood Count 4.21 M/mcL (4.19-5.50); Red Cell Distribution Width 15.5 % (11.5-14.5); Segmented Neutrophils % 82.1 %; White Blood Count 8.7 K/mcL (4.3-11.1)
[2020-02-23 16:13] LABS: Hemoglobin 11.6 g/dL (12.9-16.9)
[2020-02-23 16:18] LABS: VBG HCO3 11 mEq/L (21-27); VBG PCO2 22 mmHg (41-51); VBG PH 7.31 pH Units (7.32-7.42); VBG PO2 184 mmHg (25-50)
[2020-02-23] MEDS ORDERED: Doxycycline 100 MG in 0.9 % Sodium Chloride Mini Bag 100 ML IVPB ONE (17:06)
[2020-02-23 17:12] LABS: Alanine Aminotransferase 71 Units/L (7-52); Albumin 4.3 g/dL (3.5-5.7); Albumin/Globulin Ratio 1.5 (1.1-2.2); Alkaline Phosphatase 107 Units/L (34-104); Aspartate Amino Transferase 62 Units/L (13-39); BUN/Creatinine Ratio 15 (6-26); Bilirubin,Total 0.5 mg/dL (0.3-1.0); Blood Urea Nitrogen 13 mg/dL (6-20); Calcium 9.1 mg/dL (8.6-10.3); Carbon Dioxide 8 mEq/L (23-29); Chloride 96 mEq/L (98-107); Globulin 2.8 g/dL (2.4-3.5); Glucose 475 mg/dL (70-105); Magnesium 1.8 mg/dL (1.6-2.6); Osmolality,Calculated 287 (280-300); Phosphorous 2.8 mg/dL (2.7-4.5); Potassium 4.6 mEq/L (3.5-5.1); Sodium 128 mEq/L (136-145); Total Protein 7.1 g/dL (6.4-8.9); Troponin I < 0.03 ng/mL (< 0.04); eGFR For African Americans > 60 (> 60); eGFR For Non-African Americans > 60 (> 60)
[2020-02-23] MEDS ORDERED: Insulin Regular, Human 100 UNIT/ML IV ONE (17:23)
[2020-02-23] MEDS ORDERED: *HR* Dextrose 50 % in Water (Syg) 50 ML SYRINGE IVP PRN ×2 (17:23→19:01)
[2020-02-23] MEDS ORDERED: Insulin Human Regular 100 UNIT in 0.9 % Sodium Chloride 100 ML IVC SCH ×2 (17:30→19:15)
[2020-02-23] MEDS ORDERED: D5% in 0.45% NACL 1,000 ML IVC PRN (19:01)
[2020-02-23] MEDS ORDERED: D5% in 0.45% NACL w KCl 20 MEQ/1,000 ML MLS IVC PRN (19:01)
[2020-02-23] MEDS: 0.9 % Sodium Chloride w KCl 20 MEQ/1,000 ML MLS IVC SCH ×2 (19:01→23:31)
[2020-02-23] MEDS ORDERED: Ipratropium/Albuterol Neb 3 ML IH PRN (19:07)
[2020-02-23] MEDS ORDERED: Ondansetron 4 MG/2 ML VIAL IVP PRN (19:08)
[2020-02-23] MEDS ORDERED: 0.9 % Sodium Chloride 1,000 ML IVC SCH (19:15)
[2020-02-23 20:45] LABS: BUN/Creatinine Ratio 14 (6-26); Blood Urea Nitrogen 13 mg/dL (6-20); Calcium 8.8 mg/dL (8.6-10.3); Carbon Dioxide 7 mEq/L (23-29); Chloride 100 mEq/L (98-107); Glucose 430 mg/dL (70-105); Osmolality,Calculated 291 (280-300); Potassium 4.3 mEq/L (3.5-5.1); Sodium 131 mEq/L (136-145); eGFR For African Americans > 60 (> 60); eGFR For Non-African Americans > 60 (> 60)
[2020-02-23 21:19] LABS: Adenovirus Not Detected (Not Detect); Coronavirus 229E Not Detected (Not Detect); Coronavirus HKU1 Not Detected (Not Detect); Coronavirus NL63 Not Detected (Not Detect); Coronavirus OC43 Not Detected (Not Detect); Human Metapneumovirus Not Detected (Not Detect); Human Rhinovirus/Enterovirus Not Detected (Not Detect); Influenza A Subtype 2009 H1 Not Detected (Not Detect); Influenza B Not Detected (Not Detect); Parainfluenza Virus 1 Not Detected (Not Detect); Parainfluenza Virus 2 Not Detected (Not Detect); Parainfluenza Virus 3 Not Detected (Not Detect)
[2020-02-23 21:20] LABS: Bordetella Pertussis Not Detected (Not Detect); Chlamydophila pneumoniae Not Detected (Not Detect); Mycoplasma pneumoniae Not Detected (Not Detect); Parainfluenza Virus 4 Not Detected (Not Detect); Respiratory Syncytial Virus Not Detected (Not Detect)
[2020-02-23] MEDS: *HR* Heparin 5,000 UNIT/ML VIAL SQ SCH (22:15)
[2020-02-23 22:56] LABS: BUN/Creatinine Ratio 13 (6-26); Blood Urea Nitrogen 12 mg/dL (6-20); Calcium 8.8 mg/dL (8.6-10.3); Carbon Dioxide 12 mEq/L (23-29); Chloride 103 mEq/L (98-107); Glucose 287 mg/dL (70-105); Osmolality,Calculated 288 (280-300); Potassium 4.2 mEq/L (3.5-5.1); Sodium 134 mEq/L (136-145); Troponin I < 0.03 ng/mL (< 0.04); eGFR For African Americans > 60 (> 60); eGFR For Non-African Americans > 60 (> 60)
[2020-02-23] MEDS: Piperacillin/Tazobactam 3.375 GM in 0.9 % Sodium Chloride Mini Bag 100 ML IVPB SCH (23:15)
[2020-02-24] MEDS ORDERED: Insulin Human Regular 100 UNIT in 0.9 % Sodium Chloride 100 ML IVC SCH (00:30)
[2020-02-24] MEDS: 0.9 % Sodium Chloride 1,000 ML IVC SCH ×3 (01:37→17:53)
[2020-02-24] MEDS: 0.45 % Sodium Chloride w/KCl 20 MEQ/1,000 ML MLS IVC SCH ×5 (01:37→03:50)
[2020-02-24] MEDS: 0.9 % Sodium Chloride w KCl 20 MEQ/1,000 ML MLS IVC SCH ×2 (01:39→03:50)
[2020-02-24] MEDS: *HR* Heparin 5,000 UNIT/ML VIAL SQ SCH ×3 (01:43→20:29)
[2020-02-24 03:50] LABS: Basophils % 0.3 %; Eosinophils % 0.3 %; Hematocrit 34.6 % (37.5-50.1); Hemoglobin 11.1 g/dL (12.9-16.9); Immature Granulocytes % 0.7 % (0-4); Lymphocytes # 1.7 K/mcL (0.6-4.6); Lymphocytes % 23.9 %; Mean Corpuscular HGB Conc 32.1 g/dL (31.6-35.5); Mean Corpuscular Hemoglobin 27.5 pg (28.0-33.3); Mean Corpuscular Volume 85.9 fL (83.0-100.0); Mean Platelet Volume 8.6 fL (9.4-12.4); Monocytes # 0.4 K/mcL (0.0-1.3); Monocytes % 5.8 %; Platelet Count 310 K/mcL (140-400); Red Blood Count 4.03 M/mcL (4.19-5.50); Red Cell Distribution Width 15.4 % (11.5-14.5); White Blood Count 7.3 K/mcL (4.3-11.1)
[2020-02-24 03:54] LABS: INR 1.1; Prothrombin Time 12.5 Seconds (9.4-12.1)
[2020-02-24 04:14] LABS: BUN/Creatinine Ratio 13 (6-26); Blood Urea Nitrogen 10 mg/dL (6-20); Calcium 8.5 mg/dL (8.6-10.3); Carbon Dioxide 18 mEq/L (23-29); Chloride 109 mEq/L (98-107); Glucose 149 mg/dL (70-105); Magnesium 1.8 mg/dL (1.6-2.6); Osmolality,Calculated 284 (280-300); Phosphorous 1.8 mg/dL (2.7-4.5); Potassium 3.8 mEq/L (3.5-5.1); Sodium 136 mEq/L (136-145); eGFR For African Americans > 60 (> 60); eGFR For Non-African Americans > 60 (> 60)
[2020-02-24] MEDS ORDERED: Insulin DETEMIR 100 UNIT/ML X5UNITS SQ ONE (05:27)
[2020-02-24] MEDS ORDERED: Insulin DETEMIR 100 UNIT/ML X5UNITS SQ SCH ×3 (06:00→21:00)
[2020-02-24] MEDS: PARoxetine 20 MG TABLET PO SCH (08:22)
[2020-02-24] MEDS: Piperacillin/Tazobactam 3.375 GM in 0.9 % Sodium Chloride Mini Bag 100 ML IVPB SCH ×3 (08:22→23:50)
[2020-02-24] MEDS: Pantoprazole 40 MG VIAL IVP SCH (08:22)
[2020-02-24] MEDS ORDERED: D5% in Water 1,000 ML IVC PRN (09:46)
[2020-02-24] MEDS ORDERED: *HR* Dextrose 50 % in Water (Syg) 50 ML SYRINGE IVP PRN (09:46)
[2020-02-24] MEDS ORDERED: Dextrose Gel 15 GM/37.5 ML TUBE PO PRN ×2 (09:46)
[2020-02-24] MEDS: Insulin LISPRO 300 UNITS/3 ML VIAL SQ SCH ×2 (12:24→16:10)
[2020-02-24] MEDS ORDERED: Insulin NPH/REG 70/30 100 UNIT/ML (x5UNIT) SQ SCH (17:15)
[2020-02-24] MEDS ORDERED: Insulin Human Regular 10 UNIT in 0.9 % Sodium Chloride 10 ML IV ONE (17:28)
[2020-02-24] MEDS: Cholecalciferol (D-3) 1,000 UNIT (25MCG) TABLET PO SCH (17:54)
[2020-02-24] MEDS: Gabapentin 300 MG CAPSULE PO SCH (20:28)
[2020-02-24] MEDS: Insulin NPH/REG 70/30 100 UNIT/ML (x5UNIT) SQ SCH (20:44)
[2020-02-24] MEDS ORDERED: QUEtiapine Fumarate 300 MG TABLET PO SCH (21:00)
[2020-02-24] MEDS ORDERED: Insulin LISPRO 300 UNITS/3 ML VIAL SQ SCH (21:00)
[2020-02-25] MEDS: *HR* Heparin 5,000 UNIT/ML VIAL SQ SCH (01:25)
[2020-02-25] MEDS: 0.9 % Sodium Chloride 1,000 ML IVC SCH (03:20)
[2020-02-25 04:07] LABS: Basophils % 0.5 %; Eosinophils # 0.1 K/mcL (0.0-0.6); Eosinophils % 2.1 %; Hematocrit 33.5 % (37.5-50.1); Hemoglobin 10.9 g/dL (12.9-16.9); Immature Granulocytes % 0.5 % (0-4); Lymphocytes # 1.5 K/mcL (0.6-4.6); Lymphocytes % 34.6 %; Mean Corpuscular HGB Conc 32.5 g/dL (31.6-35.5); Mean Corpuscular Hemoglobin 28.2 pg (28.0-33.3); Mean Corpuscular Volume 86.6 fL (83.0-100.0); Mean Platelet Volume 8.9 fL (9.4-12.4); Monocytes # 0.4 K/mcL (0.0-1.3); Monocytes % 9.5 %; Neutrophils # 2.3 K/mcL (1.6-8.9); Platelet Count 259 K/mcL (140-400); Red Blood Count 3.87 M/mcL (4.19-5.50); Red Cell Distribution Width 15.1 % (11.5-14.5); Segmented Neutrophils % 52.8 %; White Blood Count 4.3 K/mcL (4.3-11.1)
[2020-02-25 04:28] LABS: BUN/Creatinine Ratio 19 (6-26); Blood Urea Nitrogen 15 mg/dL (6-20); Calcium 8.6 mg/dL (8.6-10.3); Carbon Dioxide 24 mEq/L (23-29); Chloride 106 mEq/L (98-107); Glucose 254 mg/dL (70-105); Osmolality,Calculated 291 (280-300); Potassium 3.3 mEq/L (3.5-5.1); Sodium 136 mEq/L (136-145); eGFR For African Americans > 60 (> 60); eGFR For Non-African Americans > 60 (> 60)
[2020-02-25] MEDS: Pantoprazole 40 MG VIAL IVP SCH (08:40)
[2020-02-25] MEDS: PARoxetine 20 MG TABLET PO SCH (08:40)
[2020-02-25] MEDS: Gabapentin 300 MG CAPSULE PO SCH (08:40)
[2020-02-25] MEDS: Cholecalciferol (D-3) 1,000 UNIT (25MCG) TABLET PO SCH (08:40)
[2020-02-25] MEDS: Piperacillin/Tazobactam 3.375 GM in 0.9 % Sodium Chloride Mini Bag 100 ML IVPB SCH (08:40)
[2020-02-25] MEDS: Insulin LISPRO 300 UNITS/3 ML VIAL SQ SCH (08:42)
[2020-02-25] MEDS: Insulin NPH/REG 70/30 100 UNIT/ML (x5UNIT) SQ SCH (08:43)
[2020-02-25] MEDS ORDERED: QUEtiapine Fumarate 25 MG TABLET PO SCH (09:00)
[2020-02-25 09:11] VITALS: BP 139/82
== END 2020-02-25 11:07 | disposition home or self-care (01) ==
LOC: EMEROOARM 15:28 → 2NNU 15:28 → SUATTDRO 20:35 → 2NNU 22:30
PROVIDERS: ADMIT Family Medicine; ATTEND Family Medicine

== ENCOUNTER 2020-02-28 01:08 | Observation (INO) ==
[2020-02-28 02:12] LABS: Basophils % 0.2 %; Eosinophils # 0.1 K/mcL (0.0-0.6); Eosinophils % 1.6 %; Hematocrit 29.9 % (37.5-50.1); Hemoglobin 9.9 g/dL (12.9-16.9); Immature Granulocytes % 0.5 % (0-4); Lymphocytes # 1.2 K/mcL (0.6-4.6); Lymphocytes % 22.1 %; Mean Corpuscular HGB Conc 33.1 g/dL (31.6-35.5); Mean Corpuscular Hemoglobin 28.3 pg (28.0-33.3); Mean Corpuscular Volume 85.4 fL (83.0-100.0); Mean Platelet Volume 9.3 fL (9.4-12.4); Monocytes # 0.9 K/mcL (0.0-1.3); Monocytes % 16.3 %; Neutrophils # 3.3 K/mcL (1.6-8.9); Platelet Count 239 K/mcL (140-400); Red Cell Distribution Width 15.4 % (11.5-14.5); Segmented Neutrophils % 59.3 %; White Blood Count 5.5 K/mcL (4.3-11.1)
[2020-02-28 02:31] LABS: Acetaminophen < 10 mcg/mL (10-20); BUN/Creatinine Ratio 15 (6-26); Blood Urea Nitrogen 11 mg/dL (6-20); Calcium 9.1 mg/dL (8.6-10.3); Carbon Dioxide 23 mEq/L (23-29); Chloride 95 mEq/L (98-107); Ethanol < 10 mg/dL (Less than 10); Glucose 125 mg/dL (70-105); Osmolality,Calculated 277 (280-300); Potassium 3.2 mEq/L (3.5-5.1); Salicylate < 2.5 mg/dL (15.0-30.0); Sodium 133 mEq/L (136-145); eGFR For African Americans > 60 (> 60); eGFR For Non-African Americans > 60 (> 60)
[2020-02-28 02:43] LABS: Bilirubin,Urine Small (Negative); Blood,Urine Negative (Negative); Clarity,Urine Clear (Clear); Color,Urine Yellow (Yellow); Glucose,Urine (UA) >=1000 mg/dL (Normal); Ketones,Urine 80 mg/dL (Negative); Leukocyte Esterase,Urine Negative (Negative); Nitrite,Urine Negative (Negative); Protein,Urine 100 mg/dL (Neg-Trace); Specific Gravity,Urine 1.028 (1.010-1.025); Urobilinogen,Urine Normal (Normal)
[2020-02-28 02:45] LABS: Bacteria,Urine None Seen per hpf (None-Few); Hyaline Casts,Urine None Seen per lpf (None-Few); Squamous Epithelial Cell,Urine Many per lpf (None-Few); WBC,Urine 0-3 per hpf (0-3)
[2020-02-28 02:58] LABS: Amphetamine Screen,Urine Positive ng/mL (Cutoff=1000); Barbiturate Screen,Urine Negative ng/mL (Cutoff=200); Benzodiazepines Screen,Urine Negative ng/mL (Cutoff=200); Cannabinoid Screen,Urine Negative ng/mL (Cutoff = 50); Cocaine Screen,Urine Negative ng/mL (Cutoff= 300); Opiate Screen,Urine Negative ng/mL (Cutoff=300); Phencyclidine Screen,Urine Negative ng/mL (Cutoff=25)
[2020-02-28] MEDS ORDERED: Insulin NPH/REG 70/30 100 UNIT/ML (x5UNIT) SQ STA (11:17)
[2020-02-28] MEDS ORDERED: Naloxone 0.4 MG/ML INJ IVP PRN (20:23)
[2020-02-28] MEDS ORDERED: Ketorolac 30 MG/ML VIAL IM PRN (21:33)
[2020-02-28] MEDS ORDERED: Dextrose Gel 15 GM/37.5 ML TUBE PO PRN ×2 (21:37)
[2020-02-28] MEDS ORDERED: *HR* Dextrose 50 % in Water (Syg) 50 ML SYRINGE IVP PRN (21:37)
[2020-02-28] MEDS ORDERED: D5% in Water 1,000 ML IVC PRN (21:37)
[2020-02-28] MEDS ORDERED: Ketorolac 30 MG/ML VIAL IVP PRN (21:52)
[2020-02-28] MEDS ORDERED: 0.9 % Sodium Chloride 1,000 ML IVC ONE (21:56)
[2020-02-28] MEDS ORDERED: Insulin LISPRO 300 UNITS/3 ML VIAL SQ SCH (22:00)
[2020-02-28 22:13] LABS: Hematocrit 32.6 % (37.5-50.1); Hemoglobin 10.5 g/dL (12.9-16.9); Mean Corpuscular HGB Conc 32.2 g/dL (31.6-35.5); Mean Corpuscular Hemoglobin 27.3 pg (28.0-33.3); Mean Corpuscular Volume 84.7 fL (83.0-100.0); Mean Platelet Volume 9.4 fL (9.4-12.4); Platelet Count 271 K/mcL (140-400); Red Blood Count 3.85 M/mcL (4.19-5.50); Red Cell Distribution Width 15.4 % (11.5-14.5); White Blood Count 5.6 K/mcL (4.3-11.1)
[2020-02-28 22:19] LABS: VBG HCO3 30 mEq/L (21-27); VBG PCO2 29 mmHg (41-51); VBG PH 7.62 pH Units (7.32-7.42); VBG PO2 124 mmHg (25-50)
[2020-02-28 22:32] LABS: Magnesium 1.5 mg/dL (1.6-2.6); Phosphorous 1.9 mg/dL (2.7-4.5)
[2020-02-28 22:33] LABS: Alanine Aminotransferase 85 Units/L (7-52); Albumin 3.4 g/dL (3.5-5.7); Albumin/Globulin Ratio 1.4 (1.1-2.2); Alkaline Phosphatase 94 Units/L (34-104); Aspartate Amino Transferase 91 Units/L (13-39); BUN/Creatinine Ratio 9 (6-26); Bilirubin,Total 0.3 mg/dL (0.3-1.0); Blood Urea Nitrogen 7 mg/dL (6-20); Calcium 8.6 mg/dL (8.6-10.3); Carbon Dioxide 27 mEq/L (23-29); Chloride 97 mEq/L (98-107); Globulin 2.4 g/dL (2.4-3.5); Glucose 338 mg/dL (70-105); Osmolality,Calculated 287 (280-300); Potassium 3.8 mEq/L (3.5-5.1); Sodium 133 mEq/L (136-145); Total Protein 5.8 g/dL (6.4-8.9); eGFR For African Americans > 60 (> 60); eGFR For Non-African Americans > 60 (> 60)
[2020-02-28] MEDS ORDERED: QUEtiapine Fumarate 300 MG TABLET PO SCH (22:46)
[2020-02-28] MEDS: Gabapentin 300 MG CAPSULE PO SCH (23:01)
[2020-02-28] MEDS: Insulin NPH/REG 70/30 100 UNIT/ML (x5UNIT) SQ SCH (23:02)
[2020-02-29 01:44] LABS: Basophils % 0.4 %; Eosinophils # 0.1 K/mcL (0.0-0.6); Eosinophils % 2.2 %; Hematocrit 30.4 % (37.5-50.1); Hemoglobin 9.9 g/dL (12.9-16.9); Immature Granulocytes % 0.2 % (0-4); Lymphocytes % 20.4 %; Mean Corpuscular HGB Conc 32.6 g/dL (31.6-35.5); Mean Corpuscular Volume 85.9 fL (83.0-100.0); Mean Platelet Volume 9.5 fL (9.4-12.4); Monocytes # 0.7 K/mcL (0.0-1.3); Neutrophils # 3.2 K/mcL (1.6-8.9); Platelet Count 271 K/mcL (140-400); Red Blood Count 3.54 M/mcL (4.19-5.50); Red Cell Distribution Width 15.5 % (11.5-14.5); Segmented Neutrophils % 63.8 %
[2020-02-29 02:12] LABS: BUN/Creatinine Ratio 9 (6-26); Blood Urea Nitrogen 7 mg/dL (6-20); Calcium 8.8 mg/dL (8.6-10.3); Carbon Dioxide 28 mEq/L (23-29); Chloride 100 mEq/L (98-107); Glucose 203 mg/dL (70-105); Osmolality,Calculated 290 (280-300); Potassium 3.6 mEq/L (3.5-5.1); Sodium 138 mEq/L (136-145); eGFR For African Americans > 60 (> 60); eGFR For Non-African Americans > 60 (> 60)
[2020-02-29] MEDS ORDERED: Insulin NPH/REG 70/30 100 UNIT/ML (x5UNIT) SQ SCH (07:30)
[2020-02-29] MEDS: Insulin LISPRO 300 UNITS/3 ML VIAL SQ SCH ×2 (08:02→11:53)
[2020-02-29 08:04] VITALS: BP 109/57
[2020-02-29] MEDS: Gabapentin 300 MG CAPSULE PO SCH (08:57)
[2020-02-29] MEDS: Insulin NPH/REG 70/30 100 UNIT/ML (x5UNIT) SQ SCH (08:57)
[2020-02-29] MEDS ORDERED: PARoxetine 20 MG TABLET PO SCH (09:00)
[2020-02-29] MEDS ORDERED: QUEtiapine Fumarate 25 MG TABLET PO SCH (09:00)
[2020-02-29] MEDS ORDERED: Dextrose Gel 15 GM/37.5 ML TUBE PO PRN ×2 (11:50)
[2020-02-29] MEDS ORDERED: D5% in Water 1,000 ML IVC PRN (11:50)
[2020-02-29] MEDS ORDERED: *HR* Dextrose 50 % in Water (Syg) 50 ML SYRINGE IVP PRN (11:50)
[2020-02-29] MEDS ORDERED: Insulin LISPRO 300 UNITS/3 ML VIAL SQ SCH ×2 (12:00→21:00)
[2020-02-29] MEDS ORDERED: QUEtiapine Fumarate 300 MG TABLET PO SCH (21:00)
== END 2020-02-29 14:57 ==
LOC: 3BNU 01:08 → EMEROOARM 01:08 → SUATTDRO 19:51 → 3BNU 20:09
PROVIDERS: ADMIT Family Medicine; ATTEND Internal Medicine

== ENCOUNTER 2020-11-15 00:38 | Inpatient (IN) ==
[2020-11-15] MEDS ORDERED: 0.9 % Sodium Chloride 1,000 ML IVC ONE ×2 (01:49→03:46)
[2020-11-15 03:06] LABS: VBG HCO3 25 mEq/L (21-27); VBG PCO2 44 mmHg (41-51); VBG PH 7.36 pH Units (7.32-7.42); VBG PO2 99 mmHg (25-50)
[2020-11-15 03:09] LABS: Basophils % 0.2 %; Hematocrit 33.1 % (37.5-50.1); Immature Granulocytes % 0.5 % (0-4); Lymphocytes # 0.9 K/mcL (0.6-4.6); Lymphocytes % 6.9 %; Mean Corpuscular HGB Conc 31.7 g/dL (31.6-35.5); Mean Corpuscular Hemoglobin 26.4 pg (28.0-33.3); Mean Corpuscular Volume 83.4 fL (83.0-100.0); Mean Platelet Volume 9.6 fL (9.4-12.4); Neutrophils # 10.9 K/mcL (1.6-8.9); Platelet Count 385 K/mcL (140-400); Red Blood Count 3.97 M/mcL (4.19-5.50); Red Cell Distribution Width 16.4 % (11.5-14.5); Segmented Neutrophils % 84.4 %; White Blood Count 12.9 K/mcL (4.3-11.1)
[2020-11-15 03:10] LABS: Hemoglobin 10.5 g/dL (12.9-16.9)
[2020-11-15 03:16] LABS: Bilirubin,Urine Negative (Negative); Blood,Urine Negative (Negative); Clarity,Urine Clear (Clear); Color,Urine Colorless (Yellow); Glucose,Urine (UA) >=1000 mg/dL (Normal); Ketones,Urine Trace mg/dL (Negative); Leukocyte Esterase,Urine Negative (Negative); Nitrite,Urine Negative (Negative); PH,Urine 6.5 pH Units (5.0-8.0); Protein,Urine 70 mg/dL (Neg-Trace); RBC,Urine 0-3 per hpf (0-3); Specific Gravity,Urine 1.017 (1.010-1.025); Urobilinogen,Urine Normal (Normal); WBC,Urine 0-3 per hpf (0-3)
[2020-11-15 03:26] LABS: BUN/Creatinine Ratio 10 (6-26); Blood Urea Nitrogen 9 mg/dL (6-20); Calcium 8.8 mg/dL (8.6-10.3); Carbon Dioxide 23 mEq/L (23-29); Chloride 93 mEq/L (98-107); Glucose 575 mg/dL (70-105); Osmolality,Calculated 289 (280-300); Potassium 4.3 mEq/L (3.5-5.1); Sodium 127 mEq/L (136-145); eGFR For African Americans > 60 (> 60); eGFR For Non-African Americans > 60 (> 60)
[2020-11-15] MEDS ORDERED: Insulin Regular, Human 100 UNIT/ML IV PRN (04:28)
[2020-11-15] MEDS ORDERED: *HR* Dextrose 50 % in Water (Vial) 50 ML VIAL IVP PRN ×2 (04:28→06:15)
[2020-11-15] MEDS ORDERED: Insulin Human Regular 100 UNIT in 0.9 % Sodium Chloride 100 ML IVC SCH (04:30)
[2020-11-15] MEDS ORDERED: Ondansetron ODT 4 MG TAB.RAPDIS SL PRN (05:12)
[2020-11-15] MEDS ORDERED: Naloxone 0.4 MG/ML INJ IVP PRN (05:12)
[2020-11-15] MEDS ORDERED: Acetaminophen 325 MG TABLET PO PRN (05:12)
[2020-11-15 05:52] LABS: Thyroid Stimulating Hormone 0.943 mcIU/mL (0.340-5.600)
[2020-11-15] MEDS ORDERED: Dextrose Gel 15 GM/37.5 ML TUBE PO PRN ×2 (06:15)
[2020-11-15] MEDS ORDERED: D5% in Water 1,000 ML IVC PRN (06:15)
[2020-11-15] MEDS: Insulin LISPRO 300 UNITS/3 ML VIAL SUBQ SCH ×5 (07:34→22:11)
[2020-11-15 13:46] LABS: BUN/Creatinine Ratio 8 (6-26); Blood Urea Nitrogen 5 mg/dL (6-20); Calcium 8.4 mg/dL (8.6-10.3); Carbon Dioxide 24 mEq/L (23-29); Chloride 99 mEq/L (98-107); Glucose 291 mg/dL (70-105); Osmolality,Calculated 280 (280-300); Potassium 3.7 mEq/L (3.5-5.1); Sodium 131 mEq/L (136-145); eGFR For African Americans > 60 (> 60); eGFR For Non-African Americans > 60 (> 60)
[2020-11-15] MEDS: QUEtiapine Fumarate 25 MG TABLET PO SCH (21:23)
[2020-11-15] MEDS: QUEtiapine Fumarate 300 MG TABLET PO SCH (21:31)
[2020-11-16 06:23] LABS: Hematocrit 33.7 % (37.5-50.1); Hemoglobin 10.8 g/dL (12.9-16.9); Mean Corpuscular Hemoglobin 26.9 pg (28.0-33.3); Mean Corpuscular Volume 83.8 fL (83.0-100.0); Mean Platelet Volume 9.2 fL (9.4-12.4); Platelet Count 350 K/mcL (140-400); Red Blood Count 4.02 M/mcL (4.19-5.50); Red Cell Distribution Width 16.5 % (11.5-14.5); White Blood Count 6.3 K/mcL (4.3-11.1)
[2020-11-16 06:43] LABS: BUN/Creatinine Ratio 9 (6-26); Blood Urea Nitrogen 6 mg/dL (6-20); Calcium 8.6 mg/dL (8.6-10.3); Carbon Dioxide 24 mEq/L (23-29); Chloride 99 mEq/L (98-107); Glucose 422 mg/dL (70-105); Magnesium 1.7 mg/dL (1.6-2.6); Osmolality,Calculated 288 (280-300); Phosphorous 3.9 mg/dL (2.7-4.5); Potassium 4.4 mEq/L (3.5-5.1); Sodium 131 mEq/L (136-145); eGFR For African Americans > 60 (> 60); eGFR For Non-African Americans > 60 (> 60)
[2020-11-16] MEDS: QUEtiapine Fumarate 25 MG TABLET PO SCH (08:15)
[2020-11-16] MEDS: Insulin LISPRO 300 UNITS/3 ML VIAL SUBQ SCH ×4 (08:15→20:09)
[2020-11-16] MEDS: PARoxetine 20 MG TABLET PO SCH (08:15)
[2020-11-16] MEDS ORDERED: Insulin DETEMIR 100 UNIT/ML X5UNITS SUBQ ONE (10:59)
[2020-11-16] MEDS ORDERED: 0.9 % Sodium Chloride 1,000 ML IVC ONE (10:59)
[2020-11-16] MEDS: QUEtiapine Fumarate 300 MG TABLET PO SCH (20:08)
[2020-11-17] MEDS ORDERED: Insulin DETEMIR 100 UNIT/ML X5UNITS SUBQ ONE (07:26)
[2020-11-17] MEDS: Insulin LISPRO 300 UNITS/3 ML VIAL SUBQ SCH ×2 (07:29→11:27)
[2020-11-17 07:31] VITALS: BP 124/74
[2020-11-17] MEDS: QUEtiapine Fumarate 25 MG TABLET PO SCH (08:11)
[2020-11-17] MEDS: PARoxetine 20 MG TABLET PO SCH (08:11)
== END 2020-11-17 14:50 | disposition home or self-care (01) | DRG 420 ==
LOC: EMEROOARM 00:38 → SUATTDRO 05:53 → CDU 05:53
PROVIDERS: ADMIT Student in an Organized Health Care Education/Training Program; ATTEND Student in an Organized Health Care Education/Training Program

== ENCOUNTER 2021-08-13 13:13 | Inpatient (IN) ==
[2021-08-13] MEDS ORDERED: Ondansetron 4 MG/2 ML VIAL IVP ONE (13:53)
[2021-08-13] MEDS ORDERED: Ketorolac 15 MG/ML VIAL IVP ONE (13:57)
[2021-08-13 14:05] LABS: Basophils # 0.1 K/mcL (0.0-0.2); Basophils % 0.4 %; Eosinophils % 0.1 %; Hematocrit 41.1 % (37.5-50.1); Hemoglobin 13.3 g/dL (12.9-16.9); Immature Granulocytes % 0.3 % (0-4); Lymphocytes # 0.5 K/mcL (0.6-4.6); Lymphocytes % 3.3 %; Mean Corpuscular HGB Conc 32.4 g/dL (31.6-35.5); Mean Corpuscular Hemoglobin 28.4 pg (28.0-33.3); Mean Corpuscular Volume 87.8 fL (83.0-100.0); Mean Platelet Volume 9.4 fL (9.4-12.4); Monocytes # 0.3 K/mcL (0.0-1.3); Monocytes % 2.5 %; Neutrophils # 12.6 K/mcL (1.6-8.9); Platelet Count 276 K/mcL (140-400); Red Blood Count 4.68 M/mcL (4.19-5.50); Red Cell Distribution Width 13.9 % (11.5-14.5); Segmented Neutrophils % 93.4 %; White Blood Count 13.5 K/mcL (4.3-11.1)
[2021-08-13 14:06] LABS: Bilirubin,Urine Negative (Negative); Blood,Urine Negative (Negative); Clarity,Urine Clear (Clear); Color,Urine Colorless (Yellow); Glucose,Urine (UA) >=1000 mg/dL (Normal); Ketones,Urine >150 mg/dL (Negative); Leukocyte Esterase,Urine Negative (Negative); Nitrite,Urine Negative (Negative); PH,Urine 5.5 pH Units (5.0-8.0); Protein,Urine Trace mg/dL (Neg-Trace); RBC,Urine 0-3 per hpf (0-3); Specific Gravity,Urine 1.023 (1.010-1.025); Squamous Epithelial Cell,Urine Few per hpf (None-Few); Urobilinogen,Urine Normal (Normal); WBC,Urine 0-3 per hpf (0-3)
[2021-08-13 14:07] LABS: VBG HCO3 14 mEq/L (21-27); VBG PCO2 29 mmHg (41-51); VBG PO2 45 mmHg (25-50)
[2021-08-13] MEDS: 0.9 % Sodium Chloride 1,000 ML IVC SCH ×2 (14:09→15:59)
[2021-08-13 15:06] LABS: BUN/Creatinine Ratio 23 (6-26); Blood Urea Nitrogen 25 mg/dL (6-20); Calcium 9.7 mg/dL (8.6-10.3); Carbon Dioxide 12 mEq/L (23-29); Chloride 91 mEq/L (98-107); Glucose 525 mg/dL (70-105); Osmolality,Calculated 298 (280-300); Phosphorous 3.8 mg/dL (2.7-4.5); Potassium 5.5 mEq/L (3.5-5.1); Sodium 130 mEq/L (136-145); Troponin I 0.03 ng/mL (< 0.04); eGFR For African Americans > 60 (> 60); eGFR For Non-African Americans > 60 (> 60)
[2021-08-13] MEDS ORDERED: Metoclopramide 10 MG/2 ML VIAL IVP ONE (18:00)
[2021-08-13 19:15] LABS: Amphetamine Screen,Urine Positive ng/mL (Cutoff=1000); Barbiturate Screen,Urine Negative ng/mL (Cutoff=200); Benzodiazepines Screen,Urine Negative ng/mL (Cutoff=200); Cannabinoid Screen,Urine Negative ng/mL (Cutoff = 50); Cocaine Screen,Urine Negative ng/mL (Cutoff= 300); Opiate Screen,Urine Negative ng/mL (Cutoff=300); Phencyclidine Screen,Urine Negative ng/mL (Cutoff=25)
[2021-08-13 19:23] LABS: Influenza A PCR Negative (Negative); Influenza B PCR Negative (Negative); Resp. Syncytial Virus PCR Negative (Negative)
[2021-08-13 19:26] LABS: SARS-CoV-2 by PCR (In House) Negative (Negative)
[2021-08-13 19:26] LABS: BUN/Creatinine Ratio 24 (6-26); Blood Urea Nitrogen 26 mg/dL (6-20); Calcium 8.8 mg/dL (8.6-10.3); Carbon Dioxide 10 mEq/L (23-29); Chloride 101 mEq/L (98-107); Glucose 411 mg/dL (70-105); Osmolality,Calculated 298 (280-300); Potassium 4.7 mEq/L (3.5-5.1); Sodium 133 mEq/L (136-145); eGFR For African Americans > 60 (> 60); eGFR For Non-African Americans > 60 (> 60)
[2021-08-13] MEDS ORDERED: Melatonin 3 MG TABLET PO PRN (22:45)
[2021-08-13] MEDS ORDERED: Ondansetron 4 MG/2 ML VIAL IVP PRN (22:45)
[2021-08-13] MEDS ORDERED: Naloxone 0.4 MG/ML INJ IVP PRN (22:45)
[2021-08-13] MEDS ORDERED: *HR* Dextrose 50 % in Water (Vial) 50 ML VIAL IVP PRN (22:47)
[2021-08-13] MEDS ORDERED: D5% in 0.45% NACL 1,000 ML IVC PRN (22:47)
[2021-08-13] MEDS ORDERED: D5% in 0.45% NACL w KCl 20 MEQ/1,000 ML MLS IVC PRN (22:47)
[2021-08-13] MEDS ORDERED: Insulin Regular, Human 100 UNIT/ML IV PRN ×2 (22:47)
[2021-08-13] MEDS: 0.45 % Sodium Chloride w/KCl 20 MEQ/1,000 ML MLS IVC PRN (23:19)
[2021-08-14 01:06] LABS: Hematocrit 37.5 % (37.5-50.1); Hemoglobin 12.6 g/dL (12.9-16.9); Mean Corpuscular HGB Conc 33.6 g/dL (31.6-35.5); Mean Corpuscular Hemoglobin 28.8 pg (28.0-33.3); Mean Corpuscular Volume 85.6 fL (83.0-100.0); Platelet Count 306 K/mcL (140-400); Red Blood Count 4.38 M/mcL (4.19-5.50); Red Cell Distribution Width 13.9 % (11.5-14.5); White Blood Count 13.8 K/mcL (4.3-11.1)
[2021-08-14 01:16] LABS: VBG HCO3 19 mEq/L (21-27); VBG PCO2 31 mmHg (41-51); VBG PO2 135 mmHg (25-50)
[2021-08-14 01:18] LABS: BUN/Creatinine Ratio 23 (6-26); Blood Urea Nitrogen 23 mg/dL (6-20); Calcium 8.8 mg/dL (8.6-10.3); Carbon Dioxide 18 mEq/L (23-29); Chloride 107 mEq/L (98-107); Glucose 153 mg/dL (70-105); Osmolality,Calculated 289 (280-300); Potassium 4.4 mEq/L (3.5-5.1); Sodium 136 mEq/L (136-145); eGFR For African Americans > 60 (> 60); eGFR For Non-African Americans > 60 (> 60)
[2021-08-14] MEDS: 0.45 % Sodium Chloride w/KCl 20 MEQ/1,000 ML MLS IVC PRN (02:21)
[2021-08-14 02:42] LABS: Estimated Average Glucose 206 mg/dl; Hemoglobin A1C 8.8 %
[2021-08-14 05:23] LABS: VBG HCO3 22 mEq/L (21-27); VBG PCO2 37 mmHg (41-51); VBG PH 7.38 pH Units (7.32-7.42); VBG PO2 201 mmHg (25-50)
[2021-08-14 05:29] LABS: BUN/Creatinine Ratio 22 (6-26); Blood Urea Nitrogen 20 mg/dL (6-20); Calcium 8.7 mg/dL (8.6-10.3); Carbon Dioxide 21 mEq/L (23-29); Chloride 109 mEq/L (98-107); Glucose 56 mg/dL (70-105); Osmolality,Calculated 284 (280-300); Potassium 4.2 mEq/L (3.5-5.1); Sodium 137 mEq/L (136-145); eGFR For African Americans > 60 (> 60); eGFR For Non-African Americans > 60 (> 60)
[2021-08-14 08:54] LABS: BUN/Creatinine Ratio 19 (6-26); Blood Urea Nitrogen 16 mg/dL (6-20); Calcium 8.6 mg/dL (8.6-10.3); Carbon Dioxide 16 mEq/L (23-29); Chloride 107 mEq/L (98-107); Glucose 163 mg/dL (70-105); Osmolality,Calculated 283 (280-300); Sodium 134 mEq/L (136-145); eGFR For African Americans > 60 (> 60); eGFR For Non-African Americans > 60 (> 60)
[2021-08-14] MEDS ORDERED: *HR* Dextrose 50 % in Water (Vial) 50 ML VIAL IVP PRN (08:56)
[2021-08-14] MEDS ORDERED: D5% in Water 1,000 ML IVC PRN (08:56)
[2021-08-14] MEDS ORDERED: Dextrose Gel 15 GM/37.5 ML TUBE PO PRN ×2 (08:56)
[2021-08-14] MEDS ORDERED: D5% in 0.45% NACL 1,000 ML IVC PRN (08:56)
[2021-08-14] MEDS: Insulin LISPRO 300 UNITS/3 ML VIAL SUBQ SCH ×4 (10:32→20:12)
[2021-08-14 12:34] LABS: Estimated Average Glucose 206 mg/dl; Hemoglobin A1C 8.8 %
[2021-08-14] MEDS: Insulin NPH/REG 70/30 100 UNIT/ML (x5UNIT) SUBQ SCH ×2 (13:40→17:30)
[2021-08-14] MEDS ORDERED: Ibuprofen 400 MG TABLET PO PRN (17:41)
[2021-08-14] MEDS ORDERED: hydrOXYzine pamoate 25 MG CAPSULE PO PRN (17:42)
[2021-08-14] MEDS: Gabapentin 300 MG CAPSULE PO SCH (20:15)
[2021-08-14] MEDS: QUEtiapine Fumarate 300 MG TABLET PO SCH (21:00)
[2021-08-15 06:51] LABS: Basophils % 0.4 %; Eosinophils # 0.1 K/mcL (0.0-0.6); Eosinophils % 0.7 %; Hematocrit 33.9 % (37.5-50.1); Hemoglobin 11.5 g/dL (12.9-16.9); Immature Granulocytes % 0.3 % (0-4); Lymphocytes # 1.1 K/mcL (0.6-4.6); Lymphocytes % 16.4 %; Mean Corpuscular HGB Conc 33.9 g/dL (31.6-35.5); Mean Corpuscular Hemoglobin 28.8 pg (28.0-33.3); Mean Platelet Volume 9.3 fL (9.4-12.4); Monocytes # 0.5 K/mcL (0.0-1.3); Monocytes % 7.8 %; Platelet Count 213 K/mcL (140-400); Red Blood Count 3.99 M/mcL (4.19-5.50); Red Cell Distribution Width 13.6 % (11.5-14.5); Segmented Neutrophils % 74.4 %
[2021-08-15 06:54] LABS: Neutrophils # 5.1 K/mcL (1.6-8.9); White Blood Count 6.8 K/mcL (4.3-11.1)
[2021-08-15 07:09] LABS: BUN/Creatinine Ratio 16 (6-26); Blood Urea Nitrogen 12 mg/dL (6-20); Calcium 8.4 mg/dL (8.6-10.3); Carbon Dioxide 22 mEq/L (23-29); Chloride 99 mEq/L (98-107); Glucose 341 mg/dL (70-105); Osmolality,Calculated 283 (280-300); Sodium 130 mEq/L (136-145); eGFR For African Americans > 60 (> 60); eGFR For Non-African Americans > 60 (> 60)
[2021-08-15] MEDS ORDERED: Insulin NPH/REG 70/30 100 UNIT/ML (x5UNIT) SUBQ SCH (08:15)
[2021-08-15] MEDS: Gabapentin 300 MG CAPSULE PO SCH ×3 (08:56→20:20)
[2021-08-15] MEDS: ATOMOXETINE HCL 25 MG PO SCH (08:57)
[2021-08-15] MEDS: Insulin LISPRO 300 UNITS/3 ML VIAL SUBQ SCH ×4 (08:58→20:13)
[2021-08-15] MEDS: Insulin NPH/REG 70/30 100 UNIT/ML (x5UNIT) SUBQ SCH ×2 (10:08→18:57)
[2021-08-15] MEDS: QUEtiapine Fumarate 300 MG TABLET PO SCH (23:27)
[2021-08-16 02:53] LABS: Basophils % 0.6 %; Eosinophils # 0.1 K/mcL (0.0-0.6); Eosinophils % 1.3 %; Hematocrit 34.9 % (37.5-50.1); Hemoglobin 11.7 g/dL (12.9-16.9); Immature Granulocytes % 0.4 % (0-4); Lymphocytes # 1.5 K/mcL (0.6-4.6); Lymphocytes % 27.2 %; Mean Corpuscular HGB Conc 33.5 g/dL (31.6-35.5); Mean Corpuscular Hemoglobin 28.6 pg (28.0-33.3); Mean Corpuscular Volume 85.3 fL (83.0-100.0); Mean Platelet Volume 9.4 fL (9.4-12.4); Monocytes # 0.4 K/mcL (0.0-1.3); Monocytes % 7.6 %; Neutrophils # 3.4 K/mcL (1.6-8.9); Platelet Count 219 K/mcL (140-400); Red Blood Count 4.09 M/mcL (4.19-5.50); Red Cell Distribution Width 13.5 % (11.5-14.5); Segmented Neutrophils % 62.9 %; White Blood Count 5.4 K/mcL (4.3-11.1)
[2021-08-16 03:08] LABS: BUN/Creatinine Ratio 24 (6-26); Blood Urea Nitrogen 16 mg/dL (6-20); Calcium 8.7 mg/dL (8.6-10.3); Carbon Dioxide 25 mEq/L (23-29); Chloride 99 mEq/L (98-107); Glucose 308 mg/dL (70-105); Osmolality,Calculated 287 (280-300); Potassium 4.3 mEq/L (3.5-5.1); Sodium 132 mEq/L (136-145); eGFR For African Americans > 60 (> 60); eGFR For Non-African Americans > 60 (> 60)
[2021-08-16] MEDS ORDERED: Insulin NPH/REG 70/30 100 UNIT/ML (x5UNIT) SUBQ SCH ×2 (09:00→16:30)
[2021-08-16] MEDS: Gabapentin 300 MG CAPSULE PO SCH (09:47)
[2021-08-16] MEDS: Insulin LISPRO 300 UNITS/3 ML VIAL SUBQ SCH ×2 (09:47→12:51)
[2021-08-16] MEDS: ATOMOXETINE HCL 25 MG PO SCH (10:42)
[2021-08-16] MEDS: Insulin NPH/REG 70/30 100 UNIT/ML (x5UNIT) SUBQ SCH (10:47)
[2021-08-16 14:59] VITALS: BP 138/81; PULSE 94; TEMP 97.9; O2SAT 98
== END 2021-08-16 20:00 | disposition home or self-care (01) | DRG 420 ==
LOC: EMEROOARM 13:13 → 3NENU 22:30 → SUATTDRO 22:30 → 3NENU 23:45 → 3BNU 08-14 08:57
PROVIDERS: ADMIT Family Medicine; ATTEND Internal Medicine

== ENCOUNTER 2021-09-01 17:39 | Inpatient (IN) ==
[2021-09-01 18:46] LABS: Basophils % 0.2 %; Eosinophils % 0.4 %; Hemoglobin 11.4 g/dL (12.9-16.9); Immature Granulocytes % 0.4 % (0-4); Lymphocytes % 10.4 %; Mean Corpuscular HGB Conc 32.6 g/dL (31.6-35.5); Mean Corpuscular Hemoglobin 28.3 pg (28.0-33.3); Mean Corpuscular Volume 86.8 fL (83.0-100.0); Mean Platelet Volume 8.8 fL (9.4-12.4); Monocytes # 0.5 K/mcL (0.0-1.3); Monocytes % 5.9 %; Neutrophils # 7.6 K/mcL (1.6-8.9); Platelet Count 283 K/mcL (140-400); Red Blood Count 4.03 M/mcL (4.19-5.50); Segmented Neutrophils % 82.7 %; White Blood Count 9.2 K/mcL (4.3-11.1)
[2021-09-01 19:03] LABS: Bilirubin,Urine Negative (Negative); Blood,Urine Negative (Negative); Clarity,Urine Clear (Clear); Color,Urine Colorless (Yellow); Glucose,Urine (UA) >=1000 mg/dL (Normal); Ketones,Urine 60 mg/dL (Negative); Leukocyte Esterase,Urine Negative (Negative); Mucus,Urine Few per lpf (None-Few); Nitrite,Urine Negative (Negative); Protein,Urine Negative (Neg-Trace); RBC,Urine 0-3 per hpf (0-3); Specific Gravity,Urine 1.014 (1.010-1.025); Urobilinogen,Urine Normal (Normal); WBC,Urine 0-3 per hpf (0-3)
[2021-09-01 19:11] LABS: Alanine Aminotransferase 31 Units/L (7-52); Albumin 3.7 g/dL (3.5-5.7); Albumin/Globulin Ratio 1.6 (1.1-2.2); Alkaline Phosphatase 86 Units/L (34-104); Amphetamine Screen,Urine Positive ng/mL (Cutoff=1000); Aspartate Amino Transferase 41 Units/L (13-39); BUN/Creatinine Ratio 17 (6-26); Barbiturate Screen,Urine Negative ng/mL (Cutoff=200); Benzodiazepines Screen,Urine Negative ng/mL (Cutoff=200); Bilirubin,Direct 0.2 mg/dL (0.0-0.2); Bilirubin,Indirect 0.7 mg/dL (0.0-1.0); Bilirubin,Total 0.9 mg/dL (0.3-1.0); Blood Urea Nitrogen 14 mg/dL (6-20); Calcium 8.4 mg/dL (8.6-10.3); Cannabinoid Screen,Urine Negative ng/mL (Cutoff = 50); Carbon Dioxide 16 mEq/L (23-29); Chloride 93 mEq/L (98-107); Cocaine Screen,Urine Negative ng/mL (Cutoff= 300); Ethanol < 10 mg/dL (Less than 10); Globulin 2.3 g/dL (2.4-3.5); Glucose 468 mg/dL (70-105); Opiate Screen,Urine Negative ng/mL (Cutoff=300); Osmolality,Calculated 283 (280-300); Phencyclidine Screen,Urine Negative ng/mL (Cutoff=25); Potassium 4.1 mEq/L (3.5-5.1); Sodium 126 mEq/L (136-145); eGFR For African Americans > 60 (> 60); eGFR For Non-African Americans > 60 (> 60)
[2021-09-01] MEDS ORDERED: *HR* Dextrose 50 % in Water (Syg) 50 ML SYRINGE IVP PRN (19:30)
[2021-09-01] MEDS ORDERED: Naloxone 0.4 MG/ML INJ IVP PRN (21:42)
[2021-09-01] MEDS ORDERED: Ondansetron 4 MG/2 ML VIAL IVP PRN (21:42)
[2021-09-01] MEDS ORDERED: Acetaminophen 325 MG TABLET PO PRN (21:42)
[2021-09-01] MEDS: 0.9 % Sodium Chloride 1,000 ML IVC SCH ×2 (21:43→22:37)
[2021-09-01] MEDS: 0.45 % Sodium Chloride w/KCl 20 MEQ/1,000 ML MLS IVC SCH (23:21)
[2021-09-01] MEDS ORDERED: D5% in 0.45% NACL w KCl 20 MEQ/1,000 ML MLS IVC PRN (23:26)
[2021-09-01] MEDS ORDERED: D5% in 0.45% NACL 1,000 ML IVC PRN (23:26)
[2021-09-02 00:40] LABS: VBG HCO3 20 mEq/L (21-27); VBG PCO2 30 mmHg (41-51); VBG PH 7.44 pH Units (7.32-7.42); VBG PO2 92 mmHg (25-50)
[2021-09-02 00:47] LABS: Basophils % 0.5 %; Eosinophils % 0.5 %; Hematocrit 31.8 % (37.5-50.1); Hemoglobin 10.7 g/dL (12.9-16.9); Immature Granulocytes % 0.3 % (0-4); Lymphocytes # 1.3 K/mcL (0.6-4.6); Lymphocytes % 22.4 %; Mean Corpuscular HGB Conc 33.6 g/dL (31.6-35.5); Mean Corpuscular Volume 86.2 fL (83.0-100.0); Mean Platelet Volume 8.6 fL (9.4-12.4); Monocytes # 0.3 K/mcL (0.0-1.3); Monocytes % 5.8 %; Neutrophils # 4.1 K/mcL (1.6-8.9); Platelet Count 253 K/mcL (140-400); Red Blood Count 3.69 M/mcL (4.19-5.50); Red Cell Distribution Width 13.8 % (11.5-14.5); Segmented Neutrophils % 70.5 %; White Blood Count 5.8 K/mcL (4.3-11.1)
[2021-09-02 00:57] LABS: BUN/Creatinine Ratio 17 (6-26); Blood Urea Nitrogen 13 mg/dL (6-20); Calcium 7.9 mg/dL (8.6-10.3); Carbon Dioxide 20 mEq/L (23-29); Chloride 104 mEq/L (98-107); Glucose 281 mg/dL (70-105); Osmolality,Calculated 284 (280-300); Potassium 3.8 mEq/L (3.5-5.1); Sodium 132 mEq/L (136-145); eGFR For African Americans > 60 (> 60); eGFR For Non-African Americans > 60 (> 60)
[2021-09-02 00:59] LABS: BUN/Creatinine Ratio 17 (6-26); Blood Urea Nitrogen 13 mg/dL (6-20); Calcium 7.9 mg/dL (8.6-10.3); Carbon Dioxide 20 mEq/L (23-29); Chloride 105 mEq/L (98-107); Glucose 281 mg/dL (70-105); Magnesium 1.6 mg/dL (1.6-2.6); Osmolality,Calculated 284 (280-300); Potassium 3.8 mEq/L (3.5-5.1); Sodium 132 mEq/L (136-145); eGFR For African Americans > 60 (> 60); eGFR For Non-African Americans > 60 (> 60)
[2021-09-02 01:12] LABS: Thyroid Stimulating Hormone 1.259 mcIU/mL (0.340-5.600)
[2021-09-02] MEDS ORDERED: Melatonin 3 MG TABLET PO ONE (01:15)
[2021-09-02] MEDS ORDERED: Insulin NPH/REG 70/30 100 UNIT/ML (x5UNIT) SUBQ ONE (02:29)
[2021-09-02] MEDS ORDERED: Insulin NPH/REG 70/30 100 UNIT/ML (x5UNIT) SUBQ SCH (07:30)
[2021-09-02] MEDS: *HR* Enoxaparin 30 MG/0.3 ML SYRINGE SQ SCH ×2 (07:36→08:36)
[2021-09-02 10:38] LABS: BUN/Creatinine Ratio 12 (6-26); Blood Urea Nitrogen 8 mg/dL (6-20); Calcium 8.1 mg/dL (8.6-10.3); Carbon Dioxide 25 mEq/L (23-29); Chloride 103 mEq/L (98-107); Glucose 275 mg/dL (70-105); Osmolality,Calculated 288 (280-300); Sodium 135 mEq/L (136-145); eGFR For African Americans > 60 (> 60); eGFR For Non-African Americans > 60 (> 60)
[2021-09-02] MEDS ORDERED: *HR* Dextrose 50 % in Water (Syg) 50 ML SYRINGE IVP PRN (12:59)
[2021-09-02] MEDS ORDERED: Dextrose Gel 15 GM/37.5 ML TUBE PO PRN ×2 (12:59)
[2021-09-02] MEDS ORDERED: D5% in Water 1,000 ML IVC PRN (12:59)
[2021-09-02] MEDS: 0.45 % Sodium Chloride w/KCl 20 MEQ/1,000 ML MLS IVC SCH ×2 (13:19→13:20)
[2021-09-02] MEDS: Gabapentin 300 MG CAPSULE PO SCH ×2 (13:37→20:34)
[2021-09-02] MEDS ORDERED: Insulin LISPRO 300 UNITS/3 ML VIAL SUBQ ONE (13:55)
[2021-09-02] MEDS: *HR* LORazepam 2 MG/ML VIAL IVP PRN (15:08)
[2021-09-02] MEDS: Insulin NPH/REG 70/30 100 UNIT/ML (x5UNIT) SUBQ SCH (16:46)
[2021-09-02] MEDS: Insulin LISPRO 300 UNITS/3 ML VIAL SUBQ SCH ×2 (16:46→18:29)
[2021-09-02] MEDS: QUEtiapine Fumarate 300 MG TABLET PO SCH (20:34)
[2021-09-02] MEDS ORDERED: Insulin LISPRO 300 UNITS/3 ML VIAL SUBQ SCH (21:00)
[2021-09-03] MEDS: Gabapentin 300 MG CAPSULE PO SCH ×3 (09:20→22:11)
[2021-09-03] MEDS: Insulin LISPRO 300 UNITS/3 ML VIAL SUBQ SCH ×5 (09:20→17:08)
[2021-09-03] MEDS: *HR* Enoxaparin 30 MG/0.3 ML SYRINGE SQ SCH (09:21)
[2021-09-03] MEDS: Insulin NPH/REG 70/30 100 UNIT/ML (x5UNIT) SUBQ SCH ×2 (09:21→17:08)
[2021-09-03] MEDS: Atomoxetine Hcl [Strattera] 25 MG Capsule PO SCH (09:29)
[2021-09-03 11:20] VITALS: BP 131/72; PULSE 96; TEMP 98.3; O2SAT 98
[2021-09-03] MEDS ORDERED: amLODIPine 5 MG TABLET PO PRN (12:05)
[2021-09-03] MEDS ORDERED: Haloperidol Lactate 5 MG/ML VIAL IVP PRN (17:12)
[2021-09-03] MEDS ORDERED: Insulin LISPRO 300 UNITS/3 ML VIAL SUBQ SCH (21:00)
[2021-09-03] MEDS: QUEtiapine Fumarate 300 MG TABLET PO SCH (22:11)
[2021-09-03] MEDS: *HR* LORazepam 2 MG/ML VIAL IVP PRN (22:12)
[2021-09-04] MEDS: Gabapentin 300 MG CAPSULE PO SCH (11:09)
[2021-09-04] MEDS: *HR* Enoxaparin 30 MG/0.3 ML SYRINGE SQ SCH (11:10)
[2021-09-04] MEDS: Insulin NPH/REG 70/30 100 UNIT/ML (x5UNIT) SUBQ SCH (11:11)
[2021-09-04] MEDS: *HR* LORazepam 2 MG/ML VIAL IVP PRN (11:25)
[2021-09-04] MEDS: Insulin LISPRO 300 UNITS/3 ML VIAL SUBQ SCH (12:46)
[2021-09-04] MEDS: Atomoxetine Hcl [Strattera] 25 MG Capsule PO SCH (12:47)
== END 2021-09-04 17:27 | disposition home or self-care (01) | DRG 420 ==
LOC: EMEROOARM 17:39 → 2NNU 17:39 → OBSVTOIN 22:14 → 2NNU 23:01 → 3BNU 09-02 13:05 → UNDODISIN 09-04 14:55
PROVIDERS: ADMIT Internal Medicine; ATTEND Internal Medicine

== ENCOUNTER 2021-09-07 11:43 | Observation (INO) ==
[2021-09-07] MEDS ORDERED: 0.9 % Sodium Chloride 1,000 ML IVC ONE ×3 (11:49→15:46)
[2021-09-07] MEDS ORDERED: Ondansetron 4 MG/2 ML VIAL IVP ONE (12:04)
[2021-09-07 12:10] LABS: VBG HCO3 21 mEq/L (21-27); VBG PCO2 32 mmHg (41-51); VBG PH 7.41 pH Units (7.32-7.42); VBG PO2 55 mmHg (25-50)
[2021-09-07 12:14] LABS: Basophils % 0.4 %; Eosinophils % 0.4 %; Hematocrit 33.1 % (37.5-50.1); Immature Granulocytes % 0.4 % (0-4); Lymphocytes # 0.7 K/mcL (0.6-4.6); Lymphocytes % 10.6 %; Mean Corpuscular HGB Conc 33.2 g/dL (31.6-35.5); Mean Corpuscular Hemoglobin 29.3 pg (28.0-33.3); Mean Corpuscular Volume 88.3 fL (83.0-100.0); Mean Platelet Volume 9.6 fL (9.4-12.4); Monocytes # 0.4 K/mcL (0.0-1.3); Monocytes % 5.9 %; Neutrophils # 5.7 K/mcL (1.6-8.9); Platelet Count 280 K/mcL (140-400); Red Blood Count 3.75 M/mcL (4.19-5.50); Red Cell Distribution Width 14.1 % (11.5-14.5); Segmented Neutrophils % 82.3 %
[2021-09-07 12:34] LABS: BUN/Creatinine Ratio 22 (6-26); Blood Urea Nitrogen 19 mg/dL (6-20); Calcium 8.6 mg/dL (8.6-10.3); Carbon Dioxide 21 mEq/L (23-29); Chloride 88 mEq/L (98-107); Glucose 790 mg/dL (70-105); Osmolality,Calculated 295 (280-300); Potassium 4.5 mEq/L (3.5-5.1); Sodium 122 mEq/L (136-145); eGFR For African Americans > 60 (> 60); eGFR For Non-African Americans > 60 (> 60)
[2021-09-07 12:38] LABS: Bilirubin,Urine Negative (Negative); Blood,Urine Negative (Negative); Clarity,Urine Clear (Clear); Color,Urine Colorless (Yellow); Glucose,Urine (UA) >=1000 mg/dL (Normal); Ketones,Urine 40 mg/dL (Negative); Leukocyte Esterase,Urine Negative (Negative); Nitrite,Urine Negative (Negative); PH,Urine 6.5 pH Units (5.0-8.0); Protein,Urine Negative (Neg-Trace); RBC,Urine 0-3 per hpf (0-3); Specific Gravity,Urine 1.028 (1.010-1.025); Urobilinogen,Urine Normal (Normal); WBC,Urine 0-3 per hpf (0-3)
[2021-09-07] MEDS ORDERED: Insulin Human Regular 10 UNIT in 0.9 % Sodium Chloride 10 ML IV ONE (13:05)
[2021-09-07 14:12] LABS: Adenovirus Not Detected (Not Detect); Bordetella Pertussis Not Detected (Not Detect); Chlamydophila pneumoniae Not Detected (Not Detect); Coronavirus 229E Not Detected (Not Detect); Coronavirus HKU1 Not Detected (Not Detect); Coronavirus NL63 Not Detected (Not Detect); Coronavirus OC43 Not Detected (Not Detect); Human Metapneumovirus Not Detected (Not Detect); Human Rhinovirus/Enterovirus Not Detected (Not Detect); Influenza A Subtype 2009 H1 Not Detected (Not Detect); Influenza B Not Detected (Not Detect); Mycoplasma pneumoniae Not Detected (Not Detect); Parainfluenza Virus 1 Not Detected (Not Detect); Parainfluenza Virus 2 Not Detected (Not Detect); Parainfluenza Virus 3 Not Detected (Not Detect); Parainfluenza Virus 4 Not Detected (Not Detect); Respiratory Syncytial Virus Not Detected (Not Detect); SARS-CoV-2 Not Detected (Not Detect)
[2021-09-07 15:55] LABS: Estimated Average Glucose 237 mg/dl; Hemoglobin A1C 9.9 %
[2021-09-07] MEDS ORDERED: Ondansetron 4 MG/2 ML VIAL IVP PRN (16:24)
[2021-09-07] MEDS ORDERED: Naloxone 0.4 MG/ML INJ IVP PRN (16:24)
[2021-09-07] MEDS ORDERED: *HR* Dextrose 50 % in Water (Syg) 50 ML SYRINGE IVP PRN (16:27)
[2021-09-07] MEDS ORDERED: Dextrose Gel 15 GM/37.5 ML TUBE PO PRN ×2 (16:27)
[2021-09-07] MEDS ORDERED: D5% in Water 1,000 ML IVC PRN (16:27)
[2021-09-07 16:43] LABS: Amphetamine Screen,Urine Positive ng/mL (Cutoff=1000); Barbiturate Screen,Urine Negative ng/mL (Cutoff=200); Benzodiazepines Screen,Urine Negative ng/mL (Cutoff=200); Cannabinoid Screen,Urine Negative ng/mL (Cutoff = 50); Cocaine Screen,Urine Negative ng/mL (Cutoff= 300); Opiate Screen,Urine Negative ng/mL (Cutoff=300); Phencyclidine Screen,Urine Negative ng/mL (Cutoff=25)
[2021-09-07 17:45] LABS: Acetaminophen < 10 mcg/mL (10-20); Chol/HDL Ratio 2.7 (0-4.9); Cholesterol 165 mg/dL (< 200); Ethanol < 10 mg/dL (Less than 10); HDL Cholesterol 62 mg/dL (40-59); LDL Cholesterol,Calculated 75 mg/dL (< 100); Salicylate < 2.5 mg/dL (15.0-30.0); Triglycerides 142 mg/dL (< 150)
[2021-09-07 18:06] LABS: BUN/Creatinine Ratio 21 (6-26); Blood Urea Nitrogen 15 mg/dL (6-20); Calcium 8.4 mg/dL (8.6-10.3); Carbon Dioxide 24 mEq/L (23-29); Chloride 97 mEq/L (98-107); Glucose 424 mg/dL (70-105); Osmolality,Calculated 289 (280-300); Sodium 130 mEq/L (136-145); eGFR For African Americans > 60 (> 60); eGFR For Non-African Americans > 60 (> 60)
[2021-09-07] MEDS: 0.9 % Sodium Chloride 1,000 ML IVC SCH (19:41)
[2021-09-07] MEDS: QUEtiapine Fumarate 300 MG TABLET PO SCH (19:41)
[2021-09-07] MEDS: Insulin DETEMIR 100 UNIT/ML X5UNITS SUBQ SCH (19:43)
[2021-09-07] MEDS: Insulin LISPRO 300 UNITS/3 ML VIAL SUBQ SCH ×2 (19:43)
[2021-09-08] MEDS: 0.9 % Sodium Chloride 1,000 ML IVC SCH ×4 (05:02→22:41)
[2021-09-08] MEDS: BuPROPion XL (24 HR) 150 MG TABLET PO SCH (08:03)
[2021-09-08] MEDS: Insulin LISPRO 300 UNITS/3 ML VIAL SUBQ SCH ×5 (08:03→22:41)
[2021-09-08] MEDS: ATOMOXETINE HCL 25 MG PO SCH (08:04)
[2021-09-08] MEDS: Insulin DETEMIR 100 UNIT/ML X5UNITS SUBQ SCH (08:06)
[2021-09-08] MEDS: Insulin NPH/REG 70/30 100 UNIT/ML (x5UNIT) SUBQ SCH (10:41)
[2021-09-08 12:00] LABS: Basophils % 0.5 %; Eosinophils % 0.2 %; Hemoglobin 11.7 g/dL (12.9-16.9); Immature Granulocytes % 0.3 % (0-4); Lymphocytes # 1.1 K/mcL (0.6-4.6); Lymphocytes % 17.7 %; Mean Corpuscular HGB Conc 32.5 g/dL (31.6-35.5); Mean Corpuscular Hemoglobin 28.5 pg (28.0-33.3); Mean Corpuscular Volume 87.6 fL (83.0-100.0); Mean Platelet Volume 9.4 fL (9.4-12.4); Monocytes # 0.4 K/mcL (0.0-1.3); Monocytes % 6.6 %; Neutrophils # 4.5 K/mcL (1.6-8.9); Platelet Count 277 K/mcL (140-400); Red Blood Count 4.11 M/mcL (4.19-5.50); Red Cell Distribution Width 14.4 % (11.5-14.5); Segmented Neutrophils % 74.7 %
[2021-09-08 12:28] LABS: BUN/Creatinine Ratio 20 (6-26); Blood Urea Nitrogen 14 mg/dL (6-20); Calcium 8.4 mg/dL (8.6-10.3); Carbon Dioxide 23 mEq/L (23-29); Chloride 100 mEq/L (98-107); Glucose 387 mg/dL (70-105); Magnesium 1.7 mg/dL (1.6-2.6); Osmolality,Calculated 287 (280-300); Phosphorous 1.6 mg/dL (2.7-4.5); Potassium 4.2 mEq/L (3.5-5.1); Sodium 130 mEq/L (136-145); eGFR For African Americans > 60 (> 60); eGFR For Non-African Americans > 60 (> 60)
[2021-09-08] MEDS ORDERED: Insulin NPH/REG 70/30 100 UNIT/ML (x5UNIT) SUBQ SCH (16:30)
[2021-09-08] MEDS: Gabapentin 300 MG CAPSULE PO SCH (19:57)
[2021-09-09] MEDS: Insulin LISPRO 300 UNITS/3 ML VIAL SUBQ SCH ×3 (00:09→09:05)
[2021-09-09] MEDS: QUEtiapine Fumarate 300 MG TABLET PO SCH (00:14)
[2021-09-09 06:44] VITALS: BP 148/85; PULSE 95; TEMP 98.3; O2SAT 97
[2021-09-09] MEDS: 0.9 % Sodium Chloride 1,000 ML IVC SCH (08:50)
[2021-09-09] MEDS: Insulin NPH/REG 70/30 100 UNIT/ML (x5UNIT) SUBQ SCH (09:05)
[2021-09-09] MEDS: Gabapentin 300 MG CAPSULE PO SCH (09:05)
[2021-09-09] MEDS: ATOMOXETINE HCL 25 MG PO SCH (09:06)
[2021-09-09] MEDS: BuPROPion XL (24 HR) 150 MG TABLET PO SCH (09:06)
== END 2021-09-09 12:53 | disposition home or self-care (01) ==
LOC: EMEROOARM 11:43 → 3BNU 11:43 → SUATTDRO 18:21 → 3BNU 18:44
PROVIDERS: ADMIT Family Medicine; ATTEND Internal Medicine

== ENCOUNTER 2021-09-11 13:56 | Observation (INO) ==
[2021-09-11] MEDS: 0.9 % Sodium Chloride 1,000 ML IVC SCH ×2 (15:24→16:37)
[2021-09-11 15:36] LABS: VBG HCO3 22 mEq/L (21-27); VBG PCO2 23 mmHg (41-51); VBG PH 7.58 pH Units (7.32-7.42); VBG PO2 43 mmHg (25-50)
[2021-09-11 15:39] LABS: Basophils % 0.2 %; Eosinophils % 0.5 %; Hematocrit 32.8 % (37.5-50.1); Hemoglobin 11.3 g/dL (12.9-16.9); Immature Granulocytes % 0.3 % (0-4); Lymphocytes # 1.5 K/mcL (0.6-4.6); Lymphocytes % 22.7 %; Mean Corpuscular HGB Conc 34.5 g/dL (31.6-35.5); Mean Corpuscular Hemoglobin 28.7 pg (28.0-33.3); Mean Corpuscular Volume 83.2 fL (83.0-100.0); Mean Platelet Volume 9.3 fL (9.4-12.4); Monocytes # 0.6 K/mcL (0.0-1.3); Monocytes % 8.6 %; Neutrophils # 4.5 K/mcL (1.6-8.9); Platelet Count 259 K/mcL (140-400); Red Blood Count 3.94 M/mcL (4.19-5.50); Red Cell Distribution Width 13.8 % (11.5-14.5); Segmented Neutrophils % 67.7 %; White Blood Count 6.7 K/mcL (4.3-11.1)
[2021-09-11 15:41] LABS: Bilirubin,Urine Negative (Negative); Blood,Urine Negative (Negative); Clarity,Urine Clear (Clear); Color,Urine Colorless (Yellow); Glucose,Urine (UA) >=1000 mg/dL (Normal); Ketones,Urine 10 mg/dL (Negative); Leukocyte Esterase,Urine Negative (Negative); Nitrite,Urine Negative (Negative); Protein,Urine Negative (Neg-Trace); RBC,Urine 0-3 per hpf (0-3); Specific Gravity,Urine 1.006 (1.010-1.025); Urobilinogen,Urine Normal (Normal); WBC,Urine 0-3 per hpf (0-3)
[2021-09-11 15:47] LABS: Amphetamine Screen,Urine Positive ng/mL (Cutoff=1000); Barbiturate Screen,Urine Negative ng/mL (Cutoff=200); Benzodiazepines Screen,Urine Negative ng/mL (Cutoff=200); Cannabinoid Screen,Urine Negative ng/mL (Cutoff = 50); Cocaine Screen,Urine Negative ng/mL (Cutoff= 300); Opiate Screen,Urine Negative ng/mL (Cutoff=300); Phencyclidine Screen,Urine Negative ng/mL (Cutoff=25)
[2021-09-11 15:49] LABS: Acetaminophen < 10 mcg/mL (10-20); Alanine Aminotransferase 40 Units/L (7-52); Albumin 3.8 g/dL (3.5-5.7); Albumin/Globulin Ratio 1.5 (1.1-2.2); Alkaline Phosphatase 86 Units/L (34-104); Aspartate Amino Transferase 47 Units/L (13-39); BUN/Creatinine Ratio 14 (6-26); Bilirubin,Total 0.8 mg/dL (0.3-1.0); Blood Urea Nitrogen 10 mg/dL (6-20); Carbon Dioxide 23 mEq/L (23-29); Chloride 90 mEq/L (98-107); Ethanol < 10 mg/dL (Less than 10); Globulin 2.5 g/dL (2.4-3.5); Glucose 369 mg/dL (70-105); Osmolality,Calculated 276 (280-300); Potassium 3.7 mEq/L (3.5-5.1); Salicylate < 2.5 mg/dL (15.0-30.0); Sodium 126 mEq/L (136-145); Total Protein 6.3 g/dL (6.4-8.9); eGFR For African Americans > 60 (> 60); eGFR For Non-African Americans > 60 (> 60)
[2021-09-11] MEDS ORDERED: Insulin Human Regular 10 UNIT in 0.9 % Sodium Chloride 10 ML SUBQ ONE (19:41)
[2021-09-11] MEDS ORDERED: Naloxone 0.4 MG/ML INJ IVP PRN (19:49)
[2021-09-11] MEDS ORDERED: Ondansetron 4 MG/2 ML VIAL IVP PRN (19:49)
[2021-09-11] MEDS ORDERED: Acetaminophen 325 MG TABLET PO PRN (19:49)
[2021-09-11] MEDS ORDERED: *HR* Promethazine 25 MG/ML VIAL IM PRN (19:49)
[2021-09-11] MEDS ORDERED: Melatonin 3 MG TABLET PO PRN (19:49)
[2021-09-11] MEDS ORDERED: *HR* Dextrose 50 % in Water (Syg) 50 ML SYRINGE IVP PRN (19:52)
[2021-09-11] MEDS ORDERED: D5% in Water 1,000 ML IVC PRN (19:52)
[2021-09-11] MEDS ORDERED: Dextrose Gel 15 GM/37.5 ML TUBE PO PRN ×2 (19:52)
[2021-09-11] MEDS ORDERED: Insulin LISPRO 300 UNITS/3 ML VIAL SUBQ ONE (19:52)
[2021-09-11] MEDS ORDERED: *HR* Labetalol 20 MG/4 ML SYRINGE IVP PRN (19:58)
[2021-09-11 20:30] LABS: BUN/Creatinine Ratio 14 (6-26); Blood Urea Nitrogen 8 mg/dL (6-20); Calcium 8.4 mg/dL (8.6-10.3); Carbon Dioxide 23 mEq/L (23-29); Chloride 99 mEq/L (98-107); Glucose 293 mg/dL (70-105); Osmolality,Calculated 283 (280-300); Potassium 3.7 mEq/L (3.5-5.1); Sodium 132 mEq/L (136-145); eGFR For African Americans > 60 (> 60); eGFR For Non-African Americans > 60 (> 60)
[2021-09-11] MEDS ORDERED: Insulin DETEMIR 100 UNIT/ML X5UNITS SUBQ SCH (21:00)
[2021-09-11] MEDS: Ringers Solution, Lactated 1,000 ML IVC SCH (22:14)
[2021-09-12] MEDS: Insulin LISPRO 300 UNITS/3 ML VIAL SUBQ SCH ×5 (01:09→23:15)
[2021-09-12] MEDS: QUEtiapine Fumarate 300 MG TABLET PO SCH ×2 (03:42→21:10)
[2021-09-12] MEDS: Gabapentin 300 MG CAPSULE PO SCH ×4 (03:42→20:03)
[2021-09-12] MEDS: Ringers Solution, Lactated 1,000 ML IVC SCH (05:27)
[2021-09-12] MEDS: ATOMOXETINE HCL 25 MG PO SCH (08:15)
[2021-09-12] MEDS: BuPROPion XL (24 HR) 150 MG TABLET PO SCH (08:15)
[2021-09-12] MEDS: Cholecalciferol (D-3) 1,000 UNIT (25MCG) TABLET PO SCH (08:15)
[2021-09-12] MEDS ORDERED: Ketorolac 15 MG/ML VIAL IVP PRN (11:18)
[2021-09-12 14:42] LABS: Basophils % 0.1 %; Eosinophils # 0.1 K/mcL (0.0-0.6); Eosinophils % 0.5 %; Hematocrit 34.8 % (37.5-50.1); Hemoglobin 11.5 g/dL (12.9-16.9); Immature Granulocytes % 0.4 % (0-4); Lymphocytes % 10.3 %; Mean Corpuscular Hemoglobin 28.8 pg (28.0-33.3); Mean Corpuscular Volume 87.2 fL (83.0-100.0); Mean Platelet Volume 8.9 fL (9.4-12.4); Monocytes # 0.6 K/mcL (0.0-1.3); Monocytes % 6.2 %; Neutrophils # 7.6 K/mcL (1.6-8.9); Platelet Count 284 K/mcL (140-400); Red Blood Count 3.99 M/mcL (4.19-5.50); Red Cell Distribution Width 14.6 % (11.5-14.5); Segmented Neutrophils % 82.5 %; White Blood Count 9.2 K/mcL (4.3-11.1)
[2021-09-12 15:02] LABS: BUN/Creatinine Ratio 10 (6-26); Blood Urea Nitrogen 9 mg/dL (6-20); Calcium 8.5 mg/dL (8.6-10.3); Carbon Dioxide 21 mEq/L (23-29); Chloride 100 mEq/L (98-107); Glucose 375 mg/dL (70-105); Magnesium 1.6 mg/dL (1.6-2.6); Osmolality,Calculated 280 (280-300); Potassium 4.6 mEq/L (3.5-5.1); Sodium 128 mEq/L (136-145); eGFR For African Americans > 60 (> 60); eGFR For Non-African Americans > 60 (> 60)
[2021-09-12] MEDS ORDERED: Insulin DETEMIR 100 UNIT/ML X5UNITS SUBQ SCH (21:00)
[2021-09-13] MEDS: Insulin LISPRO 300 UNITS/3 ML VIAL SUBQ SCH ×3 (05:56→18:27)
[2021-09-13] MEDS: Cholecalciferol (D-3) 1,000 UNIT (25MCG) TABLET PO SCH (10:16)
[2021-09-13] MEDS: BuPROPion XL (24 HR) 150 MG TABLET PO SCH (10:16)
[2021-09-13] MEDS: Gabapentin 300 MG CAPSULE PO SCH ×3 (10:16→19:56)
[2021-09-13] MEDS: Insulin NPH/REG 70/30 100 UNIT/ML (x5UNIT) SUBQ SCH ×2 (10:17→19:33)
[2021-09-13] MEDS: ATOMOXETINE HCL 25 MG PO SCH (10:17)
[2021-09-13] MEDS: QUEtiapine Fumarate 300 MG TABLET PO SCH (19:56)
[2021-09-14] MEDS: Insulin LISPRO 300 UNITS/3 ML VIAL SUBQ SCH ×4 (01:10→16:17)
[2021-09-14] MEDS: Gabapentin 300 MG CAPSULE PO SCH ×3 (09:09→20:10)
[2021-09-14] MEDS: Cholecalciferol (D-3) 1,000 UNIT (25MCG) TABLET PO SCH (09:10)
[2021-09-14] MEDS: ATOMOXETINE HCL 25 MG PO SCH (09:10)
[2021-09-14] MEDS: Insulin NPH/REG 70/30 100 UNIT/ML (x5UNIT) SUBQ SCH ×2 (09:12→17:11)
[2021-09-14] MEDS: BuPROPion XL (24 HR) 150 MG TABLET PO SCH (09:13)
[2021-09-14] MEDS ORDERED: Insulin LISPRO 300 UNITS/3 ML VIAL SUBQ STA (09:24)
[2021-09-14] MEDS: QUEtiapine Fumarate 300 MG TABLET PO SCH (20:10)
[2021-09-15] MEDS: Insulin LISPRO 300 UNITS/3 ML VIAL SUBQ SCH ×2 (00:53→05:51)
[2021-09-15] MEDS: Cholecalciferol (D-3) 1,000 UNIT (25MCG) TABLET PO SCH (08:42)
[2021-09-15] MEDS: BuPROPion XL (24 HR) 150 MG TABLET PO SCH (08:42)
[2021-09-15] MEDS: Gabapentin 300 MG CAPSULE PO SCH (08:42)
[2021-09-15] MEDS: ATOMOXETINE HCL 25 MG PO SCH (08:43)
[2021-09-15] MEDS ORDERED: Insulin NPH/REG 70/30 100 UNIT/ML (x5UNIT) SUBQ SCH ×2 (09:00→18:00)
[2021-09-15 12:20] VITALS: BP 136/83; PULSE 68; TEMP 98.3; O2SAT 98
== END 2021-09-15 13:12 | disposition home or self-care (01) ==
LOC: 3NENU 13:56 → EMEROOARM 13:56 → SUATTDRO 20:48 → 3NENU 22:10 → 3BNU 09-14 14:18
PROVIDERS: ADMIT Internal Medicine; ATTEND Internal Medicine

== ENCOUNTER 2021-10-05 10:05 | Observation (INO) ==
[2021-10-05] MEDS ORDERED: 0.9 % Sodium Chloride 1,000 ML IVC ONE (10:12)
[2021-10-05] MEDS ORDERED: Ondansetron 4 MG/2 ML VIAL IVP ONE (10:12)
[2021-10-05 10:53] LABS: Basophils % 0.4 %; Eosinophils % 0.2 %; Hematocrit 36.5 % (37.5-50.1); Hemoglobin 11.5 g/dL (12.9-16.9); Immature Granulocytes % 0.7 % (0-4); Lymphocytes # 0.5 K/mcL (0.6-4.6); Lymphocytes % 11.1 %; Mean Corpuscular HGB Conc 31.5 g/dL (31.6-35.5); Mean Corpuscular Hemoglobin 28.7 pg (28.0-33.3); Mean Platelet Volume 9.1 fL (9.4-12.4); Monocytes # 0.4 K/mcL (0.0-1.3); Monocytes % 7.9 %; Neutrophils # 3.7 K/mcL (1.6-8.9); Platelet Count 276 K/mcL (140-400); Red Blood Count 4.01 M/mcL (4.19-5.50); Red Cell Distribution Width 15.9 % (11.5-14.5); Segmented Neutrophils % 79.7 %; White Blood Count 4.6 K/mcL (4.3-11.1)
[2021-10-05 11:01] LABS: VBG HCO3 23 mEq/L (21-27); VBG PCO2 43 mmHg (41-51); VBG PH 7.34 pH Units (7.32-7.42); VBG PO2 57 mmHg (25-50)
[2021-10-05 11:06] LABS: Estimated Average Glucose 237 mg/dl; Hemoglobin A1C 9.9 %
[2021-10-05 11:20] LABS: Bilirubin,Urine Negative (Negative); Blood,Urine Negative (Negative); Clarity,Urine Clear (Clear); Color,Urine Colorless (Yellow); Glucose,Urine (UA) >=1000 mg/dL (Normal); Ketones,Urine 10 mg/dL (Negative); Leukocyte Esterase,Urine Negative (Negative); Nitrite,Urine Negative (Negative); Protein,Urine Negative (Neg-Trace); RBC,Urine 0-3 per hpf (0-3); Urobilinogen,Urine Normal (Normal); WBC,Urine 0-3 per hpf (0-3)
[2021-10-05 12:02] LABS: BUN/Creatinine Ratio 31 (6-26); Blood Urea Nitrogen 25 mg/dL (6-20); Calcium 9.1 mg/dL (8.6-10.3); Carbon Dioxide 23 mEq/L (23-29); Chloride 102 mEq/L (98-107); Glucose 547 mg/dL (70-105); Osmolality,Calculated 313 (280-300); Potassium 4.1 mEq/L (3.5-5.1); Salicylate < 2.5 mg/dL (15.0-30.0); Sodium 137 mEq/L (136-145); eGFR For African Americans > 60 (> 60); eGFR For Non-African Americans > 60 (> 60)
[2021-10-05] MEDS ORDERED: Insulin Regular, Human 100 UNIT/ML SUBQ ONE ×2 (14:07→16:05)
[2021-10-05 15:43] LABS: Amphetamine Screen,Urine Positive ng/mL (Cutoff=1000); Barbiturate Screen,Urine Negative ng/mL (Cutoff=200); Benzodiazepines Screen,Urine Negative ng/mL (Cutoff=200); Cannabinoid Screen,Urine Negative ng/mL (Cutoff = 50); Cocaine Screen,Urine Negative ng/mL (Cutoff= 300); Opiate Screen,Urine Negative ng/mL (Cutoff=300); Phencyclidine Screen,Urine Negative ng/mL (Cutoff=25)
[2021-10-05] MEDS ORDERED: Insulin DETEMIR 100 UNIT/ML X5UNITS SUBQ STA (16:04)
[2021-10-05 18:07] LABS: Acetaminophen < 10 mcg/mL (10-20); Ethanol < 10 mg/dL (Less than 10)
[2021-10-05 22:00] LABS: Influenza A PCR Negative (Negative); Influenza B PCR Negative (Negative); Resp. Syncytial Virus PCR Negative (Negative)
[2021-10-05 22:20] LABS: SARS-CoV-2 by PCR (In House) Negative (Negative)
[2021-10-06] MEDS ORDERED: Naloxone 0.4 MG/ML INJ IVP PRN (02:46)
[2021-10-06] MEDS ORDERED: Dextrose Gel 15 GM/37.5 ML TUBE PO ONE (02:50)
[2021-10-06] MEDS ORDERED: Ondansetron 4 MG/2 ML VIAL IVP PRN (02:51)
[2021-10-06] MEDS ORDERED: *HR* Dextrose 50 % in Water (Syg) 50 ML SYRINGE IVP PRN (02:58)
[2021-10-06] MEDS ORDERED: Dextrose Gel 15 GM/37.5 ML TUBE PO PRN ×2 (02:58)
[2021-10-06] MEDS ORDERED: D5% in Water 1,000 ML IVC PRN (02:58)
[2021-10-06] MEDS ORDERED: Insulin LISPRO 300 UNITS/3 ML VIAL SUBQ SCH (04:00)
[2021-10-06 08:43] LABS: Hematocrit 40.2 % (37.5-50.1); Hemoglobin 13.3 g/dL (12.9-16.9); Mean Corpuscular HGB Conc 33.1 g/dL (31.6-35.5); Mean Corpuscular Hemoglobin 29.6 pg (28.0-33.3); Mean Corpuscular Volume 89.5 fL (83.0-100.0); Mean Platelet Volume 9.1 fL (9.4-12.4); Platelet Count 317 K/mcL (140-400); Red Blood Count 4.49 M/mcL (4.19-5.50); Red Cell Distribution Width 16.1 % (11.5-14.5); White Blood Count 5.4 K/mcL (4.3-11.1)
[2021-10-06] MEDS ORDERED: Insulin NPH/REG 70/30 100 UNIT/ML (x5UNIT) SUBQ SCH ×2 (09:00→18:00)
[2021-10-06 11:01] LABS: BUN/Creatinine Ratio 21 (6-26); Blood Urea Nitrogen 16 mg/dL (6-20); Calcium 8.7 mg/dL (8.6-10.3); Carbon Dioxide 28 mEq/L (23-29); Chloride 100 mEq/L (98-107); Glucose 351 mg/dL (70-105); Osmolality,Calculated 293 (280-300); Potassium 3.8 mEq/L (3.5-5.1); Sodium 134 mEq/L (136-145); eGFR For African Americans > 60 (> 60); eGFR For Non-African Americans > 60 (> 60)
[2021-10-06] MEDS: Insulin LISPRO 300 UNITS/3 ML VIAL SUBQ SCH ×3 (16:10→20:46)
[2021-10-06] MEDS: Gabapentin 300 MG CAPSULE PO SCH ×2 (16:25→20:32)
[2021-10-06] MEDS ORDERED: Insulin Human Regular 10 UNIT in 0.9 % Sodium Chloride 10 ML IV ONE (19:46)
[2021-10-06] MEDS: haloperidoL 1 MG TABLET PO SCH (20:32)
[2021-10-06] MEDS: hydrOXYzine pamoate 25 MG CAPSULE PO SCH (20:33)
[2021-10-06] MEDS ORDERED: QUEtiapine Fumarate 300 MG TABLET PO SCH (21:00)
[2021-10-07] MEDS: *HR* Enoxaparin 40 MG/0.4 ML SYRINGE SQ SCH (06:07)
[2021-10-07] MEDS: haloperidoL 1 MG TABLET PO SCH ×2 (08:51→22:06)
[2021-10-07] MEDS: hydrOXYzine pamoate 25 MG CAPSULE PO SCH ×2 (08:52→22:06)
[2021-10-07] MEDS: Gabapentin 300 MG CAPSULE PO SCH ×3 (08:52→22:06)
[2021-10-07] MEDS: Insulin NPH/REG 70/30 100 UNIT/ML (x5UNIT) SUBQ SCH (08:53)
[2021-10-07] MEDS: Insulin LISPRO 300 UNITS/3 ML VIAL SUBQ SCH ×3 (08:53→16:47)
[2021-10-07] MEDS ORDERED: Insulin NPH/REG 70/30 100 UNIT/ML (x5UNIT) SUBQ SCH (18:00)
[2021-10-08] MEDS: *HR* Enoxaparin 40 MG/0.4 ML SYRINGE SQ SCH (05:39)
[2021-10-08] MEDS: haloperidoL 1 MG TABLET PO SCH (07:27)
[2021-10-08] MEDS: Gabapentin 300 MG CAPSULE PO SCH ×2 (07:27→17:10)
[2021-10-08] MEDS: hydrOXYzine pamoate 25 MG CAPSULE PO SCH (07:27)
[2021-10-08] MEDS: Insulin LISPRO 300 UNITS/3 ML VIAL SUBQ SCH ×3 (07:28→17:11)
[2021-10-08] MEDS: Insulin NPH/REG 70/30 100 UNIT/ML (x5UNIT) SUBQ SCH (07:59)
[2021-10-08 10:45] VITALS: PULSE 82
[2021-10-08 15:36] VITALS: BP 101/61; TEMP 98.6; O2SAT 93
[2021-10-08] MEDS ORDERED: Insulin NPH/REG 70/30 100 UNIT/ML (x5UNIT) SUBQ SCH (18:00)
[2021-10-09] MEDS ORDERED: Insulin NPH/REG 70/30 100 UNIT/ML (x5UNIT) SUBQ SCH (09:00)
== END 2021-10-08 17:57 ==
LOC: EMEROOARM 10:05 → 3BNU 10:05 → SUATTDRO 10-06 14:51 → 3BNU 10-06 15:27
PROVIDERS: ADMIT Internal Medicine; ATTEND Internal Medicine

== ENCOUNTER 2022-05-24 14:06 | Observation (INO) ==
[2022-05-24 15:02] LABS: Basophils # 0.1 K/mcL (0.0-0.2); Basophils % 0.5 %; Eosinophils % 0.1 %; Hematocrit 42.6 % (37.5-50.1); Hemoglobin 13.1 g/dL (12.9-16.9); Immature Granulocytes % 1.4 % (0-4); Lymphocytes # 0.7 K/mcL (0.6-4.6); Lymphocytes % 4.9 %; Mean Corpuscular HGB Conc 30.8 g/dL (31.6-35.5); Mean Corpuscular Hemoglobin 27.6 pg (28.0-33.3); Mean Corpuscular Volume 89.9 fL (83.0-100.0); Mean Platelet Volume 9.3 fL (9.4-12.4); Monocytes # 0.3 K/mcL (0.0-1.3); Monocytes % 2.4 %; Neutrophils # 12.2 K/mcL (1.6-8.9); Platelet Count 478 K/mcL (140-400); Red Blood Count 4.74 M/mcL (4.19-5.50); Red Cell Distribution Width 15.8 % (11.5-14.5); Segmented Neutrophils % 90.7 %; White Blood Count 13.5 K/mcL (4.3-11.1)
[2022-05-24 15:03] LABS: VBG HCO3 13 mEq/L (21-27); VBG PCO2 37 mmHg (41-51); VBG PH 7.14 pH Units (7.32-7.42); VBG PO2 60 mmHg (25-50)
[2022-05-24] MEDS: 0.9 % Sodium Chloride 1,000 ML IVC SCH ×2 (15:04→15:28)
[2022-05-24 15:19] LABS: Alanine Aminotransferase 51 Units/L (7-52); Albumin 4.7 g/dL (3.5-5.7); Albumin/Globulin Ratio 1.6 (1.1-2.2); Alkaline Phosphatase 159 Units/L (34-104); Aspartate Amino Transferase 50 Units/L (13-39); BUN/Creatinine Ratio 17 (6-26); Bilirubin,Total 0.6 mg/dL (0.3-1.0); Blood Urea Nitrogen 19 mg/dL (6-20); Calcium 9.9 mg/dL (8.6-10.3); Carbon Dioxide 13 mEq/L (23-29); Chloride 88 mEq/L (98-107); Glucose 644 mg/dL (70-105); Magnesium 1.9 mg/dL (1.6-2.6); Osmolality,Calculated 301 (280-300); Potassium 4.6 mEq/L (3.5-5.1); Sodium 129 mEq/L (136-145); Total Protein 7.7 g/dL (6.4-8.9); eGFR For African Americans > 60 (> 60); eGFR For Non-African Americans > 60 (> 60)
[2022-05-24 15:25] LABS: Troponin I < 0.03 ng/mL (< 0.04)
[2022-05-24] MEDS ORDERED: D5% in 0.45% NACL 1,000 ML IVC PRN (16:30)
[2022-05-24] MEDS ORDERED: Naloxone 0.4 MG/ML INJ IVP PRN (16:30)
[2022-05-24] MEDS ORDERED: *HR* Dextrose 50 % in Water (Syg) 50 ML SYRINGE IVP PRN (16:30)
[2022-05-24] MEDS ORDERED: Acetaminophen 325 MG TABLET PO PRN (16:30)
[2022-05-24] MEDS ORDERED: Insulin Regular, Human 100 UNIT/ML IV PRN (16:30)
[2022-05-24] MEDS ORDERED: Ondansetron 4 MG/2 ML VIAL IVP PRN (16:30)
[2022-05-24] MEDS: 0.9 % Sodium Chloride w KCl 20 MEQ/1,000 ML MLS IVC SCH ×2 (17:01→19:44)
[2022-05-24] MEDS: *HR* Heparin 5,000 UNIT/ML VIAL SQ SCH (18:02)
[2022-05-24 19:54] LABS: BUN/Creatinine Ratio 17 (6-26); Blood Urea Nitrogen 18 mg/dL (6-20); Calcium 8.7 mg/dL (8.6-10.3); Carbon Dioxide 18 mEq/L (23-29); Chloride 102 mEq/L (98-107); Ethanol < 10 mg/dL (Less than 10); Glucose 309 mg/dL (70-105); Osmolality,Calculated 294 (280-300); Potassium 4.3 mEq/L (3.5-5.1); Sodium 135 mEq/L (136-145); eGFR For African Americans > 60 (> 60); eGFR For Non-African Americans > 60 (> 60)
[2022-05-24 20:37] LABS: VBG HCO3 18 mEq/L (21-27); VBG PCO2 37 mmHg (41-51); VBG PH 7.29 pH Units (7.32-7.42); VBG PO2 83 mmHg (25-50)
[2022-05-24] MEDS: D5% in 0.45% NACL w KCl 20 MEQ/1,000 ML MLS IVC PRN (21:36)
[2022-05-24] MEDS ORDERED: *HR* Labetalol 20 MG/4 ML SYRINGE IVP ONE (21:54)
[2022-05-25] MEDS: 0.9 % Sodium Chloride w KCl 20 MEQ/1,000 ML MLS IVC SCH ×2 (00:17→05:31)
[2022-05-25] MEDS: D5% in 0.45% NACL w KCl 20 MEQ/1,000 ML MLS IVC PRN ×2 (01:33→05:30)
[2022-05-25 02:58] VITALS: BP 156/80; PULSE 78; TEMP 98.3; O2SAT 98
[2022-05-25] MEDS: *HR* Heparin 5,000 UNIT/ML VIAL SQ SCH ×2 (03:14→17:13)
[2022-05-25 08:15] LABS: VBG HCO3 24 mEq/L (21-27); VBG PCO2 45 mmHg (41-51); VBG PH 7.33 pH Units (7.32-7.42); VBG PO2 121 mmHg (25-50)
[2022-05-25 08:23] LABS: Basophils % 0.4 %; Eosinophils % 0.5 %; Hematocrit 35.1 % (37.5-50.1); Immature Granulocytes % 0.6 % (0-4); Lymphocytes # 1.2 K/mcL (0.6-4.6); Lymphocytes % 14.4 %; Mean Corpuscular HGB Conc 32.2 g/dL (31.6-35.5); Mean Corpuscular Hemoglobin 27.6 pg (28.0-33.3); Mean Corpuscular Volume 85.6 fL (83.0-100.0); Mean Platelet Volume 8.5 fL (9.4-12.4); Monocytes # 0.7 K/mcL (0.0-1.3); Monocytes % 8.2 %; Neutrophils # 6.4 K/mcL (1.6-8.9); Platelet Count 323 K/mcL (140-400); Red Cell Distribution Width 15.9 % (11.5-14.5); Segmented Neutrophils % 75.9 %; White Blood Count 8.4 K/mcL (4.3-11.1)
[2022-05-25 08:24] LABS: Hemoglobin 11.3 g/dL (12.9-16.9)
[2022-05-25 08:32] LABS: BUN/Creatinine Ratio 15 (6-26); Blood Urea Nitrogen 13 mg/dL (6-20); Calcium 8.2 mg/dL (8.6-10.3); Carbon Dioxide 25 mEq/L (23-29); Chloride 109 mEq/L (98-107); Glucose 89 mg/dL (70-105); Magnesium 1.7 mg/dL (1.6-2.6); Osmolality,Calculated 288 (280-300); Phosphorous 2.5 mg/dL (2.7-4.5); Potassium 3.7 mEq/L (3.5-5.1); Sodium 139 mEq/L (136-145); eGFR For African Americans > 60 (> 60); eGFR For Non-African Americans > 60 (> 60)
[2022-05-25] MEDS ORDERED: Insulin NPH/REG 70/30 100 UNIT/ML (x5UNIT) SUBQ SCH ×2 (09:15→18:00)
[2022-05-25] MEDS ORDERED: *HR* Dextrose 50 % in Water (Syg) 50 ML SYRINGE IVP PRN (09:22)
[2022-05-25] MEDS ORDERED: D5% in Water 1,000 ML IVC PRN (09:22)
[2022-05-25] MEDS ORDERED: Dextrose Gel 15 GM/37.5 ML TUBE PO PRN ×2 (09:22)
[2022-05-25 10:27] LABS: Estimated Average Glucose 301 mg/dl; Hemoglobin A1C 12.1 %
[2022-05-25] MEDS: Insulin LISPRO 300 UNITS/3 ML VIAL SUBQ SCH ×2 (12:02→17:09)
[2022-05-25] MEDS: Gabapentin 300 MG CAPSULE PO SCH ×2 (15:09→21:00)
[2022-05-25] MEDS: Cholecalciferol (D-3) 1,000 UNIT (25MCG) TABLET PO SCH (15:09)
[2022-05-25] MEDS: Insulin NPH/REG 70/30 100 UNIT/ML (x5UNIT) SUBQ SCH (17:01)
[2022-05-25] MEDS ORDERED: QUEtiapine Fumarate 300 MG TABLET PO SCH (21:00)
[2022-05-26] MEDS: *HR* Heparin 5,000 UNIT/ML VIAL SQ SCH ×2 (06:23→15:34)
[2022-05-26] MEDS: Insulin NPH/REG 70/30 100 UNIT/ML (x5UNIT) SUBQ SCH ×2 (07:28→15:34)
[2022-05-26] MEDS: Gabapentin 300 MG CAPSULE PO SCH ×2 (07:28→14:39)
[2022-05-26] MEDS: Insulin LISPRO 300 UNITS/3 ML VIAL SUBQ SCH ×3 (07:28→13:21)
[2022-05-26] MEDS: Cholecalciferol (D-3) 1,000 UNIT (25MCG) TABLET PO SCH (07:28)
[2022-05-26 14:11] LABS: Influenza A PCR Negative (Negative); Influenza B PCR Negative (Negative); Resp. Syncytial Virus PCR Negative (Negative)
[2022-05-26 15:12] LABS: SARS-CoV-2 by PCR (In House) Negative (Negative)
== END 2022-05-26 19:30 | disposition home or self-care (01) ==
LOC: EMEROOARM 14:06 → 2NNU 14:06 → 3BNU 05-25 15:26
PROVIDERS: ADMIT Internal Medicine; ATTEND Internal Medicine